=== PATIENT | male | born 1945 | race African-American/Black ===

== ENCOUNTER 2018-07-04 14:17 | Inpatient (IN) | payer MEDICARE, MEDICAID ==
[~2018-07-04] VITALS: Ht 180.3 cm; Wt 99.0 kg
[2018-07-04 14:40] VITALS: BP 146/88
--- NOTE | 2018-07-04 14:47 | Emergency Room Report ---
History of Present Illness General Chief Complaint: Abnormal Labs Source: Patient Present Illness HPI 73-year-old male, bedbound, nonverbal, trach, ventilator dependent, PEG tube, history of CHF, COPD, diabetes, dementia, coming in for abnormal labs. Reportedly patient had labs showing sodium 153, glucose 797 Per [facility] charts, patient has been on vancomycin for positive CR E by rectal swab. No history able to be obtained as patient is nonverbal at this time Allergies: Coded Allergies: No Known Allergies (Unverified , 07/04/18) Patient History Past Medical History: see triage record Past Surgical History: none Pertinent Family History: none Reviewed Nursing Documentation: PMH: Agreed; PSxH: Agreed Nursing Documentation-PMH Hx Cardiac Problems: No - CHF, anemia, hx of cardiac arrest, HF Hx Hypertension: Yes Hx COPD: Yes - tracheostomy, on vent Hx Diabetes: Yes Hx Gastrointestinal Problems: No - dysphagia, g-tube, GERD History Of Psychiatric Problem: No - dementia, anxiety Hx Neurological Problems: No - muscle weakness Hx Seizures: Yes Review of Systems All Other Systems: limited - nonverbal Physical Exam Vital Signs Date Time Temp Pulse Resp B/P (MAP) Pulse Ox O2 Delivery O2 Flow Rate FiO2 07/04/18 14:16 97.5 94 22 120/87 95 Mechanical Ventilator Sp02 EP Interpretation: other - vented General Appearance: moderate distress, lethargic, Chronically Ill Head: normocephalic, atraumatic Eyes: bilateral eye normal inspection, bilateral eye PERRL, bilateral eye EOMI ENT: other - trach Neck: other - trach Respiratory: other - [facility] ventilatory sounds. Cardiovascular #1: normal inspection, regular rate, rhythm, normal capillary refill Cardiovascular #2: 2+ radial (R), 2+ radial (L) Gastrointestinal: other - peg tube, soft abdomen, no grimace to deep palpation Genitourinary: no CVA tenderness Musculoskeletal: other - contracted lower ext Neurologic: other - nonverbal Psychiatric: other Skin: normal inspection, normal color, no rash, warm/dry, well hydrated, normal turgor Procedures Critical Care Time Critical Care Time 40 minutes of CC time 73-year-old male, dehydrated, hyponatremic, hyperglycemic PLAN: IV access, labs, lactate, troponin, Blood/Urine Cx, Abx, IVF Anticipate admission to [facility] CC time also includes review of labs, review of EMR, discussion with family and paperwork from SNF, d/w hospitalist CC could include dosing of pressors, additional Abx CC time does not include procedures Medical Decision Making Diagnostic Impression: Primary Impression: Hypernatremia Additional Impressions: Dehydration Renal insufficiency Elevated troponin I level Tracheostomy dependence Sepsis UTI (urinary tract infection) Pleural effusion ER Course 73-year-old male, abnormal labs, hip or HI [place] hyperglycemic DDX: Severe dehydration, rule out infection, rule out DKA Plan: Obtain labs, ua, EKG, CXR Fluids ER course: Patient has been monitored during ED stay, HD stable Tracheostomy to ventilator +UTI given fluids and abx Sepsis Re-examination Time: 4:56 PM VS: Temp afebrile HR 84 BP 117/79 RR 16 CVS: RRR Respiratory: Tracheostomy, mechanical breath sounds Peripheral pulses: 2+ radial Capillary refill: <2 seconds Skin exam: warm, dry, no rash, not mottled Disposition: Patient is to be admitted to [facility] D/W hospitalist Dr. peña, who said to admit patient to Dr. Galeana who is now aware of pt Please note that this Emergency Department Report was dictated using [employer] fabricator operator technology software, occasionally this can lead to erroneous entry secondary to interpretation by the dictation equipment. EKG Diagnostic Results EP Interpretation: Yes Rate: 105 Rhythm: NSR ST Segments: T-wave inversion V3. T-wave flattening V5 V6 T-wave inversion in lead 3 and aVF ASA given to patient: No Rhythm Strip EP Interpretation: Yes Rate: 100 Rhythm: NSR, no PVCs, no ectopy Chest X-ray CXR: Ordered: Yes 1 view Indication: Altered mental status EP interpretation: Yes Interpretation: Cardiomegaly, tracheostomy in place, bilateral pleural effusion Impression: Cardiomegaly, tracheostomy in place, bilateral pleural effusion Electronically signed by Gulshan Mendez MD Laboratory Tests Test 07/04/18 14:44 07/04/18 14:45 07/04/18 15:10 07/04/18 16:15 Arterial Blood pH 7.431 (7.350-7.450) Arterial Blood Partial Pressure CO2 40.9 mmHg (35.0-45.0) Arterial Blood Partial Pressure O2 96.0 mmHg (75.0-100.0) Arterial Blood HCO3 26.6 mmol/L (22.0-26.0) H Arterial Blood Oxygen Saturation 96.7 % (95-100) Arterial Blood Base Excess 2.1 (-2-2) H Balta Test Positive White Blood Count 16.8 K/UL (4.8-10.8) H Red Blood Count 5.37 M/UL (4.70-6.10) Hemoglobin 15.1 G/DL (14.2-18.0) Hematocrit 47.0 % (42.0-52.0) Mean Corpuscular Volume 88 FL (80-99) Mean Corpuscular Hemoglobin 28.2 PG (27.0-31.0) Mean Corpuscular Hemoglobin Concent 32.2 G/DL (32.0-36.0) Red Cell Distribution Width 16.1 % (11.6-14.8) H Platelet Count 176 K/UL (150-450) Mean Platelet Volume 10.4 FL (6.5-10.1) H Neutrophils (%) (Auto) 62.8 % (45.0-75.0) Lymphocytes (%) (Auto) 27.9 % (20.0-45.0) Monocytes (%) (Auto) 7.8 % (1.0-10.0) Eosinophils (%) (Auto) 0.8 % (0.0-3.0) Basophils (%) (Auto) 0.7 % (0.0-2.0) Sodium Level 157 MMOL/L (136-145) H Potassium Level 3.0 MMOL/L (3.5-5.1) L Chloride Level 116 MMOL/L (98-107) H Carbon Dioxide Level 24 MMOL/L (21-32) Anion Gap 17 mmol/L (5-15) H Blood Urea Nitrogen 59 mg/dL (7-18) H Creatinine 1.9 MG/DL (0.55-1.30) H Estimate Glomerular Filtration Rate mL/min (>60) Glucose Level 344 MG/DL (74-106) H Lactic Acid Level 3.80 mmol/L (0.4-2.0) H Pending Calcium Level 9.5 MG/DL (8.5-10.1) Phosphorus Level 5.8 MG/DL (2.5-4.9) H Magnesium Level 2.6 MG/DL (1.8-2.4) H Total Bilirubin 0.7 MG/DL (0.2-1.0) Aspartate Amino Transferase (AST) 59 U/L (15-37) H Alanine Aminotransferase (ALT) 27 U/L (12-78) Alkaline Phosphatase 89 U/L (46-116) Troponin I 0.152 ng/mL (0.000-0.056) Pro-B-Type Natriuretic Peptide 1031 pg/mL (0-125) H Total Protein 10.7 G/DL (6.4-8.2) H Albumin 2.8 G/DL (3.4-5.0) L Globulin 7.9 g/dL Albumin/Globulin Ratio 0.4 (1.0-2.7) L Urine Color Yellow Urine Appearance Cloudy Urine pH 5 (4.5-8.0) Urine Specific [place] 1.015 (1.005-1.035) Urine Protein 3+ (NEGATIVE) H Urine Glucose (UA) Negative (NEGATIVE) Urine Ketones 1+ (NEGATIVE) H Urine Blood 4+ (NEGATIVE) H Urine Nitrite Negative (NEGATIVE) Urine Bilirubin Negative (NEGATIVE) Urine Urobilinogen 1 MG/DL (0.0-1.0) H Urine Leukocyte Esterase 3+ (NEGATIVE) H Urine RBC 2-4 /HPF (0 - 0) H Urine WBC 5-10 /HPF (0 - 0) H Urine Squamous Epithelial Cells Occasional /LPF Urine Amorphous Sediment Many /LPF (NONE) H Urine Bacteria Moderate /HPF (NONE) H Last Vital Signs Date Time Temp Pulse Resp B/P (MAP) Pulse Ox O2 Delivery O2 Flow Rate FiO2 07/04/18 14:16 97.5 94 22 120/87 95 Mechanical Ventilator Disposition: ADMITTED INPATIENT Condition: Critical Scripts Unable to Obtain Active Prescriptions or Reported Meds Gulshan Mendez M.D. Jul 04, 2018 14:47
[2018-07-04 15:18] LABS: BASOPHILS % (AUTO) 0.7 % (0.0-2.0); EOSINOPHILS % (AUTO) 0.8 % (0.0-3.0); HEMOGLOBIN 15.1 G/DL (14.2-18.0); LYMPHOCYTES % (AUTO) 27.9 % (20.0-45.0); MEAN CORPUSCULAR VOLUME 88 FL (80-99); MONOCYTES % (AUTO) 7.8 % (1.0-10.0); NEUTROPHILS % (AUTO) 62.8 % (45.0-75.0); PLATELET COUNT 176 K/UL (150-450); RED BLOOD COUNT 5.37 M/UL (4.70-6.10); RED CELL DISTRIBUTION WIDTH 16.1 % (11.6-14.8); WHITE BLOOD COUNT 16.8 K/UL (4.8-10.8)
[2018-07-04 15:29] LABS: APPEARANCE,URINE CLOUDY; BILIRUBIN, URINE NEGATIVE (NEGATIVE); GLUCOSE, URINE (UA) NEGATIVE (NEGATIVE); KETONES,URINE 1+ (NEGATIVE); LEUKOCYTE ESTERASE ,URINE 3+ (NEGATIVE); NITRITE,URINE NEGATIVE (NEGATIVE); PH,URINE 5 (4.5-8.0); PROTEIN,URINE 3+ (NEGATIVE); UROBILINOGEN,URINE 1 MG/DL (0.0-1.0)
[2018-07-04 15:35] LABS: ANION GAP 17 mmol/L (5-15); BLOOD UREA NITROGEN 59 mg/dL (7-18); CALCIUM 9.5 MG/DL (8.5-10.1); CARBON DIOXIDE 24 MMOL/L (21-32); CHLORIDE 116 MMOL/L (98-107); CREATININE 1.9 MG/DL (0.55-1.30); SODIUM 157 MMOL/L (136-145)
[2018-07-04 15:38] LABS: COLOR,URINE YELLOW
[2018-07-04 15:46] LABS: ALANINE AMINOTRANSFERASE 27 U/L (12-78); ALBUMIN 2.8 G/DL (3.4-5.0); ALBUMIN/GLOBULIN RATIO 0.4 (1.0-2.7); ALKALINE PHOSPHATASE 89 U/L (46-116); ASPARTATE AMINO TRANSFERASE 59 U/L (15-37); BILIRUBIN,TOTAL 0.7 MG/DL (0.2-1.0); PHOSPHORUS 5.8 MG/DL (2.5-4.9)
[2018-07-04] MEDS ORDERED: Cefepime HCl 1 GM in D5W 55 ML IVPB ONE (16:00)
--- NOTE | 2018-07-04 16:24 | Diagnostic Imaging Report ---
Indication: Chest pain Comparison: None A single view chest radiograph was obtained. Findings: Tracheostomy is present. The heart is enlarged. There is basilar infiltrate versus atelectasis on the left. Suspect a small pleural effusion as well. Lung volumes are low. IMPRESSION: Suspected left basal infiltrate versus atelectasis.
[2018-07-04 16:30] VITALS: BP 142/83
[2018-07-04 17:30] VITALS: BP 136/71
[2018-07-04] MEDS ORDERED: VANCOMYCIN HCL125 MG IVPB (17:42)
[2018-07-04 18:15] VITALS: BP 114/75
[2018-07-04] MEDS ORDERED: Albuterol/Ipratropium 3ml neb HHN PRN (19:30)
[2018-07-04] MEDS ORDERED: Acetaminophen 650mg/20.3ml GT PRN (19:42)
[2018-07-04 20:00] VITALS: BP 118/71
[2018-07-04] MEDS ORDERED: Vancomycin 1250mg/D5W 250ml IVPB SCH (20:00)
[2018-07-04] MEDS: levETIRAcetam 500mg/5ml Liquid GT SCH (20:26)
[2018-07-04] MEDS: Heparin 5000 units/ml inj SUBQ SCH (20:27)
[2018-07-04] MEDS ORDERED: Potassium Chloride 10 MEQ in D5 1/2NS 1,000 ML IV SCH (21:00)
[2018-07-04] MEDS: Piperacillin/Tazobactam 3.375 GM in NS 110 ML IVPB SCH (22:40)
[2018-07-04] MEDS ORDERED: VANCOMYCIN HCL1 G1 IV (22:56)
[2018-07-04] MEDS ORDERED: DUONEB 0.5-3(2.53 ML HHN (22:56)
[2018-07-04] MEDS ORDERED: LANTUS SOL100 UNIT/1 SUBQ (22:56)
[2018-07-04] MEDS: NovoLOG Insulin Flexpen SUBQ SCH (23:38)
[2018-07-05] VITALS: BP 111/73
[2018-07-05 04:00] VITALS: BP 112/70
[2018-07-05] MEDS: Piperacillin/Tazobactam 3.375 GM in NS 110 ML IVPB SCH ×3 (05:04→21:06)
[2018-07-05] MEDS: NovoLOG Insulin Flexpen SUBQ SCH ×3 (05:06→17:21)
[2018-07-05 06:07] LABS: HEMATOCRIT 42.2 % (42.0-52.0); MEAN CORPUSCULAR VOLUME 87 FL (80-99); PLATELET COUNT 152 K/UL (150-450); RED BLOOD COUNT 4.84 M/UL (4.70-6.10); WHITE BLOOD COUNT 18.5 K/UL (4.8-10.8)
[2018-07-05 06:38] LABS: ALANINE AMINOTRANSFERASE 28 U/L (12-78); ALBUMIN 2.4 G/DL (3.4-5.0); ALBUMIN/GLOBULIN RATIO 0.3 (1.0-2.7); ALKALINE PHOSPHATASE 77 U/L (46-116); ANION GAP 15 mmol/L (5-15); ASPARTATE AMINO TRANSFERASE 41 U/L (15-37); BILIRUBIN,TOTAL 1.1 MG/DL (0.2-1.0); BLOOD UREA NITROGEN 54 mg/dL (7-18); CALCIUM 8.8 MG/DL (8.5-10.1); CARBON DIOXIDE 27 MMOL/L (21-32); CHLORIDE 117 MMOL/L (98-107); CREATININE 1.5 MG/DL (0.55-1.30); SODIUM 159 MMOL/L (136-145)
[2018-07-05 06:40] LABS: POTASSIUM 2.4 MMOL/L (3.5-5.1)
[2018-07-05 07:41] LABS: BILIRUBIN,DIRECT 0.4 MG/DL (0.0-0.3)
[2018-07-05 07:47] LABS: CKMB 1.6 NG/ML (0.0-3.6)
[2018-07-05 08:00] VITALS: BP 106/68
[2018-07-05] MEDS: levETIRAcetam 500mg/5ml Liquid GT SCH ×2 (09:22→20:12)
[2018-07-05] MEDS: Levemir Flexpen SUBQ SCH ×2 (09:24→17:22)
[2018-07-05] MEDS: Heparin 5000 units/ml inj SUBQ SCH ×2 (09:27→20:14)
[2018-07-05 11:23] VITALS: BP 127/83
--- NOTE | 2018-07-05 12:45 | History and Physical Report ---
DATE OF ADMISSION: 07/04/2018 CHIEF COMPLAINT: Sepsis, acute renal failure, chronic respiratory failure. HISTORY OF PRESENT ILLNESS: The patient is an unfortunate 73-year-old male. He has a history of anoxic encephalopathy, stroke, and seizure disorder. He has chronic respiratory failure and is now vent dependent, has a history of hypertension and cirrhosis. [facility] with complaints of abnormal laboratories. The patient was noted to have routine laboratories that showed worsening renal failure, leukocytosis, low potassium. On evaluation in the emergency room, the abnormal laboratories are verified and repeated. The patient was noted to have evidence of pneumonia, urinary tract infection. Broad-spectrum antibiotics were instituted and the patient was cultured. He is now admitted for further evaluation and care. He is nonverbal at baseline. He is unable to provide any history. PAST MEDICAL HISTORY: As above. PAST SURGICAL HISTORY: Includes a history of G-tube and tracheostomy. CURRENT MEDICATIONS: Reconciled and reviewed. ALLERGIES: None. FAMILY HISTORY: Unknown. SOCIAL HISTORY: There is no known history of tobacco, ethanol, or drugs. REVIEW OF SYSTEMS: From the patient is unobtainable as he is nonverbal at baseline. PHYSICAL EXAMINATION: VITAL SIGNS: Temperature 97.5, pulse 96, respirations 20, and blood pressure 112/70. GENERAL: The patient is a chronic ill-appearing male, in no apparent distress. He is nonverbal. NECK: Supple. Trach site was midline and clean. HEART: Regular rate and rhythm. LUNGS: Clear. ABDOMEN: Soft and nontender. Slightly distended. EXTREMITIES: No clubbing, cyanosis, or edema. LABORATORY AND DIAGNOSTIC DATA: Laboratories showed a sodium of 159, potassium 2.4, chloride 117, bicarb 27, BUN 54, creatinine 1.5. Bilirubin of 1.1. Troponin 0.134. Lactic acid level was 3. Natriuretic peptide level was 1000. Urine showed 5 to 10 wbc's. Chest x-ray showed left basilar infiltrate. ASSESSMENT: This is an unfortunate male with multiple medical problems admitted with complaints of sepsis secondary to pneumonia and urinary tract infection. PROBLEM LIST: 1. Sepsis. 2. Pneumonia. 3. Hypernatremia and dehydration. 4. Toxic metabolic encephalopathy. 5. Seizure disorder. 6. Acute renal failure. 7. Functional quadriplegia. 8. Cirrhosis. PLAN: IV hydration with hypotonic fluids. IV antibiotics. ID, Pulmonary, Cardiology, and Renal consultations to be obtained. We will monitor laboratories closely. Continue vent support. Respiratory treatments. The patient's status is currently guarded. Chano Galeana M.D. DR: JESI JOB#: [id number] CC:
[2018-07-05 16:00] VITALS: BP 128/78
[2018-07-05 16:45] LABS: ANION GAP 13 mmol/L (5-15); BLOOD UREA NITROGEN 58 mg/dL (7-18); CALCIUM 8.4 MG/DL (8.5-10.1); CARBON DIOXIDE 26 MMOL/L (21-32); CHLORIDE 120 MMOL/L (98-107); CREATININE 1.5 MG/DL (0.55-1.30); POTASSIUM 3.2 MMOL/L (3.5-5.1); SODIUM 159 MMOL/L (136-145)
[2018-07-05] MEDS: Vancomycin 1.5 GM/D5W 250ML IVPB SCH (16:47)
[2018-07-05 20:00] VITALS: BP 107/65
--- NOTE | 2018-07-05 22:18 | Pulmonology Progress Note ---
Assessment/Plan Assessment/Plan PULMONARY CONSULTATION NOTE HISTORY OF PRESENT ILLNESS: The patient is an unfortunate 73-year-old male. He has a history of anoxic encephalopathy, stroke, and seizure disorder. He has chronic respiratory failure and is now vent dependent, has a history of COPD, CAD, hypertension and cirrhosis. [facility] with complaints of abnormal laboratories. The patient was noted to have routine laboratories that showed worsening renal failure, leukocytosis, low potassium. On evaluation in the emergency room, the abnormal laboratories are verified and repeated. The patient was noted to have evidence of pneumonia, urinary tract infection. Broad-spectrum antibiotics were instituted and the patient was cultured. He is now admitted for further evaluation and care. He is nonverbal at baseline. He is unable to provide any history. PAST MEDICAL HISTORY: As above. PAST SURGICAL HISTORY: Includes a history of G-tube and tracheostomy. CURRENT MEDICATIONS: Reconciled and reviewed. ALLERGIES: None. FAMILY HISTORY: Unknown. SOCIAL HISTORY: There is no known history of tobacco, ethanol, or drugs. REVIEW OF SYSTEMS: From the patient is unobtainable as he is nonverbal at baseline. PHYSICAL EXAMINATION: VITAL SIGNS: Temperature 97.5, pulse 96, respirations 20, and blood pressure 112/70. GENERAL: The patient is a chronic ill-appearing male, in no apparent distress. He is nonverbal. NECK: Supple. Trach site was midline and clean. HEART: Regular rate and rhythm. LUNGS: Clear. ABDOMEN: Soft and nontender. Slightly distended. EXTREMITIES: No clubbing, cyanosis, or edema. LABORATORY AND DIAGNOSTIC DATA: Laboratories showed a sodium of 159, potassium 2.4, chloride 117, bicarb 27, BUN 54, creatinine 1.5. Bilirubin of 1.1. Troponin 0.134. Lactic acid level was 3. Natriuretic peptide level was 1000. Urine showed 5 to 10 wbc's. Chest x-ray showed left basilar infiltrate. ASSESSMENT: This is an unfortunate male with multiple medical problems admitted with complaints of sepsis secondary to pneumonia and urinary tract infection. PROBLEM LIST: 1. Sepsis. 2. Pneumonia, COPD 3. Hypernatremia and dehydration. 4. Toxic metabolic encephalopathy. 5. Seizure disorder. 6. Acute renal failure. 7. Functional quadriplegia. 8. Cirrhosis. 9. CAD PLAN: IV hydration with hypotonic fluids. IV antibiotics. Continue current ventilator settings. We will monitor laboratories closely. Continue vent support. Respiratory treatments. The patient's status is currently guarded. Subjective ROS Limited/Unobtainable: Yes Allergies: Coded Allergies: No Known Allergies (Unverified , 07/04/18) Objective Last 24 Hour Vital Signs Date Time Temp Pulse Resp B/P (MAP) Pulse Ox O2 Delivery O2 Flow Rate FiO2 07/05/18 21:57 80 16 36 07/05/18 20:00 98.1 86 16 107/65 (79) 99 07/05/18 20:00 87 07/05/18 20:00 36 07/05/18 20:00 Mechanical Ventilator 07/05/18 19:16 91 16 36 07/05/18 17:28 106 16 36 07/05/18 16:00 Mechanical Ventilator 07/05/18 16:00 105 07/05/18 16:00 97.7 104 20 128/78 (95) 99 07/05/18 16:00 36 07/05/18 14:42 81 16 36 07/05/18 12:41 85 16 36 07/05/18 12:00 99 07/05/18 12:00 36 07/05/18 11:35 Mechanical Ventilator 07/05/18 11:23 97.3 94 20 127/83 (98) 100 07/05/18 11:18 98 16 36 07/05/18 08:42 85 16 36 07/05/18 08:17 36 07/05/18 08:00 Mechanical Ventilator 07/05/18 08:00 97.7 80 20 106/68 (81) 99 07/05/18 07:47 79 07/05/18 06:56 83 16 36 07/05/18 05:11 86 16 36 07/05/18 04:00 36 07/05/18 04:00 97.5 88 20 112/70 (84) 99 07/05/18 04:00 Mechanical Ventilator 07/05/18 04:00 96 07/05/18 03:10 100 16 36 07/05/18 01:26 110 16 36 07/05/18 00:00 Mechanical Ventilator 07/05/18 00:00 97.8 79 22 111/73 (86) 98 07/05/18 00:00 101 07/05/18 00:00 36 07/04/18 23:30 91 20 36 Intake and Output 07/04/18 07/05/18 19:00 07:00 Intake Total 1548.0 ml Output Total 275 ml Balance 1273.0 ml Intake Free Water 300 ml IV Total 1073.0 ml Tube Feeding 175 ml Output Urine Total 275 ml # Bowel Movements 4 Microbiology Date/Time Source Procedure Growth Status 07/04/18 15:10 Urine,Clean Catch Urine Culture - Preliminary Gram Negative Bacillus 1 Resulted Laboratory Tests 07/05/18 04:01: White Blood Count 18.5H, Red Blood Count 4.84, Hemoglobin 14.0L, Hematocrit 42.2 , Mean Corpuscular Volume 87, Mean Corpuscular Hemoglobin 28.9, Mean Corpuscular Hemoglobin Concent 33.2, Red Cell Distribution Width 16.0H, Platelet Count 152, Mean Platelet Volume 12.5H, Neutrophils (%) (Auto) , Lymphocytes (%) (Auto) , Monocytes (%) (Auto) , Eosinophils (%) (Auto) , Basophils (%) (Auto) , Differential Total Cells Counted 100, Neutrophils % ( Manual) 77H, Lymphocytes % (Manual) 17L, Monocytes % (Manual) 5, Eosinophils % ( Manual) 1, Basophils % (Manual) 0, Band Neutrophils 0, Platelet Estimate Adequate, Platelet Morphology Normal, Anisocytosis 1+, Sodium Level 159H, Potassium Level 2.4*L, Chloride Level 117H, Carbon Dioxide Level 27, Anion Gap 15, Blood Urea Nitrogen 54H, Creatinine 1.5H, Estimat Glomerular Filtration Rate , Glucose Level 394H, Hemoglobin A1c 9.2H, Lactic Acid Level 3.00H, Calcium Level 8.8, Total Bilirubin 1.1H, Direct Bilirubin 0.4H, Aspartate Amino Transf (AST/SGOT) 41H, Alanine Aminotransferase (ALT/SGPT) 28, Alkaline Phosphatase 77, Total Creatine Kinase 922H, Creatine Kinase MB 1.6, Creatine Kinase MB Relative Index 0.1, Troponin I 0.134H, Total Protein 9.3H, Albumin 2.4L, Globulin 6.9, Albumin/Globulin Ratio 0.3L, Thyroid Stimulating Hormone ( TSH) 1.210 07/05/18 11:20: Lactic Acid Level 1.80 07/05/18 16:00: Sodium Level 159H, Potassium Level 3.2L, Chloride Level 120H, Carbon Dioxide Level 26, Anion Gap 13, Blood Urea Nitrogen 58H, Creatinine 1.5H, Estimat Glomerular Filtration Rate , Glucose Level 374H, Calcium Level 8.4L Current Medications Medications (Trade) Dose Ordered Sig/Derrick Route PRN Reason Start Time Stop Time Status Last Admin Dose Admin Acetaminophen (Tylenol) 650 mg Q4H PRN GT Mild Pain/Temp > 100.5 07/04/18 19:42 08/03/18 19:40 Albuterol/ Ipratropium (Albuterol/ Ipratropium) 3 ml Q4H PRN HHN Shortness of Breath 07/04/18 19:30 07/09/18 19:29 Dextrose (Dextrose 50%) 25 ml Q30M PRN IV Hypoglycemia 07/04/18 22:45 08/03/18 22:44 Dextrose (Dextrose 50%) 50 ml Q30M PRN IV Hypoglycemia 07/04/18 22:45 08/03/18 22:44 Heparin Sodium (Porcine) (Heparin 5000 units/ml) 5,000 units EVERY 12 HOURS SUBQ 07/04/18 21:00 08/03/18 20:59 07/05/18 20:14 Insulin Aspart (NovoLOG) EVERY 6 HOURS SUBQ 07/05/18 00:00 08/04/18 00:00 07/05/18 17:21 Insulin Detemir (Levemir) 15 units BID SUBQ 07/05/18 09:00 08/04/18 08:59 07/05/18 17:22 Lansoprazole (Prevacid) 30 mg DAILY GT 07/05/18 09:00 08/04/18 08:59 07/05/18 09:23 Levetiracetam (Keppra) 500 mg Q12HR GT 07/04/18 21:00 08/03/18 20:59 07/05/18 20:12 Piperacillin Sod/ Tazobactam Sod 3.375 gm/Sodium Chloride 110 ml @ 27.5 mls/hr EVERY 8 HOURS IVPB 07/04/18 22:00 07/09/18 21:59 07/05/18 21:06 Sodium Chloride 1,000 ml @ 75 mls/hr [id number] IV 07/05/18 06:45 08/04/18 06:44 07/05/18 20:12 Vancomycin HCl (Vanco rx to dose) 1 ea DAILY PRN MISC Per rx protocol 07/04/18 19:30 08/03/18 19:29 Vancomycin HCl/ Dextrose 250 ml @ 125 mls/hr Q24H IVPB 07/05/18 16:00 07/10/18 15:59 07/05/18 16:47 Sea Nieto MD Jul 05, 2018 22:18
[2018-07-06] VITALS: BP 112/74
[2018-07-06] MEDS: NovoLOG Insulin Flexpen SUBQ SCH ×5 (00:13→23:27)
--- NOTE | 2018-07-06 01:45 | Progress Note ---
DATE: 07/05/2018 CARDIOLOGY PROGRESS NOTE SUBJECTIVE: The patient is nonverbal. He remains on ventilator support. Monitored rhythm, sinus. Rare atrial ectopics. He remains ventilated via tracheostomy. OBJECTIVE: VITAL SIGNS: Blood pressure 107/65, pulse 86, and respirations 16. Afebrile. HEENT: Thin trach secretions. LUNGS: Coarse breath sounds. No wheezing. HEART: Regular rhythm and rate. Normal S1, S2 with a fourth heart sound. ABDOMEN: Soft. G-tube intact. EXTREMITIES: With contractures. No edema. LABORATORY DATA: Urine culture, gram-negative bacillus. Chemistry panel and troponin pending. White count 18.5 and hemoglobin 14. Chest x-ray pending. IMPRESSION: 1. Acute myocardial ischemia. 2. Possible non-ST elevation infarction. 3. Dehydration. 4. Hypernatremia. 5. Urinary tract infection with sepsis. 6. Diabetes mellitus, out of control. 7. Lactic acidosis. 8. Hypokalemia. 9. Ventilator-dependent respiratory failure. 10. Cerebrovascular disease with dementia. PLAN: 1. Review EKG. 2. Add anti-platelet therapy with aspirin. 3. Await troponin level and chemistry panel. 4. Replace electrolytes as needed. 5. Hydrate. 6. Empiric antibiotics. 7. Await final urine cultures. 8. DVT prophylaxis. 9. Nutrition by feeding tube. 10. Remains high risk. Sea Madison M.D. DR: DESMOND JOB#: [id number] CC:
--- NOTE | 2018-07-06 03:01 | Consultation ---
DATE OF CONSULTATION: 07/04/2018 CARDIOLOGY CONSULTATION CONSULTING PHYSICIAN: Sea Madison M.D. REQUESTING PHYSICIAN: Chano Galeana M.D. REASON FOR CONSULTATION: Elevated troponin level. HISTORY OF PRESENT ILLNESS: This is a 73-year-old male bed-bound and ventilator-dependent with tracheostomy. He is nonverbal at baseline. He was brought into the hospital for evaluation of abnormal lab studies. He was noted to have glucose of almost 800, abnormal electrolytes, and an elevated troponin level. I have been asked to assist with cardiovascular care. The patient is unable to complain of any chest discomfort and has not had any reported signs of heart failure. ALLERGIES: None. MEDICATIONS: Prior to admission, reviewed and reconciled. PAST MEDICAL HISTORY: From records reveals history of cardiac arrest, history of congestive heart failure, heart disease, COPD, respiratory failure with tracheostomy, noninsulin-requiring diabetes mellitus, dysphagia with G-tube, gastroesophageal reflux disease, cerebrovascular disease with advanced dementia, and seizure disorder. FAMILY HISTORY: Not known. SOCIAL HISTORY: Not known. REVIEW OF SYSTEMS: Otherwise not obtainable. Pertinent data from review of [facility] chart as outlined above. PHYSICAL EXAMINATION: VITAL SIGNS: Blood pressure 120/87, pulse 94, respiratory rate 22, and afebrile. HEENT: Temporal wasting. Pale conjunctivae. Oropharynx clear. Trach site with no bleeding. Thin secretions. LUNGS: Bilateral breath sounds with rhonchi. CARDIAC: Regular rhythm and rate. Normal S1 and S2 with no appreciable murmur. ABDOMEN: Soft. G-tube intact. EXTREMITIES: With contractures. No edema. SKIN: Turgor is slightly decreased. LABORATORY AND IMAGING DATA: White count 16.8 and hemoglobin 15.1. Troponin 0.152. Lactic acid level 3.6. BUN 59, creatinine 1.9, sodium 157, potassium 3.0, chloride 116, and glucose now 344. Natriuretic peptide over 1000. Albumin 2.8. EKG, sinus tachycardia at [address]-T wave changes. Chest x-ray, cardiomegaly and bilateral pleural effusions. IMPRESSION: 1. Toxic and metabolic encephalopathy. 2. Acute myocardial ischemia. 3. Possible non-ST elevation myocardial infarction. 4. Sinus tachycardia. 5. Dehydration. 6. Hypernatremia. 7. Diabetes, out of control. 8. Pleural effusions. 9. Lactic acidosis. 10. Sepsis due to urinary tract infection. 11. Respiratory failure with tracheostomy. 12. Hypokalemia. 13. Hyperchloremia. 14. Acute on chronic renal failure. 15. Moderate protein-calorie malnutrition. 16. Chronic diastolic congestive heart failure. 17. Leukocytosis. PLAN: 1. Ventilator support. 2. Panculture. 3. Empiric antibiotics. 4. Hypotonic IV fluid hydration. 5. Potassium replacement. 6. Serial lactic acid levels. 7. DVT prophylaxis. 8. Skin care. 9. Serial troponin levels. 10. Anti-platelet therapy with aspirin if no signs of bleeding. 11. Insulin titration per sliding scale. Sea Madison M.D. DR: KYM JOB#: [id number] CC:
[2018-07-06 04:00] VITALS: BP 121/69
[2018-07-06] MEDS: Piperacillin/Tazobactam 3.375 GM in NS 110 ML IVPB SCH ×3 (05:06→21:05)
[2018-07-06 05:21] LABS: BASOPHILS % (AUTO) 0.5 % (0.0-2.0); HEMATOCRIT 39.2 % (42.0-52.0); HEMOGLOBIN 12.7 G/DL (14.2-18.0); LYMPHOCYTES % (AUTO) 19.3 % (20.0-45.0); MEAN CORPUSCULAR VOLUME 87 FL (80-99); MONOCYTES % (AUTO) 6.4 % (1.0-10.0); NEUTROPHILS % (AUTO) 70.8 % (45.0-75.0); PLATELET COUNT 132 K/UL (150-450); RED BLOOD COUNT 4.51 M/UL (4.70-6.10); RED CELL DISTRIBUTION WIDTH 16.2 % (11.6-14.8); WHITE BLOOD COUNT 13.3 K/UL (4.8-10.8)
[2018-07-06 05:37] LABS: ANION GAP 11 mmol/L (5-15); BLOOD UREA NITROGEN 55 mg/dL (7-18); CALCIUM 8.4 MG/DL (8.5-10.1); CARBON DIOXIDE 28 MMOL/L (21-32); CHLORIDE 120 MMOL/L (98-107); CREATININE 1.6 MG/DL (0.55-1.30); POTASSIUM 2.9 MMOL/L (3.5-5.1); SODIUM 159 MMOL/L (136-145)
[2018-07-06 08:14] VITALS: BP 125/77
[2018-07-06] MEDS: Aspirin Baby 81mg GT SCH (08:15)
[2018-07-06] MEDS: Heparin 5000 units/ml inj SUBQ SCH ×2 (08:16→20:12)
[2018-07-06] MEDS: levETIRAcetam 500mg/5ml Liquid GT SCH ×2 (08:16→20:09)
[2018-07-06] MEDS: Levemir Flexpen SUBQ SCH ×2 (08:35→17:57)
--- NOTE | 2018-07-06 09:54 | General Progress Note ---
Assessment/Plan Problem List: (1) Hyperglycemia ICD Codes: R73.9 - Hyperglycemia, unspecified SNOMED: 18376885 (2) Pleural effusion ICD Codes: J90 - Pleural effusion, not elsewhere classified SNOMED: 17511230 (3) Sepsis ICD Codes: A41.9 - Sepsis, unspecified organism SNOMED: 14455179 (4) UTI (urinary tract infection) ICD Codes: N39.0 - Urinary tract infection, site not specified SNOMED: 07250747 (5) Tracheostomy dependence ICD Codes: Z93.0 - Tracheostomy status SNOMED: 517416208, 784616412 (6) Elevated troponin I level ICD Codes: R74.8 - Abnormal levels of other serum enzymes SNOMED: 138236735 Status: stable, not improved Assessment/Plan ivf- adjusted iv abx gt feeds sz rx follow up cultures monitor labs check abd us Subjective ROS Limited/Unobtainable: Yes Constitutional: Reports: malaise, weakness HEENT: Reports: no symptoms Cardiovascular: Reports: no symptoms Respiratory: Reports: no symptoms Gastrointestinal/Abdominal: Reports: no symptoms Genitourinary: Reports: no symptoms Neurologic/Psychiatric: Reports: no symptoms Allergies: Coded Allergies: No Known Allergies (Unverified , 07/04/18) All Systems: reviewed and negative except above Subjective no events. the same Na level remains high. no fever or chills. Objective Last 24 Hour Vital Signs Date Time Temp Pulse Resp B/P (MAP) Pulse Ox O2 Delivery O2 Flow Rate FiO2 07/06/18 09:03 73 16 36 07/06/18 08:48 75 07/06/18 08:14 97.7 73 16 125/77 (93) 100 07/06/18 07:14 74 16 36 07/06/18 04:48 71 16 36 07/06/18 04:00 75 07/06/18 04:00 Mechanical Ventilator 07/06/18 04:00 97.9 84 16 121/69 (86) 100 07/06/18 04:00 36 07/06/18 03:10 78 16 36 07/06/18 01:02 77 16 36 07/06/18 00:00 36 07/06/18 00:00 Mechanical Ventilator 07/06/18 00:00 98.3 91 18 112/74 (87) 100 07/06/18 00:00 79 07/05/18 22:55 80 16 36 07/05/18 21:57 80 16 36 07/05/18 20:00 98.1 86 16 107/65 (79) 99 07/05/18 20:00 87 07/05/18 20:00 36 07/05/18 20:00 Mechanical Ventilator 07/05/18 19:16 91 16 36 07/05/18 17:28 106 16 36 07/05/18 16:00 Mechanical Ventilator 07/05/18 16:00 105 07/05/18 16:00 97.7 104 20 128/78 (95) 99 07/05/18 16:00 36 07/05/18 14:42 81 16 36 07/05/18 12:41 85 16 36 07/05/18 12:00 99 07/05/18 12:00 36 07/05/18 11:35 Mechanical Ventilator 07/05/18 11:23 97.3 94 20 127/83 (98) 100 07/05/18 11:18 98 16 36 Intake and Output 07/05/18 07/06/18 19:00 07:00 Intake Total 1672.5 ml 1678.5 ml Output Total 301 ml 450 ml Balance 1371.5 ml 1228.5 ml Intake Free Water 300 ml 300 ml IV Total 902.5 ml 1018.5 ml Tube Feeding 350 ml 360 ml Other 120 ml Output Urine Total 300 ml 450 ml Stool Total 1 ml # Bowel Movements 1 Laboratory Tests 07/05/18 11:20: Lactic Acid Level 1.80 07/05/18 16:00: Sodium Level 159H, Potassium Level 3.2L, Chloride Level 120H, Carbon Dioxide Level 26, Anion Gap 13, Blood Urea Nitrogen 58H, Creatinine 1.5H, Estimat Glomerular Filtration Rate , Glucose Level 374H, Calcium Level 8.4L 07/06/18 04:25: Sodium Level 159H, Potassium Level 2.9L, Chloride Level 120H, Carbon Dioxide Level 28, Anion Gap 11, Blood Urea Nitrogen 55H, Creatinine 1.6H, Estimat Glomerular Filtration Rate , Glucose Level 275#H, Calcium Level 8.4L, White Blood Count 13.3H, Red Blood Count 4.51L, Hemoglobin 12.7L, Hematocrit 39.2L, Mean Corpuscular Volume 87, Mean Corpuscular Hemoglobin 28.2, Mean Corpuscular Hemoglobin Concent 32.4, Red Cell Distribution Width 16.2H, Platelet Count 132L , Mean Platelet Volume 12.3H, Neutrophils (%) (Auto) 70.8, Lymphocytes (%) (Auto ) 19.3L, Monocytes (%) (Auto) 6.4, Eosinophils (%) (Auto) 3.0, Basophils (%) ( Auto) 0.5, Magnesium Level 2.5H, Troponin I 0.082H, Pro-B-Type Natriuretic Peptide 641H Height (Feet): 5 Height (Inches): 11.00 Weight (Pounds): 200 General Appearance: WD/WN, lethargic, confused Neck: supple Cardiovascular: normal rate Respiratory/Chest: lungs clear Abdomen: normal bowel sounds, non tender, soft, no organomegaly Edema: no edema noted Arm (L), no edema noted Arm (R), no edema noted Leg (L), no edema noted Leg (R), no edema noted Pedal (L), no edema noted Pedal (R), no edema noted Generalized Chano Galeana MD Jul 06, 2018 09:54
[2018-07-06] MEDS ORDERED: NS 275ml ONE (10:40)
[2018-07-06] MEDS ORDERED: Tubing IV Secondary IV ONE (10:40)
[2018-07-06] MEDS ORDERED: 1/2 NS 1000ml IV ONE (10:40)
[2018-07-06 11:38] VITALS: BP 137/82
[2018-07-06] MEDS: Vancomycin 1.5 GM/D5W 250ML IVPB SCH (15:41)
[2018-07-06 15:42] VITALS: BP_SYST 113; BP_DIAS 7; BP_DIAS 72
--- NOTE | 2018-07-06 17:57 | Pulmonology Progress Note ---
Assessment/Plan Assessment/Plan PULMONARY CONSULTATION NOTE HISTORY OF PRESENT ILLNESS: The patient is an unfortunate 73-year-old male. He has a history of anoxic encephalopathy, stroke, and seizure disorder. He has chronic respiratory failure and is now vent dependent, has a history of COPD, CAD, hypertension and cirrhosis. He was transferred from a shelter facility with complaints of abnormal laboratories. The patient was noted to have routine laboratories that showed worsening renal failure, leukocytosis, low potassium. On evaluation in the emergency room, the abnormal laboratories are verified and repeated. The patient was noted to have evidence of pneumonia, urinary tract infection. Broad-spectrum antibiotics were instituted and the patient was cultured. He is now admitted for further evaluation and care. He is nonverbal at baseline. He is unable to provide any history. PAST MEDICAL HISTORY: As above. PAST SURGICAL HISTORY: Includes a history of G-tube and tracheostomy. CURRENT MEDICATIONS: Reconciled and reviewed. ALLERGIES: None. FAMILY HISTORY: Unknown. SOCIAL HISTORY: There is no known history of tobacco, ethanol, or drugs. REVIEW OF SYSTEMS: From the patient is unobtainable as he is nonverbal at baseline. PHYSICAL EXAMINATION: VITAL SIGNS: Temperature 97.5, pulse 96, respirations 20, and blood pressure 112/70. GENERAL: The patient is a chronic ill-appearing male, in no apparent distress. He is nonverbal. NECK: Supple. Trach site was midline and clean. HEART: Regular rate and rhythm. LUNGS: Clear. ABDOMEN: Soft and nontender. Slightly distended. EXTREMITIES: No clubbing, cyanosis, or edema. LABORATORY AND DIAGNOSTIC DATA: Laboratories showed a sodium of 159, potassium 2.4, chloride 117, bicarb 27, BUN 54, creatinine 1.5. Bilirubin of 1.1. Troponin 0.134. Lactic acid level was 3. Natriuretic peptide level was 1000. Urine showed 5 to 10 wbc's. Chest x-ray suspected left basal infiltrate versus atelectasis. ASSESSMENT: This is an unfortunate male with multiple medical problems admitted with complaints of sepsis secondary to pneumonia and urinary tract infection. PROBLEM LIST: 1. Sepsis. 2. Pneumonia, COPD 3. Hypernatremia and dehydration. 4. Toxic metabolic encephalopathy. 5. Seizure disorder. 6. Acute renal failure. 7. Functional quadriplegia. 8. Cirrhosis. 9. CAD PLAN: IV hydration with hypotonic fluids. IV antibiotics. Continue current ventilator settings. We will monitor laboratories closely. Continue vent support. Respiratory treatments. The patient's status is currently guarded. Subjective ROS Limited/Unobtainable: Yes Allergies: Coded Allergies: No Known Allergies (Unverified , 07/04/18) Objective Last 24 Hour Vital Signs Date Time Temp Pulse Resp B/P (MAP) Pulse Ox O2 Delivery O2 Flow Rate FiO2 07/06/18 16:39 79 16 36 07/06/18 16:00 Mechanical Ventilator 07/06/18 16:00 36 07/06/18 15:42 97.9 84 16 113/72 (86) 100 07/06/18 15:29 80 07/06/18 14:37 80 16 36 07/06/18 13:14 82 07/06/18 12:59 90 16 36 07/06/18 12:00 36 07/06/18 12:00 Mechanical Ventilator 07/06/18 11:38 98.1 79 16 137/82 (100) 99 07/06/18 10:30 87 16 36 07/06/18 09:03 73 16 36 07/06/18 08:48 75 07/06/18 08:14 97.7 73 16 125/77 (93) 100 07/06/18 08:00 Mechanical Ventilator 07/06/18 08:00 36 07/06/18 07:14 74 16 36 07/06/18 04:48 71 16 36 07/06/18 04:00 75 07/06/18 04:00 Mechanical Ventilator 07/06/18 04:00 97.9 84 16 121/69 (86) 100 07/06/18 04:00 36 07/06/18 03:10 78 16 36 07/06/18 01:02 77 16 36 07/06/18 00:00 36 07/06/18 00:00 Mechanical Ventilator 07/06/18 00:00 98.3 91 18 112/74 (87) 100 07/06/18 00:00 79 07/05/18 22:55 80 16 36 07/05/18 21:57 80 16 36 07/05/18 20:00 98.1 86 16 107/65 (79) 99 07/05/18 20:00 87 07/05/18 20:00 36 07/05/18 20:00 Mechanical Ventilator 07/05/18 19:16 91 16 36 Intake and Output 07/05/18 07/06/18 19:00 07:00 Intake Total 1672.5 ml 1678.5 ml Output Total 301 ml 450 ml Balance 1371.5 ml 1228.5 ml Intake Free Water 300 ml 300 ml IV Total 902.5 ml 1018.5 ml Tube Feeding 350 ml 360 ml Other 120 ml Output Urine Total 300 ml 450 ml Stool Total 1 ml # Bowel Movements 1 Microbiology Date/Time Source Procedure Growth Status 07/04/18 14:50 Blood Blood Culture - Preliminary NO GROWTH AFTER 24 HOURS Resulted 07/04/18 14:45 Blood Blood Culture - Preliminary NO GROWTH AFTER 24 HOURS Resulted 07/04/18 15:10 Nasal Nares MRSA Culture - Final NO METHICILLIN RESISTANT STAPH AUREUS... Complete 07/04/18 15:10 Urine,Clean Catch Urine Culture - Final Escherichia Coli Complete 07/04/18 15:10 Rectum VRE Culture - Final NO VANCOMYCIN RESISTANT ENTEROCOCCUS ... Complete 07/04/18 15:10 Rectum - Final NO CARBAPENEM-RESISTANT ENTEROBACTERI... Complete Laboratory Tests 07/06/18 04:25: White Blood Count 13.3H, Red Blood Count 4.51L, Hemoglobin 12.7L, Hematocrit 39.2L, Mean Corpuscular Volume 87, Mean Corpuscular Hemoglobin 28.2, Mean Corpuscular Hemoglobin Concent 32.4, Red Cell Distribution Width 16.2H, Platelet Count 132L, Mean Platelet Volume 12.3H, Neutrophils (%) (Auto) 70.8, Lymphocytes (%) (Auto) 19.3L, Monocytes (%) (Auto) 6.4, Eosinophils (%) (Auto) 3.0, Basophils (%) (Auto) 0.5, Sodium Level 159H, Potassium Level 2.9L, Chloride Level 120H, Carbon Dioxide Level 28, Anion Gap 11, Blood Urea Nitrogen 55H, Creatinine 1.6H, Estimat Glomerular Filtration Rate , Glucose Level 275#H, Calcium Level 8.4L, Magnesium Level 2.5H, Troponin I 0.082H, Pro-B-Type Natriuretic Peptide 641H Current Medications Medications (Trade) Dose Ordered Sig/Derrick Route PRN Reason Start Time Stop Time Status Last Admin Dose Admin Acetaminophen (Tylenol) 650 mg Q4H PRN GT Mild Pain/Temp > 100.5 07/04/18 19:42 08/03/18 19:40 Albuterol/ Ipratropium (Albuterol/ Ipratropium) 3 ml Q4H PRN HHN Shortness of Breath 07/04/18 19:30 07/09/18 19:29 Aspirin (ASA) 81 mg DAILY GT 07/06/18 09:00 08/05/18 08:59 07/06/18 08:15 Dextrose 1,000 ml @ 100 mls/hr Q10H IV 07/06/18 10:00 08/05/18 09:59 07/06/18 10:30 Dextrose (Dextrose 50%) 25 ml Q30M PRN IV Hypoglycemia 07/04/18 22:45 08/03/18 22:44 Dextrose (Dextrose 50%) 50 ml Q30M PRN IV Hypoglycemia 07/04/18 22:45 08/03/18 22:44 Heparin Sodium (Porcine) (Heparin 5000 units/ml) 5,000 units EVERY 12 HOURS SUBQ 07/04/18 21:00 08/03/18 20:59 07/05/18 20:14 Insulin Aspart (NovoLOG) EVERY 6 HOURS SUBQ 07/05/18 00:00 08/04/18 00:00 07/06/18 11:35 Insulin Detemir (Levemir) 15 units BID SUBQ 07/05/18 09:00 08/04/18 08:59 07/06/18 08:35 Lansoprazole (Prevacid) 30 mg DAILY GT 07/05/18 09:00 08/04/18 08:59 07/06/18 08:16 Levetiracetam (Keppra) 500 mg Q12HR GT 07/04/18 21:00 08/03/18 20:59 07/06/18 08:16 Piperacillin Sod/ Tazobactam Sod 3.375 gm/Sodium Chloride 110 ml @ 27.5 mls/hr EVERY 8 HOURS IVPB 07/04/18 22:00 07/09/18 21:59 07/06/18 13:45 Vancomycin HCl (Vanco rx to dose) 1 ea DAILY PRN MISC Per rx protocol 07/04/18 19:30 08/03/18 19:29 Vancomycin HCl/ Dextrose 250 ml @ 125 mls/hr Q24H IVPB 07/05/18 16:00 07/10/18 15:59 07/06/18 15:41 Sea Nieto MD Jul 06, 2018 17:57
[2018-07-06 20:00] VITALS: BP 124/78
--- NOTE | 2018-07-06 23:45 | Progress Note ---
CARDIOLOGY PROGRESS NOTE DATE: 07/06/2018 SUBJECTIVE: The patient remains on ventilator support, unresponsive at baseline. OBJECTIVE: VITAL SIGNS: Blood pressure 125/77, pulse 73, and respirations 16. Afebrile. HEENT: Thin secretions. LUNGS: Bilateral breath sounds. Few rhonchi. HEART: Regular rhythm and rate. Normal S1, S2. ABDOMEN: Soft. EXTREMITIES: Trace edema. Contractures of the lower extremities. LABORATORY DATA: White count down to 13.3, hemoglobin 12.7. Sodium 159, potassium 2.9, chloride 120, BUN 55, and creatinine 1.6. Magnesium 2.5. Troponin 0.082. Pro-natriuretic peptide 641. IMPRESSION: 1. Acute myocardial ischemia and possible non-ST elevation infarction. 2. Chronic diastolic congestive heart failure, improving. 3. Acute renal failure. 4. Severe dehydration. 5. Hypernatremia. 6. Hyperchloremia. 7. Hypokalemia. 8. Diabetes mellitus, out of control. 9. Ventilator-dependent respiratory failure. 10. Advanced dementia. PLAN: 1. Hypotonic IV fluids. 2. Insulin titration. 3. Potassium replacement. 4. Ventilator support. 5. DVT prophylaxis. 6. Continue anti-platelet therapy. Reji Quiroz JOB#: [id number] CC:
[2018-07-07] VITALS: BP 118/79
[2018-07-07 04:00] VITALS: BP 124/79
[2018-07-07] MEDS: Piperacillin/Tazobactam 3.375 GM in NS 110 ML IVPB SCH ×3 (05:28→21:00)
[2018-07-07 05:33] LABS: ALANINE AMINOTRANSFERASE 25 U/L (12-78); ALBUMIN/GLOBULIN RATIO 0.3 (1.0-2.7); ALKALINE PHOSPHATASE 66 U/L (46-116); ANION GAP 7 mmol/L (5-15); ASPARTATE AMINO TRANSFERASE 52 U/L (15-37); BILIRUBIN,TOTAL 0.6 MG/DL (0.2-1.0); BLOOD UREA NITROGEN 41 mg/dL (7-18); CALCIUM 8.8 MG/DL (8.5-10.1); CARBON DIOXIDE 29 MMOL/L (21-32); CHLORIDE 116 MMOL/L (98-107); CREATININE 1.3 MG/DL (0.55-1.30); POTASSIUM 3.4 MMOL/L (3.5-5.1); SODIUM 152 MMOL/L (136-145)
[2018-07-07] MEDS: NovoLOG Insulin Flexpen SUBQ SCH ×4 (05:36→23:30)
[2018-07-07 08:00] VITALS: BP 134/80
[2018-07-07] MEDS: levETIRAcetam 500mg/5ml Liquid GT SCH ×3 (09:00→20:59)
[2018-07-07] MEDS: Levemir Flexpen SUBQ SCH ×2 (10:42→17:36)
[2018-07-07] MEDS: Heparin 5000 units/ml inj SUBQ SCH ×2 (10:44→21:01)
[2018-07-07] MEDS ORDERED: D5 1/2NS 1000ml IV ONE (10:50)
[2018-07-07] MEDS ORDERED: NS 275ml ONE (10:50)
--- NOTE | 2018-07-07 12:05 | General Progress Note ---
Assessment/Plan Problem List: (1) Hyperglycemia ICD Codes: R73.9 - Hyperglycemia, unspecified SNOMED: 35655660 (2) Pleural effusion ICD Codes: J90 - Pleural effusion, not elsewhere classified SNOMED: 40302156 (3) Sepsis ICD Codes: A41.9 - Sepsis, unspecified organism SNOMED: 28208965 (4) UTI (urinary tract infection) ICD Codes: N39.0 - Urinary tract infection, site not specified SNOMED: 86289634 (5) Tracheostomy dependence ICD Codes: Z93.0 - Tracheostomy status SNOMED: 116578039, 967115267 (6) Elevated troponin I level ICD Codes: R74.8 - Abnormal levels of other serum enzymes SNOMED: 938622910 Status: stable, progressing Assessment/Plan ivf- adjusted iv abx gt feeds sz rx follow up cultures monitor labs check abd us Subjective ROS Limited/Unobtainable: No Constitutional: Reports: malaise, weakness HEENT: Reports: no symptoms Cardiovascular: Reports: no symptoms Respiratory: Reports: shortness of breath Gastrointestinal/Abdominal: Reports: abdomen distended Genitourinary: Reports: no symptoms Neurologic/Psychiatric: Reports: pre-existing deficit, seizure Endocrine: Reports: no symptoms Hematologic/Lymphatic: Reports: anemia Allergies: Coded Allergies: No Known Allergies (Unverified , 07/04/18) All Systems: reviewed and negative except above Subjective no events. the same Na level remains high. no fever or chills. Objective Last 24 Hour Vital Signs Date Time Temp Pulse Resp B/P (MAP) Pulse Ox O2 Delivery O2 Flow Rate FiO2 07/07/18 10:41 75 16 36 07/07/18 08:31 70 16 36 07/07/18 08:00 36 07/07/18 08:00 98.3 72 16 134/80 (98) 100 07/07/18 08:00 70 07/07/18 08:00 Mechanical Ventilator 07/07/18 07:19 71 15 36 07/07/18 05:05 73 16 36 07/07/18 04:00 98.2 80 18 124/79 (94) 100 07/07/18 04:00 Mechanical Ventilator 07/07/18 04:00 72 07/07/18 04:00 36 07/07/18 02:50 74 16 36 07/07/18 00:50 72 16 36 07/07/18 00:00 98.1 82 16 118/79 (92) 100 07/07/18 00:00 75 07/07/18 00:00 Mechanical Ventilator 07/07/18 00:00 36 07/06/18 22:46 82 16 36 07/06/18 21:24 85 16 36 07/06/18 20:00 97.8 90 18 124/78 (93) 100 07/06/18 20:00 86 07/06/18 20:00 Mechanical Ventilator 07/06/18 20:00 36 07/06/18 18:40 89 16 36 07/06/18 16:39 79 16 36 07/06/18 16:00 Mechanical Ventilator 07/06/18 16:00 36 07/06/18 15:42 97.9 84 16 113/72 (86) 100 07/06/18 15:29 80 07/06/18 14:37 80 16 36 07/06/18 13:14 82 07/06/18 12:59 90 16 36 07/06/18 12:00 36 07/06/18 12:00 Mechanical Ventilator Intake and Output 07/06/18 07/07/18 18:59 06:59 Intake Total 1899.5 ml 1729.5 ml Output Total 450 ml 475 ml Balance 1449.5 ml 1254.5 ml Intake Free Water 300 ml 300 ml IV Total 1269.5 ml 1249.5 ml Tube Feeding 330 ml 180 ml Output Urine Total 450 ml 475 ml # Bowel Movements 1 Laboratory Tests 07/07/18 04:00: Sodium Level 152H, Potassium Level 3.4L, Chloride Level 116H, Carbon Dioxide Level 29, Anion Gap 7, Blood Urea Nitrogen 41H, Creatinine 1.3, Estimat Glomerular Filtration Rate , Glucose Level 334H, Calcium Level 8.8, Total Bilirubin 0.6, Aspartate Amino Transf (AST/SGOT) 52H, Alanine Aminotransferase ( ALT/SGPT) 25, Alkaline Phosphatase 66, Total Protein 8.0, Albumin 2.0L, Globulin 6.0, Albumin/Globulin Ratio 0.3L Height (Feet): 5 Height (Inches): 11.00 Weight (Pounds): 200 General Appearance: WD/WN, alert Neck: supple Cardiovascular: normal rate Respiratory/Chest: chest wall non-tender, lungs clear, normal breath sounds Abdomen: normal bowel sounds, non tender, soft Edema: no edema noted Arm (L), no edema noted Arm (R), no edema noted Leg (L), no edema noted Leg (R), no edema noted Pedal (L), no edema noted Pedal (R), no edema noted Generalized Neurologic: disoriented, unresponsive, aphasia Chano Galeana MD Jul 07, 2018 12:05
[2018-07-07 12:19] VITALS: BP 152/86
[2018-07-07] MEDS: Aspirin Baby 81mg GT SCH (12:31)
[2018-07-07 16:00] VITALS: BP 147/86
[2018-07-07] MEDS: Vancomycin 1.5 GM/D5W 250ML IVPB SCH (17:35)
--- NOTE | 2018-07-07 17:48 | Pulmonology Progress Note ---
Assessment/Plan Assessment/Plan PULMONARY CONSULTATION NOTE HISTORY OF PRESENT ILLNESS: The patient is an unfortunate 73-year-old male. He has a history of anoxic encephalopathy, stroke, and seizure disorder. He has chronic respiratory failure and is now vent dependent, has a history of COPD, CAD, hypertension and cirrhosis. He was transferred from a care home facility with complaints of abnormal laboratories. The patient was noted to have routine laboratories that showed worsening renal failure, leukocytosis, low potassium. On evaluation in the emergency room, the abnormal laboratories are verified and repeated. The patient was noted to have evidence of pneumonia, urinary tract infection. Broad-spectrum antibiotics were instituted and the patient was cultured. He is now admitted for further evaluation and care. He is nonverbal at baseline. He is unable to provide any history. PAST MEDICAL HISTORY: As above. PAST SURGICAL HISTORY: Includes a history of G-tube and tracheostomy. CURRENT MEDICATIONS: Reconciled and reviewed. ALLERGIES: None. FAMILY HISTORY: Unknown. SOCIAL HISTORY: There is no known history of tobacco, ethanol, or drugs. REVIEW OF SYSTEMS: From the patient is unobtainable as he is nonverbal at baseline. PHYSICAL EXAMINATION: VITAL SIGNS: Temperature 97.5, pulse 96, respirations 20, and blood pressure 112/70. GENERAL: The patient is a chronic ill-appearing male, in no apparent distress. He is nonverbal. NECK: Supple. Trach site was midline and clean. HEART: Regular rate and rhythm. LUNGS: Clear. ABDOMEN: Soft and nontender. Slightly distended. EXTREMITIES: No clubbing, cyanosis, or edema. LABORATORY AND DIAGNOSTIC DATA: Laboratories showed a sodium of 159, potassium 2.4, chloride 117, bicarb 27, BUN 54, creatinine 1.5. Bilirubin of 1.1. Troponin 0.134. Lactic acid level was 3. Natriuretic peptide level was 1000. Urine showed 5 to 10 wbc's. Chest x-ray suspected left basal infiltrate versus atelectasis. ASSESSMENT: This is an unfortunate male with multiple medical problems admitted with complaints of sepsis secondary to pneumonia and urinary tract infection. PROBLEM LIST: 1. Sepsis. 2. Pneumonia, COPD 3. Hypernatremia and dehydration. 4. Toxic metabolic encephalopathy. 5. Seizure disorder. 6. Acute renal failure. 7. Functional quadriplegia. 8. Cirrhosis. 9. CAD PLAN: IV hydration with hypotonic fluids. IV antibiotics. Continue current ventilator settings. We will monitor laboratories closely. Continue vent support. Respiratory treatments. The patient's status is currently guarded. Subjective ROS Limited/Unobtainable: Yes Allergies: Coded Allergies: No Known Allergies (Unverified , 07/04/18) Objective Last 24 Hour Vital Signs Date Time Temp Pulse Resp B/P (MAP) Pulse Ox O2 Delivery O2 Flow Rate FiO2 07/07/18 16:49 76 16 36 07/07/18 16:00 36 07/07/18 15:28 82 16 36 07/07/18 12:35 80 16 36 07/07/18 12:19 98.6 78 16 152/86 (108) 100 07/07/18 12:18 Mechanical Ventilator 07/07/18 12:18 36 07/07/18 12:00 77 07/07/18 10:41 75 16 36 07/07/18 08:31 70 16 36 07/07/18 08:00 36 07/07/18 08:00 98.3 72 16 134/80 (98) 100 07/07/18 08:00 70 07/07/18 08:00 Mechanical Ventilator 07/07/18 07:19 71 15 36 07/07/18 05:05 73 16 36 07/07/18 04:00 98.2 80 18 124/79 (94) 100 07/07/18 04:00 Mechanical Ventilator 07/07/18 04:00 72 07/07/18 04:00 36 07/07/18 02:50 74 16 36 07/07/18 00:50 72 16 36 07/07/18 00:00 98.1 82 16 118/79 (92) 100 07/07/18 00:00 75 07/07/18 00:00 Mechanical Ventilator 07/07/18 00:00 36 07/06/18 22:46 82 16 36 07/06/18 21:24 85 16 36 07/06/18 20:00 97.8 90 18 124/78 (93) 100 07/06/18 20:00 86 07/06/18 20:00 Mechanical Ventilator 07/06/18 20:00 36 07/06/18 18:40 89 16 36 Intake and Output 07/06/18 07/07/18 18:59 06:59 Intake Total 1899.5 ml 1729.5 ml Output Total 450 ml 475 ml Balance 1449.5 ml 1254.5 ml Intake Free Water 300 ml 300 ml IV Total 1269.5 ml 1249.5 ml Tube Feeding 330 ml 180 ml Output Urine Total 450 ml 475 ml # Bowel Movements 1 Laboratory Tests 07/07/18 04:00: Sodium Level 152H, Potassium Level 3.4L, Chloride Level 116H, Carbon Dioxide Level 29, Anion Gap 7, Blood Urea Nitrogen 41H, Creatinine 1.3, Estimat Glomerular Filtration Rate , Glucose Level 334H, Calcium Level 8.8, Total Bilirubin 0.6, Aspartate Amino Transf (AST/SGOT) 52H, Alanine Aminotransferase ( ALT/SGPT) 25, Alkaline Phosphatase 66, Total Protein 8.0, Albumin 2.0L, Globulin 6.0, Albumin/Globulin Ratio 0.3L 07/07/18 15:10: Random Vancomycin Level 15.4 Current Medications Medications (Trade) Dose Ordered Sig/Derrick Route PRN Reason Start Time Stop Time Status Last Admin Dose Admin Acetaminophen (Tylenol) 650 mg Q4H PRN GT Mild Pain/Temp > 100.5 07/04/18 19:42 08/03/18 19:40 Albuterol/ Ipratropium (Albuterol/ Ipratropium) 3 ml Q4H PRN HHN Shortness of Breath 07/04/18 19:30 07/09/18 19:29 Aspirin (ASA) 81 mg DAILY GT 07/06/18 09:00 08/05/18 08:59 07/07/18 12:31 Dextrose 1,000 ml @ 125 mls/hr Q8H IV 07/06/18 23:30 08/05/18 23:29 07/07/18 13:51 Dextrose (Dextrose 50%) 25 ml Q30M PRN IV Hypoglycemia 07/04/18 22:45 08/03/18 22:44 Dextrose (Dextrose 50%) 50 ml Q30M PRN IV Hypoglycemia 07/04/18 22:45 08/03/18 22:44 Heparin Sodium (Porcine) (Heparin 5000 units/ml) 5,000 units EVERY 12 HOURS SUBQ 07/04/18 21:00 08/03/18 20:59 07/07/18 10:44 Insulin Aspart (NovoLOG) EVERY 6 HOURS SUBQ 07/05/18 00:00 08/04/18 00:00 07/07/18 17:36 Insulin Detemir (Levemir) 15 units BID SUBQ 07/05/18 09:00 08/04/18 08:59 07/07/18 17:36 Lansoprazole (Prevacid) 30 mg DAILY GT 07/05/18 09:00 08/04/18 08:59 07/07/18 12:32 Levetiracetam (Keppra) 500 mg Q12HR GT 07/04/18 21:00 08/03/18 20:59 07/07/18 12:33 Piperacillin Sod/ Tazobactam Sod 3.375 gm/Sodium Chloride 110 ml @ 27.5 mls/hr EVERY 8 HOURS IVPB 07/04/18 22:00 07/09/18 21:59 07/07/18 13:50 Vancomycin HCl (Vanco rx to dose) 1 ea DAILY PRN MISC Per rx protocol 07/04/18 19:30 08/03/18 19:29 Vancomycin HCl/ Dextrose 250 ml @ 125 mls/hr Q24H IVPB 07/05/18 16:00 07/10/18 15:59 07/07/18 17:35 Sea Nieto MD Jul 07, 2018 17:48
[2018-07-07 20:00] VITALS: BP 150/78
--- NOTE | 2018-07-07 23:15 | Progress Note ---
DATE: 07/07/2018 CARDIOLOGY PROGRESS NOTE SUBJECTIVE: The patient remains noncommunicative. He is on hypotonic IV fluids. OBJECTIVE: VITAL SIGNS: Blood pressure 134/80, pulse 72, respiratory rate 16. He is afebrile. He is on ventilator support via tracheostomy. Monitored rhythm sinus with atrial ectopy. LUNGS: Thin trach secretions. Bilateral breath sounds. CARDIAC: Regular rhythm and rate. Normal S1 and S2. ABDOMEN: Soft. G-tube intact. EXTREMITIES: No edema. Contractures noted. LABORATORY DATA: Urine culture is E. coli. White count 13.3, hemoglobin 12.7. Sodium 152, potassium 3.4, chloride 116, bicarb 29, BUN 41, creatinine 1.3, glucose 334. Albumin 2.0. IMPRESSION: 1. Severe dehydration. 2. Hypernatremia. 3. Hypokalemia. 4. Hyperchloremia. 5. Acute on chronic kidney injury. 6. Type 2 diabetes mellitus with uncontrolled glucose. 7. Acute myocardial ischemia and possible [id number] myocardial infarction. 8. Severe protein-calorie malnutrition. 9. Chronic diastolic congestive heart failure. 10. Cerebrovascular disease with dementia. 11. Ventilator-dependent respiratory failure. 12. Urinary tract infection with sepsis due to E. Coli. PLAN: 1. Continue hypotonic hydration. 2. Advance insulin coverage. 3. Antiplatelet therapy. 4. Protein supplement by feeding tube. 5. DVT prophylaxis. 6. Antimicrobials. 7. Conservative management in this clinical setting. Sea [place] M.D. DR: AIDEN/JARET JOB#: [id number] CC:
[2018-07-08] VITALS: BP 149/89
[2018-07-08 04:00] VITALS: BP 152/99
[2018-07-08] MEDS: Piperacillin/Tazobactam 3.375 GM in NS 110 ML IVPB SCH ×3 (06:00→22:01)
[2018-07-08] MEDS: NovoLOG Insulin Flexpen SUBQ SCH ×4 (06:00→23:31)
[2018-07-08 06:12] LABS: HEMATOCRIT 27.7 % (42.0-52.0); HEMOGLOBIN 7.2 G/DL (14.2-18.0); MEAN CORPUSCULAR VOLUME 105 FL (80-99); PLATELET COUNT 72 K/UL (150-450); RED BLOOD COUNT 2.65 M/UL (4.70-6.10); WHITE BLOOD COUNT 4.5 K/UL (4.8-10.8)
--- NOTE | 2018-07-08 07:53 | General Progress Note ---
Assessment/Plan Problem List: (1) Hyperglycemia ICD Codes: R73.9 - Hyperglycemia, unspecified SNOMED: 06124857 (2) Pleural effusion ICD Codes: J90 - Pleural effusion, not elsewhere classified SNOMED: 33117390 (3) Sepsis ICD Codes: A41.9 - Sepsis, unspecified organism SNOMED: 43632641 (4) UTI (urinary tract infection) ICD Codes: N39.0 - Urinary tract infection, site not specified SNOMED: 84155417 (5) Tracheostomy dependence ICD Codes: Z93.0 - Tracheostomy status SNOMED: 543681331, 210626526 (6) Elevated troponin I level ICD Codes: R74.8 - Abnormal levels of other serum enzymes SNOMED: 368401028 Status: stable, progressing Assessment/Plan ivf- can dc if sodium better iv abx per id gt feeds sz rx follow up cultures monitor labs check abd us- hx of ascites. eeg for right sided facial twitching. Subjective ROS Limited/Unobtainable: Yes Constitutional: Reports: malaise, weakness HEENT: Reports: no symptoms Cardiovascular: Reports: no symptoms Respiratory: Reports: no symptoms Gastrointestinal/Abdominal: Reports: difficulty swallowing Genitourinary: Reports: no symptoms Neurologic/Psychiatric: Reports: pre-existing deficit, seizure Endocrine: Reports: no symptoms Hematologic/Lymphatic: Reports: no symptoms Allergies: Coded Allergies: No Known Allergies (Unverified , 07/04/18) All Systems: reviewed and negative except above Subjective no events. BS high. On d5w for hypernatremia. labs pending for today Objective Last 24 Hour Vital Signs Date Time Temp Pulse Resp B/P (MAP) Pulse Ox O2 Delivery O2 Flow Rate FiO2 07/08/18 06:53 91 17 36 07/08/18 05:20 86 16 36 07/08/18 04:00 36 07/08/18 04:00 98.8 83 16 152/99 (116) 99 07/08/18 04:00 Mechanical Ventilator 07/08/18 03:21 83 07/08/18 02:35 85 18 36 07/08/18 01:20 79 16 36 07/08/18 00:22 81 07/08/18 00:00 Mechanical Ventilator 07/08/18 00:00 98.6 80 16 149/89 (109) 100 07/07/18 23:21 81 16 36 07/07/18 21:21 82 16 36 07/07/18 20:13 81 16 36 07/07/18 20:00 Mechanical Ventilator 07/07/18 20:00 98.7 82 16 150/78 (102) 100 07/07/18 20:00 36 07/07/18 19:27 79 07/07/18 16:49 76 16 36 07/07/18 16:00 74 07/07/18 16:00 Mechanical Ventilator 07/07/18 16:00 36 07/07/18 16:00 99.0 79 16 147/86 (106) 99 07/07/18 15:28 82 16 36 07/07/18 12:35 80 16 36 07/07/18 12:19 98.6 78 16 152/86 (108) 100 07/07/18 12:18 Mechanical Ventilator 07/07/18 12:18 36 07/07/18 12:00 77 07/07/18 10:41 75 16 36 07/07/18 08:31 70 16 36 07/07/18 08:00 36 07/07/18 08:00 98.3 72 16 134/80 (98) 100 07/07/18 08:00 70 07/07/18 08:00 Mechanical Ventilator Intake and Output 07/07/18 07/08/18 19:00 07:00 Intake Total 935.0 ml 1865.0 ml Output Total 376 ml 600 ml Balance 559.0 ml 1265.0 ml Intake Free Water 170 ml 180 ml IV Total 735.0 ml 1325.0 ml Tube Feeding 30 ml 360 ml Output Urine Total 375 ml 600 ml Stool Total 1 ml # Bowel Movements 2 Laboratory Tests 07/07/18 15:10: Random Vancomycin Level 15.4 07/08/18 04:00: White Blood Count 4.5L, Red Blood Count 2.65L, Hemoglobin 7.2L, Hematocrit 27.7L , Mean Corpuscular Volume 105H, Mean Corpuscular Hemoglobin 27.4, Mean Corpuscular Hemoglobin Concent 26.1L, Red Cell Distribution Width 17.0H, Platelet Count 72L, Mean Platelet Volume 10.1, Neutrophils (%) (Auto) , Lymphocytes (%) (Auto) , Monocytes (%) (Auto) , Eosinophils (%) (Auto) , Basophils (%) (Auto) , Neutrophils % (Manual) [Pending], Lymphocytes % (Manual) [Pending], Platelet Estimate [Pending], Platelet Morphology [Pending], Troponin I 0.038, Pro-B-Type Natriuretic Peptide 290H Height (Feet): 5 Height (Inches): 11.00 Weight (Pounds): 200 Objective General Appearance: WD/WN, alert Neck: supple Cardiovascular: normal rate Respiratory/Chest: chest wall non-tender, lungs clear, normal breath sounds Abdomen: normal bowel sounds, non tender, soft Edema: no edema noted Arm (L), no edema noted Arm (R), no edema noted Leg (L), no edema noted Leg (R), no edema noted Pedal (L), no edema noted Pedal (R), no edema noted Generalized Neurologic: disoriented, unresponsive, aphasia Chano Galeana MD Jul 08, 2018 07:53
[2018-07-08 08:00] VITALS: BP 141/82
[2018-07-08 08:21] LABS: ANION GAP 7 mmol/L (5-15); BLOOD UREA NITROGEN 22 mg/dL (7-18); CARBON DIOXIDE 26 MMOL/L (21-32); CHLORIDE 108 MMOL/L (98-107); CREATININE 1.2 MG/DL (0.55-1.30); POTASSIUM 3.4 MMOL/L (3.5-5.1); SODIUM 141 MMOL/L (136-145)
--- NOTE | 2018-07-08 08:21 | Pulmonology Progress Note ---
Assessment/Plan Assessment/Plan 1. Sepsis. 2. Pneumonia, 3. acute renal failure 4. Toxic metabolic encephalopathy. 5. Seizure disorder. 6. electrolyte imbalance 7. Functional quadriplegia. 8. Cirrhosis. 9. CAD 10. anoxia PLAN vent support antibiotics monitor cultures monitor imaging feeds skin care position change close follow up stabilize and dc to snf impression, plan, and exam edited and reviewed in detail care discussed with RN Subjective ROS Limited/Unobtainable: Yes Allergies: Coded Allergies: No Known Allergies (Unverified , 07/04/18) Subjective on vent reduced LOC Objective Last 24 Hour Vital Signs Date Time Temp Pulse Resp B/P (MAP) Pulse Ox O2 Delivery O2 Flow Rate FiO2 07/08/18 06:53 91 17 36 07/08/18 05:20 86 16 36 07/08/18 04:00 36 07/08/18 04:00 98.8 83 16 152/99 (116) 99 07/08/18 04:00 Mechanical Ventilator 07/08/18 03:21 83 07/08/18 02:35 85 18 36 07/08/18 01:20 79 16 36 07/08/18 00:22 81 07/08/18 00:00 Mechanical Ventilator 07/08/18 00:00 98.6 80 16 149/89 (109) 100 07/07/18 23:21 81 16 36 07/07/18 21:21 82 16 36 07/07/18 20:13 81 16 36 07/07/18 20:00 Mechanical Ventilator 07/07/18 20:00 98.7 82 16 150/78 (102) 100 07/07/18 20:00 36 07/07/18 19:27 79 07/07/18 16:49 76 16 36 07/07/18 16:00 74 07/07/18 16:00 Mechanical Ventilator 07/07/18 16:00 36 07/07/18 16:00 99.0 79 16 147/86 (106) 99 07/07/18 15:28 82 16 36 07/07/18 12:35 80 16 36 07/07/18 12:19 98.6 78 16 152/86 (108) 100 07/07/18 12:18 Mechanical Ventilator 07/07/18 12:18 36 07/07/18 12:00 77 07/07/18 10:41 75 16 36 07/07/18 08:31 70 16 36 Intake and Output 07/07/18 07/08/18 19:00 07:00 Intake Total 935.0 ml 1865.0 ml Output Total 376 ml 600 ml Balance 559.0 ml 1265.0 ml Intake Free Water 170 ml 180 ml IV Total 735.0 ml 1325.0 ml Tube Feeding 30 ml 360 ml Output Urine Total 375 ml 600 ml Stool Total 1 ml # Bowel Movements 2 Objective WDWN poor LOC trach in place reduced breath sounds bilaterally with some rhonchi [id number] without MRG NABS nontender no HSM; GT no CC noted edema nonfocal, withdrawn Laboratory Tests 07/07/18 15:10: Random Vancomycin Level 15.4 07/08/18 04:00: White Blood Count 4.5L, Red Blood Count 2.65L, Hemoglobin 7.2L, Hematocrit 27.7L , Mean Corpuscular Volume 105H, Mean Corpuscular Hemoglobin 27.4, Mean Corpuscular Hemoglobin Concent 26.1L, Red Cell Distribution Width 17.0H, Platelet Count 72L, Mean Platelet Volume 10.1, Neutrophils (%) (Auto) , Lymphocytes (%) (Auto) , Monocytes (%) (Auto) , Eosinophils (%) (Auto) , Basophils (%) (Auto) , Neutrophils % (Manual) [Pending], Lymphocytes % (Manual) [Pending], Platelet Estimate [Pending], Platelet Morphology [Pending], Troponin I 0.038, Pro-B-Type Natriuretic Peptide 290H 07/08/18 07:45: White Blood Count [Pending], Red Blood Count [Pending], Hemoglobin [Pending], Hematocrit [Pending], Mean Corpuscular Volume [Pending], Mean Corpuscular Hemoglobin [Pending], Mean Corpuscular Hemoglobin Concent [Pending], Red Cell Distribution Width [Pending], Platelet Count [Pending], Mean Platelet Volume [ Pending], Neutrophils (%) (Auto) [Pending], Lymphocytes (%) (Auto) [Pending], Monocytes (%) (Auto) [Pending], Eosinophils (%) (Auto) [Pending], Basophils (%) (Auto) [Pending], Sodium Level [Pending], Potassium Level [Pending], Chloride Level [Pending], Carbon Dioxide Level [Pending], Blood Urea Nitrogen [Pending], Creatinine [Pending], Estimat Glomerular Filtration Rate [Pending], Glucose Level [Pending], Calcium Level [Pending], Total Bilirubin [Pending], Aspartate Amino Transf (AST/SGOT) [Pending], Alanine Aminotransferase (ALT/SGPT) [Pending] , Alkaline Phosphatase [Pending], Total Protein [Pending], Albumin [Pending], Globulin [Pending] Current Medications Medications (Trade) Dose Ordered Sig/Drerick Route PRN Reason Start Time Stop Time Status Last Admin Dose Admin Acetaminophen (Tylenol) 650 mg Q4H PRN GT Mild Pain/Temp > 100.5 07/04/18 19:42 08/03/18 19:40 Albuterol/ Ipratropium (Albuterol/ Ipratropium) 3 ml Q4H PRN HHN Shortness of Breath 07/04/18 19:30 07/09/18 19:29 Aspirin (ASA) 81 mg DAILY GT 07/06/18 09:00 08/05/18 08:59 07/07/18 12:31 Dextrose 1,000 ml @ 125 mls/hr Q8H IV 07/06/18 23:30 08/05/18 23:29 07/08/18 07:57 Dextrose (Dextrose 50%) 25 ml Q30M PRN IV Hypoglycemia 07/04/18 22:45 08/03/18 22:44 Dextrose (Dextrose 50%) 50 ml Q30M PRN IV Hypoglycemia 07/04/18 22:45 08/03/18 22:44 Heparin Sodium (Porcine) (Heparin 5000 units/ml) 5,000 units EVERY 12 HOURS SUBQ 07/04/18 21:00 08/03/18 20:59 07/07/18 21:01 Insulin Aspart (NovoLOG) EVERY 6 HOURS SUBQ 07/05/18 00:00 08/04/18 00:00 07/08/18 06:00 Insulin Detemir (Levemir) 15 units BID SUBQ 07/05/18 09:00 08/04/18 08:59 07/07/18 17:36 Lansoprazole (Prevacid) 30 mg DAILY GT 07/05/18 09:00 08/04/18 08:59 07/07/18 12:32 Levetiracetam (Keppra) 500 mg Q12HR GT 07/04/18 21:00 08/03/18 20:59 07/07/18 20:59 Piperacillin Sod/ Tazobactam Sod 3.375 gm/Sodium Chloride 110 ml @ 27.5 mls/hr EVERY 8 HOURS IVPB 07/04/18 22:00 07/09/18 21:59 07/08/18 06:00 Vancomycin HCl (Vanco rx to dose) 1 ea DAILY PRN MISC Per rx protocol 07/04/18 19:30 08/03/18 19:29 Vancomycin HCl/ Dextrose 250 ml @ 125 mls/hr Q24H IVPB 07/05/18 16:00 07/10/18 15:59 07/07/18 17:35 Bakari Montanez MD Jul 08, 2018 08:21
[2018-07-08 08:26] LABS: ALANINE AMINOTRANSFERASE 25 U/L (12-78); ALBUMIN 1.6 G/DL (3.4-5.0); ALBUMIN/GLOBULIN RATIO 0.3 (1.0-2.7); ALKALINE PHOSPHATASE 65 U/L (46-116); ASPARTATE AMINO TRANSFERASE 56 U/L (15-37); BILIRUBIN,TOTAL 0.6 MG/DL (0.2-1.0)
[2018-07-08] MEDS: Heparin 5000 units/ml inj SUBQ SCH ×2 (09:00→21:00)
[2018-07-08] MEDS: levETIRAcetam 500mg/5ml Liquid GT SCH ×2 (09:22→22:01)
[2018-07-08] MEDS: Aspirin Baby 81mg GT SCH (09:25)
[2018-07-08] MEDS: Levemir Flexpen SUBQ SCH ×2 (09:38→18:38)
[2018-07-08 10:13] LABS: BASOPHILS % (AUTO) 0.8 % (0.0-2.0); EOSINOPHILS % (AUTO) 4.1 % (0.0-3.0); HEMATOCRIT 38.8 % (42.0-52.0); HEMOGLOBIN 12.3 G/DL (14.2-18.0); LYMPHOCYTES % (AUTO) 30.9 % (20.0-45.0); MEAN CORPUSCULAR VOLUME 85 FL (80-99); MONOCYTES % (AUTO) 9.6 % (1.0-10.0); NEUTROPHILS % (AUTO) 54.6 % (45.0-75.0); PLATELET COUNT 128 K/UL (150-450); RED BLOOD COUNT 4.55 M/UL (4.70-6.10); RED CELL DISTRIBUTION WIDTH 15.1 % (11.6-14.8); WHITE BLOOD COUNT 6.5 K/UL (4.8-10.8)
--- NOTE | 2018-07-08 11:59 | Diagnostic Imaging Report ---
Indication:Abdominal pain Technique: Grayscale and duplex Doppler imaging of the abdomen performed. Comparison: None Findings: Study is limited by bowel gas and body habitus. The liver is grossly unremarkable. The gallbladder is grossly unremarkable. The pancreas and aorta are not well seen. Both kidneys appear grossly unremarkable. The spleen is not visualized. There is no obvious biliary ductal dilatation identified. Doppler evaluation of the main portal vein shows patency. There is no ascites. No hydronephrosis seen. CBD is 4.7 mm. Impression: No acute findings. Limited evaluation
[2018-07-08 12:00] VITALS: BP 135/90
[2018-07-08] MEDS ORDERED: Tubing IV Secondary IV ONE (14:37)
[2018-07-08] MEDS ORDERED: NS 275ml ONE (14:37)
[2018-07-08 16:00] VITALS: BP 110/80
[2018-07-08] MEDS: Vancomycin 1.5 GM/D5W 250ML IVPB SCH (16:49)
[2018-07-08 20:00] VITALS: BP 139/85
[2018-07-09] VITALS: BP 139/81
[2018-07-09 04:00] VITALS: BP 155/77
[2018-07-09] MEDS: Piperacillin/Tazobactam 3.375 GM in NS 110 ML IVPB SCH (05:29)
[2018-07-09] MEDS: NovoLOG Insulin Flexpen SUBQ SCH ×4 (05:30→23:43)
[2018-07-09 06:19] LABS: ALANINE AMINOTRANSFERASE 32 U/L (12-78); ALBUMIN 1.7 G/DL (3.4-5.0); ALBUMIN/GLOBULIN RATIO 0.3 (1.0-2.7); ALKALINE PHOSPHATASE 68 U/L (46-116); ANION GAP 10 mmol/L (5-15); ASPARTATE AMINO TRANSFERASE 50 U/L (15-37); BILIRUBIN,TOTAL 0.5 MG/DL (0.2-1.0); BLOOD UREA NITROGEN 20 mg/dL (7-18); CALCIUM 7.9 MG/DL (8.5-10.1); CARBON DIOXIDE 26 MMOL/L (21-32); CHLORIDE 110 MMOL/L (98-107); CREATININE 1.2 MG/DL (0.55-1.30); POTASSIUM 3.6 MMOL/L (3.5-5.1); SODIUM 146 MMOL/L (136-145)
[2018-07-09 08:00] VITALS: BP 144/74
--- NOTE | 2018-07-09 08:06 | General Progress Note ---
Assessment/Plan Problem List: (1) Hyperglycemia ICD Codes: R73.9 - Hyperglycemia, unspecified SNOMED: 74838698 (2) Pleural effusion ICD Codes: J90 - Pleural effusion, not elsewhere classified SNOMED: 69624383 (3) Sepsis ICD Codes: A41.9 - Sepsis, unspecified organism SNOMED: 32416494 (4) UTI (urinary tract infection) ICD Codes: N39.0 - Urinary tract infection, site not specified SNOMED: 23507455 (5) Tracheostomy dependence ICD Codes: Z93.0 - Tracheostomy status SNOMED: 499320176, 983166322 (6) Elevated troponin I level ICD Codes: R74.8 - Abnormal levels of other serum enzymes SNOMED: 144193435 Status: stable, progressing Assessment/Plan dc ivf iv abx per id(called) gt feeds sz rx check eeg follow up cultures monitor labs no ascites on abd herberth eeg for right sided facial twitching. Subjective ROS Limited/Unobtainable: Yes Constitutional: Reports: malaise, weakness HEENT: Reports: no symptoms Cardiovascular: Reports: no symptoms Respiratory: Reports: shortness of breath Gastrointestinal/Abdominal: Reports: abdomen distended, difficulty swallowing Genitourinary: Reports: no symptoms Neurologic/Psychiatric: Reports: pre-existing deficit, seizure Endocrine: Reports: no symptoms Hematologic/Lymphatic: Reports: anemia Allergies: Coded Allergies: No Known Allergies (Unverified , 07/04/18) All Systems: reviewed and negative except above Subjective no events. BS high. On d5w for hypernatremia. labs better. ucx noted. no szs. ? twitching left lip Objective Last 24 Hour Vital Signs Date Time Temp Pulse Resp B/P (MAP) Pulse Ox O2 Delivery O2 Flow Rate FiO2 07/09/18 06:46 102 16 30 07/09/18 04:49 101 17 30 07/09/18 04:00 30 07/09/18 04:00 Mechanical Ventilator 07/09/18 04:00 99.1 95 16 155/77 (103) 99 07/09/18 03:49 97 07/09/18 03:30 92 16 30 07/09/18 01:08 90 16 30 07/09/18 00:00 99.3 89 16 139/81 (100) 100 07/09/18 00:00 Mechanical Ventilator 07/08/18 23:30 90 16 30 07/08/18 23:23 88 07/08/18 21:12 94 17 30 07/08/18 20:00 Mechanical Ventilator 07/08/18 20:00 36 07/08/18 20:00 98.6 93 16 139/85 (103) 100 07/08/18 19:32 95 07/08/18 19:30 97 23 36 07/08/18 17:06 105 22 36 07/08/18 16:00 Mechanical Ventilator 07/08/18 16:00 100 07/08/18 16:00 98.2 103 20 110/80 (90) 100 07/08/18 16:00 36 07/08/18 15:30 95 16 36 07/08/18 12:50 97 17 36 07/08/18 12:00 98.2 94 18 135/90 (105) 100 07/08/18 12:00 Mechanical Ventilator 07/08/18 12:00 36 07/08/18 12:00 92 07/08/18 10:31 92 16 36 07/08/18 08:50 85 16 36 Intake and Output 07/08/18 07/09/18 19:00 07:00 Intake Total 980.0 ml 691.25 ml Output Total 900 ml 450 ml Balance 80.0 ml 241.25 ml Intake Free Water 260 ml 180 ml IV Total 360.0 ml 151.25 ml Tube Feeding 360 ml 360 ml Output Urine Total 900 ml 450 ml # Bowel Movements 2 Laboratory Tests 07/08/18 09:45: White Blood Count 6.5, Red Blood Count 4.55L, Hemoglobin 12.3#L, Hematocrit 38.8 #L, Mean Corpuscular Volume 85#, Mean Corpuscular Hemoglobin 26.9L, Mean Corpuscular Hemoglobin Concent 31.6L, Red Cell Distribution Width 15.1H, Platelet Count 128#L, Mean Platelet Volume 11.6H, Neutrophils (%) (Auto) 54.6, Lymphocytes (%) (Auto) 30.9, Monocytes (%) (Auto) 9.6, Eosinophils (%) (Auto) 4.1H, Basophils (%) (Auto) 0.8 07/09/18 05:24: Sodium Level 146H, Potassium Level 3.6, Chloride Level 110H, Carbon Dioxide Level 26, Anion Gap 10, Blood Urea Nitrogen 20H, Creatinine 1.2, Estimat Glomerular Filtration Rate , Glucose Level 324H, Calcium Level 7.9L, Total Bilirubin 0.5, Aspartate Amino Transf (AST/SGOT) 50H, Alanine Aminotransferase ( ALT/SGPT) 32, Alkaline Phosphatase 68, Total Protein 7.4, Albumin 1.7L, Globulin 5.7, Albumin/Globulin Ratio 0.3L Height (Feet): 5 Height (Inches): 11.00 Weight (Pounds): 200 Objective General Appearance: WD/WN, alert Neck: supple Cardiovascular: normal rate Respiratory/Chest: chest wall non-tender, lungs clear, normal breath sounds Abdomen: normal bowel sounds, non tender, soft Edema: no edema noted Arm (L), no edema noted Arm (R), no edema noted Leg (L), no edema noted Leg (R), no edema noted Pedal (L), no edema noted Pedal (R), no edema noted Generalized Neurologic: disoriented, unresponsive, aphasia Chano Galeana MD Jul 09, 2018 08:06
[2018-07-09] MEDS: Heparin 5000 units/ml inj SUBQ SCH ×2 (09:00→20:54)
[2018-07-09] MEDS: levETIRAcetam 500mg/5ml Liquid GT SCH ×2 (09:10→20:53)
[2018-07-09] MEDS: Aspirin Baby 81mg GT SCH (09:11)
[2018-07-09] MEDS: Levemir Flexpen SUBQ SCH ×2 (09:15→18:10)
[2018-07-09 12:00] VITALS: BP 135/68
--- NOTE | 2018-07-09 12:32 | Pulmonology Progress Note ---
Assessment/Plan Assessment/Plan 1. Sepsis. 2. Pneumonia, 3. acute renal failure 4. Toxic metabolic encephalopathy. 5. Seizure disorder. 6. electrolyte imbalance 7. Functional quadriplegia. 8. Cirrhosis. 9. CAD 10. anoxia PLAN vent support as is antibiotics reviewed monitor cultures monitor imaging for change feeds skin care position change close follow up stabilize and dc to snf adjust diabetic meds impression, plan, and exam edited and reviewed in detail care discussed with RN Subjective ROS Limited/Unobtainable: Yes Allergies: Coded Allergies: No Known Allergies (Unverified , 07/04/18) Subjective on vent reduced LOC sugars elevated Objective Last 24 Hour Vital Signs Date Time Temp Pulse Resp B/P (MAP) Pulse Ox O2 Delivery O2 Flow Rate FiO2 07/09/18 12:00 30 07/09/18 12:00 Mechanical Ventilator 07/09/18 09:20 97 16 30 07/09/18 08:00 99.0 103 15 144/74 (97) 100 07/09/18 08:00 Mechanical Ventilator 07/09/18 08:00 103 07/09/18 08:00 30 07/09/18 06:46 102 16 30 07/09/18 04:49 101 17 30 07/09/18 04:00 30 07/09/18 04:00 Mechanical Ventilator 07/09/18 04:00 99.1 95 16 155/77 (103) 99 07/09/18 03:49 97 07/09/18 03:30 92 16 30 07/09/18 01:08 90 16 30 07/09/18 00:00 99.3 89 16 139/81 (100) 100 07/09/18 00:00 Mechanical Ventilator 07/08/18 23:30 90 16 30 07/08/18 23:23 88 07/08/18 21:12 94 17 30 07/08/18 20:00 Mechanical Ventilator 07/08/18 20:00 36 07/08/18 20:00 98.6 93 16 139/85 (103) 100 07/08/18 19:32 95 07/08/18 19:30 97 23 36 07/08/18 17:06 105 22 36 07/08/18 16:00 Mechanical Ventilator 07/08/18 16:00 100 07/08/18 16:00 98.2 103 20 110/80 (90) 100 07/08/18 16:00 36 07/08/18 15:30 95 16 36 07/08/18 12:50 97 17 36 Intake and Output 07/08/18 07/09/18 19:00 07:00 Intake Total 980.0 ml 691.25 ml Output Total 900 ml 450 ml Balance 80.0 ml 241.25 ml Intake Free Water 260 ml 180 ml IV Total 360.0 ml 151.25 ml Tube Feeding 360 ml 360 ml Output Urine Total 900 ml 450 ml # Bowel Movements 2 Objective WDWN poor LOC trach in place reduced breath sounds bilaterally with some rhonchi [id number] without MRG NABS nontender no HSM; GT no CC noted edema nonfocal, withdrawn reviewed and edited Laboratory Tests 07/09/18 05:24: Sodium Level 146H, Potassium Level 3.6, Chloride Level 110H, Carbon Dioxide Level 26, Anion Gap 10, Blood Urea Nitrogen 20H, Creatinine 1.2, Estimat Glomerular Filtration Rate , Glucose Level 324H, Calcium Level 7.9L, Total Bilirubin 0.5, Aspartate Amino Transf (AST/SGOT) 50H, Alanine Aminotransferase ( ALT/SGPT) 32, Alkaline Phosphatase 68, Total Protein 7.4, Albumin 1.7L, Globulin 5.7, Albumin/Globulin Ratio 0.3L Current Medications Medications (Trade) Dose Ordered Sig/Derrick Route PRN Reason Start Time Stop Time Status Last Admin Dose Admin Acetaminophen (Tylenol) 650 mg Q4H PRN GT Mild Pain/Temp > 100.5 07/04/18 19:42 08/03/18 19:40 Albuterol/ Ipratropium (Albuterol/ Ipratropium) 3 ml Q4H PRN HHN Shortness of Breath 07/04/18 19:30 07/09/18 19:29 Aspirin (ASA) 81 mg DAILY GT 07/06/18 09:00 08/05/18 08:59 07/09/18 09:11 Ceftriaxone Sodium 1 gm/ Dextrose 55 ml @ 110 mls/hr Q24H IVPB 07/09/18 12:30 07/16/18 12:29 UNV Dextrose (Dextrose 50%) 25 ml Q30M PRN IV Hypoglycemia 07/04/18 22:45 08/03/18 22:44 Dextrose (Dextrose 50%) 50 ml Q30M PRN IV Hypoglycemia 07/04/18 22:45 08/03/18 22:44 Heparin Sodium (Porcine) (Heparin 5000 units/ml) 5,000 units EVERY 12 HOURS SUBQ 07/04/18 21:00 08/03/18 20:59 07/07/18 21:01 Insulin Aspart (NovoLOG) EVERY 6 HOURS SUBQ 07/05/18 00:00 08/04/18 00:00 07/09/18 05:30 Insulin Detemir (Levemir) 15 units BID SUBQ 07/05/18 09:00 08/04/18 08:59 07/09/18 09:15 Lansoprazole (Prevacid) 30 mg DAILY GT 07/05/18 09:00 08/04/18 08:59 07/09/18 09:11 Levetiracetam (Keppra) 500 mg Q12HR GT 07/04/18 21:00 08/03/18 20:59 07/09/18 09:10 Bakari Montanez MD Jul 09, 2018 12:32
[2018-07-09] MEDS: cefTRIAXone 1 GM in D5W 55 ML IVPB SCH (14:00)
[2018-07-09] MEDS ORDERED: Tubing IV Secondary IV ONE (15:16)
[2018-07-09] MEDS ORDERED: NS 275ml ONE (15:16)
[2018-07-09 16:00] VITALS: BP 129/69
--- NOTE | 2018-07-09 18:27 | Cardiology Report ---
APPROVED REPORT EKG Measurement Heart [id number] MD 118P33 [id number] Normal sinus rhythm Inferior infarct, age undetermined Abnormal ECG
--- NOTE | 2018-07-09 18:37 | Cardiology Report ---
APPROVED REPORT EKG Measurement Heart [id number] CO 128P44 [id number] Sinus tachycardia Inferior infarct, age undetermined Anterior infarct, age undetermined Abnormal ECG
[2018-07-09 20:00] VITALS: BP 128/89
--- NOTE | 2018-07-09 20:45 | Electroencephalogram ---
DATE OF PROCEDURE: 07/08/2018 REQUESTING PHYSICIAN: Chano Galeana M.D. READING PHYSICIAN: Obinna Corado M.D. PROCEDURE PERFORMED: Electroencephalogram. HISTORY: This EEG was performed on a 73-year-old gentleman with a history of multiple medical problems including sepsis, hyperglycemia, and an altered mental state. There is also questionable history of seizures as the patient is on Keppra. The purpose of this EEG was to evaluate the patient for the degree and type of cerebral dysfunction and to exclude ongoing ictal or interictal phenomena because he had constant tongue and jaw twitching. TECHNICAL NOTE: This EEG was performed on a [employer] with electrodes placed on the scalp according to the International 10-20 system. [id number] and ymsof-[id number] montages were used. The EEG was of technically mediocre quality due to the fact that the entire tracing was marred by continuous EMG and movement artifact from the patient's jaw twitching. OBSERVATIONS: In the poorly responsive state, the background activity consisted of 4-5 Hz theta with intermixed 2-2.5 Hz delta activity. As mentioned earlier, the entire tracing was marred by EMG and movement artifact. No definite focal abnormalities or epileptiform discharges were seen. IMPRESSION: This is an abnormal EEG characterized by slowing of the background in the 4-5 Hz theta and 2-2.5 Hz delta range in the poorly responsive state. COMMENT: This study is consistent with an encephalopathy of a moderate to severe degree. Obinna Corado M.D., M.S.P.H. DR: SPIKE JOB#: [id number] [facility]
[2018-07-10] VITALS: BP 144/86
--- NOTE | 2018-07-10 01:30 | Consultation ---
DATE OF CONSULTATION: 07/09/2018 INFECTIOUS DISEASE CONSULTATION This consult is for coverage of Dr. Guerrero. CONSULTING PHYSICIAN: Carlos Amaro M.D. PRIMARY ATTENDING PHYSICIAN: Chano Galeana M.D. REASON FOR CONSULT: UTI, pneumonia. HISTORY OF PRESENT ILLNESS: This is a 73-year-old male who is a intermediate resident, admitted on 07/04/2018 with abnormal laboratories. He had hypernatremia and hyperglycemia. Blood sugar at the time of admission was more than 700 in the intermediate, in the hospital it was 334. The patient has sodium of 157. Has leukocytosis with WBC count of . The patient is not a source of history. PAST MEDICAL HISTORY: Significant for ventilator-dependent respiratory failure, anemia, diabetes mellitus, history of cardiac arrest, and seizure disorder. PAST SURGICAL HISTORY: Status post tracheostomy and G-tube placement. ALLERGIES: No known drug allergy. MEDICATIONS: Aspirin, vancomycin, Prevacid, Levemir, insulin, Zosyn, heparin, and inhalers. SOCIAL HISTORY: [facility] resident. Poor mental and functional status. The patient is Full Code. No other history obtainable. PHYSICAL EXAMINATION: VITAL SIGNS: Temperature 99, pulse 97, and blood pressure 134/74. GENERAL APPEARANCE: Well developed. HEAD AND NECK: Status post tracheostomy. HEART: Normal rate. LUNGS: On mechanical ventilator, clear sounds. ABDOMEN: Soft. G-tube is in place. EXTREMITIES: He has no edema. NEUROLOGIC: Unresponsive. ptosis more in the left eye. LABORATORY AND DIAGNOSTIC DATA: Sodium 146, potassium 3.6, chloride 110, bicarbonate 26, BUN 20, creatinine 1.2. WBC 6.5, hemoglobin 12.3, hematocrit 38.8, platelets 128. Urine culture grew E. coli. Blood culture x2 are negative. MRSA negative and VRE screen negative. Chest x-ray showed atelectasis or infiltrate in the left base. Abdominal x-ray, no acute finding. IMPRESSION: 1. Sepsis, most likely UTI. 2. The patient also has pneumonia in the left lung base. 3. Ventilator-dependent respiratory failure. 4. History of hyperglycemia, now it is under control. 5. He has hypernatremia and acute renal failure that is resolving. 6. Elevation of troponin. 7. Lactic acidosis resolving. RECOMMENDATION: Discontinue vancomycin and Zosyn. Start on ceftriaxone. Repeat his chest x-ray. At the end of my exam, I thank Dr. Galeana for involving me in care of this patient. Carlos Amaro M.D. DR: KATIE JOB#: [id number] CC: NEHEMIAH
--- NOTE | 2018-07-10 02:45 | Progress Note ---
DATE: 07/08/2018 CARDIOLOGY PROGRESS NOTE This is a late entry for 07/08/2018 SUBJECTIVE: The patient is on ventilator support via tracheostomy site. He remains on hypotonic IV fluids. He has twitching on his right side. OBJECTIVE: VITAL SIGNS: Blood pressure is 152/99, pulse 83, respirations 18, and afebrile. GENERAL: Nonverbal. Trach site clean. LUNGS: Coarse breath sounds. CARDIAC: Regular rhythm and rate. Normal S1 and S2. ABDOMEN: Soft. G-tube intact. EXTREMITIES: Trace edema. LABORATORY DATA: White count 6.5 and hemoglobin 12.3. Sodium 141, potassium 3.4, bicarbonate 26, BUN 22, creatinine 1.2, and glucose 349. Pro-natriuretic peptide 290. Albumin 1.6. IMPRESSION: 1. Severe sepsis. 2. Recovered shock. 3. Hypovolemia and dehydration. 4. Hypernatremia. 5. Urinary tract infection. 6. Pleural effusion, third spacing. 7. Possible seizures. 8. Respiratory failure with tracheostomy. 9. Insulin-requiring diabetes mellitus with uncontrolled glucose. PLAN: 1. Hypotonic IV fluids, EEG, and antimicrobials. 2. Respiratory support. 3. Glucose monitoring and titration of insulin regimen. 4. Poor prognosis. [place] M.D. DR: VAIBHAV JOB#: [id number] CC:
[2018-07-10 04:00] VITALS: BP 147/72
[2018-07-10] MEDS: NovoLOG Insulin Flexpen SUBQ SCH ×4 (05:32→23:37)
[2018-07-10 05:40] LABS: BASOPHILS % (AUTO) 0.7 % (0.0-2.0); EOSINOPHILS % (AUTO) 2.2 % (0.0-3.0); HEMATOCRIT 39.5 % (42.0-52.0); HEMOGLOBIN 12.9 G/DL (14.2-18.0); LYMPHOCYTES % (AUTO) 26.7 % (20.0-45.0); MEAN CORPUSCULAR VOLUME 85 FL (80-99); MONOCYTES % (AUTO) 5.9 % (1.0-10.0); NEUTROPHILS % (AUTO) 64.5 % (45.0-75.0); PLATELET COUNT 157 K/UL (150-450); RED BLOOD COUNT 4.63 M/UL (4.70-6.10); RED CELL DISTRIBUTION WIDTH 15.4 % (11.6-14.8); WHITE BLOOD COUNT 12.9 K/UL (4.8-10.8)
[2018-07-10 06:03] LABS: ALANINE AMINOTRANSFERASE 34 U/L (12-78); ALBUMIN/GLOBULIN RATIO 0.3 (1.0-2.7); ALKALINE PHOSPHATASE 75 U/L (46-116); ANION GAP 7 mmol/L (5-15); ASPARTATE AMINO TRANSFERASE 42 U/L (15-37); BILIRUBIN,TOTAL 0.5 MG/DL (0.2-1.0); BLOOD UREA NITROGEN 21 mg/dL (7-18); CALCIUM 8.8 MG/DL (8.5-10.1); CARBON DIOXIDE 30 MMOL/L (21-32); CHLORIDE 109 MMOL/L (98-107); CREATININE 1.2 MG/DL (0.55-1.30); POTASSIUM 3.3 MMOL/L (3.5-5.1); SODIUM 146 MMOL/L (136-145)
[2018-07-10 08:00] VITALS: BP 148/84
[2018-07-10] MEDS: Aspirin Baby 81mg GT SCH (08:35)
[2018-07-10] MEDS: levETIRAcetam 500mg/5ml Liquid GT SCH ×2 (08:37→21:15)
[2018-07-10] MEDS: Heparin 5000 units/ml inj SUBQ SCH ×2 (08:38→21:17)
[2018-07-10] MEDS: Levemir Flexpen SUBQ SCH ×2 (08:39→17:34)
--- NOTE | 2018-07-10 10:45 | Infectious Diseases Prog Note ---
Assessment/Plan Assessment/Plan antibiotics : ceftriaxone A 1. pneumonia 2. e.coli UTI 3. leucocytosis 4. respiratory failure 5. diabetes mellitus P 1. continue ceftriaxone 2. sputum culture 3. will follow up cultures Subjective ROS Limited/Unobtainable: Yes Allergies: Coded Allergies: No Known Allergies (Unverified , 07/04/18) Objective Vital Signs Last 24 Hour Vital Signs Date Time Temp Pulse Resp B/P (MAP) Pulse Ox O2 Delivery O2 Flow Rate FiO2 07/10/18 09:06 84 07/10/18 08:55 88 16 30 07/10/18 08:00 97.3 82 16 148/84 (105) 100 07/10/18 08:00 30 07/10/18 08:00 Mechanical Ventilator 07/10/18 07:05 84 15 30 07/10/18 05:25 79 16 30 07/10/18 04:00 98.7 86 18 147/72 (97) 99 07/10/18 04:00 30 07/10/18 04:00 Mechanical Ventilator 07/10/18 04:00 84 07/10/18 03:30 84 16 30 07/10/18 01:30 87 16 30 07/10/18 00:00 80 07/10/18 00:00 Mechanical Ventilator 07/10/18 00:00 98.4 84 16 144/86 (105) 99 07/10/18 00:00 30 07/09/18 23:30 84 16 30 07/09/18 21:23 87 16 30 07/09/18 20:00 92 07/09/18 20:00 98.2 92 16 128/89 (102) 100 07/09/18 20:00 30 07/09/18 20:00 Mechanical Ventilator 07/09/18 19:30 100 16 30 07/09/18 16:50 97 18 30 07/09/18 16:00 Mechanical Ventilator 07/09/18 16:00 98.4 101 16 129/69 (89) 99 07/09/18 16:00 103 07/09/18 16:00 30 07/09/18 15:15 90 16 30 07/09/18 15:15 90 16 Mechanical Ventilator 15.0 30 07/09/18 12:43 95 16 30 07/09/18 12:00 30 07/09/18 12:00 99.1 103 16 135/68 (90) 99 10/30/18 12:00 Mechanical Ventilator 07/09/18 11:37 98 07/09/18 11:10 99 16 30 Height (Feet): 5 Height (Inches): 11.00 Weight (Pounds): 218 HEENT: status post trach Respiratory/Chest: lungs clear Cardiovascular: normal rate, regular rhythm, no gallop/murmur Abdomen: soft, non tender, other - GT Extremities: no edema Laboratory Tests Test 07/10/18 04:44 White Blood Count 12.9 K/UL (4.8-10.8) H Red Blood Count 4.63 M/UL (4.70-6.10) L Hemoglobin 12.9 G/DL (14.2-18.0) L Hematocrit 39.5 % (42.0-52.0) L Mean Corpuscular Volume 85 FL (80-99) Mean Corpuscular Hemoglobin 27.9 PG (27.0-31.0) Mean Corpuscular Hemoglobin Concent 32.7 G/DL (32.0-36.0) Red Cell Distribution Width 15.4 % (11.6-14.8) H Platelet Count 157 K/UL (150-450) Mean Platelet Volume 10.5 FL (6.5-10.1) H Neutrophils (%) (Auto) 64.5 % (45.0-75.0) Lymphocytes (%) (Auto) 26.7 % (20.0-45.0) Monocytes (%) (Auto) 5.9 % (1.0-10.0) Eosinophils (%) (Auto) 2.2 % (0.0-3.0) Basophils (%) (Auto) 0.7 % (0.0-2.0) Sodium Level 146 MMOL/L (136-145) H Potassium Level 3.3 MMOL/L (3.5-5.1) L Chloride Level 109 MMOL/L (98-107) H Carbon Dioxide Level 30 MMOL/L (21-32) Anion Gap 7 mmol/L (5-15) Blood Urea Nitrogen 21 mg/dL (7-18) H Creatinine 1.2 MG/DL (0.55-1.30) Estimat Glomerular Filtration Rate mL/min (>60) Glucose Level 232 MG/DL (74-106) H Calcium Level 8.8 MG/DL (8.5-10.1) Total Bilirubin 0.5 MG/DL (0.2-1.0) Aspartate Amino Transf (AST/SGOT) 42 U/L (15-37) H Alanine Aminotransferase (ALT/SGPT) 34 U/L (12-78) Alkaline Phosphatase 75 U/L (46-116) Total Protein 8.2 G/DL (6.4-8.2) Albumin 2.0 G/DL (3.4-5.0) L Globulin 6.2 g/dL Albumin/Globulin Ratio 0.3 (1.0-2.7) L Current Medications Medications (Trade) Dose Ordered Sig/Derrick Route PRN Reason Start Time Stop Time Status Last Admin Dose Admin Acetaminophen (Tylenol) 650 mg Q4H PRN GT Mild Pain/Temp > 100.5 07/04/18 19:42 08/03/18 19:40 Aspirin (ASA) 81 mg DAILY GT 07/06/18 09:00 08/05/18 08:59 07/10/18 08:35 Ceftriaxone Sodium 1 gm/ Dextrose 55 ml @ 110 mls/hr Q24H IVPB 07/09/18 14:00 07/16/18 13:59 07/09/18 14:00 Dextrose (Dextrose 50%) 25 ml Q30M PRN IV Hypoglycemia 07/04/18 22:45 08/03/18 22:44 Dextrose (Dextrose 50%) 50 ml Q30M PRN IV Hypoglycemia 07/04/18 22:45 08/03/18 22:44 Heparin Sodium (Porcine) (Heparin 5000 units/ml) 5,000 units EVERY 12 HOURS SUBQ 07/04/18 21:00 08/03/18 20:59 07/10/18 08:38 Insulin Aspart (NovoLOG) EVERY 6 HOURS SUBQ 07/05/18 00:00 08/04/18 00:00 07/10/18 05:32 Insulin Detemir (Levemir) 15 units BID SUBQ 07/05/18 09:00 08/04/18 08:59 07/10/18 08:39 Lansoprazole (Prevacid) 30 mg DAILY GT 07/05/18 09:00 08/04/18 08:59 07/10/18 08:35 Levetiracetam (Keppra) 500 mg Q12HR GT 07/04/18 21:00 08/03/18 20:59 07/10/18 08:37 Rosalinda Guerrero MD Jul 10, 2018 10:45
--- NOTE | 2018-07-10 11:22 | Diagnostic Imaging Report ---
Indication: Cough Technique: One view of the chest Comparison: 07/04/2018 Findings: Suboptimal inspiration with increased basilar atelectasis and crowding of the bronchovascular markings at the lung bases. Tracheostomy is again demonstrated. There is probably a small to moderate left pleural effusion. Allowing for differences in degree of inspiration, findings are probably unchanged. Impression: Hypoventilatory exam with increased basilar crowding and atelectasis. 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
[2018-07-10 12:00] VITALS: BP 132/90
[2018-07-10] MEDS: cefTRIAXone 1 GM in D5W 55 ML IVPB SCH (13:35)
--- NOTE | 2018-07-10 15:25 | General Progress Note ---
Assessment/Plan Problem List: (1) Hyperglycemia ICD Codes: R73.9 - Hyperglycemia, unspecified SNOMED: 07090235 (2) Pleural effusion ICD Codes: J90 - Pleural effusion, not elsewhere classified SNOMED: 23604873 (3) Sepsis ICD Codes: A41.9 - Sepsis, unspecified organism SNOMED: 79318994 (4) UTI (urinary tract infection) ICD Codes: N39.0 - Urinary tract infection, site not specified SNOMED: 61612890 (5) Tracheostomy dependence ICD Codes: Z93.0 - Tracheostomy status SNOMED: 161685674, 781546506 (6) Elevated troponin I level ICD Codes: R74.8 - Abnormal levels of other serum enzymes SNOMED: 699833873 Status: stable Assessment/Plan dc ivf iv abx per id gt feeds sz rx check eeg follow up cultures monitor labs replace k skin care no ascites on abd herberth eeg Subjective ROS Limited/Unobtainable: Yes Constitutional: Reports: malaise, weakness HEENT: Reports: no symptoms Cardiovascular: Reports: edema Respiratory: Reports: no symptoms Gastrointestinal/Abdominal: Reports: abdomen distended Genitourinary: Reports: no symptoms Neurologic/Psychiatric: Reports: pre-existing deficit, seizure Endocrine: Reports: no symptoms Hematologic/Lymphatic: Reports: no symptoms Allergies: Coded Allergies: No Known Allergies (Unverified , 07/04/18) All Systems: reviewed and negative except above Subjective no events. no changes. remains stable. low k noted. on iv abx. no fever or chills. no sob Objective Last 24 Hour Vital Signs Date Time Temp Pulse Resp B/P (MAP) Pulse Ox O2 Delivery O2 Flow Rate FiO2 07/10/18 14:47 79 16 30 07/10/18 13:47 87 07/10/18 13:14 86 16 30 07/10/18 12:00 Mechanical Ventilator 07/10/18 12:00 30 07/10/18 12:00 98.2 84 16 132/90 (104) 100 07/10/18 11:09 85 16 30 07/10/18 09:06 84 07/10/18 08:55 88 16 30 07/10/18 08:00 97.3 82 16 148/84 (105) 100 07/10/18 08:00 30 07/10/18 08:00 Mechanical Ventilator 07/10/18 07:05 84 15 30 07/10/18 05:25 79 16 30 07/10/18 04:00 98.7 86 18 147/72 (97) 99 07/10/18 04:00 30 07/10/18 04:00 Mechanical Ventilator 07/10/18 04:00 84 07/10/18 03:30 84 16 30 07/10/18 01:30 87 16 30 07/10/18 00:00 80 07/10/18 00:00 Mechanical Ventilator 07/10/18 00:00 98.4 84 16 144/86 (105) 99 07/10/18 00:00 30 07/09/18 23:30 84 16 30 07/09/18 21:23 87 16 30 07/09/18 20:00 92 07/09/18 20:00 98.2 92 16 128/89 (102) 100 07/09/18 20:00 30 07/09/18 20:00 Mechanical Ventilator 07/09/18 19:30 100 16 30 07/09/18 16:50 97 18 30 07/09/18 16:00 Mechanical Ventilator 07/09/18 16:00 98.4 101 16 129/69 (89) 99 07/09/18 16:00 103 07/09/18 16:00 30 Intake and Output 07/09/18 07/10/18 19:00 07:00 Intake Total 90 ml 520 ml Output Total 550 ml 450 ml Balance -460 ml 70 ml Intake Free Water 160 ml Tube Feeding 90 ml 360 ml Output Urine Total 550 ml 450 ml # Bowel Movements 4 2 Laboratory Tests 07/10/18 04:44: White Blood Count 12.9H, Red Blood Count 4.63L, Hemoglobin 12.9L, Hematocrit 39.5L, Mean Corpuscular Volume 85, Mean Corpuscular Hemoglobin 27.9, Mean Corpuscular Hemoglobin Concent 32.7, Red Cell Distribution Width 15.4H, Platelet Count 157, Mean Platelet Volume 10.5H, Neutrophils (%) (Auto) 64.5, Lymphocytes (%) (Auto) 26.7, Monocytes (%) (Auto) 5.9, Eosinophils (%) (Auto) 2.2, Basophils (%) (Auto) 0.7, Sodium Level 146H, Potassium Level 3.3L, Chloride Level 109H, Carbon Dioxide Level 30, Anion Gap 7, Blood Urea Nitrogen 21H, Creatinine 1.2, Estimat Glomerular Filtration Rate , Glucose Level 232H, Calcium Level 8.8, Total Bilirubin 0.5, Aspartate Amino Transf (AST/SGOT) 42H, Alanine Aminotransferase (ALT/SGPT) 34, Alkaline Phosphatase 75, Total Protein 8.2, Albumin 2.0L, Globulin 6.2, Albumin/Globulin Ratio 0.3L Height (Feet): 5 Height (Inches): 11.00 Weight (Pounds): 218 Objective General Appearance: WD/WN, alert Neck: supple Cardiovascular: normal rate Respiratory/Chest: chest wall non-tender, lungs clear, normal breath sounds Abdomen: normal bowel sounds, non tender, soft Edema: no edema noted Arm (L), no edema noted Arm (R), no edema noted Leg (L), no edema noted Leg (R), no edema noted Pedal (L), no edema noted Pedal (R), no edema noted Generalized Neurologic: disoriented, unresponsive, aphasia Chano Galeana MD Jul 10, 2018 15:25
[2018-07-10 16:00] VITALS: BP 151/90
[2018-07-10 20:00] VITALS: BP 125/83
--- NOTE | 2018-07-10 21:47 | Pulmonology Progress Note ---
Assessment/Plan Assessment/Plan PULMONARY CONSULTATION NOTE HISTORY OF PRESENT ILLNESS: The patient is an unfortunate 73-year-old male. He has a history of anoxic encephalopathy, stroke, and seizure disorder. He has chronic respiratory failure and is now vent dependent, has a history of COPD, CAD, hypertension and cirrhosis. He was transferred from a halfway facility with complaints of abnormal laboratories. The patient was noted to have routine laboratories that showed worsening renal failure, leukocytosis, low potassium. On evaluation in the emergency room, the abnormal laboratories are verified and repeated. The patient was noted to have evidence of pneumonia, urinary tract infection. Broad-spectrum antibiotics were instituted and the patient was cultured. He is now admitted for further evaluation and care. He is nonverbal at baseline. He is unable to provide any history. PAST MEDICAL HISTORY: As above. PAST SURGICAL HISTORY: Includes a history of G-tube and tracheostomy. CURRENT MEDICATIONS: Reconciled and reviewed. ALLERGIES: None. FAMILY HISTORY: Unknown. SOCIAL HISTORY: There is no known history of tobacco, ethanol, or drugs. REVIEW OF SYSTEMS: From the patient is unobtainable as he is nonverbal at baseline. PHYSICAL EXAMINATION: VITAL SIGNS: Temperature 97.5, pulse 96, respirations 20, and blood pressure 112/70. GENERAL: The patient is a chronic ill-appearing male, in no apparent distress. He is nonverbal. NECK: Supple. Trach site was midline and clean. HEART: Regular rate and rhythm. LUNGS: Clear. ABDOMEN: Soft and nontender. Slightly distended. EXTREMITIES: No clubbing, cyanosis, or edema. LABORATORY AND DIAGNOSTIC DATA: Laboratories showed a sodium of 159, potassium 2.4, chloride 117, bicarb 27, BUN 54, creatinine 1.5. Bilirubin of 1.1. Troponin 0.134. Lactic acid level was 3. Natriuretic peptide level was 1000. Urine showed 5 to 10 wbc's. Chest x-ray suspected left basal infiltrate versus atelectasis. ASSESSMENT: This is an unfortunate male with multiple medical problems admitted with complaints of sepsis secondary to pneumonia and urinary tract infection. PROBLEM LIST: 1. Sepsis. 2. Pneumonia, COPD 3. Hypernatremia and dehydration. 4. Toxic metabolic encephalopathy. 5. Seizure disorder. 6. Acute renal failure. 7. Functional quadriplegia. 8. Cirrhosis. 9. CAD PLAN: IV hydration with hypotonic fluids. IV antibiotics. Continue current ventilator settings. We will monitor laboratories closely. Continue vent support. Respiratory treatments. The patient's status is currently guarded. Subjective ROS Limited/Unobtainable: No Allergies: Coded Allergies: No Known Allergies (Unverified , 07/04/18) Objective Last 24 Hour Vital Signs Date Time Temp Pulse Resp B/P (MAP) Pulse Ox O2 Delivery O2 Flow Rate FiO2 07/10/18 20:00 99.0 102 16 125/83 (97) 100 07/10/18 20:00 99 07/10/18 18:56 99 20 30 07/10/18 17:03 94 16 30 07/10/18 16:00 98.7 84 16 151/90 (110) 100 07/10/18 16:00 Mechanical Ventilator 07/10/18 16:00 80 07/10/18 16:00 30 07/10/18 14:47 79 16 30 07/10/18 13:47 87 07/10/18 13:14 86 16 30 07/10/18 12:00 Mechanical Ventilator 07/10/18 12:00 30 07/10/18 12:00 98.2 84 16 132/90 (104) 100 07/10/18 11:09 85 16 30 07/10/18 09:06 84 07/10/18 08:55 88 16 30 07/10/18 08:00 97.3 82 16 148/84 (105) 100 07/10/18 08:00 30 07/10/18 08:00 Mechanical Ventilator 07/10/18 07:05 84 15 30 07/10/18 05:25 79 16 30 07/10/18 04:00 98.7 86 18 147/72 (97) 99 07/10/18 04:00 30 07/10/18 04:00 Mechanical Ventilator 07/10/18 04:00 84 07/10/18 03:30 84 16 30 07/10/18 01:30 87 16 30 07/10/18 00:00 80 07/10/18 00:00 Mechanical Ventilator 07/10/18 00:00 98.4 84 16 144/86 (105) 99 07/10/18 00:00 30 07/09/18 23:30 84 16 30 Intake and Output 07/09/18 07/10/18 19:00 07:00 Intake Total 90 ml 520 ml Output Total 550 ml 450 ml Balance -460 ml 70 ml Intake Free Water 160 ml Tube Feeding 90 ml 360 ml Output Urine Total 550 ml 450 ml # Bowel Movements 4 2 Laboratory Tests 07/10/18 04:44: White Blood Count 12.9H, Red Blood Count 4.63L, Hemoglobin 12.9L, Hematocrit 39.5L, Mean Corpuscular Volume 85, Mean Corpuscular Hemoglobin 27.9, Mean Corpuscular Hemoglobin Concent 32.7, Red Cell Distribution Width 15.4H, Platelet Count 157, Mean Platelet Volume 10.5H, Neutrophils (%) (Auto) 64.5, Lymphocytes (%) (Auto) 26.7, Monocytes (%) (Auto) 5.9, Eosinophils (%) (Auto) 2.2, Basophils (%) (Auto) 0.7, Sodium Level 146H, Potassium Level 3.3L, Chloride Level 109H, Carbon Dioxide Level 30, Anion Gap 7, Blood Urea Nitrogen 21H, Creatinine 1.2, Estimat Glomerular Filtration Rate , Glucose Level 232H, Calcium Level 8.8, Total Bilirubin 0.5, Aspartate Amino Transf (AST/SGOT) 42H, Alanine Aminotransferase (ALT/SGPT) 34, Alkaline Phosphatase 75, Total Protein 8.2, Albumin 2.0L, Globulin 6.2, Albumin/Globulin Ratio 0.3L Current Medications Medications (Trade) Dose Ordered Sig/Derrick Route PRN Reason Start Time Stop Time Status Last Admin Dose Admin Acetaminophen (Tylenol) 650 mg Q4H PRN GT Mild Pain/Temp > 100.5 07/04/18 19:42 08/03/18 19:40 Aspirin (ASA) 81 mg DAILY GT 07/06/18 09:00 08/05/18 08:59 07/10/18 08:35 Ceftriaxone Sodium 1 gm/ Dextrose 55 ml @ 110 mls/hr Q24H IVPB 07/09/18 14:00 07/16/18 13:59 07/10/18 13:35 Dextrose (Dextrose 50%) 25 ml Q30M PRN IV Hypoglycemia 07/04/18 22:45 08/03/18 22:44 Dextrose (Dextrose 50%) 50 ml Q30M PRN IV Hypoglycemia 07/04/18 22:45 08/03/18 22:44 Heparin Sodium (Porcine) (Heparin 5000 units/ml) 5,000 units EVERY 12 HOURS SUBQ 07/04/18 21:00 08/03/18 20:59 07/10/18 21:17 Insulin Aspart (NovoLOG) EVERY 6 HOURS SUBQ 07/05/18 00:00 08/04/18 00:00 07/10/18 17:36 Insulin Detemir (Levemir) 15 units BID SUBQ 07/05/18 09:00 08/04/18 08:59 07/10/18 17:34 Lansoprazole (Prevacid) 30 mg DAILY GT 07/05/18 09:00 08/04/18 08:59 07/10/18 08:35 Levetiracetam (Keppra) 500 mg Q12HR GT 07/04/18 21:00 08/03/18 20:59 07/10/18 21:15 Sea Nieto MD Jul 10, 2018 21:47
--- NOTE | 2018-07-10 23:45 | Progress Note ---
DATE: 07/09/2018 CARDIOLOGY PROGRESS NOTE This is a late entry for 07/09/2018 SUBJECTIVE: The patient had an EEG because of right-sided facial twitching. No seizure focus was noted. The patient remains on hypotonic IV fluids for hypernatremia and glucose levels are elevated. The patient remains on ventilator support via tracheostomy. PHYSICAL EXAMINATION: VITAL SIGNS: Temperature max 99.3, blood pressure 155/77, heart rate 95, and respiratory rate 16. LUNGS: Coarse breath sounds. Few rhonchi. No wheezing. CARDIAC: Regular rhythm and rate. Normal S1 and S2 with no new murmur. ABDOMEN: Soft with G-tube intact. EXTREMITIES: With contractures. LABORATORY DATA: No new labs today except sodium 146, potassium 3.6, bicarbonate 26, BUN 20, and creatinine 1.2. Glucose 324. Albumin 1.7. IMPRESSION: 1. Sepsis with shock, recovering. 2. Dehydration. 3. Hypernatremia. 4. Severe protein-calorie malnutrition. 5. Insulin-requiring diabetes mellitus, uncontrolled. 6. Chronic diastolic congestive heart failure. 7. Hypertensive heart disease. PLAN: 1. Continue free water replacement, antimicrobials, respiratory hygiene, and insulin titration. 2. Ventilator support. 3. Recheck chest x-ray. [place] M.D. : VAIBHAV JOB#: [id number] CC:
--- NOTE | 2018-07-10 23:45 | Progress Note ---
DATE: 07/10/2018 CARDIOLOGY PROGRESS NOTE SUBJECTIVE: The patient remains on hypotonic IV fluids. Abnormal lab studies are noted. The patient continues on antimicrobials. He is on ventilator support via tracheostomy. He is noncommunicative. OBJECTIVE: VITAL SIGNS: Blood pressure 132/90, pulse 84, respiratory rate 16, and afebrile. LUNGS: Thin trach secretions. Bilateral breath sounds. Few rhonchi. HEART: Regular rhythm and rate. Normal S1 and S2. Monitored rhythm sinus with atrial ectopics. ABDOMEN: Soft. G-tube intact. EXTREMITIES: Contractures with trace dependent edema. LABORATORY AND DIAGNOSTIC DATA: Chest x-ray today revealed increased basilar crowding and atelectasis with left pleural effusion. Labs, white count 12.9 and hemoglobin 12.9. Sodium 146, potassium 3.3, BUN 21, and creatinine 1.2. Albumin 2.0. IMPRESSION: 1. Ventilator-dependent respiratory failure. 2. Sepsis with recovering shock. 3. Hypokalemia. 4. Dehydration. 5. Hypernatremia. 6. Hyperchloremia. 7. Diabetes mellitus, uncontrolled. 8. Severe protein-calorie malnutrition. 9. Severe sepsis. 10. Tracheostomy and ventilator-dependent respiratory failure. 11. Chronic diastolic congestive heart failure. PLAN: 1. Continue hypotonic IV fluids. 2. Adjust insulin. 3. Replace potassium. 4. Ventilator support. 5. Consider therapeutic thoracentesis. 6. No diuresis at this time until metabolic derangements can be corrected. [place] M.D. DR: KYM JOB#: [id number] CC:
[2018-07-11] VITALS: BP 144/76
[2018-07-11 04:00] VITALS: BP 143/73
[2018-07-11 05:48] LABS: BASOPHILS % (AUTO) 0.7 % (0.0-2.0); EOSINOPHILS % (AUTO) 2.8 % (0.0-3.0); HEMOGLOBIN 10.9 G/DL (14.2-18.0); LYMPHOCYTES % (AUTO) 31.7 % (20.0-45.0); MEAN CORPUSCULAR VOLUME 85 FL (80-99); MONOCYTES % (AUTO) 8.8 % (1.0-10.0); NEUTROPHILS % (AUTO) 55.9 % (45.0-75.0); PLATELET COUNT 161 K/UL (150-450); RED CELL DISTRIBUTION WIDTH 15.5 % (11.6-14.8); WHITE BLOOD COUNT 10.7 K/UL (4.8-10.8)
[2018-07-11] MEDS: NovoLOG Insulin Flexpen SUBQ SCH ×3 (06:13→17:55)
[2018-07-11] MEDS ORDERED: D5 1/2NS 1,000 ML IV SCH (06:30)
[2018-07-11 06:34] LABS: ANION GAP 6 mmol/L (5-15); BLOOD UREA NITROGEN 18 mg/dL (7-18); CALCIUM 8.5 MG/DL (8.5-10.1); CARBON DIOXIDE 30 MMOL/L (21-32); CHLORIDE 110 MMOL/L (98-107); CREATININE 1.2 MG/DL (0.55-1.30); POTASSIUM 3.7 MMOL/L (3.5-5.1); SODIUM 145 MMOL/L (136-145)
--- NOTE | 2018-07-11 07:19 | General Progress Note ---
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 - Tracheostomy status SNOMED: 713011894, 177045164 (6) Elevated troponin I level ICD Codes: R74.8 - Abnormal levels of other serum enzymes SNOMED: 726466099 Status: stable Assessment/Plan resume ivf until gt replaced iv abx per id gt feeds sz rx egg with encephalopathy- no szs follow up cultures monitor labs replace k skin care no ascites on abd herberth eeg Subjective ROS Limited/Unobtainable: Yes Constitutional: Reports: malaise, weakness HEENT: Reports: no symptoms Cardiovascular: Reports: no symptoms Respiratory: Reports: no symptoms Gastrointestinal/Abdominal: Reports: abdomen distended, difficulty swallowing Genitourinary: Reports: no symptoms Neurologic/Psychiatric: Reports: pre-existing deficit, seizure Endocrine: Reports: no symptoms Hematologic/Lymphatic: Reports: no symptoms Allergies: Coded Allergies: No Known Allergies (Unverified , 07/04/18) All Systems: reviewed and negative except above Subjective GT came out overnight. no changes. remains stable. on the vent. ivf ordered. GI called Objective Last 24 Hour Vital Signs Date Time Temp Pulse Resp B/P (MAP) Pulse Ox O2 Delivery O2 Flow Rate FiO2 07/11/18 05:14 88 17 30 07/11/18 04:00 95 07/11/18 04:00 30 07/11/18 04:00 97.8 84 17 143/73 (96) 100 07/11/18 04:00 Mechanical Ventilator 07/11/18 02:34 102 17 30 07/11/18 01:12 99 16 30 07/11/18 00:00 98.7 94 16 144/76 (98) 100 07/11/18 00:00 100 07/11/18 00:00 Mechanical Ventilator 07/10/18 22:57 101 16 30 07/10/18 21:14 103 17 30 07/10/18 20:00 30 07/10/18 20:00 99.0 102 16 125/83 (97) 100 07/10/18 20:00 Mechanical Ventilator 07/10/18 20:00 99 07/10/18 18:56 99 20 30 07/10/18 17:03 94 16 30 07/10/18 16:00 98.7 84 16 151/90 (110) 100 07/10/18 16:00 Mechanical Ventilator 07/10/18 16:00 80 07/10/18 16:00 30 07/10/18 14:47 79 16 30 07/10/18 13:47 87 07/10/18 13:14 86 16 30 07/10/18 12:00 Mechanical Ventilator 07/10/18 12:00 30 07/10/18 12:00 98.2 84 16 132/90 (104) 100 07/10/18 11:09 85 16 30 07/10/18 09:06 84 07/10/18 08:55 88 16 30 07/10/18 08:00 97.3 82 16 148/84 (105) 100 07/10/18 08:00 30 07/10/18 08:00 Mechanical Ventilator Intake and Output 07/10/18 07/11/18 19:00 07:00 Intake Total 675 ml 340 ml Output Total 300 ml 300 ml Balance 375 ml 40 ml Intake Free Water 260 ml 100 ml IV Total 55 ml Tube Feeding 360 ml 240 ml Output Urine Total 300 ml 300 ml # Bowel Movements 2 2 Laboratory Tests 07/11/18 05:08: White Blood Count 10.7, Red Blood Count 3.90L, Hemoglobin 10.9L, Hematocrit 33.0L, Mean Corpuscular Volume 85, Mean Corpuscular Hemoglobin 27.9, Mean Corpuscular Hemoglobin Concent 33.0, Red Cell Distribution Width 15.5H, Platelet Count 161, Mean Platelet Volume 10.1, Neutrophils (%) (Auto) 55.9, Lymphocytes (%) (Auto) 31.7, Monocytes (%) (Auto) 8.8, Eosinophils (%) (Auto) 2.8, Basophils (%) (Auto) 0.7, Sodium Level 145, Potassium Level 3.7, Chloride Level 110H, Carbon Dioxide Level 30, Anion Gap 6, Blood Urea Nitrogen 18, Creatinine 1.2, Estimat Glomerular Filtration Rate , Glucose Level 237H, Calcium Level 8.5, Magnesium Level 2.0, Pro-B-Type Natriuretic Peptide 968H Height (Feet): 5 Height (Inches): 11.00 Weight (Pounds): 218 Objective General Appearance: WD/WN, alert Neck: supple Cardiovascular: normal rate Respiratory/Chest: chest wall non-tender, lungs clear, normal breath sounds Abdomen: normal bowel sounds, non tender, soft Edema: no edema noted Arm (L), no edema noted Arm (R), no edema noted Leg (L), no edema noted Leg (R), no edema noted Pedal (L), no edema noted Pedal (R), no edema noted Generalized Neurologic: disoriented, unresponsive, aphasia Chano Galeana MD Jul 11, 2018 07:19
[2018-07-11 07:44] VITALS: BP 157/94
[2018-07-11] MEDS: Aspirin Baby 81mg GT SCH (08:00)
[2018-07-11] MEDS: levETIRAcetam 500mg/5ml Liquid GT SCH ×2 (08:01→20:47)
[2018-07-11] MEDS: Heparin 5000 units/ml inj SUBQ SCH ×2 (08:01→20:58)
[2018-07-11] MEDS: Levemir Flexpen SUBQ SCH ×2 (08:39→17:57)
--- NOTE | 2018-07-11 09:01 | Pulmonology Progress Note ---
Assessment/Plan Assessment/Plan 1. Sepsis. 2. Pneumonia, 3. acute renal failure 4. Toxic metabolic encephalopathy. 5. Seizure disorder. 6. electrolyte imbalance 7. Functional quadriplegia. 8. Cirrhosis. 9. CAD 10. anoxia PLAN vent support as is antibiotics adjusted as needed monitor cultures monitor respiratory status closely feeds and monitor for aspiration skin care position change close follow up stabilize and dc to snf adjust diabetic meds and monitor sugars impression, plan, and exam edited and reviewed in detail care discussed with RN Subjective ROS Limited/Unobtainable: Yes Allergies: Coded Allergies: No Known Allergies (Unverified , 07/04/18) Subjective on vent reduced LOC care noted Objective Last 24 Hour Vital Signs Date Time Temp Pulse Resp B/P (MAP) Pulse Ox O2 Delivery O2 Flow Rate FiO2 07/11/18 08:00 80 07/11/18 07:55 30 07/11/18 07:55 Mechanical Ventilator 07/11/18 07:45 95 19 30 07/11/18 07:44 98.1 82 16 157/94 (115) 100 07/11/18 05:14 88 17 30 07/11/18 04:00 95 07/11/18 04:00 30 07/11/18 04:00 97.8 84 17 143/73 (96) 100 07/11/18 04:00 Mechanical Ventilator 07/11/18 02:34 102 17 30 07/11/18 01:12 99 16 30 07/11/18 00:00 98.7 94 16 144/76 (98) 100 07/11/18 00:00 100 07/11/18 00:00 Mechanical Ventilator 07/10/18 22:57 101 16 30 07/10/18 21:14 103 17 30 07/10/18 20:00 30 07/10/18 20:00 99.0 102 16 125/83 (97) 100 07/10/18 20:00 Mechanical Ventilator 07/10/18 20:00 99 07/10/18 18:56 99 20 30 07/10/18 17:03 94 16 30 07/10/18 16:00 98.7 84 16 151/90 (110) 100 07/10/18 16:00 Mechanical Ventilator 07/10/18 16:00 80 07/10/18 16:00 30 07/10/18 14:47 79 16 30 07/10/18 13:47 87 10/31/18 13:14 86 16 30 07/10/18 12:00 Mechanical Ventilator 07/10/18 12:00 30 07/10/18 12:00 98.2 84 16 132/90 (104) 100 07/10/18 11:09 85 16 30 07/10/18 09:06 84 Intake and Output 07/10/18 07/11/18 19:00 07:00 Intake Total 675 ml 340 ml Output Total 300 ml 300 ml Balance 375 ml 40 ml Intake Free Water 260 ml 100 ml IV Total 55 ml Tube Feeding 360 ml 240 ml Output Urine Total 300 ml 300 ml # Bowel Movements 2 2 Objective WDWN poor LOC trach in place reduced breath sounds bilaterally with some rhonchi [id number] without MRG NABS nontender no HSM; GT no CC noted edema nonfocal, withdrawn reviewed and edited Laboratory Tests 07/11/18 05:08: White Blood Count 10.7, Red Blood Count 3.90L, Hemoglobin 10.9L, Hematocrit 33.0L, Mean Corpuscular Volume 85, Mean Corpuscular Hemoglobin 27.9, Mean Corpuscular Hemoglobin Concent 33.0, Red Cell Distribution Width 15.5H, Platelet Count 161, Mean Platelet Volume 10.1, Neutrophils (%) (Auto) 55.9, Lymphocytes (%) (Auto) 31.7, Monocytes (%) (Auto) 8.8, Eosinophils (%) (Auto) 2.8, Basophils (%) (Auto) 0.7, Sodium Level 145, Potassium Level 3.7, Chloride Level 110H, Carbon Dioxide Level 30, Anion Gap 6, Blood Urea Nitrogen 18, Creatinine 1.2, Estimat Glomerular Filtration Rate , Glucose Level 237H, Calcium Level 8.5, Magnesium Level 2.0, Pro-B-Type Natriuretic Peptide 968H Current Medications Medications (Trade) Dose Ordered Sig/Derrick Route PRN Reason Start Time Stop Time Status Last Admin Dose Admin Acetaminophen (Tylenol) 650 mg Q4H PRN GT Mild Pain/Temp > 100.5 07/04/18 19:42 08/03/18 19:40 Aspirin (ASA) 81 mg DAILY GT 07/06/18 09:00 08/05/18 08:59 07/10/18 08:35 Ceftriaxone Sodium 1 gm/ Dextrose 55 ml @ 110 mls/hr Q24H IVPB 07/09/18 14:00 07/16/18 13:59 07/10/18 13:35 Dextrose (Dextrose 50%) 25 ml Q30M PRN IV Hypoglycemia 07/04/18 22:45 08/03/18 22:44 Dextrose (Dextrose 50%) 50 ml Q30M PRN IV Hypoglycemia 07/04/18 22:45 08/03/18 22:44 Dextrose/Sodium Chloride 1,000 ml @ 70 mls/hr [id number] IV 07/11/18 06:30 08/10/18 06:29 07/11/18 06:40 Heparin Sodium (Porcine) (Heparin 5000 units/ml) 5,000 units EVERY 12 HOURS SUBQ 07/04/18 21:00 08/03/18 20:59 07/10/18 21:17 Insulin Aspart (NovoLOG) EVERY 6 HOURS SUBQ 07/05/18 00:00 08/04/18 00:00 07/11/18 06:13 Insulin Detemir (Levemir) 15 units BID SUBQ 07/05/18 09:00 08/04/18 08:59 07/11/18 08:39 Lansoprazole (Prevacid) 30 mg DAILY GT 07/05/18 09:00 08/04/18 08:59 07/10/18 08:35 Levetiracetam (Keppra) 500 mg Q12HR GT 07/04/18 21:00 08/03/18 20:59 07/10/18 21:15 Bakari Montanez MD Jul 11, 2018 09:00
--- NOTE | 2018-07-11 11:38 | Infectious Diseases Prog Note ---
Assessment/Plan Assessment/Plan A: 1. pneumonia, atelectasis 2. e.coli UTI 3. leucocytosis resolved 4. respiratory failure on ventilator 5. diabetes mellitus P 1. continue ceftriaxone 2. will follow up cultures Subjective ROS Limited/Unobtainable: Yes Allergies: Coded Allergies: No Known Allergies (Unverified , 07/04/18) Objective Vital Signs Last 24 Hour Vital Signs Date Time Temp Pulse Resp B/P (MAP) Pulse Ox O2 Delivery O2 Flow Rate FiO2 07/11/18 10:30 85 16 30 07/11/18 09:00 90 16 30 07/11/18 08:00 80 07/11/18 07:55 30 07/11/18 07:55 Mechanical Ventilator 07/11/18 07:45 95 19 30 07/11/18 07:44 98.1 82 16 157/94 (115) 100 07/11/18 05:14 88 17 30 07/11/18 04:00 95 07/11/18 04:00 30 07/11/18 04:00 97.8 84 17 143/73 (96) 100 07/11/18 04:00 Mechanical Ventilator 07/11/18 02:34 102 17 30 07/11/18 01:12 99 16 30 07/11/18 00:00 98.7 94 16 144/76 (98) 100 07/11/18 00:00 100 07/11/18 00:00 Mechanical Ventilator 07/10/18 22:57 101 16 30 07/10/18 21:14 103 17 30 07/10/18 20:00 30 07/10/18 20:00 99.0 102 16 125/83 (97) 100 07/10/18 20:00 Mechanical Ventilator 07/10/18 20:00 99 07/10/18 18:56 99 20 30 07/10/18 17:03 94 16 30 07/10/18 16:00 98.7 84 16 151/90 (110) 100 07/10/18 16:00 Mechanical Ventilator 07/10/18 16:00 80 07/10/18 16:00 30 07/10/18 14:47 79 16 30 07/10/18 13:47 87 07/10/18 13:14 86 16 30 07/10/18 12:00 Mechanical Ventilator 07/10/18 12:00 30 07/10/18 12:00 98.2 84 16 132/90 (104) 100 Height (Feet): 5 Height (Inches): 11.00 Weight (Pounds): 218 HEENT: status post trach Respiratory/Chest: lungs clear, other - on ventilator Cardiovascular: normal rate Abdomen: soft, non tender, other - GT feeding Extremities: other - generalized edema Neurologic/Psychiatric: unresponsiveness, other - jerky movement of mouth Laboratory Tests Test 07/11/18 05:08 White Blood Count 10.7 K/UL (4.8-10.8) Red Blood Count 3.90 M/UL (4.70-6.10) L Hemoglobin 10.9 G/DL (14.2-18.0) L Hematocrit 33.0 % (42.0-52.0) L Mean Corpuscular Volume 85 FL (80-99) Mean Corpuscular Hemoglobin 27.9 PG (27.0-31.0) Mean Corpuscular Hemoglobin Concent 33.0 G/DL (32.0-36.0) Red Cell Distribution Width 15.5 % (11.6-14.8) H Platelet Count 161 K/UL (150-450) Mean Platelet Volume 10.1 FL (6.5-10.1) Neutrophils (%) (Auto) 55.9 % (45.0-75.0) Lymphocytes (%) (Auto) 31.7 % (20.0-45.0) Monocytes (%) (Auto) 8.8 % (1.0-10.0) Eosinophils (%) (Auto) 2.8 % (0.0-3.0) Basophils (%) (Auto) 0.7 % (0.0-2.0) Sodium Level 145 MMOL/L (136-145) Potassium Level 3.7 MMOL/L (3.5-5.1) Chloride Level 110 MMOL/L (98-107) H Carbon Dioxide Level 30 MMOL/L (21-32) Anion Gap 6 mmol/L (5-15) Blood Urea Nitrogen 18 mg/dL (7-18) Creatinine 1.2 MG/DL (0.55-1.30) Estimat Glomerular Filtration Rate mL/min (>60) Glucose Level 237 MG/DL (74-106) H Calcium Level 8.5 MG/DL (8.5-10.1) Magnesium Level 2.0 MG/DL (1.8-2.4) Pro-B-Type Natriuretic Peptide 968 pg/mL (0-125) H Current Medications Medications (Trade) Dose Ordered Sig/Derrick Route PRN Reason Start Time Stop Time Status Last Admin Dose Admin Acetaminophen (Tylenol) 650 mg Q4H PRN GT Mild Pain/Temp > 100.5 07/04/18 19:42 08/03/18 19:40 Aspirin (ASA) 81 mg DAILY GT 07/06/18 09:00 08/05/18 08:59 07/10/18 08:35 Ceftriaxone Sodium 1 gm/ Dextrose 55 ml @ 110 mls/hr Q24H IVPB 07/09/18 14:00 07/16/18 13:59 07/10/18 13:35 Dextrose (Dextrose 50%) 25 ml Q30M PRN IV Hypoglycemia 07/04/18 22:45 08/03/18 22:44 Dextrose (Dextrose 50%) 50 ml Q30M PRN IV Hypoglycemia 07/04/18 22:45 08/03/18 22:44 Dextrose/Sodium Chloride 1,000 ml @ 70 mls/hr [id number] IV 07/11/18 06:30 08/10/18 06:29 07/11/18 06:40 Heparin Sodium (Porcine) (Heparin 5000 units/ml) 5,000 units EVERY 12 HOURS SUBQ 07/04/18 21:00 08/03/18 20:59 07/10/18 21:17 Insulin Aspart (NovoLOG) EVERY 6 HOURS SUBQ 07/05/18 00:00 08/04/18 00:00 07/11/18 06:13 Insulin Detemir (Levemir) 15 units BID SUBQ 07/05/18 09:00 08/04/18 08:59 07/11/18 08:39 Lansoprazole (Prevacid) 30 mg DAILY GT 07/05/18 09:00 08/04/18 08:59 07/10/18 08:35 Levetiracetam (Keppra) 500 mg Q12HR GT 07/04/18 21:00 08/03/18 20:59 07/10/18 21:15 Carlos Amaro MD Jul 11, 2018 11:38
[2018-07-11 12:00] VITALS: BP 160/91
--- NOTE | 2018-07-11 12:57 | Diagnostic Imaging Report ---
Indication: Reason For Exam: TUBE PLCMT Technique: Supine view of the abdomen after injection of water-soluble contrast into gastrostomy Comparison: none Findings: Contrast opacifies the stomach. No contrast extravasation is demonstrated. The bowel gas pattern is unremarkable. Impression: Satisfactory position of gastrostomy tube Findings discussed by phone with patient's nurse at the time of interpretation
[2018-07-11] MEDS ORDERED: Heparin 2000 units/Ns 1000ml INJ PRN (14:00)
[2018-07-11] MEDS ORDERED: Lidocaine 1% Plain 30 ml INJ PRN (14:00)
[2018-07-11] MEDS: cefTRIAXone 1 GM in D5W 55 ML IVPB SCH (15:34)
[2018-07-11 16:00] VITALS: BP 150/94
--- NOTE | 2018-07-11 16:26 | Diagnostic Imaging Report ---
Indications: Needs long-term IV access Technique: Procedure performed at bedside. Procedural timeout performed. Ultrasound confirms patent compressible right basilic vein. Total sterile technique, including sterile probe cover and sterile gel, sterile gloves, hand hygiene, hat, mask,, sterile gown, large sterile drape, and preparation with 2% chlorhexidine utilized. Local anesthesia with 1% lidocaine. Under real-time ultrasound guidance, puncture basilic vein using 21-gauge needle, passage 0.018 guidewire, exchange for 5 Guatemalan peel-away sheath. 5 [place] dual-lumen power PICC cut to 43 cm. It was inserted through the peel-away sheath. Peel-away sheath and guidewire removed. Catheter fixed to the skin. Both catheter ports aspirated and flushed. Patient tolerated procedure well, without immediate complication. Followup chest x-ray obtained, documents catheter tip position at the deep right atrium. The catheter was therefore pulled back, and a follow-up radiograph obtained, demonstrating satisfactory catheter tip position at the cavoatrial junction. Impression: Successful bedside placement of right arm PICC under sonographic guidance, as described above.
[2018-07-11 20:00] VITALS: BP 141/86
[2018-07-11] MEDS: Dyna-Hex 2% Top Sol 2oz TOPIC SCH (20:47)
--- NOTE | 2018-07-11 21:45 | General Progress Note ---
Assessment/Plan Assessment/Plan GI CONSULT Dictated GT changed Will follow Thank you Manolo Okeefe MD Subjective Allergies: Coded Allergies: No Known Allergies (Unverified , 07/04/18) Objective Last 24 Hour Vital Signs Date Time Temp Pulse Resp B/P (MAP) Pulse Ox O2 Delivery O2 Flow Rate FiO2 07/11/18 21:07 90 17 30 07/11/18 19:00 88 16 30 07/11/18 16:50 88 17 30 07/11/18 16:00 91 07/11/18 16:00 Mechanical Ventilator 07/11/18 16:00 30 07/11/18 16:00 97.0 91 16 150/94 (112) 100 07/11/18 15:06 85 16 30 07/11/18 12:55 91 14 30 07/11/18 12:01 78 07/11/18 12:00 Mechanical Ventilator 07/11/18 12:00 97.7 79 17 160/91 (114) 100 07/11/18 12:00 30 07/11/18 10:30 85 16 30 07/11/18 09:00 90 16 30 07/11/18 08:00 80 07/11/18 07:55 30 07/11/18 07:55 Mechanical Ventilator 07/11/18 07:45 95 19 30 07/11/18 07:44 98.1 82 16 157/94 (115) 100 07/11/18 05:14 88 17 30 07/11/18 04:00 95 07/11/18 04:00 30 07/11/18 04:00 97.8 84 17 143/73 (96) 100 07/11/18 04:00 Mechanical Ventilator 07/11/18 02:34 102 17 30 07/11/18 01:12 99 16 30 07/11/18 00:00 98.7 94 16 144/76 (98) 100 07/11/18 00:00 100 07/11/18 00:00 Mechanical Ventilator 07/10/18 22:57 101 16 30 Intake and Output 07/10/18 07/11/18 19:00 07:00 Intake Total 675 ml 340 ml Output Total 300 ml 300 ml Balance 375 ml 40 ml Intake Free Water 260 ml 100 ml IV Total 55 ml Tube Feeding 360 ml 240 ml Output Urine Total 300 ml 300 ml # Bowel Movements 2 2 Laboratory Tests 07/11/18 05:08: White Blood Count 10.7, Red Blood Count 3.90L, Hemoglobin 10.9L, Hematocrit 33.0L, Mean Corpuscular Volume 85, Mean Corpuscular Hemoglobin 27.9, Mean Corpuscular Hemoglobin Concent 33.0, Red Cell Distribution Width 15.5H, Platelet Count 161, Mean Platelet Volume 10.1, Neutrophils (%) (Auto) 55.9, Lymphocytes (%) (Auto) 31.7, Monocytes (%) (Auto) 8.8, Eosinophils (%) (Auto) 2.8, Basophils (%) (Auto) 0.7, Sodium Level 145, Potassium Level 3.7, Chloride Level 110H, Carbon Dioxide Level 30, Anion Gap 6, Blood Urea Nitrogen 18, Creatinine 1.2, Estimat Glomerular Filtration Rate , Glucose Level 237H, Calcium Level 8.5, Magnesium Level 2.0, Pro-B-Type Natriuretic Peptide 968H Height (Feet): 5 Height (Inches): 11.00 Weight (Pounds): 218 Manolo Okeefe MD Jul 11, 2018 21:45
[2018-07-12] VITALS: BP 160/90
[2018-07-12] MEDS: NovoLOG Insulin Flexpen SUBQ SCH ×4 (00:04→17:40)
--- NOTE | 2018-07-12 01:15 | Progress Note ---
DATE: 07/11/2018 CARDIOLOGY PROGRESS NOTE SUBJECTIVE: The patient remains noncommunicative on ventilator support via tracheostomy. G-tube replacement is planned. Intravenous fluids are initiated as the tube was dislodged. OBJECTIVE: VITAL SIGNS: Blood pressure 142/73, pulse 84, respirations 17, and afebrile. Monitor, sinus and sinus tachycardia. Rare atrial ectopy. LUNGS: Good breath sounds. Few rhonchi. HEART: Regular rhythm and rate. Normal S1, S2. ABDOMEN: Soft. G-tube site closed. EXTREMITIES: There is no edema. There is a PICC line in the right upper extremity. LABORATORY DATA: White count 10.7 and hemoglobin 10.9. Sodium 145, potassium 3.7, bicarbonate 30, BUN 18, and creatinine 1.2. Magnesium 2. Pro-natriuretic peptide has increased to 968. IMPRESSION: 1. Sepsis with recovering shock. 2. Ventilator-dependent respiratory failure. 3. Gastrostomy tube explantation. 4. Hypokalemia . 5. Recovered dehydration and hypernatremia. 6. Severe protein-calorie malnutrition . 7. Tracheostomy with ventilator-dependent respiratory failure. 8. Acute on chronic diastolic congestive heart failure. 9. Type 2 diabetes mellitus. PLAN: 1. Maintenance intravenous fluid hydration. 2. Pending G-tube replacement. 3. Consider diuresis subsequently. 4. Replace electrolytes based on laboratory findings. 5. Antimicrobials. 6. Ventilator support. 7. Consideration for therapeutic thoracentesis to follow. 8. DVT prophylaxis. [place] M.D. DR: DESMOND JOB#: [id number] CC:
[2018-07-12 04:00] VITALS: BP 139/75
[2018-07-12 05:46] LABS: CREATINE KINASE 160 U/L (26-308)
--- NOTE | 2018-07-12 07:15 | Consultation ---
DATE OF CONSULTATION: 07/11/2018 GASTROENTEROLOGY CONSULTATION CONSULTING PHYSICIAN: Manolo Okeefe M.D. CHIEF COMPLAINT: I was asked to see this patient by Dr. Chano Galeana for evaluation of abnormal liver tests and gastrostomy tube dysfunction. HISTORY OF PRESENT ILLNESS: The patient is an unfortunate 73-year-old man with multiple medical problems who was brought into the hospital due to worsening renal failure. During the course of admission, his gastrostomy tube was dislodged and this consultation was generated. In addition, he was noted to have abnormal liver tests. It is the second reason for his evaluation. The patient had no chart history of any liver issues, but he does have a history of diabetes. PAST MEDICAL HISTORY: History of anoxic encephalopathy, stroke, seizure disorder, status post tracheostomy, status post gastrostomy, bedbound state, and contractures. FAMILY HISTORY: Noncontributory. SOCIAL HISTORY: The patient has no recent history of smoking or drinking. REVIEW OF SYSTEMS: Otherwise negative. PHYSICAL EXAMINATION: GENERAL: Debilitated man, seen in his room. HEENT: Normocephalic and atraumatic. NECK: Tracheostomy catheter. CARDIOVASCULAR: Regular rhythm and rate. ABDOMEN: Soft. Good bowel sounds. The Vera catheter was removed and replaced with a 20-Japanese gastrostomy balloon-tip catheter, and the tip was confirmed by bedside technique. EXTREMITIES: Trace edema as well as contracture deformities. LABORATORY DATA: Noted Assessment This patient has abnormal liver tests, which on admission were mild and possibly due to diabetes related fatty liver disease. Other possibilities have been considered. Mass lesions are being a consideration as well as hepatitis, biopsy may be helpful. The patient had an abdominal ultrasound a few days ago, which did not show any major liver abnormalities, and therefore mass lesions are not likely. I would limit the workup. Check hepatitis serologies only and follow the parameters conservatively. The gastrostomy tube care was also discussed with nursing staff. RECOMMENDATIONS: Per above discussion and per orders written in the chart. Thank you for asking me to participate in the care of this patient. Manolo Okeefe M.D. DR: PK/SD JOB#: [id number] CC: NEHEMIAH
[2018-07-12 08:00] VITALS: BP 159/85
[2018-07-12] MEDS: Heparin 5000 units/ml inj SUBQ SCH ×2 (09:00→20:41)
[2018-07-12] MEDS: levETIRAcetam 500mg/5ml Liquid GT SCH ×2 (09:00→20:39)
[2018-07-12] MEDS: Levemir Flexpen SUBQ SCH ×2 (09:00→17:40)
[2018-07-12] MEDS: Aspirin Baby 81mg GT SCH (09:00)
--- NOTE | 2018-07-12 11:00 | Infectious Diseases Prog Note ---
Assessment/Plan Assessment/Plan antibiotics : ceftriaxone A 1. gram negative pneumonia 2. e.coli UTI 3. leucocytosis resolved 4. respiratory failure 5. diabetes mellitus P 1. continue ceftriaxone 2. will follow up cultures Subjective ROS Limited/Unobtainable: Yes Allergies: Coded Allergies: No Known Allergies (Unverified , 07/04/18) Objective Vital Signs Last 24 Hour Vital Signs Date Time Temp Pulse Resp B/P (MAP) Pulse Ox O2 Delivery O2 Flow Rate FiO2 07/12/18 10:36 85 16 30 07/12/18 09:02 81 16 30 07/12/18 08:00 97.7 77 16 159/85 (109) 99 07/12/18 07:51 78 07/12/18 06:50 75 16 30 07/12/18 05:13 80 16 30 07/12/18 04:00 86 07/12/18 04:00 97.6 85 23 139/75 (96) 100 07/12/18 04:00 81 07/12/18 04:00 Mechanical Ventilator 07/12/18 04:00 30 07/12/18 02:53 81 16 30 07/12/18 01:00 85 16 30 07/12/18 00:00 30 07/12/18 00:00 Mechanical Ventilator 07/12/18 00:00 98.7 82 20 160/90 (113) 100 07/11/18 23:00 84 16 30 07/11/18 21:07 90 17 30 07/11/18 20:00 Mechanical Ventilator 07/11/18 20:00 97.9 86 16 141/86 (104) 100 07/11/18 20:00 30 07/11/18 20:00 86 07/11/18 19:00 88 16 30 07/11/18 16:50 88 17 30 07/11/18 16:00 91 07/11/18 16:00 Mechanical Ventilator 07/11/18 16:00 30 07/11/18 16:00 97.0 91 16 150/94 (112) 100 07/11/18 15:06 85 16 30 07/11/18 12:55 91 14 30 07/11/18 12:01 78 07/11/18 12:00 Mechanical Ventilator 07/11/18 12:00 97.7 79 17 160/91 (114) 100 07/11/18 12:00 30 Height (Feet): 5 Height (Inches): 11.00 Weight (Pounds): 218 HEENT: status post trach Respiratory/Chest: lungs clear Cardiovascular: normal rate, regular rhythm, no gallop/murmur Abdomen: soft, non tender, other - Gt Extremities: no edema, other - right arm PICC Microbiology Date/Time Source Procedure Growth Status 07/10/18 15:50 Sputum Gram Stain - Final Resulted 07/10/18 15:50 Sputum Culture - Preliminary Gram Negative Bacillus 1 Resulted Laboratory Tests Test 07/12/18 04:00 Total Creatine Kinase 160 U/L (26-308) Hepatitis A IgM Antibody Pending Hepatitis B Surface Antigen Pending Hepatitis B Core IgM Antibody Pending Hepatitis C Antibody Pending Current Medications Medications (Trade) Dose Ordered Sig/Derrick Route PRN Reason Start Time Stop Time Status Last Admin Dose Admin Acetaminophen (Tylenol) 650 mg Q4H PRN GT Mild Pain/Temp > 100.5 07/04/18 19:42 08/03/18 19:40 Aspirin (ASA) 81 mg DAILY GT 07/06/18 09:00 08/05/18 08:59 07/12/18 09:00 Ceftriaxone Sodium 1 gm/ Dextrose 55 ml @ 110 mls/hr Q24H IVPB 07/09/18 14:00 07/16/18 13:59 07/11/18 15:34 Chlorhexidine Gluconate (Gwendolyn-Hex 2%) 1 applic DAILY@2000 TOPIC 07/11/18 20:00 08/10/18 19:59 07/11/18 20:47 Dextrose (Dextrose 50%) 25 ml Q30M PRN IV Hypoglycemia 07/04/18 22:45 08/03/18 22:44 Dextrose (Dextrose 50%) 50 ml Q30M PRN IV Hypoglycemia 07/04/18 22:45 08/03/18 22:44 Heparin Sodium (Porcine) (Heparin 5000 units/ml) 5,000 units EVERY 12 HOURS SUBQ 07/04/18 21:00 08/03/18 20:59 07/12/18 09:00 Heparin Sodium/ Sodium Chloride (Heparin 2000 units/Ns 1000ml premix) 2,000 unit ONCE PRN INJ PICC 07/11/18 14:00 07/12/18 23:59 Insulin Aspart (NovoLOG) EVERY 6 HOURS SUBQ 07/05/18 00:00 08/04/18 00:00 07/12/18 06:18 Insulin Detemir (Levemir) 15 units BID SUBQ 07/05/18 09:00 08/04/18 08:59 07/12/18 09:00 Lansoprazole (Prevacid) 30 mg DAILY GT 07/05/18 09:00 08/04/18 08:59 07/12/18 09:00 Levetiracetam (Keppra) 500 mg Q12HR GT 07/04/18 21:00 08/03/18 20:59 07/12/18 09:00 Rosalinda Guerrero MD Jul 12, 2018 11:00
[2018-07-12 12:00] VITALS: BP 178/98
--- NOTE | 2018-07-12 14:23 | General Progress Note ---
Assessment/Plan Problem List: (1) Hyperglycemia ICD Codes: R73.9 - Hyperglycemia, unspecified SNOMED: 07532715 (2) Pleural effusion ICD Codes: J90 - Pleural effusion, not elsewhere classified SNOMED: 35609205 (3) Sepsis ICD Codes: A41.9 - Sepsis, unspecified organism SNOMED: 67483582 (4) UTI (urinary tract infection) ICD Codes: N39.0 - Urinary tract infection, site not specified SNOMED: 48426627 (5) Tracheostomy dependence ICD Codes: Z93.0 - Tracheostomy status SNOMED: 558980299, 669012255 (6) Elevated troponin I level ICD Codes: R74.8 - Abnormal levels of other serum enzymes SNOMED: 075772125 Status: stable, progressing Assessment/Plan iv abx per id gt feeds sz rx egg with encephalopathy- no szs follow up cultures monitor labs replace k skin care dc planning if ok with all Subjective ROS Limited/Unobtainable: Yes Constitutional: Reports: malaise, weakness HEENT: Reports: no symptoms Cardiovascular: Reports: no symptoms Respiratory: Reports: shortness of breath Gastrointestinal/Abdominal: Reports: abdomen distended Genitourinary: Reports: no symptoms Neurologic/Psychiatric: Reports: pre-existing deficit, seizure Endocrine: Reports: no symptoms Hematologic/Lymphatic: Reports: anemia Allergies: Coded Allergies: No Known Allergies (Unverified , 07/04/18) All Systems: reviewed and negative except above Subjective gt replaced. no fever or chills. no szs. tolerating feeds, remains on iv abx Objective Last 24 Hour Vital Signs Date Time Temp Pulse Resp B/P (MAP) Pulse Ox O2 Delivery O2 Flow Rate FiO2 07/12/18 12:40 109 20 30 07/12/18 12:00 98.2 104 22 178/98 (124) 99 07/12/18 12:00 30 07/12/18 12:00 106 07/12/18 12:00 Mechanical Ventilator 07/12/18 10:36 85 16 30 07/12/18 09:02 81 16 30 07/12/18 08:00 97.7 77 16 159/85 (109) 99 07/12/18 08:00 30 07/12/18 08:00 Mechanical Ventilator 07/12/18 07:51 78 07/12/18 06:50 75 16 30 07/12/18 05:13 80 16 30 07/12/18 04:00 86 07/12/18 04:00 97.6 85 23 139/75 (96) 100 07/12/18 04:00 81 07/12/18 04:00 Mechanical Ventilator 07/12/18 04:00 30 07/12/18 02:53 81 16 30 07/12/18 01:00 85 16 30 07/12/18 00:00 30 07/12/18 00:00 Mechanical Ventilator 07/12/18 00:00 98.7 82 20 160/90 (113) 100 07/11/18 23:00 84 16 30 07/11/18 21:07 90 17 30 07/11/18 20:00 Mechanical Ventilator 07/11/18 20:00 97.9 86 16 141/86 (104) 100 07/11/18 20:00 30 07/11/18 20:00 86 07/11/18 19:00 88 16 30 07/11/18 16:50 88 17 30 07/11/18 16:00 91 07/11/18 16:00 Mechanical Ventilator 07/11/18 16:00 30 07/11/18 16:00 97.0 91 16 150/94 (112) 100 07/11/18 15:06 85 16 30 Intake and Output 07/11/18 07/12/18 19:00 07:00 Intake Total 815 ml 460 ml Output Total 350 ml 800 ml Balance 465 ml -340 ml Intake Free Water 130 ml 100 ml IV Total 475 ml Tube Feeding 210 ml 360 ml Output Urine Total 350 ml 500 ml Stool Total 300 ml # Bowel Movements 2 4 Laboratory Tests 07/12/18 04:00: Total Creatine Kinase 160, Hepatitis A IgM Antibody [Pending], Hepatitis B Surface Antigen [Pending], Hepatitis B Core IgM Antibody [Pending], Hepatitis C Antibody [Pending] Height (Feet): 5 Height (Inches): 11.00 Weight (Pounds): 218 Objective General Appearance: WD/WN, alert Neck: supple Cardiovascular: normal rate Respiratory/Chest: chest wall non-tender, lungs clear, normal breath sounds Abdomen: normal bowel sounds, non tender, soft Edema: no edema noted Arm (L), no edema noted Arm (R), no edema noted Leg (L), no edema noted Leg (R), no edema noted Pedal (L), no edema noted Pedal (R), no edema noted Generalized Neurologic: disoriented, unresponsive, aphasia Chano Galeana MD Jul 12, 2018 14:23
--- NOTE | 2018-07-12 14:36 | Pulmonology Progress Note ---
Assessment/Plan Assessment/Plan PULMONARY FOLLOW UP HISTORY OF PRESENT ILLNESS: The patient is an unfortunate 73-year-old male. He has a history of anoxic encephalopathy, stroke, and seizure disorder. He has chronic respiratory failure and is now vent dependent, has a history of COPD, CAD, hypertension and cirrhosis. He was transferred from a longterm facility with complaints of abnormal laboratories. The patient was noted to have routine laboratories that showed worsening renal failure, leukocytosis, low potassium. On evaluation in the emergency room, the abnormal laboratories are verified and repeated. The patient was noted to have evidence of pneumonia, urinary tract infection. Broad-spectrum antibiotics were instituted and the patient was cultured. He is now admitted for further evaluation and care. He is nonverbal at baseline. He is unable to provide any history. Stable overnight PAST MEDICAL HISTORY: As above. PAST SURGICAL HISTORY: Includes a history of G-tube and tracheostomy. CURRENT MEDICATIONS: Reconciled and reviewed. ALLERGIES: None. FAMILY HISTORY: Unknown. SOCIAL HISTORY: There is no known history of tobacco, ethanol, or drugs. REVIEW OF SYSTEMS: From the patient is unobtainable as he is nonverbal at baseline. PHYSICAL EXAMINATION: VITAL SIGNS: Temperature 97.5, pulse 96, respirations 20, and blood pressure 112/70. GENERAL: The patient is a chronic ill-appearing male, in no apparent distress. He is nonverbal. NECK: Supple. Trach site was midline and clean. HEART: Regular rate and rhythm. LUNGS: Clear. ABDOMEN: Soft and nontender. Slightly distended. EXTREMITIES: No clubbing, cyanosis, or edema. LABORATORY AND DIAGNOSTIC DATA: Laboratories showed a sodium of 159, potassium 2.4, chloride 117, bicarb 27, BUN 54, creatinine 1.5. Bilirubin of 1.1. Troponin 0.134. Lactic acid level was 3. Natriuretic peptide level was 1000. Urine showed 5 to 10 wbc's. Chest x-ray suspected left basal infiltrate versus atelectasis. ASSESSMENT: This is an unfortunate male with multiple medical problems admitted with complaints of sepsis secondary to pneumonia and urinary tract infection. PROBLEM LIST: 1. Sepsis. 2. Pneumonia, COPD 3. Hypernatremia and dehydration. 4. Toxic metabolic encephalopathy. 5. Seizure disorder. 6. Acute renal failure. 7. Functional quadriplegia. 8. Cirrhosis. 9. CAD PLAN: IV hydration with hypotonic fluids. IV antibiotics. Continue current ventilator settings. We will monitor laboratories closely. Continue vent support. Respiratory treatments. The patient's status is currently guarded. Subjective ROS Limited/Unobtainable: No Allergies: Coded Allergies: No Known Allergies (Unverified , 07/04/18) Objective Last 24 Hour Vital Signs Date Time Temp Pulse Resp B/P (MAP) Pulse Ox O2 Delivery O2 Flow Rate FiO2 07/12/18 12:40 109 20 30 07/12/18 12:00 98.2 104 22 178/98 (124) 99 07/12/18 12:00 30 07/12/18 12:00 106 07/12/18 12:00 Mechanical Ventilator 07/12/18 10:36 85 16 30 07/12/18 09:02 81 16 30 07/12/18 08:00 97.7 77 16 159/85 (109) 99 07/12/18 08:00 30 07/12/18 08:00 Mechanical Ventilator 07/12/18 07:51 78 07/12/18 06:50 75 16 30 07/12/18 05:13 80 16 30 07/12/18 04:00 86 07/12/18 04:00 97.6 85 23 139/75 (96) 100 07/12/18 04:00 81 07/12/18 04:00 Mechanical Ventilator 07/12/18 04:00 30 07/12/18 02:53 81 16 30 07/12/18 01:00 85 16 30 07/12/18 00:00 30 07/12/18 00:00 Mechanical Ventilator 07/12/18 00:00 98.7 82 20 160/90 (113) 100 07/11/18 23:00 84 16 30 07/11/18 21:07 90 17 30 07/11/18 20:00 Mechanical Ventilator 07/11/18 20:00 97.9 86 16 141/86 (104) 100 07/11/18 20:00 30 07/11/18 20:00 86 07/11/18 19:00 88 16 30 07/11/18 16:50 88 17 30 07/11/18 16:00 91 07/11/18 16:00 Mechanical Ventilator 07/11/18 16:00 30 07/11/18 16:00 97.0 91 16 150/94 (112) 100 07/11/18 15:06 85 16 30 Intake and Output 07/11/18 07/12/18 19:00 07:00 Intake Total 815 ml 460 ml Output Total 350 ml 800 ml Balance 465 ml -340 ml Intake Free Water 130 ml 100 ml IV Total 475 ml Tube Feeding 210 ml 360 ml Output Urine Total 350 ml 500 ml Stool Total 300 ml # Bowel Movements 2 4 Microbiology Date/Time Source Procedure Growth Status 07/10/18 15:50 Sputum Gram Stain - Final Resulted 07/10/18 15:50 Sputum Culture - Preliminary Gram Negative Bacillus 1 Resulted Laboratory Tests 07/12/18 04:00: Total Creatine Kinase 160, Hepatitis A IgM Antibody [Pending], Hepatitis B Surface Antigen [Pending], Hepatitis B Core IgM Antibody [Pending], Hepatitis C Antibody [Pending] Current Medications Medications (Trade) Dose Ordered Sig/Derrick Route PRN Reason Start Time Stop Time Status Last Admin Dose Admin Acetaminophen (Tylenol) 650 mg Q4H PRN GT Mild Pain/Temp > 100.5 07/04/18 19:42 08/03/18 19:40 Aspirin (ASA) 81 mg DAILY GT 07/06/18 09:00 08/05/18 08:59 07/12/18 09:00 Ceftriaxone Sodium 1 gm/ Dextrose 55 ml @ 110 mls/hr Q24H IVPB 07/09/18 14:00 07/16/18 13:59 07/11/18 15:34 Chlorhexidine Gluconate (Gwendolyn-Hex 2%) 1 applic DAILY@2000 TOPIC 07/11/18 20:00 08/10/18 19:59 07/11/18 20:47 Dextrose (Dextrose 50%) 25 ml Q30M PRN IV Hypoglycemia 07/04/18 22:45 08/03/18 22:44 Dextrose (Dextrose 50%) 50 ml Q30M PRN IV Hypoglycemia 07/04/18 22:45 08/03/18 22:44 Heparin Sodium (Porcine) (Heparin 5000 units/ml) 5,000 units EVERY 12 HOURS SUBQ 07/04/18 21:00 08/03/18 20:59 07/12/18 09:00 Heparin Sodium/ Sodium Chloride (Heparin 2000 units/Ns 1000ml premix) 2,000 unit ONCE PRN INJ PICC 07/11/18 14:00 07/12/18 23:59 Insulin Aspart (NovoLOG) EVERY 6 HOURS SUBQ 07/05/18 00:00 08/04/18 00:00 07/12/18 12:31 Insulin Detemir (Levemir) 15 units BID SUBQ 07/05/18 09:00 08/04/18 08:59 07/12/18 09:00 Lansoprazole (Prevacid) 30 mg DAILY GT 07/05/18 09:00 08/04/18 08:59 07/12/18 09:00 Levetiracetam (Keppra) 500 mg Q12HR GT 07/04/18 21:00 08/03/18 20:59 07/12/18 09:00 Sea Nieto MD Jul 12, 2018 14:35
[2018-07-12] MEDS: cefTRIAXone 1 GM in D5W 55 ML IVPB SCH (14:43)
[2018-07-12 16:00] VITALS: BP 145/94
[2018-07-12 20:00] VITALS: BP 151/84
[2018-07-12] MEDS: Dyna-Hex 2% Top Sol 2oz TOPIC SCH (20:05)
--- NOTE | 2018-07-12 22:04 | General Progress Note ---
Assessment/Plan Assessment/Plan Assessment - dysphagia - respiratory failure - s/p PEG - anoxic encephalopathy - Seizure disorder - Cirrhosis Recommendations - continue TF - GT care - Elevate HOB - Follow labs Subjective Allergies: Coded Allergies: No Known Allergies (Unverified , 07/04/18) Subjective above noted d/w RN tolerating TF mild residual noted Objective Last 24 Hour Vital Signs Date Time Temp Pulse Resp B/P (MAP) Pulse Ox O2 Delivery O2 Flow Rate FiO2 07/12/18 21:05 99 17 30 07/12/18 20:00 97.7 100 20 151/84 (106) 100 07/12/18 20:00 100 07/12/18 20:00 Mechanical Ventilator 07/12/18 20:00 30 07/12/18 19:04 102 17 30 07/12/18 17:01 105 16 30 07/12/18 16:00 106 07/12/18 16:00 Mechanical Ventilator 07/12/18 16:00 98.4 108 16 145/94 (111) 100 07/12/18 16:00 30 07/12/18 14:40 114 19 30 07/12/18 12:40 109 20 30 07/12/18 12:00 98.2 104 22 178/98 (124) 99 07/12/18 12:00 30 07/12/18 12:00 106 07/12/18 12:00 Mechanical Ventilator 07/12/18 10:36 85 16 30 07/12/18 09:02 81 16 30 07/12/18 08:00 97.7 77 16 159/85 (109) 99 07/12/18 08:00 30 07/12/18 08:00 Mechanical Ventilator 07/12/18 07:51 78 07/12/18 06:50 75 16 30 07/12/18 05:13 80 16 30 07/12/18 04:00 86 07/12/18 04:00 97.6 85 23 139/75 (96) 100 07/12/18 04:00 81 07/12/18 04:00 Mechanical Ventilator 07/12/18 04:00 30 07/12/18 02:53 81 16 30 07/12/18 01:00 85 16 30 07/12/18 00:00 30 07/12/18 00:00 Mechanical Ventilator 07/12/18 00:00 98.7 82 20 160/90 (113) 100 07/11/18 23:00 84 16 30 Intake and Output 07/11/18 07/12/18 19:00 07:00 Intake Total 815 ml 460 ml Output Total 350 ml 800 ml Balance 465 ml -340 ml Intake Free Water 130 ml 100 ml IV Total 475 ml Tube Feeding 210 ml 360 ml Output Urine Total 350 ml 500 ml Stool Total 300 ml # Bowel Movements 2 4 Laboratory Tests 07/12/18 04:00: Total Creatine Kinase 160, Hepatitis A IgM Antibody [Pending], Hepatitis B Surface Antigen [Pending], Hepatitis B Core IgM Antibody [Pending], Hepatitis C Antibody [Pending] Height (Feet): 5 Height (Inches): 11.00 Weight (Pounds): 218 Objective Obtunded NCAT supple CTA RRR abd soft, (+) GT (+) contractures Manolo Okeefe MD Jul 12, 2018 22:04
[2018-07-13] VITALS: BP 158/95
[2018-07-13 04:00] VITALS: BP 159/96
[2018-07-13] MEDS: NovoLOG Insulin Flexpen SUBQ SCH ×4 (06:16→17:17)
[2018-07-13 07:25] VITALS: BP 159/89
[2018-07-13] MEDS: levETIRAcetam 500mg/5ml Liquid GT SCH ×2 (09:00→20:24)
[2018-07-13] MEDS: Aspirin Baby 81mg GT SCH (09:00)
[2018-07-13] MEDS: Heparin 5000 units/ml inj SUBQ SCH ×2 (09:02→20:24)
--- NOTE | 2018-07-13 09:02 | General Progress Note ---
Assessment/Plan Problem List: (1) Hyperglycemia ICD Codes: R73.9 - Hyperglycemia, unspecified SNOMED: 09302897 (2) Pleural effusion ICD Codes: J90 - Pleural effusion, not elsewhere classified SNOMED: 37496729 (3) Sepsis ICD Codes: A41.9 - Sepsis, unspecified organism SNOMED: 52378626 (4) UTI (urinary tract infection) ICD Codes: N39.0 - Urinary tract infection, site not specified SNOMED: 08510643 (5) Tracheostomy dependence ICD Codes: Z93.0 - Tracheostomy status SNOMED: 441129359, 445224263 (6) Elevated troponin I level ICD Codes: R74.8 - Abnormal levels of other serum enzymes SNOMED: 595741119 Status: stable, progressing Assessment/Plan bp rx adjusted iv abx per id gt feeds sz rx egg with encephalopathy- no szs follow up cultures monitor labs replace k skin care dc planning if ok with all Subjective ROS Limited/Unobtainable: Yes Constitutional: Reports: no symptoms HEENT: Reports: no symptoms Cardiovascular: Reports: no symptoms Respiratory: Reports: no symptoms Gastrointestinal/Abdominal: Reports: difficulty swallowing Genitourinary: Reports: no symptoms Neurologic/Psychiatric: Reports: pre-existing deficit Endocrine: Reports: no symptoms Hematologic/Lymphatic: Reports: no symptoms Allergies: Coded Allergies: No Known Allergies (Unverified , 07/04/18) All Systems: reviewed and negative except above Subjective gt replaced. no fever or chills. no szs. tolerating feeds, remains on iv abx. bp trending up Objective Last 24 Hour Vital Signs Date Time Temp Pulse Resp B/P (MAP) Pulse Ox O2 Delivery O2 Flow Rate FiO2 07/13/18 08:00 82 07/13/18 07:25 98.1 84 16 159/89 (112) 99 07/13/18 07:05 85 16 30 07/13/18 05:25 84 16 30 07/13/18 04:00 84 07/13/18 04:00 98.3 81 20 159/96 (117) 100 07/13/18 04:00 30 07/13/18 04:00 Mechanical Ventilator 07/13/18 03:00 86 16 30 07/13/18 01:06 92 16 30 07/13/18 00:00 90 07/13/18 00:00 98.2 98 20 158/95 (116) 100 07/13/18 00:00 Mechanical Ventilator 07/13/18 00:00 30 07/12/18 23:10 90 17 30 07/12/18 21:05 99 17 30 07/12/18 20:00 97.7 100 20 151/84 (106) 100 07/12/18 20:00 100 07/12/18 20:00 Mechanical Ventilator 07/12/18 20:00 30 07/12/18 19:04 102 17 30 07/12/18 17:01 105 16 30 07/12/18 16:00 106 07/12/18 16:00 Mechanical Ventilator 07/12/18 16:00 98.4 108 16 145/94 (111) 100 07/12/18 16:00 30 07/12/18 14:40 114 19 30 07/12/18 12:40 109 20 30 07/12/18 12:00 98.2 104 22 178/98 (124) 99 07/12/18 12:00 30 07/12/18 12:00 106 07/12/18 12:00 Mechanical Ventilator 07/12/18 10:36 85 16 30 07/12/18 09:02 81 16 30 Intake and Output 07/12/18 07/13/18 18:59 06:59 Intake Total 680 ml 545 ml Output Total 250 ml 600 ml Balance 430 ml -55 ml Intake Free Water 200 ml 30 ml IV Total 110 ml Tube Feeding 370 ml 515 ml Output Urine Total 200 ml 500 ml Stool Total 50 ml 100 ml Height (Feet): 5 Height (Inches): 11.00 Weight (Pounds): 218 Objective General Appearance: WD/WN, alert Neck: supple Cardiovascular: normal rate Respiratory/Chest: chest wall non-tender, lungs clear, normal breath sounds Abdomen: normal bowel sounds, non tender, soft Edema: no edema noted Arm (L), no edema noted Arm (R), no edema noted Leg (L), no edema noted Leg (R), no edema noted Pedal (L), no edema noted Pedal (R), no edema noted Generalized Neurologic: disoriented, unresponsive, aphasia Chano Galeana MD Jul 13, 2018 09:02
[2018-07-13] MEDS: Levemir Flexpen SUBQ SCH ×2 (09:03→17:18)
--- NOTE | 2018-07-13 10:41 | Pulmonology Progress Note ---
Assessment/Plan Assessment/Plan 1. Sepsis. 2. Pneumonia, 3. acute renal failure 4. Toxic metabolic encephalopathy. 5. Seizure disorder. 6. electrolyte imbalance 7. Functional quadriplegia. 8. Cirrhosis. 9. CAD 10. anoxia PLAN exam reviewed vent support as is antibiotics adjusted as needed monitor cultures and finalize antibiotics monitor respiratory status closely feeds and monitor for aspiration skin care ongoing position change close follow up stabilize and dc to snf hope next 1-2 days adjust diabetic meds and monitor sugars impression, plan, and exam edited and reviewed in detail care discussed with RN Subjective ROS Limited/Unobtainable: Yes Allergies: Coded Allergies: No Known Allergies (Unverified , 07/04/18) Subjective on vent reduced LOC care noted Objective Last 24 Hour Vital Signs Date Time Temp Pulse Resp B/P (MAP) Pulse Ox O2 Delivery O2 Flow Rate FiO2 07/13/18 10:10 70 159/89 07/13/18 09:29 70 16 30 07/13/18 08:00 82 07/13/18 08:00 30 07/13/18 08:00 Mechanical Ventilator 07/13/18 07:25 98.1 84 16 159/89 (112) 99 07/13/18 07:05 85 16 30 07/13/18 05:25 84 16 30 07/13/18 04:00 84 07/13/18 04:00 98.3 81 20 159/96 (117) 100 07/13/18 04:00 30 07/13/18 04:00 Mechanical Ventilator 07/13/18 03:00 86 16 30 07/13/18 01:06 92 16 30 07/13/18 00:00 90 07/13/18 00:00 98.2 98 20 158/95 (116) 100 07/13/18 00:00 Mechanical Ventilator 07/13/18 00:00 30 07/12/18 23:10 90 17 30 07/12/18 21:05 99 17 30 07/12/18 20:00 97.7 100 20 151/84 (106) 100 07/12/18 20:00 100 07/12/18 20:00 Mechanical Ventilator 07/12/18 20:00 30 07/12/18 19:04 102 17 30 07/12/18 17:01 105 16 30 07/12/18 16:00 106 07/12/18 16:00 Mechanical Ventilator 07/12/18 16:00 98.4 108 16 145/94 (111) 100 07/12/18 16:00 30 07/12/18 14:40 114 19 30 07/12/18 12:40 109 20 30 07/12/18 12:00 98.2 104 22 178/98 (124) 99 07/12/18 12:00 30 07/12/18 12:00 106 07/12/18 12:00 Mechanical Ventilator Intake and Output 07/12/18 07/13/18 18:59 06:59 Intake Total 680 ml 545 ml Output Total 250 ml 600 ml Balance 430 ml -55 ml Intake Free Water 200 ml 30 ml IV Total 110 ml Tube Feeding 370 ml 515 ml Output Urine Total 200 ml 500 ml Stool Total 50 ml 100 ml Objective WDWN poor LOC trach in place reduced breath sounds bilaterally with some rhonchi [id number] without MRG NABS nontender no HSM; GT no CC noted edema nonfocal, withdrawn reviewed and edited Microbiology Date/Time Source Procedure Growth Status 07/10/18 15:50 Sputum Gram Stain - Final Resulted 07/10/18 15:50 Sputum Culture - Preliminary Acinetobacter Baumannii Complx Gram Negative Bacillus 2 Resulted 07/12/18 04:00 Stool Clostridium difficile Toxin Assay - Final Complete Current Medications Medications (Trade) Dose Ordered Sig/Derrick Route PRN Reason Start Time Stop Time Status Last Admin Dose Admin Acetaminophen (Tylenol) 650 mg Q4H PRN GT Mild Pain/Temp > 100.5 07/04/18 19:42 08/03/18 19:40 Amlodipine Besylate (Norvasc) 5 mg DAILY GT 07/13/18 09:00 08/12/18 08:59 07/13/18 10:10 Aspirin (ASA) 81 mg DAILY GT 07/06/18 09:00 08/05/18 08:59 07/13/18 09:00 Ceftriaxone Sodium 1 gm/ Dextrose 55 ml @ 110 mls/hr Q24H IVPB 07/09/18 14:00 07/16/18 13:59 07/12/18 14:43 Chlorhexidine Gluconate (Gwendolyn-Hex 2%) 1 applic DAILY@2000 TOPIC 07/11/18 20:00 08/10/18 19:59 07/12/18 20:05 Clonidine HCl (Catapres Tab) 0.1 mg Q4H PRN GT For SBP>160 07/13/18 09:00 08/12/18 08:59 Dextrose (Dextrose 50%) 25 ml Q30M PRN IV Hypoglycemia 07/04/18 22:45 08/03/18 22:44 Dextrose (Dextrose 50%) 50 ml Q30M PRN IV Hypoglycemia 07/04/18 22:45 08/03/18 22:44 Heparin Sodium (Porcine) (Heparin 5000 units/ml) 5,000 units EVERY 12 HOURS SUBQ 07/04/18 21:00 08/03/18 20:59 07/13/18 09:02 Insulin Aspart (NovoLOG) EVERY 6 HOURS SUBQ 07/05/18 00:00 08/04/18 00:00 07/13/18 06:16 Insulin Detemir (Levemir) 15 units BID SUBQ 07/05/18 09:00 08/04/18 08:59 07/13/18 09:03 Lansoprazole (Prevacid) 30 mg DAILY GT 07/05/18 09:00 08/04/18 08:59 07/13/18 09:00 Levetiracetam (Keppra) 500 mg Q12HR GT 07/04/18 21:00 08/03/18 20:59 07/13/18 09:00 Bakari Montanez MD Jul 13, 2018 10:41
[2018-07-13 11:35] VITALS: BP 151/85
[2018-07-13] MEDS ORDERED: NS 275ml ONE (13:18)
[2018-07-13] MEDS ORDERED: Tubing IV Secondary IV ONE (13:18)
[2018-07-13] MEDS: cefTRIAXone 1 GM in D5W 55 ML IVPB SCH (14:30)
[2018-07-13 15:39] VITALS: BP 140/93
--- NOTE | 2018-07-13 17:34 | General Progress Note ---
Assessment/Plan Assessment/Plan Assessment - dysphagia - respiratory failure - s/p PEG - anoxic encephalopathy - Seizure disorder - Cirrhosis Recommendations - continue TF - GT care - Elevate HOB - Follow labs - d/c planning Subjective Allergies: Coded Allergies: No Known Allergies (Unverified , 07/04/18) Subjective above noted d/w RN tolerating TF no events overnight Objective Last 24 Hour Vital Signs Date Time Temp Pulse Resp B/P (MAP) Pulse Ox O2 Delivery O2 Flow Rate FiO2 07/13/18 16:35 91 18 30 07/13/18 16:00 Mechanical Ventilator 07/13/18 16:00 92 07/13/18 16:00 30 07/13/18 15:39 98.1 94 17 140/93 (109) 100 07/13/18 14:44 81 16 30 07/13/18 12:50 77 16 30 07/13/18 12:00 Mechanical Ventilator 07/13/18 12:00 30 07/13/18 12:00 79 07/13/18 11:35 98.1 74 16 151/85 (107) 100 07/13/18 10:55 77 16 30 07/13/18 10:10 70 159/89 07/13/18 09:29 70 16 30 07/13/18 08:00 82 07/13/18 08:00 30 07/13/18 08:00 Mechanical Ventilator 07/13/18 07:25 98.1 84 16 159/89 (112) 99 07/13/18 07:05 85 16 30 07/13/18 05:25 84 16 30 07/13/18 04:00 84 07/13/18 04:00 98.3 81 20 159/96 (117) 100 07/13/18 04:00 30 07/13/18 04:00 Mechanical Ventilator 07/13/18 03:00 86 16 30 07/13/18 01:06 92 16 30 07/13/18 00:00 90 07/13/18 00:00 98.2 98 20 158/95 (116) 100 07/13/18 00:00 Mechanical Ventilator 07/13/18 00:00 30 07/12/18 23:10 90 17 30 07/12/18 21:05 99 17 30 07/12/18 20:00 97.7 100 20 151/84 (106) 100 07/12/18 20:00 100 07/12/18 20:00 Mechanical Ventilator 07/12/18 20:00 30 07/12/18 19:04 102 17 30 Intake and Output 07/12/18 07/13/18 19:00 07:00 Intake Total 690 ml 570 ml Output Total 250 ml 600 ml Balance 440 ml -30 ml Intake Free Water 200 ml 50 ml IV Total 110 ml Tube Feeding 380 ml 520 ml Output Urine Total 200 ml 500 ml Stool Total 50 ml 100 ml Height (Feet): 5 Height (Inches): 11.00 Weight (Pounds): 218 Objective Obtunded NCAT supple CTA RRR abd soft, (+) GT (+) contractures Manolo Okeefe MD Jul 13, 2018 17:34
[2018-07-13 20:00] VITALS: BP 145/86
[2018-07-13] MEDS: Dyna-Hex 2% Top Sol 2oz TOPIC SCH (20:24)
[2018-07-14] VITALS: BP 136/82
[2018-07-14] MEDS: NovoLOG Insulin Flexpen SUBQ SCH ×5 (00:33→23:36)
[2018-07-14 04:00] VITALS: BP 128/69
[2018-07-14 08:00] VITALS: BP 144/85
--- NOTE | 2018-07-14 08:22 | Pulmonology Progress Note ---
Assessment/Plan Assessment/Plan 1. Sepsis. 2. Pneumonia, 3. acute renal failure 4. Toxic metabolic encephalopathy. 5. Seizure disorder. 6. electrolyte imbalance 7. Functional quadriplegia. 8. Cirrhosis. 9. CAD 10. anoxia PLAN exam reviewed and same vent support as is antibiotics adjusted as needed cultures noted- multiple monitor respiratory status closely feeds and monitor for aspiration skin care ongoing position change close follow up stabilize and dc to snf pending specialists clearance follow up blood sugars impression, plan, and exam edited and reviewed in detail care discussed with RN Subjective ROS Limited/Unobtainable: Yes Allergies: Coded Allergies: No Known Allergies (Unverified , 07/04/18) Subjective on vent reduced LOC care noted Objective Last 24 Hour Vital Signs Date Time Temp Pulse Resp B/P (MAP) Pulse Ox O2 Delivery O2 Flow Rate FiO2 07/14/18 07:10 75 16 30 07/14/18 05:22 74 16 30 07/14/18 04:00 79 07/14/18 04:00 98.1 78 18 128/69 (88) 99 07/14/18 04:00 Mechanical Ventilator 07/14/18 04:00 30 07/14/18 03:30 81 16 30 07/14/18 01:08 82 16 30 07/14/18 00:00 98.1 84 20 136/82 (100) 100 07/14/18 00:00 Mechanical Ventilator 07/14/18 00:00 30 07/14/18 00:00 85 07/13/18 23:30 85 16 30 07/13/18 21:30 89 16 30 07/13/18 20:00 97.2 94 17 145/86 (105) 99 07/13/18 20:00 97 07/13/18 20:00 Mechanical Ventilator 07/13/18 20:00 30 07/13/18 19:30 94 16 30 07/13/18 16:35 91 18 30 07/13/18 16:00 Mechanical Ventilator 07/13/18 16:00 92 07/13/18 16:00 30 07/13/18 15:39 98.1 94 17 140/93 (109) 100 07/13/18 14:44 81 16 30 07/13/18 12:50 77 16 30 07/13/18 12:00 Mechanical Ventilator 07/13/18 12:00 30 07/13/18 12:00 79 07/13/18 11:35 98.1 74 16 151/85 (107) 100 07/13/18 10:55 77 16 30 07/13/18 10:10 70 159/89 07/13/18 09:29 70 16 30 Intake and Output 07/13/18 07/14/18 19:00 07:00 Intake Total 565 ml 640 ml Output Total 650 ml 575 ml Balance -85 ml 65 ml Intake Free Water 60 ml 100 ml IV Total 55 ml Tube Feeding 450 ml 540 ml Output Urine Total 550 ml 275 ml Stool Total 100 ml 300 ml Objective WDWN poor LOC trach in place and clean reduced breath sounds bilaterally with minimal rhonchi [id number] without MRG NABS nontender no HSM; GT; no distention no CC noted edema nonfocal, withdrawn skin exam noted reviewed and edited Microbiology Date/Time Source Procedure Growth Status 07/12/18 17:30 Sputum Induced Gram Stain - Final Resulted 07/12/18 17:30 Sputum Culture - Preliminary Gram Negative Bacillus 1 Resulted 07/12/18 04:00 Stool Clostridium difficile Toxin Assay - Final Complete Current Medications Medications (Trade) Dose Ordered Sig/Derrick Route PRN Reason Start Time Stop Time Status Last Admin Dose Admin Acetaminophen (Tylenol) 650 mg Q4H PRN GT Mild Pain/Temp > 100.5 07/04/18 19:42 08/03/18 19:40 Amlodipine Besylate (Norvasc) 5 mg DAILY GT 07/13/18 09:00 08/12/18 08:59 07/13/18 10:10 Aspirin (ASA) 81 mg DAILY GT 07/06/18 09:00 08/05/18 08:59 07/13/18 09:00 Ceftriaxone Sodium 1 gm/ Dextrose 55 ml @ 110 mls/hr Q24H IVPB 07/09/18 14:00 07/16/18 13:59 07/13/18 14:30 Chlorhexidine Gluconate (Gwendolyn-Hex 2%) 1 applic DAILY@1999 TOPIC 07/11/18 20:00 08/10/18 19:59 07/13/18 20:24 Clonidine HCl (Catapres Tab) 0.1 mg Q4H PRN GT For SBP>160 07/13/18 09:00 08/12/18 08:59 Dextrose (Dextrose 50%) 25 ml Q30M PRN IV Hypoglycemia 07/04/18 22:45 08/03/18 22:44 Dextrose (Dextrose 50%) 50 ml Q30M PRN IV Hypoglycemia 07/04/18 22:45 08/03/18 22:44 Heparin Sodium (Porcine) (Heparin 5000 units/ml) 5,000 units EVERY 12 HOURS SUBQ 07/04/18 21:00 08/03/18 20:59 07/13/18 20:24 Insulin Aspart (NovoLOG) EVERY 6 HOURS SUBQ 07/05/18 00:00 08/04/18 00:00 07/14/18 05:02 Insulin Detemir (Levemir) 15 units BID SUBQ 07/05/18 09:00 08/04/18 08:59 07/13/18 17:18 Lansoprazole (Prevacid) 30 mg DAILY GT 07/05/18 09:00 08/04/18 08:59 07/13/18 09:00 Levetiracetam (Keppra) 500 mg Q12HR GT 07/04/18 21:00 08/03/18 20:59 07/13/18 20:24 Bakari Montanez MD Jul 14, 2018 08:22
[2018-07-14] MEDS: Aspirin Baby 81mg GT SCH (08:31)
[2018-07-14] MEDS: levETIRAcetam 500mg/5ml Liquid GT SCH ×2 (08:31→21:10)
[2018-07-14] MEDS: Levemir Flexpen SUBQ SCH ×2 (08:33→18:49)
[2018-07-14] MEDS: Heparin 5000 units/ml inj SUBQ SCH ×2 (08:33→21:11)
--- NOTE | 2018-07-14 08:36 | General Progress Note ---
Assessment/Plan Problem List: (1) Hyperglycemia ICD Codes: R73.9 - Hyperglycemia, unspecified SNOMED: 58606294 (2) Pleural effusion ICD Codes: J90 - Pleural effusion, not elsewhere classified SNOMED: 73924933 (3) Sepsis ICD Codes: A41.9 - Sepsis, unspecified organism SNOMED: 95019359 (4) UTI (urinary tract infection) ICD Codes: N39.0 - Urinary tract infection, site not specified SNOMED: 28450034 (5) Tracheostomy dependence ICD Codes: Z93.0 - Tracheostomy status SNOMED: 563176467, 423912962 (6) Elevated troponin I level ICD Codes: R74.8 - Abnormal levels of other serum enzymes SNOMED: 124085703 Status: stable, progressing Assessment/Plan bp rx as is iv abx per id gt feeds sz rx egg with encephalopathy- no szs follow up cultures monitor labs skin care dc planning if ok with all Subjective ROS Limited/Unobtainable: Yes Constitutional: Reports: malaise, weakness HEENT: Reports: no symptoms Cardiovascular: Reports: no symptoms Respiratory: Reports: no symptoms Gastrointestinal/Abdominal: Reports: difficulty swallowing Genitourinary: Reports: no symptoms Neurologic/Psychiatric: Reports: pre-existing deficit, seizure Endocrine: Reports: no symptoms Hematologic/Lymphatic: Reports: no symptoms Allergies: Coded Allergies: No Known Allergies (Unverified , 07/04/18) All Systems: reviewed and negative except above Subjective no events, no change. nonverbal at baseline. tolerating feeds, no fevers. bp better controlled Objective Last 24 Hour Vital Signs Date Time Temp Pulse Resp B/P (MAP) Pulse Ox O2 Delivery O2 Flow Rate FiO2 07/14/18 08:32 71 145/88 07/14/18 07:10 75 16 30 07/14/18 05:22 74 16 30 07/14/18 04:00 79 07/14/18 04:00 98.1 78 18 128/69 (88) 99 07/14/18 04:00 Mechanical Ventilator 07/14/18 04:00 30 07/14/18 03:30 81 16 30 07/14/18 01:08 82 16 30 07/14/18 00:00 98.1 84 20 136/82 (100) 100 07/14/18 00:00 Mechanical Ventilator 07/14/18 00:00 30 07/14/18 00:00 85 07/13/18 23:30 85 16 30 07/13/18 21:30 89 16 30 07/13/18 20:00 97.2 94 17 145/86 (105) 99 07/13/18 20:00 97 07/13/18 20:00 Mechanical Ventilator 07/13/18 20:00 30 07/13/18 19:30 94 16 30 07/13/18 16:35 91 18 30 07/13/18 16:00 Mechanical Ventilator 07/13/18 16:00 92 07/13/18 16:00 30 07/13/18 15:39 98.1 94 17 140/93 (109) 100 07/13/18 14:44 81 16 30 07/13/18 12:50 77 16 30 07/13/18 12:00 Mechanical Ventilator 07/13/18 12:00 30 07/13/18 12:00 79 07/13/18 11:35 98.1 74 16 151/85 (107) 100 07/13/18 10:55 77 16 30 07/13/18 10:10 70 159/89 07/13/18 09:29 70 16 30 Intake and Output 07/13/18 07/14/18 18:59 06:59 Intake Total 585 ml 640 ml Output Total 650 ml 575 ml Balance -65 ml 65 ml Intake Free Water 80 ml 100 ml IV Total 55 ml Tube Feeding 450 ml 540 ml Output Urine Total 550 ml 275 ml Stool Total 100 ml 300 ml Height (Feet): 5 Height (Inches): 11.00 Weight (Pounds): 218 Objective General Appearance: WD/WN, alert Neck: supple Cardiovascular: normal rate Respiratory/Chest: chest wall non-tender, lungs clear, normal breath sounds Abdomen: normal bowel sounds, non tender, soft Edema: no edema noted Arm (L), no edema noted Arm (R), no edema noted Leg (L), no edema noted Leg (R), no edema noted Pedal (L), no edema noted Pedal (R), no edema noted Generalized Neurologic: disoriented, unresponsive, aphasia Chano Galeana MD Jul 14, 2018 08:36
--- NOTE | 2018-07-14 08:39 | Infectious Diseases Prog Note ---
Assessment/Plan Assessment/Plan A: 1. pneumonia, atelectasis Acinetobacter & Pseudomonas 2. e.coli UTI 3. leucocytosis resolved 4. respiratory failure on ventilator 5. diabetes mellitus P 1. change ceftriaxone to Ceftazidim 2. will follow up cultures Subjective ROS Limited/Unobtainable: Yes Gastrointestinal/Abdominal: Reports: diarrhea Allergies: Coded Allergies: No Known Allergies (Unverified , 07/04/18) Objective Vital Signs Last 24 Hour Vital Signs Date Time Temp Pulse Resp B/P (MAP) Pulse Ox O2 Delivery O2 Flow Rate FiO2 07/14/18 08:32 71 145/88 07/14/18 07:10 75 16 30 07/14/18 05:22 74 16 30 07/14/18 04:00 79 07/14/18 04:00 98.1 78 18 128/69 (88) 99 07/14/18 04:00 Mechanical Ventilator 07/14/18 04:00 30 07/14/18 03:30 81 16 30 07/14/18 01:08 82 16 30 07/14/18 00:00 98.1 84 20 136/82 (100) 100 07/14/18 00:00 Mechanical Ventilator 07/14/18 00:00 30 07/14/18 00:00 85 07/13/18 23:30 85 16 30 07/13/18 21:30 89 16 30 07/13/18 20:00 97.2 94 17 145/86 (105) 99 07/13/18 20:00 97 07/13/18 20:00 Mechanical Ventilator 07/13/18 20:00 30 07/13/18 19:30 94 16 30 07/13/18 16:35 91 18 30 07/13/18 16:00 Mechanical Ventilator 07/13/18 16:00 92 07/13/18 16:00 30 07/13/18 15:39 98.1 94 17 140/93 (109) 100 07/13/18 14:44 81 16 30 07/13/18 12:50 77 16 30 07/13/18 12:00 Mechanical Ventilator 07/13/18 12:00 30 07/13/18 12:00 79 07/13/18 11:35 98.1 74 16 151/85 (107) 100 07/13/18 10:55 77 16 30 07/13/18 10:10 70 159/89 07/13/18 09:29 70 16 30 Height (Feet): 5 Height (Inches): 11.00 Weight (Pounds): 218 HEENT: status post trach Respiratory/Chest: lungs clear, other - on ventilator Cardiovascular: normal rate, other - R arm PICC line Abdomen: soft, non tender, other - GT & rectal tube Extremities: other - edema Neurologic/Psychiatric: unresponsiveness Microbiology Date/Time Source Procedure Growth Status 07/12/18 17:30 Sputum Induced Gram Stain - Final Resulted 07/12/18 17:30 Sputum Culture - Preliminary Gram Negative Bacillus 1 Resulted 07/12/18 04:00 Stool Clostridium difficile Toxin Assay - Final Complete Current Medications Medications (Trade) Dose Ordered Sig/Derrick Route PRN Reason Start Time Stop Time Status Last Admin Dose Admin Acetaminophen (Tylenol) 650 mg Q4H PRN GT Mild Pain/Temp > 100.5 07/04/18 19:42 08/03/18 19:40 Amlodipine Besylate (Norvasc) 5 mg DAILY GT 07/13/18 09:00 08/12/18 08:59 07/14/18 08:32 Aspirin (ASA) 81 mg DAILY GT 07/06/18 09:00 08/05/18 08:59 07/14/18 08:31 Ceftriaxone Sodium 1 gm/ Dextrose 55 ml @ 110 mls/hr Q24H IVPB 07/09/18 14:00 07/16/18 13:59 07/13/18 14:30 Chlorhexidine Gluconate (Gwendolyn-Hex 2%) 1 applic DAILY@2000 TOPIC 07/11/18 20:00 08/10/18 19:59 07/13/18 20:24 Clonidine HCl (Catapres Tab) 0.1 mg Q4H PRN GT For SBP>160 07/13/18 09:00 08/12/18 08:59 Dextrose (Dextrose 50%) 25 ml Q30M PRN IV Hypoglycemia 07/04/18 22:45 08/03/18 22:44 Dextrose (Dextrose 50%) 50 ml Q30M PRN IV Hypoglycemia 07/04/18 22:45 08/03/18 22:44 Heparin Sodium (Porcine) (Heparin 5000 units/ml) 5,000 units EVERY 12 HOURS SUBQ 07/04/18 21:00 08/03/18 20:59 07/14/18 08:33 Insulin Aspart (NovoLOG) EVERY 6 HOURS SUBQ 07/05/18 00:00 08/04/18 00:00 07/14/18 05:02 Insulin Detemir (Levemir) 15 units BID SUBQ 07/05/18 09:00 08/04/18 08:59 07/14/18 08:33 Lansoprazole (Prevacid) 30 mg DAILY GT 07/05/18 09:00 08/04/18 08:59 07/14/18 08:31 Levetiracetam (Keppra) 500 mg Q12HR GT 07/04/18 21:00 08/03/18 20:59 07/14/18 08:31 Carlos Amaro MD Jul 14, 2018 08:39
[2018-07-14] MEDS ORDERED: NS 275ml ONE (09:21)
[2018-07-14] MEDS: CefTAZidime 1 GM in D5W 55 ML IV SCH ×2 (10:35→21:10)
--- NOTE | 2018-07-14 10:52 | General Progress Note ---
Assessment/Plan Assessment/Plan Assessment - dysphagia - respiratory failure - s/p PEG - anoxic encephalopathy - Seizure disorder - Cirrhosis Recommendations - continue TF - GT care - Elevate HOB - Follow labs - d/c planning per PMD Subjective Allergies: Coded Allergies: No Known Allergies (Unverified , 07/04/18) Subjective above noted d/w RN tolerating TF no events overnight Objective Last 24 Hour Vital Signs Date Time Temp Pulse Resp B/P (MAP) Pulse Ox O2 Delivery O2 Flow Rate FiO2 07/14/18 10:32 73 16 30 07/14/18 08:42 72 16 30 07/14/18 08:32 71 145/88 07/14/18 08:00 30 07/14/18 08:00 97.7 72 16 144/85 (104) 99 07/14/18 08:00 Mechanical Ventilator 07/14/18 08:00 73 07/14/18 07:10 75 16 30 07/14/18 05:22 74 16 30 07/14/18 04:00 79 07/14/18 04:00 98.1 78 18 128/69 (88) 99 07/14/18 04:00 Mechanical Ventilator 07/14/18 04:00 30 07/14/18 03:30 81 16 30 07/14/18 01:08 82 16 30 07/14/18 00:00 98.1 84 20 136/82 (100) 100 07/14/18 00:00 Mechanical Ventilator 07/14/18 00:00 30 07/14/18 00:00 85 07/13/18 23:30 85 16 30 07/13/18 21:30 89 16 30 07/13/18 20:00 97.2 94 17 145/86 (105) 99 07/13/18 20:00 97 07/13/18 20:00 Mechanical Ventilator 07/13/18 20:00 30 07/13/18 19:30 94 16 30 07/13/18 16:35 91 18 30 07/13/18 16:00 Mechanical Ventilator 07/13/18 16:00 92 07/13/18 16:00 30 07/13/18 15:39 98.1 94 17 140/93 (109) 100 07/13/18 14:44 81 16 30 07/13/18 12:50 77 16 30 07/13/18 12:00 Mechanical Ventilator 07/13/18 12:00 30 07/13/18 12:00 79 07/13/18 11:35 98.1 74 16 151/85 (107) 100 07/13/18 10:55 77 16 30 Intake and Output 07/13/18 07/14/18 18:59 06:59 Intake Total 585 ml 640 ml Output Total 650 ml 575 ml Balance -65 ml 65 ml Intake Free Water 80 ml 100 ml IV Total 55 ml Tube Feeding 450 ml 540 ml Output Urine Total 550 ml 275 ml Stool Total 100 ml 300 ml Height (Feet): 5 Height (Inches): 11.00 Weight (Pounds): 218 Objective Obtunded NCAT supple CTA RRR abd soft, (+) GT (+) contractures Manolo Okeefe MD Jul 14, 2018 10:52
[2018-07-14 11:17] LABS: BASOPHILS % (AUTO) 0.6 % (0.0-2.0); EOSINOPHILS % (AUTO) 4.4 % (0.0-3.0); HEMATOCRIT 30.2 % (42.0-52.0); HEMOGLOBIN 9.7 G/DL (14.2-18.0); LYMPHOCYTES % (AUTO) 37.5 % (20.0-45.0); MEAN CORPUSCULAR VOLUME 84 FL (80-99); MONOCYTES % (AUTO) 7.6 % (1.0-10.0); NEUTROPHILS % (AUTO) 49.8 % (45.0-75.0); PLATELET COUNT 196 K/UL (150-450); RED BLOOD COUNT 3.59 M/UL (4.70-6.10); WHITE BLOOD COUNT 9.6 K/UL (4.8-10.8)
[2018-07-14 11:29] LABS: ALANINE AMINOTRANSFERASE 29 U/L (12-78); ALBUMIN 1.9 G/DL (3.4-5.0); ALBUMIN/GLOBULIN RATIO 0.3 (1.0-2.7); ALKALINE PHOSPHATASE 66 U/L (46-116); ANION GAP 4 mmol/L (5-15); ASPARTATE AMINO TRANSFERASE 49 U/L (15-37); BILIRUBIN,TOTAL 0.3 MG/DL (0.2-1.0); BLOOD UREA NITROGEN 15 mg/dL (7-18); CALCIUM 8.3 MG/DL (8.5-10.1); CARBON DIOXIDE 32 MMOL/L (21-32); CHLORIDE 108 MMOL/L (98-107); POTASSIUM 2.9 MMOL/L (3.5-5.1); SODIUM 144 MMOL/L (136-145)
[2018-07-14 11:54] VITALS: BP 159/95
[2018-07-14] MEDS ORDERED: Tubing IV Secondary IV ONE (15:11)
[2018-07-14 16:00] VITALS: BP 143/94
[2018-07-14 20:00] VITALS: BP 151/86
[2018-07-14] MEDS: Dyna-Hex 2% Top Sol 2oz TOPIC SCH (21:10)
[2018-07-15] VITALS: BP 142/85
[2018-07-15 04:00] VITALS: BP 127/63
[2018-07-15 04:54] LABS: ANION GAP 4 mmol/L (5-15); BLOOD UREA NITROGEN 15 mg/dL (7-18); CALCIUM 8.1 MG/DL (8.5-10.1); CARBON DIOXIDE 32 MMOL/L (21-32); CHLORIDE 107 MMOL/L (98-107); CREATININE 1.1 MG/DL (0.55-1.30); POTASSIUM 3.4 MMOL/L (3.5-5.1); SODIUM 142 MMOL/L (136-145)
[2018-07-15] MEDS: CefTAZidime 1 GM in D5W 55 ML IV SCH ×3 (06:03→21:15)
[2018-07-15] MEDS: NovoLOG Insulin Flexpen SUBQ SCH ×3 (06:04→17:40)
[2018-07-15 08:00] VITALS: BP 164/98
--- NOTE | 2018-07-15 08:20 | General Progress Note ---
Assessment/Plan Problem List: (1) Hyperglycemia ICD Codes: R73.9 - Hyperglycemia, unspecified SNOMED: 62035685 (2) Pleural effusion ICD Codes: J90 - Pleural effusion, not elsewhere classified SNOMED: 27487140 (3) Sepsis ICD Codes: A41.9 - Sepsis, unspecified organism SNOMED: 56277840 (4) UTI (urinary tract infection) ICD Codes: N39.0 - Urinary tract infection, site not specified SNOMED: 33099453 (5) Tracheostomy dependence ICD Codes: Z93.0 - Tracheostomy status SNOMED: 642186617, 140036583 (6) Elevated troponin I level ICD Codes: R74.8 - Abnormal levels of other serum enzymes SNOMED: 107493373 Status: stable, progressing Assessment/Plan cont abx per id vent support resp rx gt feeds replace lytes BP rx sz rx dc planning once cleared by ID Subjective ROS Limited/Unobtainable: No Constitutional: Reports: malaise, weakness HEENT: Reports: no symptoms Cardiovascular: Reports: no symptoms Respiratory: Reports: no symptoms Gastrointestinal/Abdominal: Reports: difficulty swallowing Genitourinary: Reports: no symptoms Neurologic/Psychiatric: Reports: pre-existing deficit, seizure Endocrine: Reports: no symptoms Hematologic/Lymphatic: Reports: anemia Allergies: Coded Allergies: No Known Allergies (Unverified , 07/04/18) All Systems: reviewed and negative except above Subjective no events, no change. nonverbal at baseline. tolerating feeds, no fevers. bp better controlled abx adjusted by ID Objective Last 24 Hour Vital Signs Date Time Temp Pulse Resp B/P (MAP) Pulse Ox O2 Delivery O2 Flow Rate FiO2 07/15/18 05:08 83 20 30 07/15/18 04:00 98.2 80 16 127/63 (84) 100 07/15/18 04:00 30 07/15/18 04:00 Mechanical Ventilator 07/15/18 04:00 71 07/15/18 02:44 72 16 30 07/15/18 01:32 78 17 30 07/15/18 00:00 77 07/15/18 00:00 98.1 76 16 142/85 (104) 100 07/15/18 00:00 Mechanical Ventilator 07/15/18 00:00 30 07/14/18 22:33 80 16 30 11/4/18 21:08 84 17 30 07/14/18 20:00 Mechanical Ventilator 07/14/18 20:00 30 07/14/18 20:00 83 07/14/18 20:00 98.0 82 16 151/86 (107) 100 07/14/18 18:51 81 16 30 07/14/18 16:35 84 16 30 07/14/18 16:00 Mechanical Ventilator 07/14/18 16:00 98.2 77 16 143/94 (110) 100 07/14/18 16:00 72 07/14/18 16:00 30 07/14/18 15:00 79 16 30 07/14/18 14:35 85 16 Mechanical Ventilator 30 07/14/18 13:28 75 16 30 07/14/18 12:00 Mechanical Ventilator 07/14/18 12:00 81 07/14/18 12:00 30 07/14/18 11:54 97.5 77 16 159/95 (116) 100 07/14/18 10:32 73 16 30 07/14/18 08:42 72 16 30 07/14/18 08:32 71 145/88 Intake and Output 07/14/18 07/15/18 19:00 07:00 Intake Total 665 ml 650 ml Output Total 550 ml 650 ml Balance 115 ml 0 ml Intake Free Water 70 ml 100 ml IV Total 55 ml 55 ml Tube Feeding 540 ml 495 ml Output Urine Total 500 ml 650 ml Stool Total 50 ml # Bowel Movements 50 Laboratory Tests 07/14/18 10:40: White Blood Count 9.6, Red Blood Count 3.59L, Hemoglobin 9.7L, Hematocrit 30.2L , Mean Corpuscular Volume 84, Mean Corpuscular Hemoglobin 27.0, Mean Corpuscular Hemoglobin Concent 32.1, Red Cell Distribution Width 16.0H, Platelet Count 196, Mean Platelet Volume 8.7, Neutrophils (%) (Auto) 49.8, Lymphocytes (%) (Auto) 37.5, Monocytes (%) (Auto) 7.6, Eosinophils (%) (Auto) 4.4H, Basophils (%) (Auto) 0.6, Sodium Level 144, Potassium Level 2.9L, Chloride Level 108H, Carbon Dioxide Level 32, Anion Gap 4L, Blood Urea Nitrogen 15, Creatinine 1.0, Estimat Glomerular Filtration Rate , Glucose Level 225H, Calcium Level 8.3L, Magnesium Level 1.8, Total Bilirubin 0.3, Aspartate Amino Transf (AST/SGOT) 49H, Alanine Aminotransferase (ALT/SGPT) 29, Alkaline Phosphatase 66, Total Protein 7.4, Albumin 1.9L, Globulin 5.5, Albumin/Globulin Ratio 0.3L 07/15/18 03:20: Sodium Level 142, Potassium Level 3.4L, Chloride Level 107, Carbon Dioxide Level 32, Anion Gap 4L, Blood Urea Nitrogen 15, Creatinine 1.1, Estimat Glomerular Filtration Rate , Glucose Level 229H, Calcium Level 8.1L Height (Feet): 5 Height (Inches): 11.00 Weight (Pounds): 218 Objective General Appearance: WD/WN, alert Neck: supple Cardiovascular: normal rate Respiratory/Chest: chest wall non-tender, lungs clear, normal breath sounds Abdomen: normal bowel sounds, non tender, soft Edema: no edema noted Arm (L), no edema noted Arm (R), no edema noted Leg (L), no edema noted Leg (R), no edema noted Pedal (L), no edema noted Pedal (R), no edema noted Generalized Neurologic: disoriented, unresponsive, aphasia Chano Galeana MD Jul 15, 2018 08:20
--- NOTE | 2018-07-15 08:59 | Pulmonology Progress Note ---
Assessment/Plan Assessment/Plan 1. Sepsis. 2. Pneumonia, 3. acute renal failure 4. Toxic metabolic encephalopathy. 5. Seizure disorder. 6. electrolyte imbalance 7. Functional quadriplegia. 8. Cirrhosis. 9. CAD 10. anoxia PLAN exam reviewed and same maintain on AC antibiotics per ID and clearance monitor respiratory status closely feeds and monitor for aspiration skin care ongoing position change close follow up stabilize and dc to snf follow up blood sugars and adjust as needed impression, plan, and exam edited and reviewed in detail care discussed with RN Subjective ROS Limited/Unobtainable: Yes Allergies: Coded Allergies: No Known Allergies (Unverified , 07/04/18) Subjective on vent reduced LOC care noted awaiting ID clearance Objective Last 24 Hour Vital Signs Date Time Temp Pulse Resp B/P (MAP) Pulse Ox O2 Delivery O2 Flow Rate FiO2 07/15/18 05:08 83 20 30 07/15/18 04:00 98.2 80 16 127/63 (84) 100 07/15/18 04:00 30 07/15/18 04:00 Mechanical Ventilator 07/15/18 04:00 71 07/15/18 02:44 72 16 30 07/15/18 01:32 78 17 30 07/15/18 00:00 77 07/15/18 00:00 98.1 76 16 142/85 (104) 100 07/15/18 00:00 Mechanical Ventilator 07/15/18 00:00 30 07/14/18 22:33 80 16 30 07/14/18 21:08 84 17 30 07/14/18 20:00 Mechanical Ventilator 07/14/18 20:00 30 07/14/18 20:00 83 07/14/18 20:00 98.0 82 16 151/86 (107) 100 07/14/18 18:51 81 16 30 07/14/18 16:35 84 16 30 07/14/18 16:00 Mechanical Ventilator 07/14/18 16:00 98.2 77 16 143/94 (110) 100 07/14/18 16:00 72 07/14/18 16:00 30 07/14/18 15:00 79 16 30 07/14/18 14:35 85 16 Mechanical Ventilator 30 07/14/18 13:28 75 16 30 07/14/18 12:00 Mechanical Ventilator 07/14/18 12:00 81 07/14/18 12:00 30 07/14/18 11:54 97.5 77 16 159/95 (116) 100 07/14/18 10:32 73 16 30 Intake and Output 07/14/18 07/15/18 19:00 07:00 Intake Total 665 ml 650 ml Output Total 550 ml 650 ml Balance 115 ml 0 ml Intake Free Water 70 ml 100 ml IV Total 55 ml 55 ml Tube Feeding 540 ml 495 ml Output Urine Total 500 ml 650 ml Stool Total 50 ml # Bowel Movements 50 Objective WDWN poor LOC trach in place and clean reduced breath sounds bilaterally with minimal rhonchi [id number] without MRG NABS nontender no HSM; GT; no distention no CC persistent edema nonfocal, withdrawn skin exam noted reviewed and edited Microbiology Date/Time Source Procedure Growth Status 07/12/18 17:30 Sputum Induced Gram Stain - Final Complete 07/12/18 17:30 Sputum Culture - Final Acinetobacter Baumannii Complx Complete Laboratory Tests 07/14/18 10:40: White Blood Count 9.6, Red Blood Count 3.59L, Hemoglobin 9.7L, Hematocrit 30.2L , Mean Corpuscular Volume 84, Mean Corpuscular Hemoglobin 27.0, Mean Corpuscular Hemoglobin Concent 32.1, Red Cell Distribution Width 16.0H, Platelet Count 196, Mean Platelet Volume 8.7, Neutrophils (%) (Auto) 49.8, Lymphocytes (%) (Auto) 37.5, Monocytes (%) (Auto) 7.6, Eosinophils (%) (Auto) 4.4H, Basophils (%) (Auto) 0.6, Sodium Level 144, Potassium Level 2.9L, Chloride Level 108H, Carbon Dioxide Level 32, Anion Gap 4L, Blood Urea Nitrogen 15, Creatinine 1.0, Estimat Glomerular Filtration Rate , Glucose Level 225H, Calcium Level 8.3L, Magnesium Level 1.8, Total Bilirubin 0.3, Aspartate Amino Transf (AST/SGOT) 49H, Alanine Aminotransferase (ALT/SGPT) 29, Alkaline Phosphatase 66, Total Protein 7.4, Albumin 1.9L, Globulin 5.5, Albumin/Globulin Ratio 0.3L 07/15/18 03:20: Sodium Level 142, Potassium Level 3.4L, Chloride Level 107, Carbon Dioxide Level 32, Anion Gap 4L, Blood Urea Nitrogen 15, Creatinine 1.1, Estimat Glomerular Filtration Rate , Glucose Level 229H, Calcium Level 8.1L Current Medications Medications (Trade) Dose Ordered Sig/Derrick Route PRN Reason Start Time Stop Time Status Last Admin Dose Admin Acetaminophen (Tylenol) 650 mg Q4H PRN GT Mild Pain/Temp > 100.5 07/04/18 19:42 08/03/18 19:40 Amlodipine Besylate (Norvasc) 5 mg DAILY GT 07/13/18 09:00 08/12/18 08:59 07/14/18 08:32 Aspirin (ASA) 81 mg DAILY GT 07/06/18 09:00 08/05/18 08:59 07/14/18 08:31 Ceftazidime 1 gm/ Dextrose 55 ml @ 110 mls/hr Q8HR IV 07/14/18 10:00 07/21/18 09:59 07/15/18 06:03 Chlorhexidine Gluconate (Gwendolyn-Hex 2%) 1 applic DAILY@2000 TOPIC 07/11/18 20:00 08/10/18 19:59 07/14/18 21:10 Clonidine HCl (Catapres Tab) 0.1 mg Q4H PRN GT For SBP>160 07/13/18 09:00 08/12/18 08:59 Dextrose (Dextrose 50%) 25 ml Q30M PRN IV Hypoglycemia 07/04/18 22:45 08/03/18 22:44 Dextrose (Dextrose 50%) 50 ml Q30M PRN IV Hypoglycemia 07/04/18 22:45 08/03/18 22:44 Heparin Sodium (Porcine) (Heparin 5000 units/ml) 5,000 units EVERY 12 HOURS SUBQ 07/04/18 21:00 08/03/18 20:59 07/14/18 21:11 Insulin Aspart (NovoLOG) EVERY 6 HOURS SUBQ 07/05/18 00:00 08/04/18 00:00 07/15/18 06:04 Insulin Detemir (Levemir) 15 units BID SUBQ 07/05/18 09:00 08/04/18 08:59 07/14/18 18:49 Lansoprazole (Prevacid) 30 mg DAILY GT 07/05/18 09:00 08/04/18 08:59 07/14/18 08:31 Levetiracetam (Keppra) 500 mg Q12HR GT 07/04/18 21:00 08/03/18 20:59 07/14/18 21:10 Potassium Chloride (K-Dur) 40 meq ONCE ORAL 07/15/18 08:30 07/15/18 09:30 Bakari Montanez MD Jul 15, 2018 08:59
[2018-07-15] MEDS: Heparin 5000 units/ml inj SUBQ SCH ×2 (09:50→20:35)
[2018-07-15] MEDS: Levemir Flexpen SUBQ SCH ×2 (09:51→17:39)
[2018-07-15] MEDS: Aspirin Baby 81mg GT SCH (09:52)
[2018-07-15] MEDS: levETIRAcetam 500mg/5ml Liquid GT SCH ×2 (09:53→20:33)
[2018-07-15 11:15] VITALS: BP 154/88
--- NOTE | 2018-07-15 11:21 | Infectious Diseases Prog Note ---
"Assessment/Plan Assessment/Plan antibiotics : ceftazidime A 1. acenitobacter | pseudomonas pneumonia 2. e.coli UTI 3. leucocytosis resolved 4. respiratory failure 5. diabetes mellitus P 1. continue ceftazidime 5 more days 2. will follow up cultures Subjective ROS Limited/Unobtainable: Yes Allergies: Coded Allergies: No Known Allergies (Unverified , 07/04/18) Objective Vital Signs Last 24 Hour Vital Signs Date Time Temp Pulse Resp B/P (MAP) Pulse Ox O2 Delivery O2 Flow Rate FiO2 07/15/18 11:17 30 07/15/18 11:15 98.0 83 18 154/88 (110) 100 07/15/18 09:53 77 164/98 07/15/18 08:00 Mechanical Ventilator 07/15/18 08:00 30 07/15/18 08:00 98.1 77 18 164/98 (120) 99 07/15/18 08:00 77 07/15/18 05:08 83 20 30 07/15/18 04:00 98.2 80 16 127/63 (84) 100 07/15/18 04:00 30 07/15/18 04:00 Mechanical Ventilator 07/15/18 04:00 71 07/15/18 02:44 72 16 30 07/15/18 01:32 78 17 30 07/15/18 00:00 77 07/15/18 00:00 98.1 76 16 142/85 (104) 100 07/15/18 00:00 Mechanical Ventilator 07/15/18 00:00 30 07/14/18 22:33 80 16 30 07/14/18 21:08 84 17 30 07/14/18 20:00 Mechanical Ventilator 07/14/18 20:00 30 07/14/18 20:00 83 07/14/18 20:00 98.0 82 16 151/86 (107) 100 07/14/18 18:51 81 16 30 07/14/18 16:35 84 16 30 07/14/18 16:00 Mechanical Ventilator 07/14/18 16:00 98.2 77 16 143/94 (110) 100 07/14/18 16:00 72 07/14/18 16:00 30 07/14/18 15:00 79 16 30 07/14/18 14:35 85 16 Mechanical Ventilator 30 07/14/18 13:28 75 16 30 07/14/18 12:00 Mechanical Ventilator 07/14/18 12:00 81 07/14/18 12:00 30 07/14/18 11:54 97.5 77 16 159/95 (116) 100 Height (Feet): 5 Height (Inches): 11.00 Weight (Pounds): 218 HEENT: status post trach Respiratory/Chest: lungs clear Cardiovascular: normal rate, regular rhythm, no gallop/murmur Abdomen: soft, non tender, other - GT Extremities: no edema, other - right arm PICC Microbiology Date/Time Source Procedure Growth Status 07/12/18 17:30 Sputum Induced Gram Stain - Final Complete 07/12/18 17:30 Sputum Culture - Final Acinetobacter Baumannii Complx Complete Laboratory Tests Test 07/15/18 03:20 Sodium Level 142 MMOL/L (136-145) Potassium Level 3.4 MMOL/L (3.5-5.1) L Chloride Level 107 MMOL/L (98-107) Carbon Dioxide Level 32 MMOL/L (21-32) Anion Gap 4 mmol/L (5-15) L Blood Urea Nitrogen 15 mg/dL (7-18) Creatinine 1.1 MG/DL (0.55-1.30) Estimat Glomerular Filtration Rate mL/min (>60) Glucose Level 229 MG/DL (74-106) H Calcium Level 8.1 MG/DL (8.5-10.1) L Current Medications Medications (Trade) Dose Ordered Sig/Derrick Route PRN Reason Start Time Stop Time Status Last Admin Dose Admin Acetaminophen (Tylenol) 650 mg Q4H PRN GT Mild Pain/Temp > 100.5 07/04/18 19:42 08/03/18 19:40 Amlodipine Besylate (Norvasc) 5 mg DAILY GT 07/13/18 09:00 08/12/18 08:59 07/15/18 09:53 Aspirin (ASA) 81 mg DAILY GT 07/06/18 09:00 08/05/18 08:59 07/15/18 09:52 Ceftazidime 1 gm/ Dextrose 55 ml @ 110 mls/hr Q8HR IV 07/14/18 10:00 07/21/18 09:59 07/15/18 06:03 Chlorhexidine Gluconate (Gwendolyn-Hex 2%) 1 applic DAILY@2000 TOPIC 07/11/18 20:00 08/10/18 19:59 07/14/18 21:10 Clonidine HCl (Catapres Tab) 0.1 mg Q4H PRN GT For SBP>160 07/13/18 09:00 08/12/18 08:59 Dextrose (Dextrose 50%) 25 ml Q30M PRN IV Hypoglycemia 07/04/18 22:45 08/03/18 22:44 Dextrose (Dextrose 50%) 50 ml Q30M PRN IV Hypoglycemia 07/04/18 22:45 08/03/18 22:44 Heparin Sodium (Porcine) (Heparin 5000 units/ml) 5,000 units EVERY 12 HOURS SUBQ 07/04/18 21:00 08/03/18 20:59 07/15/18 09:50 Insulin Aspart (NovoLOG) EVERY 6 HOURS SUBQ 07/05/18 00:00 08/04/18 00:00 07/15/18 11:09 Insulin Detemir (Levemir) 15 units BID SUBQ 07/05/18 09:00 08/04/18 08:59 07/15/18 09:51 Lansoprazole (Prevacid) 30 mg DAILY GT 07/05/18 09:00 08/04/18 08:59 07/15/18 09:52 Levetiracetam (Keppra) 500 mg Q12HR GT 07/04/18 21:00 08/03/18 20:59 07/15/18 09:53 Rosalinda Guerrero MD Jul 15, 2018 11:21"
[2018-07-15 16:00] VITALS: BP 149/83
[2018-07-15 20:00] VITALS: BP 134/80
[2018-07-15] MEDS: Dyna-Hex 2% Top Sol 2oz TOPIC SCH (20:33)
--- NOTE | 2018-07-15 21:26 | General Progress Note ---
Assessment/Plan Assessment/Plan Assessment - dysphagia - respiratory failure - s/p PEG - anoxic encephalopathy - Seizure disorder - Cirrhosis Recommendations - continue TF - GT care - Elevate HOB - Follow labs - d/c planning per PMD Subjective Allergies: Coded Allergies: No Known Allergies (Unverified , 07/04/18) Subjective above noted d/w RN tolerating TF no events overnight Objective Last 24 Hour Vital Signs Date Time Temp Pulse Resp B/P (MAP) Pulse Ox O2 Delivery O2 Flow Rate FiO2 07/15/18 20:48 75 19 30 07/15/18 20:00 Mechanical Ventilator 07/15/18 20:00 98.2 75 20 134/80 (98) 100 07/15/18 20:00 78 07/15/18 20:00 30 07/15/18 17:04 93 16 30 07/15/18 16:00 30 07/15/18 16:00 Mechanical Ventilator 07/15/18 16:00 95 07/15/18 16:00 98.2 94 17 149/83 (105) 100 07/15/18 15:26 94 17 30 07/15/18 13:05 86 17 30 07/15/18 12:00 82 07/15/18 12:00 Mechanical Ventilator 07/15/18 11:17 30 07/15/18 11:15 98.0 83 18 154/88 (110) 100 07/15/18 10:30 81 15 30 07/15/18 09:53 77 164/98 07/15/18 08:36 79 16 30 07/15/18 08:00 Mechanical Ventilator 07/15/18 08:00 30 07/15/18 08:00 98.1 77 18 164/98 (120) 99 07/15/18 08:00 77 07/15/18 06:55 78 16 30 07/15/18 05:08 83 20 30 07/15/18 04:00 98.2 80 16 127/63 (84) 100 07/15/18 04:00 30 07/15/18 04:00 Mechanical Ventilator 07/15/18 04:00 71 07/15/18 02:44 72 16 30 07/15/18 01:32 78 17 30 07/15/18 00:00 77 07/15/18 00:00 98.1 76 16 142/85 (104) 100 11/5/18 00:00 Mechanical Ventilator 07/15/18 00:00 30 07/14/18 22:33 80 16 30 Intake and Output 07/14/18 07/15/18 19:00 07:00 Intake Total 665 ml 695 ml Output Total 550 ml 650 ml Balance 115 ml 45 ml Intake Free Water 70 ml 100 ml IV Total 55 ml 55 ml Tube Feeding 540 ml 540 ml Output Urine Total 500 ml 650 ml Stool Total 50 ml # Bowel Movements 50 Laboratory Tests 07/15/18 03:20: Sodium Level 142, Potassium Level 3.4L, Chloride Level 107, Carbon Dioxide Level 32, Anion Gap 4L, Blood Urea Nitrogen 15, Creatinine 1.1, Estimat Glomerular Filtration Rate , Glucose Level 229H, Calcium Level 8.1L Height (Feet): 5 Height (Inches): 11.00 Weight (Pounds): 218 Objective Obtunded NCAT supple CTA RRR abd soft, (+) GT (+) contractures Manolo Okeefe MD Jul 15, 2018 21:26
[2018-07-16] VITALS: BP 128/76
[2018-07-16] MEDS: NovoLOG Insulin Flexpen SUBQ SCH ×3 (00:10→13:28)
[2018-07-16 04:00] VITALS: BP 151/85
[2018-07-16] MEDS: CefTAZidime 1 GM in D5W 55 ML IV SCH ×2 (06:02→13:28)
[2018-07-16 08:00] VITALS: BP 136/93
[2018-07-16 08:32] LABS: ANION GAP 5 mmol/L (5-15); BLOOD UREA NITROGEN 16 mg/dL (7-18); CALCIUM 8.5 MG/DL (8.5-10.1); CARBON DIOXIDE 30 MMOL/L (21-32); CHLORIDE 106 MMOL/L (98-107); CREATININE 1.1 MG/DL (0.55-1.30); POTASSIUM 3.8 MMOL/L (3.5-5.1); SODIUM 141 MMOL/L (136-145)
[2018-07-16] MEDS ORDERED: ASPIRIN81 MG GT (08:36)
[2018-07-16] MEDS ORDERED: NORVASC5 MG GT (08:36)
[2018-07-16] MEDS ORDERED: CLONIDINE0.1 MG GT (08:36)
[2018-07-16] MEDS ORDERED: KEPPRA LIQ100 MG/1 M GT (08:36)
[2018-07-16] MEDS ORDERED: SODIUM CHLORIDE IVF (08:36)
[2018-07-16] MEDS ORDERED: LEVEMIR FL100 UNIT/1 SUBQ (08:36)
[2018-07-16] MEDS ORDERED: CEFTAZIDIME1 GM IJ (08:36)
[2018-07-16] MEDS ORDERED: D50w IV (08:36)
[2018-07-16] MEDS ORDERED: NOVOLOG100 UNITS1 SUBQ (08:36)
[2018-07-16] MEDS ORDERED: Acetaminophen GT (08:36)
[2018-07-16] MEDS ORDERED: LANSOPRAZOLE30 MG GT (08:36)
[2018-07-16] MEDS ORDERED: HIBICLENS118 ML TOPIC (08:36)
--- NOTE | 2018-07-16 08:52 | Pulmonology Progress Note ---
Assessment/Plan Assessment/Plan 1. Sepsis. 2. Pneumonia, 3. acute renal failure 4. Toxic metabolic encephalopathy. 5. Seizure disorder. 6. electrolyte imbalance 7. Functional quadriplegia. 8. Cirrhosis. 9. CAD 10. anoxia PLAN exam reviewed and same maintain on AC; no wean ID clearance monitor respiratory status closely feeds and monitor for aspiration skin care ongoing position change close follow up pulmonary stable for snf today follow up blood sugars and adjust as needed impression, plan, and exam edited and reviewed in detail care discussed with RN Subjective ROS Limited/Unobtainable: Yes Allergies: Coded Allergies: No Known Allergies (Unverified , 07/04/18) Subjective on vent reduced LOC care noted Objective Last 24 Hour Vital Signs Date Time Temp Pulse Resp B/P (MAP) Pulse Ox O2 Delivery O2 Flow Rate FiO2 07/16/18 08:34 89 17 30 07/16/18 08:00 98.2 88 21 136/93 (107) 100 07/16/18 06:47 85 16 30 07/16/18 05:08 77 16 30 07/16/18 04:00 97.5 77 22 151/85 (107) 99 07/16/18 04:00 77 07/16/18 04:00 30 07/16/18 04:00 Mechanical Ventilator 07/16/18 03:30 74 16 30 07/16/18 01:48 75 16 30 07/16/18 00:00 98.0 79 18 128/76 (93) 100 07/16/18 00:00 77 07/16/18 00:00 Mechanical Ventilator 07/15/18 23:45 75 16 30 07/15/18 21:46 77 16 30 07/15/18 20:48 75 19 30 07/15/18 20:00 Mechanical Ventilator 07/15/18 20:00 98.2 75 20 134/80 (98) 100 07/15/18 20:00 78 07/15/18 20:00 30 07/15/18 17:04 93 16 30 07/15/18 16:00 30 07/15/18 16:00 Mechanical Ventilator 07/15/18 16:00 95 07/15/18 16:00 98.2 94 17 149/83 (105) 100 07/15/18 15:26 94 17 30 07/15/18 13:05 86 17 30 07/15/18 12:00 82 07/15/18 12:00 Mechanical Ventilator 07/15/18 11:17 30 07/15/18 11:15 98.0 83 18 154/88 (110) 100 07/15/18 10:30 81 15 30 07/15/18 09:53 77 164/98 Intake and Output 07/15/18 07/16/18 19:00 07:00 Intake Total 860 ml 805 ml Output Total 500 ml 250 ml Balance 360 ml 555 ml Intake Free Water 200 ml 200 ml IV Total 110 ml Tube Feeding 540 ml 495 ml Other 120 ml Output Urine Total 400 ml 200 ml Stool Total 100 ml 50 ml Objective WDWN poor LOC trach in place and clean reduced breath sounds bilaterally with minimal rhonchi [id number] without MRG NABS nontender no HSM; GT; no distention no CC persistent edema nonfocal, withdrawn skin exam noted reviewed and edited Laboratory Tests 07/16/18 08:00: Sodium Level 141, Potassium Level 3.8, Chloride Level 106, Carbon Dioxide Level 30, Anion Gap 5, Blood Urea Nitrogen 16, Creatinine 1.1, Estimat Glomerular Filtration Rate , Glucose Level 190H, Calcium Level 8.5 Current Medications Medications (Trade) Dose Ordered Sig/Derrick Route PRN Reason Start Time Stop Time Status Last Admin Dose Admin Acetaminophen (Tylenol) 650 mg Q4H PRN GT Mild Pain/Temp > 100.5 07/04/18 19:42 08/03/18 19:40 Amlodipine Besylate (Norvasc) 5 mg DAILY GT 07/13/18 09:00 08/12/18 08:59 07/15/18 09:53 Aspirin (ASA) 81 mg DAILY GT 07/06/18 09:00 08/05/18 08:59 07/15/18 09:52 Ceftazidime 1 gm/ Dextrose 55 ml @ 110 mls/hr Q8HR IV 07/14/18 10:00 07/21/18 09:59 07/16/18 06:02 Chlorhexidine Gluconate (Gwendolyn-Hex 2%) 1 applic DAILY@1999 TOPIC 07/11/18 20:00 08/10/18 19:59 07/15/18 20:33 Clonidine HCl (Catapres Tab) 0.1 mg Q4H PRN GT For SBP>160 07/13/18 09:00 08/12/18 08:59 Dextrose (Dextrose 50%) 25 ml Q30M PRN IV Hypoglycemia 07/04/18 22:45 08/03/18 22:44 Dextrose (Dextrose 50%) 50 ml Q30M PRN IV Hypoglycemia 07/04/18 22:45 08/03/18 22:44 Heparin Sodium (Porcine) (Heparin 5000 units/ml) 5,000 units EVERY 12 HOURS SUBQ 07/04/18 21:00 08/03/18 20:59 07/15/18 20:35 Insulin Aspart (NovoLOG) EVERY 6 HOURS SUBQ 07/05/18 00:00 08/04/18 00:00 07/16/18 06:06 Insulin Detemir (Levemir) 15 units BID SUBQ 07/05/18 09:00 08/04/18 08:59 07/15/18 17:39 Lansoprazole (Prevacid) 30 mg DAILY GT 07/05/18 09:00 08/04/18 08:59 07/15/18 09:52 Levetiracetam (Keppra) 500 mg Q12HR GT 07/04/18 21:00 08/03/18 20:59 07/15/18 20:33 Bakari Montanez MD Jul 16, 2018 08:52
[2018-07-16] MEDS: levETIRAcetam 500mg/5ml Liquid GT SCH (09:30)
[2018-07-16] MEDS: Aspirin Baby 81mg GT SCH (09:30)
[2018-07-16] MEDS: Levemir Flexpen SUBQ SCH (09:32)
[2018-07-16] MEDS: Heparin 5000 units/ml inj SUBQ SCH (09:32)
[2018-07-16 11:59] VITALS: BP 165/95
[2018-07-16 14:06] VITALS: BP 165/95
[2018-07-16] MEDS ORDERED: NS 275ml ONE (16:46)
[2018-07-16] MEDS ORDERED: Tubing IV Secondary IV ONE (16:46)
--- NOTE | 2018-07-16 16:52 | General Progress Note ---
Assessment/Plan Assessment/Plan Assessment - dysphagia - respiratory failure - s/p PEG - anoxic encephalopathy - Seizure disorder - Cirrhosis - diarrhea, likely TF related Recommendations - continue TF - GT care - Elevate HOB - Follow labs - d/c planning Subjective Allergies: Coded Allergies: No Known Allergies (Unverified , 07/04/18) Subjective above noted d/w RN tolerating TF no events overnight for discharge today Objective Last 24 Hour Vital Signs Date Time Temp Pulse Resp B/P (MAP) Pulse Ox O2 Delivery O2 Flow Rate FiO2 07/16/18 16:46 96 07/16/18 16:00 30 07/16/18 16:00 Mechanical Ventilator 07/16/18 14:39 100 16 30 07/16/18 14:06 165/95 07/16/18 12:39 101 16 30 07/16/18 12:00 30 07/16/18 12:00 Mechanical Ventilator 07/16/18 12:00 96 07/16/18 11:59 98.2 100 21 165/95 (118) 100 07/16/18 10:32 93 17 30 07/16/18 09:30 88 136/93 07/16/18 09:15 88 07/16/18 08:34 89 17 30 07/16/18 08:00 Mechanical Ventilator 07/16/18 08:00 30 07/16/18 08:00 98.2 88 21 136/93 (107) 100 07/16/18 06:47 85 16 30 07/16/18 05:08 77 16 30 07/16/18 04:00 97.5 77 22 151/85 (107) 99 07/16/18 04:00 77 07/16/18 04:00 30 07/16/18 04:00 Mechanical Ventilator 07/16/18 03:30 74 16 30 07/16/18 01:48 75 16 30 07/16/18 00:00 98.0 79 18 128/76 (93) 100 07/16/18 00:00 77 07/16/18 00:00 Mechanical Ventilator 07/15/18 23:45 75 16 30 07/15/18 21:46 77 16 30 07/15/18 20:48 75 19 30 07/15/18 20:00 Mechanical Ventilator 07/15/18 20:00 98.2 75 20 134/80 (98) 100 11/5/18 20:00 78 07/15/18 20:00 30 07/15/18 17:04 93 16 30 Intake and Output 07/15/18 07/16/18 18:59 06:59 Intake Total 860 ml 850 ml Output Total 500 ml 250 ml Balance 360 ml 600 ml Intake Free Water 200 ml 200 ml IV Total 110 ml Tube Feeding 540 ml 540 ml Other 120 ml Output Urine Total 400 ml 200 ml Stool Total 100 ml 50 ml Laboratory Tests 07/16/18 08:00: Sodium Level 141, Potassium Level 3.8, Chloride Level 106, Carbon Dioxide Level 30, Anion Gap 5, Blood Urea Nitrogen 16, Creatinine 1.1, Estimat Glomerular Filtration Rate , Glucose Level 190H, Calcium Level 8.5 Height (Feet): 5 Height (Inches): 11.00 Weight (Pounds): 218 Objective Obtunded NCAT supple CTA RRR abd soft, (+) GT (+) contractures Manolo Okeefe MD Jul 16, 2018 16:52
--- NOTE | 2018-07-16 23:15 | Discharge Summary ---
DATE OF ADMISSION: 07/04/2018 DATE OF DISCHARGE: 07/15/2018 ADMISSION DIAGNOSES: 1. Seizure disorder. 2. Sepsis. 3. Anemia. 4. Dehydration. 5. Toxic metabolic encephalopathy. 6. Hypertension. 7. Diabetes. DISCHARGE DIAGNOSES: 1. Seizure disorder. 2. Sepsis. 3. Anemia. 4. Dehydration. 5. Toxic metabolic encephalopathy. 6. Hypertension. 7. Diabetes. HOSPITAL COURSE: The patient is an unfortunate male with history of encephalopathy and chronic respiratory failure. He was admitted with complaints of sepsis, acute renal failure, and pneumonia. He received intravenous antibiotics. Cultures were followed up and antibiotics were adjusted by ID data integrity consultant. He was hydrated aggressively. He was continued on G-tube feeds. Pulmonary, ID, Cardiology, Infectious Disease, and Renal consultations were obtained. The patient had a prolonged hospitalization with episodes of hypokalemia. He had a EEG that showed no seizures. His G-tube became dislodged. Gastrointestinal consultation was obtained and it was replaced. He will be discharged to complete four additional days of intravenous ceftazidime. DISCHARGE MEDICATIONS: Please see discharge medication list for discharge medications. DIET: G-tube feedings. ACTIVITIES: Ad-sari. FOLLOWUP: The [facility] Chano Galeana M.D. DR: ISABELLA JOB#: [id number] CC:
== END 2018-07-16 16:47 | DRG 870 ==
LOC: EDBD 14:17 → EDBEDREQ 14:46 → EMR 15:11 → 2W 15:17 → EDBEDREQ 15:32
PROC: 5A1955Z Respiratory Ventilation, Greater than 96 Consecutive Hours (ICD-10-PCS; principal; 2018-07-04)
PROC: B548ZZA Ultrasonography of Superior Vena Cava, Guidance (ICD-10-PCS; 2018-07-11)
PROC: 0D20XUZ Change Feeding Device in Upper Intestinal Tract, External Approach (ICD-10-PCS; 2018-07-11)
PROC: 02HV33Z Insertion of Infusion Device into Superior Vena Cava, Percutaneous Approach (ICD-10-PCS; 2018-07-11)
DX: A41.9 Sepsis, unspecified organism (principal); G92 Toxic encephalopathy; J15.1 Pneumonia due to Pseudomonas; R53.2 Functional quadriplegia; N17.9 Acute kidney failure, unspecified; J96.10 Chronic respiratory failure, unspecified whether with hypoxia or hypercapnia; Z99.11 Dependence on respirator [ventilator] status; J44.0 Chronic obstructive pulmonary disease with (acute) lower respiratory infection; I13.0 Hypertensive heart and chronic kidney disease with heart failure and stage 1 through stage 4 chronic kidney disease, or unspecified chronic kidney disease; I50.32 Chronic diastolic (congestive) heart failure; E87.0 Hyperosmolality and hypernatremia; N39.0 Urinary tract infection, site not specified; E44.0 Moderate protein-calorie malnutrition; Z74.01 Bed confinement status; Z93.0 Tracheostomy status; Z93.1 Gastrostomy status; N18.9 Chronic kidney disease, unspecified; E11.22 Type 2 diabetes mellitus with diabetic chronic kidney disease; E11.65 Type 2 diabetes mellitus with hyperglycemia; E86.0 Dehydration; B96.20 Unspecified Escherichia coli [E. coli] as the cause of diseases classified elsewhere; Z86.74 Personal history of sudden cardiac arrest; G40.909 Epilepsy, unspecified, not intractable, without status epilepticus; R13.10 Dysphagia, unspecified; K21.9 Gastro-esophageal reflux disease without esophagitis; I25.9 Chronic ischemic heart disease, unspecified; I25.10 Atherosclerotic heart disease of native coronary artery without angina pectoris; E87.6 Hypokalemia; E87.8 Other disorders of electrolyte and fluid balance, not elsewhere classified; Z68.30 Body mass index [BMI] 30.0-30.9, adult; R19.7 Diarrhea, unspecified; K74.60 Unspecified cirrhosis of liver; F03.90 Unspecified dementia, unspecified severity, without behavioral disturbance, psychotic disturbance, mood disturbance, and anxiety; D64.9 Anemia, unspecified
CPT/HCPCS: 36415; 36569; 36600; 71045; 74018; 76700; 76937; 80048; 80053; 80202; 81003; 82248; 82550; 82553; 82803; 82962; 83036; 83605; 83735; 83880; 84100; 84443; 84484; 85007; 85025; 86705; 86709; 86803; 87040; 87070; 87081; 87086; 87181; 87205; 87324; 87340; 93005; 94002; 94003; 94664; 95819; 96360; 99291; J1815; J8499; S5561

== ENCOUNTER 2019-06-16 16:42 | Inpatient (IN) | payer MEDICARE, MEDICAID ==
[~2019-06-16] VITALS: Ht 165.1 cm; Wt 96.6 kg
[~2019-06-16 16:42] MED LIST: ASPIRIN81 MG GT; Acetaminophen GT; CEFTAZIDIME1 GM IJ; CLONIDINE0.1 MG GT; D50w IV; DUONEB 0.5-3(2.53 ML HHN; HIBICLENS118 ML TOPIC; KEPPRA LIQ100 MG/1 M GT; LANSOPRAZOLE30 MG GT; LANTUS SOL100 UNIT/1 SUBQ; LEVEMIR FL100 UNIT/1 SUBQ; NORVASC5 MG GT; NOVOLOG100 UNITS1 SUBQ; SODIUM CHLORIDE IVF; VANCOMYCIN HCL1 G1 IV; VANCOMYCIN HCL125 MG IVPB
[2019-06-16 16:44] VITALS: BP 80/42
--- NOTE | 2019-06-16 17:17 | Emergency Room Report ---
History of Present Illness General Chief Complaint: Hypothermia Source: EMS Present Illness HPI 74-year-old male presents ED for evaluation. Brought in by EMS from group home facility. Noted to be hypothermic and hypotensive today by nursing staff. Patient nonverbal at baseline. Chronic respiratory failure with with trach. Unable to provide any additional history at this time. BP low in triage. Rectal temperature low. No other aggravating relieving factors. No other associated symptoms Allergies: Coded Allergies: No Known Allergies (Unverified , 07/04/18) Patient History Past Medical History: HTN, dementia, seizures Past Surgical History: other - trach Pertinent Family History: none Social History: Denies: smoking, alcohol use, drug use Immunizations: UTD Reviewed Nursing Documentation: PMH: Agreed; PSxH: Agreed Nursing Documentation-PMH Hx Cardiac Problems: No - cardiac arrest, heart failure Hx Hypertension: Yes Hx COPD: Yes - tracheostomy, on vent Hx Diabetes: Yes Hx Cancer: No Hx Gastrointestinal Problems: No Hx Neurological Problems: Yes - muscle weakness Hx Dementia: Yes Hx Encephalitis: Yes Hx Seizures: Yes Hx Epilepsy: Yes Review of Systems All Other Systems: limited Physical Exam Vital Signs Date Time Temp Pulse Resp B/P (MAP) Pulse Ox O2 Delivery O2 Flow Rate FiO2 06/16/19 16:44 60 22 80/42 (55) 99 Mechanical Ventilator 06/16/19 17:01 40 06/16/19 17:07 50.0 Sp02 EP Interpretation: reviewed, normal General Appearance: mild distress, other - nonverbal Head: normocephalic Eyes: bilateral eye normal inspection, bilateral eye PERRL ENT: normal ENT inspection Neck: tracheotomy Respiratory: crackles Cardiovascular #1: normal inspection Gastrointestinal: normal inspection Rectal: deferred Genitourinary: no CVA tenderness Musculoskeletal: back normal, gait/station normal, normal range of motion, non- tender Neurologic: other - nonverbal Psychiatric: other - nonerbal Skin: other - see nursing notes Lymphatic: normal inspection Procedures Critical Care Time Critical Care Time i. I feel this is a highly complex case requiring extensive working including EKG/Rhythm strip, Xray/CT/US, Blood/urine lab work, repeat exams while in ED, and administration of strong opiates/narcotics for pain control, admission to hospital or close patient follow up. Total time: 60 min bedside evaluation and treatment excludes procedures (EKG). Reason for critical care: severe sepsis, pneumonia, hyperkalemia, hypothermia Possible complications: hypotension, hypertension, AZ, shock, arrhythmias, metabolic acidosis, end organ damage, respiratory failure. Interventions: Labs, IV fluids, EKG, chest x-ray, 30 cc/kg fluid bolus. Broad- spectrum antibiotics. Warming blankets and warming fluids. Course: Presenting from group home facility with hypothermia and hypotension. Rectal temp low. Started on warming fluids and warming blankets. Significant leukocytosis. There is anemia. Lactic greater than 7. Sodium 109, potassium 6.2, renal insufficiency noted. Significant pneumonia noted on chest x-ray. Initially hypotensive and BP improved with IV fluids. Broad- spectrum antibiotics given. Given insulin/D50/calcium. Consultations: nursing staff, EMS, family Performed by: Dr Martin Tolerated well condition = critical j. because of unstable vital signs this patient had a condition that could potentially threaten life or limb. I feel this is a critical patient who required my full attention while patient was considered critical. Total Critical Care Time excluding procedures was greater than 50 minutes Medical Decision Making Diagnostic Impression: Primary Impression: Hypothermia Qualified Codes: T68.XXXA - Hypothermia, initial encounter Additional Impressions: Pneumonia Qualified Codes: J18.9 - Pneumonia, unspecified organism Hyperkalemia Hyponatremia Severe sepsis Renal insufficiency Anemia Qualified Codes: D64.9 - Anemia, unspecified ER Course Hospital Course 74-year-old male presenting to ED with hypothermia, hypotension Differential diagnoses include: Pneumonia, UTI, sepsis, dehydration, AZ/ unstable angina Clinical course Patient placed on stretcher. On hebrew professor with hypotension. After initial history and physical, I ordered labs, IV fluids, EKG, chest x-ray, blood cultures, UA. Labs - BUN/Cr elevated, noted leukocytosis, hb 7.4, Na 109, K 6.2 troponins negative, lactic 7.3 EKG - NSr, no acute ischemic changes intepreted by me CXR - bilateral infiltrates Abx given. 30 cc/kg fluid bolus with BP improved. Given insulin/D50/calcium. warming fluids and anna hugger applied. discussed with Dr Galeana and they agreed to admit patient to their service for further care and support I feel this is a highly complex case requiring extensive working including EKG/ Rhythm strip, Xray/CT/US, Blood/urine lab work, repeat exams while in ED, and administration of strong opiates/narcotics for pain control, admission to hospital or close patient follow up. Diagnosis - UTI, generalized weakness Patient admitted to telemetry in stable condition Labs Test 06/16/19 17:00 06/16/19 17:50 06/16/19 18:42 White Blood Count 16.1 K/UL (4.8-10.8) Red Blood Count 2.61 M/UL (4.70-6.10) Hemoglobin 7.4 G/DL (14.2-18.0) Hematocrit 22.7 % (42.0-52.0) Mean Corpuscular Volume 87 FL (80-99) Mean Corpuscular Hemoglobin 28.3 PG (27.0-31.0) Mean Corpuscular Hemoglobin Concent 32.7 G/DL (32.0-36.0) Red Cell Distribution Width 15.0 % (11.6-14.8) Platelet Count 75 K/UL (150-450) Mean Platelet Volume 8.9 FL (6.5-10.1) Neutrophils (%) (Auto) % (45.0-75.0) Lymphocytes (%) (Auto) % (20.0-45.0) Monocytes (%) (Auto) % (1.0-10.0) Eosinophils (%) (Auto) % (0.0-3.0) Basophils (%) (Auto) % (0.0-2.0) Differential Total Cells Counted 100 Neutrophils % (Manual) 64 % (45-75) Lymphocytes % (Manual) 15 % (20-45) Monocytes % (Manual) 11 % (1-10) Eosinophils % (Manual) 0 % (0-3) Basophils % (Manual) 0 % (0-2) Band Neutrophils 10 % (0-8) Nucleated Red Blood Cells 17 /100 WBC Platelet Estimate Decreased Platelet Morphology Normal Hypochromasia 1+ Anisocytosis 1+ Sodium Level 109 MMOL/L (136-145) Potassium Level 6.2 MMOL/L (3.5-5.1) Chloride Level 77 MMOL/L (98-107) Carbon Dioxide Level 20 MMOL/L (21-32) Anion Gap 12 mmol/L (5-15) Blood Urea Nitrogen 67 mg/dL (7-18) Creatinine 1.4 MG/DL (0.55-1.30) Estimat Glomerular Filtration Rate mL/min (>60) Glucose Level 284 MG/DL (74-106) Lactic Acid Level 7.30 mmol/L (0.4-2.0) Calcium Level 8.9 MG/DL (8.5-10.1) Total Bilirubin 0.3 MG/DL (0.2-1.0) Aspartate Amino Transf (AST/SGOT) 41 U/L (15-37) Alanine Aminotransferase (ALT/SGPT) 35 U/L (12-78) Alkaline Phosphatase 171 U/L (46-116) Total Creatine Kinase 90 U/L (26-308) Creatine Kinase MB 5.7 NG/ML (0.0-3.6) Creatine Kinase MB Relative Index 6.3 Troponin I 0.000 ng/mL (0.000-0.056) Pro-B-Type Natriuretic Peptide 187 pg/mL (0-125) Total Protein 8.2 G/DL (6.4-8.2) Albumin 1.7 G/DL (3.4-5.0) Globulin 6.5 g/dL Albumin/Globulin Ratio 0.3 (1.0-2.7) Urine Color Yellow Urine Appearance Clear Urine pH 5 (4.5-8.0) Urine Specific [place] 1.015 (1.005-1.035) Urine Protein Negative (NEGATIVE) Urine Glucose (UA) Negative (NEGATIVE) Urine Ketones Negative (NEGATIVE) Urine Blood Negative (NEGATIVE) Urine Nitrite Negative (NEGATIVE) Urine Bilirubin Negative (NEGATIVE) Urine Urobilinogen Normal MG/DL (0.0-1.0) Urine Leukocyte Esterase 1+ (NEGATIVE) Urine RBC 0-2 /HPF (0 - 0) Urine WBC 2-4 /HPF (0 - 0) Urine Squamous Epithelial Cells None /LPF (NONE/OCC) Urine Amorphous Sediment Moderate /LPF (NONE) Urine Bacteria Few /HPF (NONE) EKG Diagnostic Results Rate: normal Rhythm: NSR ST Segments: no acute changes ASA given to the pt in ED: No Rhythm Strip Diag. Results EP Interpretation: yes Rhythm: NSR, no PVC's, no ectopy Chest X-Ray Diagnostic Results Chest X-Ray Diagnostic Results : Chest X-Ray Ordered: Yes # of Views/Limited/Complete: 1 View Indication: Shortness of Breath EP Interpretation: Yes Interpretation: no pneumothorax, other - bilateral infiltrate Impression: Other - pneumonia Electronically Signed by: Electronically signed by Maxim Martin MD Last Vital Signs Date Time Temp Pulse Resp B/P (MAP) Pulse Ox O2 Delivery O2 Flow Rate FiO2 06/16/19 17:07 69 30 100 Mechanical Ventilator 50.0 40 06/16/19 16:44 80/42 (55) Status: improved Disposition: ADMITTED INPATIENT Condition: Critical Maxim Martin MD Jun 16, 2019 17:17
--- NOTE | 2019-06-16 17:19 | Diagnostic Imaging Report ---
Indication: Shortness of breath Technique: One view of the chest Comparison: 07/10/2018 Findings: Interim development of fairly extensive bilateral mid and upper lung infiltrates. There is some retrocardiac consolidation as well. Previously demonstrated pleural effusions are no longer evident. Tracheostomy again demonstrated Impression: Bilateral mid and upper lung infiltrates, likely pneumonia. Pulmonary edema also possible.
[2019-06-16] MEDS ORDERED: LISINOPRIL20 MG GT (17:27)
[2019-06-16] MEDS ORDERED: LANSOPRAZOLE30 MG GT (17:27)
[2019-06-16] MEDS ORDERED: DECLOMYCIN150 MG GT (17:27)
[2019-06-16] MEDS ORDERED: LEVEMIR FL100 UNIT/1 SUBQ (17:27)
[2019-06-16] MEDS ORDERED: FLORASTOR250 MG GT (17:27)
[2019-06-16] MEDS ORDERED: JANUVIA25 MG GT (17:27)
[2019-06-16 18:03] LABS: HEMATOCRIT 22.7 % (42.0-52.0); HEMOGLOBIN 7.4 G/DL (14.2-18.0); MEAN CORPUSCULAR VOLUME 87 FL (80-99); PLATELET COUNT 75 K/UL (150-450); RED BLOOD COUNT 2.61 M/UL (4.70-6.10); WHITE BLOOD COUNT 16.1 K/UL (4.8-10.8)
[2019-06-16 18:17] LABS: APPEARANCE,URINE CLEAR; BILIRUBIN, URINE NEGATIVE (NEGATIVE); GLUCOSE, URINE (UA) NEGATIVE (NEGATIVE); KETONES,URINE NEGATIVE (NEGATIVE); LEUKOCYTE ESTERASE ,URINE 1+ (NEGATIVE); NITRITE,URINE NEGATIVE (NEGATIVE); PH,URINE 5 (4.5-8.0); PROTEIN,URINE NEGATIVE (NEGATIVE); UROBILINOGEN,URINE NORMAL MG/DL (0.0-1.0)
[2019-06-16 18:18] LABS: COLOR,URINE YELLOW
[2019-06-16 18:24] LABS: ALANINE AMINOTRANSFERASE 35 U/L (12-78); ALBUMIN 1.7 G/DL (3.4-5.0); ALBUMIN/GLOBULIN RATIO 0.3 (1.0-2.7); ALKALINE PHOSPHATASE 171 U/L (46-116); ANION GAP 12 mmol/L (5-15); ASPARTATE AMINO TRANSFERASE 41 U/L (15-37); BILIRUBIN,TOTAL 0.3 MG/DL (0.2-1.0); BLOOD UREA NITROGEN 67 mg/dL (7-18); CALCIUM 8.9 MG/DL (8.5-10.1); CARBON DIOXIDE 20 MMOL/L (21-32); CHLORIDE 77 MMOL/L (98-107); CKMB 5.7 NG/ML (0.0-3.6); CREATINE KINASE 90 U/L (26-308); CREATININE 1.4 MG/DL (0.55-1.30)
[2019-06-16 18:27] LABS: POTASSIUM 6.2 MMOL/L (3.5-5.1); SODIUM 109 MMOL/L (136-145)
[2019-06-16] MEDS ORDERED: Azithromycin 500 MG in NS 275 ML IV ONE (18:30)
[2019-06-16] MEDS ORDERED: Cefepime HCl 1 GM in D5W 55 ML IVPB ONE (18:30)
[2019-06-16] MEDS ORDERED: Calcium Gluconate 1gm/10ml vial IVP ONE (18:45)
[2019-06-16] MEDS ORDERED: Insulin Human Regular 100units/ml 3ml IV ONE (18:45)
[2019-06-16 19:22] VITALS: BP 100/53
[2019-06-16 20:03] LABS: INR 1.1 (0.9-1.1)
[2019-06-16] MEDS: levETIRAcetam 500mg/5ml Liquid GT SCH (21:00)
[2019-06-16] MEDS ORDERED: Vancomycin 1.5gm/NS Premix IVPB ONE (21:30)
[2019-06-16] MEDS ORDERED: Levophed 4mg/4mL Inj IV ONE (21:37)
--- NOTE | 2019-06-16 21:37 | Diagnostic Imaging Report ---
Indication: Post central line placement Technique: One view of the chest Comparison: 4 hours earlier Findings: Interim placement of right jugular central venous catheter, tip of which projects at the level of the mid superior vena cava. Bilateral extensive interstitial and airspace disease is again demonstrated, probably unchanged. No gross pneumothorax. Granuloma septations are again seen in the right hilum. Tracheostomy is again demonstrated Impression: Satisfactory placement of right jugular central venous catheter. No radiographically evident complication Stable bilateral diffuse parenchymal infiltrates versus edema This agrees with the preliminary interpretation provided [facility] by [facility].
--- NOTE | 2019-06-16 21:38 | Emergency Room Report ---
History of Present Illness General Chief Complaint: Hypothermia Source: EMS Present Illness Allergies: Coded Allergies: No Known Allergies (Unverified , 07/04/18) Nursing Documentation-PMH Hx Cardiac Problems: Yes - cardiac arrest, heart failure Hx Hypertension: Yes Hx COPD: Yes - tracheostomy, on vent Hx Diabetes: Yes Hx Cancer: No Hx Gastrointestinal Problems: Yes Hx Neurological Problems: Yes - muscle weakness Hx Dementia: Yes Hx Encephalitis: Yes Hx Seizures: Yes Hx Epilepsy: Yes Physical Exam Vital Signs Date Time Temp Pulse Resp B/P (MAP) Pulse Ox O2 Delivery O2 Flow Rate FiO2 06/16/19 16:44 90.0 60 22 80/42 99 Mechanical Ventilator 06/16/19 17:01 40 06/16/19 17:07 50.0 Procedures Central Line Central Line : Consent: Emergent Central Line Lumen: triple Maximal Sterile Barrier Tech: yes cap, yes mask, yes sterile gown, yes sterile gloves, yes large sterile sheet, yes hand hygiene, yes chlorhexidine prep Central Line Postion: internal jugular (R) Anesthesia: local Complications: none Central Line Post Position: sutured, good blood return, position confirmed w / CXR Attempts: One Patient Tolerated: Well Complications: None Medical Decision Making Diagnostic Impression: Primary Impression: Hypothermia Qualified Codes: T68.XXXA - Hypothermia, initial encounter Additional Impressions: Anemia Qualified Codes: D64.9 - Anemia, unspecified Hyponatremia Severe sepsis Renal insufficiency Pneumonia Qualified Codes: J18.9 - Pneumonia, unspecified organism Hyperkalemia ER Course Despite 30 cc/kg fluid bolus BP continues to drop. Very difficult access due to patient's contracted state. I placed right IJ central line using ultrasound. Confirmed placement with chest x-ray. Levophed started Last Vital Signs Date Time Temp Pulse Resp B/P (MAP) Pulse Ox O2 Delivery O2 Flow Rate FiO2 06/16/19 19:22 88.4 85 30 100/53 100 Mechanical Ventilator 50.0 40 Status: improved Disposition: ADMITTED INPATIENT Condition: Critical Referrals: Bakari Montanez MD (PCP) Maxim Martin MD Jun 16, 2019 21:38
--- NOTE | 2019-06-16 21:40 | Emergency Room Report ---
Sepsis Event Note Evaluation Current Stage of Sepsis: Septic Shock Possible Source: Pulmonary Problems: (1) Hyperglycemia ICD Codes: R73.9 - Hyperglycemia, unspecified SNOMED: 01661427 (2) Hyperkalemia ICD Codes: E87.5 - Hyperkalemia SNOMED: 55557628, 040730383 (3) Anemia ICD Codes: D64.9 - Anemia, unspecified Qualifiers: Qualified Codes: D64.9 - Anemia, unspecified SNOMED: 534620406 (4) Hyponatremia ICD Codes: E87.1 - Hypo-osmolality and hyponatremia SNOMED: 04679882 (5) Hypothermia ICD Codes: T68.XXXA - Hypothermia, initial encounter Qualifiers: Qualified Codes: T68.XXXA - Hypothermia, initial encounter SNOMED: 366361616 (6) Renal insufficiency ICD Codes: N28.9 - Disorder of kidney and ureter, unspecified; R65.20 - Severe sepsis without septic shock SNOMED: 601119888, 084890952 (7) Pneumonia ICD Codes: J18.9 - Pneumonia, unspecified organism Qualifiers: Qualified Codes: J18.9 - Pneumonia, unspecified organism SNOMED: 134141009, 269546782 (8) Severe sepsis ICD Codes: A41.9 - Sepsis, unspecified organism; R65.20 - Severe sepsis without septic shock SNOMED: 34397496 Focused Exam Allergies: Coded Allergies: No Known Allergies (Unverified , 07/04/18) Date Exam Occurred: Jun 16, 2019 Time Exam Occurred: 21:40 Laboratory Studies Laboratory Tests Test 06/16/19 17:00 06/16/19 17:50 06/16/19 18:42 White Blood Count 16.1 K/UL (4.8-10.8) H Red Blood Count 2.61 M/UL (4.70-6.10) L Hemoglobin 7.4 G/DL (14.2-18.0) L Hematocrit 22.7 % (42.0-52.0) L Mean Corpuscular Volume 87 FL (80-99) Mean Corpuscular Hemoglobin 28.3 PG (27.0-31.0) Mean Corpuscular Hemoglobin Concent 32.7 G/DL (32.0-36.0) Red Cell Distribution Width 15.0 % (11.6-14.8) H Platelet Count 75 K/UL (150-450) L Mean Platelet Volume 8.9 FL (6.5-10.1) Neutrophils (%) (Auto) % (45.0-75.0) Lymphocytes (%) (Auto) % (20.0-45.0) Monocytes (%) (Auto) % (1.0-10.0) Eosinophils (%) (Auto) % (0.0-3.0) Basophils (%) (Auto) % (0.0-2.0) Differential Total Cells Counted 100 Neutrophils % (Manual) 64 % (45-75) Lymphocytes % (Manual) 15 % (20-45) L Monocytes % (Manual) 11 % (1-10) H Eosinophils % (Manual) 0 % (0-3) Basophils % (Manual) 0 % (0-2) Band Neutrophils 10 % (0-8) H Nucleated Red Blood Cells 17 /100 WBC Platelet Estimate Decreased L Platelet Morphology Normal Hypochromasia 1+ Anisocytosis 1+ Prothrombin Time 11.4 SEC (9.30-11.50) Prothromb Time International Ratio 1.1 (0.9-1.1) Activated Partial Thromboplast Time 38 SEC (23-33) H Sodium Level 109 MMOL/L (136-145) *L Potassium Level 6.2 MMOL/L (3.5-5.1) *H Chloride Level 77 MMOL/L (98-107) L Carbon Dioxide Level 20 MMOL/L (21-32) L Anion Gap 12 mmol/L (5-15) Blood Urea Nitrogen 67 mg/dL (7-18) H Creatinine 1.4 MG/DL (0.55-1.30) H Estimat Glomerular Filtration Rate mL/min (>60) Glucose Level 284 MG/DL (74-106) H Lactic Acid Level 7.30 mmol/L (0.4-2.0) H 5.50 mmol/L (0.66-2.22) H Calcium Level 8.9 MG/DL (8.5-10.1) Total Bilirubin 0.3 MG/DL (0.2-1.0) Aspartate Amino Transf (AST/SGOT) 41 U/L (15-37) H Alanine Aminotransferase (ALT/SGPT) 35 U/L (12-78) Alkaline Phosphatase 171 U/L (46-116) H Total Creatine Kinase 90 U/L (26-308) Creatine Kinase MB 5.7 NG/ML (0.0-3.6) H Creatine Kinase MB Relative Index 6.3 Troponin I 0.000 ng/mL (0.000-0.056) Pro-B-Type Natriuretic Peptide 187 pg/mL (0-125) H Total Protein 8.2 G/DL (6.4-8.2) Albumin 1.7 G/DL (3.4-5.0) L Globulin 6.5 g/dL Albumin/Globulin Ratio 0.3 (1.0-2.7) L Urine Color Yellow Urine Appearance Clear Urine pH 5 (4.5-8.0) Urine Specific [place] 1.015 (1.005-1.035) Urine Protein Negative (NEGATIVE) Urine Glucose (UA) Negative (NEGATIVE) Urine Ketones Negative (NEGATIVE) Urine Blood Negative (NEGATIVE) Urine Nitrite Negative (NEGATIVE) Urine Bilirubin Negative (NEGATIVE) Urine Urobilinogen Normal MG/DL (0.0-1.0) Urine Leukocyte Esterase 1+ (NEGATIVE) H Urine RBC 0-2 /HPF (0 - 0) H Urine WBC 2-4 /HPF (0 - 0) Urine Squamous Epithelial Cells None /LPF (NONE/OCC) Urine Amorphous Sediment Moderate /LPF (NONE) H Urine Bacteria Few /HPF (NONE) Vital Signs Last 24 Hour Vital Signs Date Time Temp Pulse Resp B/P (MAP) Pulse Ox O2 Delivery O2 Flow Rate FiO2 06/16/19 19:22 88.4 85 30 100/53 100 Mechanical Ventilator 50.0 40 06/16/19 17:22 50.0 40 06/16/19 17:07 69 30 100 Mechanical Ventilator 50.0 40 06/16/19 17:01 69 28 40 06/16/19 16:44 90.0 60 22 80/42 (55) 99 Mechanical Ventilator 06/16/19 16:44 90.0 60 22 80/42 99 Mechanical Ventilator Respiratory Exam: Crackles Cardiovascular Exam: RRR Capillary Refill: Less Than 2 Seconds Peripheral Pulse: Strong Pulse Location: Femoral Skin Exam: Unremarkable Bedside Monitoring Date bedside monitoring occur: Jun 16, 2019 Time bedside monitoring occur: 21:39 Passive Leg Raise/Fluid Bolus: Not Fluid Responsive Maxim Martin MD Jun 16, 2019 21:40
[2019-06-16 21:45] VITALS: BP 85/46
[2019-06-16 23:27] VITALS: BP 112/56
[2019-06-16] MEDS ORDERED: Piperacillin/Tazobactam 3.375 GM in NS 110 ML IVPB SCH (23:30)
[2019-06-17] VITALS (33 sets, daily range): BP systolic 70–117; BP diastolic 40–70
[2019-06-17] MEDS: D5NS 1,000 ML IV SCH ×5 (02:17→22:41)
[2019-06-17] MEDS ORDERED: levETIRAcetam 500mg/5ml Liquid GT ONE (02:30)
--- NOTE | 2019-06-17 02:45 | Consultation ---
DATE OF CONSULTATION: 06/16/2019 CARDIOLOGY CONSULTATION CONSULTING PHYSICIAN: Sea Madison M.D. REFERRING PHYSICIAN: Chano Galeana M.D. REASON FOR CONSULT: Shock. HISTORY OF PRESENT ILLNESS: This is a 74-year-old male, who resides at a shelter facility. He was noted to have low blood pressure and temperature by nursing staff. He was transferred by an EMS. At baseline, he is nonverbal, so mentation could not be accurately assessed. He does have a tracheostomy, however. On arrival in the emergency room, temperature was low, rectal temperature was low with blood pressure 80/42, heart rate 60, and respiratory rate 22. Central venous access was obtained and fluid challenges and warming measures were implemented. The patient is admitted to the intensive care unit. PAST MEDICAL HISTORY: Hypertension, cerebrovascular disease, dementia, seizure disorder, tracheostomy with ventilator dependence, COPD, history of cardiac arrest, chronic congestive heart failure, and type 2 diabetes mellitus. ALLERGIES: None. MEDICATIONS: Prior to admission, reviewed and reconciled. FAMILY HISTORY: Not known. SOCIAL HISTORY: Not obtainable. REVIEW OF SYSTEMS: Cannot be reliably obtained from the patient. However, [facility] records are reviewed x15 to x20 minutes and pertinent data as outlined above. PHYSICAL EXAMINATION: VITAL SIGNS: Blood pressure 80/42, pulse 60, respirations 22, and temperature 90 rectally. HEENT: Dry mucous membranes. NECK: Trach with thin secretions. LUNGS: Bilateral breath sounds. HEART: Regular rhythm, slow rate. Normal S1, S2. ABDOMEN: Soft. G-tube intact. EXTREMITIES: No edema. Diminished capillary refill. NEUROLOGIC: Noncommunicative. IMAGING: Chest x-ray reveals bilateral upper and mid lung infiltrates and pulmonary venous congestion possibly as well as. LABORATORY DATA: White count 16, hemoglobin 7.4, and platelets 75,000. Sodium 109, potassium 6.2, bicarb 20, chloride 77, BUN 67, and creatinine 1.4. Glucose 284. Lactic acid 7.3. Troponin negative. Natriuretic peptide 187. Albumin 1.7. Urinalysis with no active sediment. EKG with sinus rhythm, no acute abnormalities. IMPRESSION: 1. Critical and guarded. 2. Hypothermia. 3. Shock. 4. Sepsis. 5. Hyponatremia. 6. Bilateral healthcare-acquired pneumonia. 7. Chronic respiratory failure. 8. Metabolic encephalopathy in the setting of chronic encephalopathy due to cerebrovascular disease. Anemia. 9. Thrombocytopenia. 10. Hyperkalemia. 11. Lactic acidosis. PLAN: 1. ICU monitoring. 2. Warming measures. 3. Volume support with saline. 4. Check cortisol level. 5. Panculture. 6. Broad spectrum antimicrobials. 7. Full ventilator support. 8. Monitor blood counts, may need transfusion. 9. Serial lactic acid levels. Sea Madison M.D. DR: BEBO JOB#: [id number] CC:
[2019-06-17] MEDS: Piperacillin/Tazobactam 3.375 GM in NS 110 ML IVPB SCH ×3 (03:15→18:42)
[2019-06-17] MEDS ORDERED: Vancomycin 1.5gm/NS Premix IVPB ONE (03:30)
[2019-06-17 06:34] LABS: HEMATOCRIT 28.1 % (42.0-52.0); HEMOGLOBIN 9.4 G/DL (14.2-18.0); MEAN CORPUSCULAR VOLUME 89 FL (80-99); PLATELET COUNT 61 K/UL (150-450); RED BLOOD COUNT 3.17 M/UL (4.70-6.10); RED CELL DISTRIBUTION WIDTH 15.1 % (11.6-14.8); WHITE BLOOD COUNT 18.1 K/UL (4.8-10.8)
[2019-06-17 07:16] LABS: ALANINE AMINOTRANSFERASE 30 U/L (12-78); ALBUMIN 1.4 G/DL (3.4-5.0); ALBUMIN/GLOBULIN RATIO 0.2 (1.0-2.7); ALKALINE PHOSPHATASE 143 U/L (46-116); ANION GAP 6 mmol/L (5-15); ASPARTATE AMINO TRANSFERASE 38 U/L (15-37); BILIRUBIN,TOTAL 0.5 MG/DL (0.2-1.0); BLOOD UREA NITROGEN 53 mg/dL (7-18); CALCIUM 8.2 MG/DL (8.5-10.1); CARBON DIOXIDE 20 MMOL/L (21-32); CHLORIDE 90 MMOL/L (98-107)
[2019-06-17 07:17] LABS: SODIUM 116 MMOL/L (136-145)
[2019-06-17] MEDS: levETIRAcetam 500mg/5ml Liquid GT SCH ×2 (08:35→21:04)
--- NOTE | 2019-06-17 08:59 | Critical Care Progress Note ---
Assessment/Plan Assessment/Plan chronic respiratory failure multifocal penumonia hypoxemia sepsis leukocytosis hyponatremia ARF trach GT severe PCM chronic encephalopathy PLAN renal and ID evaluation vent support monitor acid base iv antibiotics ICU care critical hydration with caution monitor imaging monitor cultures all care reviewed in detail close follow up of all parameters medications/laboratory data/nursing notes/ICU care reviewed in detail note reviewed and edited care discussed with RN and RT ICU time spent 55 minutes Critical Care - Subjective Interval Events: all care reviewed transferred by 911 hyponatremia sepsis respiratory failure well known to me SNf and ER care reviewed ROS Limited/Unobtainable: Yes Condition: critical EKG Rhythm: Sinus Rhythm Residuals: minimal Tube Feeding Tolerated: yes I&O: Intake and Output 06/16/19 06/17/19 19:00 07:00 Intake Total 5925.00 ml Output Total 831 ml Balance 5094.00 ml Intake Oral 0 ml IV Total 5325.00 ml Blood Product 600 ml Output Urine Total 830 ml Stool Total 1 ml # Voids 1 # Bowel Movements 3 Critical Care - Objective CXR: multifocal pneumonia Last 24 Hour Vital Signs Date Time Temp Pulse Resp B/P (MAP) Pulse Ox O2 Delivery O2 Flow Rate FiO2 06/17/19 07:09 76 27 40 06/17/19 07:00 75 27 100/53 100 Mechanical Ventilator 60 06/17/19 06:30 76 27 98/53 100 Mechanical Ventilator 60 06/17/19 06:00 70 27 108/50 100 Mechanical Ventilator 60 06/17/19 05:30 73 27 107/55 100 Mechanical Ventilator 60 06/17/19 05:11 65 24 114/54 (74) 98 06/17/19 05:03 70 24 40 06/17/19 05:00 92.0 69 25 98/58 100 Mechanical Ventilator 60 06/17/19 04:00 69 06/17/19 04:00 Mechanical Ventilator 06/17/19 04:00 92.0 69 25 98/58 100 Mechanical Ventilator 60 06/17/19 03:30 68 25 101/56 100 Mechanical Ventilator 60 06/17/19 03:00 63 25 99/55 (70) 98 06/17/19 03:00 65 24 114/54 98 Mechanical Ventilator 60 06/17/19 02:50 84 26 40 06/17/19 02:30 63 24 99/52 98 Mechanical Ventilator 60 06/17/19 02:30 63 25 99/55 (70) 98 06/17/19 02:00 62 25 77/43 98 Mechanical Ventilator 60 06/17/19 02:00 62 25 77/43 (54) 98 06/17/19 01:30 61 25 98/46 97 Mechanical Ventilator 80 06/17/19 01:30 60 25 98/46 (63) 98 06/17/19 01:00 60 26 80/43 97 Mechanical Ventilator 80 06/17/19 01:00 60 26 80/43 (55) 97 06/17/19 00:50 81 23 40 06/17/19 00:30 61 26 79/40 97 Mechanical Ventilator 100 06/17/19 00:30 67 26 79/40 (53) 97 06/17/19 00:15 40 06/17/19 00:00 Mechanical Ventilator 06/17/19 00:00 Mechanical Ventilator 06/17/19 00:00 68 06/17/19 00:00 89.2 76 29 117/70 97 Mechanical Ventilator 100 06/17/19 00:00 89.0 67 28 117/70 (86) 97 06/16/19 23:40 90.4 65 25 112/59 100 Mechanical Ventilator 5.0 60 06/16/19 23:29 112/59 06/16/19 23:27 90.4 65 25 112/56 100 Mechanical Ventilator 5.0 60 06/16/19 23:00 79 24 40 06/16/19 22:59 99/50 06/16/19 22:29 104/44 06/16/19 22:14 92/53 06/16/19 21:59 82/50 06/16/19 21:45 88.7 61 25 85/46 100 Mechanical Ventilator 5.0 60 06/16/19 21:44 85/46 06/16/19 21:27 74 26 40 06/16/19 19:22 88.4 85 30 100/53 100 Mechanical Ventilator 50.0 40 06/16/19 18:55 71 26 40 06/16/19 17:22 50.0 40 06/16/19 17:07 69 30 100 Mechanical Ventilator 50.0 40 06/16/19 17:01 69 28 40 06/16/19 16:44 90.0 60 22 80/42 (55) 99 Mechanical Ventilator 06/16/19 16:44 90.0 60 22 80/42 99 Mechanical Ventilator Objective: WDWN trach and vent reduced breath sounds bilaterally with scattered rhonchi [id number] without MRG NABS nontender no HSM; GT; no distention no CCE nonfocal poor LOC skin exam reviewed Micro: Microbiology Date/Time Source Procedure Growth Status 06/16/19 18:50 Rectum Received Accucheck: 340 Bakari Montanez MD Jun 17, 2019 08:59
[2019-06-17] MEDS: Aspirin Baby 81mg GT SCH (09:00)
[2019-06-17] MEDS: NovoLOG Insulin Flexpen SUBQ SCH ×3 (11:35→21:05)
--- NOTE | 2019-06-17 12:19 | Diagnostic Imaging Report ---
Indication: Abdominal distention Technique: Supine view of the abdomen Comparison: 07/11/2018 Findings: Considerable gas is seen within the colon. Extent of gas is similar to the prior exam. However, there is suggestion of nodular mucosal fold thickening of what is probably the distal sigmoid. No gaseous distention of small bowel. There is a Vera catheter in place. There is a gastrostomy. Extensive pulmonary parenchymal disease is seen in the visualized lung bases Impression: Nonspecific gas-filled not frankly distended colon. However, there is suggestion of nodular mucosal thickening in one segment of what is probably the sigmoid, could indicate inflammatory bowel disease Bilateral pulmonary parenchymal disease, also reported on separate chest radiograph
--- NOTE | 2019-06-17 14:04 | Cardiology Report ---
APPROVED REPORT EKG Measurement Heart [id number] Normal sinus rhythm Nonspecific ST abnormality Abnormal ECG
[2019-06-17] MEDS ORDERED: Tubing Blood Filter IV ONE (14:05)
[2019-06-17] MEDS ORDERED: NS 275ml ONE (14:05)
[2019-06-17] MEDS ORDERED: D5NS 1000ml IV ONE (14:05)
--- NOTE | 2019-06-17 15:45 | History and Physical Report ---
DATE OF ADMISSION: 06/16/2019 CHIEF COMPLAINT: Septic shock, hyponatremia, respiratory failure, severe lactic acidosis. HISTORY OF PRESENT ILLNESS: The patient is a 74-year-old male. He has a history of anoxic encephalopathy, stroke, chronic respiratory failure, cirrhosis, seizure disorder. He was transferred from a custodial facility, found to have hypotension. The patient is nonverbal at baseline. He is chronically ventilator dependent and resides at [facility]. On evaluation in the emergency room, the patient had multiple laboratory abnormalities. In addition, he was hypotensive and anemic. He was noted to have a sodium of 109, potassium is 6.2. Lactic acid level was 7.3. He had bilateral infiltrates on x-ray. He has been started on IV fluids as well as pressors for blood pressure support. He has been pancultured. Broad-spectrum IV antibiotics have been ordered. He has been transfused and is now admitted to the intensive care unit. PAST MEDICAL HISTORY: As above. PAST SURGICAL HISTORY: Includes trach and a G-tube. CURRENT MEDICATIONS: Reconciled and reviewed. ALLERGIES: None. FAMILY HISTORY: None. SOCIAL HISTORY: There is no known history of tobacco, ethanol, or drugs. REVIEW OF SYSTEMS: From the patient is unobtainable as he is nonverbal. PHYSICAL EXAMINATION: VITAL SIGNS: Temperature was , pulse 69, respirations 25, blood pressure 98/58. GENERAL: The patient is a chronically ill-appearing male, in no apparent distress. HEENT: He is noted to have some twitching of the face. NECK: Supple. HEART: Regular rate and rhythm. LUNGS: Clear. ABDOMEN: Soft, nontender, nondistended. EXTREMITIES: Significant for 1 to 2+ pitting edema. LABORATORY DATA: Labs showed a sodium of 109, potassium 6.2, chloride 77, bicarb 20, BUN 67, creatinine 1.4, glucose of 284. White count was 16,000, hemoglobin 7.4, hematocrit 22, platelet count of 75. ASSESSMENT: This is an unfortunate 74-year-old male with a history of multiorgan system failure including cirrhosis, chronic respiratory failure, COPD, stroke, encephalopathy, seizure disorder, admitted with severe hyponatremia and sepsis and anemia. PLAN: Aggressive fluid resuscitation. Renal consultation assist with hyponatremia management. Continue pressors. Cardiology consult. Broad-spectrum IV antibiotics. We will follow up pending cultures. ID consultation has also been obtained. Continue vent support, respiratory treatments. Pulmonary will assist with ventilator management. The patient will be transfused. We will check stool occult blood. The patient's status is currently critical and guarded. Chano Galeana M.D. DR: JESI JOB#: [id number] CC:
[2019-06-17 15:52] LABS: ANION GAP 6 mmol/L (5-15); BLOOD UREA NITROGEN 41 mg/dL (7-18); CALCIUM 7.8 MG/DL (8.5-10.1); CARBON DIOXIDE 21 MMOL/L (21-32); CHLORIDE 96 MMOL/L (98-107); POTASSIUM 5.7 MMOL/L (3.5-5.1); SODIUM 123 MMOL/L (136-145)
--- NOTE | 2019-06-17 16:08 | Consultation ---
History of Present Illness General Date patient seen: Jun 17, 2019 Chief Complaint: Hypothermia Present Illness HPI This is a 74-year-old male with multiple medical comorbidities who is a [facility] resident with history of anoxic encephalopathy who presented with sepsis. Patient found to be hypotensive and upon admission noted to be with leukocytosis , sepsis, hyperkalemia, abnormal labs. On admission identified to have decubitus ulcers requiring care and management. Surgery called to evaluate. Patient seen, patient evaluated, chart reviewed. Imaging reviewed. Allergies: Coded Allergies: No Known Allergies (Unverified , 07/04/18) Medication History Scheduled Aspirin* (Aspirin*), 81 MG GT DAILY Lansoprazole* (Lansoprazole*), 30 MG GT DAILY, (Reported) Levetiracetam (Keppra), 500 MG GT Q12HR Lisinopril (Lisinopril*), 20 MG GT DAILY, (Reported) Saccharomyces Boulardii (Florastor*), 250 MG GT TWICE A DAY, (Reported) Sitagliptin* (Januvia*), 100 MG GT DAILY, (Reported) Miscellaneous Medications Demeclocycline HCl (Demeclocycline HCl), 300 MG GT, (Reported) Insulin Detemir (Levemir Flexpen), 20 SUBQ, (Reported) Discontinued Medications 0.9 % Sodium Chloride (Sodium Chloride), 10 ML IVF Q8H PRN Discontinued Reason: Pt stopped taking med Amlodipine Besylate (Norvasc), 5 MG GT DAILY Discontinued Reason: Pt stopped taking med Ceftazidime Pentahydrate (Ceftazidime), 1 GM IJ EVERY 8 HOURS Discontinued Reason: Pt stopped taking med Chlorhexidine Gluconate* (Hibiclens*), 1 APPLIC TOPIC DAILY@1999 Discontinued Reason: Pt stopped taking med Clonidine HCl (Clonidine HCl), 0.1 MG GT Q4H PRN Discontinued Reason: Pt stopped taking med Insulin Aspart (Novolog Flexpen), 0 UNITS SUBQ EVERY 6 HOURS Discontinued Reason: Pt stopped taking med Insulin Detemir (Levemir Flexpen), 15 UNITS SUBQ BID Discontinued Reason: Pt stopped taking med Insulin Glargine (Lantus), 15 SUBQ BID, (Reported) Discontinued Reason: Pt stopped taking med Ipratropium/Albuterol Sulfate (DuoNeb 0.5-3(2.5)mg/3ml), 3 ML HHN Q6HR, ( Reported) Discontinued Reason: Pt stopped taking med Lansoprazole* (Lansoprazole*), 30 MG GT DAILY Discontinued Reason: Pt stopped taking med Vancomycin Hcl (Vancomycin Hcl), 1.5 GM IVPB DAILY, (Reported) Discontinued Reason: Pt stopped taking med Vancomycin Hcl (Vancomycin Hcl), 1.6 GM IV DAILY, (Reported) Discontinued Reason: Pt stopped taking med [Acetaminophen], 650 MG GT Q4H PRN Discontinued Reason: Pt stopped taking med [D50w], 50 ML IV Q30M PRN Discontinued Reason: Pt stopped taking med Patient History Limited by: medical condition History Provided By: Medical Record, PMD Healthcare decision maker Resuscitation status Advanced Directive on File Past Medical/Surgical History Past Medical/Surgical History: (1) Hyperkalemia (2) Anemia (3) Hyponatremia (4) Renal insufficiency (5) Pneumonia (6) Severe sepsis (7) Hyperglycemia (8) Hypothermia Review of Systems ROS Narrative Unable to obtain given patient's current medical condition Physical Exam General Appearance: mild distress Lines, tubes and drains: other HEENT: other Neck: normal inspection, other Respiratory/Chest: no respiratory distress, decreased breath sounds Cardiovascular/Chest: tachycardia Abdomen: soft, hypoactive bowel sounds, feeding tube Extremities: inflammation, slow capillary refill, other Skin Exam: warm/dry Neurologic: unresponsiveness Last 24 Hour Vital Signs Date Time Temp Pulse Resp B/P (MAP) Pulse Ox O2 Delivery O2 Flow Rate FiO2 06/17/19 15:23 98 36 40 06/17/19 13:20 91 31 40 06/17/19 12:00 Mechanical Ventilator 06/17/19 12:00 89 29 96/56 100 Mechanical Ventilator 60 06/17/19 12:00 89 06/17/19 11:29 91 31 40 06/17/19 11:00 90 29 97/53 100 Mechanical Ventilator 60 06/17/19 10:00 85 29 100/51 100 Mechanical Ventilator 60 06/17/19 09:07 85 30 40 06/17/19 09:00 83 30 102/59 100 Mechanical Ventilator 60 06/17/19 08:00 79 06/17/19 08:00 94.2 83 30 107/59 100 Mechanical Ventilator 60 06/17/19 08:00 Mechanical Ventilator 06/17/19 07:09 76 27 40 06/17/19 07:00 75 27 100/53 100 Mechanical Ventilator 60 06/17/19 06:30 76 27 98/53 100 Mechanical Ventilator 60 06/17/19 06:00 70 27 108/50 100 Mechanical Ventilator 60 06/17/19 05:30 73 27 107/55 100 Mechanical Ventilator 60 06/17/19 05:11 65 24 114/54 (74) 98 06/17/19 05:03 70 24 40 06/17/19 05:00 92.0 69 25 98/58 100 Mechanical Ventilator 60 06/17/19 04:00 69 06/17/19 04:00 Mechanical Ventilator 06/17/19 04:00 92.0 69 25 98/58 100 Mechanical Ventilator 60 06/17/19 03:30 68 25 101/56 100 Mechanical Ventilator 60 06/17/19 03:00 63 25 99/55 (70) 98 06/17/19 03:00 65 24 114/54 98 Mechanical Ventilator 60 06/17/19 02:50 84 26 40 06/17/19 02:30 63 24 99/52 98 Mechanical Ventilator 60 06/17/19 02:30 63 25 99/55 (70) 98 06/17/19 02:00 62 25 77/43 98 Mechanical Ventilator 60 06/17/19 02:00 62 25 77/43 (54) 98 06/17/19 01:30 61 25 98/46 97 Mechanical Ventilator 80 06/17/19 01:30 60 25 98/46 (63) 98 06/17/19 01:00 60 26 80/43 97 Mechanical Ventilator 80 06/17/19 01:00 60 26 80/43 (55) 97 06/17/19 00:50 81 23 40 06/17/19 00:30 61 26 79/40 97 Mechanical Ventilator 100 06/17/19 00:30 67 26 79/40 (53) 97 06/17/19 00:15 40 06/17/19 00:00 Mechanical Ventilator 06/17/19 00:00 Mechanical Ventilator 06/17/19 00:00 68 06/17/19 00:00 89.2 76 29 117/70 97 Mechanical Ventilator 100 06/17/19 00:00 89.0 67 28 117/70 (86) 97 06/16/19 23:40 90.4 65 25 112/59 100 Mechanical Ventilator 5.0 60 06/16/19 23:29 112/59 06/16/19 23:27 90.4 65 25 112/56 100 Mechanical Ventilator 5.0 60 06/16/19 23:00 79 24 40 06/16/19 22:59 99/50 06/16/19 22:29 104/44 06/16/19 22:14 92/53 06/16/19 21:59 82/50 06/16/19 21:45 88.7 61 25 85/46 100 Mechanical Ventilator 5.0 60 06/16/19 21:44 85/46 06/16/19 21:27 74 26 40 06/16/19 19:22 88.4 85 30 100/53 100 Mechanical Ventilator 50.0 40 06/16/19 18:55 71 26 40 06/16/19 17:22 50.0 40 06/16/19 17:07 69 30 100 Mechanical Ventilator 50.0 40 06/16/19 17:01 69 28 40 06/16/19 16:44 90.0 60 22 80/42 (55) 99 Mechanical Ventilator 06/16/19 16:44 90.0 60 22 80/42 99 Mechanical Ventilator Intake and Output 06/16/19 06/17/19 18:59 06:59 Intake Total 5756.25 ml Output Total 711 ml Balance 5045.25 ml Intake Oral 0 ml IV Total 5156.25 ml Blood Product 600 ml Output Urine Total 710 ml Stool Total 1 ml # Voids 1 # Bowel Movements 3 Laboratory Tests Test 06/16/19 17:00 06/16/19 17:50 06/16/19 18:42 06/17/19 01:20 White Blood Count 16.1 K/UL (4.8-10.8) H Red Blood Count 2.61 M/UL (4.70-6.10) L Hemoglobin 7.4 G/DL (14.2-18.0) L Hematocrit 22.7 % (42.0-52.0) L Mean Corpuscular Volume 87 FL (80-99) Mean Corpuscular Hemoglobin 28.3 PG (27.0-31.0) Mean Corpuscular Hemoglobin Concent 32.7 G/DL (32.0-36.0) Red Cell Distribution Width 15.0 % (11.6-14.8) H Platelet Count 75 K/UL (150-450) L Mean Platelet Volume 8.9 FL (6.5-10.1) Neutrophils (%) (Auto) % (45.0-75.0) Lymphocytes (%) (Auto) % (20.0-45.0) Monocytes (%) (Auto) % (1.0-10.0) Eosinophils (%) (Auto) % (0.0-3.0) Basophils (%) (Auto) % (0.0-2.0) Differential Total Cells Counted 100 Neutrophils % (Manual) 64 % (45-75) Lymphocytes % (Manual) 15 % (20-45) L Monocytes % (Manual) 11 % (1-10) H Eosinophils % (Manual) 0 % (0-3) Basophils % (Manual) 0 % (0-2) Band Neutrophils 10 % (0-8) H Nucleated Red Blood Cells 17 /100 WBC Platelet Estimate Decreased L Platelet Morphology Normal Hypochromasia 1+ Anisocytosis 1+ Prothrombin Time 11.4 SEC (9.30-11.50) Prothromb Time International Ratio 1.1 (0.9-1.1) Activated Partial Thromboplast Time 38 SEC (23-33) H Sodium Level 109 MMOL/L (136-145) *L Potassium Level 6.2 MMOL/L (3.5-5.1) *H 6.0 MMOL/L (3.5-5.1) *H Chloride Level 77 MMOL/L (98-107) L Carbon Dioxide Level 20 MMOL/L (21-32) L Anion Gap 12 mmol/L (5-15) Blood Urea Nitrogen 67 mg/dL (7-18) H Creatinine 1.4 MG/DL (0.55-1.30) H Estimat Glomerular Filtration Rate mL/min (>60) Glucose Level 284 MG/DL (74-106) H Lactic Acid Level 7.30 mmol/L (0.4-2.0) H 5.50 mmol/L (0.66-2.22) H 2.80 mmol/L (0.4-2.0) H Calcium Level 8.9 MG/DL (8.5-10.1) Total Bilirubin 0.3 MG/DL (0.2-1.0) Aspartate Amino Transf (AST/SGOT) 41 U/L (15-37) H Alanine Aminotransferase (ALT/SGPT) 35 U/L (12-78) Alkaline Phosphatase 171 U/L (46-116) H Total Creatine Kinase 90 U/L (26-308) Creatine Kinase MB 5.7 NG/ML (0.0-3.6) H Creatine Kinase MB Relative Index 6.3 Troponin I 0.000 ng/mL (0.000-0.056) Pro-B-Type Natriuretic Peptide 187 pg/mL (0-125) H Total Protein 8.2 G/DL (6.4-8.2) Albumin 1.7 G/DL (3.4-5.0) L Globulin 6.5 g/dL Albumin/Globulin Ratio 0.3 (1.0-2.7) L Urine Color Yellow Urine Appearance Clear Urine pH 5 (4.5-8.0) Urine Specific Grulla 1.015 (1.005-1.035) Urine Protein Negative (NEGATIVE) Urine Glucose (UA) Negative (NEGATIVE) Urine Ketones Negative (NEGATIVE) Urine Blood Negative (NEGATIVE) Urine Nitrite Negative (NEGATIVE) Urine Bilirubin Negative (NEGATIVE) Urine Urobilinogen Normal MG/DL (0.0-1.0) Urine Leukocyte Esterase 1+ (NEGATIVE) H Urine RBC 0-2 /HPF (0 - 0) H Urine WBC 2-4 /HPF (0 - 0) Urine Squamous Epithelial Cells None /LPF (NONE/OCC) Urine Amorphous Sediment Moderate /LPF (NONE) H Urine Bacteria Few /HPF (NONE) Test 06/17/19 06:05 06/17/19 10:45 06/17/19 11:50 06/17/19 15:05 White Blood Count 18.1 K/UL (4.8-10.8) H Red Blood Count 3.17 M/UL (4.70-6.10) L Hemoglobin 9.4 G/DL (14.2-18.0) L Hematocrit 28.1 % (42.0-52.0) L Mean Corpuscular Volume 89 FL (80-99) Mean Corpuscular Hemoglobin 29.7 PG (27.0-31.0) Mean Corpuscular Hemoglobin Concent 33.5 G/DL (32.0-36.0) Red Cell Distribution Width 15.1 % (11.6-14.8) H Platelet Count 61 K/UL (150-450) L Mean Platelet Volume 9.1 FL (6.5-10.1) Neutrophils (%) (Auto) % (45.0-75.0) Lymphocytes (%) (Auto) % (20.0-45.0) Monocytes (%) (Auto) % (1.0-10.0) Eosinophils (%) (Auto) % (0.0-3.0) Basophils (%) (Auto) % (0.0-2.0) Differential Total Cells Counted 100 Neutrophils % (Manual) 85 % (45-75) H Lymphocytes % (Manual) 4 % (20-45) L Monocytes % (Manual) 4 % (1-10) Eosinophils % (Manual) 0 % (0-3) Basophils % (Manual) 0 % (0-2) Band Neutrophils 7 % (0-8) Nucleated Red Blood Cells 6 /100 WBC Platelet Estimate Decreased L Platelet Morphology Normal Anisocytosis 1+ Sodium Level 116 MMOL/L (136-145) *L 123 MMOL/L (136-145) L Potassium Level 6.0 MMOL/L (3.5-5.1) *H 5.7 MMOL/L (3.5-5.1) H Chloride Level 90 MMOL/L (98-107) L 96 MMOL/L (98-107) L Carbon Dioxide Level 20 MMOL/L (21-32) L 21 MMOL/L (21-32) Anion Gap 6 mmol/L (5-15) 6 mmol/L (5-15) Blood Urea Nitrogen 53 mg/dL (7-18) H 41 mg/dL (7-18) H Creatinine 1.0 MG/DL (0.55-1.30) 1.0 MG/DL (0.55-1.30) Estimat Glomerular Filtration Rate mL/min (>60) mL/min (>60) Glucose Level 258 MG/DL (74-106) H 202 MG/DL (74-106) H Lactic Acid Level 2.20 mmol/L (0.4-2.0) H 1.80 mmol/L (0.66-2.22) Calcium Level 8.2 MG/DL (8.5-10.1) L 7.8 MG/DL (8.5-10.1) L Total Bilirubin 0.5 MG/DL (0.2-1.0) Aspartate Amino Transf (AST/SGOT) 38 U/L (15-37) H Alanine Aminotransferase (ALT/SGPT) 30 U/L (12-78) Alkaline Phosphatase 143 U/L (46-116) H Total Protein 7.1 G/DL (6.4-8.2) Albumin 1.4 G/DL (3.4-5.0) L Globulin 5.7 g/dL Albumin/Globulin Ratio 0.2 (1.0-2.7) L Thyroid Stimulating Hormone (TSH) 1.708 uiU/mL (0.358-3.740) Cortisol AM Sample 11.7 UG/DL Random Vancomycin Level 14.6 ug/mL Legionella pneumophila Group 1 Ab Pending Legionella pneumophilia IgM Group 1 Pending Mycoplasma pneumoniae IgG Antibody Pending Mycoplasma pneumoniae IgM Ab Titer Pending Urine Osmolality 435 mOsm/kg (429-449) Microbiology Date/Time Source Procedure Growth Status 06/16/19 16:50 Sputum Gram Stain - Final Resulted 06/16/19 16:50 Sputum Sputum Culture Pending Resulted 06/16/19 18:50 Rectum Received Height (Feet): 5 Height (Inches): 8.00 Weight (Pounds): 215 Medications Current Medications Medications (Trade) Dose Ordered Sig/Derrick Route PRN Reason Start Time Stop Time Status Last Admin Dose Admin Aspirin (ASA) 81 mg DAILY GT 06/17/19 09:00 07/17/19 08:59 Dextrose (Dextrose 50%) 25 ml Q30M PRN IV Hypoglycemia 06/17/19 08:00 07/17/19 07:59 Dextrose (Dextrose 50%) 50 ml Q30M PRN IV Hypoglycemia 06/17/19 08:00 07/17/19 07:59 Dextrose/Sodium Chloride 1,000 ml @ 150 mls/hr Q6H40M IV 06/16/19 20:15 07/16/19 20:14 06/17/19 09:00 Insulin Aspart (NovoLOG) BEFORE MEALS AND HS SUBQ 06/17/19 11:30 07/17/19 11:29 06/17/19 11:35 Lansoprazole (Prevacid) 30 mg DAILY GT 06/17/19 09:00 07/17/19 08:59 06/17/19 08:35 Levetiracetam (Keppra) 500 mg Q12HR GT 06/16/19 21:00 07/16/19 20:59 06/17/19 08:35 Piperacillin Sod/ Tazobactam Sod 3.375 gm/Sodium Chloride 110 ml @ 27.5 mls/hr 0230,1030,1830 IVPB 06/17/19 02:30 06/24/19 02:29 06/17/19 11:29 Vancomycin HCl (Vanco rx to dose) 1 ea DAILY PRN MISC Per rx protocol 06/16/19 20:15 07/16/19 20:14 Vancomycin/Sodium Chloride 275 ml @ 137.5 mls/ hr Q24H IVPB 06/17/19 21:00 06/22/19 20:59 Assessment/Plan Problem List: (1) Leukocytosis ICD Codes: D72.829 - Elevated white blood cell count, unspecified SNOMED: 084683247, [id number] (2) Decubitus skin ulcer Assessment & Plan: Pt presented on admission with multiple pressure injuries. Resolving pressure injury posterior neck under collar of trach. Base of wound has mostly pink epithelial with scattered small partial thickness wounds (L)2cm x (W)1.6cm. Tracheal stoma noted to have denuded area R side of stoma.. Resolving full thickness sacral pressure injury L sacrum (L)2.5cm x (W)1cm x (D) 0.2cm.Ludell granulation at base of wound . Inferior but in close proximity to L sacral wound ,pt noted to have darker skin tone with scattered areas that are fluctuant and partially opened with small amt of sanguineous exudate noted (L) 9cm x (W)11.5cm. Resolving pressure injury noted to base of scrotum . Base of wound pink and dry (L)1cm x (W)0.8cm. Unstageable pressure injury noted to R heel extending into plantar aspect of R heel.At plantar aspect of heel soft necrosis noted that is oozing small amt brown purulent exudate(L)3cm x (W)3.5cm. Surrounding the area of necrosis, wound is black with fluctuance and marginal erythema along edges. Wound is malodorous.(L)8cm x (W)9.5cm. L heel is boggy with non-blanching erythema. Tx.Plan: Apply Cavilon Skin Barrier to posterior neck. Cover with Optifoam drsg. Change every 3 days and prn. Apply Moisture Barrier Paste to sacrum. Cover with Optifoam drsg. Change every 3days and prn. Apply Moisture Barrier Paste to Scrotum with each incontinence care. Apply Betadine to R heel . Cover with ABD pad and wrap with kerlix Daily and prn. Apply Cavilon Skin Barrier to R heel. Cover with Optifoam drsg. Change every 7 days and prn. APM/LARISSA Mattress overlay. Reposition at least every 2hours or as tolerated. Off-load heels with pillow. ICD Codes: L89.90 - Pressure ulcer of unspecified site, unspecified stage SNOMED: 837636640 (3) Severe sepsis Assessment & Plan: Leukocytosis, lactic acidosis, hyperkalemia, hyponatremia. Severe sepsis Fluid resuscitation IV antibiotics as per infectious disease Trend labs Wound care as above We will follow with recommendations Thank you for this consultation ICD Codes: A41.9 - Sepsis, unspecified organism; R65.20 - Severe sepsis without septic shock SNOMED: [id number] Abdoul Lucas Jun 17, 2019 16:08
--- NOTE | 2019-06-17 17:30 | Consultation ---
DATE OF CONSULTATION: 06/17/2019 CONSULTING PHYSICIAN: Nik Deras M.D. REFERRING PHYSICIAN: Chano Galeana M.D. REASON FOR CONSULTATION: Hyponatremia, azotemia. HISTORY OF PRESENT ILLNESS: The [facility] a [facility] He is chronic tracheostomy ventilator dependent. Has a history of severe brain injury, quadriplegia, cirrhosis, hypertension, cerebrovascular disease, seizure disorder, COPD, prior cardiac arrest, chronic congestive heart failure, type 2 diabetes. Has severe abnormal laboratories. Presented with hypotension and hypothermia. ALLERGIES: None known. MEDICATIONS: Reviewed from the [facility] include aspirin, demeclocycline, Florastor, Januvia, lansoprazole, Levemir insulin, Keppra, lisinopril. REVIEW OF SYSTEMS AND PAST MEDICAL HISTORY: The patient is incapable. PHYSICAL EXAMINATION: GENERAL: The patient is seen in the ICU. He is on a ventilator. He has a Levophed drip. VITAL SIGNS: Blood pressure 100/53, pulse 75, respirations 27. HEAD, EYES, EARS, NOSE, AND THROAT: Sclerae are nonicteric. He is not following with his eyes. Oral mucosa moist. He has tracheostomy. LUNGS: Bilateral rhonchi. HEART: Regular rhythm and tachycardic. No murmur heard. ABDOMEN: Obese and soft. I am unable to feel liver or spleen. EXTREMITIES: Show trace edema. NEUROLOGIC: Quadriplegia. Unresponsive. LABORATORY DATA: Review of labs as follows. Urinalysis has a specific gravity of 1.015, 0 to 2 rbc's, and 2 to 4 red cells per high-power field. The initial sodium 109, potassium 6.2, BUN 67, creatinine 1.4, glucose 284. Lactic acid 7.3 and 5.5. Troponin is 0. Albumin 1.7. Most recently on 06/17/2019 sodium 116, potassium 6, chloride 90, CO2 20, BUN 53, and creatinine 1.0 with a glucose of 258. Lactic acid 2.2. Albumin 1.4. IMPRESSION: 1. Hyponatremia, likely chronic, possibly SIADH. He is on demeclocycline which is likely for chronic hyponatremia. 2. Severe brain injury. 3. Hyperkalemia, likely due to dehydration and ALBARO inhibitor. 4. Pneumonia. 5. Septic shock. 6. Ventilator-dependent respiratory failure. 7. History of cirrhosis. 8. History of diabetes. PLAN: At this time, his prognosis is very poor. We will continue with saline IV in the small amount and gradual correction of his sodium, which should not be corrected rapidly. He will be treated for sepsis. Avoid potassium-retaining medications. His condition is critical and guarded. Nik Deras M.D. DR: VIDYA JOB#: [id number] CC:
[2019-06-17 18:19] LABS: ALANINE AMINOTRANSFERASE 27 U/L (12-78); ALBUMIN 1.4 G/DL (3.4-5.0); ALBUMIN/GLOBULIN RATIO 0.3 (1.0-2.7); ALKALINE PHOSPHATASE 129 U/L (46-116); ANION GAP 6 mmol/L (5-15); ASPARTATE AMINO TRANSFERASE 32 U/L (15-37); BILIRUBIN,TOTAL 0.4 MG/DL (0.2-1.0); BLOOD UREA NITROGEN 41 mg/dL (7-18); CARBON DIOXIDE 22 MMOL/L (21-32); CHLORIDE 96 MMOL/L (98-107); POTASSIUM 5.7 MMOL/L (3.5-5.1); SODIUM 123 MMOL/L (136-145)
[2019-06-17] MEDS: Vancomycin 1.5gm/NS Premix IVPB SCH (21:04)
--- NOTE | 2019-06-17 23:15 | Progress Note ---
DATE: 06/17/2019 CARDIOLOGY PROGRESS NOTE SUBJECTIVE: The patient remains in the intensive care unit. Critical condition. Guarded prognosis. He remains on hypotonic IV fluid hydration and ventilator support. OBJECTIVE: VITAL SIGNS: Blood pressure 114/54, pulse 65, respirations 24, and temperature 92. NECK: Thin trach secretions. LUNGS: Coarse breath sounds. Scattered rhonchi. HEART: Regular rhythm and rate. Normal S1, S2. ABDOMEN: Soft. G-tube intact. EXTREMITIES: No edema. LABORATORY DATA: White count 18, hemoglobin 9.4. Sodium 116, potassium 6, bicarb 20, chloride 90, BUN 53, creatinine 1. Lactic acid 2.2. Cortisol is normal and albumin is 1.4. TSH 1.7. IMPRESSION: 1. Remains critical and guarded. 2. Sepsis. 3. Hypovolemia. 4. Hypothermia. 5. Shock. 6. Lactic acidosis. 7. Hyponatremia. 8. Hyperkalemia. 9. Prerenal azotemia. 10. Acute kidney injury. 11. Severe protein-calorie malnutrition. 12. Chronic respiratory failure. PLAN: 1. Saline hydration. 2. Volume support. 3. Antimicrobials. 4. Respiratory hygiene. 5. Ventilator support. 6. Follow up culture results. 7. Warming measures. 8. Recheck potassium level following dose of Kayexalate. 9. Protein supplement by feeding tube. [place] M.D. DR: RONALD JOB#: [id number] CC:
[2019-06-18] VITALS (49 sets, daily range): BP systolic 81–114; BP diastolic 40–66
[2019-06-18] MEDS: Piperacillin/Tazobactam 3.375 GM in NS 110 ML IVPB SCH ×3 (02:00→17:50)
[2019-06-18] MEDS: D5NS 1,000 ML IV SCH ×3 (06:19→17:50)
[2019-06-18] MEDS: NovoLOG Insulin Flexpen SUBQ SCH ×4 (06:20→21:02)
[2019-06-18 07:05] LABS: ALANINE AMINOTRANSFERASE 27 U/L (12-78); ALBUMIN 1.3 G/DL (3.4-5.0); ALBUMIN/GLOBULIN RATIO 0.2 (1.0-2.7); ALKALINE PHOSPHATASE 120 U/L (46-116); ANION GAP 7 mmol/L (5-15); BILIRUBIN,TOTAL 0.4 MG/DL (0.2-1.0); BLOOD UREA NITROGEN 27 mg/dL (7-18); CARBON DIOXIDE 19 MMOL/L (21-32); CHLORIDE 102 MMOL/L (98-107); CREATININE 0.9 MG/DL (0.55-1.30); SODIUM 128 MMOL/L (136-145)
[2019-06-18 07:08] LABS: HEMATOCRIT 23.6 % (42.0-52.0); HEMOGLOBIN 7.9 G/DL (14.2-18.0); MEAN CORPUSCULAR VOLUME 89 FL (80-99); PLATELET COUNT 61 K/UL (150-450); RED BLOOD COUNT 2.67 M/UL (4.70-6.10); RED CELL DISTRIBUTION WIDTH 15.5 % (11.6-14.8); WHITE BLOOD COUNT 11.3 K/UL (4.8-10.8)
[2019-06-18 08:03] LABS: ASPARTATE AMINO TRANSFERASE 39 U/L (15-37)
[2019-06-18] MEDS: levETIRAcetam 500mg/5ml Liquid GT SCH ×2 (08:20→20:58)
[2019-06-18] MEDS: Aspirin Baby 81mg GT SCH (08:20)
--- NOTE | 2019-06-18 10:36 | Nephrology Progress Note ---
Assessment/Plan Assessment/Plan: A/P 1. 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 Severe brain injury. Chronic 3. Hyperkalemia, likely due to dehydration and ALBARO inhibitor. - resolved. Hold ALBARO-I 4. Septic shock. - PNA - Abx per ID 5. Ventilator-dependent respiratory failure.Per pulm Subjective Date patient seen: Jun 18, 2019 Time patient seen: 10:33 ROS Limited/Unobtainable: Yes Allergies: Coded Allergies: No Known Allergies (Unverified , 07/04/18) Subjective Patient trached, nonverbal Objective Last 24 Hour Vital Signs Date Time Temp Pulse Resp B/P (MAP) Pulse Ox O2 Delivery O2 Flow Rate FiO2 06/18/19 10:00 92 31 108/58 99 Mechanical Ventilator 60 06/18/19 09:00 91 33 40 06/18/19 09:00 90 34 103/56 99 Mechanical Ventilator 60 06/18/19 08:30 92 36 108/51 97 Mechanical Ventilator 60 06/18/19 08:20 94/56 06/18/19 08:18 Mechanical Ventilator 06/18/19 08:00 97.0 91 32 94/56 95 Mechanical Ventilator 60 06/18/19 08:00 95 06/18/19 07:30 91 32 111/62 96 Mechanical Ventilator 60 06/18/19 07:00 92 32 110/64 96 Mechanical Ventilator 60 06/18/19 06:59 96 28 40 06/18/19 06:30 93 28 100/60 97 Mechanical Ventilator 60 06/18/19 06:00 94 28 110/59 97 Mechanical Ventilator 60 06/18/19 05:30 95 28 113/59 97 Mechanical Ventilator 60 06/18/19 05:10 97 30 40 06/18/19 05:00 94 28 102/52 97 Mechanical Ventilator 60 06/18/19 04:30 93 28 102/51 97 Mechanical Ventilator 60 06/18/19 04:00 96 06/18/19 04:00 97.8 92 28 98/47 97 Mechanical Ventilator 60 06/18/19 03:30 92 29 101/51 97 Mechanical Ventilator 60 06/18/19 03:13 94 31 40 06/18/19 03:00 92 29 103/49 98 Mechanical Ventilator 60 06/18/19 02:30 91 29 98/51 98 Mechanical Ventilator 60 06/18/19 02:00 92 29 100/51 98 Mechanical Ventilator 60 06/18/19 01:30 92 30 100/51 98 Mechanical Ventilator 60 06/18/19 01:00 91 31 103/49 98 Mechanical Ventilator 60 06/18/19 00:45 91 30 40 06/18/19 00:30 91 31 98/53 99 Mechanical Ventilator 60 06/18/19 00:00 99 06/18/19 00:00 98.0 92 31 94/60 100 Mechanical Ventilator 60 06/17/19 22:40 104 38 40 06/17/19 22:30 93 31 97/51 100 Mechanical Ventilator 60 06/17/19 22:00 94 30 97/51 100 Mechanical Ventilator 60 06/17/19 21:30 94 30 103/47 100 Mechanical Ventilator 60 06/17/19 21:18 88/42 06/17/19 21:00 95 30 88/42 100 Mechanical Ventilator 60 06/17/19 20:30 100 31 80/42 100 Mechanical Ventilator 60 06/17/19 20:30 106 41 40 06/17/19 20:00 97.6 100 28 72/42 100 Mechanical Ventilator 60 06/17/19 19:30 100 28 70/42 100 Mechanical Ventilator 60 06/17/19 19:10 107 37 40 06/17/19 18:00 106 28 96/56 100 Mechanical Ventilator 60 06/17/19 18:00 Mechanical Ventilator 06/17/19 17:28 107 36 40 06/17/19 17:00 105 35 99/48 100 Mechanical Ventilator 60 06/17/19 16:00 104 06/17/19 16:00 97.0 100 34 98/47 100 Mechanical Ventilator 60 06/17/19 15:23 98 36 40 06/17/19 15:00 97 34 103/52 100 Mechanical Ventilator 60 06/17/19 14:00 92 33 93/53 100 Mechanical Ventilator 60 06/17/19 13:20 91 31 40 06/17/19 13:00 96.3 91 31 103/55 100 Mechanical Ventilator 60 06/17/19 12:00 Mechanical Ventilator 06/17/19 12:00 89 29 96/56 100 Mechanical Ventilator 60 06/17/19 12:00 89 06/17/19 11:29 91 31 40 06/17/19 11:00 90 29 97/53 100 Mechanical Ventilator 60 Intake and Output 06/17/19 06/18/19 19:00 07:00 Intake Total 1433.878 ml 1797.50 ml Output Total 990 ml 1270 ml Balance 443.878 ml 527.50 ml Intake Oral 0 ml 0 ml IV Total 1433.878 ml 1797.50 ml Output Urine Total 990 ml 1270 ml # Bowel Movements 4 Laboratory Tests 06/17/19 10:45: Lactic Acid Level 1.80, Random Vancomycin Level 14.6, Legionella pneumophila Group 1 Ab [Pending], Legionella pneumophilia IgM Group 1 [Pending], Mycoplasma pneumoniae IgG Antibody [Pending], Mycoplasma pneumoniae IgM Ab Titer [Pending] 06/17/19 11:50: Urine Osmolality 435 06/17/19 15:05: Sodium Level 123L, Potassium Level 5.7H, Chloride Level 96L, Carbon Dioxide Level 21, Anion Gap 6, Blood Urea Nitrogen 41H, Creatinine 1.0, Estimat Glomerular Filtration Rate , Glucose Level 202H, Calcium Level 7.8L 06/17/19 17:45: Sodium Level 123L, Potassium Level 5.7H, Chloride Level 96L, Carbon Dioxide Level 22, Anion Gap 6, Blood Urea Nitrogen 41H, Creatinine 1.0, Estimat Glomerular Filtration Rate , Glucose Level 173H, Calcium Level 8.0L, Total Bilirubin 0.4, Aspartate Amino Transf (AST/SGOT) 32, Alanine Aminotransferase ( ALT/SGPT) 27, Alkaline Phosphatase 129H, Total Protein 6.8, Albumin 1.4L, Globulin 5.4, Albumin/Globulin Ratio 0.3L 06/18/19 05:24: White Blood Count 11.3H, Red Blood Count 2.67L, Hemoglobin 7.9L, Hematocrit 23.6L, Mean Corpuscular Volume 89, Mean Corpuscular Hemoglobin 29.5, Mean Corpuscular Hemoglobin Concent 33.3, Red Cell Distribution Width 15.5H, Platelet Count 61L, Mean Platelet Volume 9.1, Neutrophils (%) (Auto) , Lymphocytes (%) (Auto) , Monocytes (%) (Auto) , Eosinophils (%) (Auto) , Basophils (%) (Auto) , Differential Total Cells Counted 100, Neutrophils % ( Manual) 73, Lymphocytes % (Manual) 17L, Monocytes % (Manual) 10, Eosinophils % ( Manual) 0, Basophils % (Manual) 0, Band Neutrophils 0, Nucleated Red Blood Cells 2, Platelet Estimate DecreasedL, Platelet Morphology Normal, Hypochromasia , Anisocytosis 1+, Sodium Level 128L, Potassium Level 5.0, Chloride Level 102, Carbon Dioxide Level 19L, Anion Gap 7, Blood Urea Nitrogen 27H, Creatinine 0.9, Estimat Glomerular Filtration Rate , Glucose Level 200H, Calcium Level 8.0L, Total Bilirubin 0.4, Aspartate Amino Transf (AST/SGOT) 39H, Alanine Aminotransferase (ALT/SGPT) 27, Alkaline Phosphatase 120H, Total Protein 6.5, Albumin 1.3L, Globulin 5.2, Albumin/Globulin Ratio 0.2L 06/18/19 10:00: Stool Occult Blood [Pending] Height (Feet): 5 Height (Inches): 8.00 Weight (Pounds): 220 General Appearance: lethargic EENT: normal ENT inspection Neck: normal alignment Cardiovascular: normal rate, regular rhythm Respiratory/Chest: rhonchi - bilaterally Edema: no edema noted Arm (L), no edema noted Arm (R), no edema noted Leg (L), no edema noted Leg (R), no edema noted Pedal (L), no edema noted Pedal (R), no edema noted Generalized Arpit Villegas MD Jun 18, 2019 10:36
--- NOTE | 2019-06-18 10:41 | Infectious Diseases Prog Note ---
Assessment/Plan Assessment/Plan antibiotics : vancomycin iv, zosyn A 1. gram negative pneumonia 2. shock 3. cirrhosis 4. respiratory failure 5. seizures P 1. continue vancomycin iv, zosyn 2. will follow up cultures Subjective ROS Limited/Unobtainable: Yes Allergies: Coded Allergies: No Known Allergies (Unverified , 07/04/18) Objective Vital Signs Last 24 Hour Vital Signs Date Time Temp Pulse Resp B/P (MAP) Pulse Ox O2 Delivery O2 Flow Rate FiO2 06/18/19 10:00 92 31 108/58 99 Mechanical Ventilator 60 06/18/19 09:00 91 33 40 06/18/19 09:00 90 34 103/56 99 Mechanical Ventilator 60 06/18/19 08:30 92 36 108/51 97 Mechanical Ventilator 60 06/18/19 08:20 94/56 06/18/19 08:18 Mechanical Ventilator 06/18/19 08:00 97.0 91 32 94/56 95 Mechanical Ventilator 60 06/18/19 08:00 95 06/18/19 07:30 91 32 111/62 96 Mechanical Ventilator 60 06/18/19 07:00 92 32 110/64 96 Mechanical Ventilator 60 06/18/19 06:59 96 28 40 06/18/19 06:30 93 28 100/60 97 Mechanical Ventilator 60 06/18/19 06:00 94 28 110/59 97 Mechanical Ventilator 60 06/18/19 05:30 95 28 113/59 97 Mechanical Ventilator 60 06/18/19 05:10 97 30 40 06/18/19 05:00 94 28 102/52 97 Mechanical Ventilator 60 06/18/19 04:30 93 28 102/51 97 Mechanical Ventilator 60 06/18/19 04:00 96 06/18/19 04:00 97.8 92 28 98/47 97 Mechanical Ventilator 60 06/18/19 03:30 92 29 101/51 97 Mechanical Ventilator 60 06/18/19 03:13 94 31 40 06/18/19 03:00 92 29 103/49 98 Mechanical Ventilator 60 06/18/19 02:30 91 29 98/51 98 Mechanical Ventilator 60 06/18/19 02:00 92 29 100/51 98 Mechanical Ventilator 60 06/18/19 01:30 92 30 100/51 98 Mechanical Ventilator 60 06/18/19 01:00 91 31 103/49 98 Mechanical Ventilator 60 06/18/19 00:45 91 30 40 06/18/19 00:30 91 31 98/53 99 Mechanical Ventilator 60 06/18/19 00:00 99 06/18/19 00:00 98.0 92 31 94/60 100 Mechanical Ventilator 60 06/17/19 22:40 104 38 40 06/17/19 22:30 93 31 97/51 100 Mechanical Ventilator 60 06/17/19 22:00 94 30 97/51 100 Mechanical Ventilator 60 06/17/19 21:30 94 30 103/47 100 Mechanical Ventilator 60 06/17/19 21:18 88/42 06/17/19 21:00 95 30 88/42 100 Mechanical Ventilator 60 06/17/19 20:30 100 31 80/42 100 Mechanical Ventilator 60 06/17/19 20:30 106 41 40 06/17/19 20:00 97.6 100 28 72/42 100 Mechanical Ventilator 60 06/17/19 19:30 100 28 70/42 100 Mechanical Ventilator 60 06/17/19 19:10 107 37 40 06/17/19 18:00 106 28 96/56 100 Mechanical Ventilator 60 06/17/19 18:00 Mechanical Ventilator 06/17/19 17:28 107 36 40 06/17/19 17:00 105 35 99/48 100 Mechanical Ventilator 60 06/17/19 16:00 104 06/17/19 16:00 97.0 100 34 98/47 100 Mechanical Ventilator 60 06/17/19 15:23 98 36 40 06/17/19 15:00 97 34 103/52 100 Mechanical Ventilator 60 06/17/19 14:00 92 33 93/53 100 Mechanical Ventilator 60 06/17/19 13:20 91 31 40 06/17/19 13:00 96.3 91 31 103/55 100 Mechanical Ventilator 60 06/17/19 12:00 Mechanical Ventilator 06/17/19 12:00 89 29 96/56 100 Mechanical Ventilator 60 06/17/19 12:00 89 06/17/19 11:29 91 31 40 06/17/19 11:00 90 29 97/53 100 Mechanical Ventilator 60 Height (Feet): 5 Height (Inches): 8.00 Weight (Pounds): 220 HEENT: status post trach Respiratory/Chest: lungs clear Cardiovascular: normal rate, regular rhythm, no gallop/murmur Abdomen: soft, non tender, other - GT Extremities: other - + edema, right IJ catheter Microbiology Date/Time Source Procedure Growth Status 06/16/19 17:15 Blood Blood Culture - Preliminary NO GROWTH AFTER 24 HOURS Resulted 06/16/19 17:00 Blood Blood Culture - Preliminary NO GROWTH AFTER 24 HOURS Resulted 06/16/19 18:42 Nasal Nares Left MRSA Culture - Final NO METHICILLIN RESISTANT STAPH AUREUS... Complete 06/16/19 16:50 Sputum Gram Stain - Final Resulted 06/16/19 16:50 Sputum Culture - Preliminary Gram Negative Bacillus 1 Resulted 06/16/19 18:50 Rectum VRE Culture - Final Enterococcus Faecalis - Vre Complete Laboratory Tests Test 06/17/19 10:45 06/17/19 11:50 06/17/19 15:05 06/17/19 17:45 Lactic Acid Level 1.80 mmol/L (0.66-2.22) Random Vancomycin Level 14.6 ug/mL Legionella pneumophila Group 1 Ab Pending Legionella pneumophilia IgM Group 1 Pending Mycoplasma pneumoniae IgG Antibody Pending Mycoplasma pneumoniae IgM Ab Titer Pending Urine Osmolality 435 mOsm/kg (429-449) Sodium Level 123 MMOL/L (136-145) L 123 MMOL/L (136-145) L Potassium Level 5.7 MMOL/L (3.5-5.1) H 5.7 MMOL/L (3.5-5.1) H Chloride Level 96 MMOL/L (98-107) L 96 MMOL/L (98-107) L Carbon Dioxide Level 21 MMOL/L (21-32) 22 MMOL/L (21-32) Anion Gap 6 mmol/L (5-15) 6 mmol/L (5-15) Blood Urea Nitrogen 41 mg/dL (7-18) H 41 mg/dL (7-18) H Creatinine 1.0 MG/DL (0.55-1.30) 1.0 MG/DL (0.55-1.30) Estimat Glomerular Filtration Rate mL/min (>60) mL/min (>60) Glucose Level 202 MG/DL (74-106) H 173 MG/DL (74-106) H Calcium Level 7.8 MG/DL (8.5-10.1) L 8.0 MG/DL (8.5-10.1) L Total Bilirubin 0.4 MG/DL (0.2-1.0) Aspartate Amino Transf (AST/SGOT) 32 U/L (15-37) Alanine Aminotransferase (ALT/SGPT) 27 U/L (12-78) Alkaline Phosphatase 129 U/L (46-116) H Total Protein 6.8 G/DL (6.4-8.2) Albumin 1.4 G/DL (3.4-5.0) L Globulin 5.4 g/dL Albumin/Globulin Ratio 0.3 (1.0-2.7) L Test 06/18/19 05:24 06/18/19 10:00 White Blood Count 11.3 K/UL (4.8-10.8) H Red Blood Count 2.67 M/UL (4.70-6.10) L Hemoglobin 7.9 G/DL (14.2-18.0) L Hematocrit 23.6 % (42.0-52.0) L Mean Corpuscular Volume 89 FL (80-99) Mean Corpuscular Hemoglobin 29.5 PG (27.0-31.0) Mean Corpuscular Hemoglobin Concent 33.3 G/DL (32.0-36.0) Red Cell Distribution Width 15.5 % (11.6-14.8) H Platelet Count 61 K/UL (150-450) L Mean Platelet Volume 9.1 FL (6.5-10.1) Neutrophils (%) (Auto) % (45.0-75.0) Lymphocytes (%) (Auto) % (20.0-45.0) Monocytes (%) (Auto) % (1.0-10.0) Eosinophils (%) (Auto) % (0.0-3.0) Basophils (%) (Auto) % (0.0-2.0) Differential Total Cells Counted 100 Neutrophils % (Manual) 73 % (45-75) Lymphocytes % (Manual) 17 % (20-45) L Monocytes % (Manual) 10 % (1-10) Eosinophils % (Manual) 0 % (0-3) Basophils % (Manual) 0 % (0-2) Band Neutrophils 0 % (0-8) Nucleated Red Blood Cells 2 /100 WBC Platelet Estimate Decreased L Platelet Morphology Normal Hypochromasia Anisocytosis 1+ Sodium Level 128 MMOL/L (136-145) L Potassium Level 5.0 MMOL/L (3.5-5.1) Chloride Level 102 MMOL/L (98-107) Carbon Dioxide Level 19 MMOL/L (21-32) L Anion Gap 7 mmol/L (5-15) Blood Urea Nitrogen 27 mg/dL (7-18) H Creatinine 0.9 MG/DL (0.55-1.30) Estimat Glomerular Filtration Rate mL/min (>60) Glucose Level 200 MG/DL (74-106) H Calcium Level 8.0 MG/DL (8.5-10.1) L Total Bilirubin 0.4 MG/DL (0.2-1.0) Aspartate Amino Transf (AST/SGOT) 39 U/L (15-37) H Alanine Aminotransferase (ALT/SGPT) 27 U/L (12-78) Alkaline Phosphatase 120 U/L (46-116) H Total Protein 6.5 G/DL (6.4-8.2) Albumin 1.3 G/DL (3.4-5.0) L Globulin 5.2 g/dL Albumin/Globulin Ratio 0.2 (1.0-2.7) L Stool Occult Blood Pending Current Medications Medications (Trade) Dose Ordered Sig/Derrick Route PRN Reason Start Time Stop Time Status Last Admin Dose Admin Aspirin (ASA) 81 mg DAILY GT 06/17/19 09:00 07/17/19 08:59 06/18/19 08:20 Chlorhexidine Gluconate (Gwendolyn-Hex 2%) 1 applic DAILY@2000 TOPIC 06/18/19 20:00 07/18/19 19:59 Dextrose (Dextrose 50%) 25 ml Q30M PRN IV Hypoglycemia 06/17/19 08:00 07/17/19 07:59 Dextrose (Dextrose 50%) 50 ml Q30M PRN IV Hypoglycemia 06/17/19 08:00 07/17/19 07:59 Dextrose/Sodium Chloride 1,000 ml @ 150 mls/hr Q6H40M IV 06/16/19 20:15 07/16/19 20:14 06/18/19 06:19 Insulin Aspart (NovoLOG) BEFORE MEALS AND HS SUBQ 06/17/19 11:30 07/17/19 11:29 06/18/19 06:20 Lansoprazole (Prevacid) 30 mg DAILY GT 06/17/19 09:00 07/17/19 08:59 06/18/19 08:20 Levetiracetam (Keppra) 500 mg Q12HR GT 06/16/19 21:00 07/16/19 20:59 06/18/19 08:20 Norepinephrine Bitartrate 4 mg/ Dextrose 250 ml @ 0 mls/hr Q24H IV 06/17/19 20:30 07/17/19 20:29 06/18/19 08:20 Piperacillin Sod/ Tazobactam Sod 3.375 gm/Sodium Chloride 110 ml @ 27.5 mls/hr 0230,1030,1830 IVPB 06/17/19 02:30 06/24/19 02:29 06/18/19 02:00 Vancomycin HCl (Vanco rx to dose) 1 ea DAILY PRN MISC Per rx protocol 06/16/19 20:15 07/16/19 20:14 Vancomycin/Sodium Chloride 275 ml @ 137.5 mls/ hr Q24H IVPB 06/17/19 21:00 06/22/19 20:59 06/17/19 21:04 Rosalinda Guerrero MD Jun 18, 2019 10:41
[2019-06-18] MEDS ORDERED: D5NS 1000ml IV ONE (16:51)
[2019-06-18] MEDS ORDERED: NS 500ML ONE (16:51)
[2019-06-18] MEDS ORDERED: NS 275ml ONE (16:51)
[2019-06-18] MEDS ORDERED: Tubing IV Secondary IV ONE (16:51)
--- NOTE | 2019-06-18 17:35 | General Progress Note ---
Assessment/Plan Problem List: (1) GIB (gastrointestinal bleeding) ICD Codes: K92.2 - Gastrointestinal hemorrhage, unspecified SNOMED: 54255628 (2) Anemia ICD Codes: D64.9 - Anemia, unspecified SNOMED: 898463667 Qualifiers: Qualified Codes: D64.9 - Anemia, unspecified (3) Hyponatremia ICD Codes: E87.1 - Hypo-osmolality and hyponatremia SNOMED: 60532841 (4) Renal insufficiency ICD Codes: N28.9 - Disorder of kidney and ureter, unspecified; R65.20 - Severe sepsis without septic shock SNOMED: 943749325, 923555328 (5) Pneumonia ICD Codes: J18.9 - Pneumonia, unspecified organism SNOMED: 531133951, 861952364 Qualifiers: Qualified Codes: J18.9 - Pneumonia, unspecified organism (6) Severe sepsis ICD Codes: A41.9 - Sepsis, unspecified organism; R65.20 - Severe sepsis without septic shock SNOMED: 48746753 (7) Decubitus skin ulcer ICD Codes: L89.90 - Pressure ulcer of unspecified site, unspecified stage SNOMED: 938465645 (8) Leukocytosis ICD Codes: D72.829 - Elevated white blood cell count, unspecified SNOMED: 058486094, 772178962 (9) Hyperglycemia ICD Codes: R73.9 - Hyperglycemia, unspecified SNOMED: 67864123 (10) Hypothermia ICD Codes: T68.XXXA - Hypothermia, initial encounter SNOMED: 055612610 Qualifiers: Qualified Codes: T68.XXXA - Hypothermia, initial encounter Status: stable, unchanged Assessment/Plan: cont current rx wean pressors as bp tolerates decrease ivf albumin iv abx per id follow up cultures PPI rx GI eval vent support resp rx poor prognosis Subjective ROS Limited/Unobtainable: Yes Constitutional: Reports: malaise, weakness HEENT: Reports: no symptoms Cardiovascular: Reports: edema Respiratory: Reports: shortness of breath Gastrointestinal/Abdominal: Reports: difficulty swallowing Genitourinary: Reports: no symptoms Neurologic/Psychiatric: Reports: pre-existing deficit, seizure Endocrine: Reports: no symptoms Hematologic/Lymphatic: Reports: anemia Allergies: Coded Allergies: No Known Allergies (Unverified , 07/04/18) All Systems: reviewed and negative except above Subjective on low dose pressors. labs improving. Na still low. +edema. on iv abx. on the vent. hypothermia also better. tarry stools. Objective Last 24 Hour Vital Signs Date Time Temp Pulse Resp B/P (MAP) Pulse Ox O2 Delivery O2 Flow Rate FiO2 06/18/19 17:22 93 34 40 06/18/19 17:00 91 29 104/54 98 Mechanical Ventilator 60 06/18/19 16:30 92 29 103/55 97 Mechanical Ventilator 60 06/18/19 16:00 97.7 94 31 99/50 94 Mechanical Ventilator 60 06/18/19 16:00 94 06/18/19 15:30 93 30 104/58 98 Mechanical Ventilator 60 06/18/19 15:04 98 31 40 06/18/19 15:00 93 31 102/54 98 Mechanical Ventilator 60 06/18/19 14:30 93 30 100/56 97 Mechanical Ventilator 60 06/18/19 14:00 93 28 103/65 97 Mechanical Ventilator 60 06/18/19 13:30 91 29 98/57 98 Mechanical Ventilator 60 06/18/19 13:00 91 30 109/59 97 Mechanical Ventilator 60 06/18/19 12:53 95 32 40 06/18/19 12:30 91 35 103/55 97 Mechanical Ventilator 60 06/18/19 12:00 98.0 90 33 104/55 98 Mechanical Ventilator 60 06/18/19 12:00 93 06/18/19 11:30 95 34 99/54 96 Mechanical Ventilator 60 06/18/19 11:06 92 26 40 06/18/19 11:00 99 32 113/56 87 Mechanical Ventilator 60 06/18/19 10:30 91 32 106/55 99 Mechanical Ventilator 60 06/18/19 10:00 92 31 108/58 99 Mechanical Ventilator 60 06/18/19 09:30 92 31 109/54 97 Mechanical Ventilator 60 06/18/19 09:00 91 33 40 06/18/19 09:00 90 34 103/56 99 Mechanical Ventilator 60 06/18/19 08:30 92 36 108/51 97 Mechanical Ventilator 60 06/18/19 08:20 94/56 06/18/19 08:18 Mechanical Ventilator 06/18/19 08:00 97.0 91 32 94/56 95 Mechanical Ventilator 60 06/18/19 08:00 95 06/18/19 07:30 91 32 111/62 96 Mechanical Ventilator 60 06/18/19 07:00 92 32 110/64 96 Mechanical Ventilator 60 06/18/19 06:59 96 28 40 06/18/19 06:30 93 28 100/60 97 Mechanical Ventilator 60 06/18/19 06:00 94 28 110/59 97 Mechanical Ventilator 60 06/18/19 05:30 95 28 113/59 97 Mechanical Ventilator 60 06/18/19 05:10 97 30 40 06/18/19 05:00 94 28 102/52 97 Mechanical Ventilator 60 06/18/19 04:30 93 28 102/51 97 Mechanical Ventilator 60 06/18/19 04:00 96 06/18/19 04:00 97.8 92 28 98/47 97 Mechanical Ventilator 60 06/18/19 03:30 92 29 101/51 97 Mechanical Ventilator 60 06/18/19 03:13 94 31 40 06/18/19 03:00 92 29 103/49 98 Mechanical Ventilator 60 06/18/19 02:30 91 29 98/51 98 Mechanical Ventilator 60 06/18/19 02:00 92 29 100/51 98 Mechanical Ventilator 60 06/18/19 01:30 92 30 100/51 98 Mechanical Ventilator 60 06/18/19 01:00 91 31 103/49 98 Mechanical Ventilator 60 06/18/19 00:45 91 30 40 06/18/19 00:30 91 31 98/53 99 Mechanical Ventilator 60 06/18/19 00:00 99 06/18/19 00:00 98.0 92 31 94/60 100 Mechanical Ventilator 60 06/17/19 22:40 104 38 40 06/17/19 22:30 93 31 97/51 100 Mechanical Ventilator 60 06/17/19 22:00 94 30 97/51 100 Mechanical Ventilator 60 06/17/19 21:30 94 30 103/47 100 Mechanical Ventilator 60 06/17/19 21:18 88/42 06/17/19 21:00 95 30 88/42 100 Mechanical Ventilator 60 06/17/19 20:30 100 31 80/42 100 Mechanical Ventilator 60 06/17/19 20:30 106 41 40 06/17/19 20:00 97.6 100 28 72/42 100 Mechanical Ventilator 60 06/17/19 19:30 100 28 70/42 100 Mechanical Ventilator 60 06/17/19 19:10 107 37 40 06/17/19 18:00 106 28 96/56 100 Mechanical Ventilator 60 06/17/19 18:00 Mechanical Ventilator Intake and Output 06/17/19 06/18/19 18:59 06:59 Intake Total 1602.628 ml 1628.75 ml Output Total 1060 ml 1220 ml Balance 542.628 ml 408.75 ml Intake Oral 0 ml 0 ml IV Total 1602.628 ml 1628.75 ml Output Urine Total 1060 ml 1220 ml # Bowel Movements 4 Laboratory Tests 06/17/19 17:45: Sodium Level 123L, Potassium Level 5.7H, Chloride Level 96L, Carbon Dioxide Level 22, Anion Gap 6, Blood Urea Nitrogen 41H, Creatinine 1.0, Estimat Glomerular Filtration Rate , Glucose Level 173H, Calcium Level 8.0L, Total Bilirubin 0.4, Aspartate Amino Transf (AST/SGOT) 32, Alanine Aminotransferase ( ALT/SGPT) 27, Alkaline Phosphatase 129H, Total Protein 6.8, Albumin 1.4L, Globulin 5.4, Albumin/Globulin Ratio 0.3L 06/18/19 05:24: Sodium Level 128L, Potassium Level 5.0, Chloride Level 102, Carbon Dioxide Level 19L, Anion Gap 7, Blood Urea Nitrogen 27H, Creatinine 0.9, Estimat Glomerular Filtration Rate , Glucose Level 200H, Calcium Level 8.0L, Total Bilirubin 0.4, Aspartate Amino Transf (AST/SGOT) 39H, Alanine Aminotransferase ( ALT/SGPT) 27, Alkaline Phosphatase 120H, Total Protein 6.5, Albumin 1.3L, Globulin 5.2, Albumin/Globulin Ratio 0.2L, White Blood Count 11.3H, Red Blood Count 2.67L, Hemoglobin 7.9L, Hematocrit 23.6L, Mean Corpuscular Volume 89, Mean Corpuscular Hemoglobin 29.5, Mean Corpuscular Hemoglobin Concent 33.3, Red Cell Distribution Width 15.5H, Platelet Count 61L, Mean Platelet Volume 9.1, Neutrophils (%) (Auto) , Lymphocytes (%) (Auto) , Monocytes (%) (Auto) , Eosinophils (%) (Auto) , Basophils (%) (Auto) , Differential Total Cells Counted 100, Neutrophils % (Manual) 73, Lymphocytes % (Manual) 17L, Monocytes % (Manual) 10, Eosinophils % (Manual) 0, Basophils % (Manual) 0, Band Neutrophils 0, Nucleated Red Blood Cells 2, Platelet Estimate DecreasedL, Platelet Morphology Normal, Hypochromasia , Anisocytosis 1+ 06/18/19 10:00: Stool Occult Blood [Pending] Height (Feet): 5 Height (Inches): 8.00 Weight (Pounds): 220 General Appearance: lethargic, confused Neck: supple Cardiovascular: normal rate, regular rhythm Respiratory/Chest: chest wall non-tender, lungs clear, normal breath sounds, no respiratory distress, no accessory muscle use Abdomen: normal bowel sounds, non tender, soft, no organomegaly Edema: moderate edema Neurologic: disoriented, unresponsive, aphasia Chano Galeana MD Jun 18, 2019 17:35
[2019-06-18] MEDS: Pantoprazole Inj IVP SCH (17:50)
--- NOTE | 2019-06-18 19:04 | Pulmonolgy Critical Care Note ---
Critical Care - Asmt/Plan Assessment/Plan: Pulmonary CCM Progress Note Assessment/Plan chronic respiratory failure multifocal penumonia hypoxemia sepsis leukocytosis hyponatremia ARF trach GT severe PCM chronic encephalopathy PLAN renal and ID evaluation vent support monitor acid base iv antibiotics ICU care critical hydration with caution monitor imaging monitor cultures all care reviewed in detail close follow up of all parameters medications/laboratory data/nursing notes/ICU care reviewed in detail note reviewed and edited care discussed with RN and RT ICU time spent 55 minutes Critical Care - Subjective Interval Events: all care reviewed transferred by 911 hyponatremia sepsis respiratory failure well known to me SNf and ER care reviewed ROS Limited/Unobtainable: Yes Condition: critical EKG Rhythm: Sinus Rhythm Residuals: minimal Tube Feeding Tolerated: yes Critical Care - Objective CXR: multifocal pneumonia Objective: Vital signs noted WDWN trach and vent reduced breath sounds bilaterally with scattered rhonchi [id number] without MRG NABS nontender no HSM; GT; no distention no CCE nonfocal poor LOC skin exam reviewed Critical Care - Objective Last 24 Hour Vital Signs Date Time Temp Pulse Resp B/P (MAP) Pulse Ox O2 Delivery O2 Flow Rate FiO2 06/18/19 18:40 93 29 60 06/18/19 18:00 91 32 101/51 97 Mechanical Ventilator 60 06/18/19 17:30 90 33 102/57 98 Mechanical Ventilator 60 06/18/19 17:22 93 34 40 06/18/19 17:00 91 29 104/54 98 Mechanical Ventilator 60 06/18/19 16:30 92 29 103/55 97 Mechanical Ventilator 60 06/18/19 16:00 40 06/18/19 16:00 97.7 94 31 99/50 94 Mechanical Ventilator 60 06/18/19 16:00 94 06/18/19 15:30 93 30 104/58 98 Mechanical Ventilator 60 06/18/19 15:04 98 31 40 06/18/19 15:00 93 31 102/54 98 Mechanical Ventilator 60 06/18/19 14:30 93 30 100/56 97 Mechanical Ventilator 60 06/18/19 14:00 93 28 103/65 97 Mechanical Ventilator 60 06/18/19 13:30 91 29 98/57 98 Mechanical Ventilator 60 06/18/19 13:00 91 30 109/59 97 Mechanical Ventilator 60 06/18/19 12:53 95 32 40 06/18/19 12:30 91 35 103/55 97 Mechanical Ventilator 60 06/18/19 12:00 40 06/18/19 12:00 98.0 90 33 104/55 98 Mechanical Ventilator 60 06/18/19 12:00 93 06/18/19 11:30 95 34 99/54 96 Mechanical Ventilator 60 06/18/19 11:06 92 26 40 06/18/19 11:00 99 32 113/56 87 Mechanical Ventilator 60 06/18/19 10:30 91 32 106/55 99 Mechanical Ventilator 60 06/18/19 10:00 92 31 108/58 99 Mechanical Ventilator 60 06/18/19 09:30 92 31 109/54 97 Mechanical Ventilator 60 06/18/19 09:00 91 33 40 06/18/19 09:00 90 34 103/56 99 Mechanical Ventilator 60 06/18/19 08:30 92 36 108/51 97 Mechanical Ventilator 60 06/18/19 08:20 94/56 06/18/19 08:18 Mechanical Ventilator 06/18/19 08:00 97.0 91 32 94/56 95 Mechanical Ventilator 60 06/18/19 08:00 95 06/18/19 08:00 40 06/18/19 07:30 91 32 111/62 96 Mechanical Ventilator 60 06/18/19 07:00 92 32 110/64 96 Mechanical Ventilator 60 06/18/19 06:59 96 28 40 06/18/19 06:30 93 28 100/60 97 Mechanical Ventilator 60 06/18/19 06:00 94 28 110/59 97 Mechanical Ventilator 60 06/18/19 05:30 95 28 113/59 97 Mechanical Ventilator 60 06/18/19 05:10 97 30 40 06/18/19 05:00 94 28 102/52 97 Mechanical Ventilator 60 06/18/19 04:30 93 28 102/51 97 Mechanical Ventilator 60 06/18/19 04:00 96 06/18/19 04:00 97.8 92 28 98/47 97 Mechanical Ventilator 60 06/18/19 03:30 92 29 101/51 97 Mechanical Ventilator 60 06/18/19 03:13 94 31 40 06/18/19 03:00 92 29 103/49 98 Mechanical Ventilator 60 06/18/19 02:30 91 29 98/51 98 Mechanical Ventilator 60 06/18/19 02:00 92 29 100/51 98 Mechanical Ventilator 60 06/18/19 01:30 92 30 100/51 98 Mechanical Ventilator 60 06/18/19 01:00 91 31 103/49 98 Mechanical Ventilator 60 06/18/19 00:45 91 30 40 06/18/19 00:30 91 31 98/53 99 Mechanical Ventilator 60 06/18/19 00:00 99 06/18/19 00:00 98.0 92 31 94/60 100 Mechanical Ventilator 60 06/17/19 22:40 104 38 40 06/17/19 22:30 93 31 97/51 100 Mechanical Ventilator 60 06/17/19 22:00 94 30 97/51 100 Mechanical Ventilator 60 06/17/19 21:30 94 30 103/47 100 Mechanical Ventilator 60 06/17/19 21:18 88/42 06/17/19 21:00 95 30 88/42 100 Mechanical Ventilator 60 06/17/19 20:30 100 31 80/42 100 Mechanical Ventilator 60 06/17/19 20:30 106 41 40 06/17/19 20:00 97.6 100 28 72/42 100 Mechanical Ventilator 60 06/17/19 19:30 100 28 70/42 100 Mechanical Ventilator 60 06/17/19 19:10 107 37 40 Micro: Microbiology Date/Time Source Procedure Growth Status 06/16/19 17:15 Blood Blood Culture - Preliminary NO GROWTH AFTER 24 HOURS Resulted 06/16/19 17:00 Blood Blood Culture - Preliminary NO GROWTH AFTER 24 HOURS Resulted 06/16/19 18:42 Nasal Nares Left MRSA Culture - Final NO METHICILLIN RESISTANT STAPH AUREUS... Complete 06/16/19 16:50 Sputum Gram Stain - Final Resulted 06/16/19 16:50 Sputum Culture - Preliminary Gram Negative Bacillus 1 Resulted 06/16/19 18:50 Rectum VRE Culture - Final Enterococcus Faecalis - Vre Complete Accucheck: 200 Critical Care - Subjective ROS Limited/Unobtainable: No FI02: 60 Vent Support Breath Rate: 16 Vent Support Mode: AC Vent Tidal Volume: 500 Sputum Amount: Small PEEP: 5.0 PIP: 29 I&O: Intake and Output 06/17/19 06/18/19 19:00 07:00 Intake Total 1433.878 ml 1797.50 ml Output Total 990 ml 1270 ml Balance 443.878 ml 527.50 ml Intake Oral 0 ml 0 ml IV Total 1433.878 ml 1797.50 ml Output Urine Total 990 ml 1270 ml # Bowel Movements 4 Sea Nieto MD Jun 18, 2019 19:04
[2019-06-18] MEDS: Dyna-Hex 2% Top Sol 2oz TOPIC SCH (20:58)
[2019-06-18] MEDS: Vancomycin 1.5gm/NS Premix IVPB SCH (21:00)
--- NOTE | 2019-06-18 21:08 | Surgery Progress Note ---
Surgery Progress Note Subjective Symptoms: other Additional Comments labs noted exam stable imaging noted Objective Last 24 Hour Vital Signs Date Time Temp Pulse Resp B/P (MAP) Pulse Ox O2 Delivery O2 Flow Rate FiO2 06/18/19 21:00 93/46 06/18/19 20:09 83/43 06/18/19 20:00 80/39 06/18/19 19:30 105/52 06/18/19 19:00 90 31 83/44 96 Mechanical Ventilator 60 06/18/19 19:00 104/54 06/18/19 18:40 93 29 60 06/18/19 18:00 91 32 101/51 97 Mechanical Ventilator 60 06/18/19 17:30 90 33 102/57 98 Mechanical Ventilator 60 06/18/19 17:22 93 34 40 06/18/19 17:00 91 29 104/54 98 Mechanical Ventilator 60 06/18/19 16:30 92 29 103/55 97 Mechanical Ventilator 60 06/18/19 16:00 40 06/18/19 16:00 97.7 94 31 99/50 94 Mechanical Ventilator 60 06/18/19 16:00 94 06/18/19 15:30 93 30 104/58 98 Mechanical Ventilator 60 06/18/19 15:04 98 31 40 06/18/19 15:00 93 31 102/54 98 Mechanical Ventilator 60 06/18/19 14:30 93 30 100/56 97 Mechanical Ventilator 60 06/18/19 14:00 93 28 103/65 97 Mechanical Ventilator 60 06/18/19 13:30 91 29 98/57 98 Mechanical Ventilator 60 06/18/19 13:00 91 30 109/59 97 Mechanical Ventilator 60 06/18/19 12:53 95 32 40 06/18/19 12:30 91 35 103/55 97 Mechanical Ventilator 60 06/18/19 12:00 40 06/18/19 12:00 98.0 90 33 104/55 98 Mechanical Ventilator 60 06/18/19 12:00 93 06/18/19 11:30 95 34 99/54 96 Mechanical Ventilator 60 06/18/19 11:06 92 26 40 06/18/19 11:00 99 32 113/56 87 Mechanical Ventilator 60 06/18/19 10:30 91 32 106/55 99 Mechanical Ventilator 60 06/18/19 10:00 92 31 108/58 99 Mechanical Ventilator 60 06/18/19 09:30 92 31 109/54 97 Mechanical Ventilator 60 06/18/19 09:00 91 33 40 06/18/19 09:00 90 34 103/56 99 Mechanical Ventilator 60 06/18/19 08:30 92 36 108/51 97 Mechanical Ventilator 60 06/18/19 08:20 94/56 06/18/19 08:18 Mechanical Ventilator 06/18/19 08:00 97.0 91 32 94/56 95 Mechanical Ventilator 60 06/18/19 08:00 95 06/18/19 08:00 40 06/18/19 07:30 91 32 111/62 96 Mechanical Ventilator 60 06/18/19 07:00 92 32 110/64 96 Mechanical Ventilator 60 06/18/19 06:59 96 28 40 06/18/19 06:30 93 28 100/60 97 Mechanical Ventilator 60 06/18/19 06:00 94 28 110/59 97 Mechanical Ventilator 60 06/18/19 05:30 95 28 113/59 97 Mechanical Ventilator 60 06/18/19 05:10 97 30 40 06/18/19 05:00 94 28 102/52 97 Mechanical Ventilator 60 06/18/19 04:30 93 28 102/51 97 Mechanical Ventilator 60 06/18/19 04:00 96 06/18/19 04:00 97.8 92 28 98/47 97 Mechanical Ventilator 60 06/18/19 03:30 92 29 101/51 97 Mechanical Ventilator 60 06/18/19 03:13 94 31 40 06/18/19 03:00 92 29 103/49 98 Mechanical Ventilator 60 06/18/19 02:30 91 29 98/51 98 Mechanical Ventilator 60 06/18/19 02:00 92 29 100/51 98 Mechanical Ventilator 60 06/18/19 01:30 92 30 100/51 98 Mechanical Ventilator 60 06/18/19 01:00 91 31 103/49 98 Mechanical Ventilator 60 06/18/19 00:45 91 30 40 06/18/19 00:30 91 31 98/53 99 Mechanical Ventilator 60 06/18/19 00:00 99 06/18/19 00:00 98.0 92 31 94/60 100 Mechanical Ventilator 60 06/17/19 22:40 104 38 40 06/17/19 22:30 93 31 97/51 100 Mechanical Ventilator 60 06/17/19 22:00 94 30 97/51 100 Mechanical Ventilator 60 06/17/19 21:30 94 30 103/47 100 Mechanical Ventilator 60 06/17/19 21:18 88/42 I&O Intake and Output 06/17/19 06/18/19 19:00 07:00 Intake Total 1433.878 ml 1797.50 ml Output Total 990 ml 1270 ml Balance 443.878 ml 527.50 ml Intake Oral 0 ml 0 ml IV Total 1433.878 ml 1797.50 ml Output Urine Total 990 ml 1270 ml # Bowel Movements 4 Dressing: saturated Wound: other Drains: other Cardiovascular: RSR Respiratory: decreased breath sounds Abdomen: soft, present bowel sounds Extremities: no cyanosis Laboratory Tests Test 06/18/19 05:24 06/18/19 10:00 White Blood Count 11.3 K/UL (4.8-10.8) H Red Blood Count 2.67 M/UL (4.70-6.10) L Hemoglobin 7.9 G/DL (14.2-18.0) L Hematocrit 23.6 % (42.0-52.0) L Mean Corpuscular Volume 89 FL (80-99) Mean Corpuscular Hemoglobin 29.5 PG (27.0-31.0) Mean Corpuscular Hemoglobin Concent 33.3 G/DL (32.0-36.0) Red Cell Distribution Width 15.5 % (11.6-14.8) H Platelet Count 61 K/UL (150-450) L Mean Platelet Volume 9.1 FL (6.5-10.1) Neutrophils (%) (Auto) % (45.0-75.0) Lymphocytes (%) (Auto) % (20.0-45.0) Monocytes (%) (Auto) % (1.0-10.0) Eosinophils (%) (Auto) % (0.0-3.0) Basophils (%) (Auto) % (0.0-2.0) Differential Total Cells Counted 100 Neutrophils % (Manual) 73 % (45-75) Lymphocytes % (Manual) 17 % (20-45) L Monocytes % (Manual) 10 % (1-10) Eosinophils % (Manual) 0 % (0-3) Basophils % (Manual) 0 % (0-2) Band Neutrophils 0 % (0-8) Nucleated Red Blood Cells 2 /100 WBC Platelet Estimate Decreased L Platelet Morphology Normal Hypochromasia Anisocytosis 1+ Sodium Level 128 MMOL/L (136-145) L Potassium Level 5.0 MMOL/L (3.5-5.1) Chloride Level 102 MMOL/L (98-107) Carbon Dioxide Level 19 MMOL/L (21-32) L Anion Gap 7 mmol/L (5-15) Blood Urea Nitrogen 27 mg/dL (7-18) H Creatinine 0.9 MG/DL (0.55-1.30) Estimat Glomerular Filtration Rate mL/min (>60) Glucose Level 200 MG/DL (74-106) H Calcium Level 8.0 MG/DL (8.5-10.1) L Total Bilirubin 0.4 MG/DL (0.2-1.0) Aspartate Amino Transf (AST/SGOT) 39 U/L (15-37) H Alanine Aminotransferase (ALT/SGPT) 27 U/L (12-78) Alkaline Phosphatase 120 U/L (46-116) H Total Protein 6.5 G/DL (6.4-8.2) Albumin 1.3 G/DL (3.4-5.0) L Globulin 5.2 g/dL Albumin/Globulin Ratio 0.2 (1.0-2.7) L Stool Occult Blood Pending Plan Problems: (1) Leukocytosis (2) Decubitus skin ulcer Assessment & Plan: Pt presented on admission with multiple pressure injuries. Resolving pressure injury posterior neck under collar of trach. Base of wound has mostly pink epithelial with scattered small partial thickness wounds (L)2cm x (W)1.6cm. Tracheal stoma noted to have denuded area R side of stoma.. Resolving full thickness sacral pressure injury L sacrum (L)2.5cm x (W)1cm x (D) 0.2cm.[place] granulation at base of wound . Inferior but in close proximity to L sacral wound ,pt noted to have darker skin tone with scattered areas that are fluctuant and partially opened with small amt of sanguineous exudate noted (L) 9cm x (W)11.5cm. Resolving pressure injury noted to base of scrotum . Base of wound pink and dry (L)1cm x (W)0.8cm. Unstageable pressure injury noted to R heel extending into plantar aspect of R heel.At plantar aspect of heel soft necrosis noted that is oozing small amt brown purulent exudate(L)3cm x (W)3.5cm. Surrounding the area of necrosis, wound is black with fluctuance and marginal erythema along edges. Wound is malodorous.(L)8cm x (W)9.5cm. L heel is boggy with non-blanching erythema. Tx.Plan: Apply Cavilon Skin Barrier to posterior neck. Cover with Optifoam drsg. Change every 3 days and prn. Apply Moisture Barrier Paste to sacrum. Cover with Optifoam drsg. Change every 3days and prn. Apply Moisture Barrier Paste to Scrotum with each incontinence care. Apply Betadine to R heel . Cover with ABD pad and wrap with kerlix Daily and prn. Apply Cavilon Skin Barrier to R heel. Cover with Optifoam drsg. Change every 7 days and prn. APM/LARISSA Mattress overlay. Reposition at least every 2hours or as tolerated. Off-load heels with pillow. (3) Severe sepsis Assessment & Plan: Leukocytosis, lactic acidosis, hyperkalemia, hyponatremia. Severe sepsis Fluid resuscitation IV antibiotics as per infectious disease Trend labs Wound care as above We will follow with recommendations Thank you for this consultation Abdoul Lucas Jun 18, 2019 21:08
[2019-06-19] VITALS (44 sets, daily range): BP systolic 76–152; BP diastolic 28–135
--- NOTE | 2019-06-19 00:45 | Progress Note ---
DATE: 06/18/2019 CARDIOLOGY PROGRESS NOTE SUBJECTIVE: The patient remains in the intensive care unit. Condition remains critical with guarded prognosis. He remains on pressors. He remains on ventilator support. He remains with hypothermia. Monitored rhythm sinus with atrial and ventricular ectopics. OBJECTIVE: VITAL SIGNS: Blood pressure 93/46, heart rate 92, respiratory rate 31, and afebrile. Temperature 95.9 rectally. LUNGS: Bilateral breath sounds. Few rhonchi. HEART: Regular rhythm and rate. Normal S1, S2 with a fourth heart sound. ABDOMEN: Soft. EXTREMITIES: No edema. LABORATORY DATA: Sodium 128, potassium 5, bicarb 19, BUN 27, creatinine 0.9, and glucose 200. Albumin 1.3. White count 11 and hemoglobin 7.9. IMPRESSION: 1. Sepsis shock. 2. Respiratory failure. 3. Hypothermia. 4. Anemia. 5. Thrombocytopenia. 6. Seizure disorder. 7. Acute myocardial ischemia. 8. Severe protein-calorie malnutrition. PLAN: 1. Continue ventilator support. 2. Continue volume support. 3. Wean off pressors. 4. Warming measures. 5. Broad-spectrum antimicrobials. 6. DVT and stress ulcer prophylaxis. 7. Antiseizure therapy. 8. Remains critical and guarded. Sea [place] M.D. DR: Abigail JOB#: [id number] CC:
[2019-06-19] MEDS: Piperacillin/Tazobactam 3.375 GM in NS 110 ML IVPB SCH ×3 (02:30→18:15)
[2019-06-19] MEDS: NovoLOG Insulin Flexpen SUBQ SCH ×4 (05:30→20:33)
[2019-06-19 05:42] LABS: HEMATOCRIT 23.4 % (42.0-52.0); HEMOGLOBIN 7.7 G/DL (14.2-18.0); MEAN CORPUSCULAR VOLUME 90 FL (80-99); PLATELET COUNT 58 K/UL (150-450); RED BLOOD COUNT 2.62 M/UL (4.70-6.10); WHITE BLOOD COUNT 11.2 K/UL (4.8-10.8)
[2019-06-19 06:04] LABS: ALANINE AMINOTRANSFERASE 26 U/L (12-78); ALBUMIN 1.9 G/DL (3.4-5.0); ALBUMIN/GLOBULIN RATIO 0.3 (1.0-2.7); ALKALINE PHOSPHATASE 139 U/L (46-116); ANION GAP 6 mmol/L (5-15); ASPARTATE AMINO TRANSFERASE 28 U/L (15-37); BILIRUBIN,TOTAL 0.5 MG/DL (0.2-1.0); BLOOD UREA NITROGEN 12 mg/dL (7-18); CALCIUM 8.7 MG/DL (8.5-10.1); CARBON DIOXIDE 22 MMOL/L (21-32); CHLORIDE 105 MMOL/L (98-107); CREATININE 0.9 MG/DL (0.55-1.30); POTASSIUM 4.9 MMOL/L (3.5-5.1); SODIUM 133 MMOL/L (136-145)
--- NOTE | 2019-06-19 07:46 | General Progress Note ---
Assessment/Plan Problem List: (1) GIB (gastrointestinal bleeding) ICD Codes: K92.2 - Gastrointestinal hemorrhage, unspecified SNOMED: 13506534 (2) Anemia ICD Codes: D64.9 - Anemia, unspecified SNOMED: 239630837 Qualifiers: Qualified Codes: D64.9 - Anemia, unspecified (3) Hyponatremia ICD Codes: E87.1 - Hypo-osmolality and hyponatremia SNOMED: 06773800 (4) Renal insufficiency ICD Codes: N28.9 - Disorder of kidney and ureter, unspecified; R65.20 - Severe sepsis without septic shock SNOMED: 779517253, 565031762 (5) Pneumonia ICD Codes: J18.9 - Pneumonia, unspecified organism SNOMED: 993515168, 053805345 Qualifiers: Qualified Codes: J18.9 - Pneumonia, unspecified organism (6) Severe sepsis ICD Codes: A41.9 - Sepsis, unspecified organism; R65.20 - Severe sepsis without septic shock SNOMED: 80394206 (7) Decubitus skin ulcer ICD Codes: L89.90 - Pressure ulcer of unspecified site, unspecified stage SNOMED: 845243434 (8) Leukocytosis ICD Codes: D72.829 - Elevated white blood cell count, unspecified SNOMED: 389511272, 325615814 (9) Hyperglycemia ICD Codes: R73.9 - Hyperglycemia, unspecified SNOMED: 27748898 (10) Hypothermia ICD Codes: T68.XXXA - Hypothermia, initial encounter SNOMED: 339807604 Qualifiers: Qualified Codes: T68.XXXA - Hypothermia, initial encounter Status: stable, unchanged Assessment/Plan: cont current rx wean pressors as bp tolerates decrease ivf albumin iv abx per id follow up cultures PPI rx GI eval vent support resp rx poor prognosis Subjective ROS Limited/Unobtainable: Yes Constitutional: Reports: malaise, weakness HEENT: Reports: no symptoms Cardiovascular: Reports: no symptoms Respiratory: Reports: shortness of breath Gastrointestinal/Abdominal: Reports: difficulty swallowing Genitourinary: Reports: no symptoms Neurologic/Psychiatric: Reports: pre-existing deficit, seizure Endocrine: Reports: no symptoms Hematologic/Lymphatic: Reports: anemia Allergies: Coded Allergies: No Known Allergies (Unverified , 07/04/18) All Systems: reviewed and negative except above Subjective off pressors. labs improving. on the vent. +facial twitching. on abx. Objective Last 24 Hour Vital Signs Date Time Temp Pulse Resp B/P (MAP) Pulse Ox O2 Delivery O2 Flow Rate FiO2 06/19/19 06:15 101 33 112/64 98 Mechanical Ventilator 60 06/19/19 06:00 101 34 119/59 98 Mechanical Ventilator 60 06/19/19 05:45 103 34 106/57 100 Mechanical Ventilator 60 06/19/19 05:30 103 35 114/58 100 Mechanical Ventilator 60 06/19/19 05:03 106 33 60 06/19/19 05:00 104 32 113/53 97 Mechanical Ventilator 60 06/19/19 04:30 104 31 114/62 91 Mechanical Ventilator 60 06/19/19 04:15 106 31 117/62 94 Mechanical Ventilator 60 06/19/19 04:00 60 06/19/19 04:00 Mechanical Ventilator 06/19/19 04:00 106 06/19/19 04:00 97.5 107 34 152/135 98 Mechanical Ventilator 60 06/19/19 03:53 119/75 06/19/19 03:45 109 35 136/117 97 Mechanical Ventilator 60 06/19/19 03:30 109 32 121/79 97 Mechanical Ventilator 60 06/19/19 03:25 109 28 60 06/19/19 03:15 109 36 96/69 95 Mechanical Ventilator 60 06/19/19 03:00 109 29 121/69 100 Mechanical Ventilator 60 06/19/19 02:30 109 34 115/56 100 Mechanical Ventilator 60 06/19/19 02:23 109/56 06/19/19 02:15 107 32 109/56 100 Mechanical Ventilator 60 06/19/19 02:00 109 35 108/61 95 Mechanical Ventilator 60 06/19/19 02:00 109/56 06/19/19 01:45 104 34 120/72 100 Mechanical Ventilator 60 06/19/19 01:30 104 35 113/62 99 Mechanical Ventilator 60 06/19/19 01:15 103 33 112/61 100 Mechanical Ventilator 60 06/19/19 01:00 101 32 109/63 100 Mechanical Ventilator 60 06/19/19 01:00 113/62 06/19/19 00:59 101 33 60 06/19/19 00:30 98 31 103/67 98 Mechanical Ventilator 60 06/19/19 00:00 103/65 10/10/19 00:00 97.4 96 32 107/62 98 Mechanical Ventilator 60 06/19/19 00:00 Mechanical Ventilator 06/19/19 00:00 60 06/19/19 00:00 102 06/18/19 23:39 108/66 06/18/19 23:30 94 33 108/66 99 Mechanical Ventilator 60 06/18/19 23:00 93 33 114/61 100 Mechanical Ventilator 60 06/18/19 23:00 108/66 06/18/19 22:57 95 36 60 06/18/19 22:30 93 29 109/54 95 Mechanical Ventilator 60 06/18/19 22:00 102/52 06/18/19 22:00 95.9 92 31 102/54 94 Mechanical Ventilator 60 06/18/19 21:30 93 31 103/49 94 Mechanical Ventilator 60 06/18/19 21:12 94 32 60 06/18/19 21:00 92 31 93/46 93 Mechanical Ventilator 60 06/18/19 21:00 93/46 06/18/19 20:30 91 31 96/48 94 Mechanical Ventilator 60 06/18/19 20:09 83/43 06/18/19 20:08 89 30 83/43 93 Mechanical Ventilator 60 06/18/19 20:07 89 29 82/40 94 Mechanical Ventilator 60 06/18/19 20:00 92 06/18/19 20:00 80/39 06/18/19 20:00 95.4 90 30 81/40 94 Mechanical Ventilator 60 06/18/19 20:00 Mechanical Ventilator 06/18/19 20:00 60.0 40 06/18/19 19:30 105/52 06/18/19 19:30 93 33 105/52 96 Mechanical Ventilator 60 06/18/19 19:00 90 31 83/44 96 Mechanical Ventilator 60 06/18/19 19:00 104/54 06/18/19 18:40 93 29 60 06/18/19 18:00 91 32 101/51 97 Mechanical Ventilator 60 06/18/19 17:30 90 33 102/57 98 Mechanical Ventilator 60 06/18/19 17:22 93 34 40 06/18/19 17:00 91 29 104/54 98 Mechanical Ventilator 60 06/18/19 16:30 92 29 103/55 97 Mechanical Ventilator 60 06/18/19 16:00 40 06/18/19 16:00 97.7 94 31 99/50 94 Mechanical Ventilator 60 06/18/19 16:00 94 06/18/19 15:30 93 30 104/58 98 Mechanical Ventilator 60 06/18/19 15:04 98 31 40 06/18/19 15:00 93 31 102/54 98 Mechanical Ventilator 60 06/18/19 14:30 93 30 100/56 97 Mechanical Ventilator 60 06/18/19 14:00 93 28 103/65 97 Mechanical Ventilator 60 06/18/19 13:30 91 29 98/57 98 Mechanical Ventilator 60 06/18/19 13:00 91 30 109/59 97 Mechanical Ventilator 60 06/18/19 12:53 95 32 40 06/18/19 12:30 91 35 103/55 97 Mechanical Ventilator 60 06/18/19 12:00 40 06/18/19 12:00 98.0 90 33 104/55 98 Mechanical Ventilator 60 06/18/19 12:00 93 06/18/19 11:30 95 34 99/54 96 Mechanical Ventilator 60 06/18/19 11:06 92 26 40 06/18/19 11:00 99 32 113/56 87 Mechanical Ventilator 60 06/18/19 10:30 91 32 106/55 99 Mechanical Ventilator 60 06/18/19 10:00 92 31 108/58 99 Mechanical Ventilator 60 06/18/19 09:30 92 31 109/54 97 Mechanical Ventilator 60 06/18/19 09:00 91 33 40 06/18/19 09:00 90 34 103/56 99 Mechanical Ventilator 60 06/18/19 08:30 92 36 108/51 97 Mechanical Ventilator 60 06/18/19 08:20 94/56 06/18/19 08:18 Mechanical Ventilator 06/18/19 08:00 97.0 91 32 94/56 95 Mechanical Ventilator 60 06/18/19 08:00 95 06/18/19 08:00 40 Intake and Output 06/18/19 06/19/19 18:59 06:59 Intake Total 1868.75 ml 1726.25 ml Output Total 1110 ml 1230 ml Balance 758.75 ml 496.25 ml Intake Oral 0 ml 0 ml Free Water 160 ml IV Total 1868.75 ml 1566.25 ml Output Urine Total 1110 ml 1230 ml Laboratory Tests 06/18/19 10:00: Stool Occult Blood [Pending] 06/19/19 04:30: White Blood Count 11.2H, Red Blood Count 2.62L, Hemoglobin 7.7L, Hematocrit 23.4L, Mean Corpuscular Volume 90, Mean Corpuscular Hemoglobin 29.4, Mean Corpuscular Hemoglobin Concent 32.9, Red Cell Distribution Width 16.0H, Platelet Count 58L, Mean Platelet Volume 7.9, Neutrophils (%) (Auto) , Lymphocytes (%) (Auto) , Monocytes (%) (Auto) , Eosinophils (%) (Auto) , Basophils (%) (Auto) , Neutrophils % (Manual) [Pending], Lymphocytes % (Manual) [Pending], Platelet Estimate [Pending], Platelet Morphology [Pending], Sodium Level 133L, Potassium Level 4.9, Chloride Level 105, Carbon Dioxide Level 22, Anion Gap 6, Blood Urea Nitrogen 12, Creatinine 0.9, Estimat Glomerular Filtration Rate , Glucose Level 129H, Calcium Level 8.7, Total Bilirubin 0.5, Aspartate Amino Transf (AST/SGOT) 28, Alanine Aminotransferase (ALT/SGPT) 26, Alkaline Phosphatase 139H, Total Protein 7.4, Albumin 1.9L, Globulin 5.5, Albumin/Globulin Ratio 0.3L Height (Feet): 5 Height (Inches): 8.00 Weight (Pounds): 216 Objective cont current rx pressors as needed albumin and ivf as needed iv abx per id follow up cultures PPI rx GI eval vent support resp rx poor prognosis Chano Galeana MD Jun 19, 2019 07:46
--- NOTE | 2019-06-19 08:19 | Critical Care Progress Note ---
Assessment/Plan Assessment/Plan chronic respiratory failure multifocal pneumonia hypoxemia sepsis leukocytosis hyponatremia ARF trach GT severe PCM chronic encephalopathy possible colitis PLAN renal and ID evaluation noted vent support reviewed monitor acid base iv antibiotics and cultures noted ICU care critical hydration with caution monitor imaging monitor cultures off load all care reviewed in detail close follow up of all parameters medications/laboratory data/nursing notes/ICU care reviewed in detail note reviewed and edited care discussed with RN and RT ICU time spent 40 minutes Critical Care - Subjective Interval Events: care noted and reviewed ICU care noted still ill ROS Limited/Unobtainable: Yes Condition: critical EKG Rhythm: Sinus Rhythm Residuals: minimal Tube Feeding Tolerated: yes I&O: Intake and Output 06/18/19 06/19/19 18:59 06:59 Intake Total 1868.75 ml 1726.25 ml Output Total 1110 ml 1230 ml Balance 758.75 ml 496.25 ml Intake Oral 0 ml 0 ml Free Water 160 ml IV Total 1868.75 ml 1566.25 ml Output Urine Total 1110 ml 1230 ml Critical Care - Objective CXR: + infiltrates Last 24 Hour Vital Signs Date Time Temp Pulse Resp B/P (MAP) Pulse Ox O2 Delivery O2 Flow Rate FiO2 06/19/19 08:00 60 06/19/19 08:00 101 33 108/55 98 Mechanical Ventilator 60 06/19/19 07:15 103 31 60 06/19/19 07:00 96.5 104 33 103/58 100 Mechanical Ventilator 60 06/19/19 06:15 101 33 112/64 98 Mechanical Ventilator 60 06/19/19 06:00 101 34 119/59 98 Mechanical Ventilator 60 06/19/19 05:45 103 34 106/57 100 Mechanical Ventilator 60 06/19/19 05:30 103 35 114/58 100 Mechanical Ventilator 60 06/19/19 05:03 106 33 60 06/19/19 05:00 104 32 113/53 97 Mechanical Ventilator 60 06/19/19 04:30 104 31 114/62 91 Mechanical Ventilator 60 06/19/19 04:15 106 31 117/62 94 Mechanical Ventilator 60 06/19/19 04:00 60 06/19/19 04:00 Mechanical Ventilator 06/19/19 04:00 106 06/19/19 04:00 97.5 107 34 152/135 98 Mechanical Ventilator 60 06/19/19 03:53 119/75 06/19/19 03:45 109 35 136/117 97 Mechanical Ventilator 60 06/19/19 03:30 109 32 121/79 97 Mechanical Ventilator 60 06/19/19 03:25 109 28 60 06/19/19 03:15 109 36 96/69 95 Mechanical Ventilator 60 06/19/19 03:00 109 29 121/69 100 Mechanical Ventilator 60 06/19/19 02:30 109 34 115/56 100 Mechanical Ventilator 60 06/19/19 02:23 109/56 06/19/19 02:15 107 32 109/56 100 Mechanical Ventilator 60 06/19/19 02:00 109 35 108/61 95 Mechanical Ventilator 60 06/19/19 02:00 109/56 06/19/19 01:45 104 34 120/72 100 Mechanical Ventilator 60 06/19/19 01:30 104 35 113/62 99 Mechanical Ventilator 60 06/19/19 01:15 103 33 112/61 100 Mechanical Ventilator 60 06/19/19 01:00 101 32 109/63 100 Mechanical Ventilator 60 06/19/19 01:00 113/62 06/19/19 00:59 101 33 60 06/19/19 00:30 98 31 103/67 98 Mechanical Ventilator 60 06/19/19 00:00 103/65 06/19/19 00:00 97.4 96 32 107/62 98 Mechanical Ventilator 60 06/19/19 00:00 Mechanical Ventilator 06/19/19 00:00 60 06/19/19 00:00 102 06/18/19 23:39 108/66 06/18/19 23:30 94 33 108/66 99 Mechanical Ventilator 60 06/18/19 23:00 93 33 114/61 100 Mechanical Ventilator 60 06/18/19 23:00 108/66 06/18/19 22:57 95 36 60 06/18/19 22:30 93 29 109/54 95 Mechanical Ventilator 60 06/18/19 22:00 102/52 06/18/19 22:00 95.9 92 31 102/54 94 Mechanical Ventilator 60 06/18/19 21:30 93 31 103/49 94 Mechanical Ventilator 60 06/18/19 21:12 94 32 60 06/18/19 21:00 92 31 93/46 93 Mechanical Ventilator 60 06/18/19 21:00 93/46 06/18/19 20:30 91 31 96/48 94 Mechanical Ventilator 60 06/18/19 20:09 83/43 06/18/19 20:08 89 30 83/43 93 Mechanical Ventilator 60 06/18/19 20:07 89 29 82/40 94 Mechanical Ventilator 60 06/18/19 20:00 92 06/18/19 20:00 80/39 06/18/19 20:00 95.4 90 30 81/40 94 Mechanical Ventilator 60 06/18/19 20:00 Mechanical Ventilator 06/18/19 20:00 60.0 40 06/18/19 19:30 105/52 06/18/19 19:30 93 33 105/52 96 Mechanical Ventilator 60 06/18/19 19:00 90 31 83/44 96 Mechanical Ventilator 60 06/18/19 19:00 104/54 06/18/19 18:40 93 29 60 06/18/19 18:00 91 32 101/51 97 Mechanical Ventilator 60 06/18/19 17:30 90 33 102/57 98 Mechanical Ventilator 60 06/18/19 17:22 93 34 40 06/18/19 17:00 91 29 104/54 98 Mechanical Ventilator 60 06/18/19 16:30 92 29 103/55 97 Mechanical Ventilator 60 06/18/19 16:00 40 06/18/19 16:00 97.7 94 31 99/50 94 Mechanical Ventilator 60 06/18/19 16:00 94 06/18/19 15:30 93 30 104/58 98 Mechanical Ventilator 60 06/18/19 15:04 98 31 40 06/18/19 15:00 93 31 102/54 98 Mechanical Ventilator 60 06/18/19 14:30 93 30 100/56 97 Mechanical Ventilator 60 06/18/19 14:00 93 28 103/65 97 Mechanical Ventilator 60 06/18/19 13:30 91 29 98/57 98 Mechanical Ventilator 60 06/18/19 13:00 91 30 109/59 97 Mechanical Ventilator 60 06/18/19 12:53 95 32 40 06/18/19 12:30 91 35 103/55 97 Mechanical Ventilator 60 06/18/19 12:00 40 06/18/19 12:00 98.0 90 33 104/55 98 Mechanical Ventilator 60 06/18/19 12:00 93 06/18/19 11:30 95 34 99/54 96 Mechanical Ventilator 60 06/18/19 11:06 92 26 40 06/18/19 11:00 99 32 113/56 87 Mechanical Ventilator 60 06/18/19 10:30 91 32 106/55 99 Mechanical Ventilator 60 06/18/19 10:00 92 31 108/58 99 Mechanical Ventilator 60 06/18/19 09:30 92 31 109/54 97 Mechanical Ventilator 60 06/18/19 09:00 91 33 40 06/18/19 09:00 90 34 103/56 99 Mechanical Ventilator 60 06/18/19 08:30 92 36 108/51 97 Mechanical Ventilator 60 06/18/19 08:20 94/56 06/18/19 08:18 Mechanical Ventilator Labs: Labs Test 06/16/19 17:00 06/16/19 17:50 06/16/19 18:42 06/17/19 01:20 White Blood Count 16.1 K/UL (4.8-10.8) Red Blood Count 2.61 M/UL (4.70-6.10) Hemoglobin 7.4 G/DL (14.2-18.0) Hematocrit 22.7 % (42.0-52.0) Mean Corpuscular Volume 87 FL (80-99) Mean Corpuscular Hemoglobin 28.3 PG (27.0-31.0) Mean Corpuscular Hemoglobin Concent 32.7 G/DL (32.0-36.0) Red Cell Distribution Width 15.0 % (11.6-14.8) Platelet Count 75 K/UL (150-450) Mean Platelet Volume 8.9 FL (6.5-10.1) Neutrophils (%) (Auto) % (45.0-75.0) Lymphocytes (%) (Auto) % (20.0-45.0) Monocytes (%) (Auto) % (1.0-10.0) Eosinophils (%) (Auto) % (0.0-3.0) Basophils (%) (Auto) % (0.0-2.0) Differential Total Cells Counted 100 Neutrophils % (Manual) 64 % (45-75) Lymphocytes % (Manual) 15 % (20-45) Monocytes % (Manual) 11 % (1-10) Eosinophils % (Manual) 0 % (0-3) Basophils % (Manual) 0 % (0-2) Band Neutrophils 10 % (0-8) Nucleated Red Blood Cells 17 /100 WBC Platelet Estimate Decreased Platelet Morphology Normal Hypochromasia 1+ Anisocytosis 1+ Prothrombin Time 11.4 SEC (9.30-11.50) Prothromb Time International Ratio 1.1 (0.9-1.1) Activated Partial Thromboplast Time 38 SEC (23-33) Sodium Level 109 MMOL/L (136-145) Potassium Level 6.2 MMOL/L (3.5-5.1) 6.0 MMOL/L (3.5-5.1) Chloride Level 77 MMOL/L (98-107) Carbon Dioxide Level 20 MMOL/L (21-32) Anion Gap 12 mmol/L (5-15) Blood Urea Nitrogen 67 mg/dL (7-18) Creatinine 1.4 MG/DL (0.55-1.30) Estimat Glomerular Filtration Rate mL/min (>60) Glucose Level 284 MG/DL (74-106) Lactic Acid Level 7.30 mmol/L (0.4-2.0) 5.50 mmol/L (0.66-2.22) 2.80 mmol/L (0.4-2.0) Calcium Level 8.9 MG/DL (8.5-10.1) Total Bilirubin 0.3 MG/DL (0.2-1.0) Aspartate Amino Transf (AST/SGOT) 41 U/L (15-37) Alanine Aminotransferase (ALT/SGPT) 35 U/L (12-78) Alkaline Phosphatase 171 U/L (46-116) Total Creatine Kinase 90 U/L (26-308) Creatine Kinase MB 5.7 NG/ML (0.0-3.6) Creatine Kinase MB Relative Index 6.3 Troponin I 0.000 ng/mL (0.000-0.056) Pro-B-Type Natriuretic Peptide 187 pg/mL (0-125) Total Protein 8.2 G/DL (6.4-8.2) Albumin 1.7 G/DL (3.4-5.0) Globulin 6.5 g/dL Albumin/Globulin Ratio 0.3 (1.0-2.7) Urine Color Yellow Urine Appearance Clear Urine pH 5 (4.5-8.0) Urine Specific [place] 1.015 (1.005-1.035) Urine Protein Negative (NEGATIVE) Urine Glucose (UA) Negative (NEGATIVE) Urine Ketones Negative (NEGATIVE) Urine Blood Negative (NEGATIVE) Urine Nitrite Negative (NEGATIVE) Urine Bilirubin Negative (NEGATIVE) Urine Urobilinogen Normal MG/DL (0.0-1.0) Urine Leukocyte Esterase 1+ (NEGATIVE) Urine RBC 0-2 /HPF (0 - 0) Urine WBC 2-4 /HPF (0 - 0) Urine Squamous Epithelial Cells None /LPF (NONE/OCC) Urine Amorphous Sediment Moderate /LPF (NONE) Urine Bacteria Few /HPF (NONE) Test 06/17/19 06:05 06/17/19 10:45 06/17/19 11:50 06/17/19 15:05 White Blood Count 18.1 K/UL (4.8-10.8) Red Blood Count 3.17 M/UL (4.70-6.10) Hemoglobin 9.4 G/DL (14.2-18.0) Hematocrit 28.1 % (42.0-52.0) Mean Corpuscular Volume 89 FL (80-99) Mean Corpuscular Hemoglobin 29.7 PG (27.0-31.0) Mean Corpuscular Hemoglobin Concent 33.5 G/DL (32.0-36.0) Red Cell Distribution Width 15.1 % (11.6-14.8) Platelet Count 61 K/UL (150-450) Mean Platelet Volume 9.1 FL (6.5-10.1) Neutrophils (%) (Auto) % (45.0-75.0) Lymphocytes (%) (Auto) % (20.0-45.0) Monocytes (%) (Auto) % (1.0-10.0) Eosinophils (%) (Auto) % (0.0-3.0) Basophils (%) (Auto) % (0.0-2.0) Differential Total Cells Counted 100 Neutrophils % (Manual) 85 % (45-75) Lymphocytes % (Manual) 4 % (20-45) Monocytes % (Manual) 4 % (1-10) Eosinophils % (Manual) 0 % (0-3) Basophils % (Manual) 0 % (0-2) Band Neutrophils 7 % (0-8) Nucleated Red Blood Cells 6 /100 WBC Platelet Estimate Decreased Platelet Morphology Normal Anisocytosis 1+ Sodium Level 116 MMOL/L (136-145) 123 MMOL/L (136-145) Potassium Level 6.0 MMOL/L (3.5-5.1) 5.7 MMOL/L (3.5-5.1) Chloride Level 90 MMOL/L (98-107) 96 MMOL/L (98-107) Carbon Dioxide Level 20 MMOL/L (21-32) 21 MMOL/L (21-32) Anion Gap 6 mmol/L (5-15) 6 mmol/L (5-15) Blood Urea Nitrogen 53 mg/dL (7-18) 41 mg/dL (7-18) Creatinine 1.0 MG/DL (0.55-1.30) 1.0 MG/DL (0.55-1.30) Estimat Glomerular Filtration Rate mL/min (>60) mL/min (>60) Glucose Level 258 MG/DL (74-106) 202 MG/DL (74-106) Lactic Acid Level 2.20 mmol/L (0.4-2.0) 1.80 mmol/L (0.66-2.22) Calcium Level 8.2 MG/DL (8.5-10.1) 7.8 MG/DL (8.5-10.1) Total Bilirubin 0.5 MG/DL (0.2-1.0) Aspartate Amino Transf (AST/SGOT) 38 U/L (15-37) Alanine Aminotransferase (ALT/SGPT) 30 U/L (12-78) Alkaline Phosphatase 143 U/L (46-116) Total Protein 7.1 G/DL (6.4-8.2) Albumin 1.4 G/DL (3.4-5.0) Globulin 5.7 g/dL Albumin/Globulin Ratio 0.2 (1.0-2.7) Thyroid Stimulating Hormone (TSH) 1.708 uiU/mL (0.358-3.740) Cortisol AM Sample 11.7 UG/DL Random Vancomycin Level 14.6 ug/mL Urine Osmolality 435 mOsm/kg (429-449) Test 06/17/19 17:45 06/18/19 05:24 06/18/19 10:00 06/19/19 04:30 Sodium Level 123 MMOL/L (136-145) 128 MMOL/L (136-145) 133 MMOL/L (136-145) Potassium Level 5.7 MMOL/L (3.5-5.1) 5.0 MMOL/L (3.5-5.1) 4.9 MMOL/L (3.5-5.1) Chloride Level 96 MMOL/L (98-107) 102 MMOL/L (98-107) 105 MMOL/L (98-107) Carbon Dioxide Level 22 MMOL/L (21-32) 19 MMOL/L (21-32) 22 MMOL/L (21-32) Anion Gap 6 mmol/L (5-15) 7 mmol/L (5-15) 6 mmol/L (5-15) Blood Urea Nitrogen 41 mg/dL (7-18) 27 mg/dL (7-18) 12 mg/dL (7-18) Creatinine 1.0 MG/DL (0.55-1.30) 0.9 MG/DL (0.55-1.30) 0.9 MG/DL (0.55-1.30) Estimat Glomerular Filtration Rate mL/min (>60) mL/min (>60) mL/min (>60) Glucose Level 173 MG/DL (74-106) 200 MG/DL (74-106) 129 MG/DL (74-106) Calcium Level 8.0 MG/DL (8.5-10.1) 8.0 MG/DL (8.5-10.1) 8.7 MG/DL (8.5-10.1) Total Bilirubin 0.4 MG/DL (0.2-1.0) 0.4 MG/DL (0.2-1.0) 0.5 MG/DL (0.2-1.0) Aspartate Amino Transf (AST/SGOT) 32 U/L (15-37) 39 U/L (15-37) 28 U/L (15-37) Alanine Aminotransferase (ALT/SGPT) 27 U/L (12-78) 27 U/L (12-78) 26 U/L (12-78) Alkaline Phosphatase 129 U/L (46-116) 120 U/L (46-116) 139 U/L (46-116) Total Protein 6.8 G/DL (6.4-8.2) 6.5 G/DL (6.4-8.2) 7.4 G/DL (6.4-8.2) Albumin 1.4 G/DL (3.4-5.0) 1.3 G/DL (3.4-5.0) 1.9 G/DL (3.4-5.0) Globulin 5.4 g/dL 5.2 g/dL 5.5 g/dL Albumin/Globulin Ratio 0.3 (1.0-2.7) 0.2 (1.0-2.7) 0.3 (1.0-2.7) White Blood Count 11.3 K/UL (4.8-10.8) 11.2 K/UL (4.8-10.8) Red Blood Count 2.67 M/UL (4.70-6.10) 2.62 M/UL (4.70-6.10) Hemoglobin 7.9 G/DL (14.2-18.0) 7.7 G/DL (14.2-18.0) Hematocrit 23.6 % (42.0-52.0) 23.4 % (42.0-52.0) Mean Corpuscular Volume 89 FL (80-99) 90 FL (80-99) Mean Corpuscular Hemoglobin 29.5 PG (27.0-31.0) 29.4 PG (27.0-31.0) Mean Corpuscular Hemoglobin Concent 33.3 G/DL (32.0-36.0) 32.9 G/DL (32.0-36.0) Red Cell Distribution Width 15.5 % (11.6-14.8) 16.0 % (11.6-14.8) Platelet Count 61 K/UL (150-450) 58 K/UL (150-450) Mean Platelet Volume 9.1 FL (6.5-10.1) 7.9 FL (6.5-10.1) Neutrophils (%) (Auto) % (45.0-75.0) % (45.0-75.0) Lymphocytes (%) (Auto) % (20.0-45.0) % (20.0-45.0) Monocytes (%) (Auto) % (1.0-10.0) % (1.0-10.0) Eosinophils (%) (Auto) % (0.0-3.0) % (0.0-3.0) Basophils (%) (Auto) % (0.0-2.0) % (0.0-2.0) Differential Total Cells Counted 100 Neutrophils % (Manual) 73 % (45-75) Lymphocytes % (Manual) 17 % (20-45) Monocytes % (Manual) 10 % (1-10) Eosinophils % (Manual) 0 % (0-3) Basophils % (Manual) 0 % (0-2) Band Neutrophils 0 % (0-8) Nucleated Red Blood Cells 2 /100 WBC Platelet Estimate Decreased Platelet Morphology Normal Hypochromasia Anisocytosis 1+ Objective: WDWN trach and vent reduced breath sounds bilaterally with scattered rhonchi [id number] without MRG NABS nontender no HSM; GT; no distention no CCE nonfocal poor LOC skin exam reviewed reviewed and examined Micro: Microbiology Date/Time Source Procedure Growth Status 06/16/19 17:15 Blood Blood Culture - Preliminary NO GROWTH AFTER 48 HOURS Resulted 06/16/19 17:00 Blood Blood Culture - Preliminary NO GROWTH AFTER 48 HOURS Resulted 06/16/19 18:42 Nasal Nares Left MRSA Culture - Final NO METHICILLIN RESISTANT STAPH AUREUS... Complete 06/16/19 16:50 Sputum Gram Stain - Final Resulted 06/16/19 16:50 Sputum Culture - Preliminary Gram Negative Bacillus 1 Resulted 06/16/19 18:50 Rectum VRE Culture - Final Enterococcus Faecalis - Vre Complete Accucheck: 166 Bakari Montanez MD Jun 19, 2019 08:19
[2019-06-19] MEDS: levETIRAcetam 500mg/5ml Liquid GT SCH ×2 (09:30→20:30)
[2019-06-19] MEDS: Pantoprazole Inj IVP SCH (09:31)
--- NOTE | 2019-06-19 10:24 | Infectious Diseases Prog Note ---
Assessment/Plan Assessment/Plan A 1. Gram negative pneumonia 2. shock, off of pressor 3. cirrhosis 4.Ventilatory dependent respiratory failure 5. 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 continue vancomycin iv & Zosyn 2. will follow up cultures Subjective ROS Limited/Unobtainable: Yes Constitutional: Denies: fever Cardiovascular: Reports: other - off of pressor Neurologic: Reports: other - mouth twiching movements Allergies: Coded Allergies: No Known Allergies (Unverified , 07/04/18) Objective Vital Signs Last 24 Hour Vital Signs Date Time Temp Pulse Resp B/P (MAP) Pulse Ox O2 Delivery O2 Flow Rate FiO2 06/19/19 09:00 98.1 101 33 102/57 100 Mechanical Ventilator 60 06/19/19 08:34 101 31 60 06/19/19 08:00 60 06/19/19 08:00 101 33 108/55 98 Mechanical Ventilator 60 06/19/19 07:15 103 31 60 06/19/19 07:00 96.5 104 33 103/58 100 Mechanical Ventilator 60 06/19/19 06:15 101 33 112/64 98 Mechanical Ventilator 60 06/19/19 06:00 101 34 119/59 98 Mechanical Ventilator 60 06/19/19 05:45 103 34 106/57 100 Mechanical Ventilator 60 06/19/19 05:30 103 35 114/58 100 Mechanical Ventilator 60 06/19/19 05:03 106 33 60 06/19/19 05:00 104 32 113/53 97 Mechanical Ventilator 60 06/19/19 04:30 104 31 114/62 91 Mechanical Ventilator 60 06/19/19 04:15 106 31 117/62 94 Mechanical Ventilator 60 06/19/19 04:00 60 06/19/19 04:00 Mechanical Ventilator 06/19/19 04:00 106 06/19/19 04:00 97.5 107 34 152/135 98 Mechanical Ventilator 60 06/19/19 03:53 119/75 06/19/19 03:45 109 35 136/117 97 Mechanical Ventilator 60 06/19/19 03:30 109 32 121/79 97 Mechanical Ventilator 60 06/19/19 03:25 109 28 60 06/19/19 03:15 109 36 96/69 95 Mechanical Ventilator 60 06/19/19 03:00 109 29 121/69 100 Mechanical Ventilator 60 06/19/19 02:30 109 34 115/56 100 Mechanical Ventilator 60 06/19/19 02:23 109/56 06/19/19 02:15 107 32 109/56 100 Mechanical Ventilator 60 06/19/19 02:00 109 35 108/61 95 Mechanical Ventilator 60 06/19/19 02:00 109/56 06/19/19 01:45 104 34 120/72 100 Mechanical Ventilator 60 06/19/19 01:30 104 35 113/62 99 Mechanical Ventilator 60 06/19/19 01:15 103 33 112/61 100 Mechanical Ventilator 60 06/19/19 01:00 101 32 109/63 100 Mechanical Ventilator 60 06/19/19 01:00 113/62 06/19/19 00:59 101 33 60 06/19/19 00:30 98 31 103/67 98 Mechanical Ventilator 60 06/19/19 00:00 103/65 06/19/19 00:00 97.4 96 32 107/62 98 Mechanical Ventilator 60 06/19/19 00:00 Mechanical Ventilator 06/19/19 00:00 60 06/19/19 00:00 102 06/18/19 23:39 108/66 06/18/19 23:30 94 33 108/66 99 Mechanical Ventilator 60 06/18/19 23:00 93 33 114/61 100 Mechanical Ventilator 60 06/18/19 23:00 108/66 06/18/19 22:57 95 36 60 06/18/19 22:30 93 29 109/54 95 Mechanical Ventilator 60 06/18/19 22:00 102/52 06/18/19 22:00 95.9 92 31 102/54 94 Mechanical Ventilator 60 06/18/19 21:30 93 31 103/49 94 Mechanical Ventilator 60 06/18/19 21:12 94 32 60 06/18/19 21:00 92 31 93/46 93 Mechanical Ventilator 60 06/18/19 21:00 93/46 06/18/19 20:30 91 31 96/48 94 Mechanical Ventilator 60 06/18/19 20:09 83/43 06/18/19 20:08 89 30 83/43 93 Mechanical Ventilator 60 06/18/19 20:07 89 29 82/40 94 Mechanical Ventilator 60 06/18/19 20:00 92 06/18/19 20:00 80/39 06/18/19 20:00 95.4 90 30 81/40 94 Mechanical Ventilator 60 06/18/19 20:00 Mechanical Ventilator 06/18/19 20:00 60.0 40 06/18/19 19:30 105/52 06/18/19 19:30 93 33 105/52 96 Mechanical Ventilator 60 06/18/19 19:00 90 31 83/44 96 Mechanical Ventilator 60 06/18/19 19:00 104/54 06/18/19 18:40 93 29 60 06/18/19 18:00 91 32 101/51 97 Mechanical Ventilator 60 06/18/19 17:30 90 33 102/57 98 Mechanical Ventilator 60 06/18/19 17:22 93 34 40 06/18/19 17:00 91 29 104/54 98 Mechanical Ventilator 60 06/18/19 16:30 92 29 103/55 97 Mechanical Ventilator 60 06/18/19 16:00 40 06/18/19 16:00 97.7 94 31 99/50 94 Mechanical Ventilator 60 06/18/19 16:00 94 06/18/19 15:30 93 30 104/58 98 Mechanical Ventilator 60 06/18/19 15:04 98 31 40 06/18/19 15:00 93 31 102/54 98 Mechanical Ventilator 60 06/18/19 14:30 93 30 100/56 97 Mechanical Ventilator 60 06/18/19 14:00 93 28 103/65 97 Mechanical Ventilator 60 06/18/19 13:30 91 29 98/57 98 Mechanical Ventilator 60 06/18/19 13:00 91 30 109/59 97 Mechanical Ventilator 60 06/18/19 12:53 95 32 40 06/18/19 12:30 91 35 103/55 97 Mechanical Ventilator 60 06/18/19 12:00 40 06/18/19 12:00 98.0 90 33 104/55 98 Mechanical Ventilator 60 06/18/19 12:00 93 06/18/19 11:30 95 34 99/54 96 Mechanical Ventilator 60 06/18/19 11:06 92 26 40 06/18/19 11:00 99 32 113/56 87 Mechanical Ventilator 60 06/18/19 10:30 91 32 106/55 99 Mechanical Ventilator 60 Height (Feet): 5 Height (Inches): 8.00 Weight (Pounds): 216 HEENT: status post trach Respiratory/Chest: lungs clear, other - on ventilator Cardiovascular: tachycardia, other - RIJ central l;ine Abdomen: distended, other - GT in place Extremities: other - edema of hands Neurologic/Psychiatric: aphasia, other - mouth twiching Microbiology Date/Time Source Procedure Growth Status 06/16/19 17:15 Blood Blood Culture - Preliminary NO GROWTH AFTER 48 HOURS Resulted 06/16/19 17:00 Blood Blood Culture - Preliminary NO GROWTH AFTER 48 HOURS Resulted 06/16/19 18:42 Nasal Nares Left MRSA Culture - Final NO METHICILLIN RESISTANT STAPH AUREUS... Complete 06/16/19 16:50 Sputum Gram Stain - Final Resulted 06/16/19 16:50 Sputum Culture - Preliminary Gram Negative Bacillus 1 Gram Negative Bacillus 2 Resulted 06/16/19 18:50 Rectum VRE Culture - Final Enterococcus Faecalis - Vre Complete Laboratory Tests Test 06/19/19 04:30 White Blood Count 11.2 K/UL (4.8-10.8) H Red Blood Count 2.62 M/UL (4.70-6.10) L Hemoglobin 7.7 G/DL (14.2-18.0) L Hematocrit 23.4 % (42.0-52.0) L Mean Corpuscular Volume 90 FL (80-99) Mean Corpuscular Hemoglobin 29.4 PG (27.0-31.0) Mean Corpuscular Hemoglobin Concent 32.9 G/DL (32.0-36.0) Red Cell Distribution Width 16.0 % (11.6-14.8) H Platelet Count 58 K/UL (150-450) L Mean Platelet Volume 7.9 FL (6.5-10.1) Neutrophils (%) (Auto) % (45.0-75.0) Lymphocytes (%) (Auto) % (20.0-45.0) Monocytes (%) (Auto) % (1.0-10.0) Eosinophils (%) (Auto) % (0.0-3.0) Basophils (%) (Auto) % (0.0-2.0) Neutrophils % (Manual) Pending Lymphocytes % (Manual) Pending Platelet Estimate Pending Platelet Morphology Pending Sodium Level 133 MMOL/L (136-145) L Potassium Level 4.9 MMOL/L (3.5-5.1) Chloride Level 105 MMOL/L (98-107) Carbon Dioxide Level 22 MMOL/L (21-32) Anion Gap 6 mmol/L (5-15) Blood Urea Nitrogen 12 mg/dL (7-18) Creatinine 0.9 MG/DL (0.55-1.30) Estimat Glomerular Filtration Rate mL/min (>60) Glucose Level 129 MG/DL (74-106) H Calcium Level 8.7 MG/DL (8.5-10.1) Total Bilirubin 0.5 MG/DL (0.2-1.0) Aspartate Amino Transf (AST/SGOT) 28 U/L (15-37) Alanine Aminotransferase (ALT/SGPT) 26 U/L (12-78) Alkaline Phosphatase 139 U/L (46-116) H Total Protein 7.4 G/DL (6.4-8.2) Albumin 1.9 G/DL (3.4-5.0) L Globulin 5.5 g/dL Albumin/Globulin Ratio 0.3 (1.0-2.7) L Current Medications Medications (Trade) Dose Ordered Sig/Derrick Route PRN Reason Start Time Stop Time Status Last Admin Dose Admin Chlorhexidine Gluconate (Gwendolyn-Hex 2%) 1 applic DAILY@2000 TOPIC 06/18/19 20:00 07/18/19 19:59 06/18/19 20:58 Dextrose (Dextrose 50%) 25 ml Q30M PRN IV Hypoglycemia 06/17/19 08:00 07/17/19 07:59 Dextrose (Dextrose 50%) 50 ml Q30M PRN IV Hypoglycemia 06/17/19 08:00 07/17/19 07:59 Dextrose/Sodium Chloride 1,000 ml @ 50 mls/hr Q20H IV 06/18/19 17:30 07/18/19 17:29 06/18/19 17:50 Insulin Aspart (NovoLOG) BEFORE MEALS AND HS SUBQ 06/17/19 11:30 07/17/19 11:29 06/19/19 05:30 Levetiracetam (Keppra) 500 mg Q12HR GT 06/16/19 21:00 07/16/19 20:59 06/19/19 09:30 Norepinephrine Bitartrate 4 mg/ Dextrose 250 ml @ 0 mls/hr Q24H IV 06/17/19 20:30 07/17/19 20:29 06/18/19 08:20 Pantoprazole (Protonix) 40 mg DAILY IVP 06/18/19 17:30 07/18/19 17:29 06/19/19 09:31 Piperacillin Sod/ Tazobactam Sod 3.375 gm/Sodium Chloride 110 ml @ 27.5 mls/hr 0230,1030,1830 IVPB 06/17/19 02:30 06/24/19 02:29 06/19/19 02:30 Vancomycin HCl (Vanco rx to dose) 1 ea DAILY PRN MISC Per rx protocol 06/16/19 20:15 07/16/19 20:14 Vancomycin/Sodium Chloride 275 ml @ 137.5 mls/ hr Q24H IVPB 06/17/19 21:00 06/22/19 20:59 06/18/19 21:00 Carlos Amaro MD Jun 19, 2019 10:24
[2019-06-19] MEDS: D5NS 1,000 ML IV SCH ×2 (13:11→14:50)
--- NOTE | 2019-06-19 14:37 | Nephrology Progress Note ---
Assessment/Plan Problem List: (1) POPPY (acute kidney injury) (2) Hyponatremia (3) Renal insufficiency Plan improving, reducing iv fluid Subjective ROS Limited/Unobtainable: Yes Objective Objective Last 24 Hour Vital Signs Date Time Temp Pulse Resp B/P (MAP) Pulse Ox O2 Delivery O2 Flow Rate FiO2 06/19/19 13:10 98.6 90 33 107/63 99 Mechanical Ventilator 60 06/19/19 13:00 90 33 111/56 99 Mechanical Ventilator 60 06/19/19 12:50 90 30 60 06/19/19 12:00 98.6 93 35 108/59 99 Mechanical Ventilator 60 06/19/19 12:00 60 06/19/19 11:31 96 06/19/19 11:00 98.6 97 35 110/55 99 Mechanical Ventilator 60 06/19/19 10:52 95 35 60 06/19/19 10:42 98.5 97 34 103/56 99 Mechanical Ventilator 60 06/19/19 10:00 101 32 101/56 99 Mechanical Ventilator 60 06/19/19 09:00 98.1 101 33 102/57 100 Mechanical Ventilator 60 06/19/19 08:34 101 31 60 06/19/19 08:00 60 06/19/19 08:00 101 33 108/55 98 Mechanical Ventilator 60 06/19/19 08:00 102 06/19/19 07:15 103 31 60 06/19/19 07:00 96.5 104 33 103/58 100 Mechanical Ventilator 60 06/19/19 06:15 101 33 112/64 98 Mechanical Ventilator 60 06/19/19 06:00 101 34 119/59 98 Mechanical Ventilator 60 06/19/19 05:45 103 34 106/57 100 Mechanical Ventilator 60 06/19/19 05:30 103 35 114/58 100 Mechanical Ventilator 60 06/19/19 05:03 106 33 60 06/19/19 05:00 104 32 113/53 97 Mechanical Ventilator 60 06/19/19 04:30 104 31 114/62 91 Mechanical Ventilator 60 06/19/19 04:15 106 31 117/62 94 Mechanical Ventilator 60 06/19/19 04:00 60 06/19/19 04:00 Mechanical Ventilator 06/19/19 04:00 106 06/19/19 04:00 97.5 107 34 152/135 98 Mechanical Ventilator 60 06/19/19 03:53 119/75 10/10/19 03:45 109 35 136/117 97 Mechanical Ventilator 60 06/19/19 03:30 109 32 121/79 97 Mechanical Ventilator 60 06/19/19 03:25 109 28 60 06/19/19 03:15 109 36 96/69 95 Mechanical Ventilator 60 06/19/19 03:00 109 29 121/69 100 Mechanical Ventilator 60 06/19/19 02:30 109 34 115/56 100 Mechanical Ventilator 60 06/19/19 02:23 109/56 06/19/19 02:15 107 32 109/56 100 Mechanical Ventilator 60 06/19/19 02:00 109 35 108/61 95 Mechanical Ventilator 60 06/19/19 02:00 109/56 06/19/19 01:45 104 34 120/72 100 Mechanical Ventilator 60 06/19/19 01:30 104 35 113/62 99 Mechanical Ventilator 60 06/19/19 01:15 103 33 112/61 100 Mechanical Ventilator 60 06/19/19 01:00 101 32 109/63 100 Mechanical Ventilator 60 06/19/19 01:00 113/62 06/19/19 00:59 101 33 60 06/19/19 00:30 98 31 103/67 98 Mechanical Ventilator 60 06/19/19 00:00 103/65 06/19/19 00:00 97.4 96 32 107/62 98 Mechanical Ventilator 60 06/19/19 00:00 Mechanical Ventilator 06/19/19 00:00 60 06/19/19 00:00 102 06/18/19 23:39 108/66 06/18/19 23:30 94 33 108/66 99 Mechanical Ventilator 60 06/18/19 23:00 93 33 114/61 100 Mechanical Ventilator 60 06/18/19 23:00 108/66 06/18/19 22:57 95 36 60 06/18/19 22:30 93 29 109/54 95 Mechanical Ventilator 60 06/18/19 22:00 102/52 06/18/19 22:00 95.9 92 31 102/54 94 Mechanical Ventilator 60 06/18/19 21:30 93 31 103/49 94 Mechanical Ventilator 60 06/18/19 21:12 94 32 60 06/18/19 21:00 92 31 93/46 93 Mechanical Ventilator 60 06/18/19 21:00 93/46 06/18/19 20:30 91 31 96/48 94 Mechanical Ventilator 60 06/18/19 20:09 83/43 06/18/19 20:08 89 30 83/43 93 Mechanical Ventilator 60 06/18/19 20:07 89 29 82/40 94 Mechanical Ventilator 60 06/18/19 20:00 92 06/18/19 20:00 80/39 06/18/19 20:00 95.4 90 30 81/40 94 Mechanical Ventilator 60 06/18/19 20:00 Mechanical Ventilator 06/18/19 20:00 60.0 40 06/18/19 19:30 105/52 06/18/19 19:30 93 33 105/52 96 Mechanical Ventilator 60 06/18/19 19:00 90 31 83/44 96 Mechanical Ventilator 60 06/18/19 19:00 104/54 06/18/19 18:40 93 29 60 06/18/19 18:00 91 32 101/51 97 Mechanical Ventilator 60 06/18/19 17:30 90 33 102/57 98 Mechanical Ventilator 60 06/18/19 17:22 93 34 40 06/18/19 17:00 91 29 104/54 98 Mechanical Ventilator 60 06/18/19 16:30 92 29 103/55 97 Mechanical Ventilator 60 06/18/19 16:00 40 06/18/19 16:00 97.7 94 31 99/50 94 Mechanical Ventilator 60 06/18/19 16:00 94 06/18/19 15:30 93 30 104/58 98 Mechanical Ventilator 60 06/18/19 15:04 98 31 40 06/18/19 15:00 93 31 102/54 98 Mechanical Ventilator 60 Intake and Output 06/18/19 06/19/19 19:00 07:00 Intake Total 2082.5 ml 1393.75 ml Output Total 1110 ml 1230 ml Balance 972.5 ml 163.75 ml Intake Oral 0 ml Free Water 160 ml IV Total 2082.5 ml 1233.75 ml Output Urine Total 1110 ml 1230 ml Laboratory Tests 06/19/19 04:30: White Blood Count 11.2H, Red Blood Count 2.62L, Hemoglobin 7.7L, Hematocrit 23.4L, Mean Corpuscular Volume 90, Mean Corpuscular Hemoglobin 29.4, Mean Corpuscular Hemoglobin Concent 32.9, Red Cell Distribution Width 16.0H, Platelet Count 58L, Mean Platelet Volume 7.9, Neutrophils (%) (Auto) , Lymphocytes (%) (Auto) , Monocytes (%) (Auto) , Eosinophils (%) (Auto) , Basophils (%) (Auto) , Differential Total Cells Counted 100, Neutrophils % ( Manual) 87H, Lymphocytes % (Manual) 8L, Monocytes % (Manual) 3, Eosinophils % ( Manual) 0, Basophils % (Manual) 0, Band Neutrophils 2, Nucleated Red Blood Cells 3, Platelet Estimate DecreasedL, Platelet Morphology Normal, Hypochromasia 3+, Sodium Level 133L, Potassium Level 4.9, Chloride Level 105, Carbon Dioxide Level 22, Anion Gap 6, Blood Urea Nitrogen 12, Creatinine 0.9, Estimat Glomerular Filtration Rate , Glucose Level 129H, Calcium Level 8.7, Total Bilirubin 0.5, Aspartate Amino Transf (AST/SGOT) 28, Alanine Aminotransferase (ALT/SGPT) 26, Alkaline Phosphatase 139H, Total Protein 7.4, Albumin 1.9L, Globulin 5.5, Albumin/Globulin Ratio 0.3L Height (Feet): 5 Height (Inches): 8.00 Weight (Pounds): 216 General Appearance: no apparent distress, alert Neck: other - trach Cardiovascular: regular rhythm Respiratory/Chest: rhonchi - bilaterally Abdomen: no organomegaly Extremities: trace edema Neurologic: unresponsive Nik Deras MD Jun 19, 2019 14:37
[2019-06-19] MEDS: LORazepam Inj 2mg/ml 1ml IV PRN ×2 (14:50→20:43)
--- NOTE | 2019-06-19 15:12 | Surgery Progress Note ---
Surgery Progress Note Subjective Additional Comments exam noted. labs noted afebrile, HD stable Objective Last 24 Hour Vital Signs Date Time Temp Pulse Resp B/P (MAP) Pulse Ox O2 Delivery O2 Flow Rate FiO2 06/19/19 15:00 84 33 109/59 98 Mechanical Ventilator 60 06/19/19 14:31 85 34 60 06/19/19 14:00 89 33 112/61 99 Mechanical Ventilator 60 06/19/19 13:10 98.6 90 33 107/63 99 Mechanical Ventilator 60 06/19/19 13:00 90 33 111/56 99 Mechanical Ventilator 60 06/19/19 12:50 90 30 60 06/19/19 12:00 98.6 93 35 108/59 99 Mechanical Ventilator 60 06/19/19 12:00 60 06/19/19 11:31 96 06/19/19 11:00 98.6 97 35 110/55 99 Mechanical Ventilator 60 06/19/19 10:52 95 35 60 06/19/19 10:42 98.5 97 34 103/56 99 Mechanical Ventilator 60 06/19/19 10:00 101 32 101/56 99 Mechanical Ventilator 60 06/19/19 09:00 98.1 101 33 102/57 100 Mechanical Ventilator 60 06/19/19 08:34 101 31 60 06/19/19 08:00 60 06/19/19 08:00 101 33 108/55 98 Mechanical Ventilator 60 06/19/19 08:00 102 06/19/19 07:15 103 31 60 06/19/19 07:00 96.5 104 33 103/58 100 Mechanical Ventilator 60 06/19/19 06:15 101 33 112/64 98 Mechanical Ventilator 60 06/19/19 06:00 101 34 119/59 98 Mechanical Ventilator 60 06/19/19 05:45 103 34 106/57 100 Mechanical Ventilator 60 06/19/19 05:30 103 35 114/58 100 Mechanical Ventilator 60 06/19/19 05:03 106 33 60 06/19/19 05:00 104 32 113/53 97 Mechanical Ventilator 60 06/19/19 04:30 104 31 114/62 91 Mechanical Ventilator 60 06/19/19 04:15 106 31 117/62 94 Mechanical Ventilator 60 06/19/19 04:00 60 06/19/19 04:00 Mechanical Ventilator 06/19/19 04:00 106 06/19/19 04:00 97.5 107 34 152/135 98 Mechanical Ventilator 60 06/19/19 03:53 119/75 06/19/19 03:45 109 35 136/117 97 Mechanical Ventilator 60 06/19/19 03:30 109 32 121/79 97 Mechanical Ventilator 60 06/19/19 03:25 109 28 60 06/19/19 03:15 109 36 96/69 95 Mechanical Ventilator 60 06/19/19 03:00 109 29 121/69 100 Mechanical Ventilator 60 06/19/19 02:30 109 34 115/56 100 Mechanical Ventilator 60 06/19/19 02:23 109/56 06/19/19 02:15 107 32 109/56 100 Mechanical Ventilator 60 06/19/19 02:00 109 35 108/61 95 Mechanical Ventilator 60 06/19/19 02:00 109/56 06/19/19 01:45 104 34 120/72 100 Mechanical Ventilator 60 06/19/19 01:30 104 35 113/62 99 Mechanical Ventilator 60 06/19/19 01:15 103 33 112/61 100 Mechanical Ventilator 60 06/19/19 01:00 101 32 109/63 100 Mechanical Ventilator 60 06/19/19 01:00 113/62 06/19/19 00:59 101 33 60 06/19/19 00:30 98 31 103/67 98 Mechanical Ventilator 60 06/19/19 00:00 103/65 06/19/19 00:00 97.4 96 32 107/62 98 Mechanical Ventilator 60 06/19/19 00:00 Mechanical Ventilator 06/19/19 00:00 60 06/19/19 00:00 102 06/18/19 23:39 108/06/18/19 23:30 94 33 108/66 99 Mechanical Ventilator 60 06/18/19 23:00 93 33 114/61 100 Mechanical Ventilator 60 06/18/19 23:00 108/66 06/18/19 22:57 95 36 60 06/18/19 22:30 93 29 109/54 95 Mechanical Ventilator 60 06/18/19 22:00 102/52 06/18/19 22:00 95.9 92 31 102/54 94 Mechanical Ventilator 60 06/18/19 21:30 93 31 103/49 94 Mechanical Ventilator 60 06/18/19 21:12 94 32 60 06/18/19 21:00 92 31 93/46 93 Mechanical Ventilator 60 06/18/19 21:00 93/46 06/18/19 20:30 91 31 96/48 94 Mechanical Ventilator 60 06/18/19 20:09 83/43 06/18/19 20:08 89 30 83/43 93 Mechanical Ventilator 60 06/18/19 20:07 89 29 82/40 94 Mechanical Ventilator 60 06/18/19 20:00 92 06/18/19 20:00 80/39 06/18/19 20:00 95.4 90 30 81/40 94 Mechanical Ventilator 60 06/18/19 20:00 Mechanical Ventilator 06/18/19 20:00 60.0 40 06/18/19 19:30 105/52 06/18/19 19:30 93 33 105/52 96 Mechanical Ventilator 60 06/18/19 19:00 90 31 83/44 96 Mechanical Ventilator 60 06/18/19 19:00 104/54 06/18/19 18:40 93 29 60 06/18/19 18:00 91 32 101/51 97 Mechanical Ventilator 60 06/18/19 17:30 90 33 102/57 98 Mechanical Ventilator 60 06/18/19 17:22 93 34 40 06/18/19 17:00 91 29 104/54 98 Mechanical Ventilator 60 06/18/19 16:30 92 29 103/55 97 Mechanical Ventilator 60 06/18/19 16:00 40 06/18/19 16:00 97.7 94 31 99/50 94 Mechanical Ventilator 60 06/18/19 16:00 94 06/18/19 15:30 93 30 104/58 98 Mechanical Ventilator 60 I&O Intake and Output 06/18/19 06/19/19 19:00 07:00 Intake Total 2082.5 ml 1393.75 ml Output Total 1110 ml 1230 ml Balance 972.5 ml 163.75 ml Intake Oral 0 ml Free Water 160 ml IV Total 2082.5 ml 1233.75 ml Output Urine Total 1110 ml 1230 ml Dressing: saturated Wound: other Drains: other Cardiovascular: RSR Respiratory: decreased breath sounds Abdomen: soft, non-distended, decreased bowel sounds Extremities: no cyanosis Laboratory Tests Test 06/19/19 04:30 White Blood Count 11.2 K/UL (4.8-10.8) H Red Blood Count 2.62 M/UL (4.70-6.10) L Hemoglobin 7.7 G/DL (14.2-18.0) L Hematocrit 23.4 % (42.0-52.0) L Mean Corpuscular Volume 90 FL (80-99) Mean Corpuscular Hemoglobin 29.4 PG (27.0-31.0) Mean Corpuscular Hemoglobin Concent 32.9 G/DL (32.0-36.0) Red Cell Distribution Width 16.0 % (11.6-14.8) H Platelet Count 58 K/UL (150-450) L Mean Platelet Volume 7.9 FL (6.5-10.1) Neutrophils (%) (Auto) % (45.0-75.0) Lymphocytes (%) (Auto) % (20.0-45.0) Monocytes (%) (Auto) % (1.0-10.0) Eosinophils (%) (Auto) % (0.0-3.0) Basophils (%) (Auto) % (0.0-2.0) Differential Total Cells Counted 100 Neutrophils % (Manual) 87 % (45-75) H Lymphocytes % (Manual) 8 % (20-45) L Monocytes % (Manual) 3 % (1-10) Eosinophils % (Manual) 0 % (0-3) Basophils % (Manual) 0 % (0-2) Band Neutrophils 2 % (0-8) Nucleated Red Blood Cells 3 /100 WBC Platelet Estimate Decreased L Platelet Morphology Normal Hypochromasia 3+ Sodium Level 133 MMOL/L (136-145) L Potassium Level 4.9 MMOL/L (3.5-5.1) Chloride Level 105 MMOL/L (98-107) Carbon Dioxide Level 22 MMOL/L (21-32) Anion Gap 6 mmol/L (5-15) Blood Urea Nitrogen 12 mg/dL (7-18) Creatinine 0.9 MG/DL (0.55-1.30) Estimat Glomerular Filtration Rate mL/min (>60) Glucose Level 129 MG/DL (74-106) H Calcium Level 8.7 MG/DL (8.5-10.1) Total Bilirubin 0.5 MG/DL (0.2-1.0) Aspartate Amino Transf (AST/SGOT) 28 U/L (15-37) Alanine Aminotransferase (ALT/SGPT) 26 U/L (12-78) Alkaline Phosphatase 139 U/L (46-116) H Total Protein 7.4 G/DL (6.4-8.2) Albumin 1.9 G/DL (3.4-5.0) L Globulin 5.5 g/dL Albumin/Globulin Ratio 0.3 (1.0-2.7) L Plan Problems: (1) Leukocytosis (2) Decubitus skin ulcer Assessment & Plan: Pt presented on admission with multiple pressure injuries. Resolving pressure injury posterior neck under collar of trach. Base of wound has mostly pink epithelial with scattered small partial thickness wounds (L)2cm x (W)1.6cm. Tracheal stoma noted to have denuded area R side of stoma.. Resolving full thickness sacral pressure injury L sacrum (L)2.5cm x (W)1cm x (D) 0.2cm.[place] granulation at base of wound . Inferior but in close proximity to L sacral wound ,pt noted to have darker skin tone with scattered areas that are fluctuant and partially opened with small amt of sanguineous exudate noted (L) 9cm x (W)11.5cm. Resolving pressure injury noted to base of scrotum . Base of wound pink and dry (L)1cm x (W)0.8cm. Unstageable pressure injury noted to R heel extending into plantar aspect of R heel.At plantar aspect of heel soft necrosis noted that is oozing small amt brown purulent exudate(L)3cm x (W)3.5cm. Surrounding the area of necrosis, wound is black with fluctuance and marginal erythema along edges. Wound is malodorous.(L)8cm x (W)9.5cm. L heel is boggy with non-blanching erythema. Tx.Plan: Apply Cavilon Skin Barrier to posterior neck. Cover with Optifoam drsg. Change every 3 days and prn. Apply Moisture Barrier Paste to sacrum. Cover with Optifoam drsg. Change every 3days and prn. Apply Moisture Barrier Paste to Scrotum with each incontinence care. Apply Betadine to R heel . Cover with ABD pad and wrap with kerlix Daily and prn. Apply Cavilon Skin Barrier to R heel. Cover with Optifoam drsg. Change every 7 days and prn. APM/LARISSA Mattress overlay. Reposition at least every 2hours or as tolerated. Off-load heels with pillow. (3) Severe sepsis Assessment & Plan: Leukocytosis, lactic acidosis, hyperkalemia, hyponatremia. Severe sepsis Fluid resuscitation IV antibiotics as per infectious disease Trend labs Wound care as above We will follow with recommendations Thank you for this consultation Abdoul Lcuas Jun 19, 2019 15:12
[2019-06-19] MEDS ORDERED: levETIRAcetam 500mg/5ml Liquid GT SCH (15:15)
[2019-06-19] MEDS ORDERED: levETIRAcetam 500mg/NS100ml 100 ML IVPB ONE (15:15)
[2019-06-19] MEDS ORDERED: Phenytoin 500 MG in NS 110 ML IVPB ONE (18:00)
[2019-06-19] MEDS: Dyna-Hex 2% Top Sol 2oz TOPIC SCH (20:29)
[2019-06-19] MEDS: Vancomycin 1.5gm/NS Premix IVPB SCH (21:48)
[2019-06-19] MEDS ORDERED: Phenytoin Susp 100mg/4ml GT SCH (23:00)
[2019-06-20] VITALS (43 sets, daily range): BP systolic 108–152; BP diastolic 27–104
[2019-06-20] MEDS: Piperacillin/Tazobactam 3.375 GM in NS 110 ML IVPB SCH ×2 (02:40→09:48)
--- NOTE | 2019-06-20 04:01 | Progress Note ---
DATE: 06/19/2019 CARDIOLOGY PROGRESS NOTE SUBJECTIVE: The patient remains in the intensive care unit. Pressors are being tapered. Blood pressure remained tenuous. Ventilator support continues. OBJECTIVE: VITAL SIGNS: Blood pressure 112/64, heart rate 101, and respirations 33. Monitor, sinus tachycardia. LUNGS: Bilateral breath sounds. Thin trach secretions. HEART: Regular rhythm. Rapid rate. Normal S1, S2. ABDOMEN: Soft. EXTREMITIES: Trace edema. IMPRESSION: 1. Sepsis shock. 2. Respiratory failure. 3. Sinus tachycardia. 4. Hypothermia, resolving. 5. Seizure disorder. 6. Acute myocardial ischemia, recovered. 7. Severe protein-calorie malnutrition. PLAN: 1. Warming measures. 2. Ventilator support. 3. Taper off pressors. 4. Antimicrobials. 5. DVT and stress ulcer prophylaxis. 6. Condition remains critical and guarded. 7. Nutrition by feeding tube. [place] M.D. DR: DESMOND JOB#: [id number] CC:
[2019-06-20 05:27] LABS: HEMATOCRIT 27.2 % (42.0-52.0); HEMOGLOBIN 8.8 G/DL (14.2-18.0); MEAN CORPUSCULAR VOLUME 88 FL (80-99); PLATELET COUNT 71 K/UL (150-450); RED BLOOD COUNT 3.08 M/UL (4.70-6.10); RED CELL DISTRIBUTION WIDTH 16.6 % (11.6-14.8); WHITE BLOOD COUNT 19.6 K/UL (4.8-10.8)
[2019-06-20 05:43] LABS: ALANINE AMINOTRANSFERASE 25 U/L (12-78); ALBUMIN 1.8 G/DL (3.4-5.0); ALBUMIN/GLOBULIN RATIO 0.3 (1.0-2.7); ALKALINE PHOSPHATASE 163 U/L (46-116); ANION GAP 8 mmol/L (5-15); ASPARTATE AMINO TRANSFERASE 24 U/L (15-37); BILIRUBIN,TOTAL 0.4 MG/DL (0.2-1.0); BLOOD UREA NITROGEN 16 mg/dL (7-18); CALCIUM 8.6 MG/DL (8.5-10.1); CARBON DIOXIDE 21 MMOL/L (21-32); CHLORIDE 109 MMOL/L (98-107); POTASSIUM 4.5 MMOL/L (3.5-5.1); SODIUM 138 MMOL/L (136-145)
[2019-06-20] MEDS: NovoLOG Insulin Flexpen SUBQ SCH ×4 (06:10→20:21)
--- NOTE | 2019-06-20 08:14 | Nephrology Progress Note ---
Assessment/Plan Problem List: (1) POPPY (acute kidney injury) (2) Hyponatremia (3) Renal insufficiency Plan improving Na and poppy, reducing iv fluid, still with poor prognosis with severely low albumin ventilator dependent seizures Subjective ROS Limited/Unobtainable: Yes Objective Objective Last 24 Hour Vital Signs Date Time Temp Pulse Resp B/P (MAP) Pulse Ox O2 Delivery O2 Flow Rate FiO2 06/20/19 07:20 85 30 70 06/20/19 07:00 78 34 127/77 96 Mechanical Ventilator 80 06/20/19 07:00 127/77 06/20/19 06:00 146/81 06/20/19 06:00 87 34 129/72 97 Mechanical Ventilator 80 06/20/19 05:18 70 06/20/19 05:09 75 32 70 06/20/19 05:00 75 34 130/91 100 Mechanical Ventilator 80 06/20/19 05:00 137/76 06/20/19 04:00 Mechanical Ventilator 06/20/19 04:00 140/79 06/20/19 04:00 98.0 88 32 148/79 100 Mechanical Ventilator 80 06/20/19 04:00 89 06/20/19 04:00 80 06/20/19 03:45 100 37 152/104 91 Mechanical Ventilator 80 06/20/19 03:30 90 33 144/35 91 Mechanical Ventilator 80 06/20/19 03:15 91 36 137/41 93 Mechanical Ventilator 80 06/20/19 03:02 92 35 80 06/20/19 03:00 91 33 139/40 95 Mechanical Ventilator 80 06/20/19 03:00 137/41 06/20/19 02:45 90 33 145/38 95 Mechanical Ventilator 80 06/20/19 02:41 108/27 06/20/19 02:40 145/38 06/20/19 02:30 97 31 108/27 93 Mechanical Ventilator 80 06/20/19 02:15 95 31 138/34 91 Mechanical Ventilator 80 06/20/19 02:00 138/34 06/20/19 02:00 94 32 133/36 95 Mechanical Ventilator 80 06/20/19 01:45 92 32 131/31 95 Mechanical Ventilator 100 06/20/19 01:30 93 31 126/44 93 Mechanical Ventilator 100 06/20/19 01:17 94 39 80 06/20/19 01:15 78 35 136/35 100 Mechanical Ventilator 100 06/20/19 01:00 91 34 143/37 94 Mechanical Ventilator 100 06/20/19 01:00 136/35 06/20/19 00:45 87 31 139/48 100 Mechanical Ventilator 100 06/20/19 00:30 90 32 132/30 100 Mechanical Ventilator 100 06/20/19 00:00 Mechanical Ventilator 06/20/19 00:00 134/54 06/20/19 00:00 100 06/20/19 00:00 98.0 88 33 134/54 99 Mechanical Ventilator 100 06/20/19 00:00 82 06/19/19 23:24 90 33 100 06/19/19 23:00 131/45 06/19/19 23:00 84 32 131/45 99 Mechanical Ventilator 100 06/19/19 22:30 88 33 133/40 99 Mechanical Ventilator 100 06/19/19 22:00 72 32 125/37 100 Mechanical Ventilator 100 06/19/19 22:00 125/37 06/19/19 21:30 79 32 130/35 100 Mechanical Ventilator 100 06/19/19 21:00 85 32 126/35 100 Mechanical Ventilator 100 06/19/19 21:00 126/35 06/19/19 20:48 88 36 100 06/19/19 20:30 73 36 121/32 99 Mechanical Ventilator 100 06/19/19 20:18 100/28 06/19/19 20:00 68 06/19/19 20:00 98.0 70 32 129/39 96 Mechanical Ventilator 70 06/19/19 20:00 Mechanical Ventilator 06/19/19 20:00 100 06/19/19 19:30 70 32 129/39 96 Mechanical Ventilator 70 06/19/19 19:15 54 34 100 06/19/19 19:00 65 30 76/28 89 Mechanical Ventilator 60 06/19/19 19:00 83/40 06/19/19 18:50 85/48 06/19/19 18:00 71 34 96/59 99 Mechanical Ventilator 60 06/19/19 17:00 84 32 105/58 99 Mechanical Ventilator 60 06/19/19 16:42 86 32 60 06/19/19 16:00 98.5 81 32 117/61 97 Mechanical Ventilator 60 06/19/19 16:00 85 06/19/19 16:00 60 06/19/19 15:00 84 33 109/59 98 Mechanical Ventilator 60 06/19/19 14:31 85 34 60 06/19/19 14:00 89 33 112/61 99 Mechanical Ventilator 60 06/19/19 13:10 98.6 90 33 107/63 99 Mechanical Ventilator 60 06/19/19 13:00 90 33 111/56 99 Mechanical Ventilator 60 06/19/19 12:50 90 30 60 06/19/19 12:00 98.6 93 35 108/59 99 Mechanical Ventilator 60 06/19/19 12:00 60 06/19/19 11:31 96 06/19/19 11:00 98.6 97 35 110/55 99 Mechanical Ventilator 60 06/19/19 10:52 95 35 60 06/19/19 10:42 98.5 97 34 103/56 99 Mechanical Ventilator 60 06/19/19 10:00 101 32 101/56 99 Mechanical Ventilator 60 06/19/19 09:00 98.1 101 33 102/57 100 Mechanical Ventilator 60 06/19/19 08:34 101 31 60 Intake and Output 06/19/19 06/20/19 18:59 06:59 Intake Total 908.32 ml 1263.12 ml Output Total 510 ml 850 ml Balance 398.32 ml 413.12 ml Free Water 30 ml IV Total 628.32 ml 1263.12 ml Blood Product 250 ml Output Urine Total 510 ml 850 ml # Bowel Movements 3 Laboratory Tests 06/19/19 20:25: Vancomycin Level Trough 15.6H 06/20/19 04:20: White Blood Count 19.6#H, Red Blood Count 3.08L, Hemoglobin 8.8L, Hematocrit 27.2L, Mean Corpuscular Volume 88, Mean Corpuscular Hemoglobin 28.8, Mean Corpuscular Hemoglobin Concent 32.6, Red Cell Distribution Width 16.6H, Platelet Count 71L, Mean Platelet Volume 7.7, Neutrophils (%) (Auto) , Lymphocytes (%) (Auto) , Monocytes (%) (Auto) , Eosinophils (%) (Auto) , Basophils (%) (Auto) , Neutrophils % (Manual) [Pending], Lymphocytes % (Manual) [Pending], Platelet Estimate [Pending], Platelet Morphology [Pending], Sodium Level 138, Potassium Level 4.5, Chloride Level 109H, Carbon Dioxide Level 21, Anion Gap 8, Blood Urea Nitrogen 16, Creatinine 1.0, Estimat Glomerular Filtration Rate , Glucose Level 184H, Calcium Level 8.6, Total Bilirubin 0.4, Aspartate Amino Transf (AST/SGOT) 24, Alanine Aminotransferase (ALT/SGPT) 25, Alkaline Phosphatase 163H, Total Protein 7.3, Albumin 1.8L, Globulin 5.5, Albumin/Globulin Ratio 0.3L Height (Feet): 5 Height (Inches): 8.00 Weight (Pounds): 209 General Appearance: morbidly obese, other - On ventilator Cardiovascular: regular rhythm Respiratory/Chest: rhonchi - bilaterally Abdomen: non tender, no organomegaly Extremities: trace edema Neurologic: other - Having facial twitching Nik Deras MD Jun 20, 2019 08:14
[2019-06-20] MEDS: Pantoprazole Inj IVP SCH (08:56)
[2019-06-20] MEDS: levETIRAcetam 500mg/5ml Liquid GT SCH ×2 (08:56→20:20)
--- NOTE | 2019-06-20 13:13 | Infectious Diseases Prog Note ---
Assessment/Plan Assessment/Plan A 1. Proteus & Serratia pneumonia 2. shock, 3. cirrhosis 4.Ventilatory dependent respiratory failure 5. 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 Discontinue vancomycin iv & Zosyn 2. Start on Rocephin Subjective ROS Limited/Unobtainable: Yes Constitutional: Denies: fever Neurologic: Reports: other - twiching of mouth & tongue Allergies: Coded Allergies: No Known Allergies (Unverified , 07/04/18) Objective Vital Signs Last 24 Hour Vital Signs Date Time Temp Pulse Resp B/P (MAP) Pulse Ox O2 Delivery O2 Flow Rate FiO2 06/20/19 13:00 129/82 06/20/19 12:00 97.2 83 37 127/92 95 Mechanical Ventilator 70 06/20/19 12:00 130/76 06/20/19 12:00 70 06/20/19 11:39 81 06/20/19 11:30 82 36 123/74 95 Mechanical Ventilator 70 06/20/19 11:00 86 39 113/72 94 Mechanical Ventilator 70 06/20/19 11:00 123/74 06/20/19 10:34 92 33 70 06/20/19 10:00 77 33 112/66 95 Mechanical Ventilator 70 06/20/19 10:00 112/66 06/20/19 09:00 84 37 111/70 95 Mechanical Ventilator 70 06/20/19 09:00 111/70 06/20/19 08:57 92 39 70 06/20/19 08:45 94 34 116/67 91 Mechanical Ventilator 70 06/20/19 08:30 79 36 116/67 96 Mechanical Ventilator 70 06/20/19 08:15 79 34 119/66 96 Mechanical Ventilator 70 06/20/19 08:00 121/70 06/20/19 08:00 97.8 78 35 121/70 95 Mechanical Ventilator 70 06/20/19 07:32 73 06/20/19 07:20 85 30 70 06/20/19 07:00 78 34 127/77 96 Mechanical Ventilator 80 06/20/19 07:00 127/77 06/20/19 06:00 146/81 06/20/19 06:00 87 34 129/72 97 Mechanical Ventilator 80 06/20/19 05:18 70 06/20/19 05:09 75 32 70 06/20/19 05:00 75 34 130/91 100 Mechanical Ventilator 80 06/20/19 05:00 137/76 06/20/19 04:00 Mechanical Ventilator 06/20/19 04:00 140/79 06/20/19 04:00 98.0 88 32 148/79 100 Mechanical Ventilator 80 06/20/19 04:00 89 06/20/19 04:00 80 06/20/19 03:45 100 37 152/104 91 Mechanical Ventilator 80 06/20/19 03:30 90 33 144/35 91 Mechanical Ventilator 80 06/20/19 03:15 91 36 137/41 93 Mechanical Ventilator 80 06/20/19 03:02 92 35 80 06/20/19 03:00 91 33 139/40 95 Mechanical Ventilator 80 06/20/19 03:00 137/41 06/20/19 02:45 90 33 145/38 95 Mechanical Ventilator 80 06/20/19 02:41 108/27 06/20/19 02:40 145/38 06/20/19 02:30 97 31 108/27 93 Mechanical Ventilator 80 06/20/19 02:15 95 31 138/34 91 Mechanical Ventilator 80 06/20/19 02:00 138/34 06/20/19 02:00 94 32 133/36 95 Mechanical Ventilator 80 06/20/19 01:45 92 32 131/31 95 Mechanical Ventilator 100 06/20/19 01:30 93 31 126/44 93 Mechanical Ventilator 100 06/20/19 01:17 94 39 80 06/20/19 01:15 78 35 136/35 100 Mechanical Ventilator 100 06/20/19 01:00 91 34 143/37 94 Mechanical Ventilator 100 06/20/19 01:00 136/35 06/20/19 00:45 87 31 139/48 100 Mechanical Ventilator 100 06/20/19 00:30 90 32 132/30 100 Mechanical Ventilator 100 06/20/19 00:00 Mechanical Ventilator 06/20/19 00:00 134/54 06/20/19 00:00 100 06/20/19 00:00 98.0 88 33 134/54 99 Mechanical Ventilator 100 06/20/19 00:00 82 06/19/19 23:24 90 33 100 06/19/19 23:00 131/45 06/19/19 23:00 84 32 131/45 99 Mechanical Ventilator 100 06/19/19 22:30 88 33 133/40 99 Mechanical Ventilator 100 06/19/19 22:00 72 32 125/37 100 Mechanical Ventilator 100 06/19/19 22:00 125/37 06/19/19 21:30 79 32 130/35 100 Mechanical Ventilator 100 06/19/19 21:00 85 32 126/35 100 Mechanical Ventilator 100 06/19/19 21:00 126/35 06/19/19 20:48 88 36 100 06/19/19 20:30 73 36 121/32 99 Mechanical Ventilator 100 06/19/19 20:18 100/28 06/19/19 20:00 68 06/19/19 20:00 98.0 70 32 129/39 96 Mechanical Ventilator 70 06/19/19 20:00 Mechanical Ventilator 06/19/19 20:00 100 06/19/19 19:30 70 32 129/39 96 Mechanical Ventilator 70 06/19/19 19:15 54 34 100 06/19/19 19:00 65 30 76/28 89 Mechanical Ventilator 60 06/19/19 19:00 83/40 06/19/19 18:50 85/48 06/19/19 18:00 71 34 96/59 99 Mechanical Ventilator 60 06/19/19 17:00 84 32 105/58 99 Mechanical Ventilator 60 06/19/19 16:42 86 32 60 06/19/19 16:00 98.5 81 32 117/61 97 Mechanical Ventilator 60 06/19/19 16:00 85 06/19/19 16:00 60 06/19/19 15:00 84 33 109/59 98 Mechanical Ventilator 60 06/19/19 14:31 85 34 60 06/19/19 14:00 89 33 112/61 99 Mechanical Ventilator 60 06/19/19 13:10 98.6 90 33 107/63 99 Mechanical Ventilator 60 Height (Feet): 5 Height (Inches): 8.00 Weight (Pounds): 209 HEENT: status post trach Respiratory/Chest: lungs clear, other - on ventilator Cardiovascular: normal rate, other - RIJ central line Abdomen: soft, non tender, other - GT feeding Extremities: other - anasarca Skin: ulcers, other - R heel unstagable ulcer Neurologic/Psychiatric: aphasia Laboratory Tests Test 06/19/19 20:25 06/20/19 04:20 Vancomycin Level Trough 15.6 ug/mL (5.0-12.0) H White Blood Count 19.6 K/UL (4.8-10.8) #H Red Blood Count 3.08 M/UL (4.70-6.10) L Hemoglobin 8.8 G/DL (14.2-18.0) L Hematocrit 27.2 % (42.0-52.0) L Mean Corpuscular Volume 88 FL (80-99) Mean Corpuscular Hemoglobin 28.8 PG (27.0-31.0) Mean Corpuscular Hemoglobin Concent 32.6 G/DL (32.0-36.0) Red Cell Distribution Width 16.6 % (11.6-14.8) H Platelet Count 71 K/UL (150-450) L Mean Platelet Volume 7.7 FL (6.5-10.1) Neutrophils (%) (Auto) % (45.0-75.0) Lymphocytes (%) (Auto) % (20.0-45.0) Monocytes (%) (Auto) % (1.0-10.0) Eosinophils (%) (Auto) % (0.0-3.0) Basophils (%) (Auto) % (0.0-2.0) Differential Total Cells Counted 100 Neutrophils % (Manual) 82 % (45-75) H Lymphocytes % (Manual) 11 % (20-45) L Monocytes % (Manual) 6 % (1-10) Eosinophils % (Manual) 0 % (0-3) Basophils % (Manual) 0 % (0-2) Band Neutrophils 1 % (0-8) Nucleated Red Blood Cells 3 /100 WBC Platelet Estimate Decreased L Platelet Morphology Normal Hypochromasia 2+ Anisocytosis 1+ Spherocytes 1+ Sodium Level 138 MMOL/L (136-145) Potassium Level 4.5 MMOL/L (3.5-5.1) Chloride Level 109 MMOL/L (98-107) H Carbon Dioxide Level 21 MMOL/L (21-32) Anion Gap 8 mmol/L (5-15) Blood Urea Nitrogen 16 mg/dL (7-18) Creatinine 1.0 MG/DL (0.55-1.30) Estimat Glomerular Filtration Rate mL/min (>60) Glucose Level 184 MG/DL (74-106) H Calcium Level 8.6 MG/DL (8.5-10.1) Total Bilirubin 0.4 MG/DL (0.2-1.0) Aspartate Amino Transf (AST/SGOT) 24 U/L (15-37) Alanine Aminotransferase (ALT/SGPT) 25 U/L (12-78) Alkaline Phosphatase 163 U/L (46-116) H Total Protein 7.3 G/DL (6.4-8.2) Albumin 1.8 G/DL (3.4-5.0) L Globulin 5.5 g/dL Albumin/Globulin Ratio 0.3 (1.0-2.7) L Current Medications Medications (Trade) Dose Ordered Sig/Derrick Route PRN Reason Start Time Stop Time Status Last Admin Dose Admin Chlorhexidine Gluconate (Gwendolyn-Hex 2%) 1 applic DAILY@2000 TOPIC 06/18/19 20:00 07/18/19 19:59 06/19/19 20:29 Dextrose (Dextrose 50%) 25 ml Q30M PRN IV Hypoglycemia 06/17/19 08:00 07/17/19 07:59 Dextrose (Dextrose 50%) 50 ml Q30M PRN IV Hypoglycemia 06/17/19 08:00 07/17/19 07:59 Dextrose/Sodium Chloride 1,000 ml @ 25 mls/hr Q24H IV 06/19/19 15:00 07/19/19 14:59 06/19/19 14:50 Insulin Aspart (NovoLOG) BEFORE MEALS AND HS SUBQ 06/17/19 11:30 07/17/19 11:29 06/20/19 11:53 Levetiracetam (Keppra) 1,000 mg Q12HR GT 06/19/19 21:00 07/19/19 20:59 06/20/19 08:56 Lorazepam (Ativan 2mg/ml 1ml) 1 mg Q2H PRN IV For Seizures 06/19/19 14:45 06/26/19 14:44 06/19/19 20:43 Norepinephrine Bitartrate 4 mg/ Dextrose 250 ml @ 0 mls/hr Q24H IV 06/17/19 20:30 07/17/19 20:29 06/20/19 02:41 Pantoprazole (Protonix) 40 mg DAILY IVP 06/18/19 17:30 07/18/19 17:29 06/20/19 08:56 Piperacillin Sod/ Tazobactam Sod 3.375 gm/Sodium Chloride 110 ml @ 27.5 mls/hr 0230,1030,1830 IVPB 06/17/19 02:30 06/24/19 02:29 06/20/19 09:48 Vancomycin HCl (Vanco rx to dose) 1 ea DAILY PRN MISC Per rx protocol 06/16/19 20:15 07/16/19 20:14 Vancomycin/Sodium Chloride 275 ml @ 137.5 mls/ hr Q24H IVPB 06/17/19 21:00 06/22/19 20:59 06/19/19 21:48 Carlos Amaro MD Jun 20, 2019 13:13
[2019-06-20] MEDS: cefTRIAXone 1 GM in D5W 55 ML IVPB SCH (14:36)
[2019-06-20] MEDS: D5NS 1,000 ML IV SCH (14:37)
--- NOTE | 2019-06-20 15:40 | Surgery Progress Note ---
Surgery Progress Note Subjective Additional Comments leukocytosis 19k today labs noted exam stable on fluids and abx vent support Objective Last 24 Hour Vital Signs Date Time Temp Pulse Resp B/P (MAP) Pulse Ox O2 Delivery O2 Flow Rate FiO2 06/20/19 15:19 81 38 70 06/20/19 15:00 84 36 113/75 92 Mechanical Ventilator 06/20/19 14:15 81 36 127/67 93 Mechanical Ventilator 06/20/19 14:00 86 31 125/73 89 Mechanical Ventilator 06/20/19 14:00 127/67 06/20/19 13:45 82 36 124/81 93 Mechanical Ventilator 06/20/19 13:30 83 35 122/71 93 Mechanical Ventilator 06/20/19 13:15 84 35 127/79 93 Mechanical Ventilator 70 06/20/19 13:06 81 36 70 06/20/19 13:00 84 40 129/82 92 Mechanical Ventilator 70 06/20/19 13:00 129/82 06/20/19 12:00 97.2 83 37 127/92 95 Mechanical Ventilator 70 06/20/19 12:00 130/76 06/20/19 12:00 70 06/20/19 11:39 81 06/20/19 11:30 82 36 123/74 95 Mechanical Ventilator 70 06/20/19 11:00 86 39 113/72 94 Mechanical Ventilator 70 06/20/19 11:00 123/74 06/20/19 10:34 92 33 70 06/20/19 10:00 77 33 112/66 95 Mechanical Ventilator 70 06/20/19 10:00 112/66 06/20/19 09:00 84 37 111/70 95 Mechanical Ventilator 70 06/20/19 09:00 111/70 06/20/19 08:57 92 39 70 06/20/19 08:45 94 34 116/67 91 Mechanical Ventilator 70 06/20/19 08:30 79 36 116/67 96 Mechanical Ventilator 70 06/20/19 08:15 79 34 119/66 96 Mechanical Ventilator 70 06/20/19 08:00 121/70 06/20/19 08:00 97.8 78 35 121/70 95 Mechanical Ventilator 70 06/20/19 07:32 73 06/20/19 07:20 85 30 70 06/20/19 07:00 78 34 127/77 96 Mechanical Ventilator 80 06/20/19 07:00 127/77 10/11/19 06:00 146/81 06/20/19 06:00 87 34 129/72 97 Mechanical Ventilator 80 06/20/19 05:18 70 06/20/19 05:09 75 32 70 06/20/19 05:00 75 34 130/91 100 Mechanical Ventilator 80 06/20/19 05:00 137/76 06/20/19 04:00 Mechanical Ventilator 06/20/19 04:00 140/79 06/20/19 04:00 98.0 88 32 148/79 100 Mechanical Ventilator 80 06/20/19 04:00 89 06/20/19 04:00 80 06/20/19 03:45 100 37 152/104 91 Mechanical Ventilator 80 06/20/19 03:30 90 33 144/35 91 Mechanical Ventilator 80 06/20/19 03:15 91 36 137/41 93 Mechanical Ventilator 80 06/20/19 03:02 92 35 80 06/20/19 03:00 91 33 139/40 95 Mechanical Ventilator 80 06/20/19 03:00 137/41 06/20/19 02:45 90 33 145/38 95 Mechanical Ventilator 80 06/20/19 02:41 108/27 06/20/19 02:40 145/38 06/20/19 02:30 97 31 108/27 93 Mechanical Ventilator 80 06/20/19 02:15 95 31 138/34 91 Mechanical Ventilator 80 06/20/19 02:00 138/34 06/20/19 02:00 94 32 133/36 95 Mechanical Ventilator 80 06/20/19 01:45 92 32 131/31 95 Mechanical Ventilator 100 06/20/19 01:30 93 31 126/44 93 Mechanical Ventilator 100 06/20/19 01:17 94 39 80 06/20/19 01:15 78 35 136/35 100 Mechanical Ventilator 100 06/20/19 01:00 91 34 143/37 94 Mechanical Ventilator 100 06/20/19 01:00 136/35 06/20/19 00:45 87 31 139/48 100 Mechanical Ventilator 100 06/20/19 00:30 90 32 132/30 100 Mechanical Ventilator 100 06/20/19 00:00 Mechanical Ventilator 06/20/19 00:00 134/54 06/20/19 00:00 100 06/20/19 00:00 98.0 88 33 134/54 99 Mechanical Ventilator 100 06/20/19 00:00 82 06/19/19 23:24 90 33 100 06/19/19 23:00 131/45 06/19/19 23:00 84 32 131/45 99 Mechanical Ventilator 100 06/19/19 22:30 88 33 133/40 99 Mechanical Ventilator 100 06/19/19 22:00 72 32 125/37 100 Mechanical Ventilator 100 06/19/19 22:00 125/37 06/19/19 21:30 79 32 130/35 100 Mechanical Ventilator 100 06/19/19 21:00 85 32 126/35 100 Mechanical Ventilator 100 06/19/19 21:00 126/35 06/19/19 20:48 88 36 100 06/19/19 20:30 73 36 121/32 99 Mechanical Ventilator 100 06/19/19 20:18 100/28 06/19/19 20:00 68 06/19/19 20:00 98.0 70 32 129/39 96 Mechanical Ventilator 70 06/19/19 20:00 Mechanical Ventilator 06/19/19 20:00 100 06/19/19 19:30 70 32 129/39 96 Mechanical Ventilator 70 06/19/19 19:15 54 34 100 06/19/19 19:00 65 30 76/28 89 Mechanical Ventilator 60 06/19/19 19:00 83/40 06/19/19 18:50 85/48 06/19/19 18:00 71 34 96/59 99 Mechanical Ventilator 60 06/19/19 17:00 84 32 105/58 99 Mechanical Ventilator 60 06/19/19 16:42 86 32 60 06/19/19 16:00 98.5 81 32 117/61 97 Mechanical Ventilator 60 06/19/19 16:00 85 06/19/19 16:00 60 I&O Intake and Output 06/19/19 06/20/19 19:00 07:00 Intake Total 1010.82 ml 1150.62 ml Output Total 450 ml 810 ml Balance 560.82 ml 340.62 ml Free Water 30 ml IV Total 730.82 ml 1150.62 ml Blood Product 250 ml Output Urine Total 450 ml 810 ml # Bowel Movements 3 Dressing: saturated Wound: clean Cardiovascular: RSR Respiratory: clear Abdomen: soft, decreased bowel sounds Extremities: no cyanosis Laboratory Tests Test 06/19/19 20:06/20/19 04:20 Vancomycin Level Trough 15.6 ug/mL (5.0-12.0) H White Blood Count 19.6 K/UL (4.8-10.8) #H Red Blood Count 3.08 M/UL (4.70-6.10) L Hemoglobin 8.8 G/DL (14.2-18.0) L Hematocrit 27.2 % (42.0-52.0) L Mean Corpuscular Volume 88 FL (80-99) Mean Corpuscular Hemoglobin 28.8 PG (27.0-31.0) Mean Corpuscular Hemoglobin Concent 32.6 G/DL (32.0-36.0) Red Cell Distribution Width 16.6 % (11.6-14.8) H Platelet Count 71 K/UL (150-450) L Mean Platelet Volume 7.7 FL (6.5-10.1) Neutrophils (%) (Auto) % (45.0-75.0) Lymphocytes (%) (Auto) % (20.0-45.0) Monocytes (%) (Auto) % (1.0-10.0) Eosinophils (%) (Auto) % (0.0-3.0) Basophils (%) (Auto) % (0.0-2.0) Differential Total Cells Counted 100 Neutrophils % (Manual) 82 % (45-75) H Lymphocytes % (Manual) 11 % (20-45) L Monocytes % (Manual) 6 % (1-10) Eosinophils % (Manual) 0 % (0-3) Basophils % (Manual) 0 % (0-2) Band Neutrophils 1 % (0-8) Nucleated Red Blood Cells 3 /100 WBC Platelet Estimate Decreased L Platelet Morphology Normal Hypochromasia 2+ Anisocytosis 1+ Spherocytes 1+ Sodium Level 138 MMOL/L (136-145) Potassium Level 4.5 MMOL/L (3.5-5.1) Chloride Level 109 MMOL/L (98-107) H Carbon Dioxide Level 21 MMOL/L (21-32) Anion Gap 8 mmol/L (5-15) Blood Urea Nitrogen 16 mg/dL (7-18) Creatinine 1.0 MG/DL (0.55-1.30) Estimat Glomerular Filtration Rate mL/min (>60) Glucose Level 184 MG/DL (74-106) H Calcium Level 8.6 MG/DL (8.5-10.1) Total Bilirubin 0.4 MG/DL (0.2-1.0) Aspartate Amino Transf (AST/SGOT) 24 U/L (15-37) Alanine Aminotransferase (ALT/SGPT) 25 U/L (12-78) Alkaline Phosphatase 163 U/L (46-116) H Total Protein 7.3 G/DL (6.4-8.2) Albumin 1.8 G/DL (3.4-5.0) L Globulin 5.5 g/dL Albumin/Globulin Ratio 0.3 (1.0-2.7) L Plan Problems: (1) Leukocytosis (2) Decubitus skin ulcer Assessment & Plan: Pt presented on admission with multiple pressure injuries. Resolving pressure injury posterior neck under collar of trach. Base of wound has mostly pink epithelial with scattered small partial thickness wounds (L)2cm x (W)1.6cm. Tracheal stoma noted to have denuded area R side of stoma.. Resolving full thickness sacral pressure injury L sacrum (L)2.5cm x (W)1cm x (D) 0.2cm.[place] granulation at base of wound . Inferior but in close proximity to L sacral wound ,pt noted to have darker skin tone with scattered areas that are fluctuant and partially opened with small amt of sanguineous exudate noted (L) 9cm x (W)11.5cm. Resolving pressure injury noted to base of scrotum . Base of wound pink and dry (L)1cm x (W)0.8cm. Unstageable pressure injury noted to R heel extending into plantar aspect of R heel.At plantar aspect of heel soft necrosis noted that is oozing small amt brown purulent exudate(L)3cm x (W)3.5cm. Surrounding the area of necrosis, wound is black with fluctuance and marginal erythema along edges. Wound is malodorous.(L)8cm x (W)9.5cm. L heel is boggy with non-blanching erythema. Tx.Plan: Apply Cavilon Skin Barrier to posterior neck. Cover with Optifoam drsg. Change every 3 days and prn. Apply Moisture Barrier Paste to sacrum. Cover with Optifoam drsg. Change every 3days and prn. Apply Moisture Barrier Paste to Scrotum with each incontinence care. Apply Betadine to R heel . Cover with ABD pad and wrap with kerlix Daily and prn. Apply Cavilon Skin Barrier to R heel. Cover with Optifoam drsg. Change every 7 days and prn. APM/LARISSA Mattress overlay. Reposition at least every 2hours or as tolerated. Off-load heels with pillow. (3) Severe sepsis Assessment & Plan: Leukocytosis, lactic acidosis, hyperkalemia, hyponatremia. Severe sepsis Fluid resuscitation IV antibiotics as per infectious disease Trend labs Wound care as above We will follow with recommendations Thank you for this consultation Abdoul Lucas Jun 20, 2019 15:40
--- NOTE | 2019-06-20 16:09 | Critical Care Progress Note ---
Assessment/Plan Assessment/Plan chronic respiratory failure multifocal pneumonia hypoxemia sepsis leukocytosis hyponatremia ARF trach GT severe PCM chronic encephalopathy possible colitis PLAN renal and ID evaluation noted vent support as is monitor acid base iv antibiotics and cultures noted ICU care critical hydration with caution monitor imaging monitor cultures off load all care reviewed in detail monitor for seizures close follow up of all parameters continue to optimize medications/laboratory data/nursing notes/ICU care reviewed in detail note reviewed and edited care discussed with RN and RT ICU time spent 42 minutes Critical Care - Subjective Interval Events: care noted and reviewed monitor as is doing poorly obtunded ROS Limited/Unobtainable: Yes Condition: critical EKG Rhythm: Sinus Rhythm Residuals: minimal Tube Feeding Tolerated: yes I&O: Intake and Output 06/19/19 06/20/19 19:00 07:00 Intake Total 1010.82 ml 1150.62 ml Output Total 450 ml 810 ml Balance 560.82 ml 340.62 ml Free Water 30 ml IV Total 730.82 ml 1150.62 ml Blood Product 250 ml Output Urine Total 450 ml 810 ml # Bowel Movements 3 Critical Care - Objective CXR: noted infiltrates Last 24 Hour Vital Signs Date Time Temp Pulse Resp B/P (MAP) Pulse Ox O2 Delivery O2 Flow Rate FiO2 06/20/19 15:19 81 38 70 06/20/19 15:00 84 36 113/75 92 Mechanical Ventilator 06/20/19 14:15 81 36 127/67 93 Mechanical Ventilator 06/20/19 14:00 86 31 125/73 89 Mechanical Ventilator 06/20/19 14:00 127/67 06/20/19 13:45 82 36 124/81 93 Mechanical Ventilator 06/20/19 13:30 83 35 122/71 93 Mechanical Ventilator 06/20/19 13:15 84 35 127/79 93 Mechanical Ventilator 70 06/20/19 13:06 81 36 70 06/20/19 13:00 84 40 129/82 92 Mechanical Ventilator 70 06/20/19 13:00 129/82 06/20/19 12:00 97.2 83 37 127/92 95 Mechanical Ventilator 70 06/20/19 12:00 130/76 06/20/19 12:00 70 06/20/19 11:39 81 06/20/19 11:30 82 36 123/74 95 Mechanical Ventilator 70 06/20/19 11:00 86 39 113/72 94 Mechanical Ventilator 70 06/20/19 11:00 123/74 06/20/19 10:34 92 33 70 06/20/19 10:00 77 33 112/66 95 Mechanical Ventilator 70 06/20/19 10:00 112/66 06/20/19 09:00 84 37 111/70 95 Mechanical Ventilator 70 06/20/19 09:00 111/70 06/20/19 08:57 92 39 70 06/20/19 08:45 94 34 116/67 91 Mechanical Ventilator 70 06/20/19 08:30 79 36 116/67 96 Mechanical Ventilator 70 06/20/19 08:15 79 34 119/66 96 Mechanical Ventilator 70 06/20/19 08:00 121/70 06/20/19 08:00 97.8 78 35 121/70 95 Mechanical Ventilator 70 06/20/19 07:32 73 06/20/19 07:20 85 30 70 06/20/19 07:00 78 34 127/77 96 Mechanical Ventilator 80 06/20/19 07:00 127/77 06/20/19 06:00 146/81 06/20/19 06:00 87 34 129/72 97 Mechanical Ventilator 80 06/20/19 05:18 70 06/20/19 05:09 75 32 70 06/20/19 05:00 75 34 130/91 100 Mechanical Ventilator 80 06/20/19 05:00 137/76 06/20/19 04:00 Mechanical Ventilator 06/20/19 04:00 140/79 06/20/19 04:00 98.0 88 32 148/79 100 Mechanical Ventilator 80 06/20/19 04:00 89 06/20/19 04:00 80 06/20/19 03:45 100 37 152/104 91 Mechanical Ventilator 80 06/20/19 03:30 90 33 144/35 91 Mechanical Ventilator 80 06/20/19 03:15 91 36 137/41 93 Mechanical Ventilator 80 06/20/19 03:02 92 35 80 06/20/19 03:00 91 33 139/40 95 Mechanical Ventilator 80 06/20/19 03:00 137/41 06/20/19 02:45 90 33 145/38 95 Mechanical Ventilator 80 06/20/19 02:41 108/27 06/20/19 02:40 145/38 06/20/19 02:30 97 31 108/27 93 Mechanical Ventilator 80 06/20/19 02:15 95 31 138/34 91 Mechanical Ventilator 80 06/20/19 02:00 138/34 06/20/19 02:00 94 32 133/36 95 Mechanical Ventilator 80 06/20/19 01:45 92 32 131/31 95 Mechanical Ventilator 100 06/20/19 01:30 93 31 126/44 93 Mechanical Ventilator 100 06/20/19 01:17 94 39 80 06/20/19 01:15 78 35 136/35 100 Mechanical Ventilator 100 06/20/19 01:00 91 34 143/37 94 Mechanical Ventilator 100 06/20/19 01:00 136/35 06/20/19 00:45 87 31 139/48 100 Mechanical Ventilator 100 06/20/19 00:30 90 32 132/30 100 Mechanical Ventilator 100 06/20/19 00:00 Mechanical Ventilator 06/20/19 00:00 134/54 06/20/19 00:00 100 06/20/19 00:00 98.0 88 33 134/54 99 Mechanical Ventilator 100 06/20/19 00:00 82 06/19/19 23:24 90 33 100 06/19/19 23:00 131/45 06/19/19 23:00 84 32 131/45 99 Mechanical Ventilator 100 06/19/19 22:30 88 33 133/40 99 Mechanical Ventilator 100 06/19/19 22:00 72 32 125/37 100 Mechanical Ventilator 100 06/19/19 22:00 125/37 06/19/19 21:30 79 32 130/35 100 Mechanical Ventilator 100 06/19/19 21:00 85 32 126/35 100 Mechanical Ventilator 100 06/19/19 21:00 126/35 06/19/19 20:48 88 36 100 06/19/19 20:30 73 36 121/32 99 Mechanical Ventilator 100 06/19/19 20:18 100/28 06/19/19 20:00 68 06/19/19 20:00 98.0 70 32 129/39 96 Mechanical Ventilator 70 06/19/19 20:00 Mechanical Ventilator 06/19/19 20:00 100 06/19/19 19:30 70 32 129/39 96 Mechanical Ventilator 70 06/19/19 19:15 54 34 100 06/19/19 19:00 65 30 76/28 89 Mechanical Ventilator 60 06/19/19 19:00 83/40 06/19/19 18:50 85/48 06/19/19 18:00 71 34 96/59 99 Mechanical Ventilator 60 06/19/19 17:00 84 32 105/58 99 Mechanical Ventilator 60 06/19/19 16:42 86 32 60 Labs: Labs Test 06/17/19 17:45 06/18/19 05:24 06/18/19 10:00 06/19/19 04:30 Sodium Level 123 MMOL/L (136-145) 128 MMOL/L (136-145) 133 MMOL/L (136-145) Potassium Level 5.7 MMOL/L (3.5-5.1) 5.0 MMOL/L (3.5-5.1) 4.9 MMOL/L (3.5-5.1) Chloride Level 96 MMOL/L (98-107) 102 MMOL/L (98-107) 105 MMOL/L (98-107) Carbon Dioxide Level 22 MMOL/L (21-32) 19 MMOL/L (21-32) 22 MMOL/L (21-32) Anion Gap 6 mmol/L (5-15) 7 mmol/L (5-15) 6 mmol/L (5-15) Blood Urea Nitrogen 41 mg/dL (7-18) 27 mg/dL (7-18) 12 mg/dL (7-18) Creatinine 1.0 MG/DL (0.55-1.30) 0.9 MG/DL (0.55-1.30) 0.9 MG/DL (0.55-1.30) Estimat Glomerular Filtration Rate mL/min (>60) mL/min (>60) mL/min (>60) Glucose Level 173 MG/DL (74-106) 200 MG/DL (74-106) 129 MG/DL (74-106) Calcium Level 8.0 MG/DL (8.5-10.1) 8.0 MG/DL (8.5-10.1) 8.7 MG/DL (8.5-10.1) Total Bilirubin 0.4 MG/DL (0.2-1.0) 0.4 MG/DL (0.2-1.0) 0.5 MG/DL (0.2-1.0) Aspartate Amino Transf (AST/SGOT) 32 U/L (15-37) 39 U/L (15-37) 28 U/L (15-37) Alanine Aminotransferase (ALT/SGPT) 27 U/L (12-78) 27 U/L (12-78) 26 U/L (12-78) Alkaline Phosphatase 129 U/L (46-116) 120 U/L (46-116) 139 U/L (46-116) Total Protein 6.8 G/DL (6.4-8.2) 6.5 G/DL (6.4-8.2) 7.4 G/DL (6.4-8.2) Albumin 1.4 G/DL (3.4-5.0) 1.3 G/DL (3.4-5.0) 1.9 G/DL (3.4-5.0) Globulin 5.4 g/dL 5.2 g/dL 5.5 g/dL Albumin/Globulin Ratio 0.3 (1.0-2.7) 0.2 (1.0-2.7) 0.3 (1.0-2.7) White Blood Count 11.3 K/UL (4.8-10.8) 11.2 K/UL (4.8-10.8) Red Blood Count 2.67 M/UL (4.70-6.10) 2.62 M/UL (4.70-6.10) Hemoglobin 7.9 G/DL (14.2-18.0) 7.7 G/DL (14.2-18.0) Hematocrit 23.6 % (42.0-52.0) 23.4 % (42.0-52.0) Mean Corpuscular Volume 89 FL (80-99) 90 FL (80-99) Mean Corpuscular Hemoglobin 29.5 PG (27.0-31.0) 29.4 PG (27.0-31.0) Mean Corpuscular Hemoglobin Concent 33.3 G/DL (32.0-36.0) 32.9 G/DL (32.0-36.0) Red Cell Distribution Width 15.5 % (11.6-14.8) 16.0 % (11.6-14.8) Platelet Count 61 K/UL (150-450) 58 K/UL (150-450) Mean Platelet Volume 9.1 FL (6.5-10.1) 7.9 FL (6.5-10.1) Neutrophils (%) (Auto) % (45.0-75.0) % (45.0-75.0) Lymphocytes (%) (Auto) % (20.0-45.0) % (20.0-45.0) Monocytes (%) (Auto) % (1.0-10.0) % (1.0-10.0) Eosinophils (%) (Auto) % (0.0-3.0) % (0.0-3.0) Basophils (%) (Auto) % (0.0-2.0) % (0.0-2.0) Differential Total Cells Counted 100 100 Neutrophils % (Manual) 73 % (45-75) 87 % (45-75) Lymphocytes % (Manual) 17 % (20-45) 8 % (20-45) Monocytes % (Manual) 10 % (1-10) 3 % (1-10) Eosinophils % (Manual) 0 % (0-3) 0 % (0-3) Basophils % (Manual) 0 % (0-2) 0 % (0-2) Band Neutrophils 0 % (0-8) 2 % (0-8) Nucleated Red Blood Cells 2 /100 WBC 3 /100 WBC Platelet Estimate Decreased Decreased Platelet Morphology Normal Normal Hypochromasia 3+ Anisocytosis 1+ Stool Occult Blood Positive (NEGATIVE) Test 06/19/19 20:25 06/20/19 04:20 Vancomycin Level Trough 15.6 ug/mL (5.0-12.0) White Blood Count 19.6 K/UL (4.8-10.8) Red Blood Count 3.08 M/UL (4.70-6.10) Hemoglobin 8.8 G/DL (14.2-18.0) Hematocrit 27.2 % (42.0-52.0) Mean Corpuscular Volume 88 FL (80-99) Mean Corpuscular Hemoglobin 28.8 PG (27.0-31.0) Mean Corpuscular Hemoglobin Concent 32.6 G/DL (32.0-36.0) Red Cell Distribution Width 16.6 % (11.6-14.8) Platelet Count 71 K/UL (150-450) Mean Platelet Volume 7.7 FL (6.5-10.1) Neutrophils (%) (Auto) % (45.0-75.0) Lymphocytes (%) (Auto) % (20.0-45.0) Monocytes (%) (Auto) % (1.0-10.0) Eosinophils (%) (Auto) % (0.0-3.0) Basophils (%) (Auto) % (0.0-2.0) Differential Total Cells Counted 100 Neutrophils % (Manual) 82 % (45-75) Lymphocytes % (Manual) 11 % (20-45) Monocytes % (Manual) 6 % (1-10) Eosinophils % (Manual) 0 % (0-3) Basophils % (Manual) 0 % (0-2) Band Neutrophils 1 % (0-8) Nucleated Red Blood Cells 3 /100 WBC Platelet Estimate Decreased Platelet Morphology Normal Hypochromasia 2+ Anisocytosis 1+ Spherocytes 1+ Sodium Level 138 MMOL/L (136-145) Potassium Level 4.5 MMOL/L (3.5-5.1) Chloride Level 109 MMOL/L (98-107) Carbon Dioxide Level 21 MMOL/L (21-32) Anion Gap 8 mmol/L (5-15) Blood Urea Nitrogen 16 mg/dL (7-18) Creatinine 1.0 MG/DL (0.55-1.30) Estimat Glomerular Filtration Rate mL/min (>60) Glucose Level 184 MG/DL (74-106) Calcium Level 8.6 MG/DL (8.5-10.1) Total Bilirubin 0.4 MG/DL (0.2-1.0) Aspartate Amino Transf (AST/SGOT) 24 U/L (15-37) Alanine Aminotransferase (ALT/SGPT) 25 U/L (12-78) Alkaline Phosphatase 163 U/L (46-116) Total Protein 7.3 G/DL (6.4-8.2) Albumin 1.8 G/DL (3.4-5.0) Globulin 5.5 g/dL Albumin/Globulin Ratio 0.3 (1.0-2.7) Objective: WDWN trach and vent noted anasarca reduced breath sounds bilaterally with scattered rhonchi [id number] without MRG NABS nontender no HSM; GT; no distention no CCE nonfocal poor LOC skin exam reviewed reviewed and examined Accucheck: 184 Bakari Montanez MD Jun 20, 2019 16:09
--- NOTE | 2019-06-20 16:22 | General Progress Note ---
Assessment/Plan Problem List: (1) GIB (gastrointestinal bleeding) ICD Codes: K92.2 - Gastrointestinal hemorrhage, unspecified SNOMED: 75312930 (2) Anemia ICD Codes: D64.9 - Anemia, unspecified SNOMED: 713533637 Qualifiers: Qualified Codes: D64.9 - Anemia, unspecified (3) Hyponatremia ICD Codes: E87.1 - Hypo-osmolality and hyponatremia SNOMED: 64362864 (4) Renal insufficiency ICD Codes: N28.9 - Disorder of kidney and ureter, unspecified; R65.20 - Severe sepsis without septic shock SNOMED: 532873480, 598639661 (5) Pneumonia ICD Codes: J18.9 - Pneumonia, unspecified organism SNOMED: 583784279, 350260939 Qualifiers: Qualified Codes: J18.9 - Pneumonia, unspecified organism (6) Severe sepsis ICD Codes: A41.9 - Sepsis, unspecified organism; R65.20 - Severe sepsis without septic shock SNOMED: 98019297 (7) Decubitus skin ulcer ICD Codes: L89.90 - Pressure ulcer of unspecified site, unspecified stage SNOMED: 185462725 (8) Leukocytosis ICD Codes: D72.829 - Elevated white blood cell count, unspecified SNOMED: 608876994, 886556166 (9) Hyperglycemia ICD Codes: R73.9 - Hyperglycemia, unspecified SNOMED: 29928675 (10) Hypothermia ICD Codes: T68.XXXA - Hypothermia, initial encounter SNOMED: 984808407 Qualifiers: Qualified Codes: T68.XXXA - Hypothermia, initial encounter Status: stable, unchanged Assessment/Plan: cont current rx monitor off pressors ivf iv abx per id follow up cultures PPI rx GI eval vent support resp rx poor prognosis Subjective ROS Limited/Unobtainable: Yes Constitutional: Reports: no symptoms HEENT: Reports: no symptoms Cardiovascular: Reports: edema Respiratory: Reports: shortness of breath Gastrointestinal/Abdominal: Reports: tarry stools, difficulty swallowing Genitourinary: Reports: no symptoms Neurologic/Psychiatric: Reports: pre-existing deficit, seizure Endocrine: Reports: no symptoms Hematologic/Lymphatic: Reports: anemia Allergies: Coded Allergies: No Known Allergies (Unverified , 07/04/18) All Systems: reviewed and negative except above Subjective off pressors. labs improving. on the vent. +facial twitching. EEG negative for szs. on abx. +dark stools. OB + Objective Last 24 Hour Vital Signs Date Time Temp Pulse Resp B/P (MAP) Pulse Ox O2 Delivery O2 Flow Rate FiO2 06/20/19 16:00 Mechanical Ventilator 06/20/19 15:19 81 38 70 06/20/19 15:00 84 36 113/75 92 Mechanical Ventilator 06/20/19 14:15 81 36 127/67 93 Mechanical Ventilator 06/20/19 14:00 86 31 125/73 89 Mechanical Ventilator 06/20/19 14:00 127/67 06/20/19 13:45 82 36 124/81 93 Mechanical Ventilator 06/20/19 13:30 83 35 122/71 93 Mechanical Ventilator 06/20/19 13:15 84 35 127/79 93 Mechanical Ventilator 70 06/20/19 13:06 81 36 70 06/20/19 13:00 84 40 129/82 92 Mechanical Ventilator 70 06/20/19 13:00 129/82 06/20/19 12:00 97.2 83 37 127/92 95 Mechanical Ventilator 70 06/20/19 12:00 Mechanical Ventilator 06/20/19 12:00 130/76 06/20/19 12:00 70 06/20/19 11:39 81 06/20/19 11:30 82 36 123/74 95 Mechanical Ventilator 70 06/20/19 11:00 86 39 113/72 94 Mechanical Ventilator 70 06/20/19 11:00 123/74 06/20/19 10:34 92 33 70 06/20/19 10:00 77 33 112/66 95 Mechanical Ventilator 70 06/20/19 10:00 112/66 06/20/19 09:00 84 37 111/70 95 Mechanical Ventilator 70 06/20/19 09:00 111/70 06/20/19 08:57 92 39 70 06/20/19 08:45 94 34 116/67 91 Mechanical Ventilator 70 06/20/19 08:30 79 36 116/67 96 Mechanical Ventilator 70 06/20/19 08:15 79 34 119/66 96 Mechanical Ventilator 70 06/20/19 08:00 121/70 06/20/19 08:00 Mechanical Ventilator 06/20/19 08:00 97.8 78 35 121/70 95 Mechanical Ventilator 70 06/20/19 07:32 73 10/11/19 07:20 85 30 70 06/20/19 07:00 78 34 127/77 96 Mechanical Ventilator 80 06/20/19 07:00 127/77 06/20/19 06:00 146/81 06/20/19 06:00 87 34 129/72 97 Mechanical Ventilator 80 06/20/19 05:18 70 06/20/19 05:09 75 32 70 06/20/19 05:00 75 34 130/91 100 Mechanical Ventilator 80 06/20/19 05:00 137/76 06/20/19 04:00 Mechanical Ventilator 06/20/19 04:00 140/79 06/20/19 04:00 98.0 88 32 148/79 100 Mechanical Ventilator 80 06/20/19 04:00 89 06/20/19 04:00 80 06/20/19 03:45 100 37 152/104 91 Mechanical Ventilator 80 06/20/19 03:30 90 33 144/35 91 Mechanical Ventilator 80 06/20/19 03:15 91 36 137/41 93 Mechanical Ventilator 80 06/20/19 03:02 92 35 80 06/20/19 03:00 91 33 139/40 95 Mechanical Ventilator 80 06/20/19 03:00 137/41 06/20/19 02:45 90 33 145/38 95 Mechanical Ventilator 80 06/20/19 02:41 108/27 06/20/19 02:40 145/38 06/20/19 02:30 97 31 108/27 93 Mechanical Ventilator 80 06/20/19 02:15 95 31 138/34 91 Mechanical Ventilator 80 06/20/19 02:00 138/34 06/20/19 02:00 94 32 133/36 95 Mechanical Ventilator 80 06/20/19 01:45 92 32 131/31 95 Mechanical Ventilator 100 06/20/19 01:30 93 31 126/44 93 Mechanical Ventilator 100 06/20/19 01:17 94 39 80 06/20/19 01:15 78 35 136/35 100 Mechanical Ventilator 100 06/20/19 01:00 91 34 143/37 94 Mechanical Ventilator 100 06/20/19 01:00 136/35 06/20/19 00:45 87 31 139/48 100 Mechanical Ventilator 100 06/20/19 00:30 90 32 132/30 100 Mechanical Ventilator 100 06/20/19 00:00 Mechanical Ventilator 06/20/19 00:00 134/54 06/20/19 00:00 100 06/20/19 00:00 98.0 88 33 134/54 99 Mechanical Ventilator 100 06/20/19 00:00 82 06/19/19 23:24 90 33 100 06/19/19 23:00 131/45 06/19/19 23:00 84 32 131/45 99 Mechanical Ventilator 100 06/19/19 22:30 88 33 133/40 99 Mechanical Ventilator 100 06/19/19 22:00 72 32 125/37 100 Mechanical Ventilator 100 06/19/19 22:00 125/37 06/19/19 21:30 79 32 130/35 100 Mechanical Ventilator 100 06/19/19 21:00 85 32 126/35 100 Mechanical Ventilator 100 06/19/19 21:00 126/35 06/19/19 20:48 88 36 100 06/19/19 20:30 73 36 121/32 99 Mechanical Ventilator 100 06/19/19 20:18 100/28 06/19/19 20:00 68 06/19/19 20:00 98.0 70 32 129/39 96 Mechanical Ventilator 70 06/19/19 20:00 Mechanical Ventilator 06/19/19 20:00 100 06/19/19 19:30 70 32 129/39 96 Mechanical Ventilator 70 06/19/19 19:15 54 34 100 06/19/19 19:00 65 30 76/28 89 Mechanical Ventilator 60 06/19/19 19:00 83/40 06/19/19 18:50 85/48 06/19/19 18:00 71 34 96/59 99 Mechanical Ventilator 60 06/19/19 17:00 84 32 105/58 99 Mechanical Ventilator 60 06/19/19 16:42 86 32 60 Intake and Output 06/19/19 06/20/19 19:00 07:00 Intake Total 1010.82 ml 1150.62 ml Output Total 450 ml 810 ml Balance 560.82 ml 340.62 ml Free Water 30 ml IV Total 730.82 ml 1150.62 ml Blood Product 250 ml Output Urine Total 450 ml 810 ml # Bowel Movements 3 Laboratory Tests 06/19/19 20:25: Vancomycin Level Trough 15.6H 06/20/19 04:20: White Blood Count 19.6#H, Red Blood Count 3.08L, Hemoglobin 8.8L, Hematocrit 27.2L, Mean Corpuscular Volume 88, Mean Corpuscular Hemoglobin 28.8, Mean Corpuscular Hemoglobin Concent 32.6, Red Cell Distribution Width 16.6H, Platelet Count 71L, Mean Platelet Volume 7.7, Neutrophils (%) (Auto) , Lymphocytes (%) (Auto) , Monocytes (%) (Auto) , Eosinophils (%) (Auto) , Basophils (%) (Auto) , Differential Total Cells Counted 100, Neutrophils % ( Manual) 82H, Lymphocytes % (Manual) 11L, Monocytes % (Manual) 6, Eosinophils % ( Manual) 0, Basophils % (Manual) 0, Band Neutrophils 1, Nucleated Red Blood Cells 3, Platelet Estimate DecreasedL, Platelet Morphology Normal, Hypochromasia 2+, Anisocytosis 1+, Spherocytes 1+, Sodium Level 138, Potassium Level 4.5, Chloride Level 109H, Carbon Dioxide Level 21, Anion Gap 8, Blood Urea Nitrogen 16, Creatinine 1.0, Estimat Glomerular Filtration Rate , Glucose Level 184H, Calcium Level 8.6, Total Bilirubin 0.4, Aspartate Amino Transf (AST/ SGOT) 24, Alanine Aminotransferase (ALT/SGPT) 25, Alkaline Phosphatase 163H, Total Protein 7.3, Albumin 1.8L, Globulin 5.5, Albumin/Globulin Ratio 0.3L Height (Feet): 5 Height (Inches): 8.00 Weight (Pounds): 209 Objective cont current rx pressors as needed albumin and ivf as needed iv abx per id follow up cultures PPI rx GI eval vent support resp rx poor prognosis Chano Galeana MD Jun 20, 2019 16:22
[2019-06-20] MEDS: Dyna-Hex 2% Top Sol 2oz TOPIC SCH (20:20)
--- NOTE | 2019-06-20 23:03 | General Progress Note ---
Assessment/Plan Status: stable, unchanged Assessment/Plan: GI Consult Assessment - Melena/heme (+) stools (none today) - Anemia - Chronic liver disease with thrombocytopenia, possibly portal HTN - Resp failure - s/p trach - dysphagia - s/p PEG - Anoxic encephalopathy, non communicative - bed bound, contracted - poor Px Recommendations - hold feeds - check hepatitis serologies - agree with PPI - Sandostatin gtt - monitor CBC - discuss with family - Endoscopy once consent obtained Thank you Manolo Okeefe MD Subjective Allergies: Coded Allergies: No Known Allergies (Unverified , 07/04/18) Objective Last 24 Hour Vital Signs Date Time Temp Pulse Resp B/P (MAP) Pulse Ox O2 Delivery O2 Flow Rate FiO2 06/20/19 21:00 83 31 122/68 94 Mechanical Ventilator 06/20/19 20:56 84 32 70 06/20/19 20:00 70 06/20/19 20:00 98.0 85 31 114/71 94 Mechanical Ventilator 06/20/19 19:31 87 34 70 06/20/19 19:00 83 29 116/72 94 Mechanical Ventilator 06/20/19 18:00 85 30 116/76 93 Mechanical Ventilator 93 06/20/19 17:19 82 31 70 06/20/19 17:00 83 34 124/75 93 Mechanical Ventilator 86 06/20/19 16:00 100 06/20/19 16:00 83 06/20/19 16:00 Mechanical Ventilator 06/20/19 16:00 97.6 82 34 115/71 93 Mechanical Ventilator 72 06/20/19 15:19 81 38 70 06/20/19 15:00 84 36 113/75 92 Mechanical Ventilator 06/20/19 14:15 81 36 127/67 93 Mechanical Ventilator 06/20/19 14:00 86 31 125/73 89 Mechanical Ventilator 06/20/19 14:00 127/67 06/20/19 13:45 82 36 124/81 93 Mechanical Ventilator 06/20/19 13:30 83 35 122/71 93 Mechanical Ventilator 06/20/19 13:15 84 35 127/79 93 Mechanical Ventilator 70 06/20/19 13:06 81 36 70 06/20/19 13:00 84 40 129/82 92 Mechanical Ventilator 70 06/20/19 13:00 129/82 06/20/19 12:00 97.2 83 37 127/92 95 Mechanical Ventilator 70 06/20/19 12:00 Mechanical Ventilator 06/20/19 12:00 130/76 06/20/19 12:00 70 06/20/19 11:39 81 06/20/19 11:30 82 36 123/74 95 Mechanical Ventilator 70 06/20/19 11:00 86 39 113/72 94 Mechanical Ventilator 70 06/20/19 11:00 123/74 06/20/19 10:34 92 33 70 06/20/19 10:00 77 33 112/66 95 Mechanical Ventilator 70 06/20/19 10:00 112/66 06/20/19 09:00 84 37 111/70 95 Mechanical Ventilator 70 06/20/19 09:00 111/70 06/20/19 08:57 92 39 70 06/20/19 08:45 94 34 116/67 91 Mechanical Ventilator 70 06/20/19 08:30 79 36 116/67 96 Mechanical Ventilator 70 06/20/19 08:15 79 34 119/66 96 Mechanical Ventilator 70 06/20/19 08:00 121/70 06/20/19 08:00 Mechanical Ventilator 06/20/19 08:00 97.8 78 35 121/70 95 Mechanical Ventilator 70 06/20/19 07:32 73 06/20/19 07:20 85 30 70 06/20/19 07:00 78 34 127/77 96 Mechanical Ventilator 80 06/20/19 07:00 127/77 06/20/19 06:00 146/81 06/20/19 06:00 87 34 129/72 97 Mechanical Ventilator 80 06/20/19 05:18 70 06/20/19 05:09 75 32 70 06/20/19 05:00 75 34 130/91 100 Mechanical Ventilator 80 06/20/19 05:00 137/76 06/20/19 04:00 Mechanical Ventilator 06/20/19 04:00 140/79 06/20/19 04:00 98.0 88 32 148/79 100 Mechanical Ventilator 80 06/20/19 04:00 89 06/20/19 04:00 80 06/20/19 03:45 100 37 152/104 91 Mechanical Ventilator 80 06/20/19 03:30 90 33 144/35 91 Mechanical Ventilator 80 06/20/19 03:15 91 36 137/41 93 Mechanical Ventilator 80 06/20/19 03:02 92 35 80 06/20/19 03:00 91 33 139/40 95 Mechanical Ventilator 80 06/20/19 03:00 137/41 06/20/19 02:45 90 33 145/38 95 Mechanical Ventilator 80 06/20/19 02:41 108/27 06/20/19 02:40 145/38 06/20/19 02:30 97 31 108/27 93 Mechanical Ventilator 80 06/20/19 02:15 95 31 138/34 91 Mechanical Ventilator 80 06/20/19 02:00 138/34 06/20/19 02:00 94 32 133/36 95 Mechanical Ventilator 80 06/20/19 01:45 92 32 131/31 95 Mechanical Ventilator 100 06/20/19 01:30 93 31 126/44 93 Mechanical Ventilator 100 06/20/19 01:17 94 39 80 06/20/19 01:15 78 35 136/35 100 Mechanical Ventilator 100 06/20/19 01:00 91 34 143/37 94 Mechanical Ventilator 100 06/20/19 01:00 136/35 06/20/19 00:45 87 31 139/48 100 Mechanical Ventilator 100 06/20/19 00:30 90 32 132/30 100 Mechanical Ventilator 100 06/20/19 00:00 Mechanical Ventilator 06/20/19 00:00 134/54 06/20/19 00:00 100 06/20/19 00:00 98.0 88 33 134/54 99 Mechanical Ventilator 100 06/20/19 00:00 82 06/19/19 23:24 90 33 100 06/19/19 23:00 131/45 06/19/19 23:00 84 32 131/45 99 Mechanical Ventilator 100 Intake and Output 06/19/19 06/20/19 19:00 07:00 Intake Total 1010.82 ml 1150.62 ml Output Total 450 ml 810 ml Balance 560.82 ml 340.62 ml Free Water 30 ml IV Total 730.82 ml 1150.62 ml Blood Product 250 ml Output Urine Total 450 ml 810 ml # Bowel Movements 3 Laboratory Tests 06/20/19 04:20: White Blood Count 19.6#H, Red Blood Count 3.08L, Hemoglobin 8.8L, Hematocrit 27.2L, Mean Corpuscular Volume 88, Mean Corpuscular Hemoglobin 28.8, Mean Corpuscular Hemoglobin Concent 32.6, Red Cell Distribution Width 16.6H, Platelet Count 71L, Mean Platelet Volume 7.7, Neutrophils (%) (Auto) , Lymphocytes (%) (Auto) , Monocytes (%) (Auto) , Eosinophils (%) (Auto) , Basophils (%) (Auto) , Differential Total Cells Counted 100, Neutrophils % ( Manual) 82H, Lymphocytes % (Manual) 11L, Monocytes % (Manual) 6, Eosinophils % ( Manual) 0, Basophils % (Manual) 0, Band Neutrophils 1, Nucleated Red Blood Cells 3, Platelet Estimate DecreasedL, Platelet Morphology Normal, Hypochromasia 2+, Anisocytosis 1+, Spherocytes 1+, Sodium Level 138, Potassium Level 4.5, Chloride Level 109H, Carbon Dioxide Level 21, Anion Gap 8, Blood Urea Nitrogen 16, Creatinine 1.0, Estimat Glomerular Filtration Rate , Glucose Level 184H, Calcium Level 8.6, Total Bilirubin 0.4, Aspartate Amino Transf (AST/ SGOT) 24, Alanine Aminotransferase (ALT/SGPT) 25, Alkaline Phosphatase 163H, Total Protein 7.3, Albumin 1.8L, Globulin 5.5, Albumin/Globulin Ratio 0.3L Height (Feet): 5 Height (Inches): 8.00 Weight (Pounds): 209 Manolo Okeefe MD Jun 20, 2019 23:03
[2019-06-21] VITALS (24 sets, daily range): BP systolic 101–132; BP diastolic 32–85
[2019-06-21] MEDS: Octreotide Acetate 500 MCG in Sodium Chloride 499 ML IV SCH ×3 (00:17→19:43)
--- NOTE | 2019-06-21 01:00 | Consultation ---
DATE OF CONSULTATION: 06/20/2019 GASTROENTEROLOGY CONSULTATION CHIEF COMPLAINT: I was asked to see this patient by Dr. Chano Galeana for evaluation of anemia, gastrointestinal bleeding, and liver disease. HISTORY OF PRESENT ILLNESS: The patient is a 74-year-old debilitated, unfortunate, man from a fdc, who was brought in due to septic shock, respiratory failure, and lactic acidosis. The patient herself is obtunded and unable to provide any history. Most information is available from the chart. The patient has had a known history of liver disease, although on this admission, his thrombocytopenia appears to be worse. The patient had some dark stools yesterday, which were heme positive and was presumed to be some degree of melena. Today, he has not had any bowel movements, but he did receive blood transfusion yesterday. He has a gastrostomy tube, which is not being used at this time. He has a number of medical problems, which are outlined below. PAST MEDICAL HISTORY: History of anoxic encephalopathy, stroke, chronic respiratory failure, cirrhosis, seizure disorder, status post gastrostomy tube placement, and status post tracheostomy tube placement. FAMILY HISTORY: Unavailable. SOCIAL HISTORY: The patient is from a fdc. Otherwise, no history is available. REVIEW OF SYSTEMS: Unobtainable. MEDICATIONS: See the chart list for details. PHYSICAL EXAMINATION: GENERAL: Debilitated, nonverbal, man, seen in the ICU on the ventilator with the nurse at bedside. HEENT: Normocephalic and atraumatic. Dentition is poor. Tracheostomy is in place. CHEST: Revealed coarse breath sounds and rhonchi. CARDIOVASCULAR: Revealed regular rate. ABDOMEN: Obese and soft. Good bowel sounds. Gastrostomy tube in good position. EXTREMITIES: Revealed contracture deformities. NEUROLOGIC: Normal for obtundation. LABORATORY DATA: Noted. ASSESSMENT: This patient presents with some degree of dark stools, which are indicative of gastrointestinal bleeding. This may be due to peptic ulcer disease or gastroesophageal reflux or other pathologies. Here, the patient has thrombocytopenia. There is a concern that there might be some degree of portal hypertension and therefore, I will start him on Sandostatin drip for now until his evaluation is complete. The proton pump inhibitor should be given and the tube feedings should be held. Discussion will be held with the patient's family regarding the risks and indications of endoscopy and this can be scheduled once family consent has been obtained. In addition, the patient's hepatitis serologies should be checked. RECOMMENDATIONS: 1. Follow up CBC. 2. Hold tube feeding. 3. Continue proton pump inhibitor. 4. Check hepatitis serologies. 5. Sandostatin drip. 6. Family discussion and subsequent endoscopy. Thank you for asking me to participate in the care of this patient. Manolo Okeefe M.D. DR: Aggie JOB#: [id number] CC:
[2019-06-21] MEDS: NovoLOG Insulin Flexpen SUBQ SCH ×4 (05:47→21:12)
[2019-06-21 06:49] LABS: HEMATOCRIT 24.7 % (42.0-52.0); HEMOGLOBIN 8.1 G/DL (14.2-18.0); MEAN CORPUSCULAR VOLUME 88 FL (80-99); PLATELET COUNT 62 K/UL (150-450); RED CELL DISTRIBUTION WIDTH 16.5 % (11.6-14.8); WHITE BLOOD COUNT 13.8 K/UL (4.8-10.8)
[2019-06-21 06:54] LABS: ALANINE AMINOTRANSFERASE 23 U/L (12-78); ALBUMIN 1.5 G/DL (3.4-5.0); ALBUMIN/GLOBULIN RATIO 0.3 (1.0-2.7); ALKALINE PHOSPHATASE 115 U/L (46-116); ANION GAP 9 mmol/L (5-15); ASPARTATE AMINO TRANSFERASE 29 U/L (15-37); BILIRUBIN,TOTAL 0.5 MG/DL (0.2-1.0); BLOOD UREA NITROGEN 12 mg/dL (7-18); CALCIUM 8.7 MG/DL (8.5-10.1); CARBON DIOXIDE 23 MMOL/L (21-32); CHLORIDE 110 MMOL/L (98-107); CREATININE 0.9 MG/DL (0.55-1.30); POTASSIUM 4.1 MMOL/L (3.5-5.1); SODIUM 142 MMOL/L (136-145)
--- NOTE | 2019-06-21 08:31 | General Progress Note ---
Assessment/Plan Problem List: (1) GIB (gastrointestinal bleeding) ICD Codes: K92.2 - Gastrointestinal hemorrhage, unspecified SNOMED: 24996714 (2) Anemia ICD Codes: D64.9 - Anemia, unspecified SNOMED: 027670519 Qualifiers: Qualified Codes: D64.9 - Anemia, unspecified (3) Hyponatremia ICD Codes: E87.1 - Hypo-osmolality and hyponatremia SNOMED: 52684443 (4) Renal insufficiency ICD Codes: N28.9 - Disorder of kidney and ureter, unspecified; R65.20 - Severe sepsis without septic shock SNOMED: 821233397, 292958569 (5) Pneumonia ICD Codes: J18.9 - Pneumonia, unspecified organism SNOMED: 624446982, 034293781 Qualifiers: Qualified Codes: J18.9 - Pneumonia, unspecified organism (6) Severe sepsis ICD Codes: A41.9 - Sepsis, unspecified organism; R65.20 - Severe sepsis without septic shock SNOMED: 00943858 (7) Decubitus skin ulcer ICD Codes: L89.90 - Pressure ulcer of unspecified site, unspecified stage SNOMED: 187700436 (8) Leukocytosis ICD Codes: D72.829 - Elevated white blood cell count, unspecified SNOMED: 516773694, 639149623 (9) Hyperglycemia ICD Codes: R73.9 - Hyperglycemia, unspecified SNOMED: 08150338 (10) Hypothermia ICD Codes: T68.XXXA - Hypothermia, initial encounter SNOMED: 056561782 Qualifiers: Qualified Codes: T68.XXXA - Hypothermia, initial encounter Status: stable, unchanged Assessment/Plan: cont current rx monitor off pressors ivf iv abx per id follow up cultures PPI rx GI eval vent support resp rx poor prognosis Subjective ROS Limited/Unobtainable: Yes Constitutional: Reports: malaise, weakness HEENT: Reports: no symptoms Cardiovascular: Reports: no symptoms Respiratory: Reports: shortness of breath, sputum Gastrointestinal/Abdominal: Reports: difficulty swallowing Genitourinary: Reports: no symptoms Neurologic/Psychiatric: Reports: pre-existing deficit, seizure Endocrine: Reports: no symptoms Hematologic/Lymphatic: Reports: anemia Allergies: Coded Allergies: No Known Allergies (Unverified , 07/04/18) All Systems: reviewed and negative except above Subjective off pressors. awake. no bleeding noted. no fever or chills. labs reviewed. on abx. Objective Last 24 Hour Vital Signs Date Time Temp Pulse Resp B/P (MAP) Pulse Ox O2 Delivery O2 Flow Rate FiO2 06/21/19 08:00 103 06/21/19 08:00 100 06/21/19 07:01 103 34 100 06/21/19 07:00 103 28 113/32 80 Mechanical Ventilator 06/21/19 06:00 97 27 108/72 91 Mechanical Ventilator 06/21/19 05:24 101 29 70 06/21/19 05:00 84 29 115/69 93 Mechanical Ventilator 06/21/19 04:00 Mechanical Ventilator 06/21/19 04:00 101 06/21/19 04:00 70 06/21/19 04:00 97.0 94 29 101/73 94 Mechanical Ventilator 06/21/19 03:00 82 29 114/75 92 Mechanical Ventilator 06/21/19 02:40 88 28 70 06/21/19 02:00 92 27 104/65 93 Mechanical Ventilator 06/21/19 01:00 90 27 114/72 92 Mechanical Ventilator 06/21/19 00:59 96 26 70 06/21/19 00:00 Mechanical Ventilator 06/21/19 00:00 97.5 79 24 125/80 94 Mechanical Ventilator 06/21/19 00:00 82 06/20/19 23:54 95 30 70 06/20/19 23:00 79 28 121/74 96 Mechanical Ventilator 06/20/19 22:00 83 29 113/78 94 Mechanical Ventilator 06/20/19 21:00 83 31 122/68 94 Mechanical Ventilator 06/20/19 20:56 84 32 70 06/20/19 20:00 70 06/20/19 20:00 75 06/20/19 20:00 Mechanical Ventilator 06/20/19 20:00 98.0 85 31 114/71 94 Mechanical Ventilator 06/20/19 19:31 87 34 70 06/20/19 19:00 83 29 116/72 94 Mechanical Ventilator 06/20/19 18:00 85 30 116/76 93 Mechanical Ventilator 93 06/20/19 17:19 82 31 70 06/20/19 17:00 83 34 124/75 93 Mechanical Ventilator 86 06/20/19 16:00 100 06/20/19 16:00 83 06/20/19 16:00 Mechanical Ventilator 06/20/19 16:00 97.6 82 34 115/71 93 Mechanical Ventilator 72 06/20/19 15:19 81 38 70 06/20/19 15:00 84 36 113/75 92 Mechanical Ventilator 06/20/19 14:15 81 36 127/67 93 Mechanical Ventilator 06/20/19 14:00 86 31 125/73 89 Mechanical Ventilator 06/20/19 14:00 127/67 06/20/19 13:45 82 36 124/81 93 Mechanical Ventilator 06/20/19 13:30 83 35 122/71 93 Mechanical Ventilator 06/20/19 13:15 84 35 127/79 93 Mechanical Ventilator 70 06/20/19 13:06 81 36 70 06/20/19 13:00 84 40 129/82 92 Mechanical Ventilator 70 06/20/19 13:00 129/82 06/20/19 12:00 97.2 83 37 127/92 95 Mechanical Ventilator 70 06/20/19 12:00 Mechanical Ventilator 06/20/19 12:00 130/76 06/20/19 12:00 70 06/20/19 11:39 81 06/20/19 11:30 82 36 123/74 95 Mechanical Ventilator 70 06/20/19 11:00 86 39 113/72 94 Mechanical Ventilator 70 06/20/19 11:00 123/74 06/20/19 10:34 92 33 70 06/20/19 10:00 77 33 112/66 95 Mechanical Ventilator 70 06/20/19 10:00 112/66 06/20/19 09:00 84 37 111/70 95 Mechanical Ventilator 70 06/20/19 09:00 111/70 06/20/19 08:57 92 39 70 06/20/19 08:45 94 34 116/67 91 Mechanical Ventilator 70 06/20/19 08:30 79 36 116/67 96 Mechanical Ventilator 70 Intake and Output 06/20/19 06/21/19 19:00 07:00 Intake Total 589.58 ml 610.8 ml Output Total 1260 ml 650 ml Balance -670.42 ml -39.2 ml Free Water 120 ml 50 ml IV Total 469.58 ml 560.8 ml Output Urine Total 1260 ml 650 ml Laboratory Tests 06/21/19 04:40: White Blood Count 13.8H, Red Blood Count 2.80L, Hemoglobin 8.1L, Hematocrit 24.7L, Mean Corpuscular Volume 88, Mean Corpuscular Hemoglobin 29.0, Mean Corpuscular Hemoglobin Concent 32.8, Red Cell Distribution Width 16.5H, Platelet Count 62L, Mean Platelet Volume 7.9, Neutrophils (%) (Auto) , Lymphocytes (%) (Auto) , Monocytes (%) (Auto) , Eosinophils (%) (Auto) , Basophils (%) (Auto) , Neutrophils % (Manual) [Pending], Lymphocytes % (Manual) [Pending], Platelet Estimate [Pending], Platelet Morphology [Pending], Erythrocyte Sedimentation Rate [Pending], Sodium Level 142, Potassium Level 4.1 , Chloride Level 110H, Carbon Dioxide Level 23, Anion Gap 9, Blood Urea Nitrogen 12, Creatinine 0.9, Estimat Glomerular Filtration Rate , Glucose Level 128H, Calcium Level 8.7, Total Bilirubin 0.5, Aspartate Amino Transf (AST/SGOT) 29, Alanine Aminotransferase (ALT/SGPT) 23, Alkaline Phosphatase 115, C- Reactive Protein, Quantitative 15.7H, Total Protein 6.4, Albumin 1.5L, Globulin 4.9, Albumin/Globulin Ratio 0.3L, Lipase 116, Hepatitis A IgM Antibody [Pending] , Hepatitis B Surface Antigen [Pending], Hepatitis B Core IgM Antibody [Pending] , Hepatitis C Antibody [Pending] Height (Feet): 5 Height (Inches): 8.00 Weight (Pounds): 210 Objective cont current rx pressors as needed ivf PPI octreotide drip iv abx per id follow up cultures GI follow up vent support resp rx poor prognosis Chano Galeana MD Jun 21, 2019 08:31
--- NOTE | 2019-06-21 09:00 | Diagnostic Imaging Report ---
EXAM: XR Chest, 1 View CLINICAL HISTORY: Follow-up TECHNIQUE: Frontal view of the chest. COMPARISON: Chest x-rays dated 06 16 19 FINDINGS: Lungs: Persistent diffuse bilateral patchy reticular interstitial and alveolar opacities. Pleural space: Cannot exclude a small left pleural effusion. Heart: Unremarkable. No cardiomegaly. Mediastinum: Unremarkable. Bones joints: Unremarkable. Vasculature: Atherosclerotic calcifications are noted within the aortic arch. Tubes, lines and devices: Stable positioning of an right IJ central venous catheter with the tip in the SVC region. Stable positioning of a tracheostomy tube. Telemetry leads overlie the thorax. IMPRESSION: 1. Persistent diffuse bilateral patchy reticular interstitial and alveolar opacities. This is may represent pneumonia, pulmonary edema, or ARDS. 2. Cannot exclude a small left pleural effusion.
[2019-06-21] MEDS: Pantoprazole Inj IVP SCH (09:08)
[2019-06-21] MEDS: levETIRAcetam 500mg/5ml Liquid GT SCH ×2 (09:08→21:15)
[2019-06-21] MEDS: cefTRIAXone 1 GM in D5W 55 ML IVPB SCH (09:08)
--- NOTE | 2019-06-21 09:49 | Critical Care Progress Note ---
Assessment/Plan Assessment/Plan chronic respiratory failure multifocal pneumonia hypoxemia sepsis leukocytosis hyponatremia ARF trach GT severe PCM chronic encephalopathy possible colitis PLAN renal and ID evaluation noted sodium better; wbc better vent support as is- no wean monitor acid base iv antibiotics and cultures noted ICU care reviewed critical and needs close monitoring hydration with caution and dc monitor imaging for change monitor effusion monitor cultures off load all care reviewed in detail monitor for seizures and ticks close follow up of all parameters continue to optimize but prognosis very poor medications/laboratory data/nursing notes/ICU care reviewed in detail note reviewed and edited care discussed with RN and RT ICU time spent 45 minutes Critical Care - Subjective Interval Events: all care noted on vent in ICU all consultants reviewed remains critical and ill Condition: critical EKG Rhythm: Sinus Rhythm Residuals: minimal Tube Feeding Tolerated: yes I&O: Intake and Output 06/20/19 06/21/19 19:00 07:00 Intake Total 589.58 ml 685.8 ml Output Total 1260 ml 650 ml Balance -670.42 ml 35.8 ml Free Water 120 ml 50 ml IV Total 469.58 ml 635.8 ml Output Urine Total 1260 ml 650 ml Critical Care - Objective Last 24 Hour Vital Signs Date Time Temp Pulse Resp B/P (MAP) Pulse Ox O2 Delivery O2 Flow Rate FiO2 06/21/19 09:29 95 30 90 06/21/19 09:00 96 26 132/80 99 Mechanical Ventilator 100 06/21/19 08:00 103 06/21/19 08:00 96.9 96 26 120/85 96 Mechanical Ventilator 100 06/21/19 08:00 100 06/21/19 07:01 103 34 100 06/21/19 07:00 103 28 113/32 80 Mechanical Ventilator 06/21/19 06:00 97 27 108/72 91 Mechanical Ventilator 06/21/19 05:24 101 29 70 06/21/19 05:00 84 29 115/69 93 Mechanical Ventilator 06/21/19 04:00 Mechanical Ventilator 06/21/19 04:00 101 06/21/19 04:00 70 06/21/19 04:00 97.0 94 29 101/73 94 Mechanical Ventilator 06/21/19 03:00 82 29 114/75 92 Mechanical Ventilator 06/21/19 02:40 88 28 70 06/21/19 02:00 92 27 104/65 93 Mechanical Ventilator 06/21/19 01:00 90 27 114/72 92 Mechanical Ventilator 06/21/19 00:59 96 26 70 06/21/19 00:00 Mechanical Ventilator 06/21/19 00:00 97.5 79 24 125/80 94 Mechanical Ventilator 06/21/19 00:00 82 06/20/19 23:54 95 30 70 06/20/19 23:00 79 28 121/74 96 Mechanical Ventilator 06/20/19 22:00 83 29 113/78 94 Mechanical Ventilator 06/20/19 21:00 83 31 122/68 94 Mechanical Ventilator 06/20/19 20:56 84 32 70 06/20/19 20:00 70 06/20/19 20:00 75 06/20/19 20:00 Mechanical Ventilator 06/20/19 20:00 98.0 85 31 114/71 94 Mechanical Ventilator 06/20/19 19:31 87 34 70 06/20/19 19:00 83 29 116/72 94 Mechanical Ventilator 06/20/19 18:00 85 30 116/76 93 Mechanical Ventilator 93 06/20/19 17:19 82 31 70 06/20/19 17:00 83 34 124/75 93 Mechanical Ventilator 86 06/20/19 16:00 100 06/20/19 16:00 83 06/20/19 16:00 Mechanical Ventilator 06/20/19 16:00 97.6 82 34 115/71 93 Mechanical Ventilator 72 06/20/19 15:19 81 38 70 06/20/19 15:00 84 36 113/75 92 Mechanical Ventilator 06/20/19 14:15 81 36 127/67 93 Mechanical Ventilator 06/20/19 14:00 86 31 125/73 89 Mechanical Ventilator 06/20/19 14:00 127/67 06/20/19 13:45 82 36 124/81 93 Mechanical Ventilator 06/20/19 13:30 83 35 122/71 93 Mechanical Ventilator 06/20/19 13:15 84 35 127/79 93 Mechanical Ventilator 70 06/20/19 13:06 81 36 70 06/20/19 13:00 84 40 129/82 92 Mechanical Ventilator 70 06/20/19 13:00 129/82 06/20/19 12:00 97.2 83 37 127/92 95 Mechanical Ventilator 70 06/20/19 12:00 Mechanical Ventilator 06/20/19 12:00 130/76 06/20/19 12:00 70 06/20/19 11:39 81 06/20/19 11:30 82 36 123/74 95 Mechanical Ventilator 70 06/20/19 11:00 86 39 113/72 94 Mechanical Ventilator 70 06/20/19 11:00 123/74 06/20/19 10:34 92 33 70 06/20/19 10:00 77 33 112/66 95 Mechanical Ventilator 70 06/20/19 10:00 112/66 Labs: Labs Test 06/18/19 10:00 06/19/19 04:30 06/19/19 20:25 06/20/19 04:20 Stool Occult Blood Positive (NEGATIVE) White Blood Count 11.2 K/UL (4.8-10.8) 19.6 K/UL (4.8-10.8) Red Blood Count 2.62 M/UL (4.70-6.10) 3.08 M/UL (4.70-6.10) Hemoglobin 7.7 G/DL (14.2-18.0) 8.8 G/DL (14.2-18.0) Hematocrit 23.4 % (42.0-52.0) 27.2 % (42.0-52.0) Mean Corpuscular Volume 90 FL (80-99) 88 FL (80-99) Mean Corpuscular Hemoglobin 29.4 PG (27.0-31.0) 28.8 PG (27.0-31.0) Mean Corpuscular Hemoglobin Concent 32.9 G/DL (32.0-36.0) 32.6 G/DL (32.0-36.0) Red Cell Distribution Width 16.0 % (11.6-14.8) 16.6 % (11.6-14.8) Platelet Count 58 K/UL (150-450) 71 K/UL (150-450) Mean Platelet Volume 7.9 FL (6.5-10.1) 7.7 FL (6.5-10.1) Neutrophils (%) (Auto) % (45.0-75.0) % (45.0-75.0) Lymphocytes (%) (Auto) % (20.0-45.0) % (20.0-45.0) Monocytes (%) (Auto) % (1.0-10.0) % (1.0-10.0) Eosinophils (%) (Auto) % (0.0-3.0) % (0.0-3.0) Basophils (%) (Auto) % (0.0-2.0) % (0.0-2.0) Differential Total Cells Counted 100 100 Neutrophils % (Manual) 87 % (45-75) 82 % (45-75) Lymphocytes % (Manual) 8 % (20-45) 11 % (20-45) Monocytes % (Manual) 3 % (1-10) 6 % (1-10) Eosinophils % (Manual) 0 % (0-3) 0 % (0-3) Basophils % (Manual) 0 % (0-2) 0 % (0-2) Band Neutrophils 2 % (0-8) 1 % (0-8) Nucleated Red Blood Cells 3 /100 WBC 3 /100 WBC Platelet Estimate Decreased Decreased Platelet Morphology Normal Normal Hypochromasia 3+ 2+ Sodium Level 133 MMOL/L (136-145) 138 MMOL/L (136-145) Potassium Level 4.9 MMOL/L (3.5-5.1) 4.5 MMOL/L (3.5-5.1) Chloride Level 105 MMOL/L (98-107) 109 MMOL/L (98-107) Carbon Dioxide Level 22 MMOL/L (21-32) 21 MMOL/L (21-32) Anion Gap 6 mmol/L (5-15) 8 mmol/L (5-15) Blood Urea Nitrogen 12 mg/dL (7-18) 16 mg/dL (7-18) Creatinine 0.9 MG/DL (0.55-1.30) 1.0 MG/DL (0.55-1.30) Estimat Glomerular Filtration Rate mL/min (>60) mL/min (>60) Glucose Level 129 MG/DL (74-106) 184 MG/DL (74-106) Calcium Level 8.7 MG/DL (8.5-10.1) 8.6 MG/DL (8.5-10.1) Total Bilirubin 0.5 MG/DL (0.2-1.0) 0.4 MG/DL (0.2-1.0) Aspartate Amino Transf (AST/SGOT) 28 U/L (15-37) 24 U/L (15-37) Alanine Aminotransferase (ALT/SGPT) 26 U/L (12-78) 25 U/L (12-78) Alkaline Phosphatase 139 U/L (46-116) 163 U/L (46-116) Total Protein 7.4 G/DL (6.4-8.2) 7.3 G/DL (6.4-8.2) Albumin 1.9 G/DL (3.4-5.0) 1.8 G/DL (3.4-5.0) Globulin 5.5 g/dL 5.5 g/dL Albumin/Globulin Ratio 0.3 (1.0-2.7) 0.3 (1.0-2.7) Vancomycin Level Trough 15.6 ug/mL (5.0-12.0) Anisocytosis 1+ Spherocytes 1+ Test 06/21/19 04:40 White Blood Count 13.8 K/UL (4.8-10.8) Red Blood Count 2.80 M/UL (4.70-6.10) Hemoglobin 8.1 G/DL (14.2-18.0) Hematocrit 24.7 % (42.0-52.0) Mean Corpuscular Volume 88 FL (80-99) Mean Corpuscular Hemoglobin 29.0 PG (27.0-31.0) Mean Corpuscular Hemoglobin Concent 32.8 G/DL (32.0-36.0) Red Cell Distribution Width 16.5 % (11.6-14.8) Platelet Count 62 K/UL (150-450) Mean Platelet Volume 7.9 FL (6.5-10.1) Neutrophils (%) (Auto) % (45.0-75.0) Lymphocytes (%) (Auto) % (20.0-45.0) Monocytes (%) (Auto) % (1.0-10.0) Eosinophils (%) (Auto) % (0.0-3.0) Basophils (%) (Auto) % (0.0-2.0) Erythrocyte Sedimentation Rate 126 MM/HR (0-20) Sodium Level 142 MMOL/L (136-145) Potassium Level 4.1 MMOL/L (3.5-5.1) Chloride Level 110 MMOL/L (98-107) Carbon Dioxide Level 23 MMOL/L (21-32) Anion Gap 9 mmol/L (5-15) Blood Urea Nitrogen 12 mg/dL (7-18) Creatinine 0.9 MG/DL (0.55-1.30) Estimat Glomerular Filtration Rate mL/min (>60) Glucose Level 128 MG/DL (74-106) Calcium Level 8.7 MG/DL (8.5-10.1) Total Bilirubin 0.5 MG/DL (0.2-1.0) Aspartate Amino Transf (AST/SGOT) 29 U/L (15-37) Alanine Aminotransferase (ALT/SGPT) 23 U/L (12-78) Alkaline Phosphatase 115 U/L (46-116) C-Reactive Protein, Quantitative 15.7 mg/dL (0.00-0.90) Total Protein 6.4 G/DL (6.4-8.2) Albumin 1.5 G/DL (3.4-5.0) Globulin 4.9 g/dL Albumin/Globulin Ratio 0.3 (1.0-2.7) Lipase 116 U/L (73-393) Objective: WDWN trach and vent noted anasarca reduced breath sounds bilaterally with scattered rhonchi [id number] without MRG NABS nontender no HSM; GT; no distention no CCE nonfocal poor LOC skin exam reviewed reviewed and examined Accucheck: 137 Bakari Montanez MD Jun 21, 2019 09:49
--- NOTE | 2019-06-21 10:30 | General Progress Note ---
Assessment/Plan Status: stable, unchanged Assessment/Plan: Assessment - Melena/heme (+) stools (none today) - Anemia - Chronic liver disease with thrombocytopenia, possibly portal HTN - Resp failure - s/p trach - dysphagia - s/p PEG - Anoxic encephalopathy, non communicative - bed bound, contracted - poor Px Recommendations - hold feeds - check hepatitis serologies - agree with PPI - Sandostatin gtt - monitor CBC - discuss with family - Endoscopy once consent obtained Subjective ROS Limited/Unobtainable: No Allergies: Coded Allergies: No Known Allergies (Unverified , 07/04/18) Objective Last 24 Hour Vital Signs Date Time Temp Pulse Resp B/P (MAP) Pulse Ox O2 Delivery O2 Flow Rate FiO2 06/21/19 10:00 95 25 108/75 96 Mechanical Ventilator 100 06/21/19 09:29 95 30 90 06/21/19 09:00 96 26 132/80 99 Mechanical Ventilator 100 06/21/19 08:00 103 06/21/19 08:00 96.9 96 26 120/85 96 Mechanical Ventilator 100 06/21/19 08:00 100 06/21/19 07:01 103 34 100 06/21/19 07:00 103 28 113/32 80 Mechanical Ventilator 06/21/19 06:00 97 27 108/72 91 Mechanical Ventilator 06/21/19 05:24 101 29 70 06/21/19 05:00 84 29 115/69 93 Mechanical Ventilator 06/21/19 04:00 Mechanical Ventilator 06/21/19 04:00 101 06/21/19 04:00 70 06/21/19 04:00 97.0 94 29 101/73 94 Mechanical Ventilator 06/21/19 03:00 82 29 114/75 92 Mechanical Ventilator 06/21/19 02:40 88 28 70 06/21/19 02:00 92 27 104/65 93 Mechanical Ventilator 06/21/19 01:00 90 27 114/72 92 Mechanical Ventilator 06/21/19 00:59 96 26 70 06/21/19 00:00 Mechanical Ventilator 06/21/19 00:00 97.5 79 24 125/80 94 Mechanical Ventilator 06/21/19 00:00 82 06/20/19 23:54 95 30 70 06/20/19 23:00 79 28 121/74 96 Mechanical Ventilator 06/20/19 22:00 83 29 113/78 94 Mechanical Ventilator 06/20/19 21:00 83 31 122/68 94 Mechanical Ventilator 06/20/19 20:56 84 32 70 06/20/19 20:00 70 06/20/19 20:00 75 06/20/19 20:00 Mechanical Ventilator 06/20/19 20:00 98.0 85 31 114/71 94 Mechanical Ventilator 06/20/19 19:31 87 34 70 06/20/19 19:00 83 29 116/72 94 Mechanical Ventilator 06/20/19 18:00 85 30 116/76 93 Mechanical Ventilator 93 06/20/19 17:19 82 31 70 06/20/19 17:00 83 34 124/75 93 Mechanical Ventilator 86 06/20/19 16:00 100 06/20/19 16:00 83 06/20/19 16:00 Mechanical Ventilator 06/20/19 16:00 97.6 82 34 115/71 93 Mechanical Ventilator 72 06/20/19 15:19 81 38 70 06/20/19 15:00 84 36 113/75 92 Mechanical Ventilator 06/20/19 14:15 81 36 127/67 93 Mechanical Ventilator 06/20/19 14:00 86 31 125/73 89 Mechanical Ventilator 06/20/19 14:00 127/67 06/20/19 13:45 82 36 124/81 93 Mechanical Ventilator 06/20/19 13:30 83 35 122/71 93 Mechanical Ventilator 06/20/19 13:15 84 35 127/79 93 Mechanical Ventilator 70 06/20/19 13:06 81 36 70 06/20/19 13:00 84 40 129/82 92 Mechanical Ventilator 70 06/20/19 13:00 129/82 06/20/19 12:00 97.2 83 37 127/92 95 Mechanical Ventilator 70 06/20/19 12:00 Mechanical Ventilator 06/20/19 12:00 130/76 06/20/19 12:00 70 06/20/19 11:39 81 06/20/19 11:30 82 36 123/74 95 Mechanical Ventilator 70 06/20/19 11:00 86 39 113/72 94 Mechanical Ventilator 70 06/20/19 11:00 123/74 06/20/19 10:34 92 33 70 Intake and Output 06/20/19 06/21/19 19:00 07:00 Intake Total 589.58 ml 685.8 ml Output Total 1260 ml 650 ml Balance -670.42 ml 35.8 ml Free Water 120 ml 50 ml IV Total 469.58 ml 635.8 ml Output Urine Total 1260 ml 650 ml Laboratory Tests 06/21/19 04:40: White Blood Count 13.8H, Red Blood Count 2.80L, Hemoglobin 8.1L, Hematocrit 24.7L, Mean Corpuscular Volume 88, Mean Corpuscular Hemoglobin 29.0, Mean Corpuscular Hemoglobin Concent 32.8, Red Cell Distribution Width 16.5H, Platelet Count 62L, Mean Platelet Volume 7.9, Neutrophils (%) (Auto) , Lymphocytes (%) (Auto) , Monocytes (%) (Auto) , Eosinophils (%) (Auto) , Basophils (%) (Auto) , Differential Total Cells Counted 100, Neutrophils % ( Manual) 76H, Lymphocytes % (Manual) 21, Monocytes % (Manual) 2, Eosinophils % ( Manual) 1, Basophils % (Manual) 0, Band Neutrophils 0, Platelet Estimate DecreasedL, Platelet Morphology Normal, Anisocytosis 1+, Erythrocyte Sedimentation Rate 126H, Sodium Level 142, Potassium Level 4.1, Chloride Level 110H, Carbon Dioxide Level 23, Anion Gap 9, Blood Urea Nitrogen 12, Creatinine 0.9, Estimat Glomerular Filtration Rate , Glucose Level 128H, Calcium Level 8.7 , Total Bilirubin 0.5, Aspartate Amino Transf (AST/SGOT) 29, Alanine Aminotransferase (ALT/SGPT) 23, Alkaline Phosphatase 115, C-Reactive Protein, Quantitative 15.7H, Total Protein 6.4, Albumin 1.5L, Globulin 4.9, Albumin/ Globulin Ratio 0.3L, Lipase 116, Hepatitis A IgM Antibody [Pending], Hepatitis B Surface Antigen [Pending], Hepatitis B Core IgM Antibody [Pending], Hepatitis C Antibody [Pending] Height (Feet): 5 Height (Inches): 8.00 Weight (Pounds): 210 General Appearance: lethargic EENT: normal ENT inspection Neck: supple Cardiovascular: tachycardia Respiratory/Chest: decreased breath sounds Abdomen: non tender, soft Extremities: non-tender Edgar Esqueda MD Jun 21, 2019 10:30
--- NOTE | 2019-06-21 11:25 | Infectious Diseases Prog Note ---
"Assessment/Plan Assessment/Plan antibiotics : ceftriaxone A 1. proteus | serratia pneumonia 2. shock improving 3. cirrhosis 4. respiratory failure 5. seizures P 1. continue ceftriaxone 2. will follow up cultures Subjective ROS Limited/Unobtainable: Yes Allergies: Coded Allergies: No Known Allergies (Unverified , 07/04/18) Objective Vital Signs Last 24 Hour Vital Signs Date Time Temp Pulse Resp B/P (MAP) Pulse Ox O2 Delivery O2 Flow Rate FiO2 06/21/19 11:00 103 24 108/75 93 Mechanical Ventilator 100 06/21/19 10:45 99 34 90 06/21/19 10:00 95 25 108/75 96 Mechanical Ventilator 100 06/21/19 09:29 95 30 90 06/21/19 09:00 96 26 132/80 99 Mechanical Ventilator 100 06/21/19 08:00 103 06/21/19 08:00 96.9 96 26 120/85 96 Mechanical Ventilator 100 06/21/19 08:00 100 06/21/19 07:01 103 34 100 06/21/19 07:00 103 28 113/32 80 Mechanical Ventilator 06/21/19 06:00 97 27 108/72 91 Mechanical Ventilator 06/21/19 05:24 101 29 70 06/21/19 05:00 84 29 115/69 93 Mechanical Ventilator 06/21/19 04:00 Mechanical Ventilator 06/21/19 04:00 101 06/21/19 04:00 70 06/21/19 04:00 97.0 94 29 101/73 94 Mechanical Ventilator 06/21/19 03:00 82 29 114/75 92 Mechanical Ventilator 06/21/19 02:40 88 28 70 06/21/19 02:00 92 27 104/65 93 Mechanical Ventilator 06/21/19 01:00 90 27 114/72 92 Mechanical Ventilator 06/21/19 00:59 96 26 70 06/21/19 00:00 Mechanical Ventilator 06/21/19 00:00 97.5 79 24 125/80 94 Mechanical Ventilator 06/21/19 00:00 82 06/20/19 23:54 95 30 70 06/20/19 23:00 79 28 121/74 96 Mechanical Ventilator 06/20/19 22:00 83 29 113/78 94 Mechanical Ventilator 06/20/19 21:00 83 31 122/68 94 Mechanical Ventilator 06/20/19 20:56 84 32 70 06/20/19 20:00 70 06/20/19 20:00 75 06/20/19 20:00 Mechanical Ventilator 06/20/19 20:00 98.0 85 31 114/71 94 Mechanical Ventilator 06/20/19 19:31 87 34 70 06/20/19 19:00 83 29 116/72 94 Mechanical Ventilator 06/20/19 18:00 85 30 116/76 93 Mechanical Ventilator 93 06/20/19 17:19 82 31 70 06/20/19 17:00 83 34 124/75 93 Mechanical Ventilator 86 06/20/19 16:00 100 06/20/19 16:00 83 06/20/19 16:00 Mechanical Ventilator 06/20/19 16:00 97.6 82 34 115/71 93 Mechanical Ventilator 72 06/20/19 15:19 81 38 70 06/20/19 15:00 84 36 113/75 92 Mechanical Ventilator 06/20/19 14:15 81 36 127/67 93 Mechanical Ventilator 06/20/19 14:00 86 31 125/73 89 Mechanical Ventilator 06/20/19 14:00 127/67 06/20/19 13:45 82 36 124/81 93 Mechanical Ventilator 06/20/19 13:30 83 35 122/71 93 Mechanical Ventilator 06/20/19 13:15 84 35 127/79 93 Mechanical Ventilator 70 06/20/19 13:06 81 36 70 06/20/19 13:00 84 40 129/82 92 Mechanical Ventilator 70 06/20/19 13:00 129/82 06/20/19 12:00 97.2 83 37 127/92 95 Mechanical Ventilator 70 06/20/19 12:00 Mechanical Ventilator 06/20/19 12:00 130/76 06/20/19 12:00 70 06/20/19 11:39 81 06/20/19 11:30 82 36 123/74 95 Mechanical Ventilator 70 Height (Feet): 5 Height (Inches): 8.00 Weight (Pounds): 210 HEENT: status post trach Respiratory/Chest: lungs clear Cardiovascular: normal rate, regular rhythm, no gallop/murmur Abdomen: soft, non tender, other - GT Extremities: other - + edema, right IJ catheter Skin: ulcers - right heel ulcer Laboratory Tests Test 06/21/19 04:40 06/21/19 10:55 White Blood Count 13.8 K/UL (4.8-10.8) H Red Blood Count 2.80 M/UL (4.70-6.10) L Hemoglobin 8.1 G/DL (14.2-18.0) L Hematocrit 24.7 % (42.0-52.0) L Mean Corpuscular Volume 88 FL (80-99) Mean Corpuscular Hemoglobin 29.0 PG (27.0-31.0) Mean Corpuscular Hemoglobin Concent 32.8 G/DL (32.0-36.0) Red Cell Distribution Width 16.5 % (11.6-14.8) H Platelet Count 62 K/UL (150-450) L Mean Platelet Volume 7.9 FL (6.5-10.1) Neutrophils (%) (Auto) % (45.0-75.0) Lymphocytes (%) (Auto) % (20.0-45.0) Monocytes (%) (Auto) % (1.0-10.0) Eosinophils (%) (Auto) % (0.0-3.0) Basophils (%) (Auto) % (0.0-2.0) Differential Total Cells Counted 100 Neutrophils % (Manual) 76 % (45-75) H Lymphocytes % (Manual) 21 % (20-45) Monocytes % (Manual) 2 % (1-10) Eosinophils % (Manual) 1 % (0-3) Basophils % (Manual) 0 % (0-2) Band Neutrophils 0 % (0-8) Platelet Estimate Decreased L Platelet Morphology Normal Anisocytosis 1+ Erythrocyte Sedimentation Rate 126 MM/HR (0-20) H Sodium Level 142 MMOL/L (136-145) Potassium Level 4.1 MMOL/L (3.5-5.1) Chloride Level 110 MMOL/L (98-107) H Carbon Dioxide Level 23 MMOL/L (21-32) Anion Gap 9 mmol/L (5-15) Blood Urea Nitrogen 12 mg/dL (7-18) Creatinine 0.9 MG/DL (0.55-1.30) Estimat Glomerular Filtration Rate mL/min (>60) Glucose Level 128 MG/DL (74-106) H Calcium Level 8.7 MG/DL (8.5-10.1) Total Bilirubin 0.5 MG/DL (0.2-1.0) Aspartate Amino Transf (AST/SGOT) 29 U/L (15-37) Alanine Aminotransferase (ALT/SGPT) 23 U/L (12-78) Alkaline Phosphatase 115 U/L (46-116) C-Reactive Protein, Quantitative 15.7 mg/dL (0.00-0.90) H Total Protein 6.4 G/DL (6.4-8.2) Albumin 1.5 G/DL (3.4-5.0) L Globulin 4.9 g/dL Albumin/Globulin Ratio 0.3 (1.0-2.7) L Lipase 116 U/L (73-393) Hepatitis A IgM Antibody Pending Hepatitis B Surface Antigen Pending Hepatitis B Core IgM Antibody Pending Hepatitis C Antibody Pending Arterial Blood pH 7.345 (7.350-7.450) Arterial Blood Partial Pressure CO2 38.3 mmHg (35.0-45.0) Arterial Blood Partial Pressure O2 64.1 mmHg (75.0-100.0) L Arterial Blood HCO3 20.4 mmol/L (22.0-26.0) L Arterial Blood Oxygen Saturation 90.7 % (95-100) L Arterial Blood Base Excess -4.8 (-2-2) L Balta Test Positive Current Medications Medications (Trade) Dose Ordered Sig/Derrick Route PRN Reason Start Time Stop Time Status Last Admin Dose Admin Ceftriaxone Sodium 1 gm/ Dextrose 55 ml @ 110 mls/hr DAILY IVPB 06/20/19 15:00 06/27/19 14:59 06/21/19 09:08 Chlorhexidine Gluconate (Gwendolyn-Hex 2%) 1 applic DAILY@2000 TOPIC 06/18/19 20:00 07/18/19 19:59 06/20/19 20:20 Dextrose (Dextrose 50%) 25 ml Q30M PRN IV Hypoglycemia 06/17/19 08:00 07/17/19 07:59 Dextrose (Dextrose 50%) 50 ml Q30M PRN IV Hypoglycemia 06/17/19 08:00 07/17/19 07:59 Dextrose/Sodium Chloride 1,000 ml @ 25 mls/hr Q24H IV 06/19/19 15:00 07/19/19 14:59 06/20/19 14:37 Insulin Aspart (NovoLOG) BEFORE MEALS AND HS SUBQ 06/17/19 11:30 07/17/19 11:29 06/21/19 05:47 Levetiracetam (Keppra) 1,000 mg Q12HR GT 06/19/19 21:00 07/19/19 20:59 06/21/19 09:08 Lorazepam (Ativan 2mg/ml 1ml) 1 mg Q2H PRN IV For Seizures 06/19/19 14:45 06/26/19 14:44 06/19/19 20:43 Norepinephrine Bitartrate 4 mg/ Dextrose 250 ml @ 0 mls/hr Q24H IV 06/17/19 20:30 07/17/19 20:29 06/20/19 02:41 Octreotide Acetate 500 mcg/ Sodium Chloride 500 ml @ 50 mls/hr Q10H IV 06/20/19 23:15 07/20/19 23:14 06/21/19 10:33 Pantoprazole (Protonix) 40 mg DAILY IVP 06/18/19 17:30 07/18/19 17:29 06/21/19 09:08 Rosalinda Guerrero MD Jun 21, 2019 11:25"
--- NOTE | 2019-06-21 13:00 | Surgery Progress Note ---
Surgery Progress Note Subjective Additional Comments off pressors. on fluids wbc improved ESR and CRP noted ill appearing prognosis guarded Objective Last 24 Hour Vital Signs Date Time Temp Pulse Resp B/P (MAP) Pulse Ox O2 Delivery O2 Flow Rate FiO2 06/21/19 12:42 101 31 70 06/21/19 12:00 97.7 98 28 115/69 95 Mechanical Ventilator 90 06/21/19 12:00 90 06/21/19 11:00 103 24 108/75 93 Mechanical Ventilator 100 06/21/19 10:45 99 34 90 06/21/19 10:00 95 25 108/75 96 Mechanical Ventilator 100 06/21/19 09:29 95 30 90 06/21/19 09:00 96 26 132/80 99 Mechanical Ventilator 100 06/21/19 08:00 103 06/21/19 08:00 96.9 96 26 120/85 96 Mechanical Ventilator 100 06/21/19 08:00 100 06/21/19 07:01 103 34 100 06/21/19 07:00 103 28 113/32 80 Mechanical Ventilator 06/21/19 06:00 97 27 108/72 91 Mechanical Ventilator 06/21/19 05:24 101 29 70 06/21/19 05:00 84 29 115/69 93 Mechanical Ventilator 06/21/19 04:00 Mechanical Ventilator 06/21/19 04:00 101 06/21/19 04:00 70 06/21/19 04:00 97.0 94 29 101/73 94 Mechanical Ventilator 06/21/19 03:00 82 29 114/75 92 Mechanical Ventilator 06/21/19 02:40 88 28 70 06/21/19 02:00 92 27 104/65 93 Mechanical Ventilator 06/21/19 01:00 90 27 114/72 92 Mechanical Ventilator 06/21/19 00:59 96 26 70 06/21/19 00:00 Mechanical Ventilator 06/21/19 00:00 97.5 79 24 125/80 94 Mechanical Ventilator 06/21/19 00:00 82 06/20/19 23:54 95 30 70 06/20/19 23:00 79 28 121/74 96 Mechanical Ventilator 06/20/19 22:00 83 29 113/78 94 Mechanical Ventilator 06/20/19 21:00 83 31 122/68 94 Mechanical Ventilator 06/20/19 20:56 84 32 70 06/20/19 20:00 70 06/20/19 20:00 75 06/20/19 20:00 Mechanical Ventilator 06/20/19 20:00 98.0 85 31 114/71 94 Mechanical Ventilator 06/20/19 19:31 87 34 70 06/20/19 19:00 83 29 116/72 94 Mechanical Ventilator 06/20/19 18:00 85 30 116/76 93 Mechanical Ventilator 93 06/20/19 17:19 82 31 70 06/20/19 17:00 83 34 124/75 93 Mechanical Ventilator 86 06/20/19 16:00 100 06/20/19 16:00 83 06/20/19 16:00 Mechanical Ventilator 06/20/19 16:00 97.6 82 34 115/71 93 Mechanical Ventilator 72 06/20/19 15:19 81 38 70 06/20/19 15:00 84 36 113/75 92 Mechanical Ventilator 06/20/19 14:15 81 36 127/67 93 Mechanical Ventilator 06/20/19 14:00 86 31 125/73 89 Mechanical Ventilator 06/20/19 14:00 127/67 06/20/19 13:45 82 36 124/81 93 Mechanical Ventilator 06/20/19 13:30 83 35 122/71 93 Mechanical Ventilator 06/20/19 13:15 84 35 127/79 93 Mechanical Ventilator 70 06/20/19 13:06 81 36 70 06/20/19 13:00 84 40 129/82 92 Mechanical Ventilator 70 06/20/19 13:00 129/82 I&O Intake and Output 06/20/19 06/21/19 18:59 06:59 Intake Total 604.58 ml 635.8 ml Output Total 1210 ml 575 ml Balance -605.42 ml 60.8 ml Free Water 120 ml 50 ml IV Total 484.58 ml 585.8 ml Output Urine Total 1210 ml 575 ml Dressing: saturated Wound: other Drains: other Cardiovascular: RSR Respiratory: decreased breath sounds Abdomen: soft, present bowel sounds, non-distended Extremities: no cyanosis, other Laboratory Tests Test 06/21/19 04:40 06/21/19 10:55 White Blood Count 13.8 K/UL (4.8-10.8) H Red Blood Count 2.80 M/UL (4.70-6.10) L Hemoglobin 8.1 G/DL (14.2-18.0) L Hematocrit 24.7 % (42.0-52.0) L Mean Corpuscular Volume 88 FL (80-99) Mean Corpuscular Hemoglobin 29.0 PG (27.0-31.0) Mean Corpuscular Hemoglobin Concent 32.8 G/DL (32.0-36.0) Red Cell Distribution Width 16.5 % (11.6-14.8) H Platelet Count 62 K/UL (150-450) L Mean Platelet Volume 7.9 FL (6.5-10.1) Neutrophils (%) (Auto) % (45.0-75.0) Lymphocytes (%) (Auto) % (20.0-45.0) Monocytes (%) (Auto) % (1.0-10.0) Eosinophils (%) (Auto) % (0.0-3.0) Basophils (%) (Auto) % (0.0-2.0) Differential Total Cells Counted 100 Neutrophils % (Manual) 76 % (45-75) H Lymphocytes % (Manual) 21 % (20-45) Monocytes % (Manual) 2 % (1-10) Eosinophils % (Manual) 1 % (0-3) Basophils % (Manual) 0 % (0-2) Band Neutrophils 0 % (0-8) Platelet Estimate Decreased L Platelet Morphology Normal Anisocytosis 1+ Erythrocyte Sedimentation Rate 126 MM/HR (0-20) H Sodium Level 142 MMOL/L (136-145) Potassium Level 4.1 MMOL/L (3.5-5.1) Chloride Level 110 MMOL/L (98-107) H Carbon Dioxide Level 23 MMOL/L (21-32) Anion Gap 9 mmol/L (5-15) Blood Urea Nitrogen 12 mg/dL (7-18) Creatinine 0.9 MG/DL (0.55-1.30) Estimat Glomerular Filtration Rate mL/min (>60) Glucose Level 128 MG/DL (74-106) H Calcium Level 8.7 MG/DL (8.5-10.1) Total Bilirubin 0.5 MG/DL (0.2-1.0) Aspartate Amino Transf (AST/SGOT) 29 U/L (15-37) Alanine Aminotransferase (ALT/SGPT) 23 U/L (12-78) Alkaline Phosphatase 115 U/L (46-116) C-Reactive Protein, Quantitative 15.7 mg/dL (0.00-0.90) H Total Protein 6.4 G/DL (6.4-8.2) Albumin 1.5 G/DL (3.4-5.0) L Globulin 4.9 g/dL Albumin/Globulin Ratio 0.3 (1.0-2.7) L Lipase 116 U/L (73-393) Hepatitis A IgM Antibody Pending Hepatitis B Surface Antigen Pending Hepatitis B Core IgM Antibody Pending Hepatitis C Antibody Pending Arterial Blood pH 7.345 (7.350-7.450) Arterial Blood Partial Pressure CO2 38.3 mmHg (35.0-45.0) Arterial Blood Partial Pressure O2 64.1 mmHg (75.0-100.0) L Arterial Blood HCO3 20.4 mmol/L (22.0-26.0) L Arterial Blood Oxygen Saturation 90.7 % (95-100) L Arterial Blood Base Excess -4.8 (-2-2) L Balta Test Positive Plan Problems: (1) Leukocytosis (2) Decubitus skin ulcer Assessment & Plan: Pt presented on admission with multiple pressure injuries. Resolving pressure injury posterior neck under collar of trach. Base of wound has mostly pink epithelial with scattered small partial thickness wounds (L)2cm x (W)1.6cm. Tracheal stoma noted to have denuded area R side of stoma.. Resolving full thickness sacral pressure injury L sacrum (L)2.5cm x (W)1cm x (D) 0.2cm.[place] granulation at base of wound . Inferior but in close proximity to L sacral wound ,pt noted to have darker skin tone with scattered areas that are fluctuant and partially opened with small amt of sanguineous exudate noted (L) 9cm x (W)11.5cm. Resolving pressure injury noted to base of scrotum . Base of wound pink and dry (L)1cm x (W)0.8cm. Unstageable pressure injury noted to R heel extending into plantar aspect of R heel.At plantar aspect of heel soft necrosis noted that is oozing small amt brown purulent exudate(L)3cm x (W)3.5cm. Surrounding the area of necrosis, wound is black with fluctuance and marginal erythema along edges. Wound is malodorous.(L)8cm x (W)9.5cm. L heel is boggy with non-blanching erythema. Tx.Plan: Apply Cavilon Skin Barrier to posterior neck. Cover with Optifoam drsg. Change every 3 days and prn. Apply Moisture Barrier Paste to sacrum. Cover with Optifoam drsg. Change every 3days and prn. Apply Moisture Barrier Paste to Scrotum with each incontinence care. Apply Betadine to R heel . Cover with ABD pad and wrap with kerlix Daily and prn. Apply Cavilon Skin Barrier to R heel. Cover with Optifoam drsg. Change every 7 days and prn. APM/LARISSA Mattress overlay. Reposition at least every 2hours or as tolerated. Off-load heels with pillow. (3) Severe sepsis Assessment & Plan: Leukocytosis, lactic acidosis, hyperkalemia, hyponatremia. Severe sepsis Fluid resuscitation IV antibiotics as per infectious disease Trend labs Wound care as above We will follow with recommendations Thank you for this consultation Abdoul Lucas Jun 21, 2019 13:00
--- NOTE | 2019-06-21 14:16 | Nephrology Progress Note ---
Assessment/Plan Problem List: (1) POPPY (acute kidney injury) (2) Hyponatremia (3) Renal insufficiency Plan improving Na and poppy, reducing iv fluid, still with poor prognosis with severely low albumin ventilator dependent seizures vs twitching, now npo Subjective ROS Limited/Unobtainable: Yes Objective Objective Last 24 Hour Vital Signs Date Time Temp Pulse Resp B/P (MAP) Pulse Ox O2 Delivery O2 Flow Rate FiO2 06/21/19 13:00 101 30 108/67 95 Mechanical Ventilator 70 06/21/19 12:42 101 31 70 06/21/19 12:00 Mechanical Ventilator 06/21/19 12:00 98 06/21/19 12:00 97.7 98 28 115/69 95 Mechanical Ventilator 90 06/21/19 12:00 90 06/21/19 11:00 103 24 108/75 93 Mechanical Ventilator 100 06/21/19 10:45 99 34 90 06/21/19 10:00 95 25 108/75 96 Mechanical Ventilator 100 06/21/19 09:29 95 30 90 06/21/19 09:00 96 26 132/80 99 Mechanical Ventilator 100 06/21/19 08:00 Mechanical Ventilator 06/21/19 08:00 103 06/21/19 08:00 96.9 96 26 120/85 96 Mechanical Ventilator 100 06/21/19 08:00 100 06/21/19 07:01 103 34 100 06/21/19 07:00 103 28 113/32 80 Mechanical Ventilator 06/21/19 06:00 97 27 108/72 91 Mechanical Ventilator 06/21/19 05:24 101 29 70 06/21/19 05:00 84 29 115/69 93 Mechanical Ventilator 06/21/19 04:00 Mechanical Ventilator 06/21/19 04:00 101 06/21/19 04:00 70 06/21/19 04:00 97.0 94 29 101/73 94 Mechanical Ventilator 06/21/19 03:00 82 29 114/75 92 Mechanical Ventilator 06/21/19 02:40 88 28 70 06/21/19 02:00 92 27 104/65 93 Mechanical Ventilator 06/21/19 01:00 90 27 114/72 92 Mechanical Ventilator 06/21/19 00:59 96 26 70 06/21/19 00:00 Mechanical Ventilator 06/21/19 00:00 97.5 79 24 125/80 94 Mechanical Ventilator 06/21/19 00:00 82 06/20/19 23:54 95 30 70 06/20/19 23:00 79 28 121/74 96 Mechanical Ventilator 06/20/19 22:00 83 29 113/78 94 Mechanical Ventilator 06/20/19 21:00 83 31 122/68 94 Mechanical Ventilator 06/20/19 20:56 84 32 70 06/20/19 20:00 70 06/20/19 20:00 75 06/20/19 20:00 Mechanical Ventilator 06/20/19 20:00 98.0 85 31 114/71 94 Mechanical Ventilator 06/20/19 19:31 87 34 70 06/20/19 19:00 83 29 116/72 94 Mechanical Ventilator 06/20/19 18:00 85 30 116/76 93 Mechanical Ventilator 93 06/20/19 17:19 82 31 70 06/20/19 17:00 83 34 124/75 93 Mechanical Ventilator 86 06/20/19 16:00 100 06/20/19 16:00 83 06/20/19 16:00 Mechanical Ventilator 06/20/19 16:00 97.6 82 34 115/71 93 Mechanical Ventilator 72 06/20/19 15:19 81 38 70 06/20/19 15:00 84 36 113/75 92 Mechanical Ventilator Intake and Output 06/20/19 06/21/19 18:59 06:59 Intake Total 604.58 ml 635.8 ml Output Total 1210 ml 575 ml Balance -605.42 ml 60.8 ml Free Water 120 ml 50 ml IV Total 484.58 ml 585.8 ml Output Urine Total 1210 ml 575 ml Laboratory Tests 06/21/19 04:40: White Blood Count 13.8H, Red Blood Count 2.80L, Hemoglobin 8.1L, Hematocrit 24.7L, Mean Corpuscular Volume 88, Mean Corpuscular Hemoglobin 29.0, Mean Corpuscular Hemoglobin Concent 32.8, Red Cell Distribution Width 16.5H, Platelet Count 62L, Mean Platelet Volume 7.9, Neutrophils (%) (Auto) , Lymphocytes (%) (Auto) , Monocytes (%) (Auto) , Eosinophils (%) (Auto) , Basophils (%) (Auto) , Differential Total Cells Counted 100, Neutrophils % ( Manual) 76H, Lymphocytes % (Manual) 21, Monocytes % (Manual) 2, Eosinophils % ( Manual) 1, Basophils % (Manual) 0, Band Neutrophils 0, Platelet Estimate DecreasedL, Platelet Morphology Normal, Anisocytosis 1+, Erythrocyte Sedimentation Rate 126H, Sodium Level 142, Potassium Level 4.1, Chloride Level 110H, Carbon Dioxide Level 23, Anion Gap 9, Blood Urea Nitrogen 12, Creatinine 0.9, Estimat Glomerular Filtration Rate , Glucose Level 128H, Calcium Level 8.7 , Total Bilirubin 0.5, Aspartate Amino Transf (AST/SGOT) 29, Alanine Aminotransferase (ALT/SGPT) 23, Alkaline Phosphatase 115, C-Reactive Protein, Quantitative 15.7H, Total Protein 6.4, Albumin 1.5L, Globulin 4.9, Albumin/ Globulin Ratio 0.3L, Lipase 116, Hepatitis A IgM Antibody [Pending], Hepatitis B Surface Antigen [Pending], Hepatitis B Core IgM Antibody [Pending], Hepatitis C Antibody [Pending] 06/21/19 10:55: Arterial Blood pH 7.345L, Arterial Blood Partial Pressure CO2 38.3, Arterial Blood Partial Pressure O2 64.1L, Arterial Blood HCO3 20.4L, Arterial Blood Oxygen Saturation 90.7L, Arterial Blood Base Excess -4.8L, Balta Test Positive Height (Feet): 5 Height (Inches): 8.00 Weight (Pounds): 210 General Appearance: other - Obtunded on the ventilator having facial twitching Cardiovascular: regular rhythm Respiratory/Chest: rhonchi - bilaterally Abdomen: non tender Extremities: trace edema Neurologic: unresponsive Nik Deras MD Jun 21, 2019 14:16
[2019-06-21] MEDS: D5NS 1,000 ML IV SCH (14:49)
[2019-06-21] MEDS ORDERED: NS 275ml ONE ×2 (16:11→17:08)
[2019-06-21] MEDS ORDERED: D5NS 1000ml IV ONE (16:11)
[2019-06-21] MEDS ORDERED: Tubing IV Secondary IV ONE ×2 (16:11→17:08)
[2019-06-21] MEDS ORDERED: NS 500ML ONE (17:08)
[2019-06-21] MEDS ORDERED: Tubing Blood Filter IV ONE (17:08)
[2019-06-21] MEDS: Dyna-Hex 2% Top Sol 2oz TOPIC SCH (21:11)
[2019-06-22] VITALS (19 sets, daily range): BP systolic 99–119; BP diastolic 53–73
[2019-06-22] MEDS: Octreotide Acetate 500 MCG in Sodium Chloride 499 ML IV SCH ×2 (05:13→15:19)
--- NOTE | 2019-06-22 05:15 | Progress Note ---
DATE: 06/20/2019 CARDIOLOGY PROGRESS NOTE Late entry for June 20, 2019. SUBJECTIVE: The patient remains in the intensive care unit. His pressors have been tapered off. Blood pressure parameters are somewhat tenuous. The patient had a negative EEG; however, has some facial twitching noted. He remains mechanically ventilated. OBJECTIVE: VITAL SIGNS: Blood pressure 113/75, pulse 84, and respiratory rate 36. LUNGS: Thin secretions from trach site. Bilateral breath sounds with rhonchi. HEART: Regular rhythm and rate. Normal S1 and S2. ABDOMEN: Soft. EXTREMITIES: There is no edema. LABORATORY DATA: White count 19.6 and hemoglobin 8.8. Sodium 138, potassium 4.5, bicarb 21, BUN 16, and creatinine 1. Albumin 1.8. IMPRESSION: 1. Hypothermia, resolved. 2. Sepsis and hypovolemia with shock, improved. 3. Severe protein-calorie malnutrition. 4. Anemia. 5. Gram-negative pneumonia. 6. Respiratory failure. 7. Acute myocardial ischemia. PLAN: 1. Volume support. 2. Antimicrobials. 3. Ventilator support. 4. Respiratory hygiene. 5. DVT prophylaxis. 6. Protein supplement. 7. Maintain body temperature above 97. [place] M.D. : KYM JOB#: [id number] CC:
[2019-06-22] MEDS: NovoLOG Insulin Flexpen SUBQ SCH ×4 (05:42→21:04)
--- NOTE | 2019-06-22 05:45 | Progress Note ---
DATE: 06/21/2019 CARDIOLOGY PROGRESS NOTE SUBJECTIVE: The patient remains in the intensive care unit. Condition remains critical. Prognosis remains guarded. The patient is off pressors for the last 48 hours. He remains on ventilator support. Temperature is now in the range of 97 Fahrenheit. No signs of bleeding. Monitored rhythm, sinus. OBJECTIVE: VITAL SIGNS: Blood pressure 115/69, heart rate 84 to 103, respiratory rate 27 to 34, and temperature 97 to 98 degrees. HEENT: Temporal wasting. Dry mucous membranes. Thin trach secretions. LUNGS: Bilateral rhonchi. HEART: Regular rhythm and rate. Normal S1 and S2 with a 1/6 systolic murmur at base. ABDOMEN: Soft. There is a G-tube. EXTREMITIES: There is no edema. LABORATORY FINDINGS: White count down to 13.8 and hemoglobin 8.1. Sodium 143, potassium 4.1, bicarb 23, BUN 12, and creatinine 0.9. Albumin 1.5. IMPRESSION: 1. Recovered shock. 2. Rehydrated with resolved hypovolemia. 3. Sepsis, improving. 4. Anemia, multifactorial. 5. Ventilator-dependent respiratory failure. 6. Acute myocardial ischemia. 7. Chronic diastolic congestive heart failure, recovered. 8. Hypothermia. 9. Severe protein-calorie malnutrition. PLAN: 1. Protein supplement. 2. Nutritional support by feeding tube. 3. Ventilator support. 4. Antimicrobials per Infectious Disease consultants. 5. No need for warming measures at this time. 6. DVT and stress ulcer prophylaxis. 7. Remains off all antihypertensives and antianginals at this time. [place] M.D. : KAYY JOB#: [id number] CC:
[2019-06-22 06:17] LABS: HEMATOCRIT 26.4 % (42.0-52.0); HEMOGLOBIN 8.6 G/DL (14.2-18.0); MEAN CORPUSCULAR VOLUME 89 FL (80-99); PLATELET COUNT 84 K/UL (150-450); RED BLOOD COUNT 2.95 M/UL (4.70-6.10); RED CELL DISTRIBUTION WIDTH 16.9 % (11.6-14.8); WHITE BLOOD COUNT 12.7 K/UL (4.8-10.8)
[2019-06-22 06:36] LABS: AMMONIA 28 umol/L (11-32)
[2019-06-22 06:43] LABS: ALANINE AMINOTRANSFERASE 20 U/L (12-78); ALBUMIN 1.6 G/DL (3.4-5.0); ALBUMIN/GLOBULIN RATIO 0.3 (1.0-2.7); ALKALINE PHOSPHATASE 105 U/L (46-116); ANION GAP 7 mmol/L (5-15); ASPARTATE AMINO TRANSFERASE 19 U/L (15-37); BILIRUBIN,TOTAL 0.5 MG/DL (0.2-1.0); BLOOD UREA NITROGEN 11 mg/dL (7-18); CALCIUM 8.7 MG/DL (8.5-10.1); CARBON DIOXIDE 24 MMOL/L (21-32); CHLORIDE 112 MMOL/L (98-107); POTASSIUM 4.2 MMOL/L (3.5-5.1); SODIUM 143 MMOL/L (136-145)
--- NOTE | 2019-06-22 07:16 | General Progress Note ---
Assessment/Plan Status: stable, unchanged Assessment/Plan: Assessment - Melena/heme (+) stools (none today) - Anemia - Chronic liver disease with thrombocytopenia, possibly portal HTN - Resp failure - s/p trach - dysphagia - s/p PEG - Anoxic encephalopathy, non communicative - bed bound, contracted - poor Px Recommendations - start GTF - f/u hepatitis serologies - PPI - Sandostatin gtt - monitor CBC - discuss with family - Endoscopy once consent obtained Subjective ROS Limited/Unobtainable: No Allergies: Coded Allergies: No Known Allergies (Unverified , 07/04/18) Objective Last 24 Hour Vital Signs Date Time Temp Pulse Resp B/P (MAP) Pulse Ox O2 Delivery O2 Flow Rate FiO2 06/22/19 06:00 73 28 114/61 100 Mechanical Ventilator 70 06/22/19 05:25 69 27 70 06/22/19 05:00 71 27 111/65 100 Mechanical Ventilator 70 06/22/19 04:00 70 06/22/19 04:00 97.9 74 28 119/69 100 Mechanical Ventilator 70 06/22/19 03:16 81 30 70 06/22/19 03:05 74 06/22/19 03:00 77 29 113/69 100 Mechanical Ventilator 70 06/22/19 02:00 78 28 103/71 100 Mechanical Ventilator 70 06/22/19 01:16 72 28 70 06/22/19 01:00 73 27 115/69 100 Mechanical Ventilator 70 06/22/19 00:00 98.9 74 29 118/67 100 Mechanical Ventilator 70 06/22/19 00:00 Mechanical Ventilator 06/21/19 23:40 93 06/21/19 23:11 69 29 70 06/21/19 23:00 71 28 113/66 100 Mechanical Ventilator 70 06/21/19 22:00 77 29 114/69 100 Mechanical Ventilator 70 06/21/19 21:30 75 30 70 06/21/19 21:00 80 30 107/64 99 Mechanical Ventilator 70 06/21/19 20:30 107/64 06/21/19 20:00 70 06/21/19 20:00 Mechanical Ventilator 06/21/19 20:00 98.9 88 31 102/57 98 Mechanical Ventilator 70 06/21/19 19:32 99 06/21/19 19:14 88 33 70 06/21/19 19:00 94 29 117/65 98 Mechanical Ventilator 70 06/21/19 18:00 94 29 111/61 98 Mechanical Ventilator 70 06/21/19 17:18 94 30 70 06/21/19 17:00 96 28 105/68 98 Mechanical Ventilator 70 06/21/19 16:00 98.8 98 32 108/78 98 Mechanical Ventilator 70 06/21/19 16:00 70 06/21/19 16:00 95 06/21/19 15:23 96 33 99 Mechanical Ventilator 60.0 70 06/21/19 15:22 97 34 70 06/21/19 15:00 105 32 121/64 96 Mechanical Ventilator 70 06/21/19 14:00 96 31 109/69 97 Mechanical Ventilator 70 06/21/19 13:00 101 30 108/67 95 Mechanical Ventilator 70 06/21/19 12:42 101 31 70 06/21/19 12:00 Mechanical Ventilator 06/21/19 12:00 98 06/21/19 12:00 97.7 98 28 115/69 95 Mechanical Ventilator 90 06/21/19 12:00 90 06/21/19 11:00 103 24 108/75 93 Mechanical Ventilator 100 06/21/19 10:45 99 34 90 06/21/19 10:00 95 25 108/75 96 Mechanical Ventilator 100 06/21/19 09:29 95 30 90 06/21/19 09:00 96 26 132/80 99 Mechanical Ventilator 100 06/21/19 08:00 Mechanical Ventilator 06/21/19 08:00 103 06/21/19 08:00 96.9 96 26 120/85 96 Mechanical Ventilator 100 06/21/19 08:00 100 Intake and Output 06/21/19 06/22/19 19:00 07:00 Intake Total 1063 ml 828.12 ml Output Total 490 ml 420 ml Balance 573 ml 408.12 ml Free Water 100 ml IV Total 923 ml 778.12 ml Other 40 ml 50 ml Output Urine Total 490 ml 420 ml Laboratory Tests 06/21/19 10:55: Arterial Blood pH 7.345L, Arterial Blood Partial Pressure CO2 38.3, Arterial Blood Partial Pressure O2 64.1L, Arterial Blood HCO3 20.4L, Arterial Blood Oxygen Saturation 90.7L, Arterial Blood Base Excess -4.8L, Balta Test Positive 06/22/19 05:55: White Blood Count 12.7H, Red Blood Count 2.95L, Hemoglobin 8.6L, Hematocrit 26.4L, Mean Corpuscular Volume 89, Mean Corpuscular Hemoglobin 29.1, Mean Corpuscular Hemoglobin Concent 32.6, Red Cell Distribution Width 16.9H, Platelet Count 84L, Mean Platelet Volume 8.6, Neutrophils (%) (Auto) , Lymphocytes (%) (Auto) , Monocytes (%) (Auto) , Eosinophils (%) (Auto) , Basophils (%) (Auto) , Neutrophils % (Manual) [Pending], Lymphocytes % (Manual) [Pending], Platelet Estimate [Pending], Platelet Morphology [Pending], Sodium Level 143, Potassium Level 4.2, Chloride Level 112H, Carbon Dioxide Level 24, Anion Gap 7, Blood Urea Nitrogen 11, Creatinine 1.0, Estimat Glomerular Filtration Rate , Glucose Level 165H, Calcium Level 8.7, Total Bilirubin 0.5, Aspartate Amino Transf (AST/SGOT) 19, Alanine Aminotransferase (ALT/SGPT) 20, Alkaline Phosphatase 105, Ammonia 28, Total Protein 6.6, Albumin 1.6L, Globulin 5.0, Albumin/Globulin Ratio 0.3L Height (Feet): 5 Height (Inches): 8.00 Weight (Pounds): 210 General Appearance: no apparent distress EENT: normal ENT inspection Neck: supple Cardiovascular: normal rate Respiratory/Chest: decreased breath sounds Abdomen: normal bowel sounds, non tender, soft Extremities: non-tender Edgar Esqueda MD Jun 22, 2019 07:16
--- NOTE | 2019-06-22 08:36 | Critical Care Progress Note ---
Assessment/Plan Assessment/Plan chronic respiratory failure multifocal pneumonia hypoxemia sepsis leukocytosis hyponatremia ARF trach GT severe PCM chronic encephalopathy possible colitis PLAN renal and ID evaluation follow up monitor labs closely vent support as is- no wean at present monitor acid base and adjust iv antibiotics and cultures noted and reviewed overnight ICU care reviewed overnight critical and needs close monitoring in ICU monitor imaging for change monitor effusion monitor cultures off load and monitor skin exam all care reviewed in detail monitor for seizures as prior close follow up of all parameters continue to optimize but prognosis very poor medications/laboratory data/nursing notes/ICU care reviewed in detail note reviewed and edited care discussed with RN and RT ICU time spent 43 minutes Critical Care - Subjective Interval Events: remains very ill hypotensive obtunded warming blanket noted ROS Limited/Unobtainable: Yes Condition: critical EKG Rhythm: Sinus Rhythm I&O: Intake and Output 06/21/19 06/22/19 19:00 07:00 Intake Total 1063 ml 903.12 ml Output Total 490 ml 440 ml Balance 573 ml 463.12 ml Free Water 100 ml IV Total 923 ml 853.12 ml Other 40 ml 50 ml Output Urine Total 490 ml 440 ml Critical Care - Objective Last 24 Hour Vital Signs Date Time Temp Pulse Resp B/P (MAP) Pulse Ox O2 Delivery O2 Flow Rate FiO2 06/22/19 08:00 60 06/22/19 08:00 97.6 71 27 105/69 99 Mechanical Ventilator 60 06/22/19 07:38 77 26 60 06/22/19 07:00 70 20 113/70 100 Mechanical Ventilator 70 06/22/19 06:00 73 28 114/61 100 Mechanical Ventilator 70 06/22/19 05:25 69 27 70 06/22/19 05:00 71 27 111/65 100 Mechanical Ventilator 70 06/22/19 04:00 70 06/22/19 04:00 97.9 74 28 119/69 100 Mechanical Ventilator 70 06/22/19 03:16 81 30 70 06/22/19 03:05 74 06/22/19 03:00 77 29 113/69 100 Mechanical Ventilator 70 06/22/19 02:00 78 28 103/71 100 Mechanical Ventilator 70 06/22/19 01:16 72 28 70 06/22/19 01:00 73 27 115/69 100 Mechanical Ventilator 70 06/22/19 00:00 98.9 74 29 118/67 100 Mechanical Ventilator 70 06/22/19 00:00 Mechanical Ventilator 06/21/19 23:40 93 06/21/19 23:11 69 29 70 06/21/19 23:00 71 28 113/66 100 Mechanical Ventilator 70 06/21/19 22:00 77 29 114/69 100 Mechanical Ventilator 70 06/21/19 21:30 75 30 70 06/21/19 21:00 80 30 107/64 99 Mechanical Ventilator 70 06/21/19 20:30 107/64 06/21/19 20:00 70 06/21/19 20:00 Mechanical Ventilator 06/21/19 20:00 98.9 88 31 102/57 98 Mechanical Ventilator 70 06/21/19 19:32 99 06/21/19 19:14 88 33 70 06/21/19 19:00 94 29 117/65 98 Mechanical Ventilator 70 06/21/19 18:00 94 29 111/61 98 Mechanical Ventilator 70 06/21/19 17:18 94 30 70 06/21/19 17:00 96 28 105/68 98 Mechanical Ventilator 70 06/21/19 16:00 98.8 98 32 108/78 98 Mechanical Ventilator 70 06/21/19 16:00 70 06/21/19 16:00 Mechanical Ventilator 06/21/19 16:00 95 06/21/19 15:23 96 33 99 Mechanical Ventilator 60.0 70 06/21/19 15:22 97 34 70 06/21/19 15:00 105 32 121/64 96 Mechanical Ventilator 70 06/21/19 14:00 96 31 109/69 97 Mechanical Ventilator 70 06/21/19 13:00 101 30 108/67 95 Mechanical Ventilator 70 06/21/19 12:42 101 31 70 06/21/19 12:00 Mechanical Ventilator 06/21/19 12:00 98 06/21/19 12:00 97.7 98 28 115/69 95 Mechanical Ventilator 90 06/21/19 12:00 90 06/21/19 11:00 103 24 108/75 93 Mechanical Ventilator 100 06/21/19 10:45 99 34 90 06/21/19 10:00 95 25 108/75 96 Mechanical Ventilator 100 06/21/19 09:29 95 30 90 06/21/19 09:00 96 26 132/80 99 Mechanical Ventilator 100 Labs: Labs Test 06/19/19 20:25 06/20/19 04:20 06/21/19 04:40 06/21/19 10:55 Vancomycin Level Trough 15.6 ug/mL (5.0-12.0) White Blood Count 19.6 K/UL (4.8-10.8) 13.8 K/UL (4.8-10.8) Red Blood Count 3.08 M/UL (4.70-6.10) 2.80 M/UL (4.70-6.10) Hemoglobin 8.8 G/DL (14.2-18.0) 8.1 G/DL (14.2-18.0) Hematocrit 27.2 % (42.0-52.0) 24.7 % (42.0-52.0) Mean Corpuscular Volume 88 FL (80-99) 88 FL (80-99) Mean Corpuscular Hemoglobin 28.8 PG (27.0-31.0) 29.0 PG (27.0-31.0) Mean Corpuscular Hemoglobin Concent 32.6 G/DL (32.0-36.0) 32.8 G/DL (32.0-36.0) Red Cell Distribution Width 16.6 % (11.6-14.8) 16.5 % (11.6-14.8) Platelet Count 71 K/UL (150-450) 62 K/UL (150-450) Mean Platelet Volume 7.7 FL (6.5-10.1) 7.9 FL (6.5-10.1) Neutrophils (%) (Auto) % (45.0-75.0) % (45.0-75.0) Lymphocytes (%) (Auto) % (20.0-45.0) % (20.0-45.0) Monocytes (%) (Auto) % (1.0-10.0) % (1.0-10.0) Eosinophils (%) (Auto) % (0.0-3.0) % (0.0-3.0) Basophils (%) (Auto) % (0.0-2.0) % (0.0-2.0) Differential Total Cells Counted 100 100 Neutrophils % (Manual) 82 % (45-75) 76 % (45-75) Lymphocytes % (Manual) 11 % (20-45) 21 % (20-45) Monocytes % (Manual) 6 % (1-10) 2 % (1-10) Eosinophils % (Manual) 0 % (0-3) 1 % (0-3) Basophils % (Manual) 0 % (0-2) 0 % (0-2) Band Neutrophils 1 % (0-8) 0 % (0-8) Nucleated Red Blood Cells 3 /100 WBC Platelet Estimate Decreased Decreased Platelet Morphology Normal Normal Hypochromasia 2+ Anisocytosis 1+ 1+ Spherocytes 1+ Sodium Level 138 MMOL/L (136-145) 142 MMOL/L (136-145) Potassium Level 4.5 MMOL/L (3.5-5.1) 4.1 MMOL/L (3.5-5.1) Chloride Level 109 MMOL/L (98-107) 110 MMOL/L (98-107) Carbon Dioxide Level 21 MMOL/L (21-32) 23 MMOL/L (21-32) Anion Gap 8 mmol/L (5-15) 9 mmol/L (5-15) Blood Urea Nitrogen 16 mg/dL (7-18) 12 mg/dL (7-18) Creatinine 1.0 MG/DL (0.55-1.30) 0.9 MG/DL (0.55-1.30) Estimat Glomerular Filtration Rate mL/min (>60) mL/min (>60) Glucose Level 184 MG/DL (74-106) 128 MG/DL (74-106) Calcium Level 8.6 MG/DL (8.5-10.1) 8.7 MG/DL (8.5-10.1) Total Bilirubin 0.4 MG/DL (0.2-1.0) 0.5 MG/DL (0.2-1.0) Aspartate Amino Transf (AST/SGOT) 24 U/L (15-37) 29 U/L (15-37) Alanine Aminotransferase (ALT/SGPT) 25 U/L (12-78) 23 U/L (12-78) Alkaline Phosphatase 163 U/L (46-116) 115 U/L (46-116) Total Protein 7.3 G/DL (6.4-8.2) 6.4 G/DL (6.4-8.2) Albumin 1.8 G/DL (3.4-5.0) 1.5 G/DL (3.4-5.0) Globulin 5.5 g/dL 4.9 g/dL Albumin/Globulin Ratio 0.3 (1.0-2.7) 0.3 (1.0-2.7) Erythrocyte Sedimentation Rate 126 MM/HR (0-20) C-Reactive Protein, Quantitative 15.7 mg/dL (0.00-0.90) Lipase 116 U/L (73-393) Arterial Blood pH 7.345 (7.350-7.450) Arterial Blood Partial Pressure CO2 38.3 mmHg (35.0-45.0) Arterial Blood Partial Pressure O2 64.1 mmHg (75.0-100.0) Arterial Blood HCO3 20.4 mmol/L (22.0-26.0) Arterial Blood Oxygen Saturation 90.7 % (95-100) Arterial Blood Base Excess -4.8 (-2-2) Balta Test Positive Test 06/22/19 05:55 White Blood Count 12.7 K/UL (4.8-10.8) Red Blood Count 2.95 M/UL (4.70-6.10) Hemoglobin 8.6 G/DL (14.2-18.0) Hematocrit 26.4 % (42.0-52.0) Mean Corpuscular Volume 89 FL (80-99) Mean Corpuscular Hemoglobin 29.1 PG (27.0-31.0) Mean Corpuscular Hemoglobin Concent 32.6 G/DL (32.0-36.0) Red Cell Distribution Width 16.9 % (11.6-14.8) Platelet Count 84 K/UL (150-450) Mean Platelet Volume 8.6 FL (6.5-10.1) Neutrophils (%) (Auto) % (45.0-75.0) Lymphocytes (%) (Auto) % (20.0-45.0) Monocytes (%) (Auto) % (1.0-10.0) Eosinophils (%) (Auto) % (0.0-3.0) Basophils (%) (Auto) % (0.0-2.0) Differential Total Cells Counted 100 Neutrophils % (Manual) 74 % (45-75) Lymphocytes % (Manual) 18 % (20-45) Monocytes % (Manual) 5 % (1-10) Eosinophils % (Manual) 3 % (0-3) Basophils % (Manual) 0 % (0-2) Band Neutrophils 0 % (0-8) Platelet Estimate Decreased Platelet Morphology Normal Hypochromasia 2+ Anisocytosis 1+ Sodium Level 143 MMOL/L (136-145) Potassium Level 4.2 MMOL/L (3.5-5.1) Chloride Level 112 MMOL/L (98-107) Carbon Dioxide Level 24 MMOL/L (21-32) Anion Gap 7 mmol/L (5-15) Blood Urea Nitrogen 11 mg/dL (7-18) Creatinine 1.0 MG/DL (0.55-1.30) Estimat Glomerular Filtration Rate mL/min (>60) Glucose Level 165 MG/DL (74-106) Calcium Level 8.7 MG/DL (8.5-10.1) Total Bilirubin 0.5 MG/DL (0.2-1.0) Aspartate Amino Transf (AST/SGOT) 19 U/L (15-37) Alanine Aminotransferase (ALT/SGPT) 20 U/L (12-78) Alkaline Phosphatase 105 U/L (46-116) Ammonia 28 umol/L (11-32) Total Protein 6.6 G/DL (6.4-8.2) Albumin 1.6 G/DL (3.4-5.0) Globulin 5.0 g/dL Albumin/Globulin Ratio 0.3 (1.0-2.7) Objective: WDWN trach and vent noted anasarca reduced breath sounds bilaterally with scattered rhonchi [id number] without MRG NABS nontender no HSM; GT; no distention no CCE nonfocal poor LOC skin exam reviewed reviewed and examined Accucheck: 168 Bakari Montanez MD Jun 22, 2019 08:36
[2019-06-22] MEDS: cefTRIAXone 1 GM in D5W 55 ML IVPB SCH (08:44)
[2019-06-22] MEDS: levETIRAcetam 500mg/5ml Liquid GT SCH ×2 (08:44→21:03)
[2019-06-22] MEDS: Pantoprazole Inj IVP SCH (08:44)
[2019-06-22] MEDS ORDERED: D5NS 1000ml IV ONE (09:55)
[2019-06-22] MEDS ORDERED: NS 275ml ONE (09:55)
--- NOTE | 2019-06-22 10:17 | Infectious Diseases Prog Note ---
Assessment/Plan Assessment/Plan A 1. Proteus & Serratia pneumonia 2. shock, 3. cirrhosis 4.Ventilatory dependent respiratory failure 5. 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 continue Rocephin Subjective ROS Limited/Unobtainable: Yes Constitutional: Denies: fever Neurologic: Reports: other - facial twiching Allergies: Coded Allergies: No Known Allergies (Unverified , 07/04/18) Objective Vital Signs Last 24 Hour Vital Signs Date Time Temp Pulse Resp B/P (MAP) Pulse Ox O2 Delivery O2 Flow Rate FiO2 06/22/19 09:21 71 25 60 06/22/19 09:00 67 24 111/66 99 Mechanical Ventilator 60 06/22/19 08:00 60 06/22/19 08:00 67 06/22/19 08:00 97.6 71 27 105/69 99 Mechanical Ventilator 60 06/22/19 07:38 77 26 60 06/22/19 07:00 70 20 113/70 100 Mechanical Ventilator 70 06/22/19 06:00 73 28 114/61 100 Mechanical Ventilator 70 06/22/19 05:25 69 27 70 06/22/19 05:00 71 27 111/65 100 Mechanical Ventilator 70 06/22/19 04:00 70 06/22/19 04:00 97.9 74 28 119/69 100 Mechanical Ventilator 70 06/22/19 03:16 81 30 70 06/22/19 03:05 74 06/22/19 03:00 77 29 113/69 100 Mechanical Ventilator 70 06/22/19 02:00 78 28 103/71 100 Mechanical Ventilator 70 06/22/19 01:16 72 28 70 06/22/19 01:00 73 27 115/69 100 Mechanical Ventilator 70 06/22/19 00:00 98.9 74 29 118/67 100 Mechanical Ventilator 70 06/22/19 00:00 Mechanical Ventilator 06/21/19 23:40 93 06/21/19 23:11 69 29 70 06/21/19 23:00 71 28 113/66 100 Mechanical Ventilator 70 06/21/19 22:00 77 29 114/69 100 Mechanical Ventilator 70 06/21/19 21:30 75 30 70 06/21/19 21:00 80 30 107/64 99 Mechanical Ventilator 70 06/21/19 20:30 107/64 06/21/19 20:00 70 06/21/19 20:00 Mechanical Ventilator 06/21/19 20:00 98.9 88 31 102/57 98 Mechanical Ventilator 70 06/21/19 19:32 99 06/21/19 19:14 88 33 70 06/21/19 19:00 94 29 117/65 98 Mechanical Ventilator 70 06/21/19 18:00 94 29 111/61 98 Mechanical Ventilator 70 06/21/19 17:18 94 30 70 06/21/19 17:00 96 28 105/68 98 Mechanical Ventilator 70 06/21/19 16:00 98.8 98 32 108/78 98 Mechanical Ventilator 70 06/21/19 16:00 70 06/21/19 16:00 Mechanical Ventilator 06/21/19 16:00 95 06/21/19 15:23 96 33 99 Mechanical Ventilator 60.0 70 06/21/19 15:22 97 34 70 06/21/19 15:00 105 32 121/64 96 Mechanical Ventilator 70 06/21/19 14:00 96 31 109/69 97 Mechanical Ventilator 70 06/21/19 13:00 101 30 108/67 95 Mechanical Ventilator 70 06/21/19 12:42 101 31 70 06/21/19 12:00 Mechanical Ventilator 06/21/19 12:00 98 06/21/19 12:00 97.7 98 28 115/69 95 Mechanical Ventilator 90 06/21/19 12:00 90 06/21/19 11:00 103 24 108/75 93 Mechanical Ventilator 100 06/21/19 10:45 99 34 90 Height (Feet): 5 Height (Inches): 8.00 Weight (Pounds): 210 HEENT: status post trach Respiratory/Chest: lungs clear, other - on ventilator Cardiovascular: normal rate, other - RIJ central line Abdomen: soft, non tender, other - GT feeding Extremities: other - generalized edema Skin: ulcers Neurologic/Psychiatric: unresponsiveness Laboratory Tests Test 06/21/19 10:55 06/22/19 05:55 Arterial Blood pH 7.345 (7.350-7.450) Arterial Blood Partial Pressure CO2 38.3 mmHg (35.0-45.0) Arterial Blood Partial Pressure O2 64.1 mmHg (75.0-100.0) L Arterial Blood HCO3 20.4 mmol/L (22.0-26.0) L Arterial Blood Oxygen Saturation 90.7 % (95-100) L Arterial Blood Base Excess -4.8 (-2-2) L Balta Test Positive White Blood Count 12.7 K/UL (4.8-10.8) H Red Blood Count 2.95 M/UL (4.70-6.10) L Hemoglobin 8.6 G/DL (14.2-18.0) L Hematocrit 26.4 % (42.0-52.0) L Mean Corpuscular Volume 89 FL (80-99) Mean Corpuscular Hemoglobin 29.1 PG (27.0-31.0) Mean Corpuscular Hemoglobin Concent 32.6 G/DL (32.0-36.0) Red Cell Distribution Width 16.9 % (11.6-14.8) H Platelet Count 84 K/UL (150-450) L Mean Platelet Volume 8.6 FL (6.5-10.1) Neutrophils (%) (Auto) % (45.0-75.0) Lymphocytes (%) (Auto) % (20.0-45.0) Monocytes (%) (Auto) % (1.0-10.0) Eosinophils (%) (Auto) % (0.0-3.0) Basophils (%) (Auto) % (0.0-2.0) Differential Total Cells Counted 100 Neutrophils % (Manual) 74 % (45-75) Lymphocytes % (Manual) 18 % (20-45) L Monocytes % (Manual) 5 % (1-10) Eosinophils % (Manual) 3 % (0-3) Basophils % (Manual) 0 % (0-2) Band Neutrophils 0 % (0-8) Platelet Estimate Decreased L Platelet Morphology Normal Hypochromasia 2+ Anisocytosis 1+ Sodium Level 143 MMOL/L (136-145) Potassium Level 4.2 MMOL/L (3.5-5.1) Chloride Level 112 MMOL/L (98-107) H Carbon Dioxide Level 24 MMOL/L (21-32) Anion Gap 7 mmol/L (5-15) Blood Urea Nitrogen 11 mg/dL (7-18) Creatinine 1.0 MG/DL (0.55-1.30) Estimat Glomerular Filtration Rate mL/min (>60) Glucose Level 165 MG/DL (74-106) H Calcium Level 8.7 MG/DL (8.5-10.1) Total Bilirubin 0.5 MG/DL (0.2-1.0) Aspartate Amino Transf (AST/SGOT) 19 U/L (15-37) Alanine Aminotransferase (ALT/SGPT) 20 U/L (12-78) Alkaline Phosphatase 105 U/L (46-116) Ammonia 28 umol/L (11-32) Total Protein 6.6 G/DL (6.4-8.2) Albumin 1.6 G/DL (3.4-5.0) L Globulin 5.0 g/dL Albumin/Globulin Ratio 0.3 (1.0-2.7) L Current Medications Medications (Trade) Dose Ordered Sig/Derrick Route PRN Reason Start Time Stop Time Status Last Admin Dose Admin Ceftriaxone Sodium 1 gm/ Dextrose 55 ml @ 110 mls/hr DAILY IVPB 06/20/19 15:00 06/27/19 14:59 06/22/19 08:44 Chlorhexidine Gluconate (Gwendolyn-Hex 2%) 1 applic DAILY@2000 TOPIC 06/18/19 20:00 07/18/19 19:59 06/21/19 21:11 Dextrose (Dextrose 50%) 25 ml Q30M PRN IV Hypoglycemia 06/17/19 08:00 07/17/19 07:59 Dextrose (Dextrose 50%) 50 ml Q30M PRN IV Hypoglycemia 06/17/19 08:00 07/17/19 07:59 Dextrose/Sodium Chloride 1,000 ml @ 25 mls/hr Q24H IV 06/19/19 15:00 07/19/19 14:59 06/21/19 14:49 Insulin Aspart (NovoLOG) BEFORE MEALS AND HS SUBQ 06/17/19 11:30 07/17/19 11:29 06/22/19 05:42 Levetiracetam (Keppra) 1,000 mg Q12HR GT 06/19/19 21:00 07/19/19 20:59 06/22/19 08:44 Lorazepam (Ativan 2mg/ml 1ml) 1 mg Q2H PRN IV For Seizures 06/19/19 14:45 06/26/19 14:44 06/19/19 20:43 Norepinephrine Bitartrate 4 mg/ Dextrose 250 ml @ 0 mls/hr Q24H IV 06/17/19 20:30 07/17/19 20:29 06/20/19 02:41 Octreotide Acetate 500 mcg/ Sodium Chloride 500 ml @ 50 mls/hr Q10H IV 06/20/19 23:15 07/20/19 23:14 06/22/19 05:13 Pantoprazole (Protonix) 40 mg DAILY IVP 06/18/19 17:30 07/18/19 17:29 06/22/19 08:44 Carlos Amaro MD Jun 22, 2019 10:17
--- NOTE | 2019-06-22 12:11 | General Progress Note ---
Assessment/Plan Problem List: (1) GIB (gastrointestinal bleeding) ICD Codes: K92.2 - Gastrointestinal hemorrhage, unspecified SNOMED: 78252413 (2) Anemia ICD Codes: D64.9 - Anemia, unspecified SNOMED: 977739364 Qualifiers: Qualified Codes: D64.9 - Anemia, unspecified (3) Hyponatremia ICD Codes: E87.1 - Hypo-osmolality and hyponatremia SNOMED: 07341419 (4) Renal insufficiency ICD Codes: N28.9 - Disorder of kidney and ureter, unspecified; R65.20 - Severe sepsis without septic shock SNOMED: 605329619, 609836694 (5) Pneumonia ICD Codes: J18.9 - Pneumonia, unspecified organism SNOMED: 044847429, 539432937 Qualifiers: Qualified Codes: J18.9 - Pneumonia, unspecified organism (6) Severe sepsis ICD Codes: A41.9 - Sepsis, unspecified organism; R65.20 - Severe sepsis without septic shock SNOMED: 89564131 (7) Decubitus skin ulcer ICD Codes: L89.90 - Pressure ulcer of unspecified site, unspecified stage SNOMED: 611687254 (8) Leukocytosis ICD Codes: D72.829 - Elevated white blood cell count, unspecified SNOMED: 693221898, 266753079 (9) Hyperglycemia ICD Codes: R73.9 - Hyperglycemia, unspecified SNOMED: 56063921 (10) Hypothermia ICD Codes: T68.XXXA - Hypothermia, initial encounter SNOMED: 606790456 Qualifiers: Qualified Codes: T68.XXXA - Hypothermia, initial encounter Status: stable, unchanged Assessment/Plan: cont current rx monitor off pressors iv abx per id follow up cultures PPI rx vent support resp rx suctioning as needed poor prognosis Subjective ROS Limited/Unobtainable: Yes Constitutional: Reports: malaise, weakness HEENT: Reports: no symptoms Cardiovascular: Reports: no symptoms Respiratory: Reports: shortness of breath, sputum Gastrointestinal/Abdominal: Reports: tarry stools, difficulty swallowing Genitourinary: Reports: no symptoms Neurologic/Psychiatric: Reports: pre-existing deficit, seizure Endocrine: Reports: no symptoms Hematologic/Lymphatic: Reports: no symptoms Allergies: Coded Allergies: No Known Allergies (Unverified , 07/04/18) All Systems: reviewed and negative except above Subjective off pressors. awake. no bleeding noted. no fever or chills. labs reviewed. on abx. still with facial twitching. Objective Last 24 Hour Vital Signs Date Time Temp Pulse Resp B/P (MAP) Pulse Ox O2 Delivery O2 Flow Rate FiO2 06/22/19 11:16 72 30 60 06/22/19 11:00 80 31 117/61 97 Mechanical Ventilator 60 06/22/19 10:00 71 28 106/56 99 Mechanical Ventilator 60 06/22/19 09:21 71 25 60 06/22/19 09:00 67 24 111/66 99 Mechanical Ventilator 60 06/22/19 08:00 60 06/22/19 08:00 67 06/22/19 08:00 97.6 71 27 105/69 99 Mechanical Ventilator 60 06/22/19 07:38 77 26 60 06/22/19 07:00 70 20 113/70 100 Mechanical Ventilator 70 06/22/19 06:00 73 28 114/61 100 Mechanical Ventilator 70 06/22/19 05:25 69 27 70 06/22/19 05:00 71 27 111/65 100 Mechanical Ventilator 70 06/22/19 04:00 70 06/22/19 04:00 97.9 74 28 119/69 100 Mechanical Ventilator 70 06/22/19 03:16 81 30 70 06/22/19 03:05 74 06/22/19 03:00 77 29 113/69 100 Mechanical Ventilator 70 06/22/19 02:00 78 28 103/71 100 Mechanical Ventilator 70 06/22/19 01:16 72 28 70 06/22/19 01:00 73 27 115/69 100 Mechanical Ventilator 70 06/22/19 00:00 98.9 74 29 118/67 100 Mechanical Ventilator 70 06/22/19 00:00 Mechanical Ventilator 06/21/19 23:40 93 06/21/19 23:11 69 29 70 06/21/19 23:00 71 28 113/66 100 Mechanical Ventilator 70 06/21/19 22:00 77 29 114/69 100 Mechanical Ventilator 70 06/21/19 21:30 75 30 70 06/21/19 21:00 80 30 107/64 99 Mechanical Ventilator 70 06/21/19 20:30 107/64 06/21/19 20:00 70 06/21/19 20:00 Mechanical Ventilator 06/21/19 20:00 98.9 88 31 102/57 98 Mechanical Ventilator 70 06/21/19 19:32 99 06/21/19 19:14 88 33 70 06/21/19 19:00 94 29 117/65 98 Mechanical Ventilator 70 06/21/19 18:00 94 29 111/61 98 Mechanical Ventilator 70 06/21/19 17:18 94 30 70 06/21/19 17:00 96 28 105/68 98 Mechanical Ventilator 70 06/21/19 16:00 98.8 98 32 108/78 98 Mechanical Ventilator 70 06/21/19 16:00 70 06/21/19 16:00 Mechanical Ventilator 06/21/19 16:00 95 06/21/19 15:23 96 33 99 Mechanical Ventilator 60.0 70 06/21/19 15:22 97 34 70 06/21/19 15:00 105 32 121/64 96 Mechanical Ventilator 70 06/21/19 14:00 96 31 109/69 97 Mechanical Ventilator 70 06/21/19 13:00 101 30 108/67 95 Mechanical Ventilator 70 06/21/19 12:42 101 31 70 Intake and Output 06/21/19 06/22/19 19:00 07:00 Intake Total 1063 ml 903.12 ml Output Total 490 ml 440 ml Balance 573 ml 463.12 ml Free Water 100 ml IV Total 923 ml 853.12 ml Other 40 ml 50 ml Output Urine Total 490 ml 440 ml Laboratory Tests 06/22/19 05:55: White Blood Count 12.7H, Red Blood Count 2.95L, Hemoglobin 8.6L, Hematocrit 26.4L, Mean Corpuscular Volume 89, Mean Corpuscular Hemoglobin 29.1, Mean Corpuscular Hemoglobin Concent 32.6, Red Cell Distribution Width 16.9H, Platelet Count 84L, Mean Platelet Volume 8.6, Neutrophils (%) (Auto) , Lymphocytes (%) (Auto) , Monocytes (%) (Auto) , Eosinophils (%) (Auto) , Basophils (%) (Auto) , Differential Total Cells Counted 100, Neutrophils % ( Manual) 74, Lymphocytes % (Manual) 18L, Monocytes % (Manual) 5, Eosinophils % ( Manual) 3, Basophils % (Manual) 0, Band Neutrophils 0, Platelet Estimate DecreasedL, Platelet Morphology Normal, Hypochromasia 2+, Anisocytosis 1+, Sodium Level 143, Potassium Level 4.2, Chloride Level 112H, Carbon Dioxide Level 24, Anion Gap 7, Blood Urea Nitrogen 11, Creatinine 1.0, Estimat Glomerular Filtration Rate , Glucose Level 165H, Calcium Level 8.7, Total Bilirubin 0.5, Aspartate Amino Transf (AST/SGOT) 19, Alanine Aminotransferase ( ALT/SGPT) 20, Alkaline Phosphatase 105, Ammonia 28, Total Protein 6.6, Albumin 1.6L, Globulin 5.0, Albumin/Globulin Ratio 0.3L Height (Feet): 5 Height (Inches): 8.00 Weight (Pounds): 210 General Appearance: WD/WN, lethargic Neck: supple Cardiovascular: regular rhythm Respiratory/Chest: chest wall non-tender, lungs clear, normal breath sounds, no respiratory distress, no accessory muscle use Abdomen: normal bowel sounds, non tender, soft, no organomegaly, no mass Edema: mild edema Neurologic: disoriented, unresponsive, aphasia Chano Galeana MD Jun 22, 2019 12:11
--- NOTE | 2019-06-22 12:15 | Cardiology Report ---
APPROVED REPORT EXAM: Two-dimensional and M-mode echocardiogram with Doppler and color Doppler. INDICATION Congestive Heart Failure M-Mode DIMENSIONS IVSd0.9 (0.7-1.1cm)Left Atrium (MM)3.4 (1.6-4.0cm) LVDd4.2 (3.5-5.6cm)Aortic Root3.2 (2.0-3.7cm) PWd1.0 (0.7-1.1cm)Aortic Cusp Exc.2.0 (1.5-2.0cm) IVSs1.3 cm LVDs2.7 (2.5-4.0cm) PWs1.3 cm Normal left ventricular chamber size, systolic function and wall motion to extent visualized. Left ventricular ejection fraction estimated to be 55-60 %. Mild left ventricular hypertrophy. Anterior Echo-free space, may be due to pericardial fat or effusion. Pleural effusion present . All other cardiac chamber sizes are within normal limits. Focal aortic valve sclerosis with normal cusp excursion. Thickened mitral valve leaflets with normal excursion. Mitral annulus and aortic root calcification. Normal pulmonic valve structure. Normal tricuspid valve structure. IVC dilated at 2.4 cm without physiologic collapse suggestive of increased RA pressure. A color flow and spectral Doppler study was performed and revealed: No aortic insufficiency. Trace mitral regurgitation. Mitral diastolic velocities suggest reduced left ventricular relaxation c/w mild LV diastolic dysfunction (Grade I ). Trace tricuspid regurgitation. Tricuspid systolic velocities suggests peak right ventricular systolic pressure of 20 mmHg.
--- NOTE | 2019-06-22 13:47 | Nephrology Progress Note ---
Assessment/Plan Problem List: (1) POPPY (acute kidney injury) (2) Hyponatremia (3) Renal insufficiency Plan improving Na and poppy, reducing iv fluid, still with poor prognosis with severely low albumin ventilator dependent seizures vs twitching, continue maintenance IV fluids Subjective ROS Limited/Unobtainable: Yes Objective Objective Last 24 Hour Vital Signs Date Time Temp Pulse Resp B/P (MAP) Pulse Ox O2 Delivery O2 Flow Rate FiO2 06/22/19 13:00 80 27 114/73 98 Mechanical Ventilator 60 06/22/19 12:46 77 29 60 06/22/19 12:30 98.4 75 27 109/72 97 Mechanical Ventilator 60 06/22/19 12:08 82 06/22/19 12:00 60 06/22/19 12:00 Mechanical Ventilator 06/22/19 12:00 78 28 106/64 97 Mechanical Ventilator 60 06/22/19 11:16 72 30 60 06/22/19 11:00 80 31 117/61 97 Mechanical Ventilator 60 06/22/19 10:00 71 28 106/56 99 Mechanical Ventilator 60 06/22/19 09:21 71 25 60 06/22/19 09:00 67 24 111/66 99 Mechanical Ventilator 60 06/22/19 08:00 60 06/22/19 08:00 67 06/22/19 08:00 97.6 71 27 105/69 99 Mechanical Ventilator 60 06/22/19 07:38 77 26 60 06/22/19 07:00 70 20 113/70 100 Mechanical Ventilator 70 06/22/19 06:00 73 28 114/61 100 Mechanical Ventilator 70 06/22/19 05:25 69 27 70 06/22/19 05:00 71 27 111/65 100 Mechanical Ventilator 70 06/22/19 04:00 70 06/22/19 04:00 97.9 74 28 119/69 100 Mechanical Ventilator 70 06/22/19 03:16 81 30 70 06/22/19 03:05 74 06/22/19 03:00 77 29 113/69 100 Mechanical Ventilator 70 06/22/19 02:00 78 28 103/71 100 Mechanical Ventilator 70 06/22/19 01:16 72 28 70 06/22/19 01:00 73 27 115/69 100 Mechanical Ventilator 70 06/22/19 00:00 98.9 74 29 118/67 100 Mechanical Ventilator 70 06/22/19 00:00 Mechanical Ventilator 10/12/19 23:40 93 06/21/19 23:11 69 29 70 06/21/19 23:00 71 28 113/66 100 Mechanical Ventilator 70 06/21/19 22:00 77 29 114/69 100 Mechanical Ventilator 70 06/21/19 21:30 75 30 70 06/21/19 21:00 80 30 107/64 99 Mechanical Ventilator 70 06/21/19 20:30 107/64 06/21/19 20:00 70 06/21/19 20:00 Mechanical Ventilator 06/21/19 20:00 98.9 88 31 102/57 98 Mechanical Ventilator 70 06/21/19 19:32 99 06/21/19 19:14 88 33 70 06/21/19 19:00 94 29 117/65 98 Mechanical Ventilator 70 06/21/19 18:00 94 29 111/61 98 Mechanical Ventilator 70 06/21/19 17:18 94 30 70 06/21/19 17:00 96 28 105/68 98 Mechanical Ventilator 70 06/21/19 16:00 98.8 98 32 108/78 98 Mechanical Ventilator 70 06/21/19 16:00 70 06/21/19 16:00 Mechanical Ventilator 06/21/19 16:00 95 06/21/19 15:23 96 33 99 Mechanical Ventilator 60.0 70 06/21/19 15:22 97 34 70 06/21/19 15:00 105 32 121/64 96 Mechanical Ventilator 70 06/21/19 14:00 96 31 109/69 97 Mechanical Ventilator 70 Intake and Output 06/21/19 06/22/19 18:59 06:59 Intake Total 1063 ml 903.12 ml Output Total 575 ml 460 ml Balance 488 ml 443.12 ml Free Water 100 ml IV Total 923 ml 853.12 ml Other 40 ml 50 ml Output Urine Total 575 ml 460 ml Laboratory Tests 06/22/19 05:55: White Blood Count 12.7H, Red Blood Count 2.95L, Hemoglobin 8.6L, Hematocrit 26.4L, Mean Corpuscular Volume 89, Mean Corpuscular Hemoglobin 29.1, Mean Corpuscular Hemoglobin Concent 32.6, Red Cell Distribution Width 16.9H, Platelet Count 84L, Mean Platelet Volume 8.6, Neutrophils (%) (Auto) , Lymphocytes (%) (Auto) , Monocytes (%) (Auto) , Eosinophils (%) (Auto) , Basophils (%) (Auto) , Differential Total Cells Counted 100, Neutrophils % ( Manual) 74, Lymphocytes % (Manual) 18L, Monocytes % (Manual) 5, Eosinophils % ( Manual) 3, Basophils % (Manual) 0, Band Neutrophils 0, Platelet Estimate DecreasedL, Platelet Morphology Normal, Hypochromasia 2+, Anisocytosis 1+, Sodium Level 143, Potassium Level 4.2, Chloride Level 112H, Carbon Dioxide Level 24, Anion Gap 7, Blood Urea Nitrogen 11, Creatinine 1.0, Estimat Glomerular Filtration Rate , Glucose Level 165H, Calcium Level 8.7, Total Bilirubin 0.5, Aspartate Amino Transf (AST/SGOT) 19, Alanine Aminotransferase ( ALT/SGPT) 20, Alkaline Phosphatase 105, Ammonia 28, Total Protein 6.6, Albumin 1.6L, Globulin 5.0, Albumin/Globulin Ratio 0.3L Height (Feet): 5 Height (Inches): 8.00 Weight (Pounds): 210 General Appearance: other - Unresponsive on ventilator some facial twitching Cardiovascular: regular rhythm Respiratory/Chest: rhonchi - bilaterally Abdomen: non tender Extremities: moderate edema Neurologic: unresponsive Nik Deras MD Jun 22, 2019 13:47
[2019-06-22] MEDS ORDERED: Sterile Water Irrig 1000ml IRRIG ONE (15:11)
--- NOTE | 2019-06-22 16:20 | Surgery Progress Note ---
Surgery Progress Note Subjective Additional Comments plan for downgrade to BILLY today keep IJ line in for now labs noted Objective Last 24 Hour Vital Signs Date Time Temp Pulse Resp B/P (MAP) Pulse Ox O2 Delivery O2 Flow Rate FiO2 06/22/19 15:26 76 29 60 06/22/19 15:00 79 30 109/54 97 Mechanical Ventilator 60 06/22/19 14:00 77 28 104/61 98 Mechanical Ventilator 60 06/22/19 13:00 80 27 114/73 98 Mechanical Ventilator 60 06/22/19 12:46 77 29 60 06/22/19 12:30 98.4 75 27 109/72 97 Mechanical Ventilator 60 06/22/19 12:08 82 06/22/19 12:00 60 06/22/19 12:00 Mechanical Ventilator 06/22/19 12:00 78 28 106/64 97 Mechanical Ventilator 60 06/22/19 11:16 72 30 60 06/22/19 11:00 80 31 117/61 97 Mechanical Ventilator 60 06/22/19 10:00 71 28 106/56 99 Mechanical Ventilator 60 06/22/19 09:21 71 25 60 06/22/19 09:00 67 24 111/66 99 Mechanical Ventilator 60 06/22/19 08:00 60 06/22/19 08:00 67 06/22/19 08:00 97.6 71 27 105/69 99 Mechanical Ventilator 60 06/22/19 07:38 77 26 60 06/22/19 07:00 70 20 113/70 100 Mechanical Ventilator 70 06/22/19 06:00 73 28 114/61 100 Mechanical Ventilator 70 06/22/19 05:25 69 27 70 06/22/19 05:00 71 27 111/65 100 Mechanical Ventilator 70 06/22/19 04:00 70 06/22/19 04:00 97.9 74 28 119/69 100 Mechanical Ventilator 70 06/22/19 03:16 81 30 70 06/22/19 03:05 74 06/22/19 03:00 77 29 113/69 100 Mechanical Ventilator 70 06/22/19 02:00 78 28 103/71 100 Mechanical Ventilator 70 06/22/19 01:16 72 28 70 06/22/19 01:00 73 27 115/69 100 Mechanical Ventilator 70 06/22/19 00:00 98.9 74 29 118/67 100 Mechanical Ventilator 70 06/22/19 00:00 Mechanical Ventilator 06/21/19 23:40 93 06/21/19 23:11 69 29 70 06/21/19 23:00 71 28 113/66 100 Mechanical Ventilator 70 06/21/19 22:00 77 29 114/69 100 Mechanical Ventilator 70 06/21/19 21:30 75 30 70 06/21/19 21:00 80 30 107/64 99 Mechanical Ventilator 70 06/21/19 20:30 107/64 06/21/19 20:00 70 06/21/19 20:00 Mechanical Ventilator 06/21/19 20:00 98.9 88 31 102/57 98 Mechanical Ventilator 70 06/21/19 19:32 99 06/21/19 19:14 88 33 70 06/21/19 19:00 94 29 117/65 98 Mechanical Ventilator 70 06/21/19 18:00 94 29 111/61 98 Mechanical Ventilator 70 06/21/19 17:18 94 30 70 06/21/19 17:00 96 28 105/68 98 Mechanical Ventilator 70 I&O Intake and Output 06/21/19 06/22/19 18:59 06:59 Intake Total 1063 ml 903.12 ml Output Total 575 ml 460 ml Balance 488 ml 443.12 ml Free Water 100 ml IV Total 923 ml 853.12 ml Other 40 ml 50 ml Output Urine Total 575 ml 460 ml Cardiovascular: RSR Respiratory: decreased breath sounds Abdomen: soft, present bowel sounds, non-distended Extremities: no cyanosis, other Laboratory Tests Test 06/22/19 05:55 White Blood Count 12.7 K/UL (4.8-10.8) H Red Blood Count 2.95 M/UL (4.70-6.10) L Hemoglobin 8.6 G/DL (14.2-18.0) L Hematocrit 26.4 % (42.0-52.0) L Mean Corpuscular Volume 89 FL (80-99) Mean Corpuscular Hemoglobin 29.1 PG (27.0-31.0) Mean Corpuscular Hemoglobin Concent 32.6 G/DL (32.0-36.0) Red Cell Distribution Width 16.9 % (11.6-14.8) H Platelet Count 84 K/UL (150-450) L Mean Platelet Volume 8.6 FL (6.5-10.1) Neutrophils (%) (Auto) % (45.0-75.0) Lymphocytes (%) (Auto) % (20.0-45.0) Monocytes (%) (Auto) % (1.0-10.0) Eosinophils (%) (Auto) % (0.0-3.0) Basophils (%) (Auto) % (0.0-2.0) Differential Total Cells Counted 100 Neutrophils % (Manual) 74 % (45-75) Lymphocytes % (Manual) 18 % (20-45) L Monocytes % (Manual) 5 % (1-10) Eosinophils % (Manual) 3 % (0-3) Basophils % (Manual) 0 % (0-2) Band Neutrophils 0 % (0-8) Platelet Estimate Decreased L Platelet Morphology Normal Hypochromasia 2+ Anisocytosis 1+ Sodium Level 143 MMOL/L (136-145) Potassium Level 4.2 MMOL/L (3.5-5.1) Chloride Level 112 MMOL/L (98-107) H Carbon Dioxide Level 24 MMOL/L (21-32) Anion Gap 7 mmol/L (5-15) Blood Urea Nitrogen 11 mg/dL (7-18) Creatinine 1.0 MG/DL (0.55-1.30) Estimat Glomerular Filtration Rate mL/min (>60) Glucose Level 165 MG/DL (74-106) H Calcium Level 8.7 MG/DL (8.5-10.1) Total Bilirubin 0.5 MG/DL (0.2-1.0) Aspartate Amino Transf (AST/SGOT) 19 U/L (15-37) Alanine Aminotransferase (ALT/SGPT) 20 U/L (12-78) Alkaline Phosphatase 105 U/L (46-116) Ammonia 28 umol/L (11-32) Total Protein 6.6 G/DL (6.4-8.2) Albumin 1.6 G/DL (3.4-5.0) L Globulin 5.0 g/dL Albumin/Globulin Ratio 0.3 (1.0-2.7) L Plan Problems: (1) Leukocytosis (2) Decubitus skin ulcer Assessment & Plan: Pt presented on admission with multiple pressure injuries. Resolving pressure injury posterior neck under collar of trach. Base of wound has mostly pink epithelial with scattered small partial thickness wounds (L)2cm x (W)1.6cm. Tracheal stoma noted to have denuded area R side of stoma.. Resolving full thickness sacral pressure injury L sacrum (L)2.5cm x (W)1cm x (D) 0.2cm.Lago granulation at base of wound . Inferior but in close proximity to L sacral wound ,pt noted to have darker skin tone with scattered areas that are fluctuant and partially opened with small amt of sanguineous exudate noted (L) 9cm x (W)11.5cm. Resolving pressure injury noted to base of scrotum . Base of wound pink and dry (L)1cm x (W)0.8cm. Unstageable pressure injury noted to R heel extending into plantar aspect of R heel.At plantar aspect of heel soft necrosis noted that is oozing small amt brown purulent exudate(L)3cm x (W)3.5cm. Surrounding the area of necrosis, wound is black with fluctuance and marginal erythema along edges. Wound is malodorous.(L)8cm x (W)9.5cm. L heel is boggy with non-blanching erythema. Tx.Plan: Apply Cavilon Skin Barrier to posterior neck. Cover with Optifoam drsg. Change every 3 days and prn. Apply Moisture Barrier Paste to sacrum. Cover with Optifoam drsg. Change every 3days and prn. Apply Moisture Barrier Paste to Scrotum with each incontinence care. Apply Betadine to R heel . Cover with ABD pad and wrap with kerlix Daily and prn. Apply Cavilon Skin Barrier to R heel. Cover with Optifoam drsg. Change every 7 days and prn. APM/LARISSA Mattress overlay. Reposition at least every 2hours or as tolerated. Off-load heels with pillow. (3) Severe sepsis Assessment & Plan: Leukocytosis, lactic acidosis, hyperkalemia, hyponatremia. Severe sepsis Fluid resuscitation IV antibiotics as per infectious disease Trend labs Wound care as above We will follow with recommendations Thank you for this consultation Abdoul Lucas Jun 22, 2019 16:20
[2019-06-22] MEDS ORDERED: LORazepam Inj 2mg/ml 1ml IV PRN (18:45)
[2019-06-22] MEDS ORDERED: NovoLOG Insulin Flexpen SUBQ SCH (21:00)
[2019-06-22] MEDS: Dyna-Hex 2% Top Sol 2oz TOPIC SCH (21:05)
[2019-06-23] VITALS: BP 113/70
--- NOTE | 2019-06-23 00:30 | Progress Note ---
DATE: 06/22/2019 CARDIOLOGY PROGRESS NOTE SUBJECTIVE: The patient still has facial twitching. He remains off pressors. Still on ventilator support. OBJECTIVE: VITAL SIGNS: Blood pressure 116/53, pulse 77, respirations 29, temperature 97.4. On mechanical ventilation. HEENT: Thin trach secretions. LUNGS: Bilateral breath sounds with rhonchi. HEART: Regular rhythm and rate. Normal S1, S2 with no new murmur appreciated. ABDOMEN: Soft with G-tube intact. EXTREMITIES: With no edema. IMAGING: Chest x-ray yesterday was reviewed and notable for patchy interstitial infiltrates with small left pleural effusion. LABORATORY DATA: White count 12.7, hemoglobin 8.6. Sodium 143, potassium 4.2, bicarb 24, BUN 11, creatinine 1.0. Albumin 1.6. IMPRESSION: 1. Sepsis with shock and hypothermia, now recovered. 2. Respiratory failure. 3. Severe protein-calorie malnutrition. 4. Acute on chronic diastolic congestive heart failure. 5. Possible ARDS. PLAN: 1. Antimicrobials. 2. Ventilator support. 3. Respiratory hygiene. 4. Antiseizure therapy. 5. Protein supplement. 6. Discontinue IV fluids. [place] M.D. DR: VÍCTOR JOB#: [id number] CC:
[2019-06-23] MEDS ORDERED: Octreotide Acetate 500 MCG in Sodium Chloride 499 ML IV SCH (01:00)
[2019-06-23 04:00] VITALS: BP 116/74
[2019-06-23 05:51] LABS: HEMATOCRIT 24.3 % (42.0-52.0); HEMOGLOBIN 7.9 G/DL (14.2-18.0); MEAN CORPUSCULAR VOLUME 89 FL (80-99); PLATELET COUNT 107 K/UL (150-450); RED BLOOD COUNT 2.73 M/UL (4.70-6.10); WHITE BLOOD COUNT 15.6 K/UL (4.8-10.8)
[2019-06-23 06:14] LABS: ALANINE AMINOTRANSFERASE 19 U/L (12-78); ALBUMIN 1.6 G/DL (3.4-5.0); ALBUMIN/GLOBULIN RATIO 0.3 (1.0-2.7); ALKALINE PHOSPHATASE 106 U/L (46-116); ANION GAP 5 mmol/L (5-15); ASPARTATE AMINO TRANSFERASE 17 U/L (15-37); BILIRUBIN,TOTAL 0.4 MG/DL (0.2-1.0); BLOOD UREA NITROGEN 13 mg/dL (7-18); CALCIUM 8.3 MG/DL (8.5-10.1); CARBON DIOXIDE 27 MMOL/L (21-32); CHLORIDE 113 MMOL/L (98-107); CREATININE 0.9 MG/DL (0.55-1.30); POTASSIUM 3.9 MMOL/L (3.5-5.1); SODIUM 144 MMOL/L (136-145)
[2019-06-23] MEDS: NovoLOG Insulin Flexpen SUBQ SCH ×3 (06:28→18:40)
--- NOTE | 2019-06-23 07:53 | General Progress Note ---
Assessment/Plan Status: stable, unchanged Assessment/Plan: Assessment - Recent melena/heme (+) stools - now stable - Anemia - Chronic liver disease with thrombocytopenia, possibly portal HTN - Resp failure - s/p trach - dysphagia - s/p PEG - Anoxic encephalopathy, non communicative - bed bound, contracted - poor Px Recommendations - continue feeds - SLAG EXPANDER to locate family re possible EGD - change PPI from IV to PO - Reduce sandostatin gtt from 50 --> 25 and wean off - monitor CBC - locate and discuss care with family - Endoscopy once consent obtained Subjective Allergies: Coded Allergies: No Known Allergies (Unverified , 07/04/18) Subjective Above noted calls made to next of kin over the weekend messages left on VM - no reply patient's labs show Hepatitis C Positive more stable now out of ICU back on TF on empiric Sandostatin gtt at 50/hr Objective Last 24 Hour Vital Signs Date Time Temp Pulse Resp B/P (MAP) Pulse Ox O2 Delivery O2 Flow Rate FiO2 06/23/19 05:00 77 29 60 06/23/19 04:00 98.4 67 24 116/74 99 Mechanical Ventilator 60 06/23/19 04:00 60 06/23/19 04:00 88 06/23/19 04:00 Mechanical Ventilator 06/23/19 02:35 74 34 60 06/23/19 01:24 78 32 60 06/23/19 00:00 Mechanical Ventilator 06/23/19 00:00 67 06/23/19 00:00 99.1 69 30 113/70 98 Mechanical Ventilator 60 06/22/19 23:15 77 31 60 06/22/19 20:40 79 32 60 06/22/19 20:00 75 06/22/19 20:00 98.8 96 29 99/61 98 Mechanical Ventilator 60 06/22/19 20:00 Mechanical Ventilator 06/22/19 20:00 60 06/22/19 19:00 81 30 60 06/22/19 16:43 79 26 60 06/22/19 16:00 97.4 80 29 116/53 98 Mechanical Ventilator 06/22/19 16:00 Mechanical Ventilator 06/22/19 16:00 60 06/22/19 16:00 77 06/22/19 15:26 76 29 60 06/22/19 15:00 79 30 109/54 97 Mechanical Ventilator 60 06/22/19 14:00 77 28 104/61 98 Mechanical Ventilator 60 06/22/19 13:00 80 27 114/73 98 Mechanical Ventilator 60 06/22/19 12:46 77 29 60 06/22/19 12:30 98.4 75 27 109/72 97 Mechanical Ventilator 60 06/22/19 12:08 82 06/22/19 12:00 60 06/22/19 12:00 Mechanical Ventilator 06/22/19 12:00 78 28 106/64 97 Mechanical Ventilator 60 06/22/19 11:16 72 30 60 06/22/19 11:00 80 31 117/61 97 Mechanical Ventilator 60 06/22/19 10:00 71 28 106/56 99 Mechanical Ventilator 60 06/22/19 09:21 71 25 60 06/22/19 09:00 67 24 111/66 99 Mechanical Ventilator 60 06/22/19 08:00 60 06/22/19 08:00 67 06/22/19 08:00 97.6 71 27 105/69 99 Mechanical Ventilator 60 Intake and Output 06/22/19 06/23/19 19:00 07:00 Intake Total 1020 ml 920 ml Output Total 265 ml 500 ml Balance 755 ml 420 ml Free Water 200 ml 30 ml IV Total 655 ml 450 ml Tube Feeding 125 ml 440 ml Other 40 ml Output Urine Total 265 ml 500 ml Laboratory Tests 06/23/19 04:30: White Blood Count 15.6H, Red Blood Count 2.73L, Hemoglobin 7.9L, Hematocrit 24.3L, Mean Corpuscular Volume 89, Mean Corpuscular Hemoglobin 29.1, Mean Corpuscular Hemoglobin Concent 32.7, Red Cell Distribution Width 16.0H, Platelet Count 107L, Mean Platelet Volume 7.9, Neutrophils (%) (Auto) , Lymphocytes (%) (Auto) , Monocytes (%) (Auto) , Eosinophils (%) (Auto) , Basophils (%) (Auto) , Neutrophils % (Manual) [Pending], Lymphocytes % (Manual) [Pending], Platelet Estimate [Pending], Platelet Morphology [Pending], Sodium Level 144, Potassium Level 3.9, Chloride Level 113H, Carbon Dioxide Level 27, Anion Gap 5, Blood Urea Nitrogen 13, Creatinine 0.9, Estimat Glomerular Filtration Rate , Glucose Level 154H, Calcium Level 8.3L, Magnesium Level 1.4L, Total Bilirubin 0.4, Aspartate Amino Transf (AST/SGOT) 17, Alanine Aminotransferase (ALT/SGPT) 19, Alkaline Phosphatase 106, Pro-B-Type Natriuretic Peptide 4321H, Total Protein 6.5, Albumin 1.6L, Globulin 4.9, Albumin/Globulin Ratio 0.3L Height (Feet): 5 Height (Inches): 8.00 Weight (Pounds): 211 Objective Debilitated AA man unresponsive NCAT (+) trach coarse BS RR abd soft, (+) GT no edema (+) OBS, contracted, non-verbal Manolo Okeefe MD Jun 23, 2019 07:53
[2019-06-23 08:00] VITALS: BP 110/65
[2019-06-23] MEDS: levETIRAcetam 500mg/5ml Liquid GT SCH ×2 (08:28→20:23)
--- NOTE | 2019-06-23 08:34 | Critical Care Progress Note ---
Assessment/Plan Assessment/Plan chronic respiratory failure multifocal pneumonia hypoxemia sepsis leukocytosis hyponatremia ARF trach GT severe PCM chronic encephalopathy possible colitis PLAN monitor labs closely vent support as is- no wean planned monitor acid base and adjust iv antibiotics monitor imaging for change monitor effusion monitor cultures off load and monitor skin exam all care reviewed in detail monitor for seizures as prior close follow up of all parameters dc to subacute soon impression, plan, and exam edited and reviewed in detail care discussed with tier and detonator - Subjective Interval Events: transferred out of ICU vent and feeds noted obtunded ROS Limited/Unobtainable: Yes Condition: critical EKG Rhythm: Sinus Rhythm Residuals: minimal Tube Feeding Tolerated: yes I&O: Intake and Output 06/22/19 06/23/19 19:00 07:00 Intake Total 1020 ml 920 ml Output Total 265 ml 500 ml Balance 755 ml 420 ml Free Water 200 ml 30 ml IV Total 655 ml 450 ml Tube Feeding 125 ml 440 ml Other 40 ml Output Urine Total 265 ml 500 ml Critical Care - Objective Last 24 Hour Vital Signs Date Time Temp Pulse Resp B/P (MAP) Pulse Ox O2 Delivery O2 Flow Rate FiO2 06/23/19 07:42 86 32 60 06/23/19 05:00 77 29 60 06/23/19 04:00 98.4 67 24 116/74 99 Mechanical Ventilator 60 06/23/19 04:00 60 06/23/19 04:00 88 06/23/19 04:00 Mechanical Ventilator 06/23/19 02:35 74 34 60 06/23/19 01:24 78 32 60 06/23/19 00:00 Mechanical Ventilator 06/23/19 00:00 67 06/23/19 00:00 99.1 69 30 113/70 98 Mechanical Ventilator 60 06/22/19 23:15 77 31 60 06/22/19 20:40 79 32 60 06/22/19 20:00 75 06/22/19 20:00 98.8 96 29 99/61 98 Mechanical Ventilator 60 06/22/19 20:00 Mechanical Ventilator 06/22/19 20:00 60 06/22/19 19:00 81 30 60 06/22/19 16:43 79 26 60 06/22/19 16:00 97.4 80 29 116/53 98 Mechanical Ventilator 06/22/19 16:00 Mechanical Ventilator 06/22/19 16:00 60 06/22/19 16:00 77 10/13/19 15:26 76 29 60 06/22/19 15:00 79 30 109/54 97 Mechanical Ventilator 60 06/22/19 14:00 77 28 104/61 98 Mechanical Ventilator 60 06/22/19 13:00 80 27 114/73 98 Mechanical Ventilator 60 06/22/19 12:46 77 29 60 06/22/19 12:30 98.4 75 27 109/72 97 Mechanical Ventilator 60 06/22/19 12:08 82 06/22/19 12:00 60 06/22/19 12:00 Mechanical Ventilator 06/22/19 12:00 78 28 106/64 97 Mechanical Ventilator 60 06/22/19 11:16 72 30 60 06/22/19 11:00 80 31 117/61 97 Mechanical Ventilator 60 06/22/19 10:00 71 28 106/56 99 Mechanical Ventilator 60 06/22/19 09:21 71 25 60 06/22/19 09:00 67 24 111/66 99 Mechanical Ventilator 60 Labs: Labs Test 06/21/19 04:40 06/21/19 10:55 06/22/19 05:55 06/23/19 04:30 White Blood Count 13.8 K/UL (4.8-10.8) 12.7 K/UL (4.8-10.8) 15.6 K/UL (4.8-10.8) Red Blood Count 2.80 M/UL (4.70-6.10) 2.95 M/UL (4.70-6.10) 2.73 M/UL (4.70-6.10) Hemoglobin 8.1 G/DL (14.2-18.0) 8.6 G/DL (14.2-18.0) 7.9 G/DL (14.2-18.0) Hematocrit 24.7 % (42.0-52.0) 26.4 % (42.0-52.0) 24.3 % (42.0-52.0) Mean Corpuscular Volume 88 FL (80-99) 89 FL (80-99) 89 FL (80-99) Mean Corpuscular Hemoglobin 29.0 PG (27.0-31.0) 29.1 PG (27.0-31.0) 29.1 PG (27.0-31.0) Mean Corpuscular Hemoglobin Concent 32.8 G/DL (32.0-36.0) 32.6 G/DL (32.0-36.0) 32.7 G/DL (32.0-36.0) Red Cell Distribution Width 16.5 % (11.6-14.8) 16.9 % (11.6-14.8) 16.0 % (11.6-14.8) Platelet Count 62 K/UL (150-450) 84 K/UL (150-450) 107 K/UL (150-450) Mean Platelet Volume 7.9 FL (6.5-10.1) 8.6 FL (6.5-10.1) 7.9 FL (6.5-10.1) Neutrophils (%) (Auto) % (45.0-75.0) % (45.0-75.0) % (45.0-75.0) Lymphocytes (%) (Auto) % (20.0-45.0) % (20.0-45.0) % (20.0-45.0) Monocytes (%) (Auto) % (1.0-10.0) % (1.0-10.0) % (1.0-10.0) Eosinophils (%) (Auto) % (0.0-3.0) % (0.0-3.0) % (0.0-3.0) Basophils (%) (Auto) % (0.0-2.0) % (0.0-2.0) % (0.0-2.0) Differential Total Cells Counted 100 100 100 Neutrophils % (Manual) 76 % (45-75) 74 % (45-75) 88 % (45-75) Lymphocytes % (Manual) 21 % (20-45) 18 % (20-45) 8 % (20-45) Monocytes % (Manual) 2 % (1-10) 5 % (1-10) 2 % (1-10) Eosinophils % (Manual) 1 % (0-3) 3 % (0-3) 2 % (0-3) Basophils % (Manual) 0 % (0-2) 0 % (0-2) 0 % (0-2) Band Neutrophils 0 % (0-8) 0 % (0-8) 0 % (0-8) Platelet Estimate Decreased Decreased Decreased Platelet Morphology Normal Normal Normal Anisocytosis 1+ 1+ 1+ Erythrocyte Sedimentation Rate 126 MM/HR (0-20) Sodium Level 142 MMOL/L (136-145) 143 MMOL/L (136-145) 144 MMOL/L (136-145) Potassium Level 4.1 MMOL/L (3.5-5.1) 4.2 MMOL/L (3.5-5.1) 3.9 MMOL/L (3.5-5.1) Chloride Level 110 MMOL/L (98-107) 112 MMOL/L (98-107) 113 MMOL/L (98-107) Carbon Dioxide Level 23 MMOL/L (21-32) 24 MMOL/L (21-32) 27 MMOL/L (21-32) Anion Gap 9 mmol/L (5-15) 7 mmol/L (5-15) 5 mmol/L (5-15) Blood Urea Nitrogen 12 mg/dL (7-18) 11 mg/dL (7-18) 13 mg/dL (7-18) Creatinine 0.9 MG/DL (0.55-1.30) 1.0 MG/DL (0.55-1.30) 0.9 MG/DL (0.55-1.30) Estimat Glomerular Filtration Rate mL/min (>60) mL/min (>60) mL/min (>60) Glucose Level 128 MG/DL (74-106) 165 MG/DL (74-106) 154 MG/DL (74-106) Calcium Level 8.7 MG/DL (8.5-10.1) 8.7 MG/DL (8.5-10.1) 8.3 MG/DL (8.5-10.1) Total Bilirubin 0.5 MG/DL (0.2-1.0) 0.5 MG/DL (0.2-1.0) 0.4 MG/DL (0.2-1.0) Aspartate Amino Transf (AST/SGOT) 29 U/L (15-37) 19 U/L (15-37) 17 U/L (15-37) Alanine Aminotransferase (ALT/SGPT) 23 U/L (12-78) 20 U/L (12-78) 19 U/L (12-78) Alkaline Phosphatase 115 U/L (46-116) 105 U/L (46-116) 106 U/L (46-116) C-Reactive Protein, Quantitative 15.7 mg/dL (0.00-0.90) Total Protein 6.4 G/DL (6.4-8.2) 6.6 G/DL (6.4-8.2) 6.5 G/DL (6.4-8.2) Albumin 1.5 G/DL (3.4-5.0) 1.6 G/DL (3.4-5.0) 1.6 G/DL (3.4-5.0) Globulin 4.9 g/dL 5.0 g/dL 4.9 g/dL Albumin/Globulin Ratio 0.3 (1.0-2.7) 0.3 (1.0-2.7) 0.3 (1.0-2.7) Lipase 116 U/L (73-393) Hepatitis A IgM Antibody Negative (Negative) Hepatitis B Surface Antigen Negative (Negative) Hepatitis B Core IgM Antibody Negative (Negative) Hepatitis C Antibody >11.0 s/co ratio Arterial Blood pH 7.345 (7.350-7.450) Arterial Blood Partial Pressure CO2 38.3 mmHg (35.0-45.0) Arterial Blood Partial Pressure O2 64.1 mmHg (75.0-100.0) Arterial Blood HCO3 20.4 mmol/L (22.0-26.0) Arterial Blood Oxygen Saturation 90.7 % (95-100) Arterial Blood Base Excess -4.8 (-2-2) Balta Test Positive Hypochromasia 2+ Ammonia 28 umol/L (11-32) Nucleated Red Blood Cells 1 /100 WBC Magnesium Level 1.4 MG/DL (1.8-2.4) Pro-B-Type Natriuretic Peptide 4321 pg/mL (0-125) Objective: WDWN trach and vent noted anasarca reduced breath sounds bilaterally with scattered rhonchi [id number] without MRG NABS nontender no HSM; GT; no distention no CCE nonfocal poor LOC skin exam reviewed reviewed and examined Accucheck: 186 Bakari Montanez MD Jun 23, 2019 08:34
[2019-06-23] MEDS ORDERED: cefTRIAXone 1 GM in D5W 55 ML IVPB SCH (09:00)
[2019-06-23] MEDS ORDERED: Pantoprazole Inj IVP SCH (09:00)
--- NOTE | 2019-06-23 10:11 | Infectious Diseases Prog Note ---
Assessment/Plan Assessment/Plan A 1. Proteus & Serratia pneumonia 2. shock, resolved 3. cirrhosis 4.Ventilatory dependent respiratory failure 5. 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 Anemia 8. Thrombocytopenia P 1. continue Rocephin 2. poor prognosis Subjective ROS Limited/Unobtainable: Yes Neurologic: Reports: other - facial twiching Allergies: Coded Allergies: No Known Allergies (Unverified , 07/04/18) Objective Vital Signs Last 24 Hour Vital Signs Date Time Temp Pulse Resp B/P (MAP) Pulse Ox O2 Delivery O2 Flow Rate FiO2 06/23/19 09:25 74 27 60 06/23/19 08:00 86 06/23/19 07:42 86 32 60 06/23/19 05:00 77 29 60 06/23/19 04:00 98.4 67 24 116/74 99 Mechanical Ventilator 60 06/23/19 04:00 60 06/23/19 04:00 88 06/23/19 04:00 Mechanical Ventilator 06/23/19 02:35 74 34 60 06/23/19 01:24 78 32 60 06/23/19 00:00 Mechanical Ventilator 06/23/19 00:00 67 06/23/19 00:00 99.1 69 30 113/70 98 Mechanical Ventilator 60 06/22/19 23:15 77 31 60 06/22/19 20:40 79 32 60 06/22/19 20:00 75 06/22/19 20:00 98.8 96 29 99/61 98 Mechanical Ventilator 60 06/22/19 20:00 Mechanical Ventilator 06/22/19 20:00 60 06/22/19 19:00 81 30 60 06/22/19 16:43 79 26 60 06/22/19 16:00 97.4 80 29 116/53 98 Mechanical Ventilator 06/22/19 16:00 Mechanical Ventilator 06/22/19 16:00 60 06/22/19 16:00 77 06/22/19 15:26 76 29 60 06/22/19 15:00 79 30 109/54 97 Mechanical Ventilator 60 06/22/19 14:00 77 28 104/61 98 Mechanical Ventilator 60 06/22/19 13:00 80 27 114/73 98 Mechanical Ventilator 60 06/22/19 12:46 77 29 60 06/22/19 12:30 98.4 75 27 109/72 97 Mechanical Ventilator 60 06/22/19 12:08 82 06/22/19 12:00 60 06/22/19 12:00 Mechanical Ventilator 06/22/19 12:00 78 28 106/64 97 Mechanical Ventilator 60 06/22/19 11:16 72 30 60 06/22/19 11:00 80 31 117/61 97 Mechanical Ventilator 60 Height (Feet): 5 Height (Inches): 8.00 Weight (Pounds): 211 HEENT: status post trach Respiratory/Chest: lungs clear, other - on ventilator Cardiovascular: normal rate, other - RIJ central line Abdomen: soft, non tender, other - GT feeding Genitourinary: other - Vera catheter Extremities: other - edema of left arm Neurologic/Psychiatric: unresponsiveness, other - facial twiching Laboratory Tests Test 06/23/19 04:30 White Blood Count 15.6 K/UL (4.8-10.8) H Red Blood Count 2.73 M/UL (4.70-6.10) L Hemoglobin 7.9 G/DL (14.2-18.0) L Hematocrit 24.3 % (42.0-52.0) L Mean Corpuscular Volume 89 FL (80-99) Mean Corpuscular Hemoglobin 29.1 PG (27.0-31.0) Mean Corpuscular Hemoglobin Concent 32.7 G/DL (32.0-36.0) Red Cell Distribution Width 16.0 % (11.6-14.8) H Platelet Count 107 K/UL (150-450) L Mean Platelet Volume 7.9 FL (6.5-10.1) Neutrophils (%) (Auto) % (45.0-75.0) Lymphocytes (%) (Auto) % (20.0-45.0) Monocytes (%) (Auto) % (1.0-10.0) Eosinophils (%) (Auto) % (0.0-3.0) Basophils (%) (Auto) % (0.0-2.0) Differential Total Cells Counted 100 Neutrophils % (Manual) 88 % (45-75) H Lymphocytes % (Manual) 8 % (20-45) L Monocytes % (Manual) 2 % (1-10) Eosinophils % (Manual) 2 % (0-3) Basophils % (Manual) 0 % (0-2) Band Neutrophils 0 % (0-8) Nucleated Red Blood Cells 1 /100 WBC Platelet Estimate Decreased L Platelet Morphology Normal Anisocytosis 1+ Sodium Level 144 MMOL/L (136-145) Potassium Level 3.9 MMOL/L (3.5-5.1) Chloride Level 113 MMOL/L (98-107) H Carbon Dioxide Level 27 MMOL/L (21-32) Anion Gap 5 mmol/L (5-15) Blood Urea Nitrogen 13 mg/dL (7-18) Creatinine 0.9 MG/DL (0.55-1.30) Estimat Glomerular Filtration Rate mL/min (>60) Glucose Level 154 MG/DL (74-106) H Calcium Level 8.3 MG/DL (8.5-10.1) L Magnesium Level 1.4 MG/DL (1.8-2.4) L Total Bilirubin 0.4 MG/DL (0.2-1.0) Aspartate Amino Transf (AST/SGOT) 17 U/L (15-37) Alanine Aminotransferase (ALT/SGPT) 19 U/L (12-78) Alkaline Phosphatase 106 U/L (46-116) Pro-B-Type Natriuretic Peptide 4321 pg/mL (0-125) H Total Protein 6.5 G/DL (6.4-8.2) Albumin 1.6 G/DL (3.4-5.0) L Globulin 4.9 g/dL Albumin/Globulin Ratio 0.3 (1.0-2.7) L Current Medications Medications (Trade) Dose Ordered Sig/Derrick Route PRN Reason Start Time Stop Time Status Last Admin Dose Admin Ceftriaxone Sodium 1 gm/ Dextrose 55 ml @ 110 mls/hr DAILY IVPB 06/23/19 09:00 06/27/19 14:59 06/23/19 08:27 Chlorhexidine Gluconate (Gwendolyn-Hex 2%) 1 applic DAILY@2000 TOPIC 06/22/19 20:00 07/18/19 19:59 06/22/19 21:05 Dextrose (Dextrose 50%) 25 ml Q30M PRN IV Hypoglycemia 06/22/19 17:30 07/17/19 07:59 Dextrose (Dextrose 50%) 50 ml Q30M PRN IV Hypoglycemia 06/22/19 17:30 07/17/19 07:59 Insulin Aspart (NovoLOG) Q6HR SUBQ 06/23/19 12:00 07/22/19 17:44 Lansoprazole (Prevacid) 30 mg DAILY GT 06/23/19 09:00 07/23/19 08:59 Levetiracetam (Keppra) 1,000 mg Q12HR GT 06/22/19 21:00 07/19/19 20:59 06/23/19 08:28 Lorazepam (Ativan 2mg/ml 1ml) 1 mg Q2H PRN IV For Seizures 06/22/19 18:45 06/26/19 14:44 Octreotide Acetate 500 mcg/ Sodium Chloride 500 ml @ 25 mls/hr Q20H IV 06/23/19 09:00 07/23/19 08:59 Carlos Amaro MD Jun 23, 2019 10:11
[2019-06-23] MEDS: Octreotide Acetate 500 MCG in Sodium Chloride 499 ML IV SCH (11:08)
[2019-06-23 12:00] VITALS: BP 124/76
--- NOTE | 2019-06-23 14:31 | Surgery Progress Note ---
Surgery Progress Note Subjective Additional Comments Patient seen and examined at bedside with no acute events. comfortable in [facility]. labs noted. exam unchanged. leukocytosis. anemia. Objective Last 24 Hour Vital Signs Date Time Temp Pulse Resp B/P (MAP) Pulse Ox O2 Delivery O2 Flow Rate FiO2 06/23/19 13:20 75 29 60 06/23/19 12:00 Mechanical Ventilator 06/23/19 12:00 98.0 81 28 124/76 96 Mechanical Ventilator 60 06/23/19 12:00 60 06/23/19 11:38 79 30 60 06/23/19 09:25 74 27 60 06/23/19 08:00 Mechanical Ventilator 06/23/19 08:00 97.5 84 28 110/65 95 Mechanical Ventilator 60 06/23/19 08:00 86 06/23/19 08:00 60 06/23/19 07:42 86 32 60 06/23/19 05:00 77 29 60 06/23/19 04:00 98.4 67 24 116/74 99 Mechanical Ventilator 60 06/23/19 04:00 60 06/23/19 04:00 88 06/23/19 04:00 Mechanical Ventilator 06/23/19 02:35 74 34 60 06/23/19 01:24 78 32 60 06/23/19 00:00 Mechanical Ventilator 06/23/19 00:00 67 06/23/19 00:00 99.1 69 30 113/70 98 Mechanical Ventilator 60 06/22/19 23:15 77 31 60 06/22/19 20:40 79 32 60 06/22/19 20:00 75 06/22/19 20:00 98.8 96 29 99/61 98 Mechanical Ventilator 60 06/22/19 20:00 Mechanical Ventilator 06/22/19 20:00 60 06/22/19 19:00 81 30 60 06/22/19 16:43 79 26 60 06/22/19 16:00 97.4 80 29 116/53 98 Mechanical Ventilator 06/22/19 16:00 Mechanical Ventilator 06/22/19 16:00 60 06/22/19 16:00 77 06/22/19 15:26 76 29 60 06/22/19 15:00 79 30 109/54 97 Mechanical Ventilator 60 I&O Intake and Output 06/22/19 06/23/19 19:00 07:00 Intake Total 1020 ml 920 ml Output Total 265 ml 500 ml Balance 755 ml 420 ml Free Water 200 ml 30 ml IV Total 655 ml 450 ml Tube Feeding 125 ml 440 ml Other 40 ml Output Urine Total 265 ml 500 ml Dressing: saturated Wound: other Drains: other Cardiovascular: RSR Respiratory: decreased breath sounds Abdomen: soft, present bowel sounds, non-distended Extremities: no tenderness, no cyanosis Laboratory Tests Test 06/23/19 04:30 White Blood Count 15.6 K/UL (4.8-10.8) H Red Blood Count 2.73 M/UL (4.70-6.10) L Hemoglobin 7.9 G/DL (14.2-18.0) L Hematocrit 24.3 % (42.0-52.0) L Mean Corpuscular Volume 89 FL (80-99) Mean Corpuscular Hemoglobin 29.1 PG (27.0-31.0) Mean Corpuscular Hemoglobin Concent 32.7 G/DL (32.0-36.0) Red Cell Distribution Width 16.0 % (11.6-14.8) H Platelet Count 107 K/UL (150-450) L Mean Platelet Volume 7.9 FL (6.5-10.1) Neutrophils (%) (Auto) % (45.0-75.0) Lymphocytes (%) (Auto) % (20.0-45.0) Monocytes (%) (Auto) % (1.0-10.0) Eosinophils (%) (Auto) % (0.0-3.0) Basophils (%) (Auto) % (0.0-2.0) Differential Total Cells Counted 100 Neutrophils % (Manual) 88 % (45-75) H Lymphocytes % (Manual) 8 % (20-45) L Monocytes % (Manual) 2 % (1-10) Eosinophils % (Manual) 2 % (0-3) Basophils % (Manual) 0 % (0-2) Band Neutrophils 0 % (0-8) Nucleated Red Blood Cells 1 /100 WBC Platelet Estimate Decreased L Platelet Morphology Normal Anisocytosis 1+ Sodium Level 144 MMOL/L (136-145) Potassium Level 3.9 MMOL/L (3.5-5.1) Chloride Level 113 MMOL/L (98-107) H Carbon Dioxide Level 27 MMOL/L (21-32) Anion Gap 5 mmol/L (5-15) Blood Urea Nitrogen 13 mg/dL (7-18) Creatinine 0.9 MG/DL (0.55-1.30) Estimat Glomerular Filtration Rate mL/min (>60) Glucose Level 154 MG/DL (74-106) H Calcium Level 8.3 MG/DL (8.5-10.1) L Magnesium Level 1.4 MG/DL (1.8-2.4) L Total Bilirubin 0.4 MG/DL (0.2-1.0) Aspartate Amino Transf (AST/SGOT) 17 U/L (15-37) Alanine Aminotransferase (ALT/SGPT) 19 U/L (12-78) Alkaline Phosphatase 106 U/L (46-116) Pro-B-Type Natriuretic Peptide 4321 pg/mL (0-125) H Total Protein 6.5 G/DL (6.4-8.2) Albumin 1.6 G/DL (3.4-5.0) L Globulin 4.9 g/dL Albumin/Globulin Ratio 0.3 (1.0-2.7) L Plan Problems: (1) Leukocytosis (2) Decubitus skin ulcer Assessment & Plan: Pt presented on admission with multiple pressure injuries. Resolving pressure injury posterior neck under collar of trach. Base of wound has mostly pink epithelial with scattered small partial thickness wounds (L)2cm x (W)1.6cm. Tracheal stoma noted to have denuded area R side of stoma.. Resolving full thickness sacral pressure injury L sacrum (L)2.5cm x (W)1cm x (D) 0.2cm.[place] granulation at base of wound . Inferior but in close proximity to L sacral wound ,pt noted to have darker skin tone with scattered areas that are fluctuant and partially opened with small amt of sanguineous exudate noted (L) 9cm x (W)11.5cm. Resolving pressure injury noted to base of scrotum . Base of wound pink and dry (L)1cm x (W)0.8cm. Unstageable pressure injury noted to R heel extending into plantar aspect of R heel.At plantar aspect of heel soft necrosis noted that is oozing small amt brown purulent exudate(L)3cm x (W)3.5cm. Surrounding the area of necrosis, wound is black with fluctuance and marginal erythema along edges. Wound is malodorous.(L)8cm x (W)9.5cm. L heel is boggy with non-blanching erythema. Tx.Plan: Apply Cavilon Skin Barrier to posterior neck. Cover with Optifoam drsg. Change every 3 days and prn. Apply Moisture Barrier Paste to sacrum. Cover with Optifoam drsg. Change every 3days and prn. Apply Moisture Barrier Paste to Scrotum with each incontinence care. Apply Betadine to R heel . Cover with ABD pad and wrap with kerlix Daily and prn. Apply Cavilon Skin Barrier to R heel. Cover with Optifoam drsg. Change every 7 days and prn. APM/LARISSA Mattress overlay. Reposition at least every 2hours or as tolerated. Off-load heels with pillow. (3) Severe sepsis Assessment & Plan: Leukocytosis, lactic acidosis, hyperkalemia, hyponatremia. Severe sepsis Fluid resuscitation IV antibiotics as per infectious disease Trend labs US abd ordered eval liver/gb Wound care as above We will follow with recommendations Thank you for this consultation Abdoul Lucas Jun 23, 2019 14:31
--- NOTE | 2019-06-23 14:47 | General Progress Note ---
Assessment/Plan Problem List: (1) GIB (gastrointestinal bleeding) ICD Codes: K92.2 - Gastrointestinal hemorrhage, unspecified SNOMED: 06466345 (2) Anemia ICD Codes: D64.9 - Anemia, unspecified SNOMED: 314469254 Qualifiers: Qualified Codes: D64.9 - Anemia, unspecified (3) Hyponatremia ICD Codes: E87.1 - Hypo-osmolality and hyponatremia SNOMED: 23407256 (4) Renal insufficiency ICD Codes: N28.9 - Disorder of kidney and ureter, unspecified; R65.20 - Severe sepsis without septic shock SNOMED: 522815071, 620145769 (5) Pneumonia ICD Codes: J18.9 - Pneumonia, unspecified organism SNOMED: 012671380, 544643688 Qualifiers: Qualified Codes: J18.9 - Pneumonia, unspecified organism (6) Severe sepsis ICD Codes: A41.9 - Sepsis, unspecified organism; R65.20 - Severe sepsis without septic shock SNOMED: 64599028 (7) Decubitus skin ulcer ICD Codes: L89.90 - Pressure ulcer of unspecified site, unspecified stage SNOMED: 468952771 (8) Leukocytosis ICD Codes: D72.829 - Elevated white blood cell count, unspecified SNOMED: 301779026, 511787148 (9) Hyperglycemia ICD Codes: R73.9 - Hyperglycemia, unspecified SNOMED: 17449069 (10) Hypothermia ICD Codes: T68.XXXA - Hypothermia, initial encounter SNOMED: 660325825 Qualifiers: Qualified Codes: T68.XXXA - Hypothermia, initial encounter Status: stable, unchanged Assessment/Plan: cont current rx monitor off pressors iv abx per id follow up cultures PPI rx vent support resp rx suctioning as needed replace mg transfuse 1 unit try to wean fio2 poor prognosis Subjective ROS Limited/Unobtainable: Yes Constitutional: Reports: malaise, weakness HEENT: Reports: no symptoms Cardiovascular: Reports: edema Respiratory: Reports: shortness of breath, sputum Gastrointestinal/Abdominal: Reports: difficulty swallowing Genitourinary: Reports: no symptoms Neurologic/Psychiatric: Reports: pre-existing deficit, seizure Endocrine: Reports: no symptoms Hematologic/Lymphatic: Reports: anemia Allergies: Coded Allergies: No Known Allergies (Unverified , 07/04/18) All Systems: reviewed and negative except above Subjective remains off pressors. awake. no bleeding noted. no fever or chills. labs reviewed. on abx. still with facial twitching. on 60% fio2 Objective Last 24 Hour Vital Signs Date Time Temp Pulse Resp B/P (MAP) Pulse Ox O2 Delivery O2 Flow Rate FiO2 06/23/19 13:20 75 29 60 06/23/19 12:00 Mechanical Ventilator 06/23/19 12:00 98.0 81 28 124/76 96 Mechanical Ventilator 60 06/23/19 12:00 60 06/23/19 11:38 79 30 60 06/23/19 09:25 74 27 60 06/23/19 08:00 Mechanical Ventilator 06/23/19 08:00 97.5 84 28 110/65 95 Mechanical Ventilator 60 06/23/19 08:00 86 06/23/19 08:00 60 06/23/19 07:42 86 32 60 06/23/19 05:00 77 29 60 06/23/19 04:00 98.4 67 24 116/74 99 Mechanical Ventilator 60 06/23/19 04:00 60 06/23/19 04:00 88 06/23/19 04:00 Mechanical Ventilator 06/23/19 02:35 74 34 60 06/23/19 01:24 78 32 60 06/23/19 00:00 Mechanical Ventilator 06/23/19 00:00 67 06/23/19 00:00 99.1 69 30 113/70 98 Mechanical Ventilator 60 06/22/19 23:15 77 31 60 06/22/19 20:40 79 32 60 06/22/19 20:00 75 06/22/19 20:00 98.8 96 29 99/61 98 Mechanical Ventilator 60 06/22/19 20:00 Mechanical Ventilator 06/22/19 20:00 60 06/22/19 19:00 81 30 60 06/22/19 16:43 79 26 60 06/22/19 16:00 97.4 80 29 116/53 98 Mechanical Ventilator 06/22/19 16:00 Mechanical Ventilator 06/22/19 16:00 60 06/22/19 16:00 77 06/22/19 15:26 76 29 60 06/22/19 15:00 79 30 109/54 97 Mechanical Ventilator 60 Intake and Output 06/22/19 06/23/19 19:00 07:00 Intake Total 1020 ml 920 ml Output Total 265 ml 500 ml Balance 755 ml 420 ml Free Water 200 ml 30 ml IV Total 655 ml 450 ml Tube Feeding 125 ml 440 ml Other 40 ml Output Urine Total 265 ml 500 ml Laboratory Tests 06/23/19 04:30: White Blood Count 15.6H, Red Blood Count 2.73L, Hemoglobin 7.9L, Hematocrit 24.3L, Mean Corpuscular Volume 89, Mean Corpuscular Hemoglobin 29.1, Mean Corpuscular Hemoglobin Concent 32.7, Red Cell Distribution Width 16.0H, Platelet Count 107L, Mean Platelet Volume 7.9, Neutrophils (%) (Auto) , Lymphocytes (%) (Auto) , Monocytes (%) (Auto) , Eosinophils (%) (Auto) , Basophils (%) (Auto) , Differential Total Cells Counted 100, Neutrophils % ( Manual) 88H, Lymphocytes % (Manual) 8L, Monocytes % (Manual) 2, Eosinophils % ( Manual) 2, Basophils % (Manual) 0, Band Neutrophils 0, Nucleated Red Blood Cells 1, Platelet Estimate DecreasedL, Platelet Morphology Normal, Anisocytosis 1+, Sodium Level 144, Potassium Level 3.9, Chloride Level 113H, Carbon Dioxide Level 27, Anion Gap 5, Blood Urea Nitrogen 13, Creatinine 0.9, Estimat Glomerular Filtration Rate , Glucose Level 154H, Calcium Level 8.3L, Magnesium Level 1.4L, Total Bilirubin 0.4, Aspartate Amino Transf (AST/SGOT) 17, Alanine Aminotransferase (ALT/SGPT) 19, Alkaline Phosphatase 106, Pro-B-Type Natriuretic Peptide 4321H, Total Protein 6.5, Albumin 1.6L, Globulin 4.9, Albumin/Globulin Ratio 0.3L Height (Feet): 5 Height (Inches): 8.00 Weight (Pounds): 211 Objective General Appearance: WD/WN, lethargic Neck: supple Cardiovascular: regular rhythm Respiratory/Chest: chest wall non-tender, lungs clear, normal breath sounds, no respiratory distress, no accessory muscle use Abdomen: normal bowel sounds, non tender, soft, no organomegaly, no mass Edema: mild edema Neurologic: disoriented, unresponsive, aphasia Chano Galeana MD Jun 23, 2019 14:47
[2019-06-23 16:00] VITALS: BP 98/51
--- NOTE | 2019-06-23 16:59 | Diagnostic Imaging Report ---
Indication: Abnormal white blood cells, abnormal liver function tests, abnormal renal function tests Technique: Quiles-scale and duplex images of the upper abdomen were obtained Comparison: 07/07/2018 Findings: Gallbladder is unremarkable, without stones, wall thickening, nor pericholecystic fluid. Sonographic Nunez's could not be assessed due to patient condition. Common bile duct measures 7 mm in diameter. No intrahepatic biliary ductal dilatation. Liver demonstrates normal echogenicity, no focal abnormality. Portal vein and hepatic veins are patent. Pancreas is unremarkable. Spleen is unremarkable. Left kidney measures 11.3 cm in length. Right kidney measures 10.6 cm length. Both kidneys demonstrate normal echogenicity. There is no hydronephrosis. The left kidney is not well visualized, however. Incidentally noted are bilateral pleural effusions. Abdominal aorta is partially obscured by bowel gas, visualized portions are non-aneurysmal . Impression: Negative for gallstones. Mildly ectatic common bile duct. Possibly age-related, correlate with liver function tests, consider MRCP for better characterization if clinically indicated Limited exam, with inability to visualize portions of the abdominal aorta and poor visualization of the left kidney Bilateral pleural effusions
--- NOTE | 2019-06-23 17:11 | Nephrology Progress Note ---
Assessment/Plan Problem List: (1) POPPY (acute kidney injury) (2) Hyponatremia (3) Renal insufficiency Plan improving Na and poppy, reducing iv fluid, still with poor prognosis with severely low albumin ventilator dependent seizures vs twitching, continue maintenance IV fluids Subjective ROS Limited/Unobtainable: Yes Objective Objective Last 24 Hour Vital Signs Date Time Temp Pulse Resp B/P (MAP) Pulse Ox O2 Delivery O2 Flow Rate FiO2 06/23/19 16:00 Mechanical Ventilator 06/23/19 16:00 60 06/23/19 15:13 69 30 60 06/23/19 13:20 75 29 60 06/23/19 12:00 Mechanical Ventilator 06/23/19 12:00 98.0 81 28 124/76 96 Mechanical Ventilator 60 06/23/19 12:00 85 06/23/19 12:00 60 06/23/19 11:38 79 30 60 06/23/19 09:25 74 27 60 06/23/19 08:00 Mechanical Ventilator 06/23/19 08:00 97.5 84 28 110/65 95 Mechanical Ventilator 60 06/23/19 08:00 86 06/23/19 08:00 60 06/23/19 07:42 86 32 60 06/23/19 05:00 77 29 60 06/23/19 04:00 98.4 67 24 116/74 99 Mechanical Ventilator 60 06/23/19 04:00 60 06/23/19 04:00 88 06/23/19 04:00 Mechanical Ventilator 06/23/19 02:35 74 34 60 06/23/19 01:24 78 32 60 06/23/19 00:00 Mechanical Ventilator 06/23/19 00:00 67 06/23/19 00:00 99.1 69 30 113/70 98 Mechanical Ventilator 60 06/22/19 23:15 77 31 60 06/22/19 20:40 79 32 60 06/22/19 20:00 75 06/22/19 20:00 98.8 96 29 99/61 98 Mechanical Ventilator 60 06/22/19 20:00 Mechanical Ventilator 06/22/19 20:00 60 06/22/19 19:00 81 30 60 Intake and Output 06/22/19 06/23/19 18:59 06:59 Intake Total 1045 ml 875 ml Output Total 285 ml 500 ml Balance 760 ml 375 ml Free Water 200 ml 30 ml IV Total 680 ml 450 ml Tube Feeding 125 ml 395 ml Other 40 ml Output Urine Total 285 ml 500 ml Laboratory Tests 06/23/19 04:30: White Blood Count 15.6H, Red Blood Count 2.73L, Hemoglobin 7.9L, Hematocrit 24.3L, Mean Corpuscular Volume 89, Mean Corpuscular Hemoglobin 29.1, Mean Corpuscular Hemoglobin Concent 32.7, Red Cell Distribution Width 16.0H, Platelet Count 107L, Mean Platelet Volume 7.9, Neutrophils (%) (Auto) , Lymphocytes (%) (Auto) , Monocytes (%) (Auto) , Eosinophils (%) (Auto) , Basophils (%) (Auto) , Differential Total Cells Counted 100, Neutrophils % ( Manual) 88H, Lymphocytes % (Manual) 8L, Monocytes % (Manual) 2, Eosinophils % ( Manual) 2, Basophils % (Manual) 0, Band Neutrophils 0, Nucleated Red Blood Cells 1, Platelet Estimate DecreasedL, Platelet Morphology Normal, Anisocytosis 1+, Sodium Level 144, Potassium Level 3.9, Chloride Level 113H, Carbon Dioxide Level 27, Anion Gap 5, Blood Urea Nitrogen 13, Creatinine 0.9, Estimat Glomerular Filtration Rate , Glucose Level 154H, Calcium Level 8.3L, Magnesium Level 1.4L, Total Bilirubin 0.4, Aspartate Amino Transf (AST/SGOT) 17, Alanine Aminotransferase (ALT/SGPT) 19, Alkaline Phosphatase 106, Pro-B-Type Natriuretic Peptide 4321H, Total Protein 6.5, Albumin 1.6L, Globulin 4.9, Albumin/Globulin Ratio 0.3L Height (Feet): 5 Height (Inches): 8.00 Weight (Pounds): 211 General Appearance: no apparent distress, other EENT: other - facial twitch Cardiovascular: regular rhythm Respiratory/Chest: rhonchi - bilaterally Abdomen: non tender, soft Extremities: trace edema Neurologic: unresponsive Nik Deras MD Jun 23, 2019 17:11
[2019-06-23 20:00] VITALS: BP 127/73
[2019-06-23] MEDS: Dyna-Hex 2% Top Sol 2oz TOPIC SCH (20:23)
[2019-06-24] VITALS: BP 130/65
[2019-06-24] MEDS: NovoLOG Insulin Flexpen SUBQ SCH ×4 (00:28→17:13)
[2019-06-24 04:00] VITALS: BP 129/79
--- NOTE | 2019-06-24 05:15 | Progress Note ---
DATE: 06/23/2019 CARDIOLOGY PROGRESS NOTE SUBJECTIVE: Off pressors, so on ventilator support. No fevers. Oxygenating adequately on 60% FiO2. Still has facial twitching. OBJECTIVE: VITAL SIGNS: Blood pressure 127/73, pulse 69, respirations 24, and afebrile. LUNGS: Coarse breath sounds. HEART: Regular rhythm and rate. Normal S1, S2. G-tube intact. ABDOMEN: Soft. EXTREMITIES: No edema. LABORATORY DATA: White count 15.6 and hemoglobin 7.9. Potassium 3.9, BUN 13, and creatinine 0.9. Magnesium 1.4. Albumin 1.6. Pro-natriuretic peptide 4300. IMPRESSION: 1. Shock, recovered. 2. Sepsis persists. 3. Hypomagnesemia. 4. Severe protein-calorie malnutrition. 5. Acute on chronic diastolic congestive heart failure. 6. Chronic ventilator-dependent respiratory failure. PLAN: 1. Antimicrobials. 2. Respiratory hygiene. 3. Antiseizure therapy. 4. Taper IV fluids. 5. Nutritional support. 6. IV magnesium. [place] M.D. DR: DESMOND JOB#: [id number] CC:
[2019-06-24] MEDS: Octreotide Acetate 500 MCG in Sodium Chloride 499 ML IV SCH (05:33)
[2019-06-24 05:51] LABS: INR 1.1 (0.9-1.1)
[2019-06-24 06:05] LABS: ALANINE AMINOTRANSFERASE 17 U/L (12-78); ALBUMIN 1.5 G/DL (3.4-5.0); ALBUMIN/GLOBULIN RATIO 0.3 (1.0-2.7); ALKALINE PHOSPHATASE 111 U/L (46-116); AMYLASE 82 U/L (25-115); ANION GAP 5 mmol/L (5-15); ASPARTATE AMINO TRANSFERASE 25 U/L (15-37); BILIRUBIN,TOTAL 0.3 MG/DL (0.2-1.0); BLOOD UREA NITROGEN 13 mg/dL (7-18); CALCIUM 7.8 MG/DL (8.5-10.1); CARBON DIOXIDE 27 MMOL/L (21-32); CHLORIDE 112 MMOL/L (98-107); CREATININE 0.8 MG/DL (0.55-1.30); POTASSIUM 4.2 MMOL/L (3.5-5.1); SODIUM 144 MMOL/L (136-145)
[2019-06-24 06:09] LABS: BASOPHILS % (AUTO) 0.3 % (0.0-2.0); EOSINOPHILS % (AUTO) 2.1 % (0.0-3.0); HEMATOCRIT 27.7 % (42.0-52.0); HEMOGLOBIN 9.1 G/DL (14.2-18.0); LYMPHOCYTES % (AUTO) 14.7 % (20.0-45.0); MEAN CORPUSCULAR VOLUME 88 FL (80-99); MONOCYTES % (AUTO) 3.8 % (1.0-10.0); NEUTROPHILS % (AUTO) 79.1 % (45.0-75.0); PLATELET COUNT 135 K/UL (150-450); RED BLOOD COUNT 3.13 M/UL (4.70-6.10); WHITE BLOOD COUNT 16.7 K/UL (4.8-10.8)
[2019-06-24 08:00] VITALS: BP 130/67
[2019-06-24] MEDS: cefTRIAXone 1 GM in NS 55 ML IVPB SCH (08:34)
[2019-06-24] MEDS: levETIRAcetam 500mg/5ml Liquid GT SCH ×2 (08:35→20:55)
--- NOTE | 2019-06-24 09:07 | General Progress Note ---
Assessment/Plan Problem List: (1) GIB (gastrointestinal bleeding) ICD Codes: K92.2 - Gastrointestinal hemorrhage, unspecified SNOMED: 70658276 (2) Anemia ICD Codes: D64.9 - Anemia, unspecified SNOMED: 531724391 Qualifiers: Qualified Codes: D64.9 - Anemia, unspecified (3) Hyponatremia ICD Codes: E87.1 - Hypo-osmolality and hyponatremia SNOMED: 53213780 (4) Renal insufficiency ICD Codes: N28.9 - Disorder of kidney and ureter, unspecified; R65.20 - Severe sepsis without septic shock SNOMED: 140508996, 147224961 (5) Pneumonia ICD Codes: J18.9 - Pneumonia, unspecified organism SNOMED: 635199809, 458595657 Qualifiers: Qualified Codes: J18.9 - Pneumonia, unspecified organism (6) Severe sepsis ICD Codes: A41.9 - Sepsis, unspecified organism; R65.20 - Severe sepsis without septic shock SNOMED: 24881324 (7) Decubitus skin ulcer ICD Codes: L89.90 - Pressure ulcer of unspecified site, unspecified stage SNOMED: 948759888 (8) Leukocytosis ICD Codes: D72.829 - Elevated white blood cell count, unspecified SNOMED: 854715555, 772530752 (9) Hyperglycemia ICD Codes: R73.9 - Hyperglycemia, unspecified SNOMED: 40473923 (10) Hypothermia ICD Codes: T68.XXXA - Hypothermia, initial encounter SNOMED: 751306457 Qualifiers: Qualified Codes: T68.XXXA - Hypothermia, initial encounter Status: stable, unchanged Assessment/Plan: cont current rx monitor off pressors iv abx per id follow up cultures PPI rx vent support resp rx suctioning as needed try to wean fio2 poor prognosis Subjective ROS Limited/Unobtainable: Yes Constitutional: Reports: malaise, weakness HEENT: Reports: no symptoms Cardiovascular: Reports: edema Respiratory: Reports: no symptoms Gastrointestinal/Abdominal: Reports: difficulty swallowing Genitourinary: Reports: no symptoms Neurologic/Psychiatric: Reports: pre-existing deficit, seizure Endocrine: Reports: no symptoms Hematologic/Lymphatic: Reports: anemia Allergies: Coded Allergies: No Known Allergies (Unverified , 07/04/18) All Systems: reviewed and negative except above Subjective remains off pressors. awake. no bleeding noted. no fever or chills. labs reviewed. on abx. still with facial twitching. on 60% fio2. Objective Last 24 Hour Vital Signs Date Time Temp Pulse Resp B/P (MAP) Pulse Ox O2 Delivery O2 Flow Rate FiO2 06/24/19 08:00 Mechanical Ventilator 06/24/19 08:00 60 06/24/19 08:00 98.3 89 34 130/67 99 Mechanical Ventilator 60 06/24/19 07:00 78 38 80 06/24/19 05:07 75 32 80 06/24/19 04:00 99.0 74 28 129/79 99 Mechanical Ventilator 60 06/24/19 04:00 60 06/24/19 04:00 Mechanical Ventilator 06/24/19 03:36 96 06/24/19 03:30 88 33 80 06/24/19 01:30 92 29 80 06/24/19 00:00 99.6 77 28 130/65 100 Mechanical Ventilator 60 06/24/19 00:00 Mechanical Ventilator 06/24/19 00:00 60 06/23/19 23:33 71 06/23/19 23:30 69 27 70 06/23/19 21:30 65 28 70 06/23/19 20:00 60 06/23/19 20:00 98.8 69 24 127/73 96 Mechanical Ventilator 60 06/23/19 20:00 Mechanical Ventilator 06/23/19 19:30 67 28 70 06/23/19 19:04 69 06/23/19 17:24 76 32 80 06/23/19 16:00 70 06/23/19 16:00 Mechanical Ventilator 06/23/19 16:00 60 06/23/19 16:00 98.8 68 28 98/51 96 Mechanical Ventilator 60 06/23/19 15:13 69 30 60 06/23/19 13:20 75 29 60 06/23/19 12:00 Mechanical Ventilator 06/23/19 12:00 98.0 81 28 124/76 96 Mechanical Ventilator 60 06/23/19 12:00 85 06/23/19 12:00 60 06/23/19 11:38 79 30 60 06/23/19 09:25 74 27 60 Intake and Output 06/23/19 06/24/19 19:00 07:00 Intake Total 1520 ml 937 ml Output Total 985 ml 930 ml Balance 535 ml 7 ml Free Water 50 ml IV Total 560 ml 287 ml Tube Feeding 500 ml 600 ml Blood Product 400 ml Other 60 ml Output Urine Total 985 ml 930 ml # Voids 2 # Bowel Movements 2 Laboratory Tests 06/24/19 04:00: White Blood Count 16.7H, Red Blood Count 3.13L, Hemoglobin 9.1L, Hematocrit 27.7L, Mean Corpuscular Volume 88, Mean Corpuscular Hemoglobin 29.3, Mean Corpuscular Hemoglobin Concent 33.1, Red Cell Distribution Width 16.0H, Platelet Count 135L, Mean Platelet Volume 7.3, Neutrophils (%) (Auto) 79.1H, Lymphocytes (%) (Auto) 14.7L, Monocytes (%) (Auto) 3.8, Eosinophils (%) (Auto) 2.1, Basophils (%) (Auto) 0.3, Erythrocyte Sedimentation Rate 88H, Prothrombin Time 11.7H, Prothromb Time International Ratio 1.1, Activated Partial Thromboplast Time 27, Sodium Level 144, Potassium Level 4.2, Chloride Level 112H , Carbon Dioxide Level 27, Anion Gap 5, Blood Urea Nitrogen 13, Creatinine 0.8, Estimat Glomerular Filtration Rate , Glucose Level 199H, Calcium Level 7.8L, Magnesium Level 1.7L, Total Bilirubin 0.3, Aspartate Amino Transf (AST/SGOT) 25 , Alanine Aminotransferase (ALT/SGPT) 17, Alkaline Phosphatase 111, C-Reactive Protein, Quantitative 9.0H, Total Protein 6.5, Albumin 1.5L, Globulin 5.0, Albumin/Globulin Ratio 0.3L, Amylase Level 82, Lipase 228 Height (Feet): 5 Height (Inches): 8.00 Weight (Pounds): 212 Objective General Appearance: WD/WN, lethargic Neck: supple Cardiovascular: regular rhythm Respiratory/Chest: chest wall non-tender, lungs clear, normal breath sounds, no respiratory distress, no accessory muscle use Abdomen: normal bowel sounds, non tender, soft, no organomegaly, no mass Edema: mild edema Neurologic: disoriented, unresponsive, aphasia Chano Galeana MD Jun 24, 2019 09:07
--- NOTE | 2019-06-24 10:47 | Infectious Diseases Prog Note ---
"Assessment/Plan Assessment/Plan antibiotics : ceftriaxone A 1. proteus | serratia pneumonia 2. shock resolved 3. cirrhosis 4. respiratory failure 5. seizures P 1. continue ceftriaxone 4 more days 2. will follow up cultures Subjective ROS Limited/Unobtainable: Yes Allergies: Coded Allergies: No Known Allergies (Unverified , 07/04/18) Objective Vital Signs Last 24 Hour Vital Signs Date Time Temp Pulse Resp B/P (MAP) Pulse Ox O2 Delivery O2 Flow Rate FiO2 06/24/19 09:26 76 30 80 06/24/19 08:00 Mechanical Ventilator 06/24/19 08:00 60 06/24/19 08:00 98.3 89 34 130/67 99 Mechanical Ventilator 60 06/24/19 08:00 94 06/24/19 07:00 78 38 80 06/24/19 05:07 75 32 80 06/24/19 04:00 99.0 74 28 129/79 99 Mechanical Ventilator 60 06/24/19 04:00 60 06/24/19 04:00 Mechanical Ventilator 06/24/19 03:36 96 06/24/19 03:30 88 33 80 06/24/19 01:30 92 29 80 06/24/19 00:00 99.6 77 28 130/65 100 Mechanical Ventilator 60 06/24/19 00:00 Mechanical Ventilator 06/24/19 00:00 60 06/23/19 23:33 71 06/23/19 23:30 69 27 70 06/23/19 21:30 65 28 70 06/23/19 20:00 60 06/23/19 20:00 98.8 69 24 127/73 96 Mechanical Ventilator 60 06/23/19 20:00 Mechanical Ventilator 06/23/19 19:30 67 28 70 06/23/19 19:04 69 06/23/19 17:24 76 32 80 06/23/19 16:00 70 06/23/19 16:00 Mechanical Ventilator 06/23/19 16:00 60 06/23/19 16:00 98.8 68 28 98/51 96 Mechanical Ventilator 60 06/23/19 15:13 69 30 60 06/23/19 13:20 75 29 60 06/23/19 12:00 Mechanical Ventilator 06/23/19 12:00 98.0 81 28 124/76 96 Mechanical Ventilator 60 06/23/19 12:00 85 06/23/19 12:00 60 06/23/19 11:38 79 30 60 Height (Feet): 5 Height (Inches): 8.00 Weight (Pounds): 212 HEENT: status post trach Respiratory/Chest: rhonchi - bilaterally Cardiovascular: normal rate, regular rhythm, no gallop/murmur Abdomen: soft, non tender, other - GT Extremities: other - + edema Laboratory Tests Test 06/24/19 04:00 White Blood Count 16.7 K/UL (4.8-10.8) H Red Blood Count 3.13 M/UL (4.70-6.10) L Hemoglobin 9.1 G/DL (14.2-18.0) L Hematocrit 27.7 % (42.0-52.0) L Mean Corpuscular Volume 88 FL (80-99) Mean Corpuscular Hemoglobin 29.3 PG (27.0-31.0) Mean Corpuscular Hemoglobin Concent 33.1 G/DL (32.0-36.0) Red Cell Distribution Width 16.0 % (11.6-14.8) H Platelet Count 135 K/UL (150-450) L Mean Platelet Volume 7.3 FL (6.5-10.1) Neutrophils (%) (Auto) 79.1 % (45.0-75.0) H Lymphocytes (%) (Auto) 14.7 % (20.0-45.0) L Monocytes (%) (Auto) 3.8 % (1.0-10.0) Eosinophils (%) (Auto) 2.1 % (0.0-3.0) Basophils (%) (Auto) 0.3 % (0.0-2.0) Erythrocyte Sedimentation Rate 88 MM/HR (0-20) H Prothrombin Time 11.7 SEC (9.30-11.50) H Prothromb Time International Ratio 1.1 (0.9-1.1) Activated Partial Thromboplast Time 27 SEC (23-33) Sodium Level 144 MMOL/L (136-145) Potassium Level 4.2 MMOL/L (3.5-5.1) Chloride Level 112 MMOL/L (98-107) H Carbon Dioxide Level 27 MMOL/L (21-32) Anion Gap 5 mmol/L (5-15) Blood Urea Nitrogen 13 mg/dL (7-18) Creatinine 0.8 MG/DL (0.55-1.30) Estimat Glomerular Filtration Rate mL/min (>60) Glucose Level 199 MG/DL (74-106) H Calcium Level 7.8 MG/DL (8.5-10.1) L Magnesium Level 1.7 MG/DL (1.8-2.4) L Total Bilirubin 0.3 MG/DL (0.2-1.0) Aspartate Amino Transf (AST/SGOT) 25 U/L (15-37) Alanine Aminotransferase (ALT/SGPT) 17 U/L (12-78) Alkaline Phosphatase 111 U/L (46-116) C-Reactive Protein, Quantitative 9.0 mg/dL (0.00-0.90) H Total Protein 6.5 G/DL (6.4-8.2) Albumin 1.5 G/DL (3.4-5.0) L Globulin 5.0 g/dL Albumin/Globulin Ratio 0.3 (1.0-2.7) L Amylase Level 82 U/L (25-115) Lipase 228 U/L (73-393) Current Medications Medications (Trade) Dose Ordered Sig/Derrick Route PRN Reason Start Time Stop Time Status Last Admin Dose Admin Ceftriaxone Sodium 1 gm/ Sodium Chloride 55 ml @ 110 mls/hr DAILY IVPB 06/24/19 09:00 06/27/19 14:59 06/24/19 08:34 Chlorhexidine Gluconate (Gwendolyn-Hex 2%) 1 applic DAILY@2000 TOPIC 06/22/19 20:00 07/18/19 19:59 06/23/19 20:23 Dextrose (Dextrose 50%) 25 ml Q30M PRN IV Hypoglycemia 06/22/19 17:30 07/17/19 07:59 Dextrose (Dextrose 50%) 50 ml Q30M PRN IV Hypoglycemia 06/22/19 17:30 07/17/19 07:59 Insulin Aspart (NovoLOG) Q6HR SUBQ 06/23/19 12:00 07/22/19 17:44 06/24/19 06:02 Lansoprazole (Prevacid) 30 mg DAILY GT 06/23/19 09:00 07/23/19 08:59 06/24/19 08:35 Levetiracetam (Keppra) 1,000 mg Q12HR GT 06/22/19 21:00 07/19/19 20:59 06/24/19 08:35 Lorazepam (Ativan 2mg/ml 1ml) 1 mg Q2H PRN IV For Seizures 06/22/19 18:45 06/26/19 14:44 Magnesium Sulfate 100 ml @ 100 mls/hr Q1H IVPB 06/24/19 09:00 06/24/19 10:59 06/24/19 10:11 Octreotide Acetate 500 mcg/ Sodium Chloride 500 ml @ 25 mls/hr Q20H IV 06/23/19 09:00 07/23/19 08:59 06/24/19 05:33 Rosalinda Guerrero MD Jun 24, 2019 10:47"
[2019-06-24 12:00] VITALS: BP 123/68
--- NOTE | 2019-06-24 13:06 | Nephrology Progress Note ---
Assessment/Plan Problem List: (1) POPPY (acute kidney injury) (2) Hyponatremia (3) Renal insufficiency Plan improving Na and poppy, reducing iv fluid, still with poor prognosis with severely low albumin ventilator dependent seizures vs twitching, continue maintenance IV fluids Subjective ROS Limited/Unobtainable: Yes Objective Objective Last 24 Hour Vital Signs Date Time Temp Pulse Resp B/P (MAP) Pulse Ox O2 Delivery O2 Flow Rate FiO2 06/24/19 12:55 74 36 80 06/24/19 12:00 60 06/24/19 12:00 Mechanical Ventilator 06/24/19 10:57 80 32 80 06/24/19 09:26 76 30 80 06/24/19 08:00 Mechanical Ventilator 06/24/19 08:00 60 06/24/19 08:00 98.3 89 34 130/67 99 Mechanical Ventilator 60 06/24/19 08:00 94 06/24/19 07:00 78 38 80 06/24/19 05:07 75 32 80 06/24/19 04:00 99.0 74 28 129/79 99 Mechanical Ventilator 60 06/24/19 04:00 60 06/24/19 04:00 Mechanical Ventilator 06/24/19 03:36 96 06/24/19 03:30 88 33 80 06/24/19 01:30 92 29 80 06/24/19 00:00 99.6 77 28 130/65 100 Mechanical Ventilator 60 06/24/19 00:00 Mechanical Ventilator 06/24/19 00:00 60 06/23/19 23:33 71 06/23/19 23:30 69 27 70 06/23/19 21:30 65 28 70 06/23/19 20:00 60 06/23/19 20:00 98.8 69 24 127/73 96 Mechanical Ventilator 60 06/23/19 20:00 Mechanical Ventilator 06/23/19 19:30 67 28 70 06/23/19 19:04 69 06/23/19 17:24 76 32 80 06/23/19 16:00 70 06/23/19 16:00 Mechanical Ventilator 06/23/19 16:00 60 06/23/19 16:00 98.8 68 28 98/51 96 Mechanical Ventilator 60 06/23/19 15:13 69 30 60 06/23/19 13:20 75 29 60 Intake and Output 06/23/19 06/24/19 19:00 07:00 Intake Total 1520 ml 937 ml Output Total 985 ml 930 ml Balance 535 ml 7 ml Free Water 50 ml IV Total 560 ml 287 ml Tube Feeding 500 ml 600 ml Blood Product 400 ml Other 60 ml Output Urine Total 985 ml 930 ml # Voids 2 # Bowel Movements 2 Laboratory Tests 06/24/19 04:00: White Blood Count 16.7H, Red Blood Count 3.13L, Hemoglobin 9.1L, Hematocrit 27.7L, Mean Corpuscular Volume 88, Mean Corpuscular Hemoglobin 29.3, Mean Corpuscular Hemoglobin Concent 33.1, Red Cell Distribution Width 16.0H, Platelet Count 135L, Mean Platelet Volume 7.3, Neutrophils (%) (Auto) 79.1H, Lymphocytes (%) (Auto) 14.7L, Monocytes (%) (Auto) 3.8, Eosinophils (%) (Auto) 2.1, Basophils (%) (Auto) 0.3, Erythrocyte Sedimentation Rate 88H, Prothrombin Time 11.7H, Prothromb Time International Ratio 1.1, Activated Partial Thromboplast Time 27, Sodium Level 144, Potassium Level 4.2, Chloride Level 112H , Carbon Dioxide Level 27, Anion Gap 5, Blood Urea Nitrogen 13, Creatinine 0.8, Estimat Glomerular Filtration Rate , Glucose Level 199H, Calcium Level 7.8L, Magnesium Level 1.7L, Total Bilirubin 0.3, Aspartate Amino Transf (AST/SGOT) 25 , Alanine Aminotransferase (ALT/SGPT) 17, Alkaline Phosphatase 111, C-Reactive Protein, Quantitative 9.0H, Total Protein 6.5, Albumin 1.5L, Globulin 5.0, Albumin/Globulin Ratio 0.3L, Amylase Level 82, Lipase 228 Height (Feet): 5 Height (Inches): 8.00 Weight (Pounds): 212 General Appearance: lethargic EENT: normal ENT inspection Cardiovascular: regular rhythm Respiratory/Chest: rhonchi - bilaterally Abdomen: non tender Extremities: moderate edema Neurologic: unresponsive Nik Deras MD Jun 24, 2019 13:06
--- NOTE | 2019-06-24 15:16 | Surgery Progress Note ---
Surgery Progress Note Subjective Additional Comments midline removed left upper extremity picc placed labs noted exam stable Objective Last 24 Hour Vital Signs Date Time Temp Pulse Resp B/P (MAP) Pulse Ox O2 Delivery O2 Flow Rate FiO2 06/24/19 12:55 74 36 80 06/24/19 12:00 60 06/24/19 12:00 Mechanical Ventilator 06/24/19 12:00 104 06/24/19 12:00 98.0 88 30 123/68 95 Mechanical Ventilator 60 06/24/19 10:57 80 32 80 06/24/19 09:26 76 30 80 06/24/19 08:00 Mechanical Ventilator 06/24/19 08:00 60 06/24/19 08:00 98.3 89 34 130/67 99 Mechanical Ventilator 60 06/24/19 08:00 94 06/24/19 07:00 78 38 80 06/24/19 05:07 75 32 80 06/24/19 04:00 99.0 74 28 129/79 99 Mechanical Ventilator 60 06/24/19 04:00 60 06/24/19 04:00 Mechanical Ventilator 06/24/19 03:36 96 06/24/19 03:30 88 33 80 06/24/19 01:30 92 29 80 06/24/19 00:00 99.6 77 28 130/65 100 Mechanical Ventilator 60 06/24/19 00:00 Mechanical Ventilator 06/24/19 00:00 60 06/23/19 23:33 71 06/23/19 23:30 69 27 70 06/23/19 21:30 65 28 70 06/23/19 20:00 60 06/23/19 20:00 98.8 69 24 127/73 96 Mechanical Ventilator 60 06/23/19 20:00 Mechanical Ventilator 06/23/19 19:30 67 28 70 06/23/19 19:04 69 06/23/19 17:24 76 32 80 06/23/19 16:00 70 06/23/19 16:00 Mechanical Ventilator 06/23/19 16:00 60 06/23/19 16:00 98.8 68 28 98/51 96 Mechanical Ventilator 60 I&O Intake and Output 06/23/19 06/24/19 19:00 07:00 Intake Total 1520 ml 937 ml Output Total 985 ml 930 ml Balance 535 ml 7 ml Free Water 50 ml IV Total 560 ml 287 ml Tube Feeding 500 ml 600 ml Blood Product 400 ml Other 60 ml Output Urine Total 985 ml 930 ml # Voids 2 # Bowel Movements 2 Dressing: dry Wound: clean Cardiovascular: RSR Respiratory: decreased breath sounds Abdomen: soft, present bowel sounds, non-distended Extremities: no tenderness, no cyanosis Laboratory Tests Test 06/24/19 04:00 White Blood Count 16.7 K/UL (4.8-10.8) H Red Blood Count 3.13 M/UL (4.70-6.10) L Hemoglobin 9.1 G/DL (14.2-18.0) L Hematocrit 27.7 % (42.0-52.0) L Mean Corpuscular Volume 88 FL (80-99) Mean Corpuscular Hemoglobin 29.3 PG (27.0-31.0) Mean Corpuscular Hemoglobin Concent 33.1 G/DL (32.0-36.0) Red Cell Distribution Width 16.0 % (11.6-14.8) H Platelet Count 135 K/UL (150-450) L Mean Platelet Volume 7.3 FL (6.5-10.1) Neutrophils (%) (Auto) 79.1 % (45.0-75.0) H Lymphocytes (%) (Auto) 14.7 % (20.0-45.0) L Monocytes (%) (Auto) 3.8 % (1.0-10.0) Eosinophils (%) (Auto) 2.1 % (0.0-3.0) Basophils (%) (Auto) 0.3 % (0.0-2.0) Erythrocyte Sedimentation Rate 88 MM/HR (0-20) H Prothrombin Time 11.7 SEC (9.30-11.50) H Prothromb Time International Ratio 1.1 (0.9-1.1) Activated Partial Thromboplast Time 27 SEC (23-33) Sodium Level 144 MMOL/L (136-145) Potassium Level 4.2 MMOL/L (3.5-5.1) Chloride Level 112 MMOL/L (98-107) H Carbon Dioxide Level 27 MMOL/L (21-32) Anion Gap 5 mmol/L (5-15) Blood Urea Nitrogen 13 mg/dL (7-18) Creatinine 0.8 MG/DL (0.55-1.30) Estimat Glomerular Filtration Rate mL/min (>60) Glucose Level 199 MG/DL (74-106) H Calcium Level 7.8 MG/DL (8.5-10.1) L Magnesium Level 1.7 MG/DL (1.8-2.4) L Total Bilirubin 0.3 MG/DL (0.2-1.0) Aspartate Amino Transf (AST/SGOT) 25 U/L (15-37) Alanine Aminotransferase (ALT/SGPT) 17 U/L (12-78) Alkaline Phosphatase 111 U/L (46-116) C-Reactive Protein, Quantitative 9.0 mg/dL (0.00-0.90) H Total Protein 6.5 G/DL (6.4-8.2) Albumin 1.5 G/DL (3.4-5.0) L Globulin 5.0 g/dL Albumin/Globulin Ratio 0.3 (1.0-2.7) L Amylase Level 82 U/L (25-115) Lipase 228 U/L (73-393) Plan Problems: (1) Leukocytosis (2) Decubitus skin ulcer Assessment & Plan: Pt presented on admission with multiple pressure injuries. Resolving pressure injury posterior neck under collar of trach. Base of wound has mostly pink epithelial with scattered small partial thickness wounds (L)2cm x (W)1.6cm. Tracheal stoma noted to have denuded area R side of stoma.. Resolving full thickness sacral pressure injury L sacrum (L)2.5cm x (W)1cm x (D) 0.2cm.Custar granulation at base of wound . Inferior but in close proximity to L sacral wound ,pt noted to have darker skin tone with scattered areas that are fluctuant and partially opened with small amt of sanguineous exudate noted (L) 9cm x (W)11.5cm. Resolving pressure injury noted to base of scrotum . Base of wound pink and dry (L)1cm x (W)0.8cm. Unstageable pressure injury noted to R heel extending into plantar aspect of R heel.At plantar aspect of heel soft necrosis noted that is oozing small amt brown purulent exudate(L)3cm x (W)3.5cm. Surrounding the area of necrosis, wound is black with fluctuance and marginal erythema along edges. Wound is malodorous.(L)8cm x (W)9.5cm. L heel is boggy with non-blanching erythema. Tx.Plan: Apply Cavilon Skin Barrier to posterior neck. Cover with Optifoam drsg. Change every 3 days and prn. Apply Moisture Barrier Paste to sacrum. Cover with Optifoam drsg. Change every 3days and prn. Apply Moisture Barrier Paste to Scrotum with each incontinence care. Apply Betadine to R heel . Cover with ABD pad and wrap with kerlix Daily and prn. Apply Cavilon Skin Barrier to R heel. Cover with Optifoam drsg. Change every 7 days and prn. APM/LARISSA Mattress overlay. Reposition at least every 2hours or as tolerated. Off-load heels with pillow. (3) Severe sepsis Assessment & Plan: Leukocytosis, lactic acidosis, hyperkalemia, hyponatremia. Severe sepsis Fluid resuscitation IV antibiotics as per infectious disease Trend labs US abd noted picc placed and midline removed given dislodged Wound care as above We will follow with recommendations Thank you for this consultation Abdoul Lucas Jun 24, 2019 15:16
--- NOTE | 2019-06-24 15:35 | Critical Care Progress Note ---
Assessment/Plan Assessment/Plan chronic respiratory failure multifocal pneumonia hypoxemia sepsis leukocytosis hyponatremia ARF trach GT severe PCM chronic encephalopathy possible colitis PLAN monitor labs closely; still with elevated WBC vent support as is- no wean and keep on AC monitor acid base and adjust iv antibiotics noted monitor imaging for change monitor effusion monitor cultures off load and monitor skin exam all care reviewed in detail monitor for seizures as prior close follow up of all parameters dc to subacute soon- once wbc trending further downwards impression, plan, and exam edited and reviewed in detail 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 - Subjective Interval Events: care noted and reviewed on vent poor LOC all reviewed ROS Limited/Unobtainable: Yes Condition: critical EKG Rhythm: Sinus Rhythm Residuals: minimal Tube Feeding Tolerated: yes I&O: Intake and Output 06/23/19 06/24/19 19:00 07:00 Intake Total 1520 ml 937 ml Output Total 985 ml 930 ml Balance 535 ml 7 ml Free Water 50 ml IV Total 560 ml 287 ml Tube Feeding 500 ml 600 ml Blood Product 400 ml Other 60 ml Output Urine Total 985 ml 930 ml # Voids 2 # Bowel Movements 2 Critical Care - Objective Last 24 Hour Vital Signs Date Time Temp Pulse Resp B/P (MAP) Pulse Ox O2 Delivery O2 Flow Rate FiO2 06/24/19 15:29 78 32 80 06/24/19 12:55 74 36 80 06/24/19 12:00 60 06/24/19 12:00 Mechanical Ventilator 06/24/19 12:00 104 06/24/19 12:00 98.0 88 30 123/68 95 Mechanical Ventilator 60 06/24/19 10:57 80 32 80 06/24/19 09:26 76 30 80 06/24/19 08:00 Mechanical Ventilator 06/24/19 08:00 60 06/24/19 08:00 98.3 89 34 130/67 99 Mechanical Ventilator 60 06/24/19 08:00 94 06/24/19 07:00 78 38 80 06/24/19 05:07 75 32 80 06/24/19 04:00 99.0 74 28 129/79 99 Mechanical Ventilator 60 06/24/19 04:00 60 06/24/19 04:00 Mechanical Ventilator 06/24/19 03:36 96 06/24/19 03:30 88 33 80 06/24/19 01:30 92 29 80 06/24/19 00:00 99.6 77 28 130/65 100 Mechanical Ventilator 60 06/24/19 00:00 Mechanical Ventilator 06/24/19 00:00 60 06/23/19 23:33 71 06/23/19 23:30 69 27 70 06/23/19 21:30 65 28 70 06/23/19 20:00 60 06/23/19 20:00 98.8 69 24 127/73 96 Mechanical Ventilator 60 06/23/19 20:00 Mechanical Ventilator 06/23/19 19:30 67 28 70 06/23/19 19:04 69 06/23/19 17:24 76 32 80 06/23/19 16:00 70 06/23/19 16:00 Mechanical Ventilator 06/23/19 16:00 60 06/23/19 16:00 98.8 68 28 98/51 96 Mechanical Ventilator 60 Labs: Laboratory Tests Test 06/24/19 04:00 White Blood Count 16.7 K/UL (4.8-10.8) H Red Blood Count 3.13 M/UL (4.70-6.10) L Hemoglobin 9.1 G/DL (14.2-18.0) L Hematocrit 27.7 % (42.0-52.0) L Mean Corpuscular Volume 88 FL (80-99) Mean Corpuscular Hemoglobin 29.3 PG (27.0-31.0) Mean Corpuscular Hemoglobin Concent 33.1 G/DL (32.0-36.0) Red Cell Distribution Width 16.0 % (11.6-14.8) H Platelet Count 135 K/UL (150-450) L Mean Platelet Volume 7.3 FL (6.5-10.1) Neutrophils (%) (Auto) 79.1 % (45.0-75.0) H Lymphocytes (%) (Auto) 14.7 % (20.0-45.0) L Monocytes (%) (Auto) 3.8 % (1.0-10.0) Eosinophils (%) (Auto) 2.1 % (0.0-3.0) Basophils (%) (Auto) 0.3 % (0.0-2.0) Erythrocyte Sedimentation Rate 88 MM/HR (0-20) H Prothrombin Time 11.7 SEC (9.30-11.50) H Prothromb Time International Ratio 1.1 (0.9-1.1) Activated Partial Thromboplast Time 27 SEC (23-33) Sodium Level 144 MMOL/L (136-145) Potassium Level 4.2 MMOL/L (3.5-5.1) Chloride Level 112 MMOL/L (98-107) H Carbon Dioxide Level 27 MMOL/L (21-32) Anion Gap 5 mmol/L (5-15) Blood Urea Nitrogen 13 mg/dL (7-18) Creatinine 0.8 MG/DL (0.55-1.30) Estimat Glomerular Filtration Rate mL/min (>60) Glucose Level 199 MG/DL (74-106) H Calcium Level 7.8 MG/DL (8.5-10.1) L Magnesium Level 1.7 MG/DL (1.8-2.4) L Total Bilirubin 0.3 MG/DL (0.2-1.0) Aspartate Amino Transf (AST/SGOT) 25 U/L (15-37) Alanine Aminotransferase (ALT/SGPT) 17 U/L (12-78) Alkaline Phosphatase 111 U/L (46-116) C-Reactive Protein, Quantitative 9.0 mg/dL (0.00-0.90) H Total Protein 6.5 G/DL (6.4-8.2) Albumin 1.5 G/DL (3.4-5.0) L Globulin 5.0 g/dL Albumin/Globulin Ratio 0.3 (1.0-2.7) L Amylase Level 82 U/L (25-115) Lipase 228 U/L (73-393) Objective: WDWN trach and vent noted anasarca reduced breath sounds bilaterally with scattered rhonchi [id number] without MRG NABS nontender no HSM; GT; no distention no CCE nonfocal poor LOC skin exam reviewed reviewed and examined Accucheck: 214 Bakari Montanez MD Jun 24, 2019 15:35
[2019-06-24 16:00] VITALS: BP 125/70
[2019-06-24 20:00] VITALS: BP 128/70
--- NOTE | 2019-06-24 20:01 | General Progress Note ---
Assessment/Plan Status: stable, unchanged Assessment/Plan: Assessment - Recent melena/heme (+) stools - Anemia - Hepatitis C positive - Chronic liver disease with thrombocytopenia, possibly portal HTN - on sandostatin - Resp failure - s/p trach - dysphagia - s/p PEG - Anoxic encephalopathy, non communicative - bed bound, contracted - poor Px Recommendations - continue feeds - EGD SUNDAY if OK with consultants - PPI PO - Continue Sandostatin at low dose until EGD - monitor CBC Subjective Allergies: Coded Allergies: No Known Allergies (Unverified , 07/04/18) Subjective Above noted I was finally able to reach son today GI bleed issue and endoscopy explained all questions answered son understands patient's poor overall health but wants to still have an endoscopy done Objective Last 24 Hour Vital Signs Date Time Temp Pulse Resp B/P (MAP) Pulse Ox O2 Delivery O2 Flow Rate FiO2 06/24/19 19:30 77 34 80 06/24/19 17:19 80 37 80 06/24/19 16:00 89 06/24/19 16:00 Mechanical Ventilator 06/24/19 16:00 98.3 88 40 125/70 95 Mechanical Ventilator 60 06/24/19 16:00 60 06/24/19 15:29 78 32 80 06/24/19 12:55 74 36 80 06/24/19 12:00 60 06/24/19 12:00 Mechanical Ventilator 06/24/19 12:00 104 06/24/19 12:00 98.0 88 30 123/68 95 Mechanical Ventilator 60 06/24/19 10:57 80 32 80 06/24/19 09:26 76 30 80 06/24/19 08:00 Mechanical Ventilator 06/24/19 08:00 60 06/24/19 08:00 98.3 89 34 130/67 99 Mechanical Ventilator 60 06/24/19 08:00 94 06/24/19 07:00 78 38 80 06/24/19 05:07 75 32 80 06/24/19 04:00 99.0 74 28 129/79 99 Mechanical Ventilator 60 06/24/19 04:00 60 06/24/19 04:00 Mechanical Ventilator 06/24/19 03:36 96 06/24/19 03:30 88 33 80 06/24/19 01:30 92 29 80 06/24/19 00:00 99.6 77 28 130/65 100 Mechanical Ventilator 60 06/24/19 00:00 Mechanical Ventilator 06/24/19 00:00 60 06/23/19 23:33 71 06/23/19 23:30 69 27 70 06/23/19 21:30 65 28 70 06/23/19 20:00 60 06/23/19 20:00 98.8 69 24 127/73 96 Mechanical Ventilator 60 06/23/19 20:00 Mechanical Ventilator Intake and Output 06/23/19 06/24/19 19:00 07:00 Intake Total 1520 ml 937 ml Output Total 985 ml 930 ml Balance 535 ml 7 ml Free Water 50 ml IV Total 560 ml 287 ml Tube Feeding 500 ml 600 ml Blood Product 400 ml Other 60 ml Output Urine Total 985 ml 930 ml # Voids 2 # Bowel Movements 2 Laboratory Tests 06/24/19 04:00: White Blood Count 16.7H, Red Blood Count 3.13L, Hemoglobin 9.1L, Hematocrit 27.7L, Mean Corpuscular Volume 88, Mean Corpuscular Hemoglobin 29.3, Mean Corpuscular Hemoglobin Concent 33.1, Red Cell Distribution Width 16.0H, Platelet Count 135L, Mean Platelet Volume 7.3, Neutrophils (%) (Auto) 79.1H, Lymphocytes (%) (Auto) 14.7L, Monocytes (%) (Auto) 3.8, Eosinophils (%) (Auto) 2.1, Basophils (%) (Auto) 0.3, Erythrocyte Sedimentation Rate 88H, Prothrombin Time 11.7H, Prothromb Time International Ratio 1.1, Activated Partial Thromboplast Time 27, Sodium Level 144, Potassium Level 4.2, Chloride Level 112H , Carbon Dioxide Level 27, Anion Gap 5, Blood Urea Nitrogen 13, Creatinine 0.8, Estimat Glomerular Filtration Rate , Glucose Level 199H, Calcium Level 7.8L, Magnesium Level 1.7L, Total Bilirubin 0.3, Aspartate Amino Transf (AST/SGOT) 25 , Alanine Aminotransferase (ALT/SGPT) 17, Alkaline Phosphatase 111, C-Reactive Protein, Quantitative 9.0H, Total Protein 6.5, Albumin 1.5L, Globulin 5.0, Albumin/Globulin Ratio 0.3L, Amylase Level 82, Lipase 228 Height (Feet): 5 Height (Inches): 8.00 Weight (Pounds): 212 Objective Debilitated AA man unresponsive NCAT (+) trach coarse BS RR abd soft, (+) GT no edema (+) OBS, contracted, non-verbal Manolo Okeefe MD Jun 24, 2019 20:01
[2019-06-24] MEDS: Dyna-Hex 2% Top Sol 2oz TOPIC SCH (20:54)
[2019-06-25] VITALS: BP 119/66
[2019-06-25] MEDS: NovoLOG Insulin Flexpen SUBQ SCH ×6 (01:11→23:51)
[2019-06-25] MEDS: Octreotide Acetate 500 MCG in Sodium Chloride 499 ML IV SCH ×2 (01:26→20:19)
--- NOTE | 2019-06-25 02:30 | Progress Note ---
DATE: 06/24/2019 CARDIOLOGY PROGRESS NOTE SUBJECTIVE: The patient's condition remains critical, but improved. Prognosis remains guarded. He remains on ventilator support with weaning efforts in progress. He is off pressors. OBJECTIVE: VITAL SIGNS: Blood pressure 130/67, heart rate 89, respirations 34, and temperature max 99. LUNGS: Coarse breath sounds. Thin secretions from trach. Bilateral rhonchi. HEART: Regular rhythm and rate. Normal S1, S2. Monitored rhythm, sinus with nonsustained ectopy both atrial and ventricular. ABDOMEN: Soft. G-tube intact. EXTREMITIES: A 1+ dependent edema. LABORATORY DATA: White count 16.7 and hemoglobin 9.1. Sodium 144, potassium 4.2, chloride 112, bicarb 27, BUN 13, and creatinine 0.8. Magnesium 1.7. Albumin 1.5. IMPRESSION: 1. Respiratory failure. 2. Dysphagia. 3. Acute on chronic diastolic congestive heart failure. 4. Sepsis with recovered shock. 5. Seizure disorder. 6. Hypomagnesemia. PLAN: 1. Ventilator support. 2. Endoscopy planned. 3. Feeding tube for nutrition with protein supplement. 4. Expect ability to mobilize once colloid osmotic pressure improves. 5. DVT and stress ulcer prophylaxis. 6. Trend natriuretic peptide assay. [place] M.D. DR: DESMOND JOB#: [id number] CC:
[2019-06-25 04:00] VITALS: BP 127/66
[2019-06-25 05:01] LABS: BASOPHILS % (AUTO) 0.5 % (0.0-2.0); EOSINOPHILS % (AUTO) 3.1 % (0.0-3.0); HEMATOCRIT 28.4 % (42.0-52.0); HEMOGLOBIN 9.4 G/DL (14.2-18.0); LYMPHOCYTES % (AUTO) 20.6 % (20.0-45.0); MEAN CORPUSCULAR VOLUME 89 FL (80-99); MONOCYTES % (AUTO) 5.1 % (1.0-10.0); NEUTROPHILS % (AUTO) 70.8 % (45.0-75.0); PLATELET COUNT 166 K/UL (150-450); RED BLOOD COUNT 3.18 M/UL (4.70-6.10); RED CELL DISTRIBUTION WIDTH 16.3 % (11.6-14.8); WHITE BLOOD COUNT 16.1 K/UL (4.8-10.8)
[2019-06-25 05:35] LABS: ALANINE AMINOTRANSFERASE 16 U/L (12-78); ALBUMIN 1.5 G/DL (3.4-5.0); ALBUMIN/GLOBULIN RATIO 0.3 (1.0-2.7); ALKALINE PHOSPHATASE 101 U/L (46-116); ANION GAP 4 mmol/L (5-15); ASPARTATE AMINO TRANSFERASE 18 U/L (15-37); BILIRUBIN,TOTAL 0.4 MG/DL (0.2-1.0); BLOOD UREA NITROGEN 13 mg/dL (7-18); CALCIUM 7.8 MG/DL (8.5-10.1); CARBON DIOXIDE 28 MMOL/L (21-32); CHLORIDE 112 MMOL/L (98-107); CREATININE 0.8 MG/DL (0.55-1.30); POTASSIUM 4.2 MMOL/L (3.5-5.1); SODIUM 144 MMOL/L (136-145)
--- NOTE | 2019-06-25 07:39 | General Progress Note ---
Assessment/Plan Problem List: (1) GIB (gastrointestinal bleeding) ICD Codes: K92.2 - Gastrointestinal hemorrhage, unspecified SNOMED: 15078270 (2) Anemia ICD Codes: D64.9 - Anemia, unspecified SNOMED: 495158657 Qualifiers: Qualified Codes: D64.9 - Anemia, unspecified (3) Hyponatremia ICD Codes: E87.1 - Hypo-osmolality and hyponatremia SNOMED: 59756218 (4) Renal insufficiency ICD Codes: N28.9 - Disorder of kidney and ureter, unspecified; R65.20 - Severe sepsis without septic shock SNOMED: 182766005, 496252558 (5) Pneumonia ICD Codes: J18.9 - Pneumonia, unspecified organism SNOMED: 905890498, 428776591 Qualifiers: Qualified Codes: J18.9 - Pneumonia, unspecified organism (6) Severe sepsis ICD Codes: A41.9 - Sepsis, unspecified organism; R65.20 - Severe sepsis without septic shock SNOMED: 62510276 (7) Decubitus skin ulcer ICD Codes: L89.90 - Pressure ulcer of unspecified site, unspecified stage SNOMED: 457115514 (8) Leukocytosis ICD Codes: D72.829 - Elevated white blood cell count, unspecified SNOMED: 573127415, 903821728 (9) Hyperglycemia ICD Codes: R73.9 - Hyperglycemia, unspecified SNOMED: 53311559 (10) Hypothermia ICD Codes: T68.XXXA - Hypothermia, initial encounter SNOMED: 135059796 Qualifiers: Qualified Codes: T68.XXXA - Hypothermia, initial encounter Status: stable, unchanged Assessment/Plan: cont current rx monitor off pressors iv abx per id PPI rx vent support resp rx suctioning as needed try to wean fio2 monitor cxr poor prognosis Subjective ROS Limited/Unobtainable: Yes Constitutional: Reports: malaise, weakness HEENT: Reports: no symptoms Cardiovascular: Reports: no symptoms Respiratory: Reports: shortness of breath Gastrointestinal/Abdominal: Reports: difficulty swallowing Genitourinary: Reports: no symptoms Neurologic/Psychiatric: Reports: pre-existing deficit, seizure Endocrine: Reports: no symptoms Hematologic/Lymphatic: Reports: anemia Allergies: Coded Allergies: No Known Allergies (Unverified , 07/04/18) All Systems: reviewed and negative except above Subjective remains off pressors. awake. no bleeding noted. no fever or chills. labs reviewed. on abx. still with facial twitching. hypoxic. on fio2 60-100% Objective Last 24 Hour Vital Signs Date Time Temp Pulse Resp B/P (MAP) Pulse Ox O2 Delivery O2 Flow Rate FiO2 06/25/19 05:39 60 06/25/19 05:30 86 35 100 06/25/19 04:00 90 06/25/19 04:00 99.0 90 37 127/66 91 Mechanical Ventilator 60 06/25/19 04:00 Mechanical Ventilator 06/25/19 03:07 82 37 100 06/25/19 01:30 102 35 80 06/25/19 00:00 99.1 91 37 119/66 91 Mechanical Ventilator 60 06/25/19 00:00 60 06/25/19 00:00 Mechanical Ventilator 06/24/19 23:30 105 37 80 06/24/19 23:23 94 06/24/19 21:30 82 39 80 06/24/19 20:00 Mechanical Ventilator 06/24/19 20:00 91 06/24/19 20:00 100.4 92 40 128/70 100 Mechanical Ventilator 60 06/24/19 20:00 97.3 92 40 128/70 100 Mechanical Ventilator 60 06/24/19 19:30 77 34 80 06/24/19 19:00 60 06/24/19 17:19 80 37 80 06/24/19 16:00 89 06/24/19 16:00 Mechanical Ventilator 06/24/19 16:00 98.3 88 40 125/70 95 Mechanical Ventilator 60 06/24/19 16:00 60 06/24/19 15:29 78 32 80 06/24/19 12:55 74 36 80 06/24/19 12:00 60 06/24/19 12:00 Mechanical Ventilator 06/24/19 12:00 104 06/24/19 12:00 98.0 88 30 123/68 95 Mechanical Ventilator 60 06/24/19 10:57 80 32 80 06/24/19 09:26 76 30 80 06/24/19 08:00 Mechanical Ventilator 06/24/19 08:00 60 06/24/19 08:00 98.3 89 34 130/67 99 Mechanical Ventilator 60 06/24/19 08:00 94 Intake and Output 06/24/19 06/25/19 18:59 06:59 Intake Total 505 ml 945.8 ml Output Total 400 ml 650 ml Balance 105 ml 295.8 ml Free Water 60 ml IV Total 355 ml 285.8 ml Tube Feeding 150 ml 600 ml Output Urine Total 400 ml 650 ml # Bowel Movements 1 Laboratory Tests 06/25/19 03:00: White Blood Count 16.1H, Red Blood Count 3.18L, Hemoglobin 9.4L, Hematocrit 28.4L, Mean Corpuscular Volume 89, Mean Corpuscular Hemoglobin 29.7, Mean Corpuscular Hemoglobin Concent 33.2, Red Cell Distribution Width 16.3H, Platelet Count 166, Mean Platelet Volume 7.2, Neutrophils (%) (Auto) 70.8, Lymphocytes (%) (Auto) 20.6, Monocytes (%) (Auto) 5.1, Eosinophils (%) (Auto) 3.1H, Basophils (%) (Auto) 0.5, Sodium Level 144, Potassium Level 4.2, Chloride Level 112H, Carbon Dioxide Level 28, Anion Gap 4L, Blood Urea Nitrogen 13, Creatinine 0.8, Estimat Glomerular Filtration Rate , Glucose Level 153H, Calcium Level 7.8L, Total Bilirubin 0.4, Aspartate Amino Transf (AST/SGOT) 18, Alanine Aminotransferase (ALT/SGPT) 16, Alkaline Phosphatase 101, Total Protein 6.6, Albumin 1.5L, Globulin 5.1, Albumin/Globulin Ratio 0.3L Height (Feet): 5 Height (Inches): 8.00 Weight (Pounds): 210 Objective General Appearance: WD/WN, lethargic Neck: supple Cardiovascular: regular rhythm Respiratory/Chest: chest wall non-tender, lungs clear, normal breath sounds, no respiratory distress, no accessory muscle use Abdomen: normal bowel sounds, non tender, soft, no organomegaly, no mass Edema: mild edema Neurologic: disoriented, unresponsive, aphasia Chano Galeana MD Jun 25, 2019 07:39
[2019-06-25 08:00] VITALS: BP 123/62
[2019-06-25] MEDS: levETIRAcetam 500mg/5ml Liquid GT SCH ×2 (09:36→20:14)
[2019-06-25] MEDS: cefTRIAXone 1 GM in NS 55 ML IVPB SCH (09:42)
--- NOTE | 2019-06-25 10:37 | Infectious Diseases Prog Note ---
"Assessment/Plan Assessment/Plan antibiotics : ceftriaxone A 1. proteus | serratia pneumonia 2. shock resolved 3. cirrhosis 4. respiratory failure 5. seizures P 1. continue ceftriaxone 3 more days 2. will follow up cultures Subjective ROS Limited/Unobtainable: Yes Allergies: Coded Allergies: No Known Allergies (Unverified , 07/04/18) Objective Vital Signs Last 24 Hour Vital Signs Date Time Temp Pulse Resp B/P (MAP) Pulse Ox O2 Delivery O2 Flow Rate FiO2 06/25/19 09:39 67 27 100 06/25/19 08:00 98.2 106 36 123/62 99 Mechanical Ventilator 60 06/25/19 08:00 Mechanical Ventilator 06/25/19 08:00 97 06/25/19 08:00 60 06/25/19 07:10 67 32 100 06/25/19 05:39 60 06/25/19 05:30 86 35 100 06/25/19 04:00 90 06/25/19 04:00 99.0 90 37 127/66 91 Mechanical Ventilator 60 06/25/19 04:00 Mechanical Ventilator 06/25/19 03:07 82 37 100 06/25/19 01:30 102 35 80 06/25/19 00:00 99.1 91 37 119/66 91 Mechanical Ventilator 60 06/25/19 00:00 60 06/25/19 00:00 Mechanical Ventilator 06/24/19 23:30 105 37 80 06/24/19 23:23 94 06/24/19 21:30 82 39 80 06/24/19 20:00 Mechanical Ventilator 06/24/19 20:00 91 06/24/19 20:00 100.4 92 40 128/70 100 Mechanical Ventilator 60 06/24/19 20:00 97.3 92 40 128/70 100 Mechanical Ventilator 60 06/24/19 19:30 77 34 80 06/24/19 19:00 60 06/24/19 17:19 80 37 80 06/24/19 16:00 89 06/24/19 16:00 Mechanical Ventilator 06/24/19 16:00 98.3 88 40 125/70 95 Mechanical Ventilator 60 06/24/19 16:00 60 06/24/19 15:29 78 32 80 06/24/19 12:55 74 36 80 06/24/19 12:00 60 06/24/19 12:00 Mechanical Ventilator 06/24/19 12:00 104 06/24/19 12:00 98.0 88 30 123/68 95 Mechanical Ventilator 60 06/24/19 10:57 80 32 80 Height (Feet): 5 Height (Inches): 8.00 Weight (Pounds): 210 HEENT: status post trach Respiratory/Chest: lungs clear Cardiovascular: normal rate, regular rhythm, no gallop/murmur Abdomen: soft, non tender, other - GT Extremities: other - + edema, right IJ catheter Laboratory Tests Test 06/25/19 03:00 White Blood Count 16.1 K/UL (4.8-10.8) H Red Blood Count 3.18 M/UL (4.70-6.10) L Hemoglobin 9.4 G/DL (14.2-18.0) L Hematocrit 28.4 % (42.0-52.0) L Mean Corpuscular Volume 89 FL (80-99) Mean Corpuscular Hemoglobin 29.7 PG (27.0-31.0) Mean Corpuscular Hemoglobin Concent 33.2 G/DL (32.0-36.0) Red Cell Distribution Width 16.3 % (11.6-14.8) H Platelet Count 166 K/UL (150-450) Mean Platelet Volume 7.2 FL (6.5-10.1) Neutrophils (%) (Auto) 70.8 % (45.0-75.0) Lymphocytes (%) (Auto) 20.6 % (20.0-45.0) Monocytes (%) (Auto) 5.1 % (1.0-10.0) Eosinophils (%) (Auto) 3.1 % (0.0-3.0) H Basophils (%) (Auto) 0.5 % (0.0-2.0) Sodium Level 144 MMOL/L (136-145) Potassium Level 4.2 MMOL/L (3.5-5.1) Chloride Level 112 MMOL/L (98-107) H Carbon Dioxide Level 28 MMOL/L (21-32) Anion Gap 4 mmol/L (5-15) L Blood Urea Nitrogen 13 mg/dL (7-18) Creatinine 0.8 MG/DL (0.55-1.30) Estimat Glomerular Filtration Rate mL/min (>60) Glucose Level 153 MG/DL (74-106) H Calcium Level 7.8 MG/DL (8.5-10.1) L Total Bilirubin 0.4 MG/DL (0.2-1.0) Aspartate Amino Transf (AST/SGOT) 18 U/L (15-37) Alanine Aminotransferase (ALT/SGPT) 16 U/L (12-78) Alkaline Phosphatase 101 U/L (46-116) Pro-B-Type Natriuretic Peptide 7367 pg/mL (0-125) H Total Protein 6.6 G/DL (6.4-8.2) Albumin 1.5 G/DL (3.4-5.0) L Globulin 5.1 g/dL Albumin/Globulin Ratio 0.3 (1.0-2.7) L Current Medications Medications (Trade) Dose Ordered Sig/Derrick Route PRN Reason Start Time Stop Time Status Last Admin Dose Admin Ceftriaxone Sodium 1 gm/ Sodium Chloride 55 ml @ 110 mls/hr DAILY IVPB 06/24/19 09:00 06/27/19 14:59 06/25/19 09:42 Chlorhexidine Gluconate (Gwendolyn-Hex 2%) 1 applic DAILY@2000 TOPIC 06/22/19 20:00 07/18/19 19:59 06/24/19 20:54 Dextrose (Dextrose 50%) 25 ml Q30M PRN IV Hypoglycemia 06/22/19 17:30 07/17/19 07:59 Dextrose (Dextrose 50%) 50 ml Q30M PRN IV Hypoglycemia 06/22/19 17:30 07/17/19 07:59 Insulin Aspart (NovoLOG) Q6HR SUBQ 06/23/19 12:00 07/22/19 17:44 06/25/19 06:46 Lansoprazole (Prevacid) 30 mg DAILY GT 06/23/19 09:00 07/23/19 08:59 06/25/19 09:36 Levetiracetam (Keppra) 1,000 mg Q12HR GT 06/22/19 21:00 07/19/19 20:59 06/25/19 09:36 Lorazepam (Ativan 2mg/ml 1ml) 1 mg Q2H PRN IV For Seizures 06/22/19 18:45 06/26/19 14:44 06/24/19 21:01 Octreotide Acetate 500 mcg/ Sodium Chloride 500 ml @ 25 mls/hr Q20H IV 06/23/19 09:00 07/23/19 08:59 06/25/19 01:26 Rosalinda Guerrero MD Jun 25, 2019 10:37"
[2019-06-25 12:00] VITALS: BP 127/67
--- NOTE | 2019-06-25 12:49 | Diagnostic Imaging Report ---
Indication: Shortness of breath Technique: One view of the chest Comparison: 06/21/2019 Findings: Right jugular central venous catheter, tracheostomy remains. Bilateral diffuse interstitial and airspace disease persists. This appears worse on the right but improved on the left. Small right and larger left pleural effusions are demonstrated, probably unchanged. Impression: Extensive diffuse bilateral interstitial and airspace disease, with apparent worsening of the right and slight improvement on the left, since prior study 4 days earlier Other stable findings as described
--- NOTE | 2019-06-25 14:07 | Pulmonology Progress Note ---
Assessment/Plan Assessment/Plan Pulmonary Progress Note Assessment/Plan chronic respiratory failure multifocal pneumonia hypoxemia sepsis leukocytosis hyponatremia ARF trach GT severe PCM chronic encephalopathy possible colitis PLAN monitor labs closely; still with elevated WBC vent support as is- no wean and keep on AC monitor acid base and adjust iv antibiotics noted monitor imaging for change monitor effusion monitor cultures off load and monitor skin exam all care reviewed in detail monitor for seizures as prior close follow up of all parameters dc to subacute soon- once wbc trending further downwards impression, plan, and exam edited and reviewed in detail care discussed with RN Subjective Interval Events: care noted and reviewed on vent poor LOC all reviewed ROS Limited/Unobtainable: Yes Condition: critical EKG Rhythm: Sinus Rhythm Residuals: minimal Tube Feeding Tolerated: yes Objective Vital Signs Noted Labs: noted Test 06/24/19 04:00 White Blood Count 16.7 K/UL (4.8-10.8) H Red Blood Count 3.13 M/UL (4.70-6.10) L Hemoglobin 9.1 G/DL (14.2-18.0) L Hematocrit 27.7 % (42.0-52.0) L Mean Corpuscular Volume 88 FL (80-99) Mean Corpuscular Hemoglobin 29.3 PG (27.0-31.0) Mean Corpuscular Hemoglobin Concent 33.1 G/DL (32.0-36.0) Red Cell Distribution Width 16.0 % (11.6-14.8) H Platelet Count 135 K/UL (150-450) L Mean Platelet Volume 7.3 FL (6.5-10.1) Neutrophils (%) (Auto) 79.1 % (45.0-75.0) H Lymphocytes (%) (Auto) 14.7 % (20.0-45.0) L Monocytes (%) (Auto) 3.8 % (1.0-10.0) Eosinophils (%) (Auto) 2.1 % (0.0-3.0) Basophils (%) (Auto) 0.3 % (0.0-2.0) Erythrocyte Sedimentation Rate 88 MM/HR (0-20) H Prothrombin Time 11.7 SEC (9.30-11.50) H Prothromb Time International Ratio 1.1 (0.9-1.1) Activated Partial Thromboplast Time 27 SEC (23-33) Sodium Level 144 MMOL/L (136-145) Potassium Level 4.2 MMOL/L (3.5-5.1) Chloride Level 112 MMOL/L (98-107) H Carbon Dioxide Level 27 MMOL/L (21-32) Anion Gap 5 mmol/L (5-15) Blood Urea Nitrogen 13 mg/dL (7-18) Creatinine 0.8 MG/DL (0.55-1.30) Estimat Glomerular Filtration Rate mL/min (>60) Glucose Level 199 MG/DL (74-106) H Calcium Level 7.8 MG/DL (8.5-10.1) L Magnesium Level 1.7 MG/DL (1.8-2.4) L Total Bilirubin 0.3 MG/DL (0.2-1.0) Aspartate Amino Transf (AST/SGOT) 25 U/L (15-37) Alanine Aminotransferase (ALT/SGPT) 17 U/L (12-78) Alkaline Phosphatase 111 U/L (46-116) C-Reactive Protein, Quantitative 9.0 mg/dL (0.00-0.90) H Total Protein 6.5 G/DL (6.4-8.2) Albumin 1.5 G/DL (3.4-5.0) L Globulin 5.0 g/dL Albumin/Globulin Ratio 0.3 (1.0-2.7) L Amylase Level 82 U/L (25-115) Lipase 228 U/L (73-393) Objective: WDWN trach and vent noted anasarca reduced breath sounds bilaterally with scattered rhonchi [id number] without MRG NABS nontender no HSM; GT; no distention no CCE nonfocal poor LOC skin exam reviewed reviewed and examined Subjective ROS Limited/Unobtainable: No Allergies: Coded Allergies: No Known Allergies (Unverified , 07/04/18) Objective Last 24 Hour Vital Signs Date Time Temp Pulse Resp B/P (MAP) Pulse Ox O2 Delivery O2 Flow Rate FiO2 06/25/19 13:08 69 27 100 06/25/19 12:00 Mechanical Ventilator 06/25/19 12:00 60 06/25/19 12:00 97.7 101 35 127/67 100 Mechanical Ventilator 60 06/25/19 11:03 69 26 100 06/25/19 09:39 67 27 100 06/25/19 08:00 98.2 106 36 123/62 99 Mechanical Ventilator 60 06/25/19 08:00 Mechanical Ventilator 06/25/19 08:00 97 06/25/19 08:00 60 06/25/19 07:10 67 32 100 06/25/19 05:39 60 06/25/19 05:30 86 35 100 06/25/19 04:00 90 06/25/19 04:00 99.0 90 37 127/66 91 Mechanical Ventilator 60 06/25/19 04:00 Mechanical Ventilator 06/25/19 03:07 82 37 100 06/25/19 01:30 102 35 80 06/25/19 00:00 99.1 91 37 119/66 91 Mechanical Ventilator 60 06/25/19 00:00 60 06/25/19 00:00 Mechanical Ventilator 06/24/19 23:30 105 37 80 06/24/19 23:23 94 06/24/19 21:30 82 39 80 06/24/19 20:00 Mechanical Ventilator 06/24/19 20:00 91 06/24/19 20:00 100.4 92 40 128/70 100 Mechanical Ventilator 60 06/24/19 20:00 97.3 92 40 128/70 100 Mechanical Ventilator 60 06/24/19 19:30 77 34 80 06/24/19 19:00 60 06/24/19 17:19 80 37 80 06/24/19 16:00 89 06/24/19 16:00 Mechanical Ventilator 06/24/19 16:00 98.3 88 40 125/70 95 Mechanical Ventilator 60 06/24/19 16:00 60 06/24/19 15:29 78 32 80 Intake and Output 06/24/19 06/25/19 19:00 07:00 Intake Total 505 ml 920.8 ml Output Total 400 ml 650 ml Balance 105 ml 270.8 ml Free Water 60 ml IV Total 355 ml 260.8 ml Tube Feeding 150 ml 600 ml Output Urine Total 400 ml 650 ml # Bowel Movements 1 Laboratory Tests 06/25/19 03:00: White Blood Count 16.1H, Red Blood Count 3.18L, Hemoglobin 9.4L, Hematocrit 28.4L, Mean Corpuscular Volume 89, Mean Corpuscular Hemoglobin 29.7, Mean Corpuscular Hemoglobin Concent 33.2, Red Cell Distribution Width 16.3H, Platelet Count 166, Mean Platelet Volume 7.2, Neutrophils (%) (Auto) 70.8, Lymphocytes (%) (Auto) 20.6, Monocytes (%) (Auto) 5.1, Eosinophils (%) (Auto) 3.1H, Basophils (%) (Auto) 0.5, Sodium Level 144, Potassium Level 4.2, Chloride Level 112H, Carbon Dioxide Level 28, Anion Gap 4L, Blood Urea Nitrogen 13, Creatinine 0.8, Estimat Glomerular Filtration Rate , Glucose Level 153H, Calcium Level 7.8L, Total Bilirubin 0.4, Aspartate Amino Transf (AST/SGOT) 18, Alanine Aminotransferase (ALT/SGPT) 16, Alkaline Phosphatase 101, Pro-B-Type Natriuretic Peptide 7367H, Total Protein 6.6, Albumin 1.5L, Globulin 5.1, Albumin/Globulin Ratio 0.3L Current Medications Medications (Trade) Dose Ordered Sig/Derrick Route PRN Reason Start Time Stop Time Status Last Admin Dose Admin Ceftriaxone Sodium 1 gm/ Sodium Chloride 55 ml @ 110 mls/hr DAILY IVPB 06/24/19 09:00 06/27/19 14:59 06/25/19 09:42 Chlorhexidine Gluconate (Gwendolyn-Hex 2%) 1 applic DAILY@2000 TOPIC 06/22/19 20:00 07/18/19 19:59 06/24/19 20:54 Dextrose (Dextrose 50%) 25 ml Q30M PRN IV Hypoglycemia 06/22/19 17:30 07/17/19 07:59 Dextrose (Dextrose 50%) 50 ml Q30M PRN IV Hypoglycemia 06/22/19 17:30 07/17/19 07:59 Insulin Aspart (NovoLOG) Q6HR SUBQ 06/23/19 12:00 07/22/19 17:44 06/25/19 12:19 Lansoprazole (Prevacid) 30 mg DAILY GT 06/23/19 09:00 07/23/19 08:59 06/25/19 09:36 Levetiracetam (Keppra) 1,000 mg Q12HR GT 06/22/19 21:00 07/19/19 20:59 06/25/19 09:36 Lorazepam (Ativan 2mg/ml 1ml) 1 mg Q2H PRN IV For Seizures 06/22/19 18:45 06/26/19 14:44 06/24/19 21:01 Octreotide Acetate 500 mcg/ Sodium Chloride 500 ml @ 25 mls/hr Q20H IV 06/23/19 09:00 07/23/19 08:59 06/25/19 01:26 Triamcinolone Acetonide (Kenalog) 1 applic EVERY 12 HOURS TOPIC 06/25/19 15:00 07/25/19 14:59 Sea Nieto MD Jun 25, 2019 14:07
--- NOTE | 2019-06-25 14:32 | Surgery Progress Note ---
Surgery Progress Note Subjective Additional Comments ESR and crp trending down leukocytosis exam unchanged Objective Last 24 Hour Vital Signs Date Time Temp Pulse Resp B/P (MAP) Pulse Ox O2 Delivery O2 Flow Rate FiO2 06/25/19 13:08 69 27 100 06/25/19 12:00 Mechanical Ventilator 06/25/19 12:00 60 06/25/19 12:00 62 06/25/19 12:00 97.7 101 35 127/67 100 Mechanical Ventilator 60 06/25/19 11:03 69 26 100 06/25/19 09:39 67 27 100 06/25/19 08:00 98.2 106 36 123/62 99 Mechanical Ventilator 60 06/25/19 08:00 Mechanical Ventilator 06/25/19 08:00 97 06/25/19 08:00 60 06/25/19 07:10 67 32 100 06/25/19 05:39 60 06/25/19 05:30 86 35 100 06/25/19 04:00 90 06/25/19 04:00 99.0 90 37 127/66 91 Mechanical Ventilator 60 06/25/19 04:00 Mechanical Ventilator 06/25/19 03:07 82 37 100 06/25/19 01:30 102 35 80 06/25/19 00:00 99.1 91 37 119/66 91 Mechanical Ventilator 60 06/25/19 00:00 60 06/25/19 00:00 Mechanical Ventilator 06/24/19 23:30 105 37 80 06/24/19 23:23 94 06/24/19 21:30 82 39 80 06/24/19 20:00 Mechanical Ventilator 06/24/19 20:00 91 06/24/19 20:00 100.4 92 40 128/70 100 Mechanical Ventilator 60 06/24/19 20:00 97.3 92 40 128/70 100 Mechanical Ventilator 60 06/24/19 19:30 77 34 80 06/24/19 19:00 60 06/24/19 17:19 80 37 80 06/24/19 16:00 89 06/24/19 16:00 Mechanical Ventilator 06/24/19 16:00 98.3 88 40 125/70 95 Mechanical Ventilator 60 06/24/19 16:00 60 06/24/19 15:29 78 32 80 I&O Intake and Output 06/24/19 06/25/19 19:00 07:00 Intake Total 505 ml 920.8 ml Output Total 400 ml 650 ml Balance 105 ml 270.8 ml Free Water 60 ml IV Total 355 ml 260.8 ml Tube Feeding 150 ml 600 ml Output Urine Total 400 ml 650 ml # Bowel Movements 1 Dressing: saturated Cardiovascular: RSR Respiratory: decreased breath sounds Abdomen: soft, present bowel sounds Extremities: no edema Laboratory Tests Test 06/25/19 03:00 White Blood Count 16.1 K/UL (4.8-10.8) H Red Blood Count 3.18 M/UL (4.70-6.10) L Hemoglobin 9.4 G/DL (14.2-18.0) L Hematocrit 28.4 % (42.0-52.0) L Mean Corpuscular Volume 89 FL (80-99) Mean Corpuscular Hemoglobin 29.7 PG (27.0-31.0) Mean Corpuscular Hemoglobin Concent 33.2 G/DL (32.0-36.0) Red Cell Distribution Width 16.3 % (11.6-14.8) H Platelet Count 166 K/UL (150-450) Mean Platelet Volume 7.2 FL (6.5-10.1) Neutrophils (%) (Auto) 70.8 % (45.0-75.0) Lymphocytes (%) (Auto) 20.6 % (20.0-45.0) Monocytes (%) (Auto) 5.1 % (1.0-10.0) Eosinophils (%) (Auto) 3.1 % (0.0-3.0) H Basophils (%) (Auto) 0.5 % (0.0-2.0) Sodium Level 144 MMOL/L (136-145) Potassium Level 4.2 MMOL/L (3.5-5.1) Chloride Level 112 MMOL/L (98-107) H Carbon Dioxide Level 28 MMOL/L (21-32) Anion Gap 4 mmol/L (5-15) L Blood Urea Nitrogen 13 mg/dL (7-18) Creatinine 0.8 MG/DL (0.55-1.30) Estimat Glomerular Filtration Rate mL/min (>60) Glucose Level 153 MG/DL (74-106) H Calcium Level 7.8 MG/DL (8.5-10.1) L Total Bilirubin 0.4 MG/DL (0.2-1.0) Aspartate Amino Transf (AST/SGOT) 18 U/L (15-37) Alanine Aminotransferase (ALT/SGPT) 16 U/L (12-78) Alkaline Phosphatase 101 U/L (46-116) Pro-B-Type Natriuretic Peptide 7367 pg/mL (0-125) H Total Protein 6.6 G/DL (6.4-8.2) Albumin 1.5 G/DL (3.4-5.0) L Globulin 5.1 g/dL Albumin/Globulin Ratio 0.3 (1.0-2.7) L Plan Problems: (1) Leukocytosis (2) Decubitus skin ulcer Assessment & Plan: Pt presented on admission with multiple pressure injuries. Resolving pressure injury posterior neck under collar of trach. Base of wound has mostly pink epithelial with scattered small partial thickness wounds (L)2cm x (W)1.6cm. Tracheal stoma noted to have denuded area R side of stoma.. Resolving full thickness sacral pressure injury L sacrum (L)2.5cm x (W)1cm x (D) 0.2cm.Slaton granulation at base of wound . Inferior but in close proximity to L sacral wound ,pt noted to have darker skin tone with scattered areas that are fluctuant and partially opened with small amt of sanguineous exudate noted (L) 9cm x (W)11.5cm. Resolving pressure injury noted to base of scrotum . Base of wound pink and dry (L)1cm x (W)0.8cm. Unstageable pressure injury noted to R heel extending into plantar aspect of R heel.At plantar aspect of heel soft necrosis noted that is oozing small amt brown purulent exudate(L)3cm x (W)3.5cm. Surrounding the area of necrosis, wound is black with fluctuance and marginal erythema along edges. Wound is malodorous.(L)8cm x (W)9.5cm. L heel is boggy with non-blanching erythema. Tx.Plan: Apply Cavilon Skin Barrier to posterior neck. Cover with Optifoam drsg. Change every 3 days and prn. Apply Moisture Barrier Paste to sacrum. Cover with Optifoam drsg. Change every 3days and prn. Apply Moisture Barrier Paste to Scrotum with each incontinence care. Apply Betadine to R heel . Cover with ABD pad and wrap with kerlix Daily and prn. Apply Cavilon Skin Barrier to R heel. Cover with Optifoam drsg. Change every 7 days and prn. APM/LARISSA Mattress overlay. Reposition at least every 2hours or as tolerated. Off-load heels with pillow. (3) Severe sepsis Assessment & Plan: Leukocytosis, lactic acidosis, hyperkalemia, hyponatremia. Severe sepsis Fluid resuscitation IV antibiotics as per infectious disease Trend labs US abd noted picc placed and midline removed given dislodged Wound care as above We will follow with recommendations Thank you for this consultation Abdoul Lucas Jun 25, 2019 14:32
[2019-06-25] MEDS ORDERED: Triamcinolone 0.1% 15gm Cr TOPIC SCH (15:00)
[2019-06-25] MEDS: Triamcinolone 0.1% oint TOPIC SCH ×2 (15:16→20:14)
[2019-06-25 16:00] VITALS: BP 113/74
[2019-06-25] MEDS ORDERED: Heparin1,000 units/500ml Premix(Conc:2 units/ml) IV PRN (18:00)
[2019-06-25] MEDS ORDERED: Lidocaine 1% Plain 30 ml INJ PRN (18:00)
[2019-06-25 20:00] VITALS: BP 120/63
[2019-06-25] MEDS: Dyna-Hex 2% Top Sol 2oz TOPIC SCH (20:13)
--- NOTE | 2019-06-25 22:14 | General Progress Note ---
Assessment/Plan Status: stable, unchanged Assessment/Plan: Assessment - Recent melena/heme (+) stools - Anemia - Hepatitis C positive - Chronic liver disease with thrombocytopenia, possibly portal HTN - on sandostatin - Resp failure - s/p trach - dysphagia - s/p PEG - Anoxic encephalopathy, non communicative - bed bound, contracted - poor Px Recommendations - continue feeds - EGD in am - PPI PO - Continue Sandostatin at low dose until EGD - monitor CBC Subjective Allergies: Coded Allergies: No Known Allergies (Unverified , 07/04/18) Subjective no events for EGD in am d/w RN requires frequent suctioning Objective Last 24 Hour Vital Signs Date Time Temp Pulse Resp B/P (MAP) Pulse Ox O2 Delivery O2 Flow Rate FiO2 06/25/19 20:00 60 06/25/19 20:00 97.5 101 39 120/63 98 Mechanical Ventilator 60 06/25/19 20:00 Mechanical Ventilator 06/25/19 19:34 96 06/25/19 18:45 98 34 100 06/25/19 17:05 101 37 100 06/25/19 16:00 Mechanical Ventilator 06/25/19 16:00 97 06/25/19 16:00 97.8 105 31 113/74 99 Mechanical Ventilator 60 06/25/19 16:00 60 06/25/19 15:00 66 35 100 06/25/19 13:08 69 27 100 06/25/19 12:00 Mechanical Ventilator 06/25/19 12:00 60 06/25/19 12:00 62 06/25/19 12:00 97.7 101 35 127/67 100 Mechanical Ventilator 60 06/25/19 11:03 69 26 100 06/25/19 09:39 67 27 100 06/25/19 08:00 98.2 106 36 123/62 99 Mechanical Ventilator 60 06/25/19 08:00 Mechanical Ventilator 06/25/19 08:00 97 06/25/19 08:00 60 06/25/19 07:10 67 32 100 06/25/19 05:39 60 06/25/19 05:30 86 35 100 06/25/19 04:00 90 06/25/19 04:00 99.0 90 37 127/66 91 Mechanical Ventilator 60 06/25/19 04:00 Mechanical Ventilator 06/25/19 03:07 82 37 100 06/25/19 01:30 102 35 80 06/25/19 00:00 99.1 91 37 119/66 91 Mechanical Ventilator 60 06/25/19 00:00 60 06/25/19 00:00 Mechanical Ventilator 06/24/19 23:30 105 37 80 06/24/19 23:23 94 Intake and Output 06/24/19 06/25/19 19:00 07:00 Intake Total 505 ml 920.8 ml Output Total 400 ml 650 ml Balance 105 ml 270.8 ml Free Water 60 ml IV Total 355 ml 260.8 ml Tube Feeding 150 ml 600 ml Output Urine Total 400 ml 650 ml # Bowel Movements 1 Laboratory Tests 06/25/19 03:00: White Blood Count 16.1H, Red Blood Count 3.18L, Hemoglobin 9.4L, Hematocrit 28.4L, Mean Corpuscular Volume 89, Mean Corpuscular Hemoglobin 29.7, Mean Corpuscular Hemoglobin Concent 33.2, Red Cell Distribution Width 16.3H, Platelet Count 166, Mean Platelet Volume 7.2, Neutrophils (%) (Auto) 70.8, Lymphocytes (%) (Auto) 20.6, Monocytes (%) (Auto) 5.1, Eosinophils (%) (Auto) 3.1H, Basophils (%) (Auto) 0.5, Sodium Level 144, Potassium Level 4.2, Chloride Level 112H, Carbon Dioxide Level 28, Anion Gap 4L, Blood Urea Nitrogen 13, Creatinine 0.8, Estimat Glomerular Filtration Rate , Glucose Level 153H, Calcium Level 7.8L, Total Bilirubin 0.4, Aspartate Amino Transf (AST/SGOT) 18, Alanine Aminotransferase (ALT/SGPT) 16, Alkaline Phosphatase 101, Pro-B-Type Natriuretic Peptide 7367H, Total Protein 6.6, Albumin 1.5L, Globulin 5.1, Albumin/Globulin Ratio 0.3L Height (Feet): 5 Height (Inches): 8.00 Weight (Pounds): 210 Objective Debilitated AA man unresponsive NCAT (+) trach coarse BS RR abd soft, (+) GT no edema (+) OBS, contracted, non-verbal Manolo Okeefe MD Jun 25, 2019 22:14
--- NOTE | 2019-06-25 23:30 | Progress Note ---
DATE: 06/25/2019 CARDIOLOGY PROGRESS NOTE SUBJECTIVE: The patient remains off pressor support. Blood pressure parameters have remained stable. Temperature has remained in the normal range with low-grade fevers now noted. He is on antiseizure therapy with episodes of facial twitching. OBJECTIVE: VITAL SIGNS: Blood pressure 113/74, pulse 105, respirations 31, afebrile. Monitored rhythm, sinus and sinus tachycardia. LUNGS: Course breath sounds. Few rhonchi. CARDIAC: Regular rhythm. Rapid rate. Normal S1, S2. ABDOMEN: Soft. EXTREMITIES: Trace edema. LABORATORY DATA: White count 16, hemoglobin 9.4. Sodium 144, potassium 4.2, bicarbonate 28, BUN 13, creatinine 0.8. Magnesium yesterday 1.7. Albumin 1.5. Pro-natriuretic peptide has increased to 7300. IMPRESSION: 1. Fever. 2. Leukocytosis. 3. infection. 4. Hypothermia has recovered from initial presentation. 5. Seizure disorder. 6. Acute on chronic diastolic congestive heart failure. 7. Severe protein-calorie malnutrition. 8. Gastrointestinal bleeding with anemia. 9. Healthcare-acquired pneumonia. 10. Respiratory failure. PLAN: 1. Ventilator support. 2. Antimicrobials. 3. Respiratory hygiene. 4. Review chest radiograph. 5. Protein supplement by feeding tube. 6. We will likely need to diurese to help mobilize extravascular edema. [place] M.D. DR: MARJORIE JOB#: [id number] CC:
[2019-06-26] VITALS: BP 116/68
[2019-06-26 04:00] VITALS: BP 115/78
[2019-06-26 05:10] LABS: BASOPHILS % (AUTO) 0.6 % (0.0-2.0); EOSINOPHILS % (AUTO) 3.1 % (0.0-3.0); HEMATOCRIT 28.8 % (42.0-52.0); HEMOGLOBIN 9.4 G/DL (14.2-18.0); LYMPHOCYTES % (AUTO) 16.7 % (20.0-45.0); MEAN CORPUSCULAR VOLUME 89 FL (80-99); MONOCYTES % (AUTO) 5.1 % (1.0-10.0); NEUTROPHILS % (AUTO) 74.6 % (45.0-75.0); PLATELET COUNT 208 K/UL (150-450); RED BLOOD COUNT 3.23 M/UL (4.70-6.10); RED CELL DISTRIBUTION WIDTH 16.6 % (11.6-14.8); WHITE BLOOD COUNT 14.5 K/UL (4.8-10.8)
[2019-06-26 05:26] LABS: ALANINE AMINOTRANSFERASE 14 U/L (12-78); ALBUMIN 1.5 G/DL (3.4-5.0); ALBUMIN/GLOBULIN RATIO 0.3 (1.0-2.7); ALKALINE PHOSPHATASE 101 U/L (46-116); ANION GAP 6 mmol/L (5-15); ASPARTATE AMINO TRANSFERASE 17 U/L (15-37); BILIRUBIN,TOTAL 0.4 MG/DL (0.2-1.0); BLOOD UREA NITROGEN 13 mg/dL (7-18); CALCIUM 8.1 MG/DL (8.5-10.1); CARBON DIOXIDE 28 MMOL/L (21-32); CHLORIDE 109 MMOL/L (98-107); CREATININE 0.7 MG/DL (0.55-1.30); POTASSIUM 4.4 MMOL/L (3.5-5.1); SODIUM 143 MMOL/L (136-145)
[2019-06-26] MEDS: NovoLOG Insulin Flexpen SUBQ SCH ×4 (05:42→23:34)
--- NOTE | 2019-06-26 07:31 | General Progress Note ---
Assessment/Plan Problem List: (1) GIB (gastrointestinal bleeding) ICD Codes: K92.2 - Gastrointestinal hemorrhage, unspecified SNOMED: 99976799 (2) Anemia ICD Codes: D64.9 - Anemia, unspecified SNOMED: 243256082 Qualifiers: Qualified Codes: D64.9 - Anemia, unspecified (3) Hyponatremia ICD Codes: E87.1 - Hypo-osmolality and hyponatremia SNOMED: 22329986 (4) Renal insufficiency ICD Codes: N28.9 - Disorder of kidney and ureter, unspecified; R65.20 - Severe sepsis without septic shock SNOMED: 262426128, 317998605 (5) Pneumonia ICD Codes: J18.9 - Pneumonia, unspecified organism SNOMED: 637321427, 503227370 Qualifiers: Qualified Codes: J18.9 - Pneumonia, unspecified organism (6) Severe sepsis ICD Codes: A41.9 - Sepsis, unspecified organism; R65.20 - Severe sepsis without septic shock SNOMED: 87399175 (7) Decubitus skin ulcer ICD Codes: L89.90 - Pressure ulcer of unspecified site, unspecified stage SNOMED: 693259779 (8) Leukocytosis ICD Codes: D72.829 - Elevated white blood cell count, unspecified SNOMED: 529666433, 599860481 (9) Hyperglycemia ICD Codes: R73.9 - Hyperglycemia, unspecified SNOMED: 52806705 (10) Hypothermia ICD Codes: T68.XXXA - Hypothermia, initial encounter SNOMED: 902679765 Qualifiers: Qualified Codes: T68.XXXA - Hypothermia, initial encounter Status: stable, unchanged Assessment/Plan: cont current rx monitor off pressors iv abx per id will repeat sputum cultures PPI rx vent support resp rx suctioning as needed try to wean fio2 monitor cxr poor prognosis d/w son. Subjective ROS Limited/Unobtainable: No Constitutional: Reports: malaise, weakness HEENT: Reports: no symptoms Cardiovascular: Reports: no symptoms Respiratory: Reports: cough, shortness of breath Gastrointestinal/Abdominal: Reports: difficulty swallowing Genitourinary: Reports: no symptoms Neurologic/Psychiatric: Reports: pre-existing deficit, seizure Endocrine: Reports: no symptoms Hematologic/Lymphatic: Reports: anemia Allergies: Coded Allergies: No Known Allergies (Unverified , 07/04/18) All Systems: reviewed and negative except above Subjective no change. remains on 100% fio2. desaturates to high 80s on 60%. cxr still with diffuse infiltrates. not improving. Objective Last 24 Hour Vital Signs Date Time Temp Pulse Resp B/P (MAP) Pulse Ox O2 Delivery O2 Flow Rate FiO2 06/26/19 07:13 71 27 100 06/26/19 05:10 78 34 100 06/26/19 04:00 60 06/26/19 04:00 74 06/26/19 04:00 98.7 96 37 115/78 96 Mechanical Ventilator 60 06/26/19 04:00 Mechanical Ventilator 06/26/19 03:14 104 36 100 06/26/19 02:26 68 06/26/19 02:26 98 06/26/19 01:27 101 33 100 06/26/19 00:00 97.7 100 36 116/68 96 Mechanical Ventilator 60 06/26/19 00:00 Mechanical Ventilator 06/26/19 00:00 85 06/25/19 23:00 98 31 100 06/25/19 21:00 102 36 100 06/25/19 20:00 60 06/25/19 20:00 97.5 101 39 120/63 98 Mechanical Ventilator 60 06/25/19 20:00 Mechanical Ventilator 06/25/19 19:34 96 06/25/19 18:45 98 34 100 06/25/19 17:05 101 37 100 06/25/19 16:00 Mechanical Ventilator 06/25/19 16:00 97 06/25/19 16:00 97.8 105 31 113/74 99 Mechanical Ventilator 60 06/25/19 16:00 60 06/25/19 15:00 66 35 100 06/25/19 13:08 69 27 100 06/25/19 12:00 Mechanical Ventilator 06/25/19 12:00 60 06/25/19 12:00 62 06/25/19 12:00 97.7 101 35 127/67 100 Mechanical Ventilator 60 06/25/19 11:03 69 26 100 06/25/19 09:39 67 27 100 06/25/19 08:00 98.2 106 36 123/62 99 Mechanical Ventilator 60 06/25/19 08:00 Mechanical Ventilator 06/25/19 08:00 97 06/25/19 08:00 60 Intake and Output 06/25/19 06/26/19 18:59 06:59 Intake Total 750 ml 492.08 ml Output Total 800 ml Balance -50 ml 492.08 ml Free Water 150 ml 50 ml IV Total 242.08 ml Tube Feeding 600 ml 200 ml Output Urine Total 800 ml # Bowel Movements 3 1 Laboratory Tests 06/26/19 03:20: White Blood Count 14.5H, Red Blood Count 3.23L, Hemoglobin 9.4L, Hematocrit 28.8L, Mean Corpuscular Volume 89, Mean Corpuscular Hemoglobin 29.3, Mean Corpuscular Hemoglobin Concent 32.8, Red Cell Distribution Width 16.6H, Platelet Count 208, Mean Platelet Volume 7.8, Neutrophils (%) (Auto) 74.6, Lymphocytes (%) (Auto) 16.7L, Monocytes (%) (Auto) 5.1, Eosinophils (%) (Auto) 3.1H, Basophils (%) (Auto) 0.6, Sodium Level 143, Potassium Level 4.4, Chloride Level 109H, Carbon Dioxide Level 28, Anion Gap 6, Blood Urea Nitrogen 13, Creatinine 0.7, Estimat Glomerular Filtration Rate , Glucose Level 151H, Calcium Level 8.1L, Magnesium Level 1.8, Total Bilirubin 0.4, Aspartate Amino Transf (AST/SGOT) 17, Alanine Aminotransferase (ALT/SGPT) 14, Alkaline Phosphatase 101, Pro-B-Type Natriuretic Peptide 5677H, Total Protein 6.9, Albumin 1.5L, Globulin 5.4, Albumin/Globulin Ratio 0.3L Height (Feet): 5 Height (Inches): 5.00 Weight (Pounds): 210 Objective General Appearance: WD/WN, lethargic Neck: supple Cardiovascular: regular rhythm Respiratory/Chest: chest wall non-tender, lungs clear, normal breath sounds, no respiratory distress, no accessory muscle use Abdomen: normal bowel sounds, non tender, soft, no organomegaly, no mass Edema: mild edema Neurologic: disoriented, unresponsive, aphasia Chano Galeana MD Jun 26, 2019 07:30
--- NOTE | 2019-06-26 07:58 | Anethesia Preoperative Eval ---
Anesthesia Pre-op PMH/ROS General Date of Evaluation: Jun 26, 2019 Time of Evaluation: 07:53 Anesthesiologist: thor ASA Score: ASA 4 Mallampati Score Class I : Soft palate, uvula, fauces, pillars visible Class II: Soft palate, uvula, fauces visible Class III: Soft palate, base of uvula visible Class IV: Only hard plate visible Mallampati Classification: Class II Surgeon: donny Diagnosis: anemia, gi bleed Surgical Procedure: egd Anesthesia History: none Family History: no anesthesia problems Allergies: Coded Allergies: No Known Allergies (Unverified , 07/04/18) Medications: see eMAR Patient NPO?: Yes Past Medical History Cardiovascular: Reports: HTN, other - chf Pulmonary: Reports: COPD, other - tracheostomy, mechanically ventilated Gastrointestinal/Genitourinary: Reports: GERD, other - renal insufficiency, gi bleed, sandy Neurologic/Psychiatric: Reports: dementia, CVA, depression/anxiety, other - seizure disorder, encephalitis Hematology/Immune: Reports: anemia, other - sepsis, leukocytosis Anesthesia Pre-op Phys. Exam Physician Exam Last Vital Signs Date Time Temp Pulse Resp B/P (MAP) Pulse Ox O2 Delivery O2 Flow Rate FiO2 06/26/19 07:13 71 27 100 06/26/19 04:00 98.7 115/78 96 Mechanical Ventilator 06/21/19 15:23 60.0 Constitutional: NAD Cardiovascular: RRR Respiratory: other - tracheostomy, ventilator dependent Gastrointestinal: other - g-tube Airway Exam Mallampati Score: Class II MO: limited Neck: tracheostomy TMD: 2fb ROM: limited Anesthesia Pre-op A/P Labs Hematology Test 06/26/19 03:20 White Blood Count 14.5 K/UL (4.8-10.8) H Red Blood Count 3.23 M/UL (4.70-6.10) L Hemoglobin 9.4 G/DL (14.2-18.0) L Hematocrit 28.8 % (42.0-52.0) L Mean Corpuscular Volume 89 FL (80-99) Mean Corpuscular Hemoglobin 29.3 PG (27.0-31.0) Mean Corpuscular Hemoglobin Concent 32.8 G/DL (32.0-36.0) Red Cell Distribution Width 16.6 % (11.6-14.8) H Platelet Count 208 K/UL (150-450) Mean Platelet Volume 7.8 FL (6.5-10.1) Neutrophils (%) (Auto) 74.6 % (45.0-75.0) Lymphocytes (%) (Auto) 16.7 % (20.0-45.0) L Monocytes (%) (Auto) 5.1 % (1.0-10.0) Eosinophils (%) (Auto) 3.1 % (0.0-3.0) H Basophils (%) (Auto) 0.6 % (0.0-2.0) Chemistry Test 06/26/19 03:20 Sodium Level 143 MMOL/L (136-145) Potassium Level 4.4 MMOL/L (3.5-5.1) Chloride Level 109 MMOL/L (98-107) H Carbon Dioxide Level 28 MMOL/L (21-32) Anion Gap 6 mmol/L (5-15) Blood Urea Nitrogen 13 mg/dL (7-18) Creatinine 0.7 MG/DL (0.55-1.30) Estimat Glomerular Filtration Rate mL/min (>60) Glucose Level 151 MG/DL (74-106) H Calcium Level 8.1 MG/DL (8.5-10.1) L Magnesium Level 1.8 MG/DL (1.8-2.4) Total Bilirubin 0.4 MG/DL (0.2-1.0) Aspartate Amino Transf (AST/SGOT) 17 U/L (15-37) Alanine Aminotransferase (ALT/SGPT) 14 U/L (12-78) Alkaline Phosphatase 101 U/L (46-116) Pro-B-Type Natriuretic Peptide 5677 pg/mL (0-125) H Total Protein 6.9 G/DL (6.4-8.2) Albumin 1.5 G/DL (3.4-5.0) L Globulin 5.4 g/dL Albumin/Globulin Ratio 0.3 (1.0-2.7) L Risk Assessment & Plan Assessment: [email or web address] Plan: mac Status Change Before Surgery: No Pre-Antibiotics Drug: Ann-Marie Russo MD Jun 26, 2019 07:58
[2019-06-26 08:00] VITALS: BP 133/72
[2019-06-26] MEDS ORDERED: Atropine Sulfate 0.4mg/ml inj IVP PRN (08:00)
[2019-06-26] MEDS ORDERED: Midazolam 2mg/2ml Inj IVP PRN (08:00)
[2019-06-26] MEDS ORDERED: DiphenhydrAMINE 50mg/ml Inj IVP PRN (08:00)
[2019-06-26] MEDS ORDERED: fentaNYL 100 mcg/2 mL IV PRN (08:00)
[2019-06-26] MEDS: cefTRIAXone 1 GM in NS 55 ML IVPB SCH (08:44)
[2019-06-26] MEDS: levETIRAcetam 500mg/5ml Liquid GT SCH ×2 (08:44→20:58)
[2019-06-26] MEDS: Triamcinolone 0.1% oint TOPIC SCH ×2 (08:45→20:58)
--- NOTE | 2019-06-26 10:14 | Diagnostic Imaging Report ---
Indications: Needs long-term IV access Technique: Procedure performed at bedside. Procedural timeout performed. Ultrasound confirms patent compressible left basilic vein. Total sterile technique, including sterile probe cover and sterile gel, sterile gloves, hand hygiene, hat, mask,, sterile gown, large sterile drape, and preparation with 2% chlorhexidine utilized. Local anesthesia with 1% lidocaine. Under real-time ultrasound guidance, puncture left basilic vein using 21-gauge needle, passage 0.018 guidewire, exchange for 4 Estonian peel-away sheath. 4 Estonian Bard dual-lumen power PICC cut to 46 cm. It was inserted through the peel-away sheath. Peel-away sheath and guidewire removed. Catheter fixed to the skin. Both catheter ports aspirated and flushed. Patient tolerated procedure well, without immediate complication. Followup chest x-ray obtained, documents catheter tip position at the cavoatrial junction Impression: Successful bedside placement of left arm PICC under sonographic guidance, as described above.
[2019-06-26] MEDS ORDERED: Lidocaine 1% MPF 10mg/ml 5ml ONE (10:30)
[2019-06-26] MEDS ORDERED: Propofol 200mg/20ml IV ONE (10:30)
[2019-06-26] MEDS ORDERED: NS 500ML IVPB ONE (10:35)
--- NOTE | 2019-06-26 10:50 | General Progress Note ---
Assessment/Plan Status: stable, unchanged Assessment/Plan: Assessment - Recent melena/heme (+) stools - Anemia - Hepatitis C positive - Chronic liver disease with thrombocytopenia, possibly portal HTN - on sandostatin - Resp failure - s/p trach - dysphagia - s/p PEG - Anoxic encephalopathy, non communicative - bed bound, contracted - poor Px Recommendations - NPO - EGD today - PPI PO - Continue Sandostatin at low dose until EGD - monitor CBC Post Procedure EGD--> gastritis, no esophgeal varix Will d/c sandostatin and restart feeds Subjective Allergies: Coded Allergies: No Known Allergies (Unverified , 07/04/18) Subjective no events for EGD today Objective Last 24 Hour Vital Signs Date Time Temp Pulse Resp B/P (MAP) Pulse Ox O2 Delivery O2 Flow Rate FiO2 06/26/19 08:00 100 06/26/19 08:00 101 06/26/19 08:00 97.8 95 29 133/72 99 Mechanical Ventilator 60 06/26/19 08:00 Mechanical Ventilator 06/26/19 07:13 71 27 100 06/26/19 05:10 78 34 100 06/26/19 04:00 60 06/26/19 04:00 74 06/26/19 04:00 98.7 96 37 115/78 96 Mechanical Ventilator 60 06/26/19 04:00 Mechanical Ventilator 06/26/19 03:14 104 36 100 06/26/19 02:26 68 06/26/19 02:26 98 06/26/19 01:27 101 33 100 06/26/19 00:00 97.7 100 36 116/68 96 Mechanical Ventilator 60 06/26/19 00:00 Mechanical Ventilator 06/26/19 00:00 85 06/25/19 23:00 98 31 100 06/25/19 21:00 102 36 100 06/25/19 20:00 60 06/25/19 20:00 97.5 101 39 120/63 98 Mechanical Ventilator 60 06/25/19 20:00 Mechanical Ventilator 06/25/19 19:34 96 06/25/19 18:45 98 34 100 06/25/19 17:05 101 37 100 06/25/19 16:00 Mechanical Ventilator 06/25/19 16:00 97 06/25/19 16:00 97.8 105 31 113/74 99 Mechanical Ventilator 60 06/25/19 16:00 60 06/25/19 15:00 66 35 100 06/25/19 13:08 69 27 100 06/25/19 12:00 Mechanical Ventilator 06/25/19 12:00 60 06/25/19 12:00 62 06/25/19 12:00 97.7 101 35 127/67 100 Mechanical Ventilator 60 06/25/19 11:03 69 26 100 Intake and Output 06/25/19 06/26/19 18:59 06:59 Intake Total 750 ml 492.08 ml Output Total 800 ml Balance -50 ml 492.08 ml Free Water 150 ml 50 ml IV Total 242.08 ml Tube Feeding 600 ml 200 ml Output Urine Total 800 ml # Bowel Movements 3 1 Laboratory Tests 06/26/19 03:20: White Blood Count 14.5H, Red Blood Count 3.23L, Hemoglobin 9.4L, Hematocrit 28.8L, Mean Corpuscular Volume 89, Mean Corpuscular Hemoglobin 29.3, Mean Corpuscular Hemoglobin Concent 32.8, Red Cell Distribution Width 16.6H, Platelet Count 208, Mean Platelet Volume 7.8, Neutrophils (%) (Auto) 74.6, Lymphocytes (%) (Auto) 16.7L, Monocytes (%) (Auto) 5.1, Eosinophils (%) (Auto) 3.1H, Basophils (%) (Auto) 0.6, Sodium Level 143, Potassium Level 4.4, Chloride Level 109H, Carbon Dioxide Level 28, Anion Gap 6, Blood Urea Nitrogen 13, Creatinine 0.7, Estimat Glomerular Filtration Rate , Glucose Level 151H, Calcium Level 8.1L, Magnesium Level 1.8, Total Bilirubin 0.4, Aspartate Amino Transf (AST/SGOT) 17, Alanine Aminotransferase (ALT/SGPT) 14, Alkaline Phosphatase 101, Pro-B-Type Natriuretic Peptide 5677H, Total Protein 6.9, Albumin 1.5L, Globulin 5.4, Albumin/Globulin Ratio 0.3L Height (Feet): 5 Height (Inches): 5.00 Weight (Pounds): 210 Objective Debilitated AA man unresponsive NCAT (+) trach coarse BS RR abd soft, (+) GT no edema (+) OBS, contracted, non-verbal Manolo Okeefe MD Jun 26, 2019 10:50
--- NOTE | 2019-06-26 10:51 | Pre-Procedure Note/Attestation ---
Pre-Procedure Note/Attestation Complete Prior to Procedure Planned Procedure: not applicable Procedure Narrative: egd/hemostasis Indications for Procedure Pre-Operative Diagnosis: GIB Attestation I attest that I discussed the nature of the procedure; its benefits; risks and complications; and alternatives (and the risks and benefits of such alternatives ), prior to the procedure, with the patient (or the patient's legal medical detail representative). I attest that, if there was a reasonable possibility of needing a blood transfusion, the patient (or the patient's legal medical detail representative) was given the [facility] standardized written summary, pursuant to the Jeromy Xavier Blood Safety Act ([place] Health and Safety Code # 1645, as amended). I attest that I re-evaluated the patient just prior to the surgery and that there has been no change in the patient's H&P, except as documented below: Manolo Okeefe MD Jun 26, 2019 10:51
--- NOTE | 2019-06-26 11:06 | Endoscopy Procedure Note ---
Endoscopy Procedure Note General Indication for Procedure: gib Procedures Performed: EGD Operative Findings/Diagnosis: michael Specimen: yes Pt Tolerated Procedure Well: Yes Estimated Blood Loss: none Anesthesia Anesthesiologist: Jose Miguel Rojas Anesthesia: MAC Medications Medication Given: see anesthesia record Inserted Devices Implant(s) used?: No GI Core Measures 50 yrs or older w/o bx or poly: Not Applicable 10yrs. F/U recommended: Not Applicable Manolo Okeefe MD Jun 26, 2019 11:06
--- NOTE | 2019-06-26 11:07 | Brief Operative Note ---
Immediate Post Operative Note Operative Note Chief Complaint: gib Pre-op Diagnosis: GIB Procedure: egd Post-op Diagnosis: michael Surgeon: donny Specimen: yes Complications: none Condition: stable Fluids: per anesth Implant(s) used?: No Manolo Okeefe MD Jun 26, 2019 11:07
--- NOTE | 2019-06-26 11:57 | Operative Note - PDOC ---
Operative Note Operative Note Date of Operation/Procedure: Jun 26, 2019 Chief Complaint: gib Pre-op Diagnosis: GI bleed Sepsis Procedure: removal of right internal jugular central venous catheter Post-op Diagnosis: same as pre-op Surgeon: tirso Specimen: none Complications: none Condition: stable Estimated Blood Loss: none Drains: none Implant(s) used?: No Indications for Procedure 74M recent picc line placement. needs prior place right internal jugular central venous catheter removed Description of Procedure patient made comfortable. dressings removed. site cleaned. sutures cut. line removed. pressure held for 5 minutes and hemostasis noted. dressings applied. Abdoul Lucas Jun 26, 2019 11:57
--- NOTE | 2019-06-26 11:59 | Surgery Progress Note ---
Surgery Progress Note Subjective Additional Comments no acute events comfortable appearing labs noted Objective Last 24 Hour Vital Signs Date Time Temp Pulse Resp B/P (MAP) Pulse Ox O2 Delivery O2 Flow Rate FiO2 06/26/19 11:19 77 27 100 06/26/19 09:22 73 25 100 06/26/19 08:00 100 06/26/19 08:00 101 06/26/19 08:00 97.8 95 29 133/72 99 Mechanical Ventilator 60 06/26/19 08:00 Mechanical Ventilator 06/26/19 07:13 71 27 100 06/26/19 05:10 78 34 100 06/26/19 04:00 60 06/26/19 04:00 74 06/26/19 04:00 98.7 96 37 115/78 96 Mechanical Ventilator 60 06/26/19 04:00 Mechanical Ventilator 06/26/19 03:14 104 36 100 06/26/19 02:26 68 06/26/19 02:26 98 06/26/19 01:27 101 33 100 06/26/19 00:00 97.7 100 36 116/68 96 Mechanical Ventilator 60 06/26/19 00:00 Mechanical Ventilator 06/26/19 00:00 85 06/25/19 23:00 98 31 100 06/25/19 21:00 102 36 100 06/25/19 20:00 60 06/25/19 20:00 97.5 101 39 120/63 98 Mechanical Ventilator 60 06/25/19 20:00 Mechanical Ventilator 06/25/19 19:34 96 06/25/19 18:45 98 34 100 06/25/19 17:05 101 37 100 06/25/19 16:00 Mechanical Ventilator 06/25/19 16:00 97 06/25/19 16:00 97.8 105 31 113/74 99 Mechanical Ventilator 60 06/25/19 16:00 60 06/25/19 15:00 66 35 100 06/25/19 13:08 69 27 100 06/25/19 12:00 Mechanical Ventilator 06/25/19 12:00 60 06/25/19 12:00 62 06/25/19 12:00 97.7 101 35 127/67 100 Mechanical Ventilator 60 I&O Intake and Output 06/25/19 06/26/19 18:59 06:59 Intake Total 750 ml 492.08 ml Output Total 800 ml Balance -50 ml 492.08 ml Free Water 150 ml 50 ml IV Total 242.08 ml Tube Feeding 600 ml 200 ml Output Urine Total 800 ml # Bowel Movements 3 1 Dressing: dry Wound: other Drains: other Cardiovascular: RSR Respiratory: decreased breath sounds Abdomen: soft, present bowel sounds Extremities: no edema, no tenderness, no cyanosis Laboratory Tests Test 06/26/19 03:20 White Blood Count 14.5 K/UL (4.8-10.8) H Red Blood Count 3.23 M/UL (4.70-6.10) L Hemoglobin 9.4 G/DL (14.2-18.0) L Hematocrit 28.8 % (42.0-52.0) L Mean Corpuscular Volume 89 FL (80-99) Mean Corpuscular Hemoglobin 29.3 PG (27.0-31.0) Mean Corpuscular Hemoglobin Concent 32.8 G/DL (32.0-36.0) Red Cell Distribution Width 16.6 % (11.6-14.8) H Platelet Count 208 K/UL (150-450) Mean Platelet Volume 7.8 FL (6.5-10.1) Neutrophils (%) (Auto) 74.6 % (45.0-75.0) Lymphocytes (%) (Auto) 16.7 % (20.0-45.0) L Monocytes (%) (Auto) 5.1 % (1.0-10.0) Eosinophils (%) (Auto) 3.1 % (0.0-3.0) H Basophils (%) (Auto) 0.6 % (0.0-2.0) Sodium Level 143 MMOL/L (136-145) Potassium Level 4.4 MMOL/L (3.5-5.1) Chloride Level 109 MMOL/L (98-107) H Carbon Dioxide Level 28 MMOL/L (21-32) Anion Gap 6 mmol/L (5-15) Blood Urea Nitrogen 13 mg/dL (7-18) Creatinine 0.7 MG/DL (0.55-1.30) Estimat Glomerular Filtration Rate mL/min (>60) Glucose Level 151 MG/DL (74-106) H Calcium Level 8.1 MG/DL (8.5-10.1) L Magnesium Level 1.8 MG/DL (1.8-2.4) Total Bilirubin 0.4 MG/DL (0.2-1.0) Aspartate Amino Transf (AST/SGOT) 17 U/L (15-37) Alanine Aminotransferase (ALT/SGPT) 14 U/L (12-78) Alkaline Phosphatase 101 U/L (46-116) Pro-B-Type Natriuretic Peptide 5677 pg/mL (0-125) H Total Protein 6.9 G/DL (6.4-8.2) Albumin 1.5 G/DL (3.4-5.0) L Globulin 5.4 g/dL Albumin/Globulin Ratio 0.3 (1.0-2.7) L Plan Problems: (1) Leukocytosis (2) Decubitus skin ulcer Assessment & Plan: Pt presented on admission with multiple pressure injuries. Resolving pressure injury posterior neck under collar of trach. Base of wound has mostly pink epithelial with scattered small partial thickness wounds (L)2cm x (W)1.6cm. Tracheal stoma noted to have denuded area R side of stoma.. Resolving full thickness sacral pressure injury L sacrum (L)2.5cm x (W)1cm x (D) 0.2cm.Lattimer granulation at base of wound . Inferior but in close proximity to L sacral wound ,pt noted to have darker skin tone with scattered areas that are fluctuant and partially opened with small amt of sanguineous exudate noted (L) 9cm x (W)11.5cm. Resolving pressure injury noted to base of scrotum . Base of wound pink and dry (L)1cm x (W)0.8cm. Unstageable pressure injury noted to R heel extending into plantar aspect of R heel.At plantar aspect of heel soft necrosis noted that is oozing small amt brown purulent exudate(L)3cm x (W)3.5cm. Surrounding the area of necrosis, wound is black with fluctuance and marginal erythema along edges. Wound is malodorous.(L)8cm x (W)9.5cm. L heel is boggy with non-blanching erythema. Tx.Plan: Apply Cavilon Skin Barrier to posterior neck. Cover with Optifoam drsg. Change every 3 days and prn. Apply Moisture Barrier Paste to sacrum. Cover with Optifoam drsg. Change every 3days and prn. Apply Moisture Barrier Paste to Scrotum with each incontinence care. Apply Betadine to R heel . Cover with ABD pad and wrap with kerlix Daily and prn. Apply Cavilon Skin Barrier to R heel. Cover with Optifoam drsg. Change every 7 days and prn. APM/LARISSA Mattress overlay. Reposition at least every 2hours or as tolerated. Off-load heels with pillow. (3) Severe sepsis Assessment & Plan: Leukocytosis, lactic acidosis, hyperkalemia, hyponatremia. Severe sepsis Fluid resuscitation IV antibiotics as per infectious disease Trend labs US abd noted picc placed and midline removed given dislodged Wound care as above We will follow with recommendations Thank you for this consultation Abdoul Lucas Jun 26, 2019 11:59
[2019-06-26 12:00] VITALS: BP 117/75
--- NOTE | 2019-06-26 12:30 | Infectious Diseases Prog Note ---
Assessment/Plan Assessment/Plan A 1. Proteus & Serratia pneumonia 2. shock, resolved 3. cirrhosis 4.Ventilatory dependent respiratory failure 5. 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 Anemia 8. Thrombocytopenia 9. Gastritis P 1. continue Rocephin X 2 days 2. poor prognosis Subjective ROS Limited/Unobtainable: Yes Cardiovascular: Reports: other - RIJ line was removed, PICC line was placed Gastrointestinal/Abdominal: Reports: other - had EGD today Neurologic: Reports: other - twiching movemen of mouth Allergies: Coded Allergies: No Known Allergies (Unverified , 07/04/18) Objective Vital Signs Last 24 Hour Vital Signs Date Time Temp Pulse Resp B/P (MAP) Pulse Ox O2 Delivery O2 Flow Rate FiO2 06/26/19 11:19 77 27 100 06/26/19 09:22 73 25 100 06/26/19 08:00 100 06/26/19 08:00 101 06/26/19 08:00 97.8 95 29 133/72 99 Mechanical Ventilator 60 06/26/19 08:00 Mechanical Ventilator 06/26/19 07:13 71 27 100 06/26/19 05:10 78 34 100 06/26/19 04:00 60 06/26/19 04:00 74 06/26/19 04:00 98.7 96 37 115/78 96 Mechanical Ventilator 60 06/26/19 04:00 Mechanical Ventilator 06/26/19 03:14 104 36 100 06/26/19 02:26 68 06/26/19 02:26 98 06/26/19 01:27 101 33 100 06/26/19 00:00 97.7 100 36 116/68 96 Mechanical Ventilator 60 06/26/19 00:00 Mechanical Ventilator 06/26/19 00:00 85 06/25/19 23:00 98 31 100 06/25/19 21:00 102 36 100 06/25/19 20:00 60 06/25/19 20:00 97.5 101 39 120/63 98 Mechanical Ventilator 60 06/25/19 20:00 Mechanical Ventilator 06/25/19 19:34 96 06/25/19 18:45 98 34 100 06/25/19 17:05 101 37 100 06/25/19 16:00 Mechanical Ventilator 06/25/19 16:00 97 06/25/19 16:00 97.8 105 31 113/74 99 Mechanical Ventilator 60 06/25/19 16:00 60 06/25/19 15:00 66 35 100 06/25/19 13:08 69 27 100 Height (Feet): 5 Height (Inches): 5.00 Weight (Pounds): 210 HEENT: status post trach Respiratory/Chest: lungs clear, other - on ventilator Cardiovascular: normal rate, other - Left arm PICC line Abdomen: soft, non tender, other - GT feeding Extremities: other - edema of arms Skin: ulcers, other Neurologic/Psychiatric: aphasia Laboratory Tests Test 06/26/19 03:20 White Blood Count 14.5 K/UL (4.8-10.8) H Red Blood Count 3.23 M/UL (4.70-6.10) L Hemoglobin 9.4 G/DL (14.2-18.0) L Hematocrit 28.8 % (42.0-52.0) L Mean Corpuscular Volume 89 FL (80-99) Mean Corpuscular Hemoglobin 29.3 PG (27.0-31.0) Mean Corpuscular Hemoglobin Concent 32.8 G/DL (32.0-36.0) Red Cell Distribution Width 16.6 % (11.6-14.8) H Platelet Count 208 K/UL (150-450) Mean Platelet Volume 7.8 FL (6.5-10.1) Neutrophils (%) (Auto) 74.6 % (45.0-75.0) Lymphocytes (%) (Auto) 16.7 % (20.0-45.0) L Monocytes (%) (Auto) 5.1 % (1.0-10.0) Eosinophils (%) (Auto) 3.1 % (0.0-3.0) H Basophils (%) (Auto) 0.6 % (0.0-2.0) Sodium Level 143 MMOL/L (136-145) Potassium Level 4.4 MMOL/L (3.5-5.1) Chloride Level 109 MMOL/L (98-107) H Carbon Dioxide Level 28 MMOL/L (21-32) Anion Gap 6 mmol/L (5-15) Blood Urea Nitrogen 13 mg/dL (7-18) Creatinine 0.7 MG/DL (0.55-1.30) Estimat Glomerular Filtration Rate mL/min (>60) Glucose Level 151 MG/DL (74-106) H Calcium Level 8.1 MG/DL (8.5-10.1) L Magnesium Level 1.8 MG/DL (1.8-2.4) Total Bilirubin 0.4 MG/DL (0.2-1.0) Aspartate Amino Transf (AST/SGOT) 17 U/L (15-37) Alanine Aminotransferase (ALT/SGPT) 14 U/L (12-78) Alkaline Phosphatase 101 U/L (46-116) Pro-B-Type Natriuretic Peptide 5677 pg/mL (0-125) H Total Protein 6.9 G/DL (6.4-8.2) Albumin 1.5 G/DL (3.4-5.0) L Globulin 5.4 g/dL Albumin/Globulin Ratio 0.3 (1.0-2.7) L Current Medications Medications (Trade) Dose Ordered Sig/Derrick Route PRN Reason Start Time Stop Time Status Last Admin Dose Admin Acetaminophen (Tylenol) 650 mg Q4H PRN ORAL Mild Pain (Pain Scale 1-3) 06/26/19 08:00 06/26/19 14:00 Al Hydroxide/Mg Hydroxide (Mylanta) 15 ml Q1H PRN ORAL gi upset 06/26/19 08:00 06/26/19 14:00 Atropine Sulfate (Atropine 0.4mg/ ml) 0.5 mg Q5M PRN IVP HR less than 45 BPM 06/26/19 08:00 06/26/19 14:00 Ceftriaxone Sodium 1 gm/ Sodium Chloride 55 ml @ 110 mls/hr DAILY IVPB 06/24/19 09:00 06/27/19 14:59 06/26/19 08:44 Chlorhexidine Gluconate (Gwendolyn-Hex 2%) 1 applic DAILY@2000 TOPIC 06/25/19 20:00 07/25/19 19:59 06/25/19 20:13 Dextrose (Dextrose 50%) 25 ml Q30M PRN IV Hypoglycemia 06/22/19 17:30 07/17/19 07:59 Dextrose (Dextrose 50%) 50 ml Q30M PRN IV Hypoglycemia 06/22/19 17:30 07/17/19 07:59 Diphenhydramine HCl (Benadryl) 25 mg Q15M PRN IVP Itching 06/26/19 08:00 06/26/19 14:00 Fentanyl Citrate (Sublimaze 100 mcg/2 mL) 25 mcg Q10M PRN IV Moderate Pain (Pain Scale 4-6) 06/26/19 08:00 06/26/19 14:00 Hydralazine HCl (Apresoline) 5 mg Q30M PRN IV SBP>160 /DBP>90 06/26/19 08:00 06/26/19 14:00 Insulin Aspart (NovoLOG) Q6HR SUBQ 06/23/19 12:00 07/22/19 17:44 06/26/19 05:42 Lansoprazole (Prevacid) 30 mg DAILY GT 06/23/19 09:00 07/23/19 08:59 06/26/19 08:44 Levetiracetam (Keppra) 1,000 mg Q12HR GT 06/22/19 21:00 07/19/19 20:59 06/26/19 08:44 Lorazepam (Ativan 2mg/ml 1ml) 1 mg Q2H PRN IV For Seizures 06/22/19 18:45 06/26/19 14:44 06/24/19 21:01 Midazolam HCl (Versed 2mg/2ml vial) 1 mg Q15M PRN IVP For Anxiety 06/26/19 08:00 06/26/19 14:00 Octreotide Acetate 500 mcg/ Sodium Chloride 500 ml @ 25 mls/hr Q20H IV 06/23/19 09:00 07/23/19 08:59 06/25/19 20:19 Ondansetron HCl (Zofran) 4 mg Q1H PRN IVP Nausea & Vomiting 06/26/19 08:00 06/26/19 14:00 Triamcinolone (Kenalog) 1 applic EVERY 12 HOURS TOPIC 06/25/19 15:00 07/25/19 14:59 06/26/19 08:45 Carlos Amaro MD Jun 26, 2019 12:29
--- NOTE | 2019-06-26 13:26 | Immediate Post-Op Evaluation ---
Immediate Post-Op Evalulation Immediate Post-Op Evalulation Procedure: egd w/bx Date of Evaluation: Jun 26, 2019 Time of Evaluation: 11:12 Blood Products: none Estimated Blood Loss: negligible Blood Pressure Systolic: 117 Blood Pressure Diastolic: 75 Pulse Rate: 97 Respiratory Rate: 20 O2 Sat by Pulse Oximetry: 100 Temperature (Fahrenheit): 98.6 Pain Score (1-10): 0 Nausea: No Vomiting: No Complications none Patient Status: awake, reacts, patent, ventilated Hydration Status: adequate Drug: Ann-Marie Russo MD Jun 26, 2019 13:26
--- NOTE | 2019-06-26 13:26 | 48 Hour Post Anesthesia Eval ---
Post Anesthesia Evaluation Procedure: egd w/bx Date of Evaluation: Jun 26, 2019 Time of Evaluation: 11:14 Blood Pressure Systolic: 117 0: 75 Pulse Rate: 95 Respiratory Rate: 20 Temperature (Fahrenheit): 98.6 O2 Sat by Pulse Oximetry: 100 Airway: patent Nausea: No Vomiting: No Pain Intensity: 0 Hydration Status: adequate Cardiopulmonary Status: stable Mental Status/LOC: patient returned to baseline Post-Anesthesia Complications: none Follow-up care needed: N/A Ann-Marie Banegas MD Jun 26, 2019 13:26
[2019-06-26 16:00] VITALS: BP 130/72
[2019-06-26] MEDS: Octreotide Acetate 500 MCG in Sodium Chloride 499 ML IV SCH (16:12)
[2019-06-26] MEDS ORDERED: NS 500ML ONE (16:14)
[2019-06-26] MEDS ORDERED: NS 275ml ONE ×2 (16:14→16:17)
[2019-06-26] MEDS ORDERED: Tubing Blood Filter IV ONE (16:17)
--- NOTE | 2019-06-26 16:57 | Critical Care Progress Note ---
Assessment/Plan Assessment/Plan chronic respiratory failure multifocal pneumonia hypoxemia sepsis leukocytosis hyponatremia ARF trach GT severe PCM chronic encephalopathy possible colitis PLAN await clearance vent support as is- no wean and keep on AC monitor acid base and adjust iv antibiotics noted monitor imaging for change off load and monitor skin exam all care reviewed in detail monitor for seizures as prior close follow up of all parameters dc to subacute soon-once cleared by consultants impression, plan, and exam edited and reviewed in detail care discussed with hand painter - Subjective Interval Events: care noted vent reviewed seen earlier prognosis poor ROS Limited/Unobtainable: Yes Condition: unchanged EKG Rhythm: Sinus Rhythm Residuals: minimal Tube Feeding Tolerated: yes I&O: Intake and Output 06/25/19 06/26/19 19:00 07:00 Intake Total 750 ml 517.08 ml Output Total 800 ml Balance -50 ml 517.08 ml Free Water 150 ml 50 ml IV Total 267.08 ml Tube Feeding 600 ml 200 ml Output Urine Total 800 ml # Bowel Movements 3 1 Critical Care - Objective Last 24 Hour Vital Signs Date Time Temp Pulse Resp B/P (MAP) Pulse Ox O2 Delivery O2 Flow Rate FiO2 06/26/19 16:00 98.3 98 20 130/72 99 Mechanical Ventilator 60 06/26/19 16:00 100 06/26/19 16:00 96 06/26/19 16:00 Mechanical Ventilator 06/26/19 15:03 97 27 100 06/26/19 13:06 99 31 100 06/26/19 12:00 98.6 95 20 117/75 99 Mechanical Ventilator 60 06/26/19 12:00 97 06/26/19 12:00 Mechanical Ventilator 06/26/19 12:00 100 06/26/19 11:19 77 27 100 06/26/19 09:22 73 25 100 06/26/19 08:00 100 06/26/19 08:00 101 06/26/19 08:00 97.8 95 29 133/72 99 Mechanical Ventilator 60 06/26/19 08:00 Mechanical Ventilator 06/26/19 07:13 71 27 100 06/26/19 05:10 78 34 100 06/26/19 04:00 60 06/26/19 04:00 74 06/26/19 04:00 98.7 96 37 115/78 96 Mechanical Ventilator 60 06/26/19 04:00 Mechanical Ventilator 06/26/19 03:14 104 36 100 06/26/19 02:26 68 06/26/19 02:26 98 06/26/19 01:27 101 33 100 06/26/19 00:00 97.7 100 36 116/68 96 Mechanical Ventilator 60 06/26/19 00:00 Mechanical Ventilator 06/26/19 00:00 85 06/25/19 23:00 98 31 100 06/25/19 21:00 102 36 100 06/25/19 20:00 60 06/25/19 20:00 97.5 101 39 120/63 98 Mechanical Ventilator 60 06/25/19 20:00 Mechanical Ventilator 06/25/19 19:34 96 06/25/19 18:45 98 34 100 06/25/19 17:05 101 37 100 Labs: Labs Test 06/24/19 04:00 06/25/19 03:00 06/26/19 03:20 White Blood Count 16.7 K/UL (4.8-10.8) 16.1 K/UL (4.8-10.8) 14.5 K/UL (4.8-10.8) Red Blood Count 3.13 M/UL (4.70-6.10) 3.18 M/UL (4.70-6.10) 3.23 M/UL (4.70-6.10) Hemoglobin 9.1 G/DL (14.2-18.0) 9.4 G/DL (14.2-18.0) 9.4 G/DL (14.2-18.0) Hematocrit 27.7 % (42.0-52.0) 28.4 % (42.0-52.0) 28.8 % (42.0-52.0) Mean Corpuscular Volume 88 FL (80-99) 89 FL (80-99) 89 FL (80-99) Mean Corpuscular Hemoglobin 29.3 PG (27.0-31.0) 29.7 PG (27.0-31.0) 29.3 PG (27.0-31.0) Mean Corpuscular Hemoglobin Concent 33.1 G/DL (32.0-36.0) 33.2 G/DL (32.0-36.0) 32.8 G/DL (32.0-36.0) Red Cell Distribution Width 16.0 % (11.6-14.8) 16.3 % (11.6-14.8) 16.6 % (11.6-14.8) Platelet Count 135 K/UL (150-450) 166 K/UL (150-450) 208 K/UL (150-450) Mean Platelet Volume 7.3 FL (6.5-10.1) 7.2 FL (6.5-10.1) 7.8 FL (6.5-10.1) Neutrophils (%) (Auto) 79.1 % (45.0-75.0) 70.8 % (45.0-75.0) 74.6 % (45.0-75.0) Lymphocytes (%) (Auto) 14.7 % (20.0-45.0) 20.6 % (20.0-45.0) 16.7 % (20.0-45.0) Monocytes (%) (Auto) 3.8 % (1.0-10.0) 5.1 % (1.0-10.0) 5.1 % (1.0-10.0) Eosinophils (%) (Auto) 2.1 % (0.0-3.0) 3.1 % (0.0-3.0) 3.1 % (0.0-3.0) Basophils (%) (Auto) 0.3 % (0.0-2.0) 0.5 % (0.0-2.0) 0.6 % (0.0-2.0) Erythrocyte Sedimentation Rate 88 MM/HR (0-20) Prothrombin Time 11.7 SEC (9.30-11.50) Prothromb Time International Ratio 1.1 (0.9-1.1) Activated Partial Thromboplast Time 27 SEC (23-33) Sodium Level 144 MMOL/L (136-145) 144 MMOL/L (136-145) 143 MMOL/L (136-145) Potassium Level 4.2 MMOL/L (3.5-5.1) 4.2 MMOL/L (3.5-5.1) 4.4 MMOL/L (3.5-5.1) Chloride Level 112 MMOL/L (98-107) 112 MMOL/L (98-107) 109 MMOL/L (98-107) Carbon Dioxide Level 27 MMOL/L (21-32) 28 MMOL/L (21-32) 28 MMOL/L (21-32) Anion Gap 5 mmol/L (5-15) 4 mmol/L (5-15) 6 mmol/L (5-15) Blood Urea Nitrogen 13 mg/dL (7-18) 13 mg/dL (7-18) 13 mg/dL (7-18) Creatinine 0.8 MG/DL (0.55-1.30) 0.8 MG/DL (0.55-1.30) 0.7 MG/DL (0.55-1.30) Estimat Glomerular Filtration Rate mL/min (>60) mL/min (>60) mL/min (>60) Glucose Level 199 MG/DL (74-106) 153 MG/DL (74-106) 151 MG/DL (74-106) Calcium Level 7.8 MG/DL (8.5-10.1) 7.8 MG/DL (8.5-10.1) 8.1 MG/DL (8.5-10.1) Magnesium Level 1.7 MG/DL (1.8-2.4) 1.8 MG/DL (1.8-2.4) Total Bilirubin 0.3 MG/DL (0.2-1.0) 0.4 MG/DL (0.2-1.0) 0.4 MG/DL (0.2-1.0) Aspartate Amino Transf (AST/SGOT) 25 U/L (15-37) 18 U/L (15-37) 17 U/L (15-37) Alanine Aminotransferase (ALT/SGPT) 17 U/L (12-78) 16 U/L (12-78) 14 U/L (12-78) Alkaline Phosphatase 111 U/L (46-116) 101 U/L (46-116) 101 U/L (46-116) C-Reactive Protein, Quantitative 9.0 mg/dL (0.00-0.90) Total Protein 6.5 G/DL (6.4-8.2) 6.6 G/DL (6.4-8.2) 6.9 G/DL (6.4-8.2) Albumin 1.5 G/DL (3.4-5.0) 1.5 G/DL (3.4-5.0) 1.5 G/DL (3.4-5.0) Globulin 5.0 g/dL 5.1 g/dL 5.4 g/dL Albumin/Globulin Ratio 0.3 (1.0-2.7) 0.3 (1.0-2.7) 0.3 (1.0-2.7) Amylase Level 82 U/L (25-115) Lipase 228 U/L (73-393) Pro-B-Type Natriuretic Peptide 7367 pg/mL (0-125) 5677 pg/mL (0-125) Objective: WDWN trach and vent noted anasarca reduced breath sounds bilaterally with scattered rhonchi [id number] without MRG NABS nontender no HSM; GT; no distention no CCE nonfocal poor LOC skin exam reviewed reviewed and examined Accucheck: 209 Bakari Montanez MD Jun 26, 2019 16:57
[2019-06-26] MEDS: Dyna-Hex 2% Top Sol 2oz TOPIC SCH (19:30)
[2019-06-26 20:00] VITALS: BP 132/83
--- NOTE | 2019-06-26 21:15 | Operative Note - Dictated ---
DATE OF OPERATION: 06/26/2019 GASTROENTEROLOGY PROCEDURE REPORT PROCEDURE: Upper gastrointestinal endoscopy with biopsy. SURGEON: Manolo Okeefe M.D. ANESTHESIA: Ann-Marie Ferrara M.D. PRE-ENDOSCOPIC DIAGNOSIS: Upper gastrointestinal bleeding. POST-ENDOSCOPIC DIAGNOSES: 1. Nonerosive erythematous mid body gastritis, status post biopsy. 2. No evidence of esophageal varices. 3. Status post gastrostomy tube as expected. DESCRIPTION OF PROCEDURE: The procedure, its risks, indications, alternatives, and possible complications were explained to the patient's family and informed consent was obtained. The patient was then sedated. A diagnostic upper endoscope was introduced into oropharynx and advanced to the duodenum. The endoscope was then gradually withdrawn and the mucosa examined carefully. Examination of the upper gastrointestinal mucosa showed above-listed findings. Biopsies of the midbody were sent to pathology for review. The endoscope was removed. The patient left to recovery in stable condition. RECOMMENDATIONS: 1. Resume tube feeding. 2. Follow up biopsy results. 3. Monitor CBC. Manolo Okeefe M.D. DR: TRINA JOB#: [id number] CC:
[2019-06-27] VITALS: BP 136/80
--- NOTE | 2019-06-27 | Progress Note ---
DATE: 06/26/2019 CARDIOLOGY PROGRESS NOTE SUBJECTIVE: The patient remains on ventilator support. No new seizures. Some twitching of the face. On antiseizure therapy. Monitored rhythm is sinus. Blood pressure is stable off pressors. OBJECTIVE: VITAL SIGNS: Blood pressure 130/72, pulse 96, respirations 20, and afebrile. LUNGS: With few rhonchi. Thin secretions from trach tube. HEART: Regular rhythm and rate. Normal S1, S2 with a fourth heart sound. ABDOMEN: Soft with G-tube. EXTREMITIES: No edema. PICC line entry site clean and dry. IMAGING: Chest x-ray yesterday revealed interstitial infiltrates and airway disease essentially unchanged. LABORATORY DATA: White count of 14 and hemoglobin 9.4. Potassium 4.4. BUN 13 and creatinine 0.7. Magnesium 1.8. Pro-natriuretic peptide 5600. Albumin 1.5. IMPRESSION: Slow progress, but improving. PLAN: 1. Additional diuresis. 2. Other therapies without change. 3. Discharge planning in progress. Sea [place] M.D. DR: DESMOND JOB#: [id number] CC:
[2019-06-27 04:00] VITALS: BP 142/75
[2019-06-27] MEDS: NovoLOG Insulin Flexpen SUBQ SCH ×4 (06:07→23:51)
[2019-06-27 08:00] VITALS: BP 101/61
--- NOTE | 2019-06-27 08:03 | Pulmonology Progress Note ---
Assessment/Plan Assessment/Plan Pulmonary Progress Note Assessment/Plan chronic respiratory failure multifocal pneumonia hypoxemia sepsis leukocytosis hyponatremia ARF trach GT severe PCM chronic encephalopathy possible colitis PLAN monitor labs vent support as is- no wean and keep on AC monitor acid base and adjust iv antibiotics as necessary monitor imaging for change monitor effusion monitor cultures off load and monitor skin exam all care reviewed in detail monitor for seizures as prior close follow up of all parameters dc to subacute soon- once wbc trending further downwards impression, plan, and exam edited and reviewed in detail care discussed with RN Subjective Interval Events: care noted and reviewed on vent poor LOC all reviewed ROS Limited/Unobtainable: Yes Condition: critical EKG Rhythm: Sinus Rhythm Residuals: minimal Tube Feeding Tolerated: yes Objective Vital Signs Noted Labs: noted Imaging Noted: Objective: WDWN trach and vent noted anasarca reduced breath sounds bilaterally with scattered rhonchi [id number] without MRG NABS nontender no HSM; GT; no distention no CCE nonfocal poor LOC skin exam reviewed reviewed and examined Subjective ROS Limited/Unobtainable: No Allergies: Coded Allergies: No Known Allergies (Unverified , 07/04/18) Objective Last 24 Hour Vital Signs Date Time Temp Pulse Resp B/P (MAP) Pulse Ox O2 Delivery O2 Flow Rate FiO2 06/27/19 06:33 72 28 100 06/27/19 05:44 106 31 100 06/27/19 04:00 100 06/27/19 04:00 Mechanical Ventilator 06/27/19 04:00 98.8 100 22 142/75 100 Mechanical Ventilator 60 06/27/19 04:00 98 06/27/19 03:33 94 21 100 06/27/19 01:35 108 25 100 06/27/19 00:00 Mechanical Ventilator 06/27/19 00:00 99.7 104 24 136/80 100 Mechanical Ventilator 60 06/26/19 23:43 104 06/26/19 22:31 110 22 100 06/26/19 21:10 105 20 100 06/26/19 20:00 100 06/26/19 20:00 Mechanical Ventilator 06/26/19 20:00 99.1 114 31 132/83 98 Mechanical Ventilator 60 06/26/19 19:24 106 06/26/19 18:55 106 27 100 06/26/19 17:05 99 30 100 06/26/19 17:03 103 30 99 Mechanical Ventilator 100 10/17/19 16:00 98.3 98 20 130/72 99 Mechanical Ventilator 60 06/26/19 16:00 100 06/26/19 16:00 96 06/26/19 16:00 Mechanical Ventilator 06/26/19 15:03 97 27 100 06/26/19 13:06 99 31 100 06/26/19 12:00 98.6 95 20 117/75 99 Mechanical Ventilator 60 06/26/19 12:00 97 06/26/19 12:00 Mechanical Ventilator 06/26/19 12:00 100 06/26/19 11:19 77 27 100 06/26/19 09:22 73 25 100 Intake and Output 06/26/19 06/27/19 19:00 07:00 Intake Total 400 ml 550 ml Output Total 2075 ml 1800 ml Balance -1675 ml -1250 ml Tube Feeding 400 ml 550 ml Output Urine Total 2075 ml 1800 ml # Bowel Movements 3 1 Current Medications Medications (Trade) Dose Ordered Sig/Derrick Route PRN Reason Start Time Stop Time Status Last Admin Dose Admin Ceftriaxone Sodium 1 gm/ Sodium Chloride 55 ml @ 110 mls/hr DAILY IVPB 06/24/19 09:00 06/28/19 08:59 06/26/19 08:44 Chlorhexidine Gluconate (Gwendolyn-Hex 2%) 1 applic DAILY@2000 TOPIC 06/25/19 20:00 07/25/19 19:59 06/26/19 19:30 Dextrose (Dextrose 50%) 25 ml Q30M PRN IV Hypoglycemia 06/22/19 17:30 07/17/19 07:59 Dextrose (Dextrose 50%) 50 ml Q30M PRN IV Hypoglycemia 06/22/19 17:30 07/17/19 07:59 Insulin Aspart (NovoLOG) Q6HR SUBQ 06/23/19 12:00 07/22/19 17:44 06/27/19 06:07 Lansoprazole (Prevacid) 30 mg DAILY GT 06/23/19 09:00 07/23/19 08:59 06/26/19 08:44 Levetiracetam (Keppra) 1,000 mg Q12HR GT 06/22/19 21:00 07/19/19 20:59 06/26/19 20:58 Octreotide Acetate 500 mcg/ Sodium Chloride 500 ml @ 25 mls/hr Q20H IV 06/23/19 09:00 07/23/19 08:59 06/26/19 16:12 Triamcinolone (Kenalog) 1 applic EVERY 12 HOURS TOPIC 06/25/19 15:00 07/25/19 14:59 06/26/19 20:58 Sea Nieto MD Jun 27, 2019 08:03
[2019-06-27] MEDS: levETIRAcetam 500mg/5ml Liquid GT SCH ×2 (08:15→20:32)
[2019-06-27] MEDS: Triamcinolone 0.1% oint TOPIC SCH ×2 (08:15→20:32)
[2019-06-27] MEDS: cefTRIAXone 1 GM in NS 55 ML IVPB SCH (08:16)
--- NOTE | 2019-06-27 08:22 | General Progress Note ---
Assessment/Plan Problem List: (1) GIB (gastrointestinal bleeding) ICD Codes: K92.2 - Gastrointestinal hemorrhage, unspecified SNOMED: 73350347 (2) Anemia ICD Codes: D64.9 - Anemia, unspecified SNOMED: 160240102 Qualifiers: Qualified Codes: D64.9 - Anemia, unspecified (3) Hyponatremia ICD Codes: E87.1 - Hypo-osmolality and hyponatremia SNOMED: 93967705 (4) Renal insufficiency ICD Codes: N28.9 - Disorder of kidney and ureter, unspecified; R65.20 - Severe sepsis without septic shock SNOMED: 195867079, 270056336 (5) Pneumonia ICD Codes: J18.9 - Pneumonia, unspecified organism SNOMED: 863969302, 520132479 Qualifiers: Qualified Codes: J18.9 - Pneumonia, unspecified organism (6) Severe sepsis ICD Codes: A41.9 - Sepsis, unspecified organism; R65.20 - Severe sepsis without septic shock SNOMED: 66430077 (7) Decubitus skin ulcer ICD Codes: L89.90 - Pressure ulcer of unspecified site, unspecified stage SNOMED: 423906106 (8) Leukocytosis ICD Codes: D72.829 - Elevated white blood cell count, unspecified SNOMED: 296842693, 565228734 (9) Hyperglycemia ICD Codes: R73.9 - Hyperglycemia, unspecified SNOMED: 13393908 (10) Hypothermia ICD Codes: T68.XXXA - Hypothermia, initial encounter SNOMED: 211722527 Qualifiers: Qualified Codes: T68.XXXA - Hypothermia, initial encounter Status: stable, unchanged Assessment/Plan: cont current rx monitor off pressors iv abx per id follow up sputum cultures PPI rx vent support resp rx suctioning as needed try to wean fio2 monitor cxr poor prognosis d/w son. Subjective ROS Limited/Unobtainable: No Constitutional: Reports: malaise, weakness HEENT: Reports: no symptoms Cardiovascular: Reports: no symptoms Respiratory: Reports: cough Gastrointestinal/Abdominal: Reports: difficulty swallowing Genitourinary: Reports: no symptoms Neurologic/Psychiatric: Reports: pre-existing deficit, seizure Endocrine: Reports: no symptoms Hematologic/Lymphatic: Reports: anemia Allergies: Coded Allergies: No Known Allergies (Unverified , 07/04/18) Subjective no change. remains on 100% fio2. desaturates to high 80s on 60%. cxr still with diffuse infiltrates. not improving. repeat sputum cultures sent. no results yet Objective Last 24 Hour Vital Signs Date Time Temp Pulse Resp B/P (MAP) Pulse Ox O2 Delivery O2 Flow Rate FiO2 06/27/19 08:00 Mechanical Ventilator 06/27/19 06:33 72 28 100 06/27/19 05:44 106 31 100 06/27/19 04:00 100 06/27/19 04:00 Mechanical Ventilator 06/27/19 04:00 98.8 100 22 142/75 100 Mechanical Ventilator 60 06/27/19 04:00 98 06/27/19 03:33 94 21 100 06/27/19 01:35 108 25 100 06/27/19 00:00 Mechanical Ventilator 06/27/19 00:00 99.7 104 24 136/80 100 Mechanical Ventilator 60 06/26/19 23:43 104 06/26/19 22:31 110 22 100 06/26/19 21:10 105 20 100 06/26/19 20:00 100 06/26/19 20:00 Mechanical Ventilator 06/26/19 20:00 99.1 114 31 132/83 98 Mechanical Ventilator 60 06/26/19 19:24 106 06/26/19 18:55 106 27 100 06/26/19 17:05 99 30 100 06/26/19 17:03 103 30 99 Mechanical Ventilator 100 06/26/19 16:00 98.3 98 20 130/72 99 Mechanical Ventilator 60 06/26/19 16:00 100 06/26/19 16:00 96 06/26/19 16:00 Mechanical Ventilator 06/26/19 15:03 97 27 100 06/26/19 13:06 99 31 100 06/26/19 12:00 98.6 95 20 117/75 99 Mechanical Ventilator 60 06/26/19 12:00 97 06/26/19 12:00 Mechanical Ventilator 06/26/19 12:00 100 06/26/19 11:19 77 27 100 06/26/19 09:22 73 25 100 Intake and Output 06/26/19 06/27/19 19:00 07:00 Intake Total 400 ml 550 ml Output Total 2075 ml 1800 ml Balance -1675 ml -1250 ml Tube Feeding 400 ml 550 ml Output Urine Total 2075 ml 1800 ml # Bowel Movements 3 1 Height (Feet): 5 Height (Inches): 5.00 Weight (Pounds): 214 Objective General Appearance: WD/WN, lethargic Neck: supple Cardiovascular: regular rhythm Respiratory/Chest: chest wall non-tender, lungs clear, normal breath sounds, no respiratory distress, no accessory muscle use Abdomen: normal bowel sounds, non tender, soft, no organomegaly, no mass Edema: mild edema Neurologic: disoriented, unresponsive, aphasia Chano Galeana MD Jun 27, 2019 08:22
[2019-06-27 12:00] VITALS: BP 109/61
--- NOTE | 2019-06-27 12:31 | Infectious Diseases Prog Note ---
Assessment/Plan Assessment/Plan A 1. Proteus & Serratia pneumonia 2. shock, resolved 3. cirrhosis 4.Ventilatory dependent respiratory failure 5. 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 Anemia 8. Thrombocytopenia 9. Gastritis P 1. continue Rocephin X 1 day 2. poor prognosis Subjective ROS Limited/Unobtainable: Yes Allergies: Coded Allergies: No Known Allergies (Unverified , 07/04/18) Objective Vital Signs Last 24 Hour Vital Signs Date Time Temp Pulse Resp B/P (MAP) Pulse Ox O2 Delivery O2 Flow Rate FiO2 06/27/19 12:04 100 06/27/19 12:00 Mechanical Ventilator 06/27/19 12:00 97.8 76 22 109/61 (77) 100 06/27/19 10:56 95 20 100 06/27/19 10:55 97 20 100 06/27/19 10:42 76 25 100 06/27/19 08:45 78 22 100 06/27/19 08:00 Mechanical Ventilator 06/27/19 08:00 100 06/27/19 08:00 98.8 74 28 101/61 (74) 100 06/27/19 07:40 78 06/27/19 06:33 72 28 100 06/27/19 05:44 106 31 100 06/27/19 04:00 100 06/27/19 04:00 Mechanical Ventilator 06/27/19 04:00 98.8 100 22 142/75 100 Mechanical Ventilator 60 06/27/19 04:00 98 06/27/19 03:33 94 21 100 06/27/19 01:35 108 25 100 06/27/19 00:00 Mechanical Ventilator 06/27/19 00:00 99.7 104 24 136/80 100 Mechanical Ventilator 60 06/26/19 23:43 104 06/26/19 22:31 110 22 100 06/26/19 21:10 105 20 100 06/26/19 20:00 100 06/26/19 20:00 Mechanical Ventilator 06/26/19 20:00 99.1 114 31 132/83 98 Mechanical Ventilator 60 06/26/19 19:24 106 06/26/19 18:55 106 27 100 06/26/19 17:05 99 30 100 06/26/19 17:03 103 30 99 Mechanical Ventilator 100 06/26/19 16:00 98.3 98 20 130/72 99 Mechanical Ventilator 60 06/26/19 16:00 100 06/26/19 16:00 96 06/26/19 16:00 Mechanical Ventilator 06/26/19 15:03 97 27 100 06/26/19 13:06 99 31 100 Height (Feet): 5 Height (Inches): 5.00 Weight (Pounds): 214 HEENT: status post trach Respiratory/Chest: lungs clear, other - on ventilator Cardiovascular: normal rate, other - PICC line Abdomen: soft, non tender, other - GT feeding Extremities: other Neurologic/Psychiatric: aphasia, other - face twiching movement Current Medications Medications (Trade) Dose Ordered Sig/Derrick Route PRN Reason Start Time Stop Time Status Last Admin Dose Admin Ceftriaxone Sodium 1 gm/ Sodium Chloride 55 ml @ 110 mls/hr DAILY IVPB 06/24/19 09:00 06/28/19 23:59 06/27/19 08:16 Chlorhexidine Gluconate (Gwendolyn-Hex 2%) 1 applic DAILY@2000 TOPIC 06/25/19 20:00 07/25/19 19:59 06/26/19 19:30 Dextrose (Dextrose 50%) 25 ml Q30M PRN IV Hypoglycemia 06/22/19 17:30 07/17/19 07:59 Dextrose (Dextrose 50%) 50 ml Q30M PRN IV Hypoglycemia 06/22/19 17:30 07/17/19 07:59 Insulin Aspart (NovoLOG) Q6HR SUBQ 06/23/19 12:00 07/22/19 17:44 06/27/19 11:54 Lansoprazole (Prevacid) 30 mg DAILY GT 06/23/19 09:00 07/23/19 08:59 06/27/19 08:15 Levetiracetam (Keppra) 1,000 mg Q12HR GT 06/22/19 21:00 07/19/19 20:59 06/27/19 08:15 Octreotide Acetate 500 mcg/ Sodium Chloride 500 ml @ 25 mls/hr Q20H IV 06/23/19 09:00 07/23/19 08:59 06/26/19 16:12 Triamcinolone (Kenalog) 1 applic EVERY 12 HOURS TOPIC 06/25/19 15:00 07/25/19 14:59 06/27/19 08:15 Carlos Amaro MD Jun 27, 2019 12:31
[2019-06-27] MEDS: Octreotide Acetate 500 MCG in Sodium Chloride 499 ML IV SCH (13:18)
[2019-06-27 16:00] VITALS: BP 128/72
--- NOTE | 2019-06-27 17:07 | Surgery Progress Note ---
Surgery Progress Note Subjective Additional Comments no acute events comfortable Objective Last 24 Hour Vital Signs Date Time Temp Pulse Resp B/P (MAP) Pulse Ox O2 Delivery O2 Flow Rate FiO2 06/27/19 17:02 70 22 100 06/27/19 16:00 98.3 78 27 128/72 (90) 100 06/27/19 16:00 Mechanical Ventilator 06/27/19 16:00 100 06/27/19 15:55 77 06/27/19 14:30 100 25 100 06/27/19 12:48 81 24 100 06/27/19 12:04 100 06/27/19 12:00 Mechanical Ventilator 06/27/19 12:00 97.8 76 22 109/61 (77) 100 06/27/19 11:40 68 06/27/19 10:56 95 20 100 06/27/19 10:55 97 20 100 06/27/19 10:42 76 25 100 06/27/19 08:45 78 22 100 06/27/19 08:00 Mechanical Ventilator 06/27/19 08:00 100 06/27/19 08:00 98.8 74 28 101/61 (74) 100 06/27/19 07:40 78 06/27/19 06:33 72 28 100 06/27/19 05:44 106 31 100 06/27/19 04:00 100 06/27/19 04:00 Mechanical Ventilator 06/27/19 04:00 98.8 100 22 142/75 100 Mechanical Ventilator 60 06/27/19 04:00 98 06/27/19 03:33 94 21 100 06/27/19 01:35 108 25 100 06/27/19 00:00 Mechanical Ventilator 06/27/19 00:00 99.7 104 24 136/80 100 Mechanical Ventilator 60 06/26/19 23:43 104 06/26/19 22:31 110 22 100 06/26/19 21:10 105 20 100 06/26/19 20:00 100 06/26/19 20:00 Mechanical Ventilator 06/26/19 20:00 99.1 114 31 132/83 98 Mechanical Ventilator 60 06/26/19 19:24 106 06/26/19 18:55 106 27 100 I&O Intake and Output 06/26/19 06/27/19 18:59 06:59 Intake Total 375 ml 600 ml Output Total 2075 ml 1800 ml Balance -1700 ml -1200 ml IV Total 25 ml Tube Feeding 350 ml 600 ml Output Urine Total 2075 ml 1800 ml # Bowel Movements 3 1 Dressing: saturated Wound: clean Cardiovascular: RSR Respiratory: clear Abdomen: soft, non-tender, present bowel sounds Extremities: no cyanosis Plan Problems: (1) Leukocytosis (2) Decubitus skin ulcer Assessment & Plan: Pt presented on admission with multiple pressure injuries. Resolving pressure injury posterior neck under collar of trach. Base of wound has mostly pink epithelial with scattered small partial thickness wounds (L)2cm x (W)1.6cm. Tracheal stoma noted to have denuded area R side of stoma.. Resolving full thickness sacral pressure injury L sacrum (L)2.5cm x (W)1cm x (D) 0.2cm.Shallowater granulation at base of wound . Inferior but in close proximity to L sacral wound ,pt noted to have darker skin tone with scattered areas that are fluctuant and partially opened with small amt of sanguineous exudate noted (L) 9cm x (W)11.5cm. Resolving pressure injury noted to base of scrotum . Base of wound pink and dry (L)1cm x (W)0.8cm. Unstageable pressure injury noted to R heel extending into plantar aspect of R heel.At plantar aspect of heel soft necrosis noted that is oozing small amt brown purulent exudate(L)3cm x (W)3.5cm. Surrounding the area of necrosis, wound is black with fluctuance and marginal erythema along edges. Wound is malodorous.(L)8cm x (W)9.5cm. L heel is boggy with non-blanching erythema. Tx.Plan: Apply Cavilon Skin Barrier to posterior neck. Cover with Optifoam drsg. Change every 3 days and prn. Apply Moisture Barrier Paste to sacrum. Cover with Optifoam drsg. Change every 3days and prn. Apply Moisture Barrier Paste to Scrotum with each incontinence care. Apply Betadine to R heel . Cover with ABD pad and wrap with kerlix Daily and prn. Apply Cavilon Skin Barrier to R heel. Cover with Optifoam drsg. Change every 7 days and prn. APM/LARISSA Mattress overlay. Reposition at least every 2hours or as tolerated. Off-load heels with pillow. (3) Severe sepsis Assessment & Plan: Leukocytosis, lactic acidosis, hyperkalemia, hyponatremia. - improved Severe sepsis - recovering IV antibiotics as per infectious disease Trend labs US abd noted picc placed and midline removed given dislodged Wound care as above We will follow with recommendations Thank you for this consultation Abdoul Lucas Jun 27, 2019 17:07
--- NOTE | 2019-06-27 17:30 | Electroencephalogram ---
DATE OF PROCEDURE: 06/19/2019 EEG REPORT DATE OF TRACIN06/19/2019 REQUESTING PHYSICIAN: Chano Galeana M.D. HISTORY: This EEG was performed on a 74-year-old gentleman with a history of a seizure disorder, acute myocardial infarction, sepsis, and respiratory failure. The patient has had a significant alteration in his mental state and thus this EEG was performed to evaluate the patient for ongoing ictal or interictal phenomena. TECHNICAL NOTE: This EEG was performed on a [employer] with electrodes placed on the scalp according to the International 10-20 system. Nesty-eu-yvixn and [id number] montages were used. Large parts of EEG were marred by the EMG and electrode artifact. The EEG was performed while the patient was in a poorly responsive state. OBSERVATIONS: In the poorly responsive state, the background activity consisted of 2-3 Hz delta and 4-5 Hz theta activity. Large parts of the EEG were marred by the EMG and electrode artifact. No definite focal abnormalities or epileptiform discharges were seen. The patient was having twitching movements of his eyes and face throughout the tracing with no EEG correlate. IMPRESSION: This is an abnormal EEG characterized by slowing of the background in the delta and theta range, with no significant reactivity. COMMENT: This study is consistent with a moderately severe encephalopathy. The facial and eye movements do not correlate with interictal or ictal phenomena. Clinical correlation is recommended. Obinna Corado M.D., M.S.P.H. DR: SREEKANTH JOB#: [id number] NEHEMIAH
--- NOTE | 2019-06-27 18:37 | General Progress Note ---
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 Objective Last 24 Hour Vital Signs Date Time Temp Pulse Resp B/P (MAP) Pulse Ox O2 Delivery O2 Flow Rate FiO2 06/27/19 17:02 70 22 100 06/27/19 16:00 98.3 78 27 128/72 (90) 100 06/27/19 16:00 Mechanical Ventilator 06/27/19 16:00 100 06/27/19 15:55 77 06/27/19 14:30 100 25 100 06/27/19 12:48 81 24 100 06/27/19 12:04 100 06/27/19 12:00 Mechanical Ventilator 06/27/19 12:00 97.8 76 22 109/61 (77) 100 06/27/19 11:40 68 06/27/19 10:56 95 20 100 06/27/19 10:55 97 20 100 06/27/19 10:42 76 25 100 06/27/19 08:45 78 22 100 06/27/19 08:00 Mechanical Ventilator 06/27/19 08:00 100 06/27/19 08:00 98.8 74 28 101/61 (74) 100 06/27/19 07:40 78 06/27/19 06:33 72 28 100 06/27/19 05:44 106 31 100 06/27/19 04:00 100 06/27/19 04:00 Mechanical Ventilator 06/27/19 04:00 98.8 100 22 142/75 100 Mechanical Ventilator 60 06/27/19 04:00 98 06/27/19 03:33 94 21 100 06/27/19 01:35 108 25 100 06/27/19 00:00 Mechanical Ventilator 06/27/19 00:00 99.7 104 24 136/80 100 Mechanical Ventilator 60 06/26/19 23:43 104 06/26/19 22:31 110 22 100 06/26/19 21:10 105 20 100 06/26/19 20:00 100 06/26/19 20:00 Mechanical Ventilator 06/26/19 20:00 99.1 114 31 132/83 98 Mechanical Ventilator 60 06/26/19 19:24 106 06/26/19 18:55 106 27 100 Intake and Output 06/26/19 06/27/19 18:59 06:59 Intake Total 375 ml 600 ml Output Total 2075 ml 1800 ml Balance -1700 ml -1200 ml IV Total 25 ml Tube Feeding 350 ml 600 ml Output Urine Total 2075 ml 1800 ml # Bowel Movements 3 1 Height (Feet): 5 Height (Inches): 5.00 Weight (Pounds): 214 Objective Debilitated AA man unresponsive NCAT (+) trach coarse BS RR abd soft, (+) GT no edema (+) OBS, contracted, non-verbal Manolo Okeefe MD Jun 27, 2019 18:37
[2019-06-27 20:00] VITALS: BP 118/66
[2019-06-27] MEDS: Dyna-Hex 2% Top Sol 2oz TOPIC SCH (20:32)
[2019-06-28] VITALS: BP 118/69
[2019-06-28] MEDS ORDERED: LORazepam Inj 2mg/ml 1ml IV ONE (00:15)
--- NOTE | 2019-06-28 03:45 | Progress Note ---
DATE: 06/27/2019 CARDIOLOGY PROGRESS NOTE SUBJECTIVE: The patient remains on ventilator support with diffuse pulmonary infiltrates and worsening hypoxia. He remains off pressors. He has had seizures. OBJECTIVE: VITAL SIGNS: Blood pressure 142/75, pulse 100, respiratory rate 22, afebrile, T-max 99.7. LUNGS: Bilateral rales, decreasing trach secretions. HEART: Regular rhythm and rate. Normal S1, S2 with a fourth heart sound. ABDOMEN: Soft. EXTREMITIES: No edema. IMPRESSION: 1. Doing poorly, remains critical and guarded. 2. Respiratory failure. 3. Healthcare-acquired pneumonia. 4. Hypoxia. 5. Severe protein-calorie malnutrition. 6. Seizure disorder. 7. Acute on chronic diastolic congestive heart failure. 8. Recovered hypothermia and shock. PLAN: 1. Increase dose of antiseizure therapy. 2. Ventilator support and antimicrobials. 3. Protein supplements by feeding tube. 4. Periodic diuresis based on clinical parameters. 5. DVT and stress ulcer prophylaxis. [place] M.D. DR: CARO JOB#: [id number] CC:
[2019-06-28 04:00] VITALS: BP 123/77
[2019-06-28] MEDS: NovoLOG Insulin Flexpen SUBQ SCH ×3 (05:56→18:02)
[2019-06-28 06:13] LABS: BASOPHILS % (AUTO) 0.5 % (0.0-2.0); EOSINOPHILS % (AUTO) 3.4 % (0.0-3.0); HEMATOCRIT 28.3 % (42.0-52.0); LYMPHOCYTES % (AUTO) 21.3 % (20.0-45.0); MEAN CORPUSCULAR VOLUME 89 FL (80-99); MONOCYTES % (AUTO) 5.4 % (1.0-10.0); NEUTROPHILS % (AUTO) 69.4 % (45.0-75.0); PLATELET COUNT 259 K/UL (150-450); RED BLOOD COUNT 3.17 M/UL (4.70-6.10)
[2019-06-28 06:53] LABS: ALANINE AMINOTRANSFERASE 14 U/L (12-78); ALBUMIN 1.5 G/DL (3.4-5.0); ALBUMIN/GLOBULIN RATIO 0.3 (1.0-2.7); ALKALINE PHOSPHATASE 93 U/L (46-116); ANION GAP 5 mmol/L (5-15); ASPARTATE AMINO TRANSFERASE 21 U/L (15-37); BILIRUBIN,TOTAL 0.4 MG/DL (0.2-1.0); BLOOD UREA NITROGEN 13 mg/dL (7-18); CALCIUM 8.2 MG/DL (8.5-10.1); CARBON DIOXIDE 32 MMOL/L (21-32); CHLORIDE 106 MMOL/L (98-107); CREATININE 0.8 MG/DL (0.55-1.30); POTASSIUM 4.1 MMOL/L (3.5-5.1); SODIUM 143 MMOL/L (136-145)
[2019-06-28 08:00] VITALS: BP 143/88
[2019-06-28] MEDS: levETIRAcetam 500mg/5ml Liquid GT SCH ×2 (08:28→21:06)
[2019-06-28] MEDS: Triamcinolone 0.1% oint TOPIC SCH ×2 (08:28→21:06)
[2019-06-28] MEDS: cefTRIAXone 1 GM in NS 55 ML IVPB SCH (08:28)
--- NOTE | 2019-06-28 08:34 | General Progress Note ---
Assessment/Plan Problem List: (1) GIB (gastrointestinal bleeding) ICD Codes: K92.2 - Gastrointestinal hemorrhage, unspecified SNOMED: 06760546 (2) Anemia ICD Codes: D64.9 - Anemia, unspecified SNOMED: 080332608 Qualifiers: Qualified Codes: D64.9 - Anemia, unspecified (3) Hyponatremia ICD Codes: E87.1 - Hypo-osmolality and hyponatremia SNOMED: 67487856 (4) Renal insufficiency ICD Codes: N28.9 - Disorder of kidney and ureter, unspecified; R65.20 - Severe sepsis without septic shock SNOMED: 794588348, 853072175 (5) Pneumonia ICD Codes: J18.9 - Pneumonia, unspecified organism SNOMED: 268061095, 725052185 Qualifiers: Qualified Codes: J18.9 - Pneumonia, unspecified organism (6) Severe sepsis ICD Codes: A41.9 - Sepsis, unspecified organism; R65.20 - Severe sepsis without septic shock SNOMED: 22287905 (7) Decubitus skin ulcer ICD Codes: L89.90 - Pressure ulcer of unspecified site, unspecified stage SNOMED: 506953438 (8) Leukocytosis ICD Codes: D72.829 - Elevated white blood cell count, unspecified SNOMED: 943345745, 565018313 (9) Hyperglycemia ICD Codes: R73.9 - Hyperglycemia, unspecified SNOMED: 09386134 (10) Hypothermia ICD Codes: T68.XXXA - Hypothermia, initial encounter SNOMED: 144134590 Qualifiers: Qualified Codes: T68.XXXA - Hypothermia, initial encounter Status: stable, unchanged Assessment/Plan: cont current rx monitor off pressors iv abx per id follow up sputum cultures monitor cxr lasix PPI rx vent support resp rx suctioning as needed try to wean fio2 monitor cxr poor prognosis d/w son. Subjective Constitutional: Reports: malaise, weakness HEENT: Reports: no symptoms Cardiovascular: Reports: no symptoms Respiratory: Reports: cough, shortness of breath, sputum Gastrointestinal/Abdominal: Reports: no symptoms Genitourinary: Reports: no symptoms Neurologic/Psychiatric: Reports: pre-existing deficit, seizure Endocrine: Reports: no symptoms Hematologic/Lymphatic: Reports: anemia Allergies: Coded Allergies: No Known Allergies (Unverified , 10/25/18) All Systems: reviewed and negative except above Subjective no change. remains on 100% fio2. desaturates to high 80s on 60%. cxr still with diffuse infiltrates. not improving. repeat sputum cultures showing GNR. Objective Last 24 Hour Vital Signs Date Time Temp Pulse Resp B/P (MAP) Pulse Ox O2 Delivery O2 Flow Rate FiO2 06/28/19 08:00 98.1 72 20 143/88 (106) 100 06/28/19 08:00 100 06/28/19 08:00 Mechanical Ventilator 06/28/19 07:23 81 22 100 06/28/19 05:20 71 27 100 06/28/19 04:00 98.6 68 24 123/77 (92) 100 06/28/19 04:00 100 06/28/19 04:00 Mechanical Ventilator 06/28/19 03:34 92 06/28/19 03:00 86 27 100 06/28/19 01:15 71 24 100 06/28/19 00:00 98.8 81 26 118/69 (85) 95 06/28/19 00:00 Mechanical Ventilator 06/27/19 23:49 88 06/27/19 23:15 76 25 100 06/27/19 21:10 72 24 100 06/27/19 20:00 100 06/27/19 20:00 99.2 73 28 118/66 (83) 99 06/27/19 20:00 Mechanical Ventilator 06/27/19 19:47 67 06/27/19 19:25 68 25 100 06/27/19 17:02 70 22 100 06/27/19 16:00 98.3 78 27 128/72 (90) 100 06/27/19 16:00 Mechanical Ventilator 06/27/19 16:00 100 06/27/19 15:55 77 06/27/19 14:30 100 25 100 06/27/19 12:48 81 24 100 06/27/19 12:04 100 06/27/19 12:00 Mechanical Ventilator 06/27/19 12:00 97.8 76 22 109/61 (77) 100 06/27/19 11:40 68 06/27/19 10:56 95 20 100 06/27/19 10:55 97 20 100 06/27/19 10:42 76 25 100 06/27/19 08:45 78 22 100 Intake and Output 06/27/19 06/28/19 19:00 07:00 Intake Total 989.08 ml 550 ml Output Total 350 ml 1500 ml Balance 639.08 ml -950 ml Free Water 50 ml IV Total 339.08 ml Tube Feeding 600 ml 550 ml Output Urine Total 350 ml 1500 ml Laboratory Tests 06/28/19 03:12: White Blood Count 12.0H, Red Blood Count 3.17L, Hemoglobin 9.0L, Hematocrit 28.3L, Mean Corpuscular Volume 89, Mean Corpuscular Hemoglobin 28.5, Mean Corpuscular Hemoglobin Concent 31.9L, Red Cell Distribution Width 16.0H, Platelet Count 259, Mean Platelet Volume 6.8, Neutrophils (%) (Auto) 69.4, Lymphocytes (%) (Auto) 21.3, Monocytes (%) (Auto) 5.4, Eosinophils (%) (Auto) 3.4H, Basophils (%) (Auto) 0.5, Sodium Level 143, Potassium Level 4.1, Chloride Level 106, Carbon Dioxide Level 32, Anion Gap 5, Blood Urea Nitrogen 13, Creatinine 0.8, Estimat Glomerular Filtration Rate , Glucose Level 203H, Calcium Level 8.2L, Total Bilirubin 0.4, Aspartate Amino Transf (AST/SGOT) 21, Alanine Aminotransferase (ALT/SGPT) 14, Alkaline Phosphatase 93, Pro-B-Type Natriuretic Peptide 3189H, Total Protein 7.0, Albumin 1.5L, Globulin 5.5, Albumin/Globulin Ratio 0.3L Height (Feet): 5 Height (Inches): 5.00 Weight (Pounds): 213 Objective General Appearance: WD/WN, lethargic Neck: supple Cardiovascular: regular rhythm Respiratory/Chest: chest wall non-tender, lungs clear, normal breath sounds, no respiratory distress, no accessory muscle use Abdomen: normal bowel sounds, non tender, soft, no organomegaly, no mass Edema: mild edema Neurologic: disoriented, unresponsive, aphasia Chano Galeana MD Jun 28, 2019 08:34
--- NOTE | 2019-06-28 10:37 | Surgery Progress Note ---
Surgery Progress Note Subjective Additional Comments No acute events. Leukocytosis trending down. Labs stable. No nausea vomiting fever chills Objective Last 24 Hour Vital Signs Date Time Temp Pulse Resp B/P (MAP) Pulse Ox O2 Delivery O2 Flow Rate FiO2 06/28/19 08:57 68 20 100 06/28/19 08:00 98.1 72 20 143/88 (106) 100 06/28/19 08:00 100 06/28/19 08:00 Mechanical Ventilator 06/28/19 07:23 81 22 100 06/28/19 05:20 71 27 100 06/28/19 04:00 98.6 68 24 123/77 (92) 100 06/28/19 04:00 100 06/28/19 04:00 Mechanical Ventilator 06/28/19 03:34 92 06/28/19 03:00 86 27 100 06/28/19 01:15 71 24 100 06/28/19 00:00 98.8 81 26 118/69 (85) 95 06/28/19 00:00 Mechanical Ventilator 06/27/19 23:49 88 06/27/19 23:15 76 25 100 06/27/19 21:10 72 24 100 06/27/19 20:00 100 06/27/19 20:00 99.2 73 28 118/66 (83) 99 06/27/19 20:00 Mechanical Ventilator 06/27/19 19:47 67 06/27/19 19:25 68 25 100 06/27/19 17:02 70 22 100 06/27/19 16:00 98.3 78 27 128/72 (90) 100 06/27/19 16:00 Mechanical Ventilator 06/27/19 16:00 100 06/27/19 15:55 77 06/27/19 14:30 100 25 100 06/27/19 12:48 81 24 100 06/27/19 12:04 100 06/27/19 12:00 Mechanical Ventilator 06/27/19 12:00 97.8 76 22 109/61 (77) 100 06/27/19 11:40 68 06/27/19 10:56 95 20 100 06/27/19 10:55 97 20 100 06/27/19 10:42 76 25 100 I&O Intake and Output 06/27/19 06/28/19 19:00 07:00 Intake Total 989.08 ml 550 ml Output Total 350 ml 1500 ml Balance 639.08 ml -950 ml Free Water 50 ml IV Total 339.08 ml Tube Feeding 600 ml 550 ml Output Urine Total 350 ml 1500 ml Dressing: saturated Wound: clean Cardiovascular: RSR Respiratory: clear Abdomen: soft, non-tender, present bowel sounds Extremities: no tenderness, no cyanosis Laboratory Tests Test 06/28/19 03:12 White Blood Count 12.0 K/UL (4.8-10.8) H Red Blood Count 3.17 M/UL (4.70-6.10) L Hemoglobin 9.0 G/DL (14.2-18.0) L Hematocrit 28.3 % (42.0-52.0) L Mean Corpuscular Volume 89 FL (80-99) Mean Corpuscular Hemoglobin 28.5 PG (27.0-31.0) Mean Corpuscular Hemoglobin Concent 31.9 G/DL (32.0-36.0) L Red Cell Distribution Width 16.0 % (11.6-14.8) H Platelet Count 259 K/UL (150-450) Mean Platelet Volume 6.8 FL (6.5-10.1) Neutrophils (%) (Auto) 69.4 % (45.0-75.0) Lymphocytes (%) (Auto) 21.3 % (20.0-45.0) Monocytes (%) (Auto) 5.4 % (1.0-10.0) Eosinophils (%) (Auto) 3.4 % (0.0-3.0) H Basophils (%) (Auto) 0.5 % (0.0-2.0) Sodium Level 143 MMOL/L (136-145) Potassium Level 4.1 MMOL/L (3.5-5.1) Chloride Level 106 MMOL/L (98-107) Carbon Dioxide Level 32 MMOL/L (21-32) Anion Gap 5 mmol/L (5-15) Blood Urea Nitrogen 13 mg/dL (7-18) Creatinine 0.8 MG/DL (0.55-1.30) Estimat Glomerular Filtration Rate mL/min (>60) Glucose Level 203 MG/DL (74-106) H Calcium Level 8.2 MG/DL (8.5-10.1) L Total Bilirubin 0.4 MG/DL (0.2-1.0) Aspartate Amino Transf (AST/SGOT) 21 U/L (15-37) Alanine Aminotransferase (ALT/SGPT) 14 U/L (12-78) Alkaline Phosphatase 93 U/L (46-116) Pro-B-Type Natriuretic Peptide 3189 pg/mL (0-125) H Total Protein 7.0 G/DL (6.4-8.2) Albumin 1.5 G/DL (3.4-5.0) L Globulin 5.5 g/dL Albumin/Globulin Ratio 0.3 (1.0-2.7) L Plan Problems: (1) Leukocytosis (2) Decubitus skin ulcer Assessment & Plan: Pt presented on admission with multiple pressure injuries. Resolving pressure injury posterior neck under collar of trach. Base of wound has mostly pink epithelial with scattered small partial thickness wounds (L)2cm x (W)1.6cm. Tracheal stoma noted to have denuded area R side of stoma.. Resolving full thickness sacral pressure injury L sacrum (L)2.5cm x (W)1cm x (D) 0.2cm.Millry granulation at base of wound . Inferior but in close proximity to L sacral wound ,pt noted to have darker skin tone with scattered areas that are fluctuant and partially opened with small amt of sanguineous exudate noted (L) 9cm x (W)11.5cm. Resolving pressure injury noted to base of scrotum . Base of wound pink and dry (L)1cm x (W)0.8cm. Unstageable pressure injury noted to R heel extending into plantar aspect of R heel.At plantar aspect of heel soft necrosis noted that is oozing small amt brown purulent exudate(L)3cm x (W)3.5cm. Surrounding the area of necrosis, wound is black with fluctuance and marginal erythema along edges. Wound is malodorous.(L)8cm x (W)9.5cm. L heel is boggy with non-blanching erythema. Tx.Plan: Apply Cavilon Skin Barrier to posterior neck. Cover with Optifoam drsg. Change every 3 days and prn. Apply Moisture Barrier Paste to sacrum. Cover with Optifoam drsg. Change every 3days and prn. Apply Moisture Barrier Paste to Scrotum with each incontinence care. Apply Betadine to R heel . Cover with ABD pad and wrap with kerlix Daily and prn. Apply Cavilon Skin Barrier to R heel. Cover with Optifoam drsg. Change every 7 days and prn. APM/LARISSA Mattress overlay. Reposition at least every 2hours or as tolerated. Off-load heels with pillow. (3) Severe sepsis Assessment & Plan: Leukocytosis, lactic acidosis, hyperkalemia, hyponatremia. - improved Severe sepsis - recovering IV antibiotics as per infectious disease Trend labs US abd noted picc placed and midline removed given dislodged Wound care as above We will follow with recommendations Thank you for this consultation Abdoul Lucas Jun 28, 2019 10:37
--- NOTE | 2019-06-28 10:50 | Critical Care Progress Note ---
Assessment/Plan Assessment/Plan chronic respiratory failure multifocal pneumonia hypoxemia sepsis leukocytosis hyponatremia ARF trach GT severe PCM chronic encephalopathy possible colitis PLAN vent support as is- no wean and keep on AC monitor acid base and adjust iv antibiotics noted and reviewed monitor imaging off load and monitor skin exam all care reviewed in detail monitor for seizures close follow up of all parameters dc to subacute once all cleared impression, plan, and exam edited and reviewed in detail care discussed with tool machinist - Subjective Interval Events: care noted and reviewed on vent poor LOC ROS Limited/Unobtainable: Yes Condition: critical EKG Rhythm: Sinus Rhythm Residuals: minimal Tube Feeding Tolerated: yes I&O: Intake and Output 06/27/19 06/28/19 19:00 07:00 Intake Total 989.08 ml 550 ml Output Total 350 ml 1500 ml Balance 639.08 ml -950 ml Free Water 50 ml IV Total 339.08 ml Tube Feeding 600 ml 550 ml Output Urine Total 350 ml 1500 ml Critical Care - Objective Last 24 Hour Vital Signs Date Time Temp Pulse Resp B/P (MAP) Pulse Ox O2 Delivery O2 Flow Rate FiO2 06/28/19 08:57 68 20 100 06/28/19 08:00 98.1 72 20 143/88 (106) 100 06/28/19 08:00 100 06/28/19 08:00 Mechanical Ventilator 06/28/19 07:23 81 22 100 06/28/19 05:20 71 27 100 06/28/19 04:00 98.6 68 24 123/77 (92) 100 06/28/19 04:00 100 06/28/19 04:00 Mechanical Ventilator 06/28/19 03:34 92 06/28/19 03:00 86 27 100 06/28/19 01:15 71 24 100 06/28/19 00:00 98.8 81 26 118/69 (85) 95 06/28/19 00:00 Mechanical Ventilator 06/27/19 23:49 88 06/27/19 23:15 76 25 100 06/27/19 21:10 72 24 100 06/27/19 20:00 100 06/27/19 20:00 99.2 73 28 118/66 (83) 99 06/27/19 20:00 Mechanical Ventilator 06/27/19 19:47 67 06/27/19 19:25 68 25 100 06/27/19 17:02 70 22 100 06/27/19 16:00 98.3 78 27 128/72 (90) 100 06/27/19 16:00 Mechanical Ventilator 06/27/19 16:00 100 06/27/19 15:55 77 06/27/19 14:30 100 25 100 06/27/19 12:48 81 24 100 06/27/19 12:04 100 06/27/19 12:00 Mechanical Ventilator 06/27/19 12:00 97.8 76 22 109/61 (77) 100 06/27/19 11:40 68 06/27/19 10:56 95 20 100 06/27/19 10:55 97 20 100 06/27/19 10:42 76 25 100 Labs: Labs Test 06/26/19 03:20 06/28/19 03:12 White Blood Count 14.5 K/UL (4.8-10.8) 12.0 K/UL (4.8-10.8) Red Blood Count 3.23 M/UL (4.70-6.10) 3.17 M/UL (4.70-6.10) Hemoglobin 9.4 G/DL (14.2-18.0) 9.0 G/DL (14.2-18.0) Hematocrit 28.8 % (42.0-52.0) 28.3 % (42.0-52.0) Mean Corpuscular Volume 89 FL (80-99) 89 FL (80-99) Mean Corpuscular Hemoglobin 29.3 PG (27.0-31.0) 28.5 PG (27.0-31.0) Mean Corpuscular Hemoglobin Concent 32.8 G/DL (32.0-36.0) 31.9 G/DL (32.0-36.0) Red Cell Distribution Width 16.6 % (11.6-14.8) 16.0 % (11.6-14.8) Platelet Count 208 K/UL (150-450) 259 K/UL (150-450) Mean Platelet Volume 7.8 FL (6.5-10.1) 6.8 FL (6.5-10.1) Neutrophils (%) (Auto) 74.6 % (45.0-75.0) 69.4 % (45.0-75.0) Lymphocytes (%) (Auto) 16.7 % (20.0-45.0) 21.3 % (20.0-45.0) Monocytes (%) (Auto) 5.1 % (1.0-10.0) 5.4 % (1.0-10.0) Eosinophils (%) (Auto) 3.1 % (0.0-3.0) 3.4 % (0.0-3.0) Basophils (%) (Auto) 0.6 % (0.0-2.0) 0.5 % (0.0-2.0) Sodium Level 143 MMOL/L (136-145) 143 MMOL/L (136-145) Potassium Level 4.4 MMOL/L (3.5-5.1) 4.1 MMOL/L (3.5-5.1) Chloride Level 109 MMOL/L (98-107) 106 MMOL/L (98-107) Carbon Dioxide Level 28 MMOL/L (21-32) 32 MMOL/L (21-32) Anion Gap 6 mmol/L (5-15) 5 mmol/L (5-15) Blood Urea Nitrogen 13 mg/dL (7-18) 13 mg/dL (7-18) Creatinine 0.7 MG/DL (0.55-1.30) 0.8 MG/DL (0.55-1.30) Estimat Glomerular Filtration Rate mL/min (>60) mL/min (>60) Glucose Level 151 MG/DL (74-106) 203 MG/DL (74-106) Calcium Level 8.1 MG/DL (8.5-10.1) 8.2 MG/DL (8.5-10.1) Magnesium Level 1.8 MG/DL (1.8-2.4) Total Bilirubin 0.4 MG/DL (0.2-1.0) 0.4 MG/DL (0.2-1.0) Aspartate Amino Transf (AST/SGOT) 17 U/L (15-37) 21 U/L (15-37) Alanine Aminotransferase (ALT/SGPT) 14 U/L (12-78) 14 U/L (12-78) Alkaline Phosphatase 101 U/L (46-116) 93 U/L (46-116) Pro-B-Type Natriuretic Peptide 5677 pg/mL (0-125) 3189 pg/mL (0-125) Total Protein 6.9 G/DL (6.4-8.2) 7.0 G/DL (6.4-8.2) Albumin 1.5 G/DL (3.4-5.0) 1.5 G/DL (3.4-5.0) Globulin 5.4 g/dL 5.5 g/dL Albumin/Globulin Ratio 0.3 (1.0-2.7) 0.3 (1.0-2.7) Objective: WDWN trach and vent noted anasarca reduced breath sounds bilaterally with scattered rhonchi [id number] without MRG NABS nontender no HSM; GT; no distention no CCE nonfocal poor LOC skin exam reviewed reviewed and examined Micro: Microbiology Date/Time Source Procedure Growth Status 06/26/19 13:40 Sputum Gram Stain - Final Resulted 06/26/19 13:40 Sputum Culture - Preliminary Gram Negative Bacillus 1 Gram Negative Bacillus 2 Resulted Accucheck: 200 Bakari Montanez MD Jun 28, 2019 10:50
--- NOTE | 2019-06-28 11:04 | Diagnostic Imaging Report ---
EXAM: XR Chest, 1 View CLINICAL HISTORY: COUGH TECHNIQUE: Frontal view of the chest. COMPARISON: Chest x-ray, 06 25 19 FINDINGS: Lungs: Diffuse bilateral airspace opacities, slightly improved in the right lung and left upper lobe and slightly worsening left mid to left lower lung. Pleural space: Left lung base opacity may be worsening pleural effusion. Probable small right pleural effusion about the same. No pneumothorax. Heart: Heart size upper limits normal. Mediastinum: Unremarkable. Bones joints: Unremarkable. Tubes, lines and devices: Interval placement of a left PICC line tip at the cavoatrial junction. Tracheostomy tube. Interval removal of the right IJ catheter. IMPRESSION: 1. Diffuse bilateral airspace opacities, slightly improved in the right lung and left upper lobe and slightly worsening left mid to left lower lung. 2. Left lung base opacity may be worsening pleural effusion. Probable small right pleural effusion about the same. 3. Interval placement of a left PICC line tip at the cavoatrial junction.
[2019-06-28 12:00] VITALS: BP 141/67
[2019-06-28] MEDS ORDERED: NS 275ml ONE ×2 (15:24→16:16)
--- NOTE | 2019-06-28 15:58 | Infectious Diseases Prog Note ---
Assessment/Plan Assessment/Plan A 1. Proteus & Serratia pneumonia 2. shock, resolved 3. cirrhosis 4.Ventilatory dependent respiratory failure 5. 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 Anemia 8. Thrombocytopenia 9. Gastritis P 1. Discontinue Rocephin 2. poor prognosis Subjective ROS Limited/Unobtainable: Yes Constitutional: Denies: fever Allergies: Coded Allergies: No Known Allergies (Unverified , 07/04/18) Objective Vital Signs Last 24 Hour Vital Signs Date Time Temp Pulse Resp B/P (MAP) Pulse Ox O2 Delivery O2 Flow Rate FiO2 06/28/19 15:17 67 26 100 06/28/19 12:55 85 24 100 06/28/19 12:00 100 06/28/19 12:00 98.4 75 18 141/67 (91) 100 06/28/19 12:00 Mechanical Ventilator 06/28/19 11:23 80 06/28/19 10:49 84 25 100 06/28/19 08:57 68 20 100 06/28/19 08:00 98.1 72 20 143/88 (106) 100 06/28/19 08:00 100 06/28/19 08:00 Mechanical Ventilator 06/28/19 07:38 70 06/28/19 07:23 81 22 100 06/28/19 05:20 71 27 100 06/28/19 04:00 98.6 68 24 123/77 (92) 100 06/28/19 04:00 100 06/28/19 04:00 Mechanical Ventilator 06/28/19 03:34 92 06/28/19 03:00 86 27 100 06/28/19 01:15 71 24 100 06/28/19 00:00 98.8 81 26 118/69 (85) 95 06/28/19 00:00 Mechanical Ventilator 06/27/19 23:49 88 06/27/19 23:15 76 25 100 06/27/19 21:10 72 24 100 06/27/19 20:00 100 06/27/19 20:00 99.2 73 28 118/66 (83) 99 06/27/19 20:00 Mechanical Ventilator 06/27/19 19:47 67 06/27/19 19:25 68 25 100 06/27/19 17:02 70 22 100 06/27/19 16:00 98.3 78 27 128/72 (90) 100 06/27/19 16:00 Mechanical Ventilator 06/27/19 16:00 100 Height (Feet): 5 Height (Inches): 5.00 Weight (Pounds): 213 HEENT: status post trach Respiratory/Chest: lungs clear, other - on ventilator Cardiovascular: normal rate, other - left arm PICC line Abdomen: soft, non tender, other - GT feding Extremities: other - generalized edema Neurologic/Psychiatric: aphasia Microbiology Date/Time Source Procedure Growth Status 06/26/19 13:40 Sputum Gram Stain - Final Resulted 06/26/19 13:40 Sputum Culture - Preliminary Gram Negative Bacillus 1 Gram Negative Bacillus 2 Resulted Laboratory Tests Test 06/28/19 03:12 White Blood Count 12.0 K/UL (4.8-10.8) H Red Blood Count 3.17 M/UL (4.70-6.10) L Hemoglobin 9.0 G/DL (14.2-18.0) L Hematocrit 28.3 % (42.0-52.0) L Mean Corpuscular Volume 89 FL (80-99) Mean Corpuscular Hemoglobin 28.5 PG (27.0-31.0) Mean Corpuscular Hemoglobin Concent 31.9 G/DL (32.0-36.0) L Red Cell Distribution Width 16.0 % (11.6-14.8) H Platelet Count 259 K/UL (150-450) Mean Platelet Volume 6.8 FL (6.5-10.1) Neutrophils (%) (Auto) 69.4 % (45.0-75.0) Lymphocytes (%) (Auto) 21.3 % (20.0-45.0) Monocytes (%) (Auto) 5.4 % (1.0-10.0) Eosinophils (%) (Auto) 3.4 % (0.0-3.0) H Basophils (%) (Auto) 0.5 % (0.0-2.0) Sodium Level 143 MMOL/L (136-145) Potassium Level 4.1 MMOL/L (3.5-5.1) Chloride Level 106 MMOL/L (98-107) Carbon Dioxide Level 32 MMOL/L (21-32) Anion Gap 5 mmol/L (5-15) Blood Urea Nitrogen 13 mg/dL (7-18) Creatinine 0.8 MG/DL (0.55-1.30) Estimat Glomerular Filtration Rate mL/min (>60) Glucose Level 203 MG/DL (74-106) H Calcium Level 8.2 MG/DL (8.5-10.1) L Total Bilirubin 0.4 MG/DL (0.2-1.0) Aspartate Amino Transf (AST/SGOT) 21 U/L (15-37) Alanine Aminotransferase (ALT/SGPT) 14 U/L (12-78) Alkaline Phosphatase 93 U/L (46-116) Pro-B-Type Natriuretic Peptide 3189 pg/mL (0-125) H Total Protein 7.0 G/DL (6.4-8.2) Albumin 1.5 G/DL (3.4-5.0) L Globulin 5.5 g/dL Albumin/Globulin Ratio 0.3 (1.0-2.7) L Current Medications Medications (Trade) Dose Ordered Sig/Derrick Route PRN Reason Start Time Stop Time Status Last Admin Dose Admin Ceftriaxone Sodium 1 gm/ Sodium Chloride 55 ml @ 110 mls/hr DAILY IVPB 06/24/19 09:00 06/28/19 23:59 06/28/19 08:28 Chlorhexidine Gluconate (Gwendolyn-Hex 2%) 1 applic DAILY@2000 TOPIC 06/25/19 20:00 07/25/19 19:59 06/27/19 20:32 Dextrose (Dextrose 50%) 25 ml Q30M PRN IV Hypoglycemia 06/22/19 17:30 07/17/19 07:59 Dextrose (Dextrose 50%) 50 ml Q30M PRN IV Hypoglycemia 06/22/19 17:30 07/17/19 07:59 Insulin Aspart (NovoLOG) Q6HR SUBQ 06/23/19 12:00 07/22/19 17:44 06/28/19 12:50 Lansoprazole (Prevacid) 30 mg DAILY GT 06/23/19 09:00 07/23/19 08:59 06/28/19 08:29 Levetiracetam (Keppra) 1,000 mg Q12HR GT 06/22/19 21:00 07/19/19 20:59 06/28/19 08:28 Triamcinolone (Kenalog) 1 applic EVERY 12 HOURS TOPIC 06/25/19 15:00 07/25/19 14:59 06/28/19 08:28 Carlos Amaro MD Jun 28, 2019 15:58
[2019-06-28 16:00] VITALS: BP 134/78
[2019-06-28] MEDS ORDERED: Tubing IV Secondary IV ONE (16:16)
[2019-06-28] MEDS ORDERED: NS 500ML ONE (16:16)
[2019-06-28 20:00] VITALS: BP 128/70
--- NOTE | 2019-06-28 20:09 | General Progress Note ---
Assessment/Plan Status: stable, unchanged Assessment/Plan: Assessment - Recent melena/heme (+) stools --> EGD showed gastritis, no varix - Anemia - Hepatitis C positive - Chronic liver disease with thrombocytopenia, possibly portal HTN - Resp failure - s/p trach - dysphagia - s/p PEG - Anoxic encephalopathy, non communicative - bed bound, contracted - poor Px Recommendations - continue TF - PPI - monitor CBC - Elevate HOB - Vent care, frequent suction Subjective Allergies: Coded Allergies: No Known Allergies (Unverified , 07/04/18) Subjective no events on TF loud ronchi non communicative Objective Last 24 Hour Vital Signs Date Time Temp Pulse Resp B/P (MAP) Pulse Ox O2 Delivery O2 Flow Rate FiO2 06/28/19 19:06 78 28 100 80 06/28/19 19:00 80 06/28/19 17:04 74 28 100 06/28/19 16:00 100 06/28/19 16:00 99 06/28/19 16:00 Mechanical Ventilator 06/28/19 16:00 98.5 68 20 134/78 (96) 100 06/28/19 15:17 67 26 100 06/28/19 12:55 85 24 100 06/28/19 12:00 100 06/28/19 12:00 98.4 75 18 141/67 (91) 100 06/28/19 12:00 Mechanical Ventilator 06/28/19 11:23 80 06/28/19 10:49 84 25 100 06/28/19 08:57 68 20 100 06/28/19 08:00 98.1 72 20 143/88 (106) 100 06/28/19 08:00 100 06/28/19 08:00 Mechanical Ventilator 06/28/19 07:38 70 06/28/19 07:23 81 22 100 06/28/19 05:20 71 27 100 06/28/19 04:00 98.6 68 24 123/77 (92) 100 06/28/19 04:00 100 06/28/19 04:00 Mechanical Ventilator 06/28/19 03:34 92 06/28/19 03:00 86 27 100 06/28/19 01:15 71 24 100 06/28/19 00:00 98.8 81 26 118/69 (85) 95 06/28/19 00:00 Mechanical Ventilator 06/27/19 23:49 88 06/27/19 23:15 76 25 100 06/27/19 21:10 72 24 100 Intake and Output 06/27/19 06/28/19 18:59 06:59 Intake Total 1014.08 ml 600 ml Output Total 1850 ml Balance 1014.08 ml -1250 ml Free Water 50 ml IV Total 364.08 ml Tube Feeding 600 ml 600 ml Output Urine Total 1850 ml Laboratory Tests 06/28/19 03:12: White Blood Count 12.0H, Red Blood Count 3.17L, Hemoglobin 9.0L, Hematocrit 28.3L, Mean Corpuscular Volume 89, Mean Corpuscular Hemoglobin 28.5, Mean Corpuscular Hemoglobin Concent 31.9L, Red Cell Distribution Width 16.0H, Platelet Count 259, Mean Platelet Volume 6.8, Neutrophils (%) (Auto) 69.4, Lymphocytes (%) (Auto) 21.3, Monocytes (%) (Auto) 5.4, Eosinophils (%) (Auto) 3.4H, Basophils (%) (Auto) 0.5, Sodium Level 143, Potassium Level 4.1, Chloride Level 106, Carbon Dioxide Level 32, Anion Gap 5, Blood Urea Nitrogen 13, Creatinine 0.8, Estimat Glomerular Filtration Rate , Glucose Level 203H, Calcium Level 8.2L, Total Bilirubin 0.4, Aspartate Amino Transf (AST/SGOT) 21, Alanine Aminotransferase (ALT/SGPT) 14, Alkaline Phosphatase 93, Pro-B-Type Natriuretic Peptide 3189H, Total Protein 7.0, Albumin 1.5L, Globulin 5.5, Albumin/Globulin Ratio 0.3L Height (Feet): 5 Height (Inches): 5.00 Weight (Pounds): 213 Objective Debilitated AA man unresponsive NCAT (+) trach coarse BS RR abd soft, (+) GT no edema (+) OBS, contracted, non-verbal Manolo Okeefe MD Jun 28, 2019 20:09
[2019-06-28] MEDS: Dyna-Hex 2% Top Sol 2oz TOPIC SCH (21:06)
[2019-06-28] MEDS ORDERED: Acetaminophen 650mg/20.3ml GT PRN (21:15)
--- NOTE | 2019-06-28 21:15 | Progress Note ---
DATE: 06/28/2019 CARDIOLOGY PROGRESS NOTE SUBJECTIVE: The patient remains on ventilator support. He is off pressors. Oxygen needs remain elevated. Secretions from endotracheal tube are significant. Monitored rhythm is sinus with nonsustained ectopy. Recent chest x-ray reveals increasing infiltrates. OBJECTIVE: VITAL SIGNS: Blood pressure 143/88, pulse 72, respirations 20, and afebrile. LUNGS: Bilateral breath sounds. Rales and rhonchi. HEART: Regular rhythm and rate. Normal S1, S2. No new murmur. ABDOMEN: Soft. G-tube intact. EXTREMITIES: No edema. LABORATORY DATA: White count 12 and hemoglobin 9. Sodium 143, potassium 4.1, bicarb 32, BUN 13, and creatinine 0.8. Pro-natriuretic peptide down to 3100. Glucose 203. Albumin 1.5. IMPRESSION: 1. Volume status improved with diuresis. 2. Poor peripheral access. The patient has a PICC line. 3. Persistent pleural effusion on the left. 4. Acute on chronic diastolic congestive heart failure. 5. Recovered shock and sepsis with hypothermia. 6. Persisting respiratory failure. PLAN: 1. Antibiotics. 2. Respiratory hygiene. 3. Continue diuresis efforts. Weaning efforts. 4. Antimicrobials per Infectious Disease business system consultant. 5. Discharge planning to follow. 6. Presently with poor prognosis. 7. Thoracentesis to be considered. [place] M.D. DR: DESMOND JOB#: [id number] CC:
[2019-06-29] VITALS: BP 112/70
[2019-06-29] MEDS: NovoLOG Insulin Flexpen SUBQ SCH ×5 (00:47→23:44)
--- NOTE | 2019-06-29 03:45 | Progress Note ---
DATE: 06/29/2019 SUBJECTIVE: The patient had temperature spike last night. He was given Tylenol. He remains on ventilator support. Blood pressure is stable. He is not on pressors. OBJECTIVE: VITAL SIGNS: Blood pressure 112/70, heart rate up to 108 earlier and now 60, respiratory rate 20, and afebrile, T-max 100.5. LUNGS: Coarse breath sounds. Thin yellow secretions from the trach. CARDIAC: Regular rhythm and rate. Normal S1 and S2 with no new murmur. ABDOMEN: Soft with G-tube. EXTREMITIES: Reveal no edema. IMPRESSION: 1. Respiratory failure. 2. Sepsis with recovered shock and hypothermia. 3. Acute on chronic diastolic congestive heart failure, improving with diuresis. 4. Nonsustained ventricular ectopy. 5. Seizure disorder. PLAN: 1. Ventilator support. Wean as able. 2. Reculture of sputum. 3. Respiratory hygiene. 4. Antimicrobials per Infectious Disease hospice consultant. 5. Periodic diuresis based on clinical parameters. 6. Trend natriuretic peptide assay. 7. Remains at high risk with poor prognosis. [place] M.D. DR: VAIBHAV JOB#: [id number] CC:
[2019-06-29 04:00] VITALS: BP 100/64
[2019-06-29 05:20] LABS: BASOPHILS % (AUTO) 0.6 % (0.0-2.0); EOSINOPHILS % (AUTO) 4.2 % (0.0-3.0); HEMATOCRIT 28.5 % (42.0-52.0); HEMOGLOBIN 9.1 G/DL (14.2-18.0); LYMPHOCYTES % (AUTO) 20.6 % (20.0-45.0); MEAN CORPUSCULAR VOLUME 89 FL (80-99); MONOCYTES % (AUTO) 6.7 % (1.0-10.0); PLATELET COUNT 275 K/UL (150-450); RED BLOOD COUNT 3.21 M/UL (4.70-6.10); WHITE BLOOD COUNT 9.7 K/UL (4.8-10.8)
[2019-06-29 06:12] LABS: ALANINE AMINOTRANSFERASE 17 U/L (12-78); ALBUMIN 1.5 G/DL (3.4-5.0); ALBUMIN/GLOBULIN RATIO 0.3 (1.0-2.7); ALKALINE PHOSPHATASE 83 U/L (46-116); ANION GAP 2 mmol/L (5-15); ASPARTATE AMINO TRANSFERASE 18 U/L (15-37); BILIRUBIN,TOTAL 0.4 MG/DL (0.2-1.0); BLOOD UREA NITROGEN 12 mg/dL (7-18); CALCIUM 8.3 MG/DL (8.5-10.1); CARBON DIOXIDE 36 MMOL/L (21-32); CHLORIDE 103 MMOL/L (98-107); CREATININE 0.8 MG/DL (0.55-1.30); POTASSIUM 3.6 MMOL/L (3.5-5.1); SODIUM 141 MMOL/L (136-145)
--- NOTE | 2019-06-29 07:41 | Critical Care Progress Note ---
Assessment/Plan Assessment/Plan chronic respiratory failure multifocal pneumonia hypoxemia sepsis leukocytosis hyponatremia ARF trach GT severe PCM chronic encephalopathy possible colitis ? pulmonary edema PLAN vent support as is- no wean and keep on AC monitor acid base and adjust iv antibiotics and cultures reviewed monitor imaging- not improved off load and monitor skin exam all care reviewed in detail monitor for seizures full code prognosis very poor close follow up of all parameters dc to subacute once all cleared impression, plan, and exam edited and reviewed in detail care discussed with president & founder - Subjective Interval Events: imaging not improved care noted on vent overall same ROS Limited/Unobtainable: Yes Condition: unchanged EKG Rhythm: Sinus Rhythm Residuals: minimal Tube Feeding Tolerated: yes I&O: Intake and Output 06/28/19 06/29/19 19:00 07:00 Intake Total 755 ml 760 ml Output Total 2300 ml 500 ml Balance -1545 ml 260 ml Free Water 200 ml IV Total 55 ml Tube Feeding 600 ml 500 ml Other 100 ml 60 ml Output Urine Total 2300 ml 500 ml # Bowel Movements 1 Critical Care - Objective CXR: diffuse infiltrates Last 24 Hour Vital Signs Date Time Temp Pulse Resp B/P (MAP) Pulse Ox O2 Delivery O2 Flow Rate FiO2 06/29/19 07:19 72 26 50 06/29/19 05:15 67 20 50 06/29/19 04:00 61 06/29/19 04:00 50 06/29/19 04:00 98.5 61 20 100/64 (76) 100 06/29/19 04:00 Mechanical Ventilator 06/29/19 03:00 64 26 50 06/29/19 01:00 65 20 50 06/29/19 00:00 59 06/29/19 00:00 60 06/29/19 00:00 98.8 60 20 112/70 (84) 100 06/29/19 00:00 Mechanical Ventilator 06/28/19 22:43 108 30 60 06/28/19 21:45 99.0 06/28/19 21:01 92 25 70 06/28/19 21:00 70 06/28/19 20:00 100.5 89 20 128/70 (89) 100 06/28/19 20:00 91 06/28/19 20:00 Mechanical Ventilator 06/28/19 19:06 78 28 100 80 06/28/19 19:00 80 06/28/19 17:04 74 28 100 06/28/19 16:00 100 06/28/19 16:00 99 06/28/19 16:00 Mechanical Ventilator 06/28/19 16:00 98.5 68 20 134/78 (96) 100 06/28/19 15:17 67 26 100 06/28/19 12:55 85 24 100 06/28/19 12:00 100 06/28/19 12:00 98.4 75 18 141/67 (91) 100 06/28/19 12:00 Mechanical Ventilator 06/28/19 11:23 80 06/28/19 10:49 84 25 100 06/28/19 08:57 68 20 100 06/28/19 08:00 98.1 72 20 143/88 (106) 100 06/28/19 08:00 100 06/28/19 08:00 Mechanical Ventilator Labs: Labs Test 06/28/19 03:12 06/29/19 03:00 White Blood Count 12.0 K/UL (4.8-10.8) 9.7 K/UL (4.8-10.8) Red Blood Count 3.17 M/UL (4.70-6.10) 3.21 M/UL (4.70-6.10) Hemoglobin 9.0 G/DL (14.2-18.0) 9.1 G/DL (14.2-18.0) Hematocrit 28.3 % (42.0-52.0) 28.5 % (42.0-52.0) Mean Corpuscular Volume 89 FL (80-99) 89 FL (80-99) Mean Corpuscular Hemoglobin 28.5 PG (27.0-31.0) 28.4 PG (27.0-31.0) Mean Corpuscular Hemoglobin Concent 31.9 G/DL (32.0-36.0) 32.0 G/DL (32.0-36.0) Red Cell Distribution Width 16.0 % (11.6-14.8) 16.0 % (11.6-14.8) Platelet Count 259 K/UL (150-450) 275 K/UL (150-450) Mean Platelet Volume 6.8 FL (6.5-10.1) 7.0 FL (6.5-10.1) Neutrophils (%) (Auto) 69.4 % (45.0-75.0) 68.0 % (45.0-75.0) Lymphocytes (%) (Auto) 21.3 % (20.0-45.0) 20.6 % (20.0-45.0) Monocytes (%) (Auto) 5.4 % (1.0-10.0) 6.7 % (1.0-10.0) Eosinophils (%) (Auto) 3.4 % (0.0-3.0) 4.2 % (0.0-3.0) Basophils (%) (Auto) 0.5 % (0.0-2.0) 0.6 % (0.0-2.0) Sodium Level 143 MMOL/L (136-145) 141 MMOL/L (136-145) Potassium Level 4.1 MMOL/L (3.5-5.1) 3.6 MMOL/L (3.5-5.1) Chloride Level 106 MMOL/L (98-107) 103 MMOL/L (98-107) Carbon Dioxide Level 32 MMOL/L (21-32) 36 MMOL/L (21-32) Anion Gap 5 mmol/L (5-15) 2 mmol/L (5-15) Blood Urea Nitrogen 13 mg/dL (7-18) 12 mg/dL (7-18) Creatinine 0.8 MG/DL (0.55-1.30) 0.8 MG/DL (0.55-1.30) Estimat Glomerular Filtration Rate mL/min (>60) mL/min (>60) Glucose Level 203 MG/DL (74-106) 211 MG/DL (74-106) Calcium Level 8.2 MG/DL (8.5-10.1) 8.3 MG/DL (8.5-10.1) Total Bilirubin 0.4 MG/DL (0.2-1.0) 0.4 MG/DL (0.2-1.0) Aspartate Amino Transf (AST/SGOT) 21 U/L (15-37) 18 U/L (15-37) Alanine Aminotransferase (ALT/SGPT) 14 U/L (12-78) 17 U/L (12-78) Alkaline Phosphatase 93 U/L (46-116) 83 U/L (46-116) Pro-B-Type Natriuretic Peptide 3189 pg/mL (0-125) Total Protein 7.0 G/DL (6.4-8.2) 7.0 G/DL (6.4-8.2) Albumin 1.5 G/DL (3.4-5.0) 1.5 G/DL (3.4-5.0) Globulin 5.5 g/dL 5.5 g/dL Albumin/Globulin Ratio 0.3 (1.0-2.7) 0.3 (1.0-2.7) Magnesium Level 1.7 MG/DL (1.8-2.4) Objective: WDWN trach and vent noted anasarca reduced breath sounds bilaterally with scattered rhonchi and overall same [id number] without MRG NABS nontender no HSM; GT; no distention no CC some edema nonfocal poor LOC skin exam reviewed reviewed and examined Micro: Microbiology Date/Time Source Procedure Growth Status 06/26/19 13:40 Sputum Gram Stain - Final Resulted 06/26/19 13:40 Sputum Culture - Preliminary Pseudomonas Aeruginosa Acinetobacter Baumannii Complx Resulted Accucheck: 211 Bakari Montanez MD Jun 29, 2019 07:41
[2019-06-29 08:00] VITALS: BP 140/80
[2019-06-29] MEDS: levETIRAcetam 500mg/5ml Liquid GT SCH ×2 (09:02→20:02)
[2019-06-29] MEDS: Triamcinolone 0.1% oint TOPIC SCH ×2 (09:03→20:03)
--- NOTE | 2019-06-29 10:10 | General Progress Note ---
Assessment/Plan Problem List: (1) GIB (gastrointestinal bleeding) ICD Codes: K92.2 - Gastrointestinal hemorrhage, unspecified SNOMED: 67068453 (2) Anemia ICD Codes: D64.9 - Anemia, unspecified SNOMED: 399104013 Qualifiers: Qualified Codes: D64.9 - Anemia, unspecified (3) Hyponatremia ICD Codes: E87.1 - Hypo-osmolality and hyponatremia SNOMED: 12794401 (4) Renal insufficiency ICD Codes: N28.9 - Disorder of kidney and ureter, unspecified; R65.20 - Severe sepsis without septic shock SNOMED: 686412916, 170665848 (5) Pneumonia ICD Codes: J18.9 - Pneumonia, unspecified organism SNOMED: 583432413, 481246226 Qualifiers: Qualified Codes: J18.9 - Pneumonia, unspecified organism (6) Severe sepsis ICD Codes: A41.9 - Sepsis, unspecified organism; R65.20 - Severe sepsis without septic shock SNOMED: 61921362 (7) Decubitus skin ulcer ICD Codes: L89.90 - Pressure ulcer of unspecified site, unspecified stage SNOMED: 766587546 (8) Leukocytosis ICD Codes: D72.829 - Elevated white blood cell count, unspecified SNOMED: 490408545, 577211460 (9) Hyperglycemia ICD Codes: R73.9 - Hyperglycemia, unspecified SNOMED: 27272992 (10) Hypothermia ICD Codes: T68.XXXA - Hypothermia, initial encounter SNOMED: 457446292 Qualifiers: Qualified Codes: T68.XXXA - Hypothermia, initial encounter Status: stable, unchanged Assessment/Plan: cont current rx monitor off pressors iv abx per id follow up sputum cultures monitor cxr lasix PPI rx vent support resp rx suctioning as needed try to wean fio2 monitor cxr poor prognosis d/c planning Subjective ROS Limited/Unobtainable: Yes Constitutional: Reports: malaise, weakness HEENT: Reports: no symptoms Cardiovascular: Reports: edema Respiratory: Reports: shortness of breath, sputum Gastrointestinal/Abdominal: Reports: difficulty swallowing Genitourinary: Reports: no symptoms Neurologic/Psychiatric: Reports: pre-existing deficit, seizure Endocrine: Reports: no symptoms Hematologic/Lymphatic: Reports: anemia Allergies: Coded Allergies: No Known Allergies (Unverified , 07/04/18) All Systems: reviewed and negative except above Subjective no change. decreased o2 requirements. no real change. no fever or chills. labs improving. no szs. facial twitching but EEG negative Objective Last 24 Hour Vital Signs Date Time Temp Pulse Resp B/P (MAP) Pulse Ox O2 Delivery O2 Flow Rate FiO2 06/29/19 08:34 61 18 50 06/29/19 08:00 97.9 61 18 140/80 (100) 99 06/29/19 08:00 30 06/29/19 07:19 72 26 50 06/29/19 05:15 67 20 50 06/29/19 04:00 61 06/29/19 04:00 50 06/29/19 04:00 98.5 61 20 100/64 (76) 100 06/29/19 04:00 Mechanical Ventilator 06/29/19 03:00 64 26 50 06/29/19 01:00 65 20 50 06/29/19 00:00 59 06/29/19 00:00 60 06/29/19 00:00 98.8 60 20 112/70 (84) 100 06/29/19 00:00 Mechanical Ventilator 06/28/19 22:43 108 30 60 06/28/19 21:45 99.0 06/28/19 21:01 92 25 70 06/28/19 21:00 70 06/28/19 20:00 100.5 89 20 128/70 (89) 100 06/28/19 20:00 91 06/28/19 20:00 Mechanical Ventilator 06/28/19 19:06 78 28 100 80 06/28/19 19:00 80 06/28/19 17:04 74 28 100 06/28/19 16:00 100 06/28/19 16:00 99 06/28/19 16:00 Mechanical Ventilator 06/28/19 16:00 98.5 68 20 134/78 (96) 100 06/28/19 15:17 67 26 100 06/28/19 12:55 85 24 100 06/28/19 12:00 100 06/28/19 12:00 98.4 75 18 141/67 (91) 100 06/28/19 12:00 Mechanical Ventilator 06/28/19 11:23 80 06/28/19 10:49 84 25 100 Intake and Output 06/28/19 06/29/19 19:00 07:00 Intake Total 755 ml 760 ml Output Total 2300 ml 500 ml Balance -1545 ml 260 ml Free Water 200 ml IV Total 55 ml Tube Feeding 600 ml 500 ml Other 100 ml 60 ml Output Urine Total 2300 ml 500 ml # Bowel Movements 1 Laboratory Tests 06/29/19 03:00: White Blood Count 9.7, Red Blood Count 3.21L, Hemoglobin 9.1L, Hematocrit 28.5L , Mean Corpuscular Volume 89, Mean Corpuscular Hemoglobin 28.4, Mean Corpuscular Hemoglobin Concent 32.0, Red Cell Distribution Width 16.0H, Platelet Count 275, Mean Platelet Volume 7.0, Neutrophils (%) (Auto) 68.0, Lymphocytes (%) (Auto) 20.6, Monocytes (%) (Auto) 6.7, Eosinophils (%) (Auto) 4.2H, Basophils (%) (Auto) 0.6, Sodium Level 141, Potassium Level 3.6, Chloride Level 103, Carbon Dioxide Level 36H, Anion Gap 2L, Blood Urea Nitrogen 12, Creatinine 0.8, Estimat Glomerular Filtration Rate , Glucose Level 211H, Calcium Level 8.3L, Magnesium Level 1.7L, Total Bilirubin 0.4, Aspartate Amino Transf (AST/SGOT) 18, Alanine Aminotransferase (ALT/SGPT) 17, Alkaline Phosphatase 83, Total Protein 7.0, Albumin 1.5L, Globulin 5.5, Albumin/Globulin Ratio 0.3L Height (Feet): 5 Height (Inches): 5.00 Weight (Pounds): 211 Objective General Appearance: WD/WN, lethargic Neck: supple Cardiovascular: regular rhythm Respiratory/Chest: chest wall non-tender, lungs clear, normal breath sounds, no respiratory distress, no accessory muscle use Abdomen: normal bowel sounds, non tender, soft, no organomegaly, no mass Edema: mild edema Neurologic: disoriented, unresponsive, aphasia Chano Galeana MD Jun 29, 2019 10:10
[2019-06-29 12:00] VITALS: BP 121/93
[2019-06-29] MEDS ORDERED: NS 275ml ONE (15:17)
[2019-06-29 16:00] VITALS: BP 118/67
--- NOTE | 2019-06-29 16:02 | Surgery Progress Note ---
Surgery Progress Note Subjective Additional Comments leukocytosis resolved labs improved exam stable d/c planning Objective Last 24 Hour Vital Signs Date Time Temp Pulse Resp B/P (MAP) Pulse Ox O2 Delivery O2 Flow Rate FiO2 06/29/19 15:30 69 21 40 06/29/19 13:21 65 22 40 06/29/19 12:00 30 06/29/19 12:00 63 06/29/19 12:00 97.6 67 20 121/93 (102) 100 06/29/19 12:00 Mechanical Ventilator 06/29/19 11:10 60 16 50 06/29/19 08:34 61 18 50 06/29/19 08:00 Mechanical Ventilator 06/29/19 08:00 97.9 61 18 140/80 (100) 99 06/29/19 08:00 59 06/29/19 08:00 30 06/29/19 07:19 72 26 50 06/29/19 05:15 67 20 50 06/29/19 04:00 61 06/29/19 04:00 50 06/29/19 04:00 98.5 61 20 100/64 (76) 100 06/29/19 04:00 Mechanical Ventilator 06/29/19 03:00 64 26 50 06/29/19 01:00 65 20 50 06/29/19 00:00 59 06/29/19 00:00 60 06/29/19 00:00 98.8 60 20 112/70 (84) 100 06/29/19 00:00 Mechanical Ventilator 06/28/19 22:43 108 30 60 06/28/19 21:45 99.0 06/28/19 21:01 92 25 70 06/28/19 21:00 70 06/28/19 20:00 100.5 89 20 128/70 (89) 100 06/28/19 20:00 91 06/28/19 20:00 Mechanical Ventilator 06/28/19 19:06 78 28 100 80 06/28/19 19:00 80 06/28/19 17:04 74 28 100 I&O Intake and Output 06/28/19 06/29/19 19:00 07:00 Intake Total 755 ml 760 ml Output Total 2300 ml 500 ml Balance -1545 ml 260 ml Free Water 200 ml IV Total 55 ml Tube Feeding 600 ml 500 ml Other 100 ml 60 ml Output Urine Total 2300 ml 500 ml # Bowel Movements 1 Dressing: saturated Wound: clean Cardiovascular: RSR Respiratory: clear Abdomen: soft, non-tender, present bowel sounds Extremities: no cyanosis, other Laboratory Tests Test 06/29/19 03:00 White Blood Count 9.7 K/UL (4.8-10.8) Red Blood Count 3.21 M/UL (4.70-6.10) L Hemoglobin 9.1 G/DL (14.2-18.0) L Hematocrit 28.5 % (42.0-52.0) L Mean Corpuscular Volume 89 FL (80-99) Mean Corpuscular Hemoglobin 28.4 PG (27.0-31.0) Mean Corpuscular Hemoglobin Concent 32.0 G/DL (32.0-36.0) Red Cell Distribution Width 16.0 % (11.6-14.8) H Platelet Count 275 K/UL (150-450) Mean Platelet Volume 7.0 FL (6.5-10.1) Neutrophils (%) (Auto) 68.0 % (45.0-75.0) Lymphocytes (%) (Auto) 20.6 % (20.0-45.0) Monocytes (%) (Auto) 6.7 % (1.0-10.0) Eosinophils (%) (Auto) 4.2 % (0.0-3.0) H Basophils (%) (Auto) 0.6 % (0.0-2.0) Sodium Level 141 MMOL/L (136-145) Potassium Level 3.6 MMOL/L (3.5-5.1) Chloride Level 103 MMOL/L (98-107) Carbon Dioxide Level 36 MMOL/L (21-32) H Anion Gap 2 mmol/L (5-15) L Blood Urea Nitrogen 12 mg/dL (7-18) Creatinine 0.8 MG/DL (0.55-1.30) Estimat Glomerular Filtration Rate mL/min (>60) Glucose Level 211 MG/DL (74-106) H Calcium Level 8.3 MG/DL (8.5-10.1) L Magnesium Level 1.7 MG/DL (1.8-2.4) L Total Bilirubin 0.4 MG/DL (0.2-1.0) Aspartate Amino Transf (AST/SGOT) 18 U/L (15-37) Alanine Aminotransferase (ALT/SGPT) 17 U/L (12-78) Alkaline Phosphatase 83 U/L (46-116) Total Protein 7.0 G/DL (6.4-8.2) Albumin 1.5 G/DL (3.4-5.0) L Globulin 5.5 g/dL Albumin/Globulin Ratio 0.3 (1.0-2.7) L Plan Problems: (1) Leukocytosis (2) Decubitus skin ulcer Assessment & Plan: Pt presented on admission with multiple pressure injuries. Resolving pressure injury posterior neck under collar of trach. Base of wound has mostly pink epithelial with scattered small partial thickness wounds (L)2cm x (W)1.6cm. Tracheal stoma noted to have denuded area R side of stoma.. Resolving full thickness sacral pressure injury L sacrum (L)2.5cm x (W)1cm x (D) 0.2cm.Ruby granulation at base of wound . Inferior but in close proximity to L sacral wound ,pt noted to have darker skin tone with scattered areas that are fluctuant and partially opened with small amt of sanguineous exudate noted (L) 9cm x (W)11.5cm. Resolving pressure injury noted to base of scrotum . Base of wound pink and dry (L)1cm x (W)0.8cm. Unstageable pressure injury noted to R heel extending into plantar aspect of R heel.At plantar aspect of heel soft necrosis noted that is oozing small amt brown purulent exudate(L)3cm x (W)3.5cm. Surrounding the area of necrosis, wound is black with fluctuance and marginal erythema along edges. Wound is malodorous.(L)8cm x (W)9.5cm. L heel is boggy with non-blanching erythema. Tx.Plan: Apply Cavilon Skin Barrier to posterior neck. Cover with Optifoam drsg. Change every 3 days and prn. Apply Moisture Barrier Paste to sacrum. Cover with Optifoam drsg. Change every 3days and prn. Apply Moisture Barrier Paste to Scrotum with each incontinence care. Apply Betadine to R heel . Cover with ABD pad and wrap with kerlix Daily and prn. Apply Cavilon Skin Barrier to R heel. Cover with Optifoam drsg. Change every 7 days and prn. APM/LARISSA Mattress overlay. Reposition at least every 2hours or as tolerated. Off-load heels with pillow. (3) Severe sepsis Assessment & Plan: Leukocytosis, lactic acidosis, hyperkalemia, hyponatremia. - improved Severe sepsis - recovering IV antibiotics as per infectious disease Trend labs US abd noted picc placed and midline removed given dislodged Wound care as above We will follow with recommendations Thank you for this consultation Additional Comments d/c planning improved Abdoul Lucas Jun 29, 2019 16:02
--- NOTE | 2019-06-29 16:31 | General Progress Note ---
Assessment/Plan Status: stable, unchanged Assessment/Plan: Assessment - Recent melena/heme (+) stools --> EGD showed gastritis, no varix - Anemia - Hepatitis C positive - Chronic liver disease with thrombocytopenia, possibly portal HTN - Resp failure - s/p trach - dysphagia - s/p PEG - Anoxic encephalopathy, non communicative - bed bound, contracted - poor Px Recommendations - continue TF - PPI - monitor CBC - Elevate HOB - Vent care, frequent suction Subjective Allergies: Coded Allergies: No Known Allergies (Unverified , 07/04/18) Subjective no events on TF - held this am for residuals loud ronchi Objective Last 24 Hour Vital Signs Date Time Temp Pulse Resp B/P (MAP) Pulse Ox O2 Delivery O2 Flow Rate FiO2 06/29/19 15:30 69 21 40 06/29/19 13:21 65 22 40 06/29/19 12:00 30 06/29/19 12:00 63 06/29/19 12:00 97.6 67 20 121/93 (102) 100 06/29/19 12:00 Mechanical Ventilator 06/29/19 11:10 60 16 50 06/29/19 08:34 61 18 50 06/29/19 08:00 Mechanical Ventilator 06/29/19 08:00 97.9 61 18 140/80 (100) 99 06/29/19 08:00 59 06/29/19 08:00 30 06/29/19 07:19 72 26 50 06/29/19 05:15 67 20 50 06/29/19 04:00 61 06/29/19 04:00 50 06/29/19 04:00 98.5 61 20 100/64 (76) 100 06/29/19 04:00 Mechanical Ventilator 06/29/19 03:00 64 26 50 06/29/19 01:00 65 20 50 06/29/19 00:00 59 06/29/19 00:00 60 06/29/19 00:00 98.8 60 20 112/70 (84) 100 06/29/19 00:00 Mechanical Ventilator 06/28/19 22:43 108 30 60 06/28/19 21:45 99.0 06/28/19 21:01 92 25 70 06/28/19 21:00 70 06/28/19 20:00 100.5 89 20 128/70 (89) 100 06/28/19 20:00 91 06/28/19 20:00 Mechanical Ventilator 06/28/19 19:06 78 28 100 80 06/28/19 19:00 80 06/28/19 17:04 74 28 100 Intake and Output 06/28/19 06/29/19 19:00 07:00 Intake Total 755 ml 760 ml Output Total 2300 ml 500 ml Balance -1545 ml 260 ml Free Water 200 ml IV Total 55 ml Tube Feeding 600 ml 500 ml Other 100 ml 60 ml Output Urine Total 2300 ml 500 ml # Bowel Movements 1 Laboratory Tests 06/29/19 03:00: White Blood Count 9.7, Red Blood Count 3.21L, Hemoglobin 9.1L, Hematocrit 28.5L , Mean Corpuscular Volume 89, Mean Corpuscular Hemoglobin 28.4, Mean Corpuscular Hemoglobin Concent 32.0, Red Cell Distribution Width 16.0H, Platelet Count 275, Mean Platelet Volume 7.0, Neutrophils (%) (Auto) 68.0, Lymphocytes (%) (Auto) 20.6, Monocytes (%) (Auto) 6.7, Eosinophils (%) (Auto) 4.2H, Basophils (%) (Auto) 0.6, Sodium Level 141, Potassium Level 3.6, Chloride Level 103, Carbon Dioxide Level 36H, Anion Gap 2L, Blood Urea Nitrogen 12, Creatinine 0.8, Estimat Glomerular Filtration Rate , Glucose Level 211H, Calcium Level 8.3L, Magnesium Level 1.7L, Total Bilirubin 0.4, Aspartate Amino Transf (AST/SGOT) 18, Alanine Aminotransferase (ALT/SGPT) 17, Alkaline Phosphatase 83, Total Protein 7.0, Albumin 1.5L, Globulin 5.5, Albumin/Globulin Ratio 0.3L Height (Feet): 5 Height (Inches): 5.00 Weight (Pounds): 211 Objective Debilitated AA man unresponsive NCAT (+) trach coarse BS RR abd soft, (+) GT no edema (+) OBS, contracted, non-verbal Manolo Okeefe MD Jun 29, 2019 16:31
[2019-06-29 20:00] VITALS: BP 110/76
[2019-06-29] MEDS: Dyna-Hex 2% Top Sol 2oz TOPIC SCH (20:02)
[2019-06-30] VITALS: BP 121/69
[2019-06-30 04:00] VITALS: BP 104/54
[2019-06-30] MEDS: NovoLOG Insulin Flexpen SUBQ SCH ×2 (05:33→12:23)
[2019-06-30 08:00] VITALS: BP 114/74
--- NOTE | 2019-06-30 08:03 | General Progress Note ---
Assessment/Plan Status: stable, unchanged Assessment/Plan: Assessment - Recent melena/heme (+) stools --> EGD showed gastritis, no varix - Anemia - Hepatitis C positive - Chronic liver disease with thrombocytopenia, possibly portal HTN - Resp failure - s/p trach - dysphagia - s/p PEG - Anoxic encephalopathy, non communicative - bed bound, contracted - poor Px Recommendations - continue TF - PPI - monitor CBC - Elevate HOB - Vent care, frequent suction Subjective Allergies: Coded Allergies: No Known Allergies (Unverified , 07/04/18) Subjective no events non communicative loud ronchi Objective Last 24 Hour Vital Signs Date Time Temp Pulse Resp B/P (MAP) Pulse Ox O2 Delivery O2 Flow Rate FiO2 06/30/19 07:26 88 20 40 06/30/19 05:30 84 25 40 06/30/19 04:00 98.1 90 20 104/54 (71) 99 06/30/19 04:00 30 06/30/19 04:00 Mechanical Ventilator 06/30/19 03:36 94 06/30/19 03:30 85 26 40 06/30/19 01:24 89 22 40 06/30/19 00:00 98.1 95 19 121/69 (86) 99 06/30/19 00:00 Mechanical Ventilator 06/30/19 00:00 30 06/29/19 23:32 92 06/29/19 23:22 80 28 40 06/29/19 20:35 83 27 40 06/29/19 20:21 83 06/29/19 20:00 Mechanical Ventilator 06/29/19 20:00 30 06/29/19 20:00 98.6 81 18 110/76 (87) 99 06/29/19 19:30 92 36 40 06/29/19 17:09 71 20 40 06/29/19 16:00 97.7 68 18 118/67 (84) 97 06/29/19 16:00 Mechanical Ventilator 06/29/19 16:00 73 06/29/19 16:00 30 06/29/19 15:30 69 21 40 06/29/19 13:21 65 22 40 06/29/19 12:00 30 06/29/19 12:00 63 06/29/19 12:00 97.6 67 20 121/93 (102) 100 06/29/19 12:00 Mechanical Ventilator 06/29/19 11:10 60 16 50 06/29/19 08:34 61 18 50 Intake and Output 06/29/19 06/30/19 19:00 07:00 Intake Total 600 ml 660 ml Output Total 925 ml 560 ml Balance -325 ml 100 ml Free Water 110 ml IV Total 200 ml Tube Feeding 400 ml 550 ml Output Urine Total 925 ml 560 ml Height (Feet): 5 Height (Inches): 5.00 Weight (Pounds): 213 Objective Debilitated AA man unresponsive NCAT (+) trach coarse BS RR abd soft, (+) GT no edema (+) OBS, contracted, non-verbal Manolo Okeefe MD Jun 30, 2019 08:03
[2019-06-30] MEDS: levETIRAcetam 500mg/5ml Liquid GT SCH (08:06)
[2019-06-30] MEDS: Triamcinolone 0.1% oint TOPIC SCH (08:07)
--- NOTE | 2019-06-30 08:25 | Critical Care Progress Note ---
Assessment/Plan Assessment/Plan chronic respiratory failure multifocal pneumonia hypoxemia sepsis leukocytosis hyponatremia ARF trach GT severe PCM chronic encephalopathy possible colitis ? pulmonary edema PLAN vent support as is- no wean and keep on AC monitor acid base and adjust iv antibiotics and cultures reviewed monitor imaging- not improved; check today off load and monitor skin exam all care reviewed in detail monitor for seizures and adjust full code prognosis very poor close follow up of all parameters dc to subacute once all cleared difficult to stabilize impression, plan, and exam edited and reviewed in detail care discussed with public health dentist - Subjective Interval Events: still overall same doing poorly on vent care noted ROS Limited/Unobtainable: Yes Condition: unchanged EKG Rhythm: Sinus Rhythm Residuals: minimal Tube Feeding Tolerated: yes I&O: Intake and Output 06/29/19 06/30/19 19:00 07:00 Intake Total 600 ml 660 ml Output Total 925 ml 560 ml Balance -325 ml 100 ml Free Water 110 ml IV Total 200 ml Tube Feeding 400 ml 550 ml Output Urine Total 925 ml 560 ml Critical Care - Objective Last 24 Hour Vital Signs Date Time Temp Pulse Resp B/P (MAP) Pulse Ox O2 Delivery O2 Flow Rate FiO2 06/30/19 07:26 88 20 40 06/30/19 05:30 84 25 40 06/30/19 04:00 98.1 90 20 104/54 (71) 99 06/30/19 04:00 30 06/30/19 04:00 Mechanical Ventilator 06/30/19 03:36 94 06/30/19 03:30 85 26 40 06/30/19 01:24 89 22 40 06/30/19 00:00 98.1 95 19 121/69 (86) 99 06/30/19 00:00 Mechanical Ventilator 06/30/19 00:00 30 06/29/19 23:32 92 06/29/19 23:22 80 28 40 06/29/19 20:35 83 27 40 06/29/19 20:21 83 06/29/19 20:00 Mechanical Ventilator 06/29/19 20:00 30 06/29/19 20:00 98.6 81 18 110/76 (87) 99 06/29/19 19:30 92 36 40 06/29/19 17:09 71 20 40 06/29/19 16:00 97.7 68 18 118/67 (84) 97 06/29/19 16:00 Mechanical Ventilator 06/29/19 16:00 73 06/29/19 16:00 30 06/29/19 15:30 69 21 40 06/29/19 13:21 65 22 40 06/29/19 12:00 30 06/29/19 12:00 63 06/29/19 12:00 97.6 67 20 121/93 (102) 100 06/29/19 12:00 Mechanical Ventilator 06/29/19 11:10 60 16 50 06/29/19 08:34 61 18 50 Objective: WDWN trach and vent noted anasarca reduced breath sounds bilaterally with scattered rhonchi and overall same [id number] without MRG NABS nontender no HSM; GT; no distention no CC some edema nonfocal poor LOC skin exam reviewed reviewed and examined Accucheck: 248 Bakari Montanez MD Jun 30, 2019 08:25
--- NOTE | 2019-06-30 08:28 | General Progress Note ---
Assessment/Plan Problem List: (1) GIB (gastrointestinal bleeding) ICD Codes: K92.2 - Gastrointestinal hemorrhage, unspecified SNOMED: 51141823 (2) Anemia ICD Codes: D64.9 - Anemia, unspecified SNOMED: 739317216 Qualifiers: Qualified Codes: D64.9 - Anemia, unspecified (3) Hyponatremia ICD Codes: E87.1 - Hypo-osmolality and hyponatremia SNOMED: 05521041 (4) Renal insufficiency ICD Codes: N28.9 - Disorder of kidney and ureter, unspecified; R65.20 - Severe sepsis without septic shock SNOMED: 606815014, 361095116 (5) Pneumonia ICD Codes: J18.9 - Pneumonia, unspecified organism SNOMED: 790095968, 691430279 Qualifiers: Qualified Codes: J18.9 - Pneumonia, unspecified organism (6) Severe sepsis ICD Codes: A41.9 - Sepsis, unspecified organism; R65.20 - Severe sepsis without septic shock SNOMED: 15798753 (7) Decubitus skin ulcer ICD Codes: L89.90 - Pressure ulcer of unspecified site, unspecified stage SNOMED: 367159530 (8) Leukocytosis ICD Codes: D72.829 - Elevated white blood cell count, unspecified SNOMED: 006787193, 861041823 (9) Hyperglycemia ICD Codes: R73.9 - Hyperglycemia, unspecified SNOMED: 64051360 (10) Hypothermia ICD Codes: T68.XXXA - Hypothermia, initial encounter SNOMED: 011967877 Qualifiers: Qualified Codes: T68.XXXA - Hypothermia, initial encounter Status: stable, unchanged Assessment/Plan: cont current rx monitor off pressors iv abx per id monitor cxr lasix PPI rx vent support resp rx suctioning as needed try to wean fio2 monitor cxr poor prognosis d/c planning Subjective ROS Limited/Unobtainable: Yes Constitutional: Reports: malaise, weakness HEENT: Reports: no symptoms Cardiovascular: Reports: no symptoms Respiratory: Reports: shortness of breath, sputum Gastrointestinal/Abdominal: Reports: no symptoms Genitourinary: Reports: no symptoms Neurologic/Psychiatric: Reports: pre-existing deficit, seizure Endocrine: Reports: no symptoms Hematologic/Lymphatic: Reports: no symptoms Allergies: Coded Allergies: No Known Allergies (Unverified , 07/04/18) All Systems: reviewed and negative except above Subjective no events. stable on the vent. now on 40%fio2 overall improved. Objective Last 24 Hour Vital Signs Date Time Temp Pulse Resp B/P (MAP) Pulse Ox O2 Delivery O2 Flow Rate FiO2 06/30/19 07:26 88 20 40 06/30/19 05:30 84 25 40 06/30/19 04:00 98.1 90 20 104/54 (71) 99 06/30/19 04:00 30 06/30/19 04:00 Mechanical Ventilator 06/30/19 03:36 94 06/30/19 03:30 85 26 40 06/30/19 01:24 89 22 40 06/30/19 00:00 98.1 95 19 121/69 (86) 99 06/30/19 00:00 Mechanical Ventilator 06/30/19 00:00 30 06/29/19 23:32 92 06/29/19 23:22 80 28 40 06/29/19 20:35 83 27 40 06/29/19 20:21 83 06/29/19 20:00 Mechanical Ventilator 06/29/19 20:00 30 06/29/19 20:00 98.6 81 18 110/76 (87) 99 06/29/19 19:30 92 36 40 06/29/19 17:09 71 20 40 06/29/19 16:00 97.7 68 18 118/67 (84) 97 06/29/19 16:00 Mechanical Ventilator 06/29/19 16:00 73 06/29/19 16:00 30 06/29/19 15:30 69 21 40 06/29/19 13:21 65 22 40 06/29/19 12:00 30 06/29/19 12:00 63 06/29/19 12:00 97.6 67 20 121/93 (102) 100 06/29/19 12:00 Mechanical Ventilator 06/29/19 11:10 60 16 50 06/29/19 08:34 61 18 50 Intake and Output 06/29/19 06/30/19 19:00 07:00 Intake Total 600 ml 660 ml Output Total 925 ml 560 ml Balance -325 ml 100 ml Free Water 110 ml IV Total 200 ml Tube Feeding 400 ml 550 ml Output Urine Total 925 ml 560 ml Height (Feet): 5 Height (Inches): 5.00 Weight (Pounds): 213 Objective General Appearance: WD/WN, lethargic Neck: supple Cardiovascular: regular rhythm Respiratory/Chest: chest wall non-tender, lungs clear, normal breath sounds, no respiratory distress, no accessory muscle use Abdomen: normal bowel sounds, non tender, soft, no organomegaly, no mass Edema: mild edema Neurologic: disoriented, unresponsive, aphasia Chano Galeana MD Jun 30, 2019 08:28
[2019-06-30 10:16] LABS: BASOPHILS % (AUTO) 1.1 % (0.0-2.0); EOSINOPHILS % (AUTO) 4.6 % (0.0-3.0); HEMOGLOBIN 8.6 G/DL (14.2-18.0); LYMPHOCYTES % (AUTO) 29.5 % (20.0-45.0); MEAN CORPUSCULAR VOLUME 87 FL (80-99); MONOCYTES % (AUTO) 6.8 % (1.0-10.0); NEUTROPHILS % (AUTO) 58.1 % (45.0-75.0); PLATELET COUNT 290 K/UL (150-450); RED CELL DISTRIBUTION WIDTH 15.7 % (11.6-14.8); WHITE BLOOD COUNT 7.6 K/UL (4.8-10.8)
[2019-06-30 10:23] LABS: ALANINE AMINOTRANSFERASE 19 U/L (12-78); ALBUMIN 1.5 G/DL (3.4-5.0); ALBUMIN/GLOBULIN RATIO 0.3 (1.0-2.7); ALKALINE PHOSPHATASE 84 U/L (46-116); ANION GAP 2 mmol/L (5-15); ASPARTATE AMINO TRANSFERASE 17 U/L (15-37); BILIRUBIN,TOTAL 0.4 MG/DL (0.2-1.0); BLOOD UREA NITROGEN 10 mg/dL (7-18); CALCIUM 7.9 MG/DL (8.5-10.1); CARBON DIOXIDE 35 MMOL/L (21-32); CHLORIDE 102 MMOL/L (98-107); CREATININE 0.7 MG/DL (0.55-1.30); SODIUM 139 MMOL/L (136-145)
--- NOTE | 2019-06-30 11:05 | Infectious Diseases Prog Note ---
"Assessment/Plan Assessment/Plan antibiotics : none A 1. pseudomonas | acenitobacter pneumonia 2. shock resolved 3. cirrhosis 4. respiratory failure 5. seizures 6. leucocytosis improving P 1. start inhaled colistin 2. will follow up cultures Subjective ROS Limited/Unobtainable: Yes Allergies: Coded Allergies: No Known Allergies (Unverified , 07/04/18) Objective Vital Signs Last 24 Hour Vital Signs Date Time Temp Pulse Resp B/P (MAP) Pulse Ox O2 Delivery O2 Flow Rate FiO2 06/30/19 10:54 87 19 40 06/30/19 09:01 86 19 40 06/30/19 08:00 30 06/30/19 08:00 Mechanical Ventilator 06/30/19 08:00 97.5 88 20 114/74 (87) 95 06/30/19 07:26 88 20 40 06/30/19 05:30 84 25 40 06/30/19 04:00 98.1 90 20 104/54 (71) 99 06/30/19 04:00 30 06/30/19 04:00 Mechanical Ventilator 06/30/19 03:36 94 06/30/19 03:30 85 26 40 06/30/19 01:24 89 22 40 06/30/19 00:00 98.1 95 19 121/69 (86) 99 06/30/19 00:00 Mechanical Ventilator 06/30/19 00:00 30 06/29/19 23:32 92 06/29/19 23:22 80 28 40 06/29/19 20:35 83 27 40 06/29/19 20:21 83 06/29/19 20:00 Mechanical Ventilator 06/29/19 20:00 30 06/29/19 20:00 98.6 81 18 110/76 (87) 99 06/29/19 19:30 92 36 40 06/29/19 17:09 71 20 40 06/29/19 16:00 97.7 68 18 118/67 (84) 97 06/29/19 16:00 Mechanical Ventilator 06/29/19 16:00 73 06/29/19 16:00 30 06/29/19 15:30 69 21 40 06/29/19 13:21 65 22 40 06/29/19 12:00 30 06/29/19 12:00 63 06/29/19 12:00 97.6 67 20 121/93 (102) 100 06/29/19 12:00 Mechanical Ventilator 06/29/19 11:10 60 16 50 Height (Feet): 5 Height (Inches): 5.00 Weight (Pounds): 213 HEENT: status post trach Respiratory/Chest: lungs clear Cardiovascular: normal rate, regular rhythm, no gallop/murmur Abdomen: soft, non tender, other - GT Extremities: other - + edema, left arm PICC Laboratory Tests Test 06/30/19 09:40 White Blood Count 7.6 K/UL (4.8-10.8) Red Blood Count 3.10 M/UL (4.70-6.10) L Hemoglobin 8.6 G/DL (14.2-18.0) L Hematocrit 27.0 % (42.0-52.0) L Mean Corpuscular Volume 87 FL (80-99) Mean Corpuscular Hemoglobin 27.9 PG (27.0-31.0) Mean Corpuscular Hemoglobin Concent 32.0 G/DL (32.0-36.0) Red Cell Distribution Width 15.7 % (11.6-14.8) H Platelet Count 290 K/UL (150-450) Mean Platelet Volume 6.7 FL (6.5-10.1) Neutrophils (%) (Auto) 58.1 % (45.0-75.0) Lymphocytes (%) (Auto) 29.5 % (20.0-45.0) Monocytes (%) (Auto) 6.8 % (1.0-10.0) Eosinophils (%) (Auto) 4.6 % (0.0-3.0) H Basophils (%) (Auto) 1.1 % (0.0-2.0) Sodium Level 139 MMOL/L (136-145) Potassium Level 4.0 MMOL/L (3.5-5.1) Chloride Level 102 MMOL/L (98-107) Carbon Dioxide Level 35 MMOL/L (21-32) H Anion Gap 2 mmol/L (5-15) L Blood Urea Nitrogen 10 mg/dL (7-18) Creatinine 0.7 MG/DL (0.55-1.30) Estimat Glomerular Filtration Rate mL/min (>60) Glucose Level 252 MG/DL (74-106) H Calcium Level 7.9 MG/DL (8.5-10.1) L Total Bilirubin 0.4 MG/DL (0.2-1.0) Aspartate Amino Transf (AST/SGOT) 17 U/L (15-37) Alanine Aminotransferase (ALT/SGPT) 19 U/L (12-78) Alkaline Phosphatase 84 U/L (46-116) Total Protein 7.3 G/DL (6.4-8.2) Albumin 1.5 G/DL (3.4-5.0) L Globulin 5.8 g/dL Albumin/Globulin Ratio 0.3 (1.0-2.7) L Current Medications Medications (Trade) Dose Ordered Sig/Derrick Route PRN Reason Start Time Stop Time Status Last Admin Dose Admin Acetaminophen (Tylenol) 650 mg Q6H PRN GT MILD PAIN/TEMP > 100.5 06/28/19 21:15 07/28/19 21:14 06/28/19 21:15 Chlorhexidine Gluconate (Gwendolyn-Hex 2%) 1 applic DAILY@2000 TOPIC 06/25/19 20:00 07/25/19 19:59 06/29/19 20:02 Dextrose (Dextrose 50%) 25 ml Q30M PRN IV Hypoglycemia 06/22/19 17:30 07/17/19 07:59 Dextrose (Dextrose 50%) 50 ml Q30M PRN IV Hypoglycemia 06/22/19 17:30 07/17/19 07:59 Insulin Aspart (NovoLOG) Q6HR SUBQ 06/23/19 12:00 07/22/19 17:44 06/30/19 05:33 Lansoprazole (Prevacid) 30 mg DAILY GT 06/23/19 09:00 07/23/19 08:59 06/30/19 08:06 Levetiracetam (Keppra) 1,000 mg Q12HR GT 06/22/19 21:00 07/19/19 20:59 06/30/19 08:06 Triamcinolone (Kenalog) 1 applic EVERY 12 HOURS TOPIC 06/25/19 15:00 07/25/19 14:59 06/30/19 08:07 Rosalinda Guerrero MD Jun 30, 2019 11:05"
--- NOTE | 2019-06-30 11:14 | Surgery Progress Note ---
Surgery Progress Note Subjective Additional Comments Afebrile, hemodynamically stable, labs improved. No acute events. Exam stable Objective Last 24 Hour Vital Signs Date Time Temp Pulse Resp B/P (MAP) Pulse Ox O2 Delivery O2 Flow Rate FiO2 06/30/19 10:54 87 19 40 06/30/19 09:01 86 19 40 06/30/19 08:00 30 06/30/19 08:00 Mechanical Ventilator 06/30/19 08:00 97.5 88 20 114/74 (87) 95 06/30/19 07:26 88 20 40 06/30/19 05:30 84 25 40 06/30/19 04:00 98.1 90 20 104/54 (71) 99 06/30/19 04:00 30 06/30/19 04:00 Mechanical Ventilator 06/30/19 03:36 94 06/30/19 03:30 85 26 40 06/30/19 01:24 89 22 40 06/30/19 00:00 98.1 95 19 121/69 (86) 99 06/30/19 00:00 Mechanical Ventilator 06/30/19 00:00 30 06/29/19 23:32 92 06/29/19 23:22 80 28 40 06/29/19 20:35 83 27 40 06/29/19 20:21 83 06/29/19 20:00 Mechanical Ventilator 06/29/19 20:00 30 06/29/19 20:00 98.6 81 18 110/76 (87) 99 06/29/19 19:30 92 36 40 06/29/19 17:09 71 20 40 06/29/19 16:00 97.7 68 18 118/67 (84) 97 06/29/19 16:00 Mechanical Ventilator 06/29/19 16:00 73 06/29/19 16:00 30 06/29/19 15:30 69 21 40 06/29/19 13:21 65 22 40 06/29/19 12:00 30 06/29/19 12:00 63 06/29/19 12:00 97.6 67 20 121/93 (102) 100 06/29/19 12:00 Mechanical Ventilator I&O Intake and Output 06/29/19 06/30/19 19:00 07:00 Intake Total 600 ml 660 ml Output Total 925 ml 560 ml Balance -325 ml 100 ml Free Water 110 ml IV Total 200 ml Tube Feeding 400 ml 550 ml Output Urine Total 925 ml 560 ml Dressing: saturated Wound: clean Cardiovascular: RSR Respiratory: clear, decreased breath sounds Abdomen: soft, present bowel sounds, non-distended Extremities: no tenderness, no cyanosis, other Laboratory Tests Test 06/30/19 09:40 White Blood Count 7.6 K/UL (4.8-10.8) Red Blood Count 3.10 M/UL (4.70-6.10) L Hemoglobin 8.6 G/DL (14.2-18.0) L Hematocrit 27.0 % (42.0-52.0) L Mean Corpuscular Volume 87 FL (80-99) Mean Corpuscular Hemoglobin 27.9 PG (27.0-31.0) Mean Corpuscular Hemoglobin Concent 32.0 G/DL (32.0-36.0) Red Cell Distribution Width 15.7 % (11.6-14.8) H Platelet Count 290 K/UL (150-450) Mean Platelet Volume 6.7 FL (6.5-10.1) Neutrophils (%) (Auto) 58.1 % (45.0-75.0) Lymphocytes (%) (Auto) 29.5 % (20.0-45.0) Monocytes (%) (Auto) 6.8 % (1.0-10.0) Eosinophils (%) (Auto) 4.6 % (0.0-3.0) H Basophils (%) (Auto) 1.1 % (0.0-2.0) Sodium Level 139 MMOL/L (136-145) Potassium Level 4.0 MMOL/L (3.5-5.1) Chloride Level 102 MMOL/L (98-107) Carbon Dioxide Level 35 MMOL/L (21-32) H Anion Gap 2 mmol/L (5-15) L Blood Urea Nitrogen 10 mg/dL (7-18) Creatinine 0.7 MG/DL (0.55-1.30) Estimat Glomerular Filtration Rate mL/min (>60) Glucose Level 252 MG/DL (74-106) H Calcium Level 7.9 MG/DL (8.5-10.1) L Total Bilirubin 0.4 MG/DL (0.2-1.0) Aspartate Amino Transf (AST/SGOT) 17 U/L (15-37) Alanine Aminotransferase (ALT/SGPT) 19 U/L (12-78) Alkaline Phosphatase 84 U/L (46-116) Total Protein 7.3 G/DL (6.4-8.2) Albumin 1.5 G/DL (3.4-5.0) L Globulin 5.8 g/dL Albumin/Globulin Ratio 0.3 (1.0-2.7) L Plan Problems: (1) Leukocytosis (2) Decubitus skin ulcer Assessment & Plan: Pt presented on admission with multiple pressure injuries. Resolving pressure injury posterior neck under collar of trach. Base of wound has mostly pink epithelial with scattered small partial thickness wounds (L)2cm x (W)1.6cm. Tracheal stoma noted to have denuded area R side of stoma.. Resolving full thickness sacral pressure injury L sacrum (L)2.5cm x (W)1cm x (D) 0.2cm.[place] granulation at base of wound . Inferior but in close proximity to L sacral wound ,pt noted to have darker skin tone with scattered areas that are fluctuant and partially opened with small amt of sanguineous exudate noted (L) 9cm x (W)11.5cm. Resolving pressure injury noted to base of scrotum . Base of wound pink and dry (L)1cm x (W)0.8cm. Unstageable pressure injury noted to R heel extending into plantar aspect of R heel.At plantar aspect of heel soft necrosis noted that is oozing small amt brown purulent exudate(L)3cm x (W)3.5cm. Surrounding the area of necrosis, wound is black with fluctuance and marginal erythema along edges. Wound is malodorous.(L)8cm x (W)9.5cm. L heel is boggy with non-blanching erythema. Tx.Plan: Apply Cavilon Skin Barrier to posterior neck. Cover with Optifoam drsg. Change every 3 days and prn. Apply Moisture Barrier Paste to sacrum. Cover with Optifoam drsg. Change every 3days and prn. Apply Moisture Barrier Paste to Scrotum with each incontinence care. Apply Betadine to R heel . Cover with ABD pad and wrap with kerlix Daily and prn. Apply Cavilon Skin Barrier to R heel. Cover with Optifoam drsg. Change every 7 days and prn. APM/ALRISSA Mattress overlay. Reposition at least every 2hours or as tolerated. Off-load heels with pillow. (3) Severe sepsis Assessment & Plan: Leukocytosis, lactic acidosis, hyperkalemia, hyponatremia. - improved Severe sepsis - recovering IV antibiotics as per infectious disease Trend labs US abd noted picc placed and midline removed given dislodged Wound care as above Discharge planning We will follow with recommendations Thank you for this consultation Abdoul Lucas Jun 30, 2019 11:14
--- NOTE | 2019-06-30 11:49 | Diagnostic Imaging Report ---
Indication: Shortness of breath Technique: One view of the chest Comparison: 06/28/2019 Findings: Extensive and diffuse interstitial and airspace disease persists, may be slightly improved on the left, unchanged on the right. Tracheostomy remains. Left arm PICC again demonstrated Impression: Persistent and extensive diffuse interstitial disease, perhaps slightly improved on the left over 2 days
[2019-06-30] MEDS ORDERED: NS 275ml ONE (13:59)
[2019-06-30] MEDS ORDERED: Tubing IV Secondary IV ONE (13:59)
[2019-06-30] MEDS ORDERED: Colistin for inhalation INH SCH (22:00)
--- NOTE | 2019-07-01 10:12 | Discharge Summary ---
Discharge Summary Discharge Summary _ DATE OF ADMISSION: 06/16/2019 DATE OF DISCHARGE: 06/30/2019 DISCHARGED BY: Dr. Galeana REASON FOR ADMISSION: [] 74 years old male, resident of alf facility, with past medical history of hypertension, seizure disorder, chronic respiratory failure, ventilator dependent , tracheostomy status, diabetes mellitus, heart failure, was brought from the alf facility for evaluation. Patient was noted to be hypothermic and hypotensive. Patient nonverbal and obtunded, and was unable to provide any history. Vital signs revealed hypotension with blood pressure 80/42 and hypothermia. Laboratory work-up revealed leukocytosis WBC 16.1, hemoglobin 7.4, hematocrit 22.7, platelet count 75. Sodium 109, potassium 6.2. BUN 67, creatinine 1.4. Glucose 284. Lactic acid 1.3. AST 41, ALT 35, alkaline phosphatase 171. Troponin negative. CK 90. EKG revealed sinus rhythm, No acute ischemic changes. Albumin 1.7. Urinalysis revealed +1 leukocyte esterase, no pyuria and few bacteria. Chest x-ray demonstrated fairly extensive bilateral mid and upper lung infiltrates. Retrocardiac consolidation as well. Patient started on septic protocol with fluid resuscitation and empiric antibiotic after being pancultured. Hyperkalemia was treated. Warming fluids and bear hugger applied. Blood pressure did not respond to fluid resuscitation. Central line was placed by emergency department physician. Patient started on Levophed drip. Patient subsequently admitted to ICU for further management CONSULTANTS: heavy coil winder Dr. Madison pulmonary Dr. Montanez ID specialist Dr. Guerrero GI specialist Dr. Okeefe layboy tender Dr. Deras [facility] COURSE: Patient admitted to ICU. Warming measures continued. Patient was on aggressive fluid resuscitation. Patient started on empiric antibiotic as per ID specialist recommendation. Patient was on pressor/ Levophed . Hemodynamic status was closely monitored with goal to keep mean arterial blood pressure above 65. Lime Burner closely followed. Patient was able to be weaned from pressors soon. Ventilator support and tracheostomy care provided. Baseline ABG was stable on current settings. Bronchodilator therapy provided as needed. Patient was suctioned as needed . Sputum culture revealed Proteus and Serratia. Blood cultures were negative. Repeated sputum culture revealed Pseudomonas and Acinetobacter MDR . Antibiotic regimen optimized as per ID specialist recommendation , based on culture. After completing IV antibiotics, patient was on inhaled Colistin. Follow-up chest x-ray revealed some improvement in bilateral infiltrates. Echocardiogram revealed preserved ejection fraction 55 to 60% with no evidence of wall motion abnormalities. Mild left ventricular hypertrophy. Evidence of pleural effusion. Right ventricular systolic pressure of 20. When hemodynamic status stabilized, IV fluids rate decreased to maintenance dose and then stopped. Patient received spot diuretic. Congestive heart failure improved. Chest x-ray showed some improvement , and pro BNP from 7367 down to 3189. GI specialist followed. Patient noted to have a dark stools , indicative of probable gastrointestinal bleeding. Stool for occult blood x1 was positive. Patient also had thrombocytopenia. Patient started on Sandostatin drip. Proton pump inhibitor was provided. Tube feedings was hold. Patient subsequently undergone upper endoscopy with biopsy, which revealed nonerosive erythematous mid body gastritis , status psot biopsy. No evidence of esophageal varices. At the time of this dictation biopsy results still pending. Tube feeding resumed. Tube feeding formula with goal rate and protein supplements implemented in plan of care as per endoscopy registered nurse recommendation. Aspiration/reflux precautions were maintained. Patient was able to tolerate tube feeding. Hemoglobin and hematocrit were closely monitored with goal to keep hemoglobin above 7. Prior to discharge hemoglobin 8.6 , hematocrit 27. Platelet count stabilized. Hepatitis panel was positive for hepatitis C. Abdominal ultrasound revealed no evidence of gallstones. Mildly ectatic common bile duct. Bilateral pleural effusion. Liver demonstrated normal echogenicity , no focal abnormality. Portal vein and hepatic veins patent. Municipal [employer] Judge closely follow. Renal parameters and electrolytes were closely monitored, electrolytes corrected as needed, and nephrotoxins were avoided. Hyponatremia work-up was initiated. Patient was continued initially on IV fluids. IV fluids rate later decreased and further IV fluids discontinued . Prior to discharge sodium 139. BUN 10 and creatinine 0.7. Seizure precaution maintained. Keppra continued. No evidence of seizure activity while in the hospital. Blood sugar was managed with sliding scale of insulin. EEG showed moderate to severe encephalopathy . Patient presented with multiply pressure injury , present on admission. Wound care provided as per surgeon recommendation. Continue with recommended wound care at the facility. Supportive care provided. Bowel regimen instituted. Pain management addressed as needed. Patient clinically stabilized and was ready for transfer back to alf facility for continuation of care FINAL DIAGNOSES: Sepsis with septic shock -resolved Pneumonia , healthcare acquired Chronic respiratory failure, ventilator dependent with , tracheostomy status Hypothermia -resolved Acute kidney injury- resolved Encephalopathy, moderate to severe Hyponatremia-resolved Stool OB positive, probably GI bleeding Status post EGD with gastritis Hepatitis C Cirrhosis Seizure disorder Anemia Thrombocytopenia-resolved Acute on chronic diastolic congestive heart failure -improved Dysphagia, status post PEG Anoxic encephalopathy Bedbound ,contracted Severe protein calorie malnutrition Multiply pressure injury, present on admission DISCHARGE MEDICATIONS: See Medication Reconciliation list. DISCHARGE INSTRUCTIONS: Patient was discharged to the alf facility. Follow up with medical doctor at the facility. I have been assigned to dictate discharge summary for this account. I was not involved in the patient's management. Sanjuana Rdz NP Jul 01, 2019 10:12
== END 2019-06-30 14:00 | DRG 870 ==
LOC: EDBD 16:42 → EDBEDREQ 16:57 → EMR 17:13 → ICU 17:17 → EDBEDREQ 18:27 → 2W 06-22 16:50
PROC: 5A1955Z Respiratory Ventilation, Greater than 96 Consecutive Hours (ICD-10-PCS; principal; 2019-06-16)
PROC: 05HM33Z Insertion of Infusion Device into Right Internal Jugular Vein, Percutaneous Approach (ICD-10-PCS; principal; 2019-06-16)
PROC: 0DD68ZX Extraction of Stomach, Via Natural or Artificial Opening Endoscopic, Diagnostic (ICD-10-PCS; 2019-06-26)
PROC: B548ZZA Ultrasonography of Superior Vena Cava, Guidance (ICD-10-PCS; 2019-06-26)
PROC: 02HV33Z Insertion of Infusion Device into Superior Vena Cava, Percutaneous Approach (ICD-10-PCS; 2019-06-26)
PROC: 05PYX3Z Removal of Infusion Device from Upper Vein, External Approach (ICD-10-PCS; 2019-06-26)
DX: A41.9 Sepsis, unspecified organism (principal); E43 Unspecified severe protein-calorie malnutrition; R65.21 Severe sepsis with septic shock; J15.1 Pneumonia due to Pseudomonas; G93.41 Metabolic encephalopathy; I50.33 Acute on chronic diastolic (congestive) heart failure; E87.1 Hypo-osmolality and hyponatremia; J96.11 Chronic respiratory failure with hypoxia; E87.2 Acidosis; G93.1 Anoxic brain damage, not elsewhere classified; J44.0 Chronic obstructive pulmonary disease with (acute) lower respiratory infection; N17.9 Acute kidney failure, unspecified; K92.1 Melena; Z99.11 Dependence on respirator [ventilator] status; E86.0 Dehydration; Z93.0 Tracheostomy status; Z93.1 Gastrostomy status; K74.60 Unspecified cirrhosis of liver; G40.909 Epilepsy, unspecified, not intractable, without status epilepticus; Z86.73 Personal history of transient ischemic attack (TIA), and cerebral infarction without residual deficits; D64.9 Anemia, unspecified; R68.0 Hypothermia, not associated with low environmental temperature; E87.5 Hyperkalemia; I11.0 Hypertensive heart disease with heart failure; D69.6 Thrombocytopenia, unspecified; L89.159 Pressure ulcer of sacral region, unspecified stage; L89.619 Pressure ulcer of right heel, unspecified stage; Z68.35 Body mass index [BMI] 35.0-35.9, adult; K29.70 Gastritis, unspecified, without bleeding; E11.65 Type 2 diabetes mellitus with hyperglycemia; R13.10 Dysphagia, unspecified; Z74.01 Bed confinement status; E83.42 Hypomagnesemia; I51.3 Intracardiac thrombosis, not elsewhere classified
CPT/HCPCS: 36415; 36569; 36600; 71045; 74018; 76700; 76937; 80048; 80053; 80202; 81003; 82140; 82150; 82270; 82533; 82550; 82553; 82803; 82962; 83605; 83690; 83735; 83880; 83935; 84132; 84443; 84484; 85007; 85025; 85610; 85651; 85730; 86140; 86705; 86709; 86713; 86738; 86803; 86850; 86900; 86901; 86920; 87040; 87070; 87081; 87181; 87205; 87340; 93005; 93306; 94002; 94003; 94150; 94664; 95819; 96361; 96365; 96368; 96375; 99291; J1165; J1815; J8499

== ENCOUNTER 2020-07-28 12:02 | Inpatient (IN) | payer MEDICARE, MEDICAID ==
[~2020-07-28] VITALS: Ht 180.3 cm; Wt 81.6 kg
[2020-07-28] VITALS (11 sets, daily range): BP systolic 91–127; BP diastolic 51–88
[~2020-07-28 12:02] MED LIST changes: +DECLOMYCIN150 MG GT; +FLORASTOR250 MG GT; +JANUVIA25 MG GT; +LISINOPRIL20 MG GT
--- NOTE | 2020-07-28 12:05 | NUR ---
ED Nurse Note: Pt KATIA LEDESMA ALS unit from [facility] d/t oxygen desaturation to 90% on trach/vent. Pt 92% on [address] Montanez reporting abnormal lung sounds. Pt's AOx0, non-verbal, on trach, GT noted on L upper abdomen, assessed with distention; pt was placed on bed, RT at bedside, ABG taken, initial skin assessment performed, skin intact noted. Rectal temp taken with 97F. Will continue to monitor pt.
--- NOTE | 2020-07-28 12:10 | NUR ---
ED Nurse Note: VENT SETTINGS: ACVC 16 TV 500 FIO2 100% PEEP 5 PORTEX 8
--- NOTE | 2020-07-28 12:23 | Emergency Room Report ---
History of Present Illness General Chief Complaint: Dyspnea/Respdistress Source: EMS Present Illness HPI 75-year-old male history of chronic respiratory failure with tracheostomy on chronic ventilator, NG tube, alert and oriented x0 and unresponsive at his baseline, full code, here with increased oxygen requirement. According to senior living report the patient appeared short of breath and was requiring incre ased oxygen flow on his ventilator. Patient's doctor examined the patient said that he had new abnormal breath sounds. Patient is alert and oriented x0 and unresponsive at his baseline and unable to provide any further history. Allergies: Coded Allergies: No Known Allergies (Unverified , 07/04/18) COVID-19 Screening Contact w/high risk pt: No Experienced COVID-19 symptoms?: Yes COVID-19 Testing performed HAND SAMPLE MAKER: Yes COVID-19 Screening: Negative COVID-19 COVID-19 Testing Source: 07/21 Nursing Documentation-[facility] Past Medical History: No History, Except For Hx Hypertension: Yes Hx COPD: Yes Hx Diabetes: Yes Hx Cancer: No Hx Neurological Problems: Yes - muscle weakness Hx Dementia: Yes Hx Encephalitis: Yes Hx Seizures: Yes Hx Epilepsy: Yes Review of Systems All Other Systems: negative except mentioned in HPI Physical Exam Vital Signs Date Time Temp Pulse Resp B/P (MAP) Pulse Ox O2 Delivery O2 Flow Rate FiO2 07/28/20 11:55 62 20 109/72 (84) 96 Trach Collar 15.0 Sp02 EP Interpretation: reviewed General Appearance: other - Appears chronically ill Head: normocephalic, atraumatic Eyes: bilateral eye normal inspection, bilateral eye PERRL ENT: no angioedema, other - Tracheostomy in place without any surrounding erythema or induration Neck: supple/symm/no masses Respiratory: other - Mechanical breath sounds and rales in all lung murray Cardiovascular #1: regular rate, rhythm, no edema Cardiovascular #2: 2+ carotid (R), 2+ carotid (L), 2+ radial (R), 2+ radial (L), 2+ dorsalis pedis (R), 2+ dorsalis pedis (L) Gastrointestinal: normal bowel sounds, no guarding, other - Diffusely distended abdomen. G-tube in place without any surrounding erythema or induration or drainage Rectal: deferred Genitourinary: normal inspection, no CVA tenderness Musculoskeletal: other - Diffuse contractures. Nonmobile at baseline Neurologic: other - Unresponsive, rhythmic facial drooping at his baseline, wandering eye movements. Does not respond to pain Psychiatric: other - Alert and oriented x0 and unresponsive at baseline Medical Decision Making Diagnostic Impression: Primary Impression: Pneumonia Additional Impressions: Sepsis Free intraperitoneal air Perforated abdominal viscus ER Course Laboratory Tests Test 07/28/20 12:00 07/28/20 12:48 07/28/20 12:50 White Blood Count 12.0 K/UL (4.8-10.8) H Red Blood Count 3.36 M/UL (4.70-6.10) L Hemoglobin 9.0 G/DL (14.2-18.0) L Hematocrit 29.8 % (42.0-52.0) L Mean Corpuscular Volume 89 FL (80-99) Mean Corpuscular Hemoglobin 26.9 PG (27.0-31.0) L Mean Corpuscular Hemoglobin Concent 30.3 G/DL (32.0-36.0) L Red Cell Distribution Width 19.8 % (11.6-14.8) H Platelet Count 203 K/UL (150-450) Mean Platelet Volume 10.0 FL (6.5-10.1) Neutrophils (%) (Auto) 74.5 % (45.0-75.0) Lymphocytes (%) (Auto) 15.4 % (20.0-45.0) L Monocytes (%) (Auto) 8.0 % (1.0-10.0) Eosinophils (%) (Auto) 1.8 % (0.0-3.0) Basophils (%) (Auto) 0.4 % (0.0-2.0) Arterial Blood pH 7.412 (7.350-7.450) Arterial Blood Partial Pressure CO2 41.7 mmHg (35.0-45.0) Arterial Blood Partial Pressure O2 115.2 mmHg (75.0-100.0) H Arterial Blood HCO3 26.0 mmol/L (22.0-26.0) Arterial Blood Oxygen Saturation 98.7 % (95-100) Arterial Blood Base Excess 1.2 (-2-2) Balta Test Positive D-Dimer 1.88 mg/L FEU (0.00-0.49) H Urine Color Pale yellow Urine Appearance Clear Urine pH 5 (4.5-8.0) Urine Specific [place] 1.010 (1.005-1.035) Urine Protein Negative (NEGATIVE) Urine Glucose (UA) Negative (NEGATIVE) Urine Ketones Negative (NEGATIVE) Urine Blood Negative (NEGATIVE) Urine Nitrite Negative (NEGATIVE) Urine Bilirubin Negative (NEGATIVE) Urine Urobilinogen Normal MG/DL (0.0-1.0) Urine Leukocyte Esterase 1+ (NEGATIVE) H Urine RBC 0 /HPF (0 - 0) Urine WBC 10-15 /HPF (0 - 0) H Urine Squamous Epithelial Cells None /LPF (NONE/OCC) Urine Bacteria Few /HPF (NONE) Sodium Level 123 MMOL/L (136-145) L Potassium Level 5.1 MMOL/L (3.5-5.1) Chloride Level 90 MMOL/L (98-107) L Carbon Dioxide Level 27 MMOL/L (21-32) Anion Gap 6 mmol/L (5-15) Blood Urea Nitrogen 37 mg/dL (7-18) H Creatinine 1.3 MG/DL (0.55-1.30) Estimated Glomerular Filtration Rate > 60 mL/min (>60) Glucose Level 134 MG/DL (74-106) H Lactic Acid Level 2.00 mmol/L (0.4-2.0) Calcium Level 9.3 MG/DL (8.5-10.1) Magnesium Level 2.6 MG/DL (1.8-2.4) H Ferritin 143 NG/ML (8-388) Total Bilirubin 0.3 MG/DL (0.2-1.0) Aspartate Amino Transferase (AST) 25 U/L (15-37) Alanine Aminotransferase (ALT) 24 U/L (12-78) Alkaline Phosphatase 134 U/L (46-116) H Lactate Dehydrogenase 340 U/L (81-234) H Total Creatine Kinase 81 U/L (26-308) Creatine Kinase MB 1.6 NG/ML (0.0-3.6) Creatine Kinase MB Relative Index 1.9 Troponin I 0.000 ng/mL (0.000-0.056) C-Reactive Protein, Quantitative 39.2 mg/dL (0.00-0.90) H Pro-B-Type Natriuretic Peptide 1294 pg/mL (0-125) H Total Protein 9.3 G/DL (6.4-8.2) H Albumin 2.0 G/DL (3.4-5.0) L Globulin 7.3 g/dL Albumin/Globulin Ratio 0.3 (1.0-2.7) L Microbiology Date/Time Source Procedure Growth Status 07/28/20 12:50 Nasopharynx SARS-CoV-2 RdRp Gene Assay - Final Complete 07/28/20 12:50 Nasal Nares - Final Complete 07/28/20 12:50 Nasal Nares - Final Complete Chest x-ray: Diffuse pulmonary infiltrates. Free air under the right hemidiaphragm. No bony abnormalities EKG: NSR, intervals WNL. No ectopy. Rate 61 bpm. T wave inversions in lead aVL Rhythm strip: patient monitored for arrhythmias - no malignant dysrhythmias, runs of PVCs, nor pauses noted Total critical care time: Approximately 45 minutes Due to a high probability of clinically significant, life threatening de terioration, the patient required the highest level of preparedness to intervene emergently and I personally spent this critical care time directly and personally managing the patient. This critical care time included obtaining a history, examining the patient, pulse oximetry, ordering and reviewing studies, ordering treatments, evaluating response to treatment and updating management plan as needed, frequent reassessment and discussion with other providers as well as arranging for ultimate disposition. This critical to care time was performed to assess and manage the high probability of life-threatening deterioration that could result in multiorgan failure. This critical care time is separate from the separately billable procedures and treating other patients. 75-year-old male alert and oriented x0 baseline and unresponsive at baseline here with increased oxygen requirement and distended abdomen. Chest x-ray revealed diffuse pulmonary infiltrates and free air under the diaphragm. The patient had normal vital signs in the emergency department on the ventilator. I spoke with the patient's primary provider and I spoke with Dr. Lucas who will follow up CT results. Patient was given vancomycin and Zosyn. Blood cultures drawn. Given a 30 cc/kg fluid bolus. Patient will go to the intensive care unit. Signed out to oncoming physician Dr. Martin. Last Vital Signs Date Time Temp Pulse Resp B/P (MAP) Pulse Ox O2 Delivery O2 Flow Rate FiO2 07/28/20 11:55 62 20 109/72 (84) 96 Trach Collar 15.0 Rik Delgado M.D. Jul 28, 2020 12:23
--- NOTE | 2020-07-28 12:51 | NUR ---
ED Nurse Note: x-ray at bedside done.
[2020-07-28 13:01] LABS: BASOPHILS % (AUTO) 0.4 % (0.0-2.0); EOSINOPHILS % (AUTO) 1.8 % (0.0-3.0); HEMATOCRIT 29.8 % (42.0-52.0); LYMPHOCYTES % (AUTO) 15.4 % (20.0-45.0); MEAN CORPUSCULAR VOLUME 89 FL (80-99); NEUTROPHILS % (AUTO) 74.5 % (45.0-75.0); PLATELET COUNT 203 K/UL (150-450); RED BLOOD COUNT 3.36 M/UL (4.70-6.10); RED CELL DISTRIBUTION WIDTH 19.8 % (11.6-14.8)
[2020-07-28 13:03] LABS: APPEARANCE,URINE CLEAR; BILIRUBIN, URINE NEGATIVE (NEGATIVE); COLOR,URINE PALE YELLOW; GLUCOSE, URINE (UA) NEGATIVE (NEGATIVE); KETONES,URINE NEGATIVE (NEGATIVE); LEUKOCYTE ESTERASE ,URINE 1+ (NEGATIVE); NITRITE,URINE NEGATIVE (NEGATIVE); PH,URINE 5 (4.5-8.0); PROTEIN,URINE NEGATIVE (NEGATIVE); UROBILINOGEN,URINE NORMAL MG/DL (0.0-1.0)
[2020-07-28 13:12] LABS: ANION GAP 6 mmol/L (5-15); BLOOD UREA NITROGEN 37 mg/dL (7-18); CALCIUM 9.3 MG/DL (8.5-10.1); CARBON DIOXIDE 27 MMOL/L (21-32); CHLORIDE 90 MMOL/L (98-107); CREATININE 1.3 MG/DL (0.55-1.30); POTASSIUM 5.1 MMOL/L (3.5-5.1); SODIUM 123 MMOL/L (136-145)
[2020-07-28 13:27] LABS: ALANINE AMINOTRANSFERASE 24 U/L (12-78); ALBUMIN/GLOBULIN RATIO 0.3 (1.0-2.7); ALKALINE PHOSPHATASE 134 U/L (46-116); ASPARTATE AMINO TRANSFERASE 25 U/L (15-37); BILIRUBIN,TOTAL 0.3 MG/DL (0.2-1.0); CKMB 1.6 NG/ML (0.0-3.6); CREATINE KINASE 81 U/L (26-308)
[2020-07-28] MEDS ORDERED: Piperacillin/Tazobactam 3.375 GM in NS 110 ML IVPB ONE (14:00)
[2020-07-28] MEDS ORDERED: Vancomycin 1 GM in NS 275 ML IVPB ONE (14:00)
[2020-07-28] MEDS ORDERED: Omnipaque-300 100ml vial INJ PRN (14:00)
--- NOTE | 2020-07-28 15:39 | Consultation ---
History of Present Illness General Date patient seen: Jul 28, 2020 Reason for Hospitalization: Dyspnea/Respdistress Present Illness HPI 75-year-old male history of chronic respiratory failure with tracheostomy on chronic ventilator, NG tube, alert and oriented x0 and unresponsive at his baseline, full code, here with increased oxygen requirement. According to [facility] report the patient appeared short of breath and was requiring increased oxygen flow on his ventilator. Patient's doctor examined the patient said that he had new abnormal breath sounds. Patient is alert and oriented x0 and unresponsive at his baseline and unable to provide any further history. In ED had a chest x-ray concerning for possible pneumoperitoneum. Surgical divine assist with care. Patient seen in the emergency department urgently patient evaluate chart reviewed. CT scan was ordered and upon going to the CT scan patient began desaturating again with trach cuff leak. Patient was brought upstairs to the emergency room and again trach repaired and patient sat back down for CT. Allergies: Coded Allergies: No Known Allergies (Unverified , 07/04/18) COVID-19 Screening Contact w/high risk pt: No Experienced COVID-19 symptoms?: Yes Coronavirus symptoms experienc: Shortness of Breath Medication History Scheduled Lansoprazole* (Lansoprazole*), 30 MG GT DAILY, (Reported) Levetiracetam (Keppra), 500 MG GT Q12HR Saccharomyces Boulardii (Florastor*), 250 MG GT TWICE A DAY, (Reported) Patient History Limited by: medical condition History Provided By: Medical Record, PMD Healthcare decision maker Resuscitation status Advanced Directive on File Past Medical/Surgical History Past Medical/Surgical History: (1) Hyperglycemia (2) Decubitus skin ulcer (3) Leukocytosis (4) GIB (gastrointestinal bleeding) (5) POPPY (acute kidney injury) (6) Sepsis (7) Pneumonia (8) Free intraperitoneal air (9) Perforated abdominal viscus Review of Systems Review of Symptoms General ROS: no weight loss or fever Psychological ROS: no depression or mood changes, no memory loss Ophthalmic ROS: no visual changes or eye irritation ENT ROS: no nasal congestion, hearing loss, dizziness Allergy and Immunology ROS: no allergic symptoms or urticaria Hematological and Lymphatic ROS: no swollen glands, unusual bleeding or bruising Endocrine ROS: no polyuria, polydipsia, weight changes, temperature intolerance Respiratory ROS: no cough, shortness of breath, or wheezing Cardiovascular ROS: no chest pain or dyspnea on exertion Gastrointestinal ROS: denies abdominal pain, bright red blood in stool. Musculoskeletal ROS: no myalgias or arthralgias Neurological ROS: no TIA or stroke symptoms Dermatological ROS: no new or changing skin lesions, rashes or pruritis unable to obtain given medical condition Physical Exam Physical Exam General appearance: mild distress, appears stated age Head: Normocephalic, without obvious abnormality, atraumatic Eyes: conjunctivae/corneas clear. PERRL, EOM's intact. Fundi benign Throat: Lips, mucosa, and tongue normal. Teeth and gums normal Neck: supple, symmetrical, trachea midline, no adenopathy, thyroid: not enlarged, symmetric, no tenderness/mass/nodules, no carotid bruit and no JVD trach Lungs: decreased to auscultation bilaterally Heart: regular rate and rhythm, S1, S2 normal, no murmur, click, rub or gallop Abdomen: soft, non-tender. Bowel sounds normal. No masses, no organomegaly. ft Extremities: extremities normal, atraumatic, no cyanosis or edema Pulses: 2+ and symmetric Skin: Skin see below Neurologic: Grossly normal Last 24 Hour Vital Signs Date Time Temp Pulse Resp B/P (MAP) Pulse Ox O2 Delivery O2 Flow Rate FiO2 07/28/20 13:04 61 36 100 07/28/20 13:02 62 31 100 Mechanical Ventilator 65.0 100 07/28/20 12:17 87 28 100 07/28/20 12:05 62 20 Trach Collar 15.0 07/28/20 12:05 97.0 20 109/72 96 Trach Collar 15.0 07/28/20 11:55 62 20 109/72 (84) 96 Trach Collar 15.0 Laboratory Tests Test 07/28/20 12:00 07/28/20 12:48 07/28/20 12:50 White Blood Count 12.0 K/UL (4.8-10.8) H Red Blood Count 3.36 M/UL (4.70-6.10) L Hemoglobin 9.0 G/DL (14.2-18.0) L Hematocrit 29.8 % (42.0-52.0) L Mean Corpuscular Volume 89 FL (80-99) Mean Corpuscular Hemoglobin 26.9 PG (27.0-31.0) L Mean Corpuscular Hemoglobin Concent 30.3 G/DL (32.0-36.0) L Red Cell Distribution Width 19.8 % (11.6-14.8) H Platelet Count 203 K/UL (150-450) Mean Platelet Volume 10.0 FL (6.5-10.1) Neutrophils (%) (Auto) 74.5 % (45.0-75.0) Lymphocytes (%) (Auto) 15.4 % (20.0-45.0) L Monocytes (%) (Auto) 8.0 % (1.0-10.0) Eosinophils (%) (Auto) 1.8 % (0.0-3.0) Basophils (%) (Auto) 0.4 % (0.0-2.0) Arterial Blood pH 7.412 (7.350-7.450) Arterial Blood Partial Pressure CO2 41.7 mmHg (35.0-45.0) Arterial Blood Partial Pressure O2 115.2 mmHg (75.0-100.0) H Arterial Blood HCO3 26.0 mmol/L (22.0-26.0) Arterial Blood Oxygen Saturation 98.7 % (95-100) Arterial Blood Base Excess 1.2 (-2-2) Balta Test Positive D-Dimer 1.88 mg/L FEU (0.00-0.49) H Urine Color Pale yellow Urine Appearance Clear Urine pH 5 (4.5-8.0) Urine Specific Hostetter 1.010 (1.005-1.035) Urine Protein Negative (NEGATIVE) Urine Glucose (UA) Negative (NEGATIVE) Urine Ketones Negative (NEGATIVE) Urine Blood Negative (NEGATIVE) Urine Nitrite Negative (NEGATIVE) Urine Bilirubin Negative (NEGATIVE) Urine Urobilinogen Normal MG/DL (0.0-1.0) Urine Leukocyte Esterase 1+ (NEGATIVE) H Urine RBC 0 /HPF (0 - 0) Urine WBC 10-15 /HPF (0 - 0) H Urine Squamous Epithelial Cells None /LPF (NONE/OCC) Urine Bacteria Few /HPF (NONE) Sodium Level 123 MMOL/L (136-145) L Potassium Level 5.1 MMOL/L (3.5-5.1) Chloride Level 90 MMOL/L (98-107) L Carbon Dioxide Level 27 MMOL/L (21-32) Anion Gap 6 mmol/L (5-15) Blood Urea Nitrogen 37 mg/dL (7-18) H Creatinine 1.3 MG/DL (0.55-1.30) Estimat Glomerular Filtration Rate > 60 mL/min (>60) Glucose Level 134 MG/DL (74-106) H Lactic Acid Level 2.00 mmol/L (0.4-2.0) Calcium Level 9.3 MG/DL (8.5-10.1) Magnesium Level 2.6 MG/DL (1.8-2.4) H Ferritin 143 NG/ML (8-388) Total Bilirubin 0.3 MG/DL (0.2-1.0) Aspartate Amino Transf (AST/SGOT) 25 U/L (15-37) Alanine Aminotransferase (ALT/SGPT) 24 U/L (12-78) Alkaline Phosphatase 134 U/L (46-116) H Lactate Dehydrogenase 340 U/L (81-234) H Total Creatine Kinase 81 U/L (26-308) Creatine Kinase MB 1.6 NG/ML (0.0-3.6) Creatine Kinase MB Relative Index 1.9 Troponin I 0.000 ng/mL (0.000-0.056) C-Reactive Protein, Quantitative 39.2 mg/dL (0.00-0.90) H Pro-B-Type Natriuretic Peptide 1294 pg/mL (0-125) H Total Protein 9.3 G/DL (6.4-8.2) H Albumin 2.0 G/DL (3.4-5.0) L Globulin 7.3 g/dL Albumin/Globulin Ratio 0.3 (1.0-2.7) L Microbiology Date/Time Source Procedure Growth Status 07/28/20 12:50 Nasopharynx SARS-CoV-2 RdRp Gene Assay - Final Complete 07/28/20 12:50 Nasal Nares - Final Complete 07/28/20 12:50 Nasal Nares - Final Complete Height (Feet): 5 Height (Inches): 11.00 Weight (Pounds): 200 Medications Current Medications Medications (Trade) Dose Ordered Sig/Derrick Route PRN Reason Start Time Stop Time Status Last Admin Dose Admin Iohexol (OMNIPAQUE-300 100ml) 100 ml NOW PRN INJ Radiology Procedure 07/28/20 14:00 07/30/20 13:59 Assessment/Plan Problem List: (1) Sepsis Assessment & Plan: 75M. cxr with possible free air. ct done and noted. abd distended. exam limited leukocytosis abnormal labs improving with fluids trach malfunction now improved on vent support cont current care will monitor and follow with recs ABDOMEN: Liver: Unremarkable. Gallbladder and bile ducts: Unremarkable. No calcified stones. Pancreas: Unremarkable. Spleen: Unremarkable. Adrenals: Unremarkable. Kidneys and ureters: Unremarkable. No hydronephrosis. Stomach and bowel: Mildly thickened sigmoid colon which may be underdistention, chronic, colitis, versus lesion. Colonic air-distention which may be ileus. No bowel obstruction or diverticulitis. PELVIS: Appendix: No findings to suggest acute appendicitis. Bladder: Thickened bladder which may be chronic, cystitis, versus lesion. Vera catheter in the bladder. Reproductive: Unremarkable as visualized. ABDOMEN and PELVIS: Intraperitoneal space: No free air. Bones/joints: No acute fracture. Soft tissues: Unremarkable. Vasculature: Unremarkable. Lymph nodes: Unremarkable. Tubes, lines and devices: Gastrostomy tube in the stomach. IMPRESSION: 1. Mildly thickened sigmoid colon which may be underdistention, chronic, colitis, versus lesion. Colonic air-distention which may be ileus. No bowel obstruction or diverticulitis. 2. Thickened bladder which may be chronic, cystitis, versus lesion. 3. Bibasilar infiltrates. Small left pleural effusion. ICD Codes: A41.9 - Sepsis, unspecified organism SNOMED: 66496161 (2) Pneumonia ICD Codes: J18.9 - Pneumonia, unspecified organism SNOMED: 035303477 (3) Free intraperitoneal air Assessment & Plan: Apparent lucency underlying the right hemidiaphragm. This may potentially be artifactual. Recommend correlation with CT of the abdomen to exclude the possibility of free peritoneal air, particularly if there is a history of abdominal pain. Extensive interstitial and alveolar infiltrates concerning for multifocal pneumonia. Possibility of underlying chronic interstitial/chronic lung disease and scarring can also be considered. Indwelling tracheostomy tube. ICD Codes: K66.8 - Other specified disorders of peritoneum SNOMED: 87455997 (4) Perforated abdominal viscus Assessment & Plan: CT reviewed no free air artifact on cxr abd distended cannot tell tender given condition will monitor ICD Codes: R19.8 - Other specified symptoms and signs involving the digestive system and abdomen SNOMED: 81353639 (5) Decubitus skin ulcer ICD Codes: L89.90 - Pressure ulcer of unspecified site, unspecified stage SNOMED: 133548738 (6) Hyperglycemia ICD Codes: R73.9 - Hyperglycemia, unspecified SNOMED: 78578529 (7) Leukocytosis ICD Codes: D72.829 - Elevated white blood cell count, unspecified SNOMED: 289421559, 357081096 (8) GIB (gastrointestinal bleeding) ICD Codes: K92.2 - Gastrointestinal hemorrhage, unspecified SNOMED: 33590888 (9) POPPY (acute kidney injury) ICD Codes: N17.9 - Acute kidney failure, unspecified SNOMED: 1268781, 35562352 (10) Dyspnea ICD Codes: R06.00 - Dyspnea, unspecified SNOMED: 791721050 (11) Respiratory distress ICD Codes: R06.03 - Acute respiratory distress SNOMED: 590688052 Abdoul Lucas Jul 28, 2020 15:39
--- NOTE | 2020-07-28 15:50 | NUR ---
ED Nurse Note: x-ray at bedside for cxr
--- NOTE | 2020-07-28 16:25 | Diagnostic Imaging Report ---
Indication: Shortness of breath Technique: XRAY Chest 1v Comparison: 07/28/2020, 12:47 Findings: There is a questionable lucency under the right hemidiaphragm is not definitively seen currently. There is no significant interval change in extensive interstitial and bilateral alveolar infiltrate. Small left pleural effusion suspected. No appreciable pneumothorax. Tracheostomy tube again noted. Impression: No significant interval change in extensive interstitial and bilateral alveolar densities concerning for multifocal pneumonia. Component of underlying interstitial/fibrotic disease may also be likely.
--- NOTE | 2020-07-28 16:27 | NUR ---
ED Nurse Note: Pt returned to CT via ACLS transport
--- NOTE | 2020-07-28 16:27 | Diagnostic Imaging Report ---
Indication: Shortness of breath Technique: XRAY Chest 1v Comparison: 06/30/2019 Findings: Extensive interstitial and alveolar infiltrates are again seen. There is a tracheostomy tube. Heart size is stable. There is apparent lucency underlying the right hemidiaphragm. No acute osseous abnormality. IMPRESSION: Apparent lucency underlying the right hemidiaphragm. This may potentially be artifactual. Recommend correlation with CT of the abdomen to exclude the possibility of free peritoneal air, particularly if there is a history of abdominal pain. Extensive interstitial and alveolar infiltrates concerning for multifocal pneumonia. Possibility of underlying chronic interstitial/chronic lung disease and scarring can also be considered. Indwelling tracheostomy tube.
[2020-07-28] MEDS ORDERED: Zosyn 3.375gm inj ONE (17:18)
--- NOTE | 2020-07-28 18:40 | Diagnostic Imaging Report ---
EXAM: CT Abdomen and Pelvis With Intravenous Contrast CLINICAL HISTORY: PAIN TECHNIQUE: Axial computed tomography images of the abdomen and pelvis with intravenous contrast. CTDI is 18.3 mGy and DLP is 989.3 mGy-cm. One or more of the following dose reduction techniques were used: automated exposure control, adjustment of the mA and/or kV according to patient size, use of iterative reconstruction technique. COMPARISON: No relevant prior studies available. FINDINGS: Lung bases: Unremarkable. Pleural space: Bibasilar infiltrates. Small left pleural effusion. ABDOMEN: Liver: Unremarkable. Gallbladder and bile ducts: Unremarkable. No calcified stones. Pancreas: Unremarkable. Spleen: Unremarkable. Adrenals: Unremarkable. Kidneys and ureters: Unremarkable. No hydronephrosis. Stomach and bowel: Mildly thickened sigmoid colon which may be underdistention, chronic, colitis, versus lesion. Colonic air-distention which may be ileus. No bowel obstruction or diverticulitis. PELVIS: Appendix: No findings to suggest acute appendicitis. Bladder: Thickened bladder which may be chronic, cystitis, versus lesion. Vera catheter in the bladder. Reproductive: Unremarkable as visualized. ABDOMEN and PELVIS: Intraperitoneal space: No free air. Bones/joints: No acute fracture. Soft tissues: Unremarkable. Vasculature: Unremarkable. Lymph nodes: Unremarkable. Tubes, lines and devices: Gastrostomy tube in the stomach. IMPRESSION: 1. Mildly thickened sigmoid colon which may be underdistention, chronic, colitis, versus lesion. Colonic air-distention which may be ileus. No bowel obstruction or diverticulitis. 2. Thickened bladder which may be chronic, cystitis, versus lesion. 3. Bibasilar infiltrates. Small left pleural effusion.
--- NOTE | 2020-07-28 19:27 | NUR ---
ED Nurse Note: Report given to MANNY Moon in ICU for continuity of care.
--- NOTE | 2020-07-28 19:40 | NUR ---
ED Nurse Note: Pt was transported via acls to ICU under the care of Dr. Montanez, report was given to MANNY Moon in ICU. Pt was transferred on stable condition.
--- NOTE | 2020-07-28 20:26 | NUR ---
TRANSFER TO FLOOR: Patient transferred to ICU at rm 246-c via gurney with teletypesetter monitor accompanied by RN, crop and soil technician and RT. Belongings checked and given to RN. Patient transported safely to bed and endorsed to RN
--- NOTE | 2020-07-28 20:30 | Consultation ---
DATE OF CONSULTATION: 07/28/2020 PULMONARY CONSULTATION REASON FOR CONSULTATION: Respiratory failure, pneumonia. REASON FOR ADMISSION: Seen with possible perforated abdominal viscus. HISTORY OF PRESENT ILLNESS: This is a 75-year-old debilitated male, noted to have significant abdominal distention in the half-way. The patient was transferred for further evaluation. The patient was noted to have significant bilateral pneumonia, also noted to have free air by x-ray. The patient was seen by Surgery for possible evaluation and intervention. The patient was also given antibiotics in the emergency room. The patient is chronically and critically ill at this time, now being admitted to ICU. Patient care discussed and reviewed. The patient is chronically ventilator dependent, tracheostomy dependent, G-tube dependent, and ventilator-bound as well as bed-bound. The patient is unable to give any history. He is nonverbal at this time. The patient is with multiple medical problems. The patient had been fairly stable at the nursing facility for some time, but has become acutely ill and critical. PAST MEDICAL HISTORY: Notable for seizures, chronic respiratory failure, tracheostomy, G-tube, bed-bound state, functional quadriplegic. MEDICATIONS: Reviewed. ALLERGIES: Reviewed. SOCIAL HISTORY: alf patient, resides at [facility]. REVIEW OF SYSTEMS: Unobtainable. FAMILY HISTORY: Not obtainable. PHYSICAL EXAMINATION: GENERAL: An ill-appearing male, chronically ill. VITAL SIGNS: Reviewed, blood pressure 114/71, 82, temperature 97. The patient is on 100% FiO2. Saturation is 100%. HEENT: Negative. Tracheostomy midline. The patient is with chronic tongue protrusion. LUNGS: Coarse breath sounds. CARDIAC: S1, S2. Regular rate and rhythm. ABDOMEN: Distended. Poor bowel sounds. EXTREMITIES: No cyanosis or clubbing. There is mild edema. NEUROLOGIC: Poorly responsive to pain. LABORATORY DATA: Reviewed. White count is 12, hemoglobin 9, platelets 203. Blood gases 7.41/41/115. Chemistry, BUN 27, creatinine 1.3, sodium 123. BNP 1294. Albumin 2. IMPRESSION: Possible perforated viscus, free peritoneal air, probable sepsis, hyponatremia, acute renal failure, chronic respiratory failure, diffuse pneumonia, elevated lactic dehydrogenase, abdominal distention, severe protein-calorie malnutrition, seizure disorder. RECOMMENDATION: NPO. Surgical evaluation. ID followup. Empiric antibiotics. Obtain cultures for blood, urine, sputum, and assess need for surgical exploration. Resume medications and give all medications IV as needed. ICU care and management. Ventilatory support. IV support. We will follow clinically for changes. Bakari Montanez M.D. DR: ADE JOB#: [id number] CC: NEHEMIAH
--- NOTE | 2020-07-28 20:38 | NUR ---
NURSE NOTES: Called and spoke with MD Montanez at this time. Informed him about CT of the abdomen done in ED. Orders received and read back to MD at this time. Will continue to monitor.
--- NOTE | 2020-07-28 20:40 | NUR ---
NURSE NOTES: Informed MD patient is having Tarry stools at this time, no new orders.
--- NOTE | 2020-07-28 21:07 | NUR ---
NURSE NOTES: MD Montanez called back with orders to convert all medications to IV, Continue sliding scale and Protonix IVP per SNF Meds. Orders read back and confirmed by . Will continue to monitor.
[2020-07-28] MEDS: levETIRAcetam 1,000mg/NS100ml 100 ML IVPB SCH (21:34)
[2020-07-28] MEDS ORDERED: levETIRAcetam 1,000mg/NS100ml 100 ML IVPB SCH (22:00)
[2020-07-28] MEDS: Piperacillin/Tazobactam 3.375 GM in NS 110 ML IVPB SCH (22:10)
[2020-07-28] MEDS: Amikacin for Inhalation 2ML INH SCH (23:43)
[2020-07-29] VITALS (24 sets, daily range): BP systolic 85–157; BP diastolic 44–76
--- NOTE | 2020-07-29 | NUR ---
NURSE NOTES: reposition and suction
--- NOTE | 2020-07-29 04:00 | NUR ---
NURSE NOTES: complete bed
[2020-07-29 04:20] LABS: BASOPHILS % (AUTO) 0.3 % (0.0-2.0); EOSINOPHILS % (AUTO) 1.1 % (0.0-3.0); HEMATOCRIT 28.3 % (42.0-52.0); HEMOGLOBIN 8.5 G/DL (14.2-18.0); LYMPHOCYTES % (AUTO) 8.3 % (20.0-45.0); MEAN CORPUSCULAR VOLUME 89 FL (80-99); MONOCYTES % (AUTO) 5.6 % (1.0-10.0); NEUTROPHILS % (AUTO) 84.7 % (45.0-75.0); PLATELET COUNT 220 K/UL (150-450); RED BLOOD COUNT 3.18 M/UL (4.70-6.10); RED CELL DISTRIBUTION WIDTH 19.8 % (11.6-14.8); WHITE BLOOD COUNT 16.3 K/UL (4.8-10.8)
[2020-07-29 04:35] LABS: ANION GAP 6 mmol/L (5-15); BLOOD UREA NITROGEN 24 mg/dL (7-18); CALCIUM 8.7 MG/DL (8.5-10.1); CARBON DIOXIDE 26 MMOL/L (21-32); CHLORIDE 99 MMOL/L (98-107); CREATININE 1.2 MG/DL (0.55-1.30); POTASSIUM 4.5 MMOL/L (3.5-5.1); SODIUM 131 MMOL/L (136-145)
[2020-07-29] MEDS: Vancomycin 500 MG in NS 110 ML IVPB SCH ×2 (05:01→17:46)
[2020-07-29] MEDS: Piperacillin/Tazobactam 3.375 GM in NS 110 ML IVPB SCH ×2 (06:00→10:44)
--- NOTE | 2020-07-29 06:00 | NUR ---
NURSE NOTES: bs 71 no coverage
[2020-07-29] MEDS: NovoLOG Insulin Flexpen SUBQ SCH ×4 (06:30→21:00)
--- NOTE | 2020-07-29 07:20 | NUR ---
NURSE NOTES: RECEIVED REPORT FROM ADRIEN [employer]ST[employer] SUPPORT OF ICU. RECEIVED PT WITH HOB ELEVATED 45 DEGREE OBTUNDED TRACH TO VENT ,TOLERATING WELL CURRENTS VENT SETTINGS,SAT 100% AT THIS TIME. RENDERED TRACH CARE AND ORAL HYGIENE ,LG AMT OF WHITE SECRETIONS NOTED. PT REPOSITIONED IN BED TO PROVIDE COMFORT AND TO PREVENT FURTHER SKIN MAXINE DOWN. DR DEY CAME TO SEE THE PATIENT .PT IS NPO , GT CONNECTED TO INTERMITTENT LOW SUCTIONING, NO DRAINAGE NOTED AT THIS TIME.F/C DRAINING DARK VITALIY URINE COLOR NOTED AT THIS TIME. WILL CONT TO MONITOR.
--- NOTE | 2020-07-29 07:30 | NUR ---
NURSE HAND-OFF REPORT: Latest Vital Signs: Temperature 98.8 , Pulse 102 , B/P 99 /53 , Respiratory Rate 27 , O2 SAT 100 , Mechanical Ventilator, O2 Flow Rate 90.0 . Vital Sign Comment: EKG Rhythm: Sinus Tachycardia Rhythm change?: N MD Notified?: - MD Response: Latest Ackerman Fall Score: 55 Fall Risk: High Risk Safety Measures: Call light Within Reach, Bed Alarm Zone 3, Side Rails Side Rails x3, Bed position Low and Locked. Fall Precautions: Yellow Socks Door Sign Patient Fall Education Report given to nehemias romero using ebar.
--- NOTE | 2020-07-29 08:30 | History and Physical Report ---
DATE OF ADMISSION: 07/28/2020 CHIEF COMPLAINT: Shortness of breath. HISTORY OF PRESENT ILLNESS: The patient is an unfortunate 75-year-old chronic vent dependent male, well known to me from the subacute alf facility. He was transferred with complaints of shortness of breath and hypoxemia. The patient is nonverbal at baseline. He is unable to provide any history. Several days ago, he was seen and he was stable at that time. He has a history of encephalopathy, stroke, seizure disorder, cirrhosis, chronic kidney disease. In the emergency room, the patient was noted to have a white count of 12,000. He had x-ray evidence of diffuse bilateral infiltrates concerning for pneumonia. The patient has been pancultured and is now admitted for further evaluation and care. PAST MEDICAL HISTORY: As above. PAST SURGICAL HISTORY: Includes a trach and a G-tube. CURRENT MEDICATIONS: Reconciled and reviewed. ALLERGIES: None. FAMILY HISTORY: None. SOCIAL HISTORY: There is no known history of tobacco, ethanol, or drugs. REVIEW OF SYSTEMS: Unobtainable as the patient is confused. PHYSICAL EXAMINATION: VITAL SIGNS: Temperature is 97, pulse 62, respirations 20, and blood pressure is 109/72. GENERAL: The patient is well-developed, no apparent distress. HEENT: Head is normocephalic and atraumatic. Sclerae anicteric. Oropharynx clear. NECK: Supple. HEART: Regular rate and rhythm. LUNGS: Significantly scattered rhonchi. ABDOMEN: Soft, distended with diminished sounds. EXTREMITIES: Without clubbing or cyanosis. There is trace edema noted. LABORATORY AND DIAGNOSTIC DATA: White count 12, hemoglobin 9, platelet count of 203. Sodium was 131, potassium was 4.5, creatinine was 1.2. UA showed 10 to 15 wbc's. X-ray showed bilateral infiltrates. CT scan of the abdomen showed mildly thickened sigmoid colon, thickened bladder, bibasilar infiltrates. ASSESSMENT: This is a 75-year-old male with a history of chronic respiratory failure, encephalopathy, seizure disorder, cirrhosis, CKD, admitted with sepsis secondary to pneumonia, UTI. PLAN: 1. Continue vent support, respiratory treatments, pulmonary toilet and suctioning as needed. 2. Broad-spectrum IV antibiotic therapy. Follow up pending cultures. ID, Pulmonary, Cardiology evaluations to be obtained. 3. Continue seizure medications and tube feeds and turn every two hours. 4. DVT and stress ulcer prophylaxis. Chano Galeana M.D. DR: JESI JOB#: [id number] CC:
--- NOTE | 2020-07-29 09:03 | NUR ---
RD ASSESSMENT & RECOMMENDATIONS SEE CARE ACTIVITY FOR COMPLETE ASSESSMENT DAILY ESTIMATED NEEDS: Needs based on Critical care 82kg 22-28 kcals/kg 0757-8057 total kcals 1.25-2 g protein/kg 103-164 g total protein 25-30 mL/kg 3282-3360 total fluid mLs NUTRITION DIAGNOSIS: * Swallowing difficulty R/T respiratory status, dysphagia as evidenced by trach/vent dep, PEG dep. (CURRENT TF: NPO) ENTERAL NUTRITION RECOMMENDATIONS: Glucerna 1.5 @ 55ml/hr x 24 hrs to provide 1320ml, 1980kcal, 109g prot, 1002ml free water * As medically able, rec GLUCERNA 1.5. Start @20ml/hr for 6 hrs, advance as tolerated 10ml/hr q4-6 hrs to goal. * HOB over 30 degrees/ water flush per MD ADDITIONAL RECOMMENDATIONS: * Re-calibrated bedcale wt for accurate CBW * Monitor lytes, replete as needed * Rec wound care eval * Rec bed side BG checks, pt w/ low blood glucose this morning. * Monitor ability to feed . .
[2020-07-29] MEDS: Pantoprazole Inj IVP SCH (09:05)
[2020-07-29] MEDS: levETIRAcetam 1,000mg/NS100ml 100 ML IVPB SCH ×2 (09:09→20:52)
[2020-07-29] MEDS: Amikacin for Inhalation 2ML INH SCH ×2 (10:29→22:38)
[2020-07-29] MEDS: Zoysn 3.37gm in NS 100ML IVPB SCH ×2 (10:44→18:01)
--- NOTE | 2020-07-29 10:51 | NUR ---
SPIN INSTRUCTOR NOTE PT is trach vent dependent and non-verbal. Per chart review, pt presents as A&O 1x. Pt is from [facility]. SW spoke w/ pt's son, Sean Paiz [phone], confirmed that he is the primary bus person dishwasher, and expresses full code for pt. There is no POLST in the chart. Per son, pt does not have POA/AD. No concern/needs expressed by son. Other emergency contact: Carlos Paiz (son) [phone]
--- NOTE | 2020-07-29 11:39 | Critical Care Progress Note ---
Assessment/Plan Assessment/Plan IMPRESSION: ?Possible perforated viscus, possible free peritoneal air, probable sepsis, hyponatremia, acute renal failure, chronic respiratory failure, thickened colon diffuse pneumonia, elevated lactic dehydrogenase, abdominal distention, severe protein-calorie malnutrition, seizure disorder. pneumonia PLAN care noted IV antibiotics respiratory care Ventilatory support SNF meds- IV or SL supportive care suction intermittent, GT no wean oxygen therapy prognosis critical surgical follow up monitor lytes medications/laboratory data/nursing notes/ICU care reviewed in detail note reviewed and edited care discussed with RN and RT ICU time spent >40 minutes Critical Care - Subjective Interval Events: remains critical NPO on suction on antibiotics surgery noted and reviewed Condition: critical EKG Rhythm: Sinus Tachycardia I&O: Intake and Output 07/28/20 07/29/20 19:00 07:00 Intake Total 1082.5 ml Output Total 685 ml Balance 397.5 ml Intake Oral 0 ml IV Total 1082.5 ml Output Urine Total 585 ml Stool Total 100 ml Gastric Drainage Total 0 ml # Bowel Movements 5 Critical Care - Objective Last 24 Hour Vital Signs Date Time Temp Pulse Resp B/P (MAP) Pulse Ox O2 Delivery O2 Flow Rate FiO2 07/29/20 10:00 106 27 109/57 (74) 100 07/29/20 09:00 105 26 103/57 (72) 100 07/29/20 08:00 70.0 07/29/20 08:00 Mechanical Ventilator 90.0 07/29/20 08:00 106 07/29/20 08:00 108 27 106/53 (70) 100 07/29/20 07:52 99.0 112 26 99/54 (69) 100 07/29/20 06:00 102 27 99/53 (68) 100 07/29/20 05:00 102 27 100/56 (71) 100 07/29/20 04:35 107 37 80 07/29/20 04:35 80 07/29/20 04:00 104 07/29/20 04:00 Mechanical Ventilator 90.0 07/29/20 04:00 98.8 102 33 115/59 (77) 99 07/29/20 03:18 91 28 70 07/29/20 03:00 97 32 117/63 (81) 100 07/29/20 02:00 91 29 106/58 (74) 98 07/29/20 01:00 85 24 92/55 (67) 100 07/29/20 00:36 84 23 70 07/29/20 00:00 Mechanical Ventilator 90.0 07/29/20 00:00 70.0 07/29/20 00:00 96.7 80 25 96/55 (69) 98 07/29/20 00:00 88 07/28/20 23:30 78 21 100 Mechanical Ventilator 90 76 16 70 70 07/28/20 23:00 62 19 96/53 (67) 100 07/28/20 22:56 90.0 07/28/20 22:00 69 21 91/51 (64) 100 07/28/20 21:13 62 32 90 07/28/20 21:00 Mechanical Ventilator 90.0 07/28/20 21:00 67 24 110/54 (72) 98 07/28/20 20:28 94.5 80 24 123/88 (100) 92 07/28/20 19:39 97.0 72 23 127/75 99 Mechanical Ventilator 65.0 100 07/28/20 19:30 60 30 90 07/28/20 18:39 97.0 72 23 127/75 99 Mechanical Ventilator 65.0 100 07/28/20 17:30 97.0 78 24 114/73 100 Mechanical Ventilator 65.0 100 07/28/20 16:37 76 35 100 07/28/20 16:00 97.0 83 34 111/64 100 Mechanical Ventilator 65.0 100 07/28/20 15:08 78 33 100 07/28/20 15:00 97.0 85 36 125/67 100 Mechanical Ventilator 65.0 100 07/28/20 14:00 97.0 76 30 114/71 100 Mechanical Ventilator 65.0 100 07/28/20 13:04 61 36 100 07/28/20 13:02 62 31 100 Mechanical Ventilator 65.0 100 07/28/20 13:00 97.0 96 22 125/68 98 Trach Collar 15.0 100 07/28/20 12:17 87 28 100 07/28/20 12:05 62 20 Trach Collar 15.0 07/28/20 12:05 97.0 20 109/72 96 Trach Collar 15.0 07/28/20 11:55 62 20 109/72 (84) 96 Trach Collar 15.0 Labs: Labs Test 07/28/20 12:00 07/28/20 12:48 07/28/20 12:50 07/29/20 03:50 White Blood Count 12.0 K/UL (4.8-10.8) 16.3 K/UL (4.8-10.8) Red Blood Count 3.36 M/UL (4.70-6.10) 3.18 M/UL (4.70-6.10) Hemoglobin 9.0 G/DL (14.2-18.0) 8.5 G/DL (14.2-18.0) Hematocrit 29.8 % (42.0-52.0) 28.3 % (42.0-52.0) Mean Corpuscular Volume 89 FL (80-99) 89 FL (80-99) Mean Corpuscular Hemoglobin 26.9 PG (27.0-31.0) 26.9 PG (27.0-31.0) Mean Corpuscular Hemoglobin Concent 30.3 G/DL (32.0-36.0) 30.2 G/DL (32.0-36.0) Red Cell Distribution Width 19.8 % (11.6-14.8) 19.8 % (11.6-14.8) Platelet Count 203 K/UL (150-450) 220 K/UL (150-450) Mean Platelet Volume 10.0 FL (6.5-10.1) 9.8 FL (6.5-10.1) Neutrophils (%) (Auto) 74.5 % (45.0-75.0) 84.7 % (45.0-75.0) Lymphocytes (%) (Auto) 15.4 % (20.0-45.0) 8.3 % (20.0-45.0) Monocytes (%) (Auto) 8.0 % (1.0-10.0) 5.6 % (1.0-10.0) Eosinophils (%) (Auto) 1.8 % (0.0-3.0) 1.1 % (0.0-3.0) Basophils (%) (Auto) 0.4 % (0.0-2.0) 0.3 % (0.0-2.0) Arterial Blood pH 7.412 (7.350-7.450) Arterial Blood Partial Pressure CO2 41.7 mmHg (35.0-45.0) Arterial Blood Partial Pressure O2 115.2 mmHg (75.0-100.0) Arterial Blood HCO3 26.0 mmol/L (22.0-26.0) Arterial Blood Oxygen Saturation 98.7 % (95-100) Arterial Blood Base Excess 1.2 (-2-2) Balta Test Positive D-Dimer 1.88 mg/L FEU (0.00-0.49) Urine Color Pale yellow Urine Appearance Clear Urine pH 5 (4.5-8.0) Urine Specific [place] 1.010 (1.005-1.035) Urine Protein Negative (NEGATIVE) Urine Glucose (UA) Negative (NEGATIVE) Urine Ketones Negative (NEGATIVE) Urine Blood Negative (NEGATIVE) Urine Nitrite Negative (NEGATIVE) Urine Bilirubin Negative (NEGATIVE) Urine Urobilinogen Normal MG/DL (0.0-1.0) Urine Leukocyte Esterase 1+ (NEGATIVE) Urine RBC 0 /HPF (0 - 0) Urine WBC 10-15 /HPF (0 - 0) Urine Squamous Epithelial Cells None /LPF (NONE/OCC) Urine Bacteria Few /HPF (NONE) Sodium Level 123 MMOL/L (136-145) 131 MMOL/L (136-145) Potassium Level 5.1 MMOL/L (3.5-5.1) 4.5 MMOL/L (3.5-5.1) Chloride Level 90 MMOL/L (98-107) 99 MMOL/L (98-107) Carbon Dioxide Level 27 MMOL/L (21-32) 26 MMOL/L (21-32) Anion Gap 6 mmol/L (5-15) 6 mmol/L (5-15) Blood Urea Nitrogen 37 mg/dL (7-18) 24 mg/dL (7-18) Creatinine 1.3 MG/DL (0.55-1.30) 1.2 MG/DL (0.55-1.30) Estimat Glomerular Filtration Rate > 60 mL/min (>60) > 60 mL/min (>60) Glucose Level 134 MG/DL (74-106) 63 MG/DL (74-106) Lactic Acid Level 2.00 mmol/L (0.4-2.0) 1.00 mmol/L (0.4-2.0) Calcium Level 9.3 MG/DL (8.5-10.1) 8.7 MG/DL (8.5-10.1) Magnesium Level 2.6 MG/DL (1.8-2.4) Ferritin 143 NG/ML (8-388) Total Bilirubin 0.3 MG/DL (0.2-1.0) Aspartate Amino Transf (AST/SGOT) 25 U/L (15-37) Alanine Aminotransferase (ALT/SGPT) 24 U/L (12-78) Alkaline Phosphatase 134 U/L (46-116) Lactate Dehydrogenase 340 U/L (81-234) Total Creatine Kinase 81 U/L (26-308) Creatine Kinase MB 1.6 NG/ML (0.0-3.6) Creatine Kinase MB Relative Index 1.9 Troponin I 0.000 ng/mL (0.000-0.056) C-Reactive Protein, Quantitative 39.2 mg/dL (0.00-0.90) Pro-B-Type Natriuretic Peptide 1294 pg/mL (0-125) Total Protein 9.3 G/DL (6.4-8.2) Albumin 2.0 G/DL (3.4-5.0) Globulin 7.3 g/dL Albumin/Globulin Ratio 0.3 (1.0-2.7) Test 07/29/20 05:53 POC Whole Blood Glucose 71 MG/DL (74-106) Objective: GENERAL: An ill-appearing male, chronically ill. HEENT: Negative. Tracheostomy midline. The patient is with chronic tongue protrusion. LUNGS: Coarse breath sounds. moderate breath sounds CARDIAC: S1, S2. Regular rate and rhythm. ABDOMEN: Distended. Poor bowel sounds. EXTREMITIES: No cyanosis or clubbing. There is mild edema. NEUROLOGIC: Poorly responsive to pain. Micro: Microbiology Date/Time Source Procedure Growth Status 07/28/20 13:20 Rectum Received 07/28/20 12:50 Nasopharynx SARS-CoV-2 RdRp Gene Assay - Final Complete 07/28/20 12:50 Nasal Nares - Final Complete 07/28/20 12:50 Nasal Nares - Final Complete Accucheck: 71 Bakari Montanez MD Jul 29, 2020 11:39
--- NOTE | 2020-07-29 13:03 | NUR ---
RADIOLOGY DEPT, CHEST AND ABDOMEN X-RAYS DONE.-P.DYE
--- NOTE | 2020-07-29 13:17 | Surgery Progress Note ---
Surgery Progress Note Subjective Additional Comments worsening leukocytosis labs reviewed abd distended cxr noted ct reviewed Objective Last 24 Hour Vital Signs Date Time Temp Pulse Resp B/P (MAP) Pulse Ox O2 Delivery O2 Flow Rate FiO2 07/29/20 10:00 106 27 109/57 (74) 100 07/29/20 09:00 105 26 103/57 (72) 100 07/29/20 08:00 70.0 07/29/20 08:00 Mechanical Ventilator 90.0 07/29/20 08:00 106 07/29/20 08:00 108 27 106/53 (70) 100 07/29/20 07:52 99.0 112 26 99/54 (69) 100 07/29/20 06:00 102 27 99/53 (68) 100 07/29/20 05:00 102 27 100/56 (71) 100 07/29/20 04:35 107 37 80 07/29/20 04:35 80 07/29/20 04:00 104 07/29/20 04:00 Mechanical Ventilator 90.0 07/29/20 04:00 98.8 102 33 115/59 (77) 99 07/29/20 03:18 91 28 70 07/29/20 03:00 97 32 117/63 (81) 100 07/29/20 02:00 91 29 106/58 (74) 98 07/29/20 01:00 85 24 92/55 (67) 100 07/29/20 00:36 84 23 70 07/29/20 00:00 Mechanical Ventilator 90.0 07/29/20 00:00 70.0 07/29/20 00:00 96.7 80 25 96/55 (69) 98 07/29/20 00:00 88 07/28/20 23:30 78 21 100 Mechanical Ventilator 90 76 16 70 70 07/28/20 23:00 62 19 96/53 (67) 100 07/28/20 22:56 90.0 07/28/20 22:00 69 21 91/51 (64) 100 07/28/20 21:13 62 32 90 07/28/20 21:00 Mechanical Ventilator 90.0 07/28/20 21:00 67 24 110/54 (72) 98 07/28/20 20:28 94.5 80 24 123/88 (100) 92 07/28/20 19:39 97.0 72 23 127/75 99 Mechanical Ventilator 65.0 100 07/28/20 19:30 60 30 90 07/28/20 18:39 97.0 72 23 127/75 99 Mechanical Ventilator 65.0 100 07/28/20 17:30 97.0 78 24 114/73 100 Mechanical Ventilator 65.0 100 07/28/20 16:37 76 35 100 07/28/20 16:00 97.0 83 34 111/64 100 Mechanical Ventilator 65.0 100 07/28/20 15:08 78 33 100 07/28/20 15:00 97.0 85 36 125/67 100 Mechanical Ventilator 65.0 100 07/28/20 14:00 97.0 76 30 114/71 100 Mechanical Ventilator 65.0 100 I&O Intake and Output 07/28/20 07/29/20 19:00 07:00 Intake Total 1082.5 ml Output Total 685 ml Balance 397.5 ml Intake Oral 0 ml IV Total 1082.5 ml Output Urine Total 585 ml Stool Total 100 ml Gastric Drainage Total 0 ml # Bowel Movements 5 Dressing: saturated Cardiovascular: RSR Respiratory: decreased breath sounds Abdomen: soft, non-tender, present bowel sounds Extremities: no tenderness, no cyanosis Laboratory Tests Test 07/29/20 03:50 07/29/20 05:53 White Blood Count 16.3 K/UL (4.8-10.8) H Red Blood Count 3.18 M/UL (4.70-6.10) L Hemoglobin 8.5 G/DL (14.2-18.0) L Hematocrit 28.3 % (42.0-52.0) L Mean Corpuscular Volume 89 FL (80-99) Mean Corpuscular Hemoglobin 26.9 PG (27.0-31.0) L Mean Corpuscular Hemoglobin Concent 30.2 G/DL (32.0-36.0) L Red Cell Distribution Width 19.8 % (11.6-14.8) H Platelet Count 220 K/UL (150-450) Mean Platelet Volume 9.8 FL (6.5-10.1) Neutrophils (%) (Auto) 84.7 % (45.0-75.0) H Lymphocytes (%) (Auto) 8.3 % (20.0-45.0) L Monocytes (%) (Auto) 5.6 % (1.0-10.0) Eosinophils (%) (Auto) 1.1 % (0.0-3.0) Basophils (%) (Auto) 0.3 % (0.0-2.0) Sodium Level 131 MMOL/L (136-145) L Potassium Level 4.5 MMOL/L (3.5-5.1) Chloride Level 99 MMOL/L (98-107) Carbon Dioxide Level 26 MMOL/L (21-32) Anion Gap 6 mmol/L (5-15) Blood Urea Nitrogen 24 mg/dL (7-18) H Creatinine 1.2 MG/DL (0.55-1.30) Estimat Glomerular Filtration Rate > 60 mL/min (>60) Glucose Level 63 MG/DL (74-106) L Lactic Acid Level 1.00 mmol/L (0.4-2.0) Calcium Level 8.7 MG/DL (8.5-10.1) POC Whole Blood Glucose 71 MG/DL (74-106) L Plan Problems: (1) Sepsis Assessment & Plan: 75M. cxr with possible free air. ct done and noted. abd distended. exam limited leukocytosis abnormal labs improving with fluids trach malfunction now improved on vent support cont current care will monitor and follow with recs ABDOMEN: Liver: Unremarkable. Gallbladder and bile ducts: Unremarkable. No calcified stones. Pancreas: Unremarkable. Spleen: Unremarkable. Adrenals: Unremarkable. Kidneys and ureters: Unremarkable. No hydronephrosis. Stomach and bowel: Mildly thickened sigmoid colon which may be underdistention, chronic, colitis, versus lesion. Colonic air-distention which may be ileus. No bowel obstruction or diverticulitis. PELVIS: Appendix: No findings to suggest acute appendicitis. Bladder: Thickened bladder which may be chronic, cystitis, versus lesion. Vera catheter in the bladder. Reproductive: Unremarkable as visualized. ABDOMEN and PELVIS: Intraperitoneal space: No free air. Bones/joints: No acute fracture. Soft tissues: Unremarkable. Vasculature: Unremarkable. Lymph nodes: Unremarkable. Tubes, lines and devices: Gastrostomy tube in the stomach. IMPRESSION: 1. Mildly thickened sigmoid colon which may be underdistention, chronic, colitis, versus lesion. Colonic air-distention which may be ileus. No bowel obstruction or diverticulitis. 2. Thickened bladder which may be chronic, cystitis, versus lesion. 3. Bibasilar infiltrates. Small left pleural effusion. (2) Pneumonia (3) Free intraperitoneal air Assessment & Plan: Apparent lucency underlying the right hemidiaphragm. This may potentially be artifactual. Recommend correlation with CT of the abdomen to exclude the possibility of free peritoneal air, particularly if there is a history of abdominal pain. Extensive interstitial and alveolar infiltrates concerning for multifocal pneu monia. Possibility of underlying chronic interstitial/chronic lung disease and scarring can also be considered. Indwelling tracheostomy tube. (4) Perforated abdominal viscus Assessment & Plan: CT reviewed no free air artifact on cxr abd distended cannot tell tender given condition will monitor (5) Decubitus skin ulcer (6) Hyperglycemia (7) Leukocytosis (8) GIB (gastrointestinal bleeding) (9) POPPY (acute kidney injury) (10) Dyspnea (11) Respiratory distress Abdoul Lucas Jul 29, 2020 13:17
--- NOTE | 2020-07-29 14:15 | NUR ---
NURSE NOTES:Skin/wound assessment Left side of neck pressure ulcer stage 2 from tracheostomy strap 2.5x1.0x0.3 wound bed pink tissue, small amount serosanguineous drainage Xeroform and Optifoam applied. Sacral area scarring noted but no open wounds skin intact Triad and Optifoam applied.Bilateral heels intact Optifoam applied, pillows to offload and air mattress overlay placed today.
--- NOTE | 2020-07-29 16:45 | Consultation ---
DATE OF CONSULTATION: 07/29/2020 INFECTIOUS DISEASES CONSULTATION This consult is for coverage of Rosalinda Guerrero MD. CONSULTING PHYSICIAN: Carlos Amaro MD PRIMARY ATTENDING PHYSICIAN: Chano Galeana MD REASON FOR CONSULTATION: Pneumonia, sepsis. HISTORY OF PRESENT ILLNESS: This is a 75-year-old male admitted yesterday from a detention facility because of increase in oxygen requirement. The patient has ventilator-dependent respiratory failure and is not source of history. At the time of admission, he had leukocytosis of 12,000, which increased today to 16.3. He developed tachycardia up to 112 in the morning, and was tachypneic with respiratory rate up to 32. PAST MEDICAL HISTORY: COPD, ventilator-dependent respiratory failure, diabetes mellitus, hypertension, dementia, cirrhosis, chronic kidney disease, and functional quadriplegia. PAST SURGICAL HISTORY: Tracheostomy, G-tube placement. ALLERGIES: No known drug allergies. MEDICATIONS: Protonix, insulin, vancomycin, Zosyn, amikacin, inhaler, Tylenol, clonidine, Keppra, and sodium chloride. SOCIAL HISTORY: penitentiary resident. No other history obtainable by the patient. PHYSICAL EXAMINATION: VITAL SIGNS: Temperature 96.7, pulse 91, blood pressure 117/63, O2 saturation 100% on FiO2 of 70%. GENERAL APPEARANCE: Seems to be well developed. HEAD AND NECK: Status post tracheostomy. HEART: Normal rate. He has peripheral line. LUNGS: On ventilator, has coarse sounds. ABDOMEN: Distended. He has G-tube feeding. EXTREMITIES: He has some generalized edema. NEUROLOGIC: Unresponsive. He has twitching movement in face. LABORATORY AND DIAGNOSTIC DATA: WBC 16.3, hemoglobin 8.5, hematocrit 28.3, platelet is 220,000. Sodium 131, potassium 4.5, chloride 99, bicarb 26, BUN 24, creatinine 1.2, blood sugar was 63. Albumin is 2. Chest x-ray showed extensive interstitial and bilateral alveolar densities concerning for multifocal pneumonia. CT scan of the abdomen and pelvis was done that showed thickened sigmoid colon, maybe due to underdistention, chronic colitis, colonic ileus, thickened bladder wall maybe due to chronic cystitis. UA, wbc was 10-15. IMPRESSION: 1. Sepsis with leukocytosis, tachycardia, and tachypnea. 2. Extensive bilateral pneumonia. 3. Thickened bladder wall, may have chronic cystitis. 4. Ventilator-dependent respiratory failure. 5. Diabetes mellitus. 6. Hypertension. 7. Chronic kidney disease 8. Hyponatremia. RECOMMENDATION: Continue vancomycin and Zosyn and hold amikacin. We will order sputum culture. We will follow up the cultures. The patient was seen by surgeon for possible perforated viscus, but CT scan is not very supportive of that diagnosis. At the end of my exam, I thank Dr. Galeana for involving me in the care of this patient. Carlos Amaro M.D. DR: Caitlin JOB#: [id number] CC:
[2020-07-29] MEDS ORDERED: METOPROLOL TART25 MG GT (17:47)
[2020-07-29] MEDS ORDERED: ACETAMINOP160 MG/5 M GT (17:47)
[2020-07-29] MEDS ORDERED: MULTI-DELYN237 ML GT (17:47)
[2020-07-29] MEDS ORDERED: COLACE100 MG GT (17:47)
[2020-07-29] MEDS ORDERED: UTI-STAT L3875 MG/31 GT (17:47)
[2020-07-29] MEDS ORDERED: CATAPRES0.1 MG GT (17:47)
[2020-07-29] MEDS ORDERED: NOVOLIN R100 UNIT/1 SUBQ (17:47)
[2020-07-29] MEDS ORDERED: LANTUS SOL100 UNIT/1 SUBQ (17:47)
[2020-07-29] MEDS ORDERED: PRO-STAT LIQUID30 ML GT (17:47)
[2020-07-29] MEDS ORDERED: VITAMIN C500 MG/11 PO (17:47)
--- NOTE | 2020-07-29 19:00 | NUR ---
NURSE NOTES:PLACED A TELEPHONE CALL TO DR DEY AND MADE AWARE AND NOTIFIED REGARDING PT HAS BLOOD IN URINE. REPORT ENDORSE TO MASHA BRYANT STAFF OF [employer]. WILL CONT TO MONITOR.
--- NOTE | 2020-07-29 19:15 | NUR ---
HAND-OFF: Report given to .MASHA BRYANT.
--- NOTE | 2020-07-29 19:30 | NUR ---
NURSE NOTES: Received pt obtunded,, trache to vent on ac mode,SR on the monitor, BP86/44, afebrile, NPO Gtube to LIS with 0 out abdomen firm and distended, Mds are aware [place] to gravity with dark dilcia yellow urine with blood tinged Dr Galeana made aware by MANNY Almaguer no orders given , Pt with wound on pts back of the neck with optifoam clean and dry . NS at 100ml infusing well per RT hand. Site atraumatic . Pt with 2-3+ edema. on his extremities. Will continue to monitor.
--- NOTE | 2020-07-29 20:15 | NUR ---
NURSE NOTES: Called Dr Galeana and aware md with pts SBP on the 80s. Awaiting for md to call lawrence.
--- NOTE | 2020-07-29 21:15 | NUR ---
NURSE NOTES: Sbp 101/55, SR on the monitor. afebrile.
[2020-07-29] MEDS ORDERED: NS 250 ML IVPB ONE (21:30)
--- NOTE | 2020-07-29 21:30 | NUR ---
NURSE NOTES: Dr Galeana acknowledge and aware with pts low Bp with orders given. Pls see orders.
[2020-07-29] MEDS: Midodrine 10mg tab ORAL SCH (21:53)
--- NOTE | 2020-07-29 22:00 | NUR ---
NURSE NOTES: Pt had x1 soft tarry stool. Cleaned up pt.
[2020-07-30] VITALS (24 sets, daily range): BP systolic 98–128; BP diastolic 50–67
--- NOTE | 2020-07-30 | NUR ---
NURSE NOTES: Sbp maintained at >100 at this time. Suctioned TN tk beige foamy secretions. Repositioned to sides q 2hrs PRN to avoid further skin breakdown.
--- NOTE | 2020-07-30 02:00 | NUR ---
NURSE NOTES: Pt had another foamy stools. Cleaned up pt.
[2020-07-30] MEDS: Zoysn 3.37gm in NS 100ML IVPB SCH ×3 (03:20→17:49)
--- NOTE | 2020-07-30 04:00 | NUR ---
NURSE NOTES: Suctioned tn tk beige secretions moderate in amt. 02 sat >95%
[2020-07-30 05:02] LABS: ANION GAP 7 mmol/L (5-15); BLOOD UREA NITROGEN 19 mg/dL (7-18); CALCIUM 8.3 MG/DL (8.5-10.1); CARBON DIOXIDE 24 MMOL/L (21-32); CHLORIDE 107 MMOL/L (98-107); CREATININE 1.2 MG/DL (0.55-1.30); POTASSIUM 4.7 MMOL/L (3.5-5.1); SODIUM 138 MMOL/L (136-145)
[2020-07-30 05:09] LABS: HEMATOCRIT 22.7 % (42.0-52.0); MEAN CORPUSCULAR VOLUME 90 FL (80-99); PLATELET COUNT 181 K/UL (150-450); RED BLOOD COUNT 2.52 M/UL (4.70-6.10); RED CELL DISTRIBUTION WIDTH 19.7 % (11.6-14.8); WHITE BLOOD COUNT 12.6 K/UL (4.8-10.8)
[2020-07-30 05:26] LABS: HEMOGLOBIN 6.8 G/DL (14.2-18.0)
--- NOTE | 2020-07-30 05:30 | NUR ---
NURSE NOTES: Complete bed bath with bed changed done.
[2020-07-30] MEDS: NovoLOG Insulin Flexpen SUBQ SCH ×4 (06:10→21:00)
--- NOTE | 2020-07-30 06:30 | NUR ---
NURSE NOTES: Dr Galeana was here and aware with low Hgb/HCT, as well as swollen legs and SCD was not placed. Pls see orders.
[2020-07-30] MEDS ORDERED: Heparin1,000 units/500ml Premix(Conc:2 units/ml) IV PRN (06:45)
[2020-07-30] MEDS ORDERED: Lidocaine 1% Plain 30 ml INJ PRN (06:45)
--- NOTE | 2020-07-30 07:27 | NUR ---
NURSE HAND-OFF REPORT: Latest Vital Signs: Temperature 99.0 , Pulse 84 , B/P 98 /52 , Respiratory Rate 25 , O2 SAT 88 , Mechanical Ventilator, O2 Flow Rate 90.0 . Vital Sign Comment: EKG Rhythm: Sinus Rhythm Rhythm change?: N MD Notified?: - MD Response: Latest Ackerman Fall Score: 55 Fall Risk: High Risk Safety Measures: Call light Within Reach, Bed Alarm Zone 3, Side Rails Side Rails x3, Bed position Low and Locked. Fall Precautions: Yellow Socks Yellow Gown Door Sign Report given to .
--- NOTE | 2020-07-30 07:40 | NUR ---
NURSE NOTES: LATE ENTRY: RECEIVED REPORT FROM MASHA William PT IN BED, SIDE LYING POSITION. OBTUNDED WITH FACIAL TWITCHING. NO TRACKING. PUPILS UNABLE TO DETERMINE. RESPONSIVE TO PAIN. FEBRILE 99 AX. SR ON MONITOR. PORTEX 8, SETTINGS: AC16, VT500, FI02 80%, PEEP 5. FOAMY, COPIOUS SECRETIONS. ORAL CARE AND SECRETIONS CLEANED. LUNGS RHONCHI. ABDOMEN DISTENDED. PT NPO. G-TUBE, CONNECTED TO LOW INTERMITTENT SUCTION, MINIMAL OUTPUT, CLEAR, YELLOW DRAINAGE. BOWEL SOUNDS ACTIVE. NO BM AT THIS TIME. [place] IN PLACE. DRAINING URINE. ON P200 MATTRESS. SKIN- SEE ASSESSMENT. IV BILATERAL 20G HANDS, PATENT. EDEMA OF UPPER ON LOWER EXTREMITIES. PT CONTRACTED. NS RUNNING AT 100ML/HR. STANDARD ISOLATION IN PLACE. BED, LOW AND LOCKED. WILL CONTINUE TO MONITOR PT.
--- NOTE | 2020-07-30 08:30 | Critical Care Progress Note ---
Assessment/Plan Assessment/Plan IMPRESSION: ?Possible perforated viscus, possible free peritoneal air, probable sepsis, hyponatremia, acute renal failure, chronic respiratory failure, thickened colon diffuse pneumonia, elevated lactic dehydrogenase, abdominal distention, severe protein-calorie malnutrition, seizure disorder. pneumonia, anemia PLAN care noted transfuse IV antibiotics cultures noted respiratory care Ventilatory support SNF meds- IV or SL for now supportive care suction intermittent, GT..feeds per surgery no wean oxygen therapy prognosis critical surgical follow up monitor lytes and correct medications/laboratory data/nursing notes/ICU care reviewed in detail note reviewed and edited care discussed with RN and RT ICU time spent >40 minutes Critical Care - Subjective Interval Events: remains NPO critical in ICU on vent poorly responsive ROS Limited/Unobtainable: Yes Condition: critical EKG Rhythm: Sinus Rhythm I&O: Intake and Output 07/29/20 07/30/20 19:00 07:00 Intake Total 910 ml 1210.0 ml Output Total 455 ml 530 ml Balance 455 ml 680.0 ml Intake Oral 0 ml 0 ml IV Total 910 ml 1210.0 ml Output Urine Total 455 ml 530 ml Gastric Drainage Total 0 ml 0 ml # Bowel Movements 4 5 Critical Care - Objective Last 24 Hour Vital Signs Date Time Temp Pulse Resp B/P (MAP) Pulse Ox O2 Delivery O2 Flow Rate FiO2 07/30/20 06:00 84 25 98/52 (67) 88 07/30/20 05:12 90 28 80 07/30/20 05:00 81 24 98/55 (69) 100 07/30/20 04:00 90 07/30/20 04:00 80.0 07/30/20 04:00 Mechanical Ventilator 90.0 07/30/20 04:00 99.0 76 23 99/52 (68) 100 07/30/20 03:20 82 25 80 07/30/20 03:00 91 33 126/58 (80) 100 07/30/20 02:00 76 24 107/58 (74) 100 07/30/20 01:20 83 21 80 07/30/20 01:00 82 21 101/53 (69) 100 07/30/20 00:00 Mechanical Ventilator 90.0 07/30/20 00:00 80.0 07/30/20 00:00 84 07/30/20 00:00 99.8 85 20 103/50 (67) 100 07/29/20 23:00 92 28 103/55 (71) 100 07/29/20 22:58 91 23 100 Mechanical Ventilator 80 92 23 80 07/29/20 22:00 93 24 101/55 (70) 100 07/29/20 21:00 98 24 101/53 (69) 100 07/29/20 20:36 84 27 80 07/29/20 20:00 80.0 07/29/20 20:00 99.4 83 26 85/44 (58) 100 07/29/20 20:00 Mechanical Ventilator 90.0 07/29/20 20:00 99 07/29/20 19:18 99 25 80 07/29/20 19:00 100 26 86/45 (59) 99 07/29/20 18:00 100 25 103/47 (65) 100 07/29/20 17:29 100 29 80 07/29/20 17:00 106 26 101/51 (68) 100 07/29/20 17:00 99.0 101 27 97/48 (64) 100 07/29/20 16:09 Mechanical Ventilator 90.0 07/29/20 16:09 98 07/29/20 16:09 70.0 07/29/20 16:00 98 26 87/49 (62) 99 07/29/20 15:15 102 23 80 07/29/20 15:00 101 26 96/54 (68) 99 07/29/20 14:00 102 25 97/53 (68) 100 07/29/20 13:10 106 30 80 07/29/20 13:00 110 26 110/53 (72) 100 07/29/20 12:00 Mechanical Ventilator 90.0 07/29/20 12:00 99.0 107 26 101/55 (70) 100 07/29/20 12:00 107 07/29/20 12:00 70.0 07/29/20 11:00 106 27 95/61 (72) 100 07/29/20 10:39 110 32 100 Mechanical Ventilator 80 107 30 80 07/29/20 10:00 106 27 109/57 (74) 100 07/29/20 09:00 105 26 103/57 (72) 100 Labs: Laboratory Tests 07/29/20 17:01: POC Whole Blood Glucose [Pending] 07/29/20 21:04: POC Whole Blood Glucose 128H 07/30/20 04:00: White Blood Count 12.6H, Red Blood Count 2.52L, Hemoglobin 6.8*L, Hematocrit 22.7L, Mean Corpuscular Volume 90, Mean Corpuscular Hemoglobin 27.1, Mean Corpuscular Hemoglobin Concent 30.0L, Red Cell Distribution Width 19.7H, Platelet Count 181, Mean Platelet Volume 8.5, Neutrophils (%) (Auto) , Lymphocytes (%) (Auto) , Monocytes (%) (Auto) , Eosinophils (%) (Auto) , Basophils (%) (Auto) , Neutrophils % (Manual) [Pending], Lymphocytes % (Manual) [Pending], Platelet Estimate [Pending], Platelet Morphology [Pending], Sodium Level 138, Potassium Level 4.7, Chloride Level 107, Carbon Dioxide Level 24, Anion Gap 7, Blood Urea Nitrogen 19H, Creatinine 1.2, Estimat Glomerular Filtration Rate > 60, Glucose Level 151H, Calcium Level 8.3L, Vancomycin Level Trough 7.2 07/30/20 04:22: POC Whole Blood Glucose 152H Objective: GENERAL: An ill-appearing male, chronically ill. HEENT: Negative. Tracheostomy midline. The patient is with chronic tongue protrusion. LUNGS: Coarse breath sounds. moderate breath sounds CARDIAC: S1, S2. Regular rate and rhythm. ABDOMEN: Distended. Poor bowel sounds. EXTREMITIES: No cyanosis or clubbing. There is mild edema. NEUROLOGIC: Poorly responsive to pain. Micro: Microbiology Date/Time Source Procedure Growth Status 07/28/20 13:20 Rectum Received 07/28/20 13:20 Nasal Nares MRSA Culture - Final NO METHICILLIN RESISTANT STAPH AUREUS... Complete 07/28/20 12:50 Nasopharynx SARS-CoV-2 RdRp Gene Assay - Final Complete 07/28/20 12:50 Nasal Nares - Final Complete 07/28/20 12:50 Nasal Nares - Final Complete 07/28/20 12:50 Blood Blood Culture - Preliminary NO GROWTH AFTER 24 HOURS Resulted 07/28/20 12:40 Blood Blood Culture - Preliminary NO GROWTH AFTER 24 HOURS Resulted Accucheck: 152 Bakari Montanez MD Jul 30, 2020 08:30
--- NOTE | 2020-07-30 08:30 | NUR ---
NURSE NOTES: LATE ENTRY: CALLED PT SON, GANGA MARTINEZ TO WITNESS OVER PHONE CONSENT FOR TRANSFUSION AND PICC. TWO R.N. ALL QUESTIONS ANSWERED.
[2020-07-30] MEDS: levETIRAcetam 1,000mg/NS100ml 100 ML IVPB SCH ×2 (09:06→21:13)
[2020-07-30] MEDS: Midodrine 10mg tab ORAL SCH ×3 (09:07→17:49)
[2020-07-30] MEDS: Pantoprazole Inj IVP SCH (09:07)
[2020-07-30] MEDS ORDERED: NS 275ml ONE (09:35)
--- NOTE | 2020-07-30 09:50 | NUR ---
NURSE NOTES: MD. BRICE HERE TO SEE PT. PLACED ORDER FOR PRBC. PICC ORDER FOR TODAY.
--- NOTE | 2020-07-30 10:00 | NUR ---
NURSE NOTES: LAB HERE TO DRAW BLOOD, TYPE AND CROSS. PT IN NO ACUTE DISTRESS.
[2020-07-30] MEDS: Amikacin for Inhalation 2ML INH SCH (10:14)
--- NOTE | 2020-07-30 10:21 | NUR ---
NURSE NOTES: MD. CONDON HERE TO SEE PT. WAS INFORMED OF WBC 12.6, AX TEMP 99.1. SECRETIONS COPIOUS, CLEAR. WILL HAVE PICC LINE PLACED TODAY.
--- NOTE | 2020-07-30 10:30 | NUR ---
NURSE NOTES: Patient received from Jagruti. Patient stable at this time with no s/sx of pain or distress. SR on steward/stewardess third class. Cardiac sounds benign. Breath sounds diminished. Cardiac sounds benign. Ventilated through trach portex 8 AC 16 500mL 80% P5. RT reinflated cuff at this time. Bowel sounds present with abdominal distention. Generalized edema +2 noted. Pulses palpable from radial. Vera draining light dilcia, clear urine. Fluids infusing through Peripheral IV. Side rails upx2, call light within reach, bed low and locked.
--- NOTE | 2020-07-30 10:34 | Infectious Diseases Prog Note ---
Assessment/Plan Assessment/Plan antibiotics : vancomycin iv, zosyn, inhaled amikacin A 1. gram negative pneumonia COVID 19 negative 2. respiratory failure 3. colitis 4. UTI 5. diabetes mellitus 6. hypertension 7. COPD P 1. continue zosyn 2. d/c iv vancomycin, inhaled amikacin 3. stool for c.diff 4. will follow up cultures Subjective ROS Limited/Unobtainable: Yes Allergies: Coded Allergies: No Known Allergies (Unverified , 07/04/18) Objective Last 24 Hour Vital Signs Date Time Temp Pulse Resp B/P (MAP) Pulse Ox O2 Delivery O2 Flow Rate FiO2 07/30/20 10:00 73 23 113/66 (82) 100 07/30/20 09:10 76 25 80 07/30/20 09:00 73 25 104/54 (71) 100 07/30/20 08:00 80.0 07/30/20 08:00 Mechanical Ventilator 07/30/20 08:00 69 21 103/53 (70) 100 07/30/20 08:00 76 07/30/20 07:20 71 20 80 07/30/20 07:00 99.1 68 19 105/55 (72) 100 07/30/20 06:00 84 25 98/52 (67) 88 07/30/20 05:12 90 28 80 07/30/20 05:00 81 24 98/55 (69) 100 07/30/20 04:00 90 07/30/20 04:00 80.0 07/30/20 04:00 Mechanical Ventilator 90.0 07/30/20 04:00 99.0 76 23 99/52 (68) 100 07/30/20 03:20 82 25 80 07/30/20 03:00 91 33 126/58 (80) 100 07/30/20 02:00 76 24 107/58 (74) 100 07/30/20 01:20 83 21 80 07/30/20 01:00 82 21 101/53 (69) 100 07/30/20 00:00 Mechanical Ventilator 90.0 07/30/20 00:00 80.0 07/30/20 00:00 84 07/30/20 00:00 99.8 85 20 103/50 (67) 100 07/29/20 23:00 92 28 103/55 (71) 100 07/29/20 22:58 91 23 100 Mechanical Ventilator 80 92 23 80 07/29/20 22:00 93 24 101/55 (70) 100 07/29/20 21:00 98 24 101/53 (69) 100 07/29/20 20:36 84 27 80 07/29/20 20:00 80.0 07/29/20 20:00 99.4 83 26 85/44 (58) 100 07/29/20 20:00 Mechanical Ventilator 90.0 07/29/20 20:00 99 07/29/20 19:18 99 25 80 07/29/20 19:00 100 26 86/45 (59) 99 07/29/20 18:00 100 25 103/47 (65) 100 07/29/20 17:29 100 29 80 07/29/20 17:00 106 26 101/51 (68) 100 07/29/20 17:00 99.0 101 27 97/48 (64) 100 07/29/20 16:09 Mechanical Ventilator 90.0 07/29/20 16:09 98 07/29/20 16:09 70.0 07/29/20 16:00 98 26 87/49 (62) 99 07/29/20 15:15 102 23 80 07/29/20 15:00 101 26 96/54 (68) 99 07/29/20 14:00 102 25 97/53 (68) 100 07/29/20 13:10 106 30 80 07/29/20 13:00 110 26 110/53 (72) 100 07/29/20 12:00 Mechanical Ventilator 90.0 07/29/20 12:00 99.0 107 26 101/55 (70) 100 07/29/20 12:00 107 07/29/20 12:00 70.0 07/29/20 11:00 106 27 95/61 (72) 100 07/29/20 10:39 110 32 100 Mechanical Ventilator 80 107 30 80 Height (Feet): 5 Height (Inches): 11.00 Weight (Pounds): 180 HEENT: status post trach Respiratory/Chest: lungs clear Cardiovascular: normal rate, regular rhythm, no gallop/murmur Abdomen: soft, non tender, other - GT Extremities: other - + edema bilaterally Microbiology Date/Time Source Procedure Growth Status 07/29/20 19:00 Sputum Gram Stain Pending Resulted 07/29/20 19:00 Sputum Culture - Preliminary Gram Negative Bacillus 1 Resulted 07/28/20 13:20 Rectum Received 07/28/20 13:20 Nasal Nares MRSA Culture - Final NO METHICILLIN RESISTANT STAPH AUREUS... Complete 07/28/20 12:50 Nasopharynx SARS-CoV-2 RdRp Gene Assay - Final Complete 07/28/20 12:50 Nasal Nares - Final Complete 07/28/20 12:50 Nasal Nares - Final Complete 07/28/20 12:50 Blood Blood Culture - Preliminary NO GROWTH AFTER 24 HOURS Resulted 07/28/20 12:40 Blood Blood Culture - Preliminary NO GROWTH AFTER 24 HOURS Resulted Laboratory Tests Test 07/29/20 17:01 07/29/20 21:04 07/30/20 04:00 07/30/20 04:22 POC Whole Blood Glucose Pending 128 MG/DL (74-106) H 152 MG/DL (74-106) H White Blood Count 12.6 K/UL (4.8-10.8) H Red Blood Count 2.52 M/UL (4.70-6.10) L Hemoglobin 6.8 G/DL (14.2-18.0) *L Hematocrit 22.7 % (42.0-52.0) L Mean Corpuscular Volume 90 FL (80-99) Mean Corpuscular Hemoglobin 27.1 PG (27.0-31.0) Mean Corpuscular Hemoglobin Concent 30.0 G/DL (32.0-36.0) L Red Cell Distribution Width 19.7 % (11.6-14.8) H Platelet Count 181 K/UL (150-450) Mean Platelet Volume 8.5 FL (6.5-10.1) Neutrophils (%) (Auto) % (45.0-75.0) Lymphocytes (%) (Auto) % (20.0-45.0) Monocytes (%) (Auto) % (1.0-10.0) Eosinophils (%) (Auto) % (0.0-3.0) Basophils (%) (Auto) % (0.0-2.0) Differential Total Cells Counted 100 Neutrophils % (Manual) 75 % (45-75) Lymphocytes % (Manual) 14 % (20-45) L Monocytes % (Manual) 10 % (1-10) Eosinophils % (Manual) 1 % (0-3) Basophils % (Manual) 0 % (0-2) Band Neutrophils 0 % (0-8) Platelet Estimate Adequate Platelet Morphology Normal Hypochromasia 1+ Anisocytosis 2+ Sodium Level 138 MMOL/L (136-145) Potassium Level 4.7 MMOL/L (3.5-5.1) Chloride Level 107 MMOL/L (98-107) Carbon Dioxide Level 24 MMOL/L (21-32) Anion Gap 7 mmol/L (5-15) Blood Urea Nitrogen 19 mg/dL (7-18) H Creatinine 1.2 MG/DL (0.55-1.30) Estimat Glomerular Filtration Rate > 60 mL/min (>60) Glucose Level 151 MG/DL (74-106) H Calcium Level 8.3 MG/DL (8.5-10.1) L Vancomycin Level Trough 7.2 ug/mL (5.0-12.0) Current Medications Medications (Trade) Dose Ordered Sig/Derrick Route PRN Reason Start Time Stop Time Status Last Admin Dose Admin Acetaminophen (Tylenol) 650 mg Q4H PRN RECTAL Mild Pain (Pain Scale 1-3) 07/28/20 21:15 08/27/20 21:14 Amikacin Sulfate (Amikin) 500 mg Q12HR@ INH 07/28/20 22:00 08/04/20 21:59 07/30/20 10:14 Chlorhexidine Gluconate (Gwendolyn-Hex 2%) 1 applic DAILY@1999 TOPIC 07/30/20 20:00 10/28/20 19:59 Clonidine HCl (Catapres Tab) 0.1 mg Q4H PRN ORAL For High Blood Pressure 07/28/20 21:15 10/26/20 21:14 Dextrose (Dextrose 50%) 25 ml Q30M PRN IV Hypoglycemia 07/28/20 21:15 10/26/20 21:14 Dextrose (Dextrose 50%) 50 ml Q30M PRN IV Hypoglycemia 07/28/20 21:15 10/26/20 21:14 Heparin Sodium/ Sodium Chloride (Heparin 1000 units/500ml Premix) 1,000 unit ONCE PRN IV PICC line placement 07/30/20 06:45 08/01/20 06:44 Insulin Aspart (NovoLOG) BEFORE MEALS AND HS SUBQ 07/29/20 06:30 10/27/20 06:29 Iohexol (OMNIPAQUE-300 100ml) 100 ml NOW PRN INJ Radiology Procedure 07/28/20 14:00 07/30/20 13:59 Levetiracetam 100 ml @ 400 mls/hr Q12HR IVPB 07/28/20 21:15 10/26/20 21:14 07/30/20 09:06 Lidocaine HCl (Xylocaine 1% 30ml) 30 ml ONCE PRN INJ PICC line 07/30/20 06:45 08/01/20 06:44 Midodrine (Pro-Amatine) 10 mg THREE TIMES A DAY ORAL 07/29/20 21:30 10/27/20 21:29 07/30/20 09:07 Pantoprazole (Protonix) 40 mg DAILY IVP 07/29/20 09:00 08/28/20 08:59 07/30/20 09:07 Piperacillin Sod/ Tazobactam Sod 3.375 gm/Sodium Chloride 110 ml @ 27.5 mls/hr Q8H IVPB 07/29/20 11:00 08/05/20 04:59 07/30/20 03:20 Sodium Chloride 1,000 ml @ 100 mls/hr Q10H IV 07/28/20 21:00 08/27/20 20:59 07/30/20 03:18 Vancomycin HCl (Vanco pharmacy to dose) 1 ea DAILY PRN MISC Per rx protocol 07/28/20 21:00 08/27/20 20:59 Vancomycin HCl 1.5 gm/Sodium Chloride 275 ml @ 137.5 mls/ hr Q24H IVPB 07/30/20 08:00 08/04/20 07:59 07/30/20 09:06 Rosalinda Guerrero MD Jul 30, 2020 10:34
--- NOTE | 2020-07-30 10:59 | NUR ---
NURSE HAND-OFF REPORT: Latest Vital Signs: Temperature 99.3 , Pulse 70 , B/P 110 /54 , Respiratory Rate 24 , O2 SAT 100 , Mechanical Ventilator, O2 Flow Rate 80.0 . Vital Sign Comment: EKG Rhythm: Sinus Bradycardia Rhythm change?: N MD Notified?: - MD Response: Latest Ackerman Fall Score: 50 Fall Risk: High Risk Safety Measures: Call light Within Reach, Bed Alarm Zone 3, Side Rails Side Rails x2, Bed position Low and Locked. Fall Precautions: Yellow Socks Report given to .BEAR William ENDORSED PRBC'S, AND F/U WITH PICC LINE.
--- NOTE | 2020-07-30 12:20 | NUR ---
NURSE NOTES: Patient asymptomatic after 15min of blood transfusing. VSS. Oral care performed. Copious amount of clear oral secretions noted.
--- NOTE | 2020-07-30 14:04 | Pre-Procedure Note/Attestation ---
Pre-Procedure Note/Attestation Complete Prior to Procedure Planned Procedure: not applicable Procedure Narrative: picc line Indications for Procedure Pre-Operative Diagnosis: need iv access Attestation infomred consent obtained by primary team Jose Watson M.D. Jul 30, 2020 14:04
--- NOTE | 2020-07-30 14:49 | NUR ---
NURSE NOTES: Patient fed. Ate about 25% saturating well throughout meal. Drank one juice. ABG obtained by RT. Addendum: 07/30/20 at 1451 by BEAR BRANTLEY RN DISREGARD. DOCUMENTATION FOR DIFFERENT PATIENT
--- NOTE | 2020-07-30 15:17 | General Progress Note ---
Subjective ROS Limited/Unobtainable: Yes Constitutional: Reports: malaise, weakness HEENT: Reports: no symptoms Cardiovascular: Reports: edema Respiratory: Reports: shortness of breath, sputum Gastrointestinal/Abdominal: Reports: difficulty swallowing Genitourinary: Reports: no symptoms Neurologic/Psychiatric: Reports: pre-existing deficit, seizure Endocrine: Reports: no symptoms Hematologic/Lymphatic: Reports: anemia Allergies: Coded Allergies: No Known Allergies (Unverified , 07/04/18) All Systems: reviewed and negative except above Subjective Hypotensive overnight. Discussed with night RN. Blood pressures improved after IV fluid bolus and albumin infusion. No reports of bleeding. Has poor IV access. May possibly need pressors. Poorly responsive at baseline. Objective Last 24 Hour Vital Signs Date Time Temp Pulse Resp B/P (MAP) Pulse Ox O2 Delivery O2 Flow Rate FiO2 07/30/20 12:20 99.7 73 24 122/60 (80) 100 07/30/20 12:00 Mechanical Ventilator 07/30/20 12:00 80.0 07/30/20 12:00 99.0 74 25 118/57 (77) 100 07/30/20 11:56 70 07/30/20 10:35 76 19 100 Mechanical Ventilator 80 78 20 80 07/30/20 10:00 73 23 113/66 (82) 100 07/30/20 09:10 76 25 80 07/30/20 09:00 73 25 104/54 (71) 100 07/30/20 08:00 80.0 07/30/20 08:00 Mechanical Ventilator 07/30/20 08:00 69 21 103/53 (70) 100 07/30/20 08:00 76 07/30/20 07:20 71 20 80 07/30/20 07:00 99.1 68 19 105/55 (72) 100 07/30/20 06:00 84 25 98/52 (67) 88 07/30/20 05:12 90 28 80 07/30/20 05:00 81 24 98/55 (69) 100 07/30/20 04:00 90 07/30/20 04:00 80.0 07/30/20 04:00 Mechanical Ventilator 90.0 07/30/20 04:00 99.0 76 23 99/52 (68) 100 07/30/20 03:20 82 25 80 07/30/20 03:00 91 33 126/58 (80) 100 07/30/20 02:00 76 24 107/58 (74) 100 07/30/20 01:20 83 21 80 07/30/20 01:00 82 21 101/53 (69) 100 07/30/20 00:00 Mechanical Ventilator 90.0 07/30/20 00:00 80.0 07/30/20 00:00 84 07/30/20 00:00 99.8 85 20 103/50 (67) 100 07/29/20 23:00 92 28 103/55 (71) 100 07/29/20 22:58 91 23 100 Mechanical Ventilator 80 92 23 80 07/29/20 22:00 93 24 101/55 (70) 100 07/29/20 21:00 98 24 101/53 (69) 100 07/29/20 20:36 84 27 80 07/29/20 20:00 80.0 07/29/20 20:00 99.4 83 26 85/44 (58) 100 07/29/20 20:00 Mechanical Ventilator 90.0 07/29/20 20:00 99 07/29/20 19:18 99 25 80 07/29/20 19:00 100 26 86/45 (59) 99 07/29/20 18:00 100 25 103/47 (65) 100 07/29/20 17:29 100 29 80 07/29/20 17:00 106 26 101/51 (68) 100 07/29/20 17:00 99.0 101 27 97/48 (64) 100 07/29/20 16:09 Mechanical Ventilator 90.0 07/29/20 16:09 98 07/29/20 16:09 70.0 07/29/20 16:00 98 26 87/49 (62) 99 07/29/20 15:15 102 23 80 l Intake and Output 07/29/20 07/30/20 19:00 07:00 Intake Total 910 ml 1310.0 ml Output Total 455 ml 530 ml Balance 455 ml 780.0 ml Intake Oral 0 ml 0 ml IV Total 910 ml 1310.0 ml Output Urine Total 455 ml 530 ml Gastric Drainage Total 0 ml 0 ml # Bowel Movements 4 5 Laboratory Tests 07/29/20 17:01: POC Whole Blood Glucose [Pending] 07/29/20 21:04: POC Whole Blood Glucose 128H 07/30/20 04:00: White Blood Count 12.6H, Red Blood Count 2.52L, Hemoglobin 6.8*L, Hematocrit 22.7L, Mean Corpuscular Volume 90, Mean Corpuscular Hemoglobin 27.1, Mean Corpuscular Hemoglobin Concent 30.0L, Red Cell Distribution Width 19.7H, Platelet Count 181, Mean Platelet Volume 8.5, Neutrophils (%) (Auto) , Lym phocytes (%) (Auto) , Monocytes (%) (Auto) , Eosinophils (%) (Auto) , Basophils (%) (Auto) , Differential Total Cells Counted 100, Neutrophils % (Manual) 75, Lymphocytes % (Manual) 14L, Monocytes % (Manual) 10, Eosinophils % (Manual) 1, Basophils % (Manual) 0, Band Neutrophils 0, Platelet Estimate Adequate, Platelet Morphology Normal, Hypochromasia 1+, Anisocytosis 2+, Sodium Level 138, Potassium Level 4.7, Chloride Level 107, Carbon Dioxide Level 24, Anion Gap 7, Blood Urea Nitrogen 19H, Creatinine 1.2, Estimat Glomerular Filtration Rate > 60, Glucose Level 151H, Calcium Level 8.3L, Vancomycin Level Trough 7.2 07/30/20 04:22: POC Whole Blood Glucose 152H Height (Feet): 5 Height (Inches): 11.00 Weight (Pounds): 180 General Appearance: WD/WN, alert, lethargic, confused EENT: PERRL/EOMI Neck: non-tender, normal alignment Cardiovascular: normal rate, regular rhythm Respiratory/Chest: chest wall non-tender, lungs clear, normal breath sounds, no respiratory distress, no accessory muscle use Abdomen: normal bowel sounds, non tender, soft, no organomegaly, no mass Edema: mild edema Neurologic: disoriented, unresponsive, aphasia Assessment/Plan Problem List: (1) Sepsis ICD Codes: A41.9 - Sepsis, unspecified organism SNOMED: 42763835 (2) Pneumonia ICD Codes: J18.9 - Pneumonia, unspecified organism SNOMED: 291631238 (3) Leukocytosis ICD Codes: D72.829 - Elevated white blood cell count, unspecified SNOMED: 376088554, 420192892 (4) POPPY (acute kidney injury) ICD Codes: N17.9 - Acute kidney failure, unspecified SNOMED: 9447742, 37879411 (5) Dyspnea ICD Codes: R06.00 - Dyspnea, unspecified SNOMED: 062478476 (6) Respiratory distress ICD Codes: R06.03 - Acute respiratory distress SNOMED: 396414517 Status: stable, not improved Assessment/Plan: IV fluids and boluses as needed Continue broad-spectrum IV antibiotics PICC line for antibiotics, IV fluids and possibly pressors Monitor H&H Transfuse as needed PPI treatment Stool for occult blood Continue vent support Breathing treatments and suctioning as needed Monitor electrolytes Turn every 2 hours Continue seizure treatment Tube feeds Chano Galeana MD Jul 30, 2020 15:17
--- NOTE | 2020-07-30 15:45 | NUR ---
NURSE NOTES: Second unit of blood hung. No s/sx of distress. No evidence of adverse reaction. VSS.
--- NOTE | 2020-07-30 16:03 | NUR ---
RADIOLOGY NOTE: RIGHT UPPER EXTREMITY PICC LINE PLACEMENT BY DR. JUAREZ AT 1350 HRS. FA
--- NOTE | 2020-07-30 16:16 | Diagnostic Imaging Report ---
Indications: Needs long-term IV access Technique: Procedure performed at bedside. Procedural timeout performed. Ultrasound confirms patent compressible right basilic vein. Total sterile technique, including sterile probe cover and sterile gel, sterile gloves, hand hygiene, hat, mask,, sterile gown, large sterile drape, and preparation with 2% chlorhexidine utilized. Local anesthesia with 1% lidocaine. Under real-time ultrasound guidance, puncture vein using 21-gauge needle, passage 0.018 guidewire, exchange for 5 Irish peel-away sheath. 4 Irish dual-lumen power PICC cut to 30 cm. It was inserted through the peel-away sheath. Peel-away sheath and guidewire removed. Catheter fixed to the skin. Both catheter ports aspirated and flushed. Patient tolerated procedure well, without immediate complication. Followup chest x-ray obtained, documents catheter tip position at the SVC. Extensive interstitial and alveolar densities are increased in the left lung. There is a small left pleural effusion which is new compared to prior exam. Tracheostomy again noted.. IMPRESSION: Successful bedside placement of PICC under sonographic guidance, as described above.
--- NOTE | 2020-07-30 16:40 | Cardiology Report ---
APPROVED REPORT EKG Measurement Heart [id number] <Conclusion> Normal sinus rhythm Inferior infarct, age undetermined Abnormal ECG
--- NOTE | 2020-07-30 16:48 | Surgery Progress Note ---
Surgery Progress Note Subjective Additional Comments leukocytosis improved anemia prbc today picc bobbi planned hypotensive intermittently abd stable Objective Last 24 Hour Vital Signs Date Time Temp Pulse Resp B/P (MAP) Pulse Ox O2 Delivery O2 Flow Rate FiO2 07/30/20 15:10 61 23 80 07/30/20 15:00 98.6 56 21 114/54 (74) 100 07/30/20 14:00 60 23 110/55 (73) 100 07/30/20 13:20 88 20 80 07/30/20 13:00 58 21 125/65 (85) 100 07/30/20 12:20 99.7 73 24 122/60 (80) 100 07/30/20 12:00 Mechanical Ventilator 07/30/20 12:00 80.0 07/30/20 12:00 99.0 74 25 118/57 (77) 100 07/30/20 11:56 70 07/30/20 10:35 76 19 100 Mechanical Ventilator 80 78 20 80 07/30/20 10:00 73 23 113/66 (82) 100 07/30/20 09:10 76 25 80 07/30/20 09:00 73 25 104/54 (71) 100 07/30/20 08:00 80.0 07/30/20 08:00 Mechanical Ventilator 07/30/20 08:00 69 21 103/53 (70) 100 07/30/20 08:00 76 07/30/20 07:20 71 20 80 07/30/20 07:00 99.1 68 19 105/55 (72) 100 07/30/20 06:00 84 25 98/52 (67) 88 07/30/20 05:12 90 28 80 07/30/20 05:00 81 24 98/55 (69) 100 07/30/20 04:00 90 07/30/20 04:00 80.0 07/30/20 04:00 Mechanical Ventilator 90.0 07/30/20 04:00 99.0 76 23 99/52 (68) 100 07/30/20 03:20 82 25 80 07/30/20 03:00 91 33 126/58 (80) 100 07/30/20 02:00 76 24 107/58 (74) 100 07/30/20 01:20 83 21 80 07/30/20 01:00 82 21 101/53 (69) 100 07/30/20 00:00 Mechanical Ventilator 90.0 07/30/20 00:00 80.0 07/30/20 00:00 84 07/30/20 00:00 99.8 85 20 103/50 (67) 100 07/29/20 23:00 92 28 103/55 (71) 100 07/29/20 22:58 91 23 100 Mechanical Ventilator 80 92 23 80 07/29/20 22:00 93 24 101/55 (70) 100 07/29/20 21:00 98 24 101/53 (69) 100 07/29/20 20:36 84 27 80 07/29/20 20:00 80.0 07/29/20 20:00 99.4 83 26 85/44 (58) 100 07/29/20 20:00 Mechanical Ventilator 90.0 07/29/20 20:00 99 07/29/20 19:18 99 25 80 07/29/20 19:00 100 26 86/45 (59) 99 07/29/20 18:00 100 25 103/47 (65) 100 07/29/20 17:29 100 29 80 07/29/20 17:00 106 26 101/51 (68) 100 07/29/20 17:00 99.0 101 27 97/48 (64) 100 I&O Intake and Output 07/29/20 07/30/20 19:00 07:00 Intake Total 910 ml 1310.0 ml Output Total 455 ml 530 ml Balance 455 ml 780.0 ml Intake Oral 0 ml 0 ml IV Total 910 ml 1310.0 ml Output Urine Total 455 ml 530 ml Gastric Drainage Total 0 ml 0 ml # Bowel Movements 4 5 Cardiovascular: RSR Respiratory: clear, decreased breath sounds Abdomen: soft, distended, decreased bowel sounds Extremities: no tenderness, no cyanosis Laboratory Tests Test 07/29/20 17:01 07/29/20 21:04 07/30/20 04:00 07/30/20 04:22 POC Whole Blood Glucose Pending 128 MG/DL (74-106) H 152 MG/DL (74-106) H White Blood Count 12.6 K/UL (4.8-10.8) H Red Blood Count 2.52 M/UL (4.70-6.10) L Hemoglobin 6.8 G/DL (14.2-18.0) *L Hematocrit 22.7 % (42.0-52.0) L Mean Corpuscular Volume 90 FL (80-99) Mean Corpuscular Hemoglobin 27.1 PG (27.0-31.0) Mean Corpuscular Hemoglobin Concent 30.0 G/DL (32.0-36.0) L Red Cell Distribution Width 19.7 % (11.6-14.8) H Platelet Count 181 K/UL (150-450) Mean Platelet Volume 8.5 FL (6.5-10.1) Neutrophils (%) (Auto) % (45.0-75.0) Lymphocytes (%) (Auto) % (20.0-45.0) Monocytes (%) (Auto) % (1.0-10.0) Eosinophils (%) (Auto) % (0.0-3.0) Basophils (%) (Auto) % (0.0-2.0) Differential Total Cells Counted 100 Neutrophils % (Manual) 75 % (45-75) Lymphocytes % (Manual) 14 % (20-45) L Monocytes % (Manual) 10 % (1-10) Eosinophils % (Manual) 1 % (0-3) Basophils % (Manual) 0 % (0-2) Band Neutrophils 0 % (0-8) Platelet Estimate Adequate Platelet Morphology Normal Hypochromasia 1+ Anisocytosis 2+ Sodium Level 138 MMOL/L (136-145) Potassium Level 4.7 MMOL/L (3.5-5.1) Chloride Level 107 MMOL/L (98-107) Carbon Dioxide Level 24 MMOL/L (21-32) Anion Gap 7 mmol/L (5-15) Blood Urea Nitrogen 19 mg/dL (7-18) H Creatinine 1.2 MG/DL (0.55-1.30) Estimat Glomerular Filtration Rate > 60 mL/min (>60) Glucose Level 151 MG/DL (74-106) H Calcium Level 8.3 MG/DL (8.5-10.1) L Vancomycin Level Trough 7.2 ug/mL (5.0-12.0) Plan Problems: (1) Sepsis Assessment & Plan: 75M. cxr with possible free air. ct done and noted. abd distended. exam limited leukocytosis abnormal labs improving with fluids trach malfunction now improved on vent support cont current care will monitor and follow with recs PICC line trend labs transfuse prbc prn ABDOMEN: Liver: Unremarkable. Gallbladder and bile ducts: Unremarkable. No calcified stones. Pancreas: Unremarkable. Spleen: Unremarkable. Adrenals: Unremarkable. Kidneys and ureters: Unremarkable. No hydronephrosis. Stomach and bowel: Mildly thickened sigmoid colon which may be underdistention, chronic, colitis, versus lesion. Colonic air-distention which may be ileus. No bowel obstruction or diverticulitis. PELVIS: Appendix: No findings to suggest acute appendicitis. Bladder: Thickened bladder which may be chronic, cystitis, versus lesion. Vera catheter in the bladder. Reproductive: Unremarkable as visualized. ABDOMEN and PELVIS: Intraperitoneal space: No free air. Bones/joints: No acute fracture. Soft tissues: Unremarkable. Vasculature: Unremarkable. Lymph nodes: Unremarkable. Tubes, lines and devices: Gastrostomy tube in the stomach. IMPRESSION: 1. Mildly thickened sigmoid colon which may be underdistention, chronic, colitis, versus lesion. Colonic air-distention which may be ileus. No bowel obstruction or diverticulitis. 2. Thickened bladder which may be chronic, cystitis, versus lesion. 3. Bibasilar infiltrates. Small left pleural effusion. (2) Pneumonia (3) Free intraperitoneal air Assessment & Plan: Apparent lucency underlying the right hemidiaphragm. This may potentially be artifactual. Recommend correlation with CT of the abdomen to exclude the possibility of free peritoneal air, particularly if there is a history of abdominal pain. Extensive interstitial and alveolar infiltrates concerning for multifocal pneumonia. Possibility of underlying chronic interstitial/chronic lung disease and scarring can also be considered. Indwelling tracheostomy tube. (4) Perforated abdominal viscus Assessment & Plan: CT reviewed no free air artifact on cxr abd distended cannot tell tender given condition will monitor (5) Decubitus skin ulcer (6) Hyperglycemia (7) Leukocytosis (8) GIB (gastrointestinal bleeding) (9) POPPY (acute kidney injury) (10) Dyspnea (11) Respiratory distress Abdoul Lucas Jul 30, 2020 16:48
[2020-07-30] MEDS: D5NS 1,000 ML IV SCH (17:49)
--- NOTE | 2020-07-30 18:00 | NUR ---
NURSE NOTES: 2nd unit transfused. Fluids started and Zosyn hung through ZOE PICC.
--- NOTE | 2020-07-30 19:30 | NUR ---
NURSE NOTES: Received report from Kiara BRYANT.
--- NOTE | 2020-07-30 19:35 | NUR ---
NURSE HAND-OFF REPORT: Latest Vital Signs: Temperature 99.3 , Pulse 70 , B/P 110 /54 , Respiratory Rate 24 , O2 SAT 100 , Mechanical Ventilator, O2 Flow Rate 80.0 . Vital Sign Comment: STABLE EKG Rhythm: Sinus Bradycardia Rhythm change?: N MD Notified?: - MD Response: Latest Ackerman Fall Score: 50 Fall Risk: High Risk Safety Measures: Call light Within Reach, Bed Alarm Zone 3, Side Rails Side Rails x2, Bed position Low and Locked. Fall Precautions: Yellow Socks Report given to Noni BRYANT. Plan of care endorsed. 2 units of blood transfused. CBC scheduled for 8pm. Stool collected.
--- NOTE | 2020-07-30 19:47 | Diagnostic Imaging Report ---
EXAM: XR Abdomen, 2 Views CLINICAL HISTORY: F/U TECHNIQUE: Frontal view of the abdomen/pelvis with upright view of the abdomen. COMPARISON: CT abdomen pelvis 07/28/2020 FINDINGS: Intraperitoneal space: No free air. Gastrointestinal tract: Prominent colonic loops again seen throughout the abdomen ileus similar appearance to comparison CT. This could represent ileus. Bones/joints: Lumbosacral spondylosis. IMPRESSION: Prominent colonic loops again seen throughout the abdomen ileus similar appearance to comparison CT. This could represent ileus.
--- NOTE | 2020-07-30 19:59 | Diagnostic Imaging Report ---
EXAM: XR Chest, 1 View CLINICAL HISTORY: SOB TECHNIQUE: Frontal view of the chest. COMPARISON: 07/28/2020 FINDINGS: Lungs: Unchanged extensive bilateral pulmonary consolidations likely represent multifocal pneumonia, noncardiogenic pulmonary edema, or potentially ARDS. Low lung volumes with bronchovascular crowding. Similar mild retrocardiac atelectasis without or with consolidation. Pleural space: Unremarkable. No pneumothorax. Heart: Unremarkable. No cardiomegaly. Mediastinum: Unremarkable. Bones/joints: No acute abnormality Tubes, lines and devices: Unchanged tracheostomy. IMPRESSION: 1. Unchanged tracheostomy. 2. Unchanged extensive bilateral pulmonary consolidations likely represent multifocal pneumonia, noncardiogenic pulmonary edema, or potentially ARDS. 3. Low lung volumes with bronchovascular crowding. 4. Similar mild retrocardiac atelectasis without or with consolidation.
--- NOTE | 2020-07-30 20:00 | NUR ---
NURSE NOTES: Patient in bed obtunded. trach to vent fi02 80% satting 100%. HOB elevated. RT reinflated cuff at this time. no s/s of acute distress noted.NPO. GT intact connected to low intermittent suction no gastric output noted at this time. Bowel sounds present with abdominal distention. Generalized edema +2 noted. Pulses palpable from radial. SB to SR on plate cleaner HR 56-66. Vera draining light dilcia, clear urine. Right upper arm PICC line intact, dressing clean and dry. call light within reach, bed low and locked. Seizure precaution maintained and observed. frequent oral suctioned provided. will continue plan of care.
[2020-07-30 20:31] LABS: BASOPHILS % (AUTO) 0.8 % (0.0-2.0); EOSINOPHILS % (AUTO) 1.8 % (0.0-3.0); HEMATOCRIT 28.5 % (42.0-52.0); LYMPHOCYTES % (AUTO) 11.5 % (20.0-45.0); MEAN CORPUSCULAR VOLUME 88 FL (80-99); MONOCYTES % (AUTO) 7.8 % (1.0-10.0); NEUTROPHILS % (AUTO) 78.1 % (45.0-75.0); PLATELET COUNT 184 K/UL (150-450); RED BLOOD COUNT 3.22 M/UL (4.70-6.10); RED CELL DISTRIBUTION WIDTH 18.5 % (11.6-14.8); WHITE BLOOD COUNT 13.8 K/UL (4.8-10.8)
[2020-07-30] MEDS: Dyna-Hex 2% Top Sol 2oz TOPIC SCH (21:12)
--- NOTE | 2020-07-30 21:24 | NUR ---
NURSE NOTES: Dr. Montanez made aware of Patients trach leaks again per Dr. Montanez call Dr. Lucas.will call Dr. Lucas.
--- NOTE | 2020-07-30 21:26 | NUR ---
NURSE NOTES: Dr. Lucas made aware of patient Trach leaks again Per Dr. Lucas he will change it in the morning.Charge nurse aware.
--- NOTE | 2020-07-30 23:20 | NUR ---
NURSE NOTES: Patient in bed obtunded. trach to vent fi02 80% satting 100%. HOB elevated. RT reinflated cuff at this time. no s/s of acute distress noted.NPO. GT intact connected to low intermittent suction no gastric output noted at this time. Bowel sounds present with abdominal distention. Generalized edema +2 noted. Pulses palpable from radial. SB on environmental monitoring specialist HR 50-66. Vera draining light dilcia, clear urine. Right upper arm PICC line intact, dressing clean and dry. call light within reach, bed low and locked. Seizure precaution maintained and observed. frequent oral suctioned provided. will continue plan of care.
[2020-07-31] VITALS (24 sets, daily range): BP systolic 114–136; BP diastolic 55–74
--- NOTE | 2020-07-31 01:20 | NUR ---
NURSE NOTES: No s/s of hypo/hyperglycemia. frequent visual checks continued.
[2020-07-31] MEDS: Zoysn 3.37gm in NS 100ML IVPB SCH (02:05)
--- NOTE | 2020-07-31 03:20 | NUR ---
NURSE NOTES: Bed bath given tolerated well.
--- NOTE | 2020-07-31 05:20 | NUR ---
NURSE NOTES: Patient in bed obtunded. trach to vent fi02 80% satting 100%. HOB elevated. RT reinflated cuff at this time. no s/s of acute distress noted.NPO. GT intact connected to low intermittent suction no gastric output noted at this time. Bowel sounds present with abdominal distention. Generalized edema +2 noted. Pulses palpable from radial. SB on background investigator HR 52-60. Vera draining light dilcia, clear urine. Right upper arm PICC line intact, dressing clean and dry. call light within reach, bed low and locked. Seizure precaution maintained and observed. frequent oral suctioned provided. will continue plan of care.
[2020-07-31 06:01] LABS: BASOPHILS % (AUTO) 0.4 % (0.0-2.0); EOSINOPHILS % (AUTO) 1.8 % (0.0-3.0); HEMATOCRIT 31.4 % (42.0-52.0); HEMOGLOBIN 9.7 G/DL (14.2-18.0); LYMPHOCYTES % (AUTO) 11.3 % (20.0-45.0); MEAN CORPUSCULAR VOLUME 92 FL (80-99); MONOCYTES % (AUTO) 7.9 % (1.0-10.0); NEUTROPHILS % (AUTO) 78.5 % (45.0-75.0); PLATELET COUNT 191 K/UL (150-450); RED BLOOD COUNT 3.41 M/UL (4.70-6.10); RED CELL DISTRIBUTION WIDTH 18.2 % (11.6-14.8); WHITE BLOOD COUNT 13.5 K/UL (4.8-10.8)
[2020-07-31] MEDS: NovoLOG Insulin Flexpen SUBQ SCH ×4 (06:30→21:29)
[2020-07-31 06:55] LABS: ANION GAP 6 mmol/L (5-15); BLOOD UREA NITROGEN 16 mg/dL (7-18); CALCIUM 8.4 MG/DL (8.5-10.1); CARBON DIOXIDE 24 MMOL/L (21-32); CHLORIDE 109 MMOL/L (98-107); CREATININE 0.9 MG/DL (0.55-1.30); POTASSIUM 4.5 MMOL/L (3.5-5.1); SODIUM 139 MMOL/L (136-145)
--- NOTE | 2020-07-31 07:20 | NUR ---
NURSE NOTES: Received patient from MANNY Cheney. Patient is observed bedside. Patient is contracted in all four extremities. Patient does respond to name however, this is an intermittent response. Patient primarily has an upward gaze with facial twitching. Pupils are 3mm BL with very sluggish reactions to light. Patient does not follow any commands however does respond to stimulus. Patient does not appear in any acute distress and is without facial grimacing. Patient is being monitored on the groundwater monitoring technician. VS HR 55 BP 124/65 RR 20 SPO2 100%. Patient is currently trach to vent with the following: Portex 8.0 AC 16 TV 500 FIO2 800% +5. Trach is scheduled to be changed this morning 2/2 leak. Upon auscultation, rhonchi is heard throughout. Patient is with copious oral secretions. Oral care was performed and patient was suctioned. Patient is with GT that was initially connect to low intermittent suction however, there is no stomach content therefore, GT has been clamped and LIS order has been dc'd. Belly sounds were auscultated and 3 of 4 quadrants were heard. Patient's belly is distended however, noted to be improved per report given that patient is with suspected ileus. Patient is with a Vera catheter that is draining cloudy yellow urine to gravity. meatal care was performed. Patient is with ZOE running D5NS @ 30 ml/hr, all ports are patent. Safety precautions are in place with bed locked in the lowest position, padded side rails for sz precautions, call light within reach. Will continue to monitor and carry out MD orders.
--- NOTE | 2020-07-31 08:00 | NUR ---
NURSE NOTES: Dr Montanez assessed patient bedside. Reported the facial twitching. Per MD, that is NL for patient. Also, can DC lower intermittent suction per MD and clamp the GT per MD. Also notified MD that trach will be changed today by Dr. Lucas. Will con't to monitor.
--- NOTE | 2020-07-31 09:27 | Critical Care Progress Note ---
Assessment/Plan Assessment/Plan IMPRESSION: ?Possible perforated viscus, possible free peritoneal air, probable sepsis, hyponatremia, acute renal failure, chronic respiratory failure, thickened colon diffuse pneumonia, elevated lactic dehydrogenase, abdominal distention, severe protein-calorie malnutrition, seizure disorder. pneumonia, anemia PLAN care noted monitor acid base transfuse as needed IV antibiotics cultures noted respiratory care Ventilatory support SNF meds- IV or SL for now supportive care monitor for seizures suction intermittent, GT..feeds per surgery no wean oxygen therapy prognosis critical surgical follow up monitor lytes and correct medications/laboratory data/nursing notes/ICU care reviewed in detail note reviewed and edited care discussed with RN and RT ICU time spent >40 minutes Critical Care - Subjective Interval Events: trach leak noted GT to suction on Vent ICU care reviewed ROS Limited/Unobtainable: Yes Condition: critical EKG Rhythm: Sinus Rhythm I&O: Intake and Output 07/30/20 07/31/20 19:00 07:00 Intake Total 1095.0 ml 952.5 ml Output Total 380 ml 255 ml Balance 715.0 ml 697.5 ml IV Total 1095.0 ml 952.5 ml Output Urine Total 380 ml 255 ml # Bowel Movements 1 2 Critical Care - Objective Last 24 Hour Vital Signs Date Time Temp Pulse Resp B/P (MAP) Pulse Ox O2 Delivery O2 Flow Rate FiO2 07/31/20 07:00 52 20 124/65 (84) 100 07/31/20 06:38 54 23 80 07/31/20 06:00 61 22 120/64 (82) 100 07/31/20 05:00 54 22 132/55 (80) 100 07/31/20 04:00 Mechanical Ventilator 07/31/20 04:00 80.0 07/31/20 04:00 98.0 59 22 125/74 (91) 100 07/31/20 04:00 55 07/31/20 03:46 56 22 80 07/31/20 03:00 83 31 114/61 (78) 100 07/31/20 02:00 56 24 121/70 (87) 100 07/31/20 01:00 52 23 123/62 (82) 100 07/31/20 00:00 52 07/31/20 00:00 Mechanical Ventilator 07/31/20 00:00 99.0 53 23 116/63 (80) 100 11/21/20 00:00 80.0 07/30/20 23:00 54 23 80 07/30/20 23:00 53 24 115/62 (79) 100 07/30/20 22:00 55 24 113/62 (79) 100 07/30/20 21:00 63 27 128/67 (87) 100 07/30/20 20:00 99.4 54 19 100/54 (69) 100 07/30/20 20:00 68 07/30/20 20:00 80.0 07/30/20 20:00 Mechanical Ventilator 07/30/20 19:23 70 24 80 07/30/20 19:00 69 26 110/54 (72) 100 07/30/20 18:00 99.3 61 116/60 (78) 97 07/30/20 17:10 57 26 80 07/30/20 17:00 58 118/58 (78) 100 07/30/20 16:02 60 07/30/20 16:00 115/57 (76) 100 07/30/20 16:00 80.0 07/30/20 16:00 Mechanical Ventilator 07/30/20 15:10 61 23 80 07/30/20 15:00 98.6 56 21 114/54 (74) 100 07/30/20 14:00 60 23 110/55 (73) 100 07/30/20 13:20 88 20 80 07/30/20 13:00 58 21 125/65 (85) 100 07/30/20 12:20 99.7 73 24 122/60 (80) 100 07/30/20 12:00 Mechanical Ventilator 07/30/20 12:00 80.0 07/30/20 12:00 99.0 74 25 118/57 (77) 100 07/30/20 11:56 70 07/30/20 10:35 76 19 100 Mechanical Ventilator 80 78 20 80 07/30/20 10:00 73 23 113/66 (82) 100 Labs: Labs Test 07/28/20 12:00 07/28/20 12:48 07/28/20 12:50 07/29/20 03:50 White Blood Count 12.0 K/UL (4.8-10.8) 16.3 K/UL (4.8-10.8) Red Blood Count 3.36 M/UL (4.70-6.10) 3.18 M/UL (4.70-6.10) Hemoglobin 9.0 G/DL (14.2-18.0) 8.5 G/DL (14.2-18.0) Hematocrit 29.8 % (42.0-52.0) 28.3 % (42.0-52.0) Mean Corpuscular Volume 89 FL (80-99) 89 FL (80-99) Mean Corpuscular Hemoglobin 26.9 PG (27.0-31.0) 26.9 PG (27.0-31.0) Mean Corpuscular Hemoglobin Concent 30.3 G/DL (32.0-36.0) 30.2 G/DL (32.0-36.0) Red Cell Distribution Width 19.8 % (11.6-14.8) 19.8 % (11.6-14.8) Platelet Count 203 K/UL (150-450) 220 K/UL (150-450) Mean Platelet Volume 10.0 FL (6.5-10.1) 9.8 FL (6.5-10.1) Neutrophils (%) (Auto) 74.5 % (45.0-75.0) 84.7 % (45.0-75.0) Lymphocytes (%) (Auto) 15.4 % (20.0-45.0) 8.3 % (20.0-45.0) Monocytes (%) (Auto) 8.0 % (1.0-10.0) 5.6 % (1.0-10.0) Eosinophils (%) (Auto) 1.8 % (0.0-3.0) 1.1 % (0.0-3.0) Basophils (%) (Auto) 0.4 % (0.0-2.0) 0.3 % (0.0-2.0) Arterial Blood pH 7.412 (7.350-7.450) Arterial Blood Partial Pressure CO2 41.7 mmHg (35.0-45.0) Arterial Blood Partial Pressure O2 115.2 mmHg (75.0-100.0) Arterial Blood HCO3 26.0 mmol/L (22.0-26.0) Arterial Blood Oxygen Saturation 98.7 % (95-100) Arterial Blood Base Excess 1.2 (-2-2) Balta Test Positive D-Dimer 1.88 mg/L FEU (0.00-0.49) Urine Color Pale yellow Urine Appearance Clear Urine pH 5 (4.5-8.0) Urine Specific [place] 1.010 (1.005-1.035) Urine Protein Negative (NEGATIVE) Urine Glucose (UA) Negative (NEGATIVE) Urine Ketones Negative (NEGATIVE) Urine Blood Negative (NEGATIVE) Urine Nitrite Negative (NEGATIVE) Urine Bilirubin Negative (NEGATIVE) Urine Urobilinogen Normal MG/DL (0.0-1.0) Urine Leukocyte Esterase 1+ (NEGATIVE) Urine RBC 0 /HPF (0 - 0) Urine WBC 10-15 /HPF (0 - 0) Urine Squamous Epithelial Cells None /LPF (NONE/OCC) Urine Bacteria Few /HPF (NONE) Sodium Level 123 MMOL/L (136-145) 131 MMOL/L (136-145) Potassium Level 5.1 MMOL/L (3.5-5.1) 4.5 MMOL/L (3.5-5.1) Chloride Level 90 MMOL/L (98-107) 99 MMOL/L (98-107) Carbon Dioxide Level 27 MMOL/L (21-32) 26 MMOL/L (21-32) Anion Gap 6 mmol/L (5-15) 6 mmol/L (5-15) Blood Urea Nitrogen 37 mg/dL (7-18) 24 mg/dL (7-18) Creatinine 1.3 MG/DL (0.55-1.30) 1.2 MG/DL (0.55-1.30) Estimat Glomerular Filtration Rate > 60 mL/min (>60) > 60 mL/min (>60) Glucose Level 134 MG/DL (74-106) 63 MG/DL (74-106) Lactic Acid Level 2.00 mmol/L (0.4-2.0) 1.00 mmol/L (0.4-2.0) Calcium Level 9.3 MG/DL (8.5-10.1) 8.7 MG/DL (8.5-10.1) Magnesium Level 2.6 MG/DL (1.8-2.4) Ferritin 143 NG/ML (8-388) Total Bilirubin 0.3 MG/DL (0.2-1.0) Aspartate Amino Transf (AST/SGOT) 25 U/L (15-37) Alanine Aminotransferase (ALT/SGPT) 24 U/L (12-78) Alkaline Phosphatase 134 U/L (46-116) Lactate Dehydrogenase 340 U/L (81-234) Total Creatine Kinase 81 U/L (26-308) Creatine Kinase MB 1.6 NG/ML (0.0-3.6) Creatine Kinase MB Relative Index 1.9 Troponin I 0.000 ng/mL (0.000-0.056) C-Reactive Protein, Quantitative 39.2 mg/dL (0.00-0.90) Pro-B-Type Natriuretic Peptide 1294 pg/mL (0-125) Total Protein 9.3 G/DL (6.4-8.2) Albumin 2.0 G/DL (3.4-5.0) Globulin 7.3 g/dL Albumin/Globulin Ratio 0.3 (1.0-2.7) Test 07/29/20 05:53 07/29/20 17:01 07/29/20 21:04 07/30/20 04:00 POC Whole Blood Glucose 71 MG/DL (74-106) 128 MG/DL (74-106) White Blood Count 12.6 K/UL (4.8-10.8) Red Blood Count 2.52 M/UL (4.70-6.10) Hemoglobin 6.8 G/DL (14.2-18.0) Hematocrit 22.7 % (42.0-52.0) Mean Corpuscular Volume 90 FL (80-99) Mean Corpuscular Hemoglobin 27.1 PG (27.0-31.0) Mean Corpuscular Hemoglobin Concent 30.0 G/DL (32.0-36.0) Red Cell Distribution Width 19.7 % (11.6-14.8) Platelet Count 181 K/UL (150-450) Mean Platelet Volume 8.5 FL (6.5-10.1) Neutrophils (%) (Auto) % (45.0-75.0) Lymphocytes (%) (Auto) % (20.0-45.0) Monocytes (%) (Auto) % (1.0-10.0) Eosinophils (%) (Auto) % (0.0-3.0) Basophils (%) (Auto) % (0.0-2.0) Differential Total Cells Counted 100 Neutrophils % (Manual) 75 % (45-75) Lymphocytes % (Manual) 14 % (20-45) Monocytes % (Manual) 10 % (1-10) Eosinophils % (Manual) 1 % (0-3) Basophils % (Manual) 0 % (0-2) Band Neutrophils 0 % (0-8) Platelet Estimate Adequate Platelet Morphology Normal Hypochromasia 1+ Anisocytosis 2+ Sodium Level 138 MMOL/L (136-145) Potassium Level 4.7 MMOL/L (3.5-5.1) Chloride Level 107 MMOL/L (98-107) Carbon Dioxide Level 24 MMOL/L (21-32) Anion Gap 7 mmol/L (5-15) Blood Urea Nitrogen 19 mg/dL (7-18) Creatinine 1.2 MG/DL (0.55-1.30) Estimat Glomerular Filtration Rate > 60 mL/min (>60) Glucose Level 151 MG/DL (74-106) Calcium Level 8.3 MG/DL (8.5-10.1) Vancomycin Level Trough 7.2 ug/mL (5.0-12.0) Test 07/30/20 04:22 07/30/20 12:23 07/30/20 17:55 07/30/20 18:50 POC Whole Blood Glucose 152 MG/DL (74-106) 151 MG/DL (74-106) Test 07/30/20 20:20 07/30/20 21:10 07/31/20 05:05 White Blood Count 13.8 K/UL (4.8-10.8) 13.5 K/UL (4.8-10.8) Red Blood Count 3.22 M/UL (4.70-6.10) 3.41 M/UL (4.70-6.10) Hemoglobin 9.0 G/DL (14.2-18.0) 9.7 G/DL (14.2-18.0) Hematocrit 28.5 % (42.0-52.0) 31.4 % (42.0-52.0) Mean Corpuscular Volume 88 FL (80-99) 92 FL (80-99) Mean Corpuscular Hemoglobin 28.1 PG (27.0-31.0) 28.4 PG (27.0-31.0) Mean Corpuscular Hemoglobin Concent 31.7 G/DL (32.0-36.0) 30.8 G/DL (32.0-36.0) Red Cell Distribution Width 18.5 % (11.6-14.8) 18.2 % (11.6-14.8) Platelet Count 184 K/UL (150-450) 191 K/UL (150-450) Mean Platelet Volume 6.8 FL (6.5-10.1) 7.9 FL (6.5-10.1) Neutrophils (%) (Auto) 78.1 % (45.0-75.0) 78.5 % (45.0-75.0) Lymphocytes (%) (Auto) 11.5 % (20.0-45.0) 11.3 % (20.0-45.0) Monocytes (%) (Auto) 7.8 % (1.0-10.0) 7.9 % (1.0-10.0) Eosinophils (%) (Auto) 1.8 % (0.0-3.0) 1.8 % (0.0-3.0) Basophils (%) (Auto) 0.8 % (0.0-2.0) 0.4 % (0.0-2.0) Sodium Level 139 MMOL/L (136-145) Potassium Level 4.5 MMOL/L (3.5-5.1) Chloride Level 109 MMOL/L (98-107) Carbon Dioxide Level 24 MMOL/L (21-32) Anion Gap 6 mmol/L (5-15) Blood Urea Nitrogen 16 mg/dL (7-18) Creatinine 0.9 MG/DL (0.55-1.30) Estimat Glomerular Filtration Rate > 60 mL/min (>60) Glucose Level 185 MG/DL (74-106) Calcium Level 8.4 MG/DL (8.5-10.1) Objective: GENERAL: An ill-appearing male, chronically ill. HEENT: Negative. Tracheostomy midline. The patient is with chronic tongue protrusion. LUNGS: Coarse breath sounds. moderate breath sounds CARDIAC: S1, S2. Regular rate and rhythm. ABDOMEN: Distended. Poor bowel sounds. EXTREMITIES: No cyanosis or clubbing. There is mild edema. NEUROLOGIC: Poorly responsive to pain. Micro: Microbiology Date/Time Source Procedure Growth Status 07/30/20 18:50 Stool Clostridium difficile Toxin Assay - Final Complete 07/29/20 19:00 Sputum Gram Stain - Final Resulted 07/29/20 19:00 Sputum Culture - Preliminary Acinetobacter Baumannii Complx Resulted 07/28/20 13:20 Rectum - Final NO CARBAPENEM-RESISTANT ENTEROBACTERI... Complete 07/28/20 13:20 Rectum VRE Culture - Final NO VANCOMYCIN RESISTANT ENTEROCOCCUS ... Complete 07/28/20 13:20 Nasal Nares MRSA Culture - Final NO METHICILLIN RESISTANT STAPH AUREUS... Complete 07/28/20 12:50 Urine,Clean Catch Urine Culture - Preliminary NO GROWTH Resulted 07/28/20 12:50 Nasopharynx SARS-CoV-2 RdRp Gene Assay - Final Complete 07/28/20 12:50 Nasal Nares - Final Complete 07/28/20 12:50 Nasal Nares - Final Complete 07/28/20 12:50 Blood Blood Culture - Preliminary NO GROWTH AFTER 48 HOURS Resulted 07/28/20 12:40 Blood Blood Culture - Preliminary NO GROWTH AFTER 48 HOURS Resulted Accucheck: 137 Bakari Montanez MD Jul 31, 2020 09:27
[2020-07-31] MEDS: levETIRAcetam 1,000mg/NS100ml 100 ML IVPB SCH ×2 (09:41→21:25)
[2020-07-31] MEDS: Midodrine 10mg tab ORAL SCH ×3 (09:42→17:12)
[2020-07-31] MEDS: Pantoprazole Inj IVP SCH (09:43)
--- NOTE | 2020-07-31 09:45 | NUR ---
NURSE NOTES: Patient SB 47-55. Will HOLD Midrodrine to check for improvement of HR. BP 124/62. Patient is maintaining stable BP however SB con't. Will con't to monitor.
--- NOTE | 2020-07-31 10:05 | General Progress Note ---
Subjective ROS Limited/Unobtainable: No Constitutional: Reports: malaise, weakness HEENT: Reports: no symptoms Cardiovascular: Reports: no symptoms Respiratory: Reports: cough, shortness of breath, sputum Gastrointestinal/Abdominal: Reports: difficulty swallowing Genitourinary: Reports: no symptoms Neurologic/Psychiatric: Reports: pre-existing deficit, seizure Endocrine: Reports: no symptoms Hematologic/Lymphatic: Reports: anemia Allergies: Coded Allergies: No Known Allergies (Unverified , 07/04/18) All Systems: reviewed and negative except above Subjective no overnight events. Discussed with night RN. s/p 2 units. no reports of bleeding. stool ob pending. on abx. sputum with acinetobacter Objective Last 24 Hour Vital Signs Date Time Temp Pulse Resp B/P (MAP) Pulse Ox O2 Delivery O2 Flow Rate FiO2 07/31/20 07:00 52 20 124/65 (84) 100 07/31/20 06:38 54 23 80 07/31/20 06:00 61 22 120/64 (82) 100 07/31/20 05:00 54 22 132/55 (80) 100 07/31/20 04:00 Mechanical Ventilator 07/31/20 04:00 80.0 07/31/20 04:00 98.0 59 22 125/74 (91) 100 07/31/20 04:00 55 07/31/20 03:46 56 22 80 07/31/20 03:00 83 31 114/61 (78) 100 07/31/20 02:00 56 24 121/70 (87) 100 07/31/20 01:00 52 23 123/62 (82) 100 07/31/20 00:00 52 07/31/20 00:00 Mechanical Ventilator 07/31/20 00:00 99.0 53 23 116/63 (80) 100 07/31/20 00:00 80.0 07/30/20 23:00 54 23 80 07/30/20 23:00 53 24 115/62 (79) 100 07/30/20 22:00 55 24 113/62 (79) 100 07/30/20 21:00 63 27 128/67 (87) 100 07/30/20 20:00 99.4 54 19 100/54 (69) 100 07/30/20 20:00 68 07/30/20 20:00 80.0 07/30/20 20:00 Mechanical Ventilator 07/30/20 19:23 70 24 80 07/30/20 19:00 69 26 110/54 (72) 100 07/30/20 18:00 99.3 61 116/60 (78) 97 07/30/20 17:10 57 26 80 07/30/20 17:00 58 118/58 (78) 100 07/30/20 16:02 60 07/30/20 16:00 115/57 (76) 100 07/30/20 16:00 80.0 07/30/20 16:00 Mechanical Ventilator 07/30/20 15:10 61 23 80 07/30/20 15:00 98.6 56 21 114/54 (74) 100 07/30/20 14:00 60 23 110/55 (73) 100 07/30/20 13:20 88 20 80 07/30/20 13:00 58 21 125/65 (85) 100 07/30/20 12:20 99.7 73 24 122/60 (80) 100 07/30/20 12:00 Mechanical Ventilator 07/30/20 12:00 80.0 07/30/20 12:00 99.0 74 25 118/57 (77) 100 07/30/20 11:56 70 07/30/20 10:35 76 19 100 Mechanical Ventilator 80 78 20 80 Intake and Output 07/30/20 07/31/20 19:00 07:00 Intake Total 1095.0 ml 952.5 ml Output Total 380 ml 255 ml Balance 715.0 ml 697.5 ml IV Total 1095.0 ml 952.5 ml Output Urine Total 380 ml 255 ml # Bowel Movements 1 2 Laboratory Tests 07/30/20 12:23: POC Whole Blood Glucose 151H 07/30/20 17:55: POC Whole Blood Glucose [Pending] 07/30/20 18:50: Stool Occult Blood [Pending] 07/30/20 20:20: White Blood Count 13.8H, Red Blood Count 3.22L, Hemoglobin 9.0#L, Hematocrit 28.5L, Mean Corpuscular Volume 88, Mean Corpuscular Hemoglobin 28.1, Mean Corpus cular Hemoglobin Concent 31.7L, Red Cell Distribution Width 18.5H, Platelet Count 184, Mean Platelet Volume 6.8, Neutrophils (%) (Auto) 78.1H, Lymphocytes (%) (Auto) 11.5L, Monocytes (%) (Auto) 7.8, Eosinophils (%) (Auto) 1.8, Basophils (%) (Auto) 0.8 07/30/20 21:10: POC Whole Blood Glucose [Pending] 07/31/20 05:05: White Blood Count 13.5H, Red Blood Count 3.41L, Hemoglobin 9.7L, Hematocrit 31.4L, Mean Corpuscular Volume 92, Mean Corpuscular Hemoglobin 28.4, Mean Corpuscular Hemoglobin Concent 30.8L, Red Cell Distribution Width 18.2H, Platel et Count 191, Mean Platelet Volume 7.9, Neutrophils (%) (Auto) 78.5H, Lymphocytes (%) (Auto) 11.3L, Monocytes (%) (Auto) 7.9, Eosinophils (%) (Auto) 1.8, Basophils (%) (Auto) 0.4, Sodium Level 139, Potassium Level 4.5, Chloride Level 109H, Carbon Dioxide Level 24, Anion Gap 6, Blood Urea Nitrogen 16, Creatinine 0.9, Estimat Glomerular Filtration Rate > 60, Glucose Level 185H, Calcium Level 8.4L Height (Feet): 5 Height (Inches): 11.00 Weight (Pounds): 180 General Appearance: WD/WN, alert, confused Neck: supple Cardiovascular: normal rate, regular rhythm Respiratory/Chest: rhonchi - bilaterally Abdomen: normal bowel sounds, non tender, soft, no mass Neurologic: disoriented, aphasia Skin: normal pigmentation Assessment/Plan Problem List: (1) Sepsis ICD Codes: A41.9 - Sepsis, unspecified organism SNOMED: 42300856 (2) Pneumonia ICD Codes: J18.9 - Pneumonia, unspecified organism SNOMED: 446431910 (3) Leukocytosis ICD Codes: D72.829 - Elevated white blood cell count, unspecified SNOMED: 493599407, 730331915 (4) POPPY (acute kidney injury) ICD Codes: N17.9 - Acute kidney failure, unspecified SNOMED: 9944490, 74440101 (5) Dyspnea ICD Codes: R06.00 - Dyspnea, unspecified SNOMED: 131730161 (6) Respiratory distress ICD Codes: R06.03 - Acute respiratory distress SNOMED: 579106114 Status: stable, not improved Assessment/Plan: IV fluids and boluses as needed Continue broad-spectrum IV antibiotics PICC line for antibiotics, IV fluids and possibly pressors Monitor H&H Transfuse as needed PPI treatment Stool for occult blood Continue vent support Breathing treatments and suctioning as needed Monitor electrolytes Turn every 2 hours Continue seizure treatment Tube feeds Chano Galeana MD Jul 31, 2020 10:05
--- NOTE | 2020-07-31 11:40 | Infectious Diseases Prog Note ---
Assessment/Plan Assessment/Plan A 1. Acinetobacter pneumonia COVID 19 negative 2. Ventilator dependent respiratory failure 3. colitis 4. UTI 5. Diabetes mellitus 6. Hypertension 7. COPD P 1. Change Zosyn to Unasyn 2. Negative stool for c.diff 3. will follow up cultures Subjective ROS Limited/Unobtainable: Yes Constitutional: Denies: fever Allergies: Coded Allergies: No Known Allergies (Unverified , 07/04/18) Objective Last 24 Hour Vital Signs Date Time Temp Pulse Resp B/P (MAP) Pulse Ox O2 Delivery O2 Flow Rate FiO2 07/31/20 08:00 80.0 07/31/20 07:00 52 20 124/65 (84) 100 07/31/20 06:38 54 23 80 07/31/20 06:00 61 22 120/64 (82) 100 07/31/20 05:00 54 22 132/55 (80) 100 07/31/20 04:00 Mechanical Ventilator 07/31/20 04:00 80.0 07/31/20 04:00 98.0 59 22 125/74 (91) 100 07/31/20 04:00 55 07/31/20 03:46 56 22 80 07/31/20 03:00 83 31 114/61 (78) 100 07/31/20 02:00 56 24 121/70 (87) 100 07/31/20 01:00 52 23 123/62 (82) 100 07/31/20 00:00 52 07/31/20 00:00 Mechanical Ventilator 07/31/20 00:00 99.0 53 23 116/63 (80) 100 07/31/20 00:00 80.0 07/30/20 23:00 54 23 80 07/30/20 23:00 53 24 115/62 (79) 100 07/30/20 22:00 55 24 113/62 (79) 100 07/30/20 21:00 63 27 128/67 (87) 100 07/30/20 20:00 99.4 54 19 100/54 (69) 100 07/30/20 20:00 68 07/30/20 20:00 80.0 07/30/20 20:00 Mechanical Ventilator 07/30/20 19:23 70 24 80 07/30/20 19:00 69 26 110/54 (72) 100 07/30/20 18:00 99.3 61 116/60 (78) 97 07/30/20 17:10 57 26 80 07/30/20 17:00 58 118/58 (78) 100 07/30/20 16:02 60 07/30/20 16:00 115/57 (76) 100 07/30/20 16:00 80.0 07/30/20 16:00 Mechanical Ventilator 07/30/20 15:10 61 23 80 07/30/20 15:00 98.6 56 21 114/54 (74) 100 07/30/20 14:00 60 23 110/55 (73) 100 07/30/20 13:20 88 20 80 07/30/20 13:00 58 21 125/65 (85) 100 07/30/20 12:20 99.7 73 24 122/60 (80) 100 07/30/20 12:00 Mechanical Ventilator 07/30/20 12:00 80.0 07/30/20 12:00 99.0 74 25 118/57 (77) 100 07/30/20 11:56 70 Height (Feet): 5 Height (Inches): 11.00 Weight (Pounds): 180 HEENT: status post trach Respiratory/Chest: lungs clear, other - on ventilator Cardiovascular: bradycardia, other - R arm PICC line Abdomen: soft, non tender, other - GT feeding Extremities: other - general edema Neurologic/Psychiatric: aphasia, other - twiching movement of tongue Microbiology Date/Time Source Procedure Growth Status 07/30/20 18:50 Stool Clostridium difficile Toxin Assay - Final Complete 07/29/20 19:00 Sputum Gram Stain - Final Resulted 07/29/20 19:00 Sputum Culture - Preliminary Acinetobacter Baumannii Complx Resulted 07/28/20 13:20 Rectum - Final NO CARBAPENEM-RESISTANT ENTEROBACTERI... Complete 07/28/20 13:20 Rectum VRE Culture - Final NO VANCOMYCIN RESISTANT ENTEROCOCCUS ... Complete 07/28/20 13:20 Nasal Nares MRSA Culture - Final NO METHICILLIN RESISTANT STAPH AUREUS... Complete 07/28/20 12:50 Urine,Clean Catch Urine Culture - Preliminary NO GROWTH Resulted 07/28/20 12:50 Nasopharynx SARS-CoV-2 RdRp Gene Assay - Final Complete 07/28/20 12:50 Nasal Nares - Final Complete 07/28/20 12:50 Nasal Nares - Final Complete 07/28/20 12:50 Blood Blood Culture - Preliminary NO GROWTH AFTER 48 HOURS Resulted 07/28/20 12:40 Blood Blood Culture - Preliminary NO GROWTH AFTER 48 HOURS Resulted Laboratory Tests Test 07/30/20 12:23 07/30/20 17:55 07/30/20 18:50 07/30/20 20:20 POC Whole Blood Glucose 151 MG/DL (74-106) H Pending Stool Occult Blood Pending White Blood Count 13.8 K/UL (4.8-10.8) H Red Blood Count 3.22 M/UL (4.70-6.10) L Hemoglobin 9.0 G/DL (14.2-18.0) #L Hematocrit 28.5 % (42.0-52.0) L Mean Corpuscular Volume 88 FL (80-99) Mean Corpuscular Hemoglobin 28.1 PG (27.0-31.0) Mean Corpuscular Hemoglobin Concent 31.7 G/DL (32.0-36.0) L Red Cell Distribution Width 18.5 % (11.6-14.8) H Platelet Count 184 K/UL (150-450) Mean Platelet Volume 6.8 FL (6.5-10.1) Neutrophils (%) (Auto) 78.1 % (45.0-75.0) H Lymphocytes (%) (Auto) 11.5 % (20.0-45.0) L Monocytes (%) (Auto) 7.8 % (1.0-10.0) Eosinophils (%) (Auto) 1.8 % (0.0-3.0) Basophils (%) (Auto) 0.8 % (0.0-2.0) Test 07/30/20 21:10 07/31/20 05:05 POC Whole Blood Glucose Pending White Blood Count 13.5 K/UL (4.8-10.8) H Red Blood Count 3.41 M/UL (4.70-6.10) L Hemoglobin 9.7 G/DL (14.2-18.0) L Hematocrit 31.4 % (42.0-52.0) L Mean Corpuscular Volume 92 FL (80-99) Mean Corpuscular Hemoglobin 28.4 PG (27.0-31.0) Mean Corpuscular Hemoglobin Concent 30.8 G/DL (32.0-36.0) L Red Cell Distribution Width 18.2 % (11.6-14.8) H Platelet Count 191 K/UL (150-450) Mean Platelet Volume 7.9 FL (6.5-10.1) Neutrophils (%) (Auto) 78.5 % (45.0-75.0) H Lymphocytes (%) (Auto) 11.3 % (20.0-45.0) L Monocytes (%) (Auto) 7.9 % (1.0-10.0) Eosinophils (%) (Auto) 1.8 % (0.0-3.0) Basophils (%) (Auto) 0.4 % (0.0-2.0) Sodium Level 139 MMOL/L (136-145) Potassium Level 4.5 MMOL/L (3.5-5.1) Chloride Level 109 MMOL/L (98-107) H Carbon Dioxide Level 24 MMOL/L (21-32) Anion Gap 6 mmol/L (5-15) Blood Urea Nitrogen 16 mg/dL (7-18) Creatinine 0.9 MG/DL (0.55-1.30) Estimat Glomerular Filtration Rate > 60 mL/min (>60) Glucose Level 185 MG/DL (74-106) H Calcium Level 8.4 MG/DL (8.5-10.1) L Current Medications Medications (Trade) Dose Ordered Sig/Derrick Route PRN Reason Start Time Stop Time Status Last Admin Dose Admin Acetaminophen (Tylenol) 650 mg Q4H PRN RECTAL Mild Pain (Pain Scale 1-3) 07/28/20 21:15 08/27/20 21:14 Chlorhexidine Gluconate (Gwendolyn-Hex 2%) 1 applic DAILY@1999 TOPIC 07/30/20 20:00 10/28/20 19:59 07/30/20 21:12 Clonidine HCl (Catapres Tab) 0.1 mg Q4H PRN ORAL For High Blood Pressure 07/28/20 21:15 10/26/20 21:14 Dextrose (Dextrose 50%) 25 ml Q30M PRN IV Hypoglycemia 07/28/20 21:15 10/26/20 21:14 Dextrose (Dextrose 50%) 50 ml Q30M PRN IV Hypoglycemia 07/28/20 21:15 10/26/20 21:14 Dextrose/Sodium Chloride 1,000 ml @ 30 mls/hr Q24H IV 07/30/20 15:45 08/29/20 15:44 07/30/20 17:49 Heparin Sodium/ Sodium Chloride (Heparin 1000 units/500ml Premix) 1,000 unit ONCE PRN IV PICC line placement 07/30/20 06:45 08/01/20 06:44 Insulin Aspart (NovoLOG) BEFORE MEALS AND HS SUBQ 07/29/20 06:30 10/27/20 06:29 Levetiracetam 100 ml @ 400 mls/hr Q12HR IVPB 07/28/20 21:15 10/26/20 21:14 07/31/20 09:41 Lidocaine HCl (Xylocaine 1% 30ml) 30 ml ONCE PRN INJ PICC line 07/30/20 06:45 08/01/20 06:44 Midodrine (Pro-Amatine) 10 mg THREE TIMES A DAY ORAL 07/29/20 21:30 10/27/20 21:29 07/30/20 09:07 Pantoprazole (Protonix) 40 mg DAILY IVP 07/29/20 09:00 08/28/20 08:59 07/31/20 09:43 Piperacillin Sod/ Tazobactam Sod 3.375 gm/Sodium Chloride 110 ml @ 27.5 mls/hr Q8H IVPB 07/29/20 11:00 08/05/20 04:59 07/31/20 02:05 Carlos Amaro MD Jul 31, 2020 11:40
--- NOTE | 2020-07-31 11:57 | Surgery Progress Note ---
Surgery Progress Note Subjective Additional Comments leukocytosis h/h stable no n/v abd exam improved trach leak needs change Objective Last 24 Hour Vital Signs Date Time Temp Pulse Resp B/P (MAP) Pulse Ox O2 Delivery O2 Flow Rate FiO2 07/31/20 08:00 80.0 07/31/20 07:00 52 20 124/65 (84) 100 07/31/20 06:38 54 23 80 07/31/20 06:00 61 22 120/64 (82) 100 07/31/20 05:00 54 22 132/55 (80) 100 07/31/20 04:00 Mechanical Ventilator 07/31/20 04:00 80.0 07/31/20 04:00 98.0 59 22 125/74 (91) 100 07/31/20 04:00 55 07/31/20 03:46 56 22 80 07/31/20 03:00 83 31 114/61 (78) 100 07/31/20 02:00 56 24 121/70 (87) 100 07/31/20 01:00 52 23 123/62 (82) 100 07/31/20 00:00 52 07/31/20 00:00 Mechanical Ventilator 07/31/20 00:00 99.0 53 23 116/63 (80) 100 07/31/20 00:00 80.0 07/30/20 23:00 54 23 80 07/30/20 23:00 53 24 115/62 (79) 100 07/30/20 22:00 55 24 113/62 (79) 100 07/30/20 21:00 63 27 128/67 (87) 100 07/30/20 20:00 99.4 54 19 100/54 (69) 100 07/30/20 20:00 68 07/30/20 20:00 80.0 07/30/20 20:00 Mechanical Ventilator 07/30/20 19:23 70 24 80 07/30/20 19:00 69 26 110/54 (72) 100 07/30/20 18:00 99.3 61 116/60 (78) 97 07/30/20 17:10 57 26 80 07/30/20 17:00 58 118/58 (78) 100 07/30/20 16:02 60 07/30/20 16:00 115/57 (76) 100 07/30/20 16:00 80.0 07/30/20 16:00 Mechanical Ventilator 07/30/20 15:10 61 23 80 07/30/20 15:00 98.6 56 21 114/54 (74) 100 07/30/20 14:00 60 23 110/55 (73) 100 07/30/20 13:20 88 20 80 07/30/20 13:00 58 21 125/65 (85) 100 07/30/20 12:20 99.7 73 24 122/60 (80) 100 07/30/20 12:00 Mechanical Ventilator 07/30/20 12:00 80.0 07/30/20 12:00 99.0 74 25 118/57 (77) 100 I&O Intake and Output 07/30/20 07/31/20 19:00 07:00 Intake Total 1095.0 ml 952.5 ml Output Total 380 ml 255 ml Balance 715.0 ml 697.5 ml IV Total 1095.0 ml 952.5 ml Output Urine Total 380 ml 255 ml # Bowel Movements 1 2 Dressing: saturated Cardiovascular: RSR Respiratory: decreased breath sounds Abdomen: soft, non-tender, present bowel sounds Extremities: no tenderness, no cyanosis Laboratory Tests Test 07/30/20 12:23 07/30/20 17:55 07/30/20 18:50 07/30/20 20:20 POC Whole Blood Glucose 151 MG/DL (74-106) H Pending Stool Occult Blood Pending White Blood Count 13.8 K/UL (4.8-10.8) H Red Blood Count 3.22 M/UL (4.70-6.10) L Hemoglobin 9.0 G/DL (14.2-18.0) #L Hematocrit 28.5 % (42.0-52.0) L Mean Corpuscular Volume 88 FL (80-99) Mean Corpuscular Hemoglobin 28.1 PG (27.0-31.0) Mean Corpuscular Hemoglobin Concent 31.7 G/DL (32.0-36.0) L Red Cell Distribution Width 18.5 % (11.6-14.8) H Platelet Count 184 K/UL (150-450) Mean Platelet Volume 6.8 FL (6.5-10.1) Neutrophils (%) (Auto) 78.1 % (45.0-75.0) H Lymphocytes (%) (Auto) 11.5 % (20.0-45.0) L Monocytes (%) (Auto) 7.8 % (1.0-10.0) Eosinophils (%) (Auto) 1.8 % (0.0-3.0) Basophils (%) (Auto) 0.8 % (0.0-2.0) Test 07/30/20 21:10 07/31/20 05:05 POC Whole Blood Glucose Pending White Blood Count 13.5 K/UL (4.8-10.8) H Red Blood Count 3.41 M/UL (4.70-6.10) L Hemoglobin 9.7 G/DL (14.2-18.0) L Hematocrit 31.4 % (42.0-52.0) L Mean Corpuscular Volume 92 FL (80-99) Mean Corpuscular Hemoglobin 28.4 PG (27.0-31.0) Mean Corpuscular Hemoglobin Concent 30.8 G/DL (32.0-36.0) L Red Cell Distribution Width 18.2 % (11.6-14.8) H Platelet Count 191 K/UL (150-450) Mean Platelet Volume 7.9 FL (6.5-10.1) Neutrophils (%) (Auto) 78.5 % (45.0-75.0) H Lymphocytes (%) (Auto) 11.3 % (20.0-45.0) L Monocytes (%) (Auto) 7.9 % (1.0-10.0) Eosinophils (%) (Auto) 1.8 % (0.0-3.0) Basophils (%) (Auto) 0.4 % (0.0-2.0) Sodium Level 139 MMOL/L (136-145) Potassium Level 4.5 MMOL/L (3.5-5.1) Chloride Level 109 MMOL/L (98-107) H Carbon Dioxide Level 24 MMOL/L (21-32) Anion Gap 6 mmol/L (5-15) Blood Urea Nitrogen 16 mg/dL (7-18) Creatinine 0.9 MG/DL (0.55-1.30) Estimat Glomerular Filtration Rate > 60 mL/min (>60) Glucose Level 185 MG/DL (74-106) H Calcium Level 8.4 MG/DL (8.5-10.1) L Plan Problems: (1) Sepsis Assessment & Plan: 75M. cxr with possible free air. ct done and noted. abd distended. exam limited leukocytosis abnormal labs improving with fluids trach malfunction now improved on vent support cont current care will monitor and follow with recs PICC line trend labs transfuse prbc prn trach leak needs trach change ABDOMEN: Liver: Unremarkable. Gallbladder and bile ducts: Unremarkable. No calcified stones. Pancreas: Unremarkable. Spleen: Unremarkable. Adrenals: Unremarkable. Kidneys and ureters: Unremarkable. No hydronephrosis. Stomach and bowel: Mildly thickened sigmoid colon which may be underdistention, chronic, colitis, versus lesion. Colonic air-distention which may be ileus. No bowel obstruction or diverticulitis. PELVIS: Appendix: No findings to suggest acute appendicitis. Bladder: Thickened bladder which may be chronic, cystitis, versus lesion. Vera catheter in the bladder. Reproductive: Unremarkable as visualized. ABDOMEN and PELVIS: Intraperitoneal space: No free air. Bones/joints: No acute fracture. Soft tissues: Unremarkable. Vasculature: Unremarkable. Lymph nodes: Unremarkable. Tubes, lines and devices: Gastrostomy tube in the stomach. IMPRESSION: 1. Mildly thickened sigmoid colon which may be underdistention, chronic, colitis, versus lesion. Colonic air-distention which may be ileus. No bowel obstruction or diverticulitis. 2. Thickened bladder which may be chronic, cystitis, versus lesion. 3. Bibasilar infiltrates. Small left pleural effusion. (2) Pneumonia (3) Free intraperitoneal air Assessment & Plan: Apparent lucency underlying the right hemidiaphragm. This may potentially be artifactual. Recommend correlation with CT of the abdomen to exclude the possibility of free peritoneal air, particularly if there is a history of abdominal pain. Extensive interstitial and alveolar infiltrates concerning for multifocal pneumonia. Possibility of underlying chronic interstitial/chronic lung disease and scarring can also be considered. Indwelling tracheostomy tube. (4) Perforated abdominal viscus Assessment & Plan: CT reviewed no free air artifact on cxr abd distended cannot tell tender given condition will monitor (5) Decubitus skin ulcer (6) Hyperglycemia (7) Leukocytosis (8) GIB (gastrointestinal bleeding) (9) POPPY (acute kidney injury) (10) Dyspnea (11) Respiratory distress Abdoul Lucas Jul 31, 2020 11:57
--- NOTE | 2020-07-31 12:30 | NUR ---
NURSE NOTES: Dr. Lucas assessed patient bedside. RTs are present. Trach change was performed to Shiley 6.0 without complication. Will continue to monitor.
--- NOTE | 2020-07-31 12:45 | NUR ---
NURSE NOTES: Patient is observed bedside. Patient is resting bedside, patient continues intermittently respond. Patient is with an upward gaze that continues facial twitching. Patient does respond to stimulus. Patient is not any acute distress and is without facial grimacing. Patient is being monitored on the manager monitoring, VSS. SB is improved with the Midrodrine being held. Patient is currently trach to vent with a new Shiley 6.0 that still has a leak however, improved with vent settings of AC 16 TV 500 FIO2 800% +5. Patient requires frequent suctioning 2/2 to copious oral secretions. Oral care was performed. Patient's GT con't to be clamped and being remains NPO. Patient is with a Vera catheter that is draining cloudy yellow urine to gravity. ZOE is running D5NS @ 30 ml/hr, Safety precautions are in place with bed locked in the lowest position, padded side rails for sz precautions. Will continue to monitor and carry out MD orders.
--- NOTE | 2020-07-31 13:00 | NUR ---
NURSE NOTES: Patient previously with SB 47-55s. HELD noon dose of Midodrine for continued improvement of HR. Patient remains 60s-80s. BP 124/61. Patient is maintaining stable BP. Will con't to monitor for possible DC of Midodrine. Will report to MD that HR is much improved. Will continue to monitor.
[2020-07-31] MEDS: D5NS 1,000 ML IV SCH (16:18)
[2020-07-31] MEDS: Unasyn 3gm in NS 110ml IVPB SCH ×2 (16:18→17:28)
--- NOTE | 2020-07-31 17:00 | NUR ---
NURSE NOTES: Report received from MANNY Ortega. Patient opens eyes spontaneously. Does not make eye contact. Non-verbal. Unable to make eye contact. SR on telemetry monitor. Trach to vent. S 6.0 with AC 16, TV 500, FiO2 80%, P 5. O2 sat 100%. Moderate amount of secretion from trach and mouth noted and suctioned. GT in place and kept NPO as ordered. Vera in place draining to dilcia colored cloudy urine. General edema noted. ZOE PICC line patent and asymptomatic. D5NS is running at 30cc/hr. Bed in lowest position. Side rails up x3. Will resume plan of care.
--- NOTE | 2020-07-31 17:02 | NUR ---
NURSE NOTES: Spoke with pharmacist. Will hold 1630 Insulin dose since 1130 dose was given too close to next one at 1620.
--- NOTE | 2020-07-31 17:28 | NUR ---
NURSE NOTES: Spoke with pharmacyNguyen. Will hold 1800 Unasyn since the previous dose was given too close to the next one as pharmacy recommended.
--- NOTE | 2020-07-31 18:53 | NUR ---
NURSE NOTES: Unable to take pictures since camera battery is . Will endorse to shift superintendent. Cleaned and repositioned patient. No BM noted.
--- NOTE | 2020-07-31 19:30 | NUR ---
NURSE NOTES: Received pt obtunded, trache to vent on ac mode, with occ facial twitching, Mds are aware SR on the monitor, Bp stable afebrile. NPO at this time. GT clamped. Abdomen soft but enlargeg with normo active bowel sounds, Pt with generalized 2-3+ edema. nape area with wound covered with optifoam , pls see previous pictures, and sacral excoriation. On P200 matress. ZOE PICC line with current drsg D5NS at 30ml/hr. infusing well. Will continue to monitor.
--- NOTE | 2020-07-31 19:36 | NUR ---
NURSE HAND-OFF REPORT: Latest Vital Signs: Temperature , Pulse 82 , B/P 129 /66 , Respiratory Rate 28 , O2 SAT 100 , Mechanical Ventilator, O2 Flow Rate 80.0 . Vital Sign Comment: Stable EKG Rhythm: Sinus Rhythm Rhythm change?: N MD Notified?: - MD Response: Latest Ackerman Fall Score: 50 Fall Risk: High Risk Safety Measures: Call light Within Reach, Bed Alarm Zone 3, Side Rails Side Rails x3, Bed position Low and Locked. Fall Precautions: Yellow Socks Report given to MANNY Boss.
[2020-07-31] MEDS: Dyna-Hex 2% Top Sol 2oz TOPIC SCH (20:20)
--- NOTE | 2020-07-31 21:30 | NUR ---
NURSE NOTES: Repositioned for comfort and for prevention for further skin breakdown.
--- NOTE | 2020-07-31 22:00 | NUR ---
NURSE NOTES: Suctioned tn tk beige secretions lg in amt. 02 sat 96%
[2020-08-01] VITALS (18 sets, daily range): BP systolic 98–161; BP diastolic 57–74
--- NOTE | 2020-08-01 | NUR ---
NURSE NOTES: Dozing on and off with VSS.
[2020-08-01] MEDS: Unasyn 3gm in NS 110ml IVPB SCH ×4 (00:41→18:05)
--- NOTE | 2020-08-01 01:09 | NUR ---
NURSE NOTES: Reposioned for comfort.
--- NOTE | 2020-08-01 02:00 | NUR ---
NURSE NOTES: Picture taken done with pts wound, posterior neck and left buttocks. Tx applied
--- NOTE | 2020-08-01 03:00 | NUR ---
NURSE NOTES: Complete bed bath with bed changed done.
--- NOTE | 2020-08-01 05:00 | NUR ---
NURSE NOTES: Remained on SB- SR BP stable.
[2020-08-01 05:11] LABS: BASOPHILS % (AUTO) 0.4 % (0.0-2.0); EOSINOPHILS % (AUTO) 1.5 % (0.0-3.0); HEMATOCRIT 33.2 % (42.0-52.0); LYMPHOCYTES % (AUTO) 14.8 % (20.0-45.0); MEAN CORPUSCULAR VOLUME 92 FL (80-99); MONOCYTES % (AUTO) 6.7 % (1.0-10.0); NEUTROPHILS % (AUTO) 76.7 % (45.0-75.0); PLATELET COUNT 205 K/UL (150-450); RED BLOOD COUNT 3.61 M/UL (4.70-6.10); RED CELL DISTRIBUTION WIDTH 18.2 % (11.6-14.8); WHITE BLOOD COUNT 13.3 K/UL (4.8-10.8)
[2020-08-01 05:40] LABS: ALANINE AMINOTRANSFERASE 20 U/L (12-78); ALBUMIN 1.7 G/DL (3.4-5.0); ALBUMIN/GLOBULIN RATIO 0.3 (1.0-2.7); ALKALINE PHOSPHATASE 148 U/L (46-116); ANION GAP 8 mmol/L (5-15); ASPARTATE AMINO TRANSFERASE 21 U/L (15-37); BILIRUBIN,TOTAL 0.4 MG/DL (0.2-1.0); BLOOD UREA NITROGEN 11 mg/dL (7-18); CALCIUM 8.4 MG/DL (8.5-10.1); CARBON DIOXIDE 25 MMOL/L (21-32); CHLORIDE 111 MMOL/L (98-107); CREATININE 0.9 MG/DL (0.55-1.30); POTASSIUM 4.1 MMOL/L (3.5-5.1); SODIUM 144 MMOL/L (136-145)
[2020-08-01] MEDS: NovoLOG Insulin Flexpen SUBQ SCH ×4 (06:05→20:52)
--- NOTE | 2020-08-01 06:30 | NUR ---
NURSE NOTES: Accucheck with coverage . pls see Emar.
--- NOTE | 2020-08-01 07:25 | NUR ---
NURSE HAND-OFF REPORT: Latest Vital Signs: Temperature 98.2 , Pulse 69 , B/P 130 /64 , Respiratory Rate 27 , O2 SAT 100 , Mechanical Ventilator, O2 Flow Rate 80.0 . Vital Sign Comment: EKG Rhythm: Sinus Rhythm Rhythm change?: N MD Notified?: - MD Response: Latest Ackerman Fall Score: 50 Fall Risk: High Risk Safety Measures: Call light Within Reach, Bed Alarm Zone 3, Side Rails Side Rails x3, Bed position Low and Locked. Fall Precautions: Yellow Socks Report given to aidan BRYANT
--- NOTE | 2020-08-01 07:26 | NUR ---
NURSE NOTES: Received bedside report from MANNY Boss. Pt's VSS, afebrile, no signs of distress noted. Pt opens eyes, does not track and does not follow commands. Facial muscle twitching noted, on Keppra IVPB. NSR on the hall monitor, HR between 80-90 bpm. Respirations even and unlabored. Pt trached to vent with shiley #6, vent settings: A/C rate of 16, T/V 500, 80% FiO2, Peep 5, o2 sat between 95-100%. Abd distended but soft to touch, hypoactive bowel sounds noted. Pt NPO. G-tube clamped, no tube feeding or suction at this time. Pt has [place] catheter, draining well, clear yellow urine noted. Skin alterations noted in chart and covered with optifoam. Pt has ZOE PICC, no signs of bleeding or infection noted from site, D5NS running at 30mL/hr. BUE and BLE contractures noted. HOB at 30 degrees. Bed locked and in lowest position. Safety precautions in place. Will continue to monitor.
--- NOTE | 2020-08-01 08:07 | NUR ---
RD ASSESSMENT & RECOMMENDATIONS SEE CARE ACTIVITY FOR COMPLETE ASSESSMENT DAILY ESTIMATED NEEDS: Needs based on Critical care, wound 82kg 22-28 kcals/kg 5931-0342 total kcals 1.25-2 g protein/kg 103-164 g total protein 25-30 mL/kg 0279-7802 total fluid mLs NUTRITION DIAGNOSIS: * Swallowing difficulty R/T respiratory status, dysphagia as evidenced by trach/vent dep, PEG dep. CURRENT TF: NPO ENTERAL NUTRITION RECOMMENDATIONS: Glucerna 1.5 @ 55ml/hr x 24 hrs to provide 1320ml, 1980kcal, 109g prot, 1002ml free water * As medically able, rec GLUCERNA 1.5. Start @20ml/hr for 6 hrs, advance as tolerated 10ml/hr q4-6 hrs to goal. * HOB over 30 degrees/ water flush per MD ADDITIONAL RECOMMENDATIONS: * Re-calibrated bedcale wt for accurate CBW * Monitor lytes, replete as needed * Rec wound care eval -> Stage 2, add MANJIT BID w/ TF's * Rec bed side BG checks, pt w/ low blood glucose this morning. On POC checks + D5. * Monitor ability to feed .
--- NOTE | 2020-08-01 08:57 | General Progress Note ---
Subjective ROS Limited/Unobtainable: No Constitutional: Reports: malaise, weakness HEENT: Reports: no symptoms Cardiovascular: Reports: no symptoms Respiratory: Reports: shortness of breath, sputum Gastrointestinal/Abdominal: Reports: no symptoms Genitourinary: Reports: no symptoms Neurologic/Psychiatric: Reports: pre-existing deficit, seizure Endocrine: Reports: no symptoms Hematologic/Lymphatic: Reports: no symptoms Allergies: Coded Allergies: No Known Allergies (Unverified , 07/04/18) All Systems: reviewed and negative except above Subjective no events. stable on the vent. no fever or chills. no congestion. tolerating feeds. tolerating po Objective Last 24 Hour Vital Signs Date Time Temp Pulse Resp B/P (MAP) Pulse Ox O2 Delivery O2 Flow Rate FiO2 08/01/20 07:20 65 24 80 08/01/20 06:00 69 27 130/64 (86) 100 08/01/20 05:00 56 24 98/69 (79) 100 08/01/20 04:00 80.0 08/01/20 04:00 98.2 71 30 128/63 (84) 100 08/01/20 04:00 59 08/01/20 04:00 Mechanical Ventilator 08/01/20 03:55 86 28 80 08/01/20 03:00 76 28 119/60 (79) 100 08/01/20 02:00 67 27 121/74 (90) 100 08/01/20 01:00 70 27 121/57 (78) 100 08/01/20 00:00 80.0 08/01/20 00:00 Mechanical Ventilator 08/01/20 00:00 99.0 65 24 127/67 (87) 100 08/01/20 00:00 68 07/31/20 23:30 80 28 80 07/31/20 23:00 65 24 122/62 (82) 100 07/31/20 22:00 63 24 136/73 (94) 100 07/31/20 21:00 62 26 121/61 (81) 100 07/31/20 20:00 98.0 91 28 127/67 (87) 96 07/31/20 20:00 80.0 07/31/20 20:00 Mechanical Ventilator 07/31/20 20:00 67 07/31/20 19:26 82 28 80 07/31/20 19:00 89 28 129/66 (87) 100 07/31/20 18:00 88 23 127/60 (82) 100 07/31/20 17:00 Mechanical Ventilator 07/31/20 17:00 83 22 132/62 (85) 100 07/31/20 16:00 Mechanical Ventilator 07/31/20 16:00 98.8 65 23 122/58 (79) 100 07/31/20 16:00 65 07/31/20 15:14 65 22 80 07/31/20 15:00 64 22 122/59 (80) 100 07/31/20 14:00 65 22 120/57 (78) 100 07/31/20 13:00 75 24 122/61 (81) 100 07/31/20 12:30 80.0 07/31/20 12:00 Mechanical Ventilator 07/31/20 12:00 98.2 64 21 124/61 (82) 100 07/31/20 12:00 63 07/31/20 12:00 80.0 07/31/20 11:15 59 19 80 07/31/20 11:00 62 21 127/57 (80) 100 07/31/20 10:00 60 20 124/56 (78) 100 07/31/20 09:00 61 20 124/62 (82) 100 Intake and Output 07/31/20 08/01/20 19:00 07:00 Intake Total 980 ml 330 ml Output Total 540 ml 480 ml Balance 440 ml -150 ml IV Total 980 ml 330 ml Output Urine Total 540 ml 480 ml Laboratory Tests 07/31/20 17:32: POC Whole Blood Glucose [Pending] 07/31/20 21:28: POC Whole Blood Glucose [Pending] 08/01/20 04:00: White Blood Count 13.3H, Red Blood Count 3.61L, Hemoglobin 10.0L, Hematocrit 33.2L, Mean Corpuscular Volume 92, Mean Corpuscular Hemoglobin 27.7, Mean Corpuscular Hemoglobin Concent 30.0L, Red Cell Distribution Width 18.2H, Platelet Count 205, Mean Platelet Volume 7.1, Neutrophils (%) (Auto) 76.7H, Lymphocytes (%) (Auto) 14.8L, Monocytes (%) (Auto) 6.7, Eosinophils (%) (Auto) 1.5, Basophils (%) (Auto) 0.4, Sodium Level 144, Potassium Level 4.1, Chloride Level 111H, Carbon Dioxide Level 25, Anion Gap 8, Blood Urea Nitrogen 11, Creatinine 0.9, Estimat Glomerular Filtration Rate > 60, Glucose Level 164H, Calcium Level 8.4L, Total Bilirubin 0.4, Aspartate Amino Transf (AST/SGOT) 21, Alanine Aminotransferase (ALT/SGPT) 20, Alkaline Phosphatase 148H, Total Protein 7.8, Albumin 1.7L, Globulin 6.1, Albumin/Globulin Ratio 0.3L 08/01/20 05:32: POC Whole Blood Glucose 170H Height (Feet): 5 Height (Inches): 11.00 Weight (Pounds): 180 General Appearance: WD/WN, lethargic, confused EENT: PERRL/EOMI Neck: non-tender, normal alignment Cardiovascular: normal peripheral pulses, normal rate Respiratory/Chest: chest wall non-tender, lungs clear, normal breath sounds, no respiratory distress Abdomen: normal bowel sounds, non tender, soft, no organomegaly Extremities: normal range of motion Neurologic: disoriented, unresponsive, aphasia Skin: normal pigmentation Assessment/Plan Problem List: (1) Sepsis ICD Codes: A41.9 - Sepsis, unspecified organism SNOMED: 16343386 (2) Pneumonia ICD Codes: J18.9 - Pneumonia, unspecified organism SNOMED: 786102476 (3) Leukocytosis ICD Codes: D72.829 - Elevated white blood cell count, unspecified SNOMED: 905079360, 987632527 (4) POPPY (acute kidney injury) ICD Codes: N17.9 - Acute kidney failure, unspecified SNOMED: 9091795, 68535709 (5) Dyspnea ICD Codes: R06.00 - Dyspnea, unspecified SNOMED: 063567196 (6) Respiratory distress ICD Codes: R06.03 - Acute respiratory distress SNOMED: 201333785 Status: stable, not improved Assessment/Plan: IV fluids and boluses as needed Continue broad-spectrum IV antibiotics PICC line for antibiotics, IV fluids and possibly pressors Monitor H&H Transfuse as needed PPI treatment Stool for occult blood Continue vent support Breathing treatments and suctioning as needed Monitor electrolytes Turn every 2 hours Continue seizure treatment Tube feeds Chano Galeana MD Aug 01, 2020 08:57
--- NOTE | 2020-08-01 09:00 | NUR ---
NURSE NOTES: Scheduled medications given per MD order, pt tolerated well. Pt's residual checked, no residual noted. Pt started on Osmolite 1.5 at 10 mL/hr per MD order. Pt's VSS, no signs of distress noted. Will continue to monitor.
--- NOTE | 2020-08-01 09:10 | Diagnostic Imaging Report ---
EXAM: XR Abdomen, 2 Views CLINICAL HISTORY: F/U TECHNIQUE: Frontal view of the abdomen/pelvis with upright view of the abdomen. COMPARISON: Abdominal radiograph July 29, 2020 FINDINGS/IMPRESSION: Decrease in the degree of gaseous distention of the large bowel. No definite small bowel obstruction. No free intraperitoneal air. Left effusion and airspace consolidations, correlate with chest radiograph from July 29, 2020.
[2020-08-01] MEDS: Pantoprazole Inj IVP SCH (09:22)
[2020-08-01] MEDS: levETIRAcetam 1,000mg/NS100ml 100 ML IVPB SCH ×2 (09:23→20:48)
--- NOTE | 2020-08-01 10:21 | Critical Care Progress Note ---
Assessment/Plan Assessment/Plan IMPRESSION: ?Possible perforated viscus, possible free peritoneal air, probable sepsis, hyponatremia, acute renal failure, chronic respiratory failure, thickened colon diffuse pneumonia, elevated lactic dehydrogenase, abdominal distention, severe protein-calorie malnutrition, seizure disorder. pneumonia, anemia PLAN care noted monitor acid base transfuse as needed IV antibiotics cultures noted respiratory care Ventilatory support SNF meds supportive care monitor for seizures advance feeds no wean oxygen therapy prognosis critical surgical follow up monitor lytes and correct medications/laboratory data/nursing notes/ICU care reviewed in detail note reviewed and edited care discussed with RN and RT ICU time spent >40 minutes Critical Care - Subjective Interval Events: started on feeds poor LOC full care in ICU no seizures ROS Limited/Unobtainable: Yes Condition: critical EKG Rhythm: Sinus Rhythm Residuals: minimal Tube Feeding Tolerated: yes I&O: Intake and Output 07/31/20 08/01/20 19:00 07:00 Intake Total 980 ml 330 ml Output Total 540 ml 480 ml Balance 440 ml -150 ml IV Total 980 ml 330 ml Output Urine Total 540 ml 480 ml Critical Care - Objective Last 24 Hour Vital Signs Date Time Temp Pulse Resp B/P (MAP) Pulse Ox O2 Delivery O2 Flow Rate FiO2 08/01/20 07:20 65 24 80 08/01/20 06:00 69 27 130/64 (86) 100 08/01/20 05:00 56 24 98/69 (79) 100 08/01/20 04:00 80.0 08/01/20 04:00 98.2 71 30 128/63 (84) 100 08/01/20 04:00 59 08/01/20 04:00 Mechanical Ventilator 08/01/20 03:55 86 28 80 08/01/20 03:00 76 28 119/60 (79) 100 08/01/20 02:00 67 27 121/74 (90) 100 08/01/20 01:00 70 27 121/57 (78) 100 08/01/20 00:00 80.0 08/01/20 00:00 Mechanical Ventilator 08/01/20 00:00 99.0 65 24 127/67 (87) 100 08/01/20 00:00 68 07/31/20 23:30 80 28 80 07/31/20 23:00 65 24 122/62 (82) 100 07/31/20 22:00 63 24 136/73 (94) 100 07/31/20 21:00 62 26 121/61 (81) 100 07/31/20 20:00 98.0 91 28 127/67 (87) 96 07/31/20 20:00 80.0 07/31/20 20:00 Mechanical Ventilator 07/31/20 20:00 67 07/31/20 19:26 82 28 80 07/31/20 19:00 89 28 129/66 (87) 100 07/31/20 18:00 88 23 127/60 (82) 100 07/31/20 17:00 Mechanical Ventilator 07/31/20 17:00 83 22 132/62 (85) 100 07/31/20 16:00 Mechanical Ventilator 07/31/20 16:00 98.8 65 23 122/58 (79) 100 07/31/20 16:00 65 07/31/20 15:14 65 22 80 07/31/20 15:00 64 22 122/59 (80) 100 07/31/20 14:00 65 22 120/57 (78) 100 07/31/20 13:00 75 24 122/61 (81) 100 07/31/20 12:30 80.0 07/31/20 12:00 Mechanical Ventilator 07/31/20 12:00 98.2 64 21 124/61 (82) 100 07/31/20 12:00 63 07/31/20 12:00 80.0 07/31/20 11:15 59 19 80 07/31/20 11:00 62 21 127/57 (80) 100 Labs: Labs Test 07/29/20 17:01 07/29/20 21:04 07/30/20 04:00 07/30/20 04:22 POC Whole Blood Glucose 128 MG/DL (74-106) 152 MG/DL (74-106) White Blood Count 12.6 K/UL (4.8-10.8) Red Blood Count 2.52 M/UL (4.70-6.10) Hemoglobin 6.8 G/DL (14.2-18.0) Hematocrit 22.7 % (42.0-52.0) Mean Corpuscular Volume 90 FL (80-99) Mean Corpuscular Hemoglobin 27.1 PG (27.0-31.0) Mean Corpuscular Hemoglobin Concent 30.0 G/DL (32.0-36.0) Red Cell Distribution Width 19.7 % (11.6-14.8) Platelet Count 181 K/UL (150-450) Mean Platelet Volume 8.5 FL (6.5-10.1) Neutrophils (%) (Auto) % (45.0-75.0) Lymphocytes (%) (Auto) % (20.0-45.0) Monocytes (%) (Auto) % (1.0-10.0) Eosinophils (%) (Auto) % (0.0-3.0) Basophils (%) (Auto) % (0.0-2.0) Differential Total Cells Counted 100 Neutrophils % (Manual) 75 % (45-75) Lymphocytes % (Manual) 14 % (20-45) Monocytes % (Manual) 10 % (1-10) Eosinophils % (Manual) 1 % (0-3) Basophils % (Manual) 0 % (0-2) Band Neutrophils 0 % (0-8) Platelet Estimate Adequate Platelet Morphology Normal Hypochromasia 1+ Anisocytosis 2+ Sodium Level 138 MMOL/L (136-145) Potassium Level 4.7 MMOL/L (3.5-5.1) Chloride Level 107 MMOL/L (98-107) Carbon Dioxide Level 24 MMOL/L (21-32) Anion Gap 7 mmol/L (5-15) Blood Urea Nitrogen 19 mg/dL (7-18) Creatinine 1.2 MG/DL (0.55-1.30) Estimat Glomerular Filtration Rate > 60 mL/min (>60) Glucose Level 151 MG/DL (74-106) Calcium Level 8.3 MG/DL (8.5-10.1) Vancomycin Level Trough 7.2 ug/mL (5.0-12.0) Test 07/30/20 12:23 07/30/20 17:55 07/30/20 18:50 07/30/20 20:20 POC Whole Blood Glucose 151 MG/DL (74-106) White Blood Count 13.8 K/UL (4.8-10.8) Red Blood Count 3.22 M/UL (4.70-6.10) Hemoglobin 9.0 G/DL (14.2-18.0) Hematocrit 28.5 % (42.0-52.0) Mean Corpuscular Volume 88 FL (80-99) Mean Corpuscular Hemoglobin 28.1 PG (27.0-31.0) Mean Corpuscular Hemoglobin Concent 31.7 G/DL (32.0-36.0) Red Cell Distribution Width 18.5 % (11.6-14.8) Platelet Count 184 K/UL (150-450) Mean Platelet Volume 6.8 FL (6.5-10.1) Neutrophils (%) (Auto) 78.1 % (45.0-75.0) Lymphocytes (%) (Auto) 11.5 % (20.0-45.0) Monocytes (%) (Auto) 7.8 % (1.0-10.0) Eosinophils (%) (Auto) 1.8 % (0.0-3.0) Basophils (%) (Auto) 0.8 % (0.0-2.0) Test 07/30/20 21:10 07/31/20 05:05 07/31/20 17:32 07/31/20 21:28 White Blood Count 13.5 K/UL (4.8-10.8) Red Blood Count 3.41 M/UL (4.70-6.10) Hemoglobin 9.7 G/DL (14.2-18.0) Hematocrit 31.4 % (42.0-52.0) Mean Corpuscular Volume 92 FL (80-99) Mean Corpuscular Hemoglobin 28.4 PG (27.0-31.0) Mean Corpuscular Hemoglobin Concent 30.8 G/DL (32.0-36.0) Red Cell Distribution Width 18.2 % (11.6-14.8) Platelet Count 191 K/UL (150-450) Mean Platelet Volume 7.9 FL (6.5-10.1) Neutrophils (%) (Auto) 78.5 % (45.0-75.0) Lymphocytes (%) (Auto) 11.3 % (20.0-45.0) Monocytes (%) (Auto) 7.9 % (1.0-10.0) Eosinophils (%) (Auto) 1.8 % (0.0-3.0) Basophils (%) (Auto) 0.4 % (0.0-2.0) Sodium Level 139 MMOL/L (136-145) Potassium Level 4.5 MMOL/L (3.5-5.1) Chloride Level 109 MMOL/L (98-107) Carbon Dioxide Level 24 MMOL/L (21-32) Anion Gap 6 mmol/L (5-15) Blood Urea Nitrogen 16 mg/dL (7-18) Creatinine 0.9 MG/DL (0.55-1.30) Estimat Glomerular Filtration Rate > 60 mL/min (>60) Glucose Level 185 MG/DL (74-106) Calcium Level 8.4 MG/DL (8.5-10.1) Test 08/01/20 04:00 08/01/20 05:32 White Blood Count 13.3 K/UL (4.8-10.8) Red Blood Count 3.61 M/UL (4.70-6.10) Hemoglobin 10.0 G/DL (14.2-18.0) Hematocrit 33.2 % (42.0-52.0) Mean Corpuscular Volume 92 FL (80-99) Mean Corpuscular Hemoglobin 27.7 PG (27.0-31.0) Mean Corpuscular Hemoglobin Concent 30.0 G/DL (32.0-36.0) Red Cell Distribution Width 18.2 % (11.6-14.8) Platelet Count 205 K/UL (150-450) Mean Platelet Volume 7.1 FL (6.5-10.1) Neutrophils (%) (Auto) 76.7 % (45.0-75.0) Lymphocytes (%) (Auto) 14.8 % (20.0-45.0) Monocytes (%) (Auto) 6.7 % (1.0-10.0) Eosinophils (%) (Auto) 1.5 % (0.0-3.0) Basophils (%) (Auto) 0.4 % (0.0-2.0) Sodium Level 144 MMOL/L (136-145) Potassium Level 4.1 MMOL/L (3.5-5.1) Chloride Level 111 MMOL/L (98-107) Carbon Dioxide Level 25 MMOL/L (21-32) Anion Gap 8 mmol/L (5-15) Blood Urea Nitrogen 11 mg/dL (7-18) Creatinine 0.9 MG/DL (0.55-1.30) Estimat Glomerular Filtration Rate > 60 mL/min (>60) Glucose Level 164 MG/DL (74-106) Calcium Level 8.4 MG/DL (8.5-10.1) Total Bilirubin 0.4 MG/DL (0.2-1.0) Aspartate Amino Transf (AST/SGOT) 21 U/L (15-37) Alanine Aminotransferase (ALT/SGPT) 20 U/L (12-78) Alkaline Phosphatase 148 U/L (46-116) Total Protein 7.8 G/DL (6.4-8.2) Albumin 1.7 G/DL (3.4-5.0) Globulin 6.1 g/dL Albumin/Globulin Ratio 0.3 (1.0-2.7) POC Whole Blood Glucose 170 MG/DL (74-106) Objective: GENERAL: An ill-appearing male, chronically ill. HEENT: Negative. Tracheostomy midline. The patient is with chronic tongue protrusion. LUNGS: Coarse breath sounds. moderate breath sounds CARDIAC: S1, S2. Regular rate and rhythm. ABDOMEN: Distended. Poor bowel sounds. EXTREMITIES: No cyanosis or clubbing. There is mild edema. NEUROLOGIC: Poorly responsive to pain. Micro: Microbiology Date/Time Source Procedure Growth Status 07/30/20 18:50 Stool Clostridium difficile Toxin Assay - Final Complete 07/29/20 19:00 Sputum Gram Stain - Final Complete 07/29/20 19:00 Sputum Culture - Final Acinetobacter Baumannii Complx Complete Accucheck: 170 Bakari Montanez MD Aug 01, 2020 10:21
--- NOTE | 2020-08-01 11:30 | NUR ---
NURSE NOTES: Pt's blood glucose checked, 169, 3 units given per MD order. Other scheduled medication given, pt tolerated well. VS remain stable. Will continue to monitor.
--- NOTE | 2020-08-01 12:04 | Infectious Diseases Prog Note ---
Assessment/Plan Assessment/Plan antibiotics : unasyn 07.31.20 - A 1. acenitobacter pneumonia COVID 19 negative 2. respiratory failure 3. colitis 4. UTI 5. diabetes mellitus 6. hypertension 7. COPD P 1. continue unasyn 2. will follow up cultures Subjective ROS Limited/Unobtainable: Yes Allergies: Coded Allergies: No Known Allergies (Unverified , 07/04/18) Objective Last 24 Hour Vital Signs Date Time Temp Pulse Resp B/P (MAP) Pulse Ox O2 Delivery O2 Flow Rate FiO2 08/01/20 11:00 73 23 146/65 (92) 100 08/01/20 10:00 76 26 127/60 (82) 100 08/01/20 09:00 80 29 133/65 (87) 99 08/01/20 08:00 98.6 71 25 124/65 (84) 100 08/01/20 07:20 65 24 80 08/01/20 07:00 70 24 126/63 (84) 100 08/01/20 06:00 69 27 130/64 (86) 100 08/01/20 05:00 56 24 98/69 (79) 100 08/01/20 04:00 80.0 08/01/20 04:00 98.2 71 30 128/63 (84) 100 08/01/20 04:00 59 08/01/20 04:00 Mechanical Ventilator 08/01/20 03:55 86 28 80 08/01/20 03:00 76 28 119/60 (79) 100 08/01/20 02:00 67 27 121/74 (90) 100 08/01/20 01:00 70 27 121/57 (78) 100 08/01/20 00:00 80.0 08/01/20 00:00 Mechanical Ventilator 08/01/20 00:00 99.0 65 24 127/67 (87) 100 08/01/20 00:00 68 07/31/20 23:30 80 28 80 07/31/20 23:00 65 24 122/62 (82) 100 07/31/20 22:00 63 24 136/73 (94) 100 07/31/20 21:00 62 26 121/61 (81) 100 07/31/20 20:00 98.0 91 28 127/67 (87) 96 07/31/20 20:00 80.0 07/31/20 20:00 Mechanical Ventilator 07/31/20 20:00 67 07/31/20 19:26 82 28 80 07/31/20 19:00 89 28 129/66 (87) 100 07/31/20 18:00 88 23 127/60 (82) 100 07/31/20 17:00 Mechanical Ventilator 07/31/20 17:00 83 22 132/62 (85) 100 07/31/20 16:00 Mechanical Ventilator 07/31/20 16:00 98.8 65 23 122/58 (79) 100 07/31/20 16:00 65 07/31/20 15:14 65 22 80 07/31/20 15:00 64 22 122/59 (80) 100 07/31/20 14:00 65 22 120/57 (78) 100 07/31/20 13:00 75 24 122/61 (81) 100 07/31/20 12:30 80.0 Height (Feet): 5 Height (Inches): 11.00 Weight (Pounds): 180 HEENT: status post trach Respiratory/Chest: lungs clear Cardiovascular: normal rate, regular rhythm, no gallop/murmur Abdomen: soft, non tender, other - GT Extremities: other - + edema, right arm PICC Microbiology Date/Time Source Procedure Growth Status 07/30/20 18:50 Stool Clostridium difficile Toxin Assay - Final Complete 07/29/20 19:00 Sputum Gram Stain - Final Complete 07/29/20 19:00 Sputum Culture - Final Acinetobacter Baumannii Complx Complete Laboratory Tests Test 07/31/20 17:32 07/31/20 21:28 08/01/20 04:00 08/01/20 05:32 POC Whole Blood Glucose Pending Pending 170 MG/DL (74-106) H White Blood Count 13.3 K/UL (4.8-10.8) H Red Blood Count 3.61 M/UL (4.70-6.10) L Hemoglobin 10.0 G/DL (14.2-18.0) L Hematocrit 33.2 % (42.0-52.0) L Mean Corpuscular Volume 92 FL (80-99) Mean Corpuscular Hemoglobin 27.7 PG (27.0-31.0) Mean Corpuscular Hemoglobin Concent 30.0 G/DL (32.0-36.0) L Red Cell Distribution Width 18.2 % (11.6-14.8) H Platelet Count 205 K/UL (150-450) Mean Platelet Volume 7.1 FL (6.5-10.1) Neutrophils (%) (Auto) 76.7 % (45.0-75.0) H Lymphocytes (%) (Auto) 14.8 % (20.0-45.0) L Monocytes (%) (Auto) 6.7 % (1.0-10.0) Eosinophils (%) (Auto) 1.5 % (0.0-3.0) Basophils (%) (Auto) 0.4 % (0.0-2.0) Sodium Level 144 MMOL/L (136-145) Potassium Level 4.1 MMOL/L (3.5-5.1) Chloride Level 111 MMOL/L (98-107) H Carbon Dioxide Level 25 MMOL/L (21-32) Anion Gap 8 mmol/L (5-15) Blood Urea Nitrogen 11 mg/dL (7-18) Creatinine 0.9 MG/DL (0.55-1.30) Estimat Glomerular Filtration Rate > 60 mL/min (>60) Glucose Level 164 MG/DL (74-106) H Calcium Level 8.4 MG/DL (8.5-10.1) L Total Bilirubin 0.4 MG/DL (0.2-1.0) Aspartate Amino Transf (AST/SGOT) 21 U/L (15-37) Alanine Aminotransferase (ALT/SGPT) 20 U/L (12-78) Alkaline Phosphatase 148 U/L (46-116) H Total Protein 7.8 G/DL (6.4-8.2) Albumin 1.7 G/DL (3.4-5.0) L Globulin 6.1 g/dL Albumin/Globulin Ratio 0.3 (1.0-2.7) L Current Medications Medications (Trade) Dose Ordered Sig/Derrick Route PRN Reason Start Time Stop Time Status Last Admin Dose Admin Acetaminophen (Tylenol) 650 mg Q4H PRN RECTAL Mild Pain (Pain Scale 1-3) 07/28/20 21:15 08/27/20 21:14 Ampicillin Sodium/ Sulbactam Sodium 3 gm/Sodium Chloride 110 ml @ 220 mls/hr Q6HR IVPB 07/31/20 13:00 08/07/20 12:59 08/01/20 05:36 Chlorhexidine Gluconate (Gwendolyn-Hex 2%) 1 applic DAILY@2000 TOPIC 07/30/20 20:00 10/28/20 19:59 07/31/20 20:20 Clonidine HCl (Catapres Tab) 0.1 mg Q4H PRN ORAL For High Blood Pressure 07/28/20 21:15 10/26/20 21:14 Dextrose (Dextrose 50%) 25 ml Q30M PRN IV Hypoglycemia 07/28/20 21:15 10/26/20 21:14 Dextrose (Dextrose 50%) 50 ml Q30M PRN IV Hypoglycemia 07/28/20 21:15 10/26/20 21:14 Dextrose/Sodium Chloride 1,000 ml @ 30 mls/hr Q24H IV 07/30/20 15:45 08/29/20 15:44 07/31/20 16:18 Insulin Aspart (NovoLOG) BEFORE MEALS AND HS SUBQ 07/29/20 06:30 10/27/20 06:29 08/01/20 06:05 Levetiracetam 100 ml @ 400 mls/hr Q12HR IVPB 07/28/20 21:15 10/26/20 21:14 08/01/20 09:23 Pantoprazole (Protonix) 40 mg DAILY IVP 07/29/20 09:00 08/28/20 08:59 08/01/20 09:22 Rosalinda Guerrero MD Aug 01, 2020 12:04
--- NOTE | 2020-08-01 13:45 | NUR ---
NURSE NOTES: Pt's VSS, no signs of distress noted. Respirations even and unlabored. Pt repositioned again. Bed bath and oral care provided. Safety precautions maintained. Will continue to monitor.
--- NOTE | 2020-08-01 15:30 | NUR ---
NURSE NOTES: Cleaned and repositioned patient. No BM noted. Clear thick secretion from trach and mouth noted. Slight face muscle twitching still noted. Oral care done. Afebrile. Will continue to monitor.
[2020-08-01] MEDS: D5NS 1,000 ML IV SCH (16:01)
--- NOTE | 2020-08-01 17:18 | NUR ---
NURSE NOTES: Received report from Ivon BRYANT. Pt. family at bedsides for support.
--- NOTE | 2020-08-01 17:30 | NUR ---
TRANSFER TO FLOOR: Patient transferred to [facility]. Report given to MANNY Kumar No belongings. Medications given to MANNY Kumar. Son at bedside at the time of transfer.
--- NOTE | 2020-08-01 17:55 | Surgery Progress Note ---
Surgery Progress Note Subjective Additional Comments trach changed since beetter volumes no leak now cuff holding no bleeding less drainage lots of secretions Objective Last 24 Hour Vital Signs Date Time Temp Pulse Resp B/P (MAP) Pulse Ox O2 Delivery O2 Flow Rate FiO2 08/01/20 16:10 80 08/01/20 16:00 97.9 74 23 130/66 (87) 100 08/01/20 16:00 80.0 08/01/20 16:00 Mechanical Ventilator 08/01/20 15:00 74 24 136/67 (90) 100 08/01/20 14:00 83 24 161/70 (100) 97 08/01/20 13:00 83 24 142/61 (88) 100 08/01/20 12:10 82 08/01/20 12:00 Mechanical Ventilator 08/01/20 12:00 98.4 81 25 133/64 (87) 100 08/01/20 12:00 80.0 08/01/20 11:00 74 26 80 08/01/20 11:00 73 23 146/65 (92) 100 08/01/20 10:00 76 26 127/60 (82) 100 08/01/20 09:00 80 29 133/65 (87) 99 08/01/20 08:00 98.6 71 25 124/65 (84) 100 08/01/20 08:00 Mechanical Ventilator 08/01/20 08:00 80.0 08/01/20 07:51 79 08/01/20 07:20 65 24 80 08/01/20 07:00 70 24 126/63 (84) 100 08/01/20 06:00 69 27 130/64 (86) 100 08/01/20 05:00 56 24 98/69 (79) 100 08/01/20 04:00 80.0 08/01/20 04:00 98.2 71 30 128/63 (84) 100 08/01/20 04:00 59 08/01/20 04:00 Mechanical Ventilator 08/01/20 03:55 86 28 80 08/01/20 03:00 76 28 119/60 (79) 100 08/01/20 02:00 67 27 121/74 (90) 100 08/01/20 01:00 70 27 121/57 (78) 100 08/01/20 00:00 80.0 08/01/20 00:00 Mechanical Ventilator 08/01/20 00:00 99.0 65 24 127/67 (87) 100 08/01/20 00:00 68 07/31/20 23:30 80 28 80 07/31/20 23:00 65 24 122/62 (82) 100 07/31/20 22:00 63 24 136/73 (94) 100 07/31/20 21:00 62 26 121/61 (81) 100 07/31/20 20:00 98.0 91 28 127/67 (87) 96 07/31/20 20:00 80.0 07/31/20 20:00 Mechanical Ventilator 07/31/20 20:00 67 07/31/20 19:26 82 28 80 07/31/20 19:00 89 28 129/66 (87) 100 07/31/20 18:00 88 23 127/60 (82) 100 I&O Intake and Output 07/31/20 08/01/20 19:00 07:00 Intake Total 980 ml 360 ml Output Total 540 ml 480 ml Balance 440 ml -120 ml IV Total 980 ml 360 ml Output Urine Total 540 ml 480 ml Dressing: saturated Cardiovascular: RSR Respiratory: decreased breath sounds Abdomen: non-tender, present bowel sounds Extremities: no tenderness, no cyanosis Laboratory Tests Test 07/31/20 21:28 08/01/20 04:00 08/01/20 05:32 POC Whole Blood Glucose Pending 170 MG/DL (74-106) H White Blood Count 13.3 K/UL (4.8-10.8) H Red Blood Count 3.61 M/UL (4.70-6.10) L Hemoglobin 10.0 G/DL (14.2-18.0) L Hematocrit 33.2 % (42.0-52.0) L Mean Corpuscular Volume 92 FL (80-99) Mean Corpuscular Hemoglobin 27.7 PG (27.0-31.0) Mean Corpuscular Hemoglobin Concent 30.0 G/DL (32.0-36.0) L Red Cell Distribution Width 18.2 % (11.6-14.8) H Platelet Count 205 K/UL (150-450) Mean Platelet Volume 7.1 FL (6.5-10.1) Neutrophils (%) (Auto) 76.7 % (45.0-75.0) H Lymphocytes (%) (Auto) 14.8 % (20.0-45.0) L Monocytes (%) (Auto) 6.7 % (1.0-10.0) Eosinophils (%) (Auto) 1.5 % (0.0-3.0) Basophils (%) (Auto) 0.4 % (0.0-2.0) Sodium Level 144 MMOL/L (136-145) Potassium Level 4.1 MMOL/L (3.5-5.1) Chloride Level 111 MMOL/L (98-107) H Carbon Dioxide Level 25 MMOL/L (21-32) Anion Gap 8 mmol/L (5-15) Blood Urea Nitrogen 11 mg/dL (7-18) Creatinine 0.9 MG/DL (0.55-1.30) Estimat Glomerular Filtration Rate > 60 mL/min (>60) Glucose Level 164 MG/DL (74-106) H Calcium Level 8.4 MG/DL (8.5-10.1) L Total Bilirubin 0.4 MG/DL (0.2-1.0) Aspartate Amino Transf (AST/SGOT) 21 U/L (15-37) Alanine Aminotransferase (ALT/SGPT) 20 U/L (12-78) Alkaline Phosphatase 148 U/L (46-116) H Total Protein 7.8 G/DL (6.4-8.2) Albumin 1.7 G/DL (3.4-5.0) L Globulin 6.1 g/dL Albumin/Globulin Ratio 0.3 (1.0-2.7) L Plan Problems: (1) Sepsis Assessment & Plan: 75M. cxr with possible free air. ct done and noted. abd distended. exam limited leukocytosis abnormal labs improving with fluids trach malfunction now improved on vent support cont current care will monitor and follow with recs PICC line trend labs transfuse prbc prn trach leak needs trach change ABDOMEN: Liver: Unremarkable. Gallbladder and bile ducts: Unremarkable. No calcified stones. Pancreas: Unremarkable. Spleen: Unremarkable. Adrenals: Unremarkable. Kidneys and ureters: Unremarkable. No hydronephrosis. Stomach and bowel: Mildly thickened sigmoid colon which may be underdistention, chronic, colitis, versus lesion. Colonic air-distention which may be ileus. No bowel obstruction or diverticulitis. PELVIS: Appendix: No findings to suggest acute appendicitis. Bladder: Thickened bladder which may be chronic, cystitis, versus lesion. Vera catheter in the bladder. Reproductive: Unremarkable as visualized. ABDOMEN and PELVIS: Intraperitoneal space: No free air. Bones/joints: No acute fracture. Soft tissues: Unremarkable. Vasculature: Unremarkable. Lymph nodes: Unremarkable. Tubes, lines and devices: Gastrostomy tube in the stomach. IMPRESSION: 1. Mildly thickened sigmoid colon which may be underdistention, chronic, colitis, versus lesion. Colonic air-distention which may be ileus. No bowel obstruction or diverticulitis. 2. Thickened bladder which may be chronic, cystitis, versus lesion. 3. Bibasilar infiltrates. Small left pleural effusion. (2) Pneumonia (3) Free intraperitoneal air Assessment & Plan: Apparent lucency underlying the right hemidiaphragm. This may potentially be artifactual. Recommend correlation with CT of the abdomen to exclude the possibility of free peritoneal air, particularly if there is a history of abdominal pain. Extensive interstitial and alveolar infiltrates concerning for multifocal pneumonia. Possibility of underlying chronic interstitial/chronic lung disease and scarring can also be considered. Indwelling tracheostomy tube. (4) Perforated abdominal viscus Assessment & Plan: CT reviewed no free air artifact on cxr abd distended cannot tell tender given condition will monitor (5) Decubitus skin ulcer (6) Hyperglycemia (7) Leukocytosis (8) GIB (gastrointestinal bleeding) (9) POPPY (acute kidney injury) (10) Dyspnea (11) Respiratory distress Assessment & Plan: trach changed 6f shiley stable now AngeltylerericallaAbdoul Aug 01, 2020 17:55
--- NOTE | 2020-08-01 18:17 | NUR ---
NURSE NOTES: Pt. in bed, obtunded. No sign of distress. On mech. vent with setting AC16/VT500/Fi O2 of 80%/P5. No grimacing noted. F/C in placed patent/intact draining yellow colored urine. HOB elevated at all times. On GTF Osmolite 1.5 at 20cc/hr. Tolerating well. No n/v noted. PICC line at right upper arm patent/intact running D5 1/2 NS at 30cc/hr. Bed in low position, locked. Call light within reach. Will cont. to monitor.
--- NOTE | 2020-08-01 19:10 | NUR ---
NURSE NOTES: Received report from Chato/ MANNY Stone. Pt is lying in bed in semi- niño's position. Pt has facial ticks noted. Contracted on Both upper extrimities. Pt has no signs of distress. Trach to vent with setting as ordered. With Gtube running Osmolite 1.5 at 20 cc. No any signs of pain noted. Bed in lowest position. Call light within reach. Continue to plan of care.
--- NOTE | 2020-08-01 19:17 | NUR ---
NURSE HAND-OFF REPORT: Important Events on Shift: Transferred from ICU to SDU Patient Status: Diet: Pending Orders: Pending Results/Labs: Pending MD notification: Latest Vital Signs: Temperature 97.9 , Pulse 80 , B/P 130 /66 , Respiratory Rate 23 , O2 SAT 100 , Mechanical Ventilator, O2 Flow Rate 80.0 . Vital Sign Comment: EKG Rhythm: Sinus Rhythm Rhythm change?: N MD Notified?: - MD Response: Latest Ackerman Fall Score: 50 Fall Risk: High Risk Safety Measures: Call light Within Reach, Bed Alarm Zone 3, Side Rails Side Rails x3, Bed position Low and Locked. Fall Precautions: Yellow Socks Report given to Princess BRYANT.
[2020-08-01] MEDS: Dyna-Hex 2% Top Sol 2oz TOPIC SCH (20:00)
[2020-08-02] VITALS: BP 132/70
--- NOTE | 2020-08-02 | NUR ---
NURSE NOTES: Seen pt in bed lying in semi- niño's position. Not in apparent respiratory distress, secretions noted orally. Suctioned secretions. Reposition pt per protocol. Continue to plan of care.
[2020-08-02] MEDS: Unasyn 3gm in NS 110ml IVPB SCH ×5 (00:02→23:16)
[2020-08-02] MEDS: Acetaminophen 650 MG SUPP RECTAL PRN (00:11)
--- NOTE | 2020-08-02 03:08 | Cardiology Progress Note ---
Subjective DATE OF SERVICE: Aug 01, 2020 On vent support No hypoxia Tolerating tube feedings Monitor: sinus with occ PAC's Objective Last 24 Hour Vital Signs Date Time Temp Pulse Resp B/P (MAP) Pulse Ox O2 Delivery O2 Flow Rate FiO2 08/02/20 03:00 80 32 60 08/02/20 00:00 80.0 08/01/20 23:07 82 25 60 08/01/20 20:00 Mechanical Ventilator 08/01/20 20:00 64 08/01/20 20:00 Mechanical Ventilator 08/01/20 20:00 80.0 08/01/20 19:32 69 24 60 08/01/20 16:10 80 08/01/20 16:00 97.9 74 23 130/66 (87) 100 08/01/20 16:00 80.0 08/01/20 16:00 Mechanical Ventilator 08/01/20 15:00 74 24 136/67 (90) 100 08/01/20 15:00 63 23 80 08/01/20 14:00 83 24 161/70 (100) 97 08/01/20 13:00 83 24 142/61 (88) 100 08/01/20 12:10 82 08/01/20 12:00 Mechanical Ventilator 08/01/20 12:00 98.4 81 25 133/64 (87) 100 08/01/20 12:00 80.0 08/01/20 11:00 74 26 80 08/01/20 11:00 73 23 146/65 (92) 100 08/01/20 10:00 76 26 127/60 (82) 100 08/01/20 09:00 80 29 133/65 (87) 99 08/01/20 08:00 98.6 71 25 124/65 (84) 100 08/01/20 08:00 Mechanical Ventilator 08/01/20 08:00 80.0 08/01/20 07:51 79 08/01/20 07:20 65 24 80 08/01/20 07:00 70 24 126/63 (84) 100 08/01/20 06:00 69 27 130/64 (86) 100 08/01/20 05:00 56 24 98/69 (79) 100 08/01/20 04:00 80.0 08/01/20 04:00 98.2 71 30 128/63 (84) 100 08/01/20 04:00 59 08/01/20 04:00 Mechanical Ventilator 08/01/20 03:55 86 28 80 ROS: unchanged HEENT: Thin Trach secretions, other - protruding tongue RHYTHM: NSR, PACs LUNGS: left-sided rhonchi CARDIAC: normal rate, regular rhythm, normal S1 and S2 ABDOMEN: normal bowel sounds, non tender, soft, no organomegaly, G-Tube intact EXTREMITIES: normal range of motion, no calf tenderness, trace edema Laboratory Tests Test 08/01/20 04:00 08/01/20 05:32 08/01/20 20:50 White Blood Count 13.3 K/UL (4.8-10.8) H Red Blood Count 3.61 M/UL (4.70-6.10) L Hemoglobin 10.0 G/DL (14.2-18.0) L Hematocrit 33.2 % (42.0-52.0) L Mean Corpuscular Volume 92 FL (80-99) Mean Corpuscular Hemoglobin 27.7 PG (27.0-31.0) Mean Corpuscular Hemoglobin Concent 30.0 G/DL (32.0-36.0) L Red Cell Distribution Width 18.2 % (11.6-14.8) H Platelet Count 205 K/UL (150-450) Mean Platelet Volume 7.1 FL (6.5-10.1) Neutrophils (%) (Auto) 76.7 % (45.0-75.0) H Lymphocytes (%) (Auto) 14.8 % (20.0-45.0) L Monocytes (%) (Auto) 6.7 % (1.0-10.0) Eosinophils (%) (Auto) 1.5 % (0.0-3.0) Basophils (%) (Auto) 0.4 % (0.0-2.0) Sodium Level 144 MMOL/L (136-145) Potassium Level 4.1 MMOL/L (3.5-5.1) Chloride Level 111 MMOL/L (98-107) H Carbon Dioxide Level 25 MMOL/L (21-32) Anion Gap 8 mmol/L (5-15) Blood Urea Nitrogen 11 mg/dL (7-18) Creatinine 0.9 MG/DL (0.55-1.30) Estimat Glomerular Filtration Rate > 60 mL/min (>60) Glucose Level 164 MG/DL (74-106) H Calcium Level 8.4 MG/DL (8.5-10.1) L Total Bilirubin 0.4 MG/DL (0.2-1.0) Aspartate Amino Transf (AST/SGOT) 21 U/L (15-37) Alanine Aminotransferase (ALT/SGPT) 20 U/L (12-78) Alkaline Phosphatase 148 U/L (46-116) H Total Protein 7.8 G/DL (6.4-8.2) Albumin 1.7 G/DL (3.4-5.0) L Globulin 6.1 g/dL Albumin/Globulin Ratio 0.3 (1.0-2.7) L POC Whole Blood Glucose 170 MG/DL (74-106) H 194 MG/DL (74-106) H Microbiology Date/Time Source Procedure Growth Status 07/30/20 18:50 Stool Clostridium difficile Toxin Assay - Final Complete Assessment/Plan Assessment/Plan Sepsis Respiratory failure Chronic encephalopathy Paroxysmal atrial ectopy Anemia Dehydration/hypernatremia Hypokalemia Severe protein/calorie malnutrition Antimicrobials Vent support Protein suppl Free water by IV route Potassium suppl; check Mg++ DVT prophyl [place] MD Aug 02, 2020 03:08
[2020-08-02 04:00] VITALS: BP 122/72
--- NOTE | 2020-08-02 04:15 | NUR ---
NURSE NOTES: NURSE NOTES: Seen pt in bed lying in semi- niño's position. Sponge bath given.Not in apparent respiratory distress, secretions noted orally. Suctioned secretions. Reposition pt per protocol. Continue to plan of care.
[2020-08-02] MEDS: NovoLOG Insulin Flexpen SUBQ SCH ×4 (05:30→23:12)
[2020-08-02 06:24] LABS: BASOPHILS % (AUTO) 0.3 % (0.0-2.0); EOSINOPHILS % (AUTO) 0.8 % (0.0-3.0); HEMATOCRIT 29.1 % (42.0-52.0); HEMOGLOBIN 8.7 G/DL (14.2-18.0); LYMPHOCYTES % (AUTO) 10.5 % (20.0-45.0); MEAN CORPUSCULAR VOLUME 93 FL (80-99); MONOCYTES % (AUTO) 8.7 % (1.0-10.0); NEUTROPHILS % (AUTO) 79.7 % (45.0-75.0); PLATELET COUNT 209 K/UL (150-450); RED BLOOD COUNT 3.12 M/UL (4.70-6.10); RED CELL DISTRIBUTION WIDTH 18.3 % (11.6-14.8); WHITE BLOOD COUNT 14.3 K/UL (4.8-10.8)
[2020-08-02 06:49] LABS: ALANINE AMINOTRANSFERASE 15 U/L (12-78); ALBUMIN 1.4 G/DL (3.4-5.0); ALBUMIN/GLOBULIN RATIO 0.3 (1.0-2.7); ALKALINE PHOSPHATASE 114 U/L (46-116); ANION GAP 8 mmol/L (5-15); ASPARTATE AMINO TRANSFERASE 22 U/L (15-37); BILIRUBIN,TOTAL 0.4 MG/DL (0.2-1.0); BLOOD UREA NITROGEN 8 mg/dL (7-18); CALCIUM 7.3 MG/DL (8.5-10.1); CARBON DIOXIDE 24 MMOL/L (21-32); CHLORIDE 116 MMOL/L (98-107); CREATININE 0.9 MG/DL (0.55-1.30); POTASSIUM 3.3 MMOL/L (3.5-5.1); SODIUM 148 MMOL/L (136-145)
--- NOTE | 2020-08-02 07:29 | NUR ---
NURSE NOTES: Received report from Princess BRYANT. Patient is in bed sleeping. No signs of distress and no facial grimacing noted. Trache-Vent with setting of AC of 16, Vt 500, FiO2 80, PEEP 5, tolerating well. HOB is elevated at all times, in GT feeding Osmolite 1.5 20 cc/hr continuous. Patient is on Vera catheter, patent, intact, and draining yellow urine Addendum: 08/02/20 at 0738 by Taryn Kaur RN NURSE NOTES: Patient has a ZOE PICC line running D5 1/2 NS at 30 mL/hr, patent and intact. Bed is locked, on lowest position, call light within reach. Patient will continue to be monitored.
--- NOTE | 2020-08-02 07:30 | NUR ---
NURSE HAND-OFF REPORT: Important Events on Shift: low grade fever, WBC- 14.3, Hgb 8.7- Draw asked to redraw- LAB aware. Previously picc line draw Patient Status: Stable Diet: Osmolite 1.5 @ 20cc/ hr Pending Orders: None Pending Results/Labs:None Pending MD notification: None Latest Vital Signs: Temperature 97.8 , Pulse 81 , B/P 122 /72 , Respiratory Rate 20 , O2 SAT 95 , Mechanical Ventilator, O2 Flow Rate 80.0 . Vital Sign Comment: low grade fever EKG Rhythm: Sinus Rhythm Rhythm change?: N MD Notified?: - MD Response: Latest Ackerman Fall Score: 60 Fall Risk: High Risk Safety Measures: Call light Within Reach, Bed Alarm Zone 3, Side Rails Side Rails x3, Bed position Low and Locked. Fall Precautions: Yellow Socks Report given to [ZeeRN/ ChaseRN].
[2020-08-02 08:00] VITALS: BP 123/64
[2020-08-02] MEDS ORDERED: Acetaminophen 650mg/20.3ml GT PRN (08:15)
[2020-08-02] MEDS: Pantoprazole Inj IVP SCH (08:41)
[2020-08-02] MEDS: levETIRAcetam 1,000mg/NS100ml 100 ML IVPB SCH ×2 (08:41→21:08)
[2020-08-02 09:04] LABS: BASOPHILS % (AUTO) 0.3 % (0.0-2.0); EOSINOPHILS % (AUTO) 1.1 % (0.0-3.0); HEMATOCRIT 32.8 % (42.0-52.0); HEMOGLOBIN 9.9 G/DL (14.2-18.0); LYMPHOCYTES % (AUTO) 13.6 % (20.0-45.0); MEAN CORPUSCULAR VOLUME 93 FL (80-99); MONOCYTES % (AUTO) 7.5 % (1.0-10.0); NEUTROPHILS % (AUTO) 77.5 % (45.0-75.0); PLATELET COUNT 229 K/UL (150-450); RED BLOOD COUNT 3.52 M/UL (4.70-6.10); RED CELL DISTRIBUTION WIDTH 18.2 % (11.6-14.8); WHITE BLOOD COUNT 16.1 K/UL (4.8-10.8)
[2020-08-02 12:00] VITALS: BP 121/62
--- NOTE | 2020-08-02 12:09 | Critical Care Progress Note ---
Assessment/Plan Assessment/Plan IMPRESSION: ?Possible perforated viscus, possible free peritoneal air, probable sepsis, hyponatremia, acute renal failure, chronic respiratory failure, thickened colon diffuse pneumonia, elevated lactic dehydrogenase, abdominal distention, severe protein-calorie malnutrition, seizure disorder. pneumonia, anemia PLAN care noted monitor acid base transfuse as needed IV antibiotics cultures noted respiratory care Ventilatory support SNF meds supportive care monitor for seizures advance feeds no wean oxygen therapy prognosis critical surgical follow up dc planning soon impression, plan, and exam edited and reviewed in detail care discussed with solar sales manager - Subjective Condition: unchanged EKG Rhythm: Sinus Tachycardia Residuals: minimal Tube Feeding Tolerated: yes I&O: Intake and Output 08/01/20 08/02/20 19:00 07:00 Intake Total 680 ml 1380 ml Output Total 565 ml 450 ml Balance 115 ml 930 ml Free Water 100 ml IV Total 540 ml 1060 ml Tube Feeding 140 ml 220 ml Output Urine Total 565 ml 450 ml Critical Care - Objective Last 24 Hour Vital Signs Date Time Temp Pulse Resp B/P (MAP) Pulse Ox O2 Delivery O2 Flow Rate FiO2 08/02/20 08:02 108 08/02/20 08:00 98.1 76 20 123/64 (83) 95 08/02/20 08:00 80.0 08/02/20 08:00 Mechanical Ventilator 08/02/20 07:03 84 28 60 08/02/20 04:36 81 08/02/20 04:00 97.8 97 20 122/72 (89) 95 08/02/20 04:00 80.0 08/02/20 03:54 81 08/02/20 03:00 80 32 60 08/02/20 00:00 99.3 83 19 132/70 (90) 99 08/02/20 00:00 80.0 08/01/20 23:07 82 25 60 08/01/20 20:00 96.9 83 20 127/61 (83) 98 08/01/20 20:00 Mechanical Ventilator 08/01/20 20:00 64 08/01/20 20:00 Mechanical Ventilator 08/01/20 20:00 80.0 08/01/20 19:32 69 24 60 08/01/20 16:10 80 08/01/20 16:00 97.9 74 23 130/66 (87) 100 08/01/20 16:00 80.0 08/01/20 16:00 Mechanical Ventilator 08/01/20 15:00 74 24 136/67 (90) 100 08/01/20 15:00 63 23 80 08/01/20 14:00 83 24 161/70 (100) 97 08/01/20 13:00 83 24 142/61 (88) 100 08/01/20 12:10 82 Labs: Labs Test 07/30/20 12:23 07/30/20 17:55 07/30/20 18:50 07/30/20 20:20 POC Whole Blood Glucose 151 MG/DL (74-106) Stool Occult Blood Positive (NEGATIVE) White Blood Count 13.8 K/UL (4.8-10.8) Red Blood Count 3.22 M/UL (4.70-6.10) Hemoglobin 9.0 G/DL (14.2-18.0) Hematocrit 28.5 % (42.0-52.0) Mean Corpuscular Volume 88 FL (80-99) Mean Corpuscular Hemoglobin 28.1 PG (27.0-31.0) Mean Corpuscular Hemoglobin Concent 31.7 G/DL (32.0-36.0) Red Cell Distribution Width 18.5 % (11.6-14.8) Platelet Count 184 K/UL (150-450) Mean Platelet Volume 6.8 FL (6.5-10.1) Neutrophils (%) (Auto) 78.1 % (45.0-75.0) Lymphocytes (%) (Auto) 11.5 % (20.0-45.0) Monocytes (%) (Auto) 7.8 % (1.0-10.0) Eosinophils (%) (Auto) 1.8 % (0.0-3.0) Basophils (%) (Auto) 0.8 % (0.0-2.0) Test 07/30/20 21:10 07/31/20 05:05 07/31/20 17:32 07/31/20 21:28 White Blood Count 13.5 K/UL (4.8-10.8) Red Blood Count 3.41 M/UL (4.70-6.10) Hemoglobin 9.7 G/DL (14.2-18.0) Hematocrit 31.4 % (42.0-52.0) Mean Corpuscular Volume 92 FL (80-99) Mean Corpuscular Hemoglobin 28.4 PG (27.0-31.0) Mean Corpuscular Hemoglobin Concent 30.8 G/DL (32.0-36.0) Red Cell Distribution Width 18.2 % (11.6-14.8) Platelet Count 191 K/UL (150-450) Mean Platelet Volume 7.9 FL (6.5-10.1) Neutrophils (%) (Auto) 78.5 % (45.0-75.0) Lymphocytes (%) (Auto) 11.3 % (20.0-45.0) Monocytes (%) (Auto) 7.9 % (1.0-10.0) Eosinophils (%) (Auto) 1.8 % (0.0-3.0) Basophils (%) (Auto) 0.4 % (0.0-2.0) Sodium Level 139 MMOL/L (136-145) Potassium Level 4.5 MMOL/L (3.5-5.1) Chloride Level 109 MMOL/L (98-107) Carbon Dioxide Level 24 MMOL/L (21-32) Anion Gap 6 mmol/L (5-15) Blood Urea Nitrogen 16 mg/dL (7-18) Creatinine 0.9 MG/DL (0.55-1.30) Estimat Glomerular Filtration Rate > 60 mL/min (>60) Glucose Level 185 MG/DL (74-106) Calcium Level 8.4 MG/DL (8.5-10.1) Test 08/01/20 04:00 08/01/20 05:32 08/01/20 20:50 08/02/20 04:00 White Blood Count 13.3 K/UL (4.8-10.8) 14.3 K/UL (4.8-10.8) Red Blood Count 3.61 M/UL (4.70-6.10) 3.12 M/UL (4.70-6.10) Hemoglobin 10.0 G/DL (14.2-18.0) 8.7 G/DL (14.2-18.0) Hematocrit 33.2 % (42.0-52.0) 29.1 % (42.0-52.0) Mean Corpuscular Volume 92 FL (80-99) 93 FL (80-99) Mean Corpuscular Hemoglobin 27.7 PG (27.0-31.0) 28.0 PG (27.0-31.0) Mean Corpuscular Hemoglobin Concent 30.0 G/DL (32.0-36.0) 30.0 G/DL (32.0-36.0) Red Cell Distribution Width 18.2 % (11.6-14.8) 18.3 % (11.6-14.8) Platelet Count 205 K/UL (150-450) 209 K/UL (150-450) Mean Platelet Volume 7.1 FL (6.5-10.1) 7.2 FL (6.5-10.1) Neutrophils (%) (Auto) 76.7 % (45.0-75.0) 79.7 % (45.0-75.0) Lymphocytes (%) (Auto) 14.8 % (20.0-45.0) 10.5 % (20.0-45.0) Monocytes (%) (Auto) 6.7 % (1.0-10.0) 8.7 % (1.0-10.0) Eosinophils (%) (Auto) 1.5 % (0.0-3.0) 0.8 % (0.0-3.0) Basophils (%) (Auto) 0.4 % (0.0-2.0) 0.3 % (0.0-2.0) Sodium Level 144 MMOL/L (136-145) 148 MMOL/L (136-145) Potassium Level 4.1 MMOL/L (3.5-5.1) 3.3 MMOL/L (3.5-5.1) Chloride Level 111 MMOL/L (98-107) 116 MMOL/L (98-107) Carbon Dioxide Level 25 MMOL/L (21-32) 24 MMOL/L (21-32) Anion Gap 8 mmol/L (5-15) 8 mmol/L (5-15) Blood Urea Nitrogen 11 mg/dL (7-18) 8 mg/dL (7-18) Creatinine 0.9 MG/DL (0.55-1.30) 0.9 MG/DL (0.55-1.30) Estimat Glomerular Filtration Rate > 60 mL/min (>60) > 60 mL/min (>60) Glucose Level 164 MG/DL (74-106) 226 MG/DL (74-106) Calcium Level 8.4 MG/DL (8.5-10.1) 7.3 MG/DL (8.5-10.1) Total Bilirubin 0.4 MG/DL (0.2-1.0) 0.4 MG/DL (0.2-1.0) Aspartate Amino Transf (AST/SGOT) 21 U/L (15-37) 22 U/L (15-37) Alanine Aminotransferase (ALT/SGPT) 20 U/L (12-78) 15 U/L (12-78) Alkaline Phosphatase 148 U/L (46-116) 114 U/L (46-116) Total Protein 7.8 G/DL (6.4-8.2) 6.9 G/DL (6.4-8.2) Albumin 1.7 G/DL (3.4-5.0) 1.4 G/DL (3.4-5.0) Globulin 6.1 g/dL 5.5 g/dL Albumin/Globulin Ratio 0.3 (1.0-2.7) 0.3 (1.0-2.7) POC Whole Blood Glucose 170 MG/DL (74-106) 194 MG/DL (74-106) Test 08/02/20 05:27 08/02/20 08:50 08/02/20 11:34 POC Whole Blood Glucose 199 MG/DL (74-106) 213 MG/DL (74-106) White Blood Count 16.1 K/UL (4.8-10.8) Red Blood Count 3.52 M/UL (4.70-6.10) Hemoglobin 9.9 G/DL (14.2-18.0) Hematocrit 32.8 % (42.0-52.0) Mean Corpuscular Volume 93 FL (80-99) Mean Corpuscular Hemoglobin 28.1 PG (27.0-31.0) Mean Corpuscular Hemoglobin Concent 30.2 G/DL (32.0-36.0) Red Cell Distribution Width 18.2 % (11.6-14.8) Platelet Count 229 K/UL (150-450) Mean Platelet Volume 6.9 FL (6.5-10.1) Neutrophils (%) (Auto) 77.5 % (45.0-75.0) Lymphocytes (%) (Auto) 13.6 % (20.0-45.0) Monocytes (%) (Auto) 7.5 % (1.0-10.0) Eosinophils (%) (Auto) 1.1 % (0.0-3.0) Basophils (%) (Auto) 0.3 % (0.0-2.0) Objective: GENERAL: An ill-appearing male, chronically ill. HEENT: Negative. Tracheostomy midline. The patient is with chronic tongue protrusion. LUNGS: Coarse breath sounds. moderate breath sounds CARDIAC: S1, S2. Regular rate and rhythm. ABDOMEN: Distended. Poor bowel sounds. EXTREMITIES: No cyanosis or clubbing. There is mild edema. NEUROLOGIC: Poorly responsive to pain. Micro: Microbiology Date/Time Source Procedure Growth Status 07/30/20 18:50 Stool Clostridium difficile Toxin Assay - Final Complete Accucheck: 213 Bakari Montanez MD Aug 02, 2020 12:09
--- NOTE | 2020-08-02 12:11 | Infectious Diseases Prog Note ---
Assessment/Plan Assessment/Plan antibiotics : unasyn 07.31.20 - A 1. acenitobacter pneumonia COVID 19 negative 2. respiratory failure 3. colitis 4. UTI 5. diabetes mellitus 6. hypertension 7. COPD P 1. continue unasyn 7 more days 2. will follow up cultures Subjective ROS Limited/Unobtainable: Yes Allergies: Coded Allergies: No Known Allergies (Unverified , 07/04/18) Objective Last 24 Hour Vital Signs Date Time Temp Pulse Resp B/P (MAP) Pulse Ox O2 Delivery O2 Flow Rate FiO2 08/02/20 08:02 108 08/02/20 08:00 98.1 76 20 123/64 (83) 95 08/02/20 08:00 80.0 08/02/20 08:00 Mechanical Ventilator 08/02/20 07:03 84 28 60 08/02/20 04:36 81 08/02/20 04:00 97.8 97 20 122/72 (89) 95 08/02/20 04:00 80.0 08/02/20 03:54 81 08/02/20 03:00 80 32 60 08/02/20 00:00 99.3 83 19 132/70 (90) 99 08/02/20 00:00 80.0 08/01/20 23:07 82 25 60 08/01/20 20:00 96.9 83 20 127/61 (83) 98 08/01/20 20:00 Mechanical Ventilator 08/01/20 20:00 64 08/01/20 20:00 Mechanical Ventilator 08/01/20 20:00 80.0 08/01/20 19:32 69 24 60 08/01/20 16:10 80 08/01/20 16:00 97.9 74 23 130/66 (87) 100 08/01/20 16:00 80.0 08/01/20 16:00 Mechanical Ventilator 08/01/20 15:00 74 24 136/67 (90) 100 08/01/20 15:00 63 23 80 08/01/20 14:00 83 24 161/70 (100) 97 08/01/20 13:00 83 24 142/61 (88) 100 Height (Feet): 5 Height (Inches): 11.00 Weight (Pounds): 180 HEENT: status post trach Respiratory/Chest: lungs clear Cardiovascular: normal rate, regular rhythm, no gallop/murmur Abdomen: soft, non tender, other - GT Extremities: other - + edema, right arm PICC Microbiology Date/Time Source Procedure Growth Status 07/30/20 18:50 Stool Clostridium difficile Toxin Assay - Final Complete Laboratory Tests Test 08/01/20 20:50 08/02/20 04:00 08/02/20 05:27 08/02/20 08:50 POC Whole Blood Glucose 194 MG/DL (74-106) H 199 MG/DL (74-106) H White Blood Count 14.3 K/UL (4.8-10.8) H 16.1 K/UL (4.8-10.8) H Red Blood Count 3.12 M/UL (4.70-6.10) L 3.52 M/UL (4.70-6.10) L Hemoglobin 8.7 G/DL (14.2-18.0) L 9.9 G/DL (14.2-18.0) L Hematocrit 29.1 % (42.0-52.0) L 32.8 % (42.0-52.0) L Mean Corpuscular Volume 93 FL (80-99) 93 FL (80-99) Mean Corpuscular Hemoglobin 28.0 PG (27.0-31.0) 28.1 PG (27.0-31.0) Mean Corpuscular Hemoglobin Concent 30.0 G/DL (32.0-36.0) L 30.2 G/DL (32.0-36.0) L Red Cell Distribution Width 18.3 % (11.6-14.8) H 18.2 % (11.6-14.8) H Platelet Count 209 K/UL (150-450) 229 K/UL (150-450) Mean Platelet Volume 7.2 FL (6.5-10.1) 6.9 FL (6.5-10.1) Neutrophils (%) (Auto) 79.7 % (45.0-75.0) H 77.5 % (45.0-75.0) H Lymphocytes (%) (Auto) 10.5 % (20.0-45.0) L 13.6 % (20.0-45.0) L Monocytes (%) (Auto) 8.7 % (1.0-10.0) 7.5 % (1.0-10.0) Eosinophils (%) (Auto) 0.8 % (0.0-3.0) 1.1 % (0.0-3.0) Basophils (%) (Auto) 0.3 % (0.0-2.0) 0.3 % (0.0-2.0) Sodium Level 148 MMOL/L (136-145) H Potassium Level 3.3 MMOL/L (3.5-5.1) L Chloride Level 116 MMOL/L (98-107) H Carbon Dioxide Level 24 MMOL/L (21-32) Anion Gap 8 mmol/L (5-15) Blood Urea Nitrogen 8 mg/dL (7-18) Creatinine 0.9 MG/DL (0.55-1.30) Estimat Glomerular Filtration Rate > 60 mL/min (>60) Glucose Level 226 MG/DL (74-106) H Calcium Level 7.3 MG/DL (8.5-10.1) L Total Bilirubin 0.4 MG/DL (0.2-1.0) Aspartate Amino Transf (AST/SGOT) 22 U/L (15-37) Alanine Aminotransferase (ALT/SGPT) 15 U/L (12-78) Alkaline Phosphatase 114 U/L (46-116) Total Protein 6.9 G/DL (6.4-8.2) Albumin 1.4 G/DL (3.4-5.0) L Globulin 5.5 g/dL Albumin/Globulin Ratio 0.3 (1.0-2.7) L Test 08/02/20 11:34 POC Whole Blood Glucose 213 MG/DL (74-106) H Current Medications Medications (Trade) Dose Ordered Sig/Derrick Route PRN Reason Start Time Stop Time Status Last Admin Dose Admin Acetaminophen (Tylenol) 650 mg Q4H PRN RECTAL Mild Pain (Pain Scale 1-3) 07/28/20 21:15 08/27/20 21:14 08/02/20 00:11 Acetaminophen (Tylenol) 650 mg Q6H PRN GT Temp >100.5 08/02/20 08:15 09/01/20 07:59 Ampicillin Sodium/ Sulbactam Sodium 3 gm/Sodium Chloride 110 ml @ 220 mls/hr Q6HR IVPB 07/31/20 13:00 08/07/20 12:59 08/02/20 11:49 Chlorhexidine Gluconate (Gwendolyn-Hex 2%) 1 applic DAILY@2000 TOPIC 07/30/20 20:00 10/28/20 19:59 08/01/20 20:00 Clonidine HCl (Catapres Tab) 0.1 mg Q4H PRN ORAL For High Blood Pressure 07/28/20 21:15 10/26/20 21:14 Dextrose (Dextrose 50%) 25 ml Q30M PRN IV Hypoglycemia 08/02/20 10:15 10/31/20 10:14 Dextrose (Dextrose 50%) 50 ml Q30M PRN IV Hypoglycemia 08/02/20 10:15 10/31/20 10:14 Dextrose/Sodium Chloride 1,000 ml @ 30 mls/hr Q24H IV 07/30/20 15:45 08/29/20 15:44 08/01/20 16:01 Insulin Aspart (NovoLOG) per nurse, pt now on g-t... Q6HR SUBQ 08/02/20 12:00 10/31/20 11:59 08/02/20 11:41 Levetiracetam 100 ml @ 400 mls/hr Q12HR IVPB 07/28/20 21:15 10/26/20 21:14 08/02/20 08:41 Pantoprazole (Protonix) 40 mg DAILY IVP 07/29/20 09:00 08/28/20 08:59 08/02/20 08:41 Rosalinda Guerrero MD Aug 02, 2020 12:11
--- NOTE | 2020-08-02 13:52 | Surgery Progress Note ---
Surgery Progress Note Subjective Additional Comments leukocytosis anemia trach okay no seizures Objective Last 24 Hour Vital Signs Date Time Temp Pulse Resp B/P (MAP) Pulse Ox O2 Delivery O2 Flow Rate FiO2 08/02/20 12:00 80.0 08/02/20 12:00 96.7 91 18 121/62 (81) 92 08/02/20 12:00 87 08/02/20 10:52 78 26 60 08/02/20 10:46 62 31 100 Mechanical Ventilator 65.0 100 08/02/20 08:02 108 08/02/20 08:00 98.1 76 20 123/64 (83) 95 08/02/20 08:00 80.0 08/02/20 08:00 Mechanical Ventilator 08/02/20 07:03 84 28 60 08/02/20 04:36 81 08/02/20 04:00 97.8 97 20 122/72 (89) 95 08/02/20 04:00 80.0 08/02/20 03:54 81 08/02/20 03:00 80 32 60 08/02/20 00:00 99.3 83 19 132/70 (90) 99 08/02/20 00:00 80.0 08/01/20 23:07 82 25 60 08/01/20 20:00 96.9 83 20 127/61 (83) 98 08/01/20 20:00 Mechanical Ventilator 08/01/20 20:00 64 08/01/20 20:00 Mechanical Ventilator 08/01/20 20:00 80.0 08/01/20 19:32 69 24 60 08/01/20 16:10 80 08/01/20 16:00 97.9 74 23 130/66 (87) 100 08/01/20 16:00 80.0 08/01/20 16:00 Mechanical Ventilator 08/01/20 15:00 74 24 136/67 (90) 100 08/01/20 15:00 63 23 80 08/01/20 14:00 83 24 161/70 (100) 97 I&O Intake and Output 08/01/20 08/02/20 19:00 07:00 Intake Total 680 ml 1410 ml Output Total 565 ml 450 ml Balance 115 ml 960 ml Free Water 100 ml IV Total 540 ml 1090 ml Tube Feeding 140 ml 220 ml Output Urine Total 565 ml 450 ml Dressing: saturated Cardiovascular: RSR Respiratory: decreased breath sounds Abdomen: soft, non-tender, present bowel sounds Extremities: no tenderness, no cyanosis Laboratory Tests Test 08/01/20 20:50 08/02/20 04:00 08/02/20 05:27 08/02/20 08:50 POC Whole Blood Glucose 194 MG/DL (74-106) H 199 MG/DL (74-106) H White Blood Count 14.3 K/UL (4.8-10.8) H 16.1 K/UL (4.8-10.8) H Red Blood Count 3.12 M/UL (4.70-6.10) L 3.52 M/UL (4.70-6.10) L Hemoglobin 8.7 G/DL (14.2-18.0) L 9.9 G/DL (14.2-18.0) L Hematocrit 29.1 % (42.0-52.0) L 32.8 % (42.0-52.0) L Mean Corpuscular Volume 93 FL (80-99) 93 FL (80-99) Mean Corpuscular Hemoglobin 28.0 PG (27.0-31.0) 28.1 PG (27.0-31.0) Mean Corpuscular Hemoglobin Concent 30.0 G/DL (32.0-36.0) L 30.2 G/DL (32.0-36.0) L Red Cell Distribution Width 18.3 % (11.6-14.8) H 18.2 % (11.6-14.8) H Platelet Count 209 K/UL (150-450) 229 K/UL (150-450) Mean Platelet Volume 7.2 FL (6.5-10.1) 6.9 FL (6.5-10.1) Neutrophils (%) (Auto) 79.7 % (45.0-75.0) H 77.5 % (45.0-75.0) H Lymphocytes (%) (Auto) 10.5 % (20.0-45.0) L 13.6 % (20.0-45.0) L Monocytes (%) (Auto) 8.7 % (1.0-10.0) 7.5 % (1.0-10.0) Eosinophils (%) (Auto) 0.8 % (0.0-3.0) 1.1 % (0.0-3.0) Basophils (%) (Auto) 0.3 % (0.0-2.0) 0.3 % (0.0-2.0) Sodium Level 148 MMOL/L (136-145) H Potassium Level 3.3 MMOL/L (3.5-5.1) L Chloride Level 116 MMOL/L (98-107) H Carbon Dioxide Level 24 MMOL/L (21-32) Anion Gap 8 mmol/L (5-15) Blood Urea Nitrogen 8 mg/dL (7-18) Creatinine 0.9 MG/DL (0.55-1.30) Estimat Glomerular Filtration Rate > 60 mL/min (>60) Glucose Level 226 MG/DL (74-106) H Calcium Level 7.3 MG/DL (8.5-10.1) L Total Bilirubin 0.4 MG/DL (0.2-1.0) Aspartate Amino Transf (AST/SGOT) 22 U/L (15-37) Alanine Aminotransferase (ALT/SGPT) 15 U/L (12-78) Alkaline Phosphatase 114 U/L (46-116) Total Protein 6.9 G/DL (6.4-8.2) Albumin 1.4 G/DL (3.4-5.0) L Globulin 5.5 g/dL Albumin/Globulin Ratio 0.3 (1.0-2.7) L Test 08/02/20 11:34 POC Whole Blood Glucose 213 MG/DL (74-106) H Plan Problems: (1) Sepsis Assessment & Plan: 75M. cxr with possible free air. ct done and noted. abd distended. exam limited leukocytosis abnormal labs improving with fluids trach malfunction now improved on vent support cont current care will monitor and follow with recs PICC line trend labs transfuse prbc prn trach leak needs trach change ABDOMEN: Liver: Unremarkable. Gallbladder and bile ducts: Unremarkable. No calcified stones. Pancreas: Unremarkable. Spleen: Unremarkable. Adrenals: Unremarkable. Kidneys and ureters: Unremarkable. No hydronephrosis. Stomach and bowel: Mildly thickened sigmoid colon which may be underdistention, chronic, colitis, versus lesion. Colonic air-distention which may be ileus. No bowel obstruction or diverticulitis. PELVIS: Appendix: No findings to suggest acute appendicitis. Bladder: Thickened bladder which may be chronic, cystitis, versus lesion. Vera catheter in the bladder. Reproductive: Unremarkable as visualized. ABDOMEN and PELVIS: Intraperitoneal space: No free air. Bones/joints: No acute fracture. Soft tissues: Unremarkable. Vasculature: Unremarkable. Lymph nodes: Unremarkable. Tubes, lines and devices: Gastrostomy tube in the stomach. IMPRESSION: 1. Mildly thickened sigmoid colon which may be underdistention, chronic, colitis, versus lesion. Colonic air-distention which may be ileus. No bowel obstruction or diverticulitis. 2. Thickened bladder which may be chronic, cystitis, versus lesion. 3. Bibasilar infiltrates. Small left pleural effusion. (2) Pneumonia (3) Free intraperitoneal air Assessment & Plan: Apparent lucency underlying the right hemidiaphragm. This may potentially be artifactual. Recommend correlation with CT of the abdomen to exclude the possibility of free peritoneal air, particularly if there is a history of abdominal pain. Extensive interstitial and alveolar infiltrates concerning for multifocal pneumonia. Possibility of underlying chronic interstitial/chronic lung disease and scarring can also be considered. Indwelling tracheostomy tube. (4) Perforated abdominal viscus Assessment & Plan: CT reviewed no free air artifact on cxr abd distended cannot tell tender given condition will monitor (5) Decubitus skin ulcer (6) Hyperglycemia (7) Leukocytosis (8) GIB (gastrointestinal bleeding) (9) POPPY (acute kidney injury) (10) Dyspnea (11) Respiratory distress Assessment & Plan: trach changed 6f shiley stable now ShayyAbdoul Aug 02, 2020 13:52
--- NOTE | 2020-08-02 15:10 | NUR ---
NURSE NOTES: Notified Dr. Montanez regarding patient's HR reaching up to 130s. Patient is agitated after being suctioned and fighting the ventilator per RT. Awaiting for doctor's response.
--- NOTE | 2020-08-02 15:12 | NUR ---
CASE MANAGEMENT:REVIEW 08/02/20 SI: SEPSIS. PNA. PERF ABD VISCUS TRACH/VENT/GT DEPENDENT 96.7 91 18 121/62 92% ON VENT W/80% FIO2 WBC+16.1 K-3.3 IS: IV AMPICILLIN Q6HRS IVF@30/HR IV PROTONIX QD IV KEPPRA Q12 : STEP DOWN UNIT DCP: FROM [facility] PLAN: PER SURGEON ~ MONITOR PERFORATION
[2020-08-02] MEDS ORDERED: LORazepam Inj 2mg/ml 1ml IV PRN (15:15)
[2020-08-02] MEDS: D5NS 1,000 ML IV SCH (15:48)
[2020-08-02 16:00] VITALS: BP 128/60
--- NOTE | 2020-08-02 16:32 | General Progress Note ---
Subjective ROS Limited/Unobtainable: Yes Constitutional: Reports: malaise, weakness HEENT: Reports: no symptoms Cardiovascular: Reports: edema Respiratory: Reports: shortness of breath, sputum Gastrointestinal/Abdominal: Reports: difficulty swallowing Genitourinary: Reports: no symptoms Neurologic/Psychiatric: Reports: pre-existing deficit Endocrine: Reports: no symptoms Hematologic/Lymphatic: Reports: anemia Allergies: Coded Allergies: No Known Allergies (Unverified , 07/04/18) All Systems: reviewed and negative except above Subjective no events. stable on the vent. no fever or chills. no congestion. tolerating feeds. tolerating po, facial twitching. on sz rx. Objective Last 24 Hour Vital Signs Date Time Temp Pulse Resp B/P (MAP) Pulse Ox O2 Delivery O2 Flow Rate FiO2 08/02/20 16:00 80.0 08/02/20 15:31 115 28 135/68 94 08/02/20 15:13 116 08/02/20 15:10 80 24 60 08/02/20 12:00 80.0 08/02/20 12:00 96.7 91 18 121/62 (81) 92 08/02/20 12:00 87 08/02/20 10:52 78 26 60 08/02/20 10:46 62 31 100 Mechanical Ventilator 65.0 100 08/02/20 08:02 108 08/02/20 08:00 98.1 76 20 123/64 (83) 95 08/02/20 08:00 80.0 08/02/20 08:00 Mechanical Ventilator 08/02/20 07:03 84 28 60 08/02/20 04:36 81 08/02/20 04:00 97.8 97 20 122/72 (89) 95 08/02/20 04:00 80.0 08/02/20 03:54 81 08/02/20 03:00 80 32 60 08/02/20 00:00 99.3 83 19 132/70 (90) 99 08/02/20 00:00 80.0 08/01/20 23:07 82 25 60 08/01/20 20:00 96.9 83 20 127/61 (83) 98 08/01/20 20:00 Mechanical Ventilator 08/01/20 20:00 64 08/01/20 20:00 Mechanical Ventilator 08/01/20 20:00 80.0 08/01/20 19:32 69 24 60 Intake and Output 08/01/20 08/02/20 19:00 07:00 Intake Total 680 ml 1410 ml Output Total 565 ml 450 ml Balance 115 ml 960 ml Free Water 100 ml IV Total 540 ml 1090 ml Tube Feeding 140 ml 220 ml Output Urine Total 565 ml 450 ml Laboratory Tests 08/01/20 20:50: POC Whole Blood Glucose 194H 08/02/20 04:00: White Blood Count 14.3H, Red Blood Count 3.12L, Hemoglobin 8.7L, Hematocrit 29.1 L, Mean Corpuscular Volume 93, Mean Corpuscular Hemoglobin 28.0, Mean Corpuscular Hemoglobin Concent 30.0L, Red Cell Distribution Width 18.3H, Platelet Count 209, Mean Platelet Volume 7.2, Neutrophils (%) (Auto) 79.7H, Lymphocytes (%) (Auto) 10.5L, Monocytes (%) (Auto) 8.7, Eosinophils (%) (Auto) 0.8, Basophils (%) (Auto) 0.3, Sodium Level 148H, Potassium Level 3.3L, Chloride Level 116H, Carbon Dioxide Level 24, Anion Gap 8, Blood Urea Nitrogen 8, Creatinine 0.9, Estimat Glomerular Filtration Rate > 60, Glucose Level 226H, Calcium Level 7.3L, Total Bilirubin 0.4, Aspartate Amino Transf (AST/SGOT) 22, Alanine Aminotransferase (ALT/SGPT) 15, Alkaline Phosphatase 114, Total Protein 6.9, Albumin 1.4L, Globulin 5.5, Albumin/Globulin Ratio 0.3L 08/02/20 05:27: POC Whole Blood Glucose 199H 08/02/20 08:50: White Blood Count 16.1H, Red Blood Count 3.52L, Hemoglobin 9.9L, Hematocrit 32.8L, Mean Corpuscular Volume 93, Mean Corpuscular Hemoglobin 28.1, Mean Storm uscular Hemoglobin Concent 30.2L, Red Cell Distribution Width 18.2H, Platelet Count 229, Mean Platelet Volume 6.9, Neutrophils (%) (Auto) 77.5H, Lymphocytes (%) (Auto) 13.6L, Monocytes (%) (Auto) 7.5, Eosinophils (%) (Auto) 1.1, Basophils (%) (Auto) 0.3 08/02/20 11:34: POC Whole Blood Glucose 213H Height (Feet): 5 Height (Inches): 11.00 Weight (Pounds): 180 Objective General Appearance: WD/WN, lethargic, confused EENT: PERRL/EOMI Neck: non-tender, normal alignment Cardiovascular: normal peripheral pulses, normal rate Respiratory/Chest: chest wall non-tender, lungs clear, normal breath sounds, no respiratory distress Abdomen: normal bowel sounds, non tender, soft, no organomegaly Extremities: normal range of motion Neurologic: disoriented, unresponsive, aphasia Skin: normal pigmentation Assessment/Plan Problem List: (1) Sepsis ICD Codes: A41.9 - Sepsis, unspecified organism SNOMED: 28830534 (2) Pneumonia ICD Codes: J18.9 - Pneumonia, unspecified organism SNOMED: 559159151 (3) Leukocytosis ICD Codes: D72.829 - Elevated white blood cell count, unspecified SNOMED: 221951926, 033644534 (4) POPPY (acute kidney injury) ICD Codes: N17.9 - Acute kidney failure, unspecified SNOMED: 1671842, 72765463 (5) Dyspnea ICD Codes: R06.00 - Dyspnea, unspecified SNOMED: 113711840 (6) Respiratory distress ICD Codes: R06.03 - Acute respiratory distress SNOMED: 958066010 Status: stable, not improved Assessment/Plan: tube feeds Continue broad-spectrum IV antibiotics per id Monitor H&H Transfuse as needed PPI treatment Stool for occult blood Continue vent support Breathing treatments and suctioning as needed Monitor electrolytes Turn every 2 hours Continue seizure treatment Tube feeds Chano Galeana MD Aug 02, 2020 16:32
--- NOTE | 2020-08-02 19:30 | NUR ---
NURSE HAND-OFF REPORT: Important Events on Shift: Patient's HR increases when he gets suctioned. Ordered Ativan from Doctor. Patient Status: Diet: Pending Orders: Pending Results/Labs: Pending MD notification: Latest Vital Signs: Temperature 98.1 , Pulse 83 , B/P 128 /60 , Respiratory Rate 20 , O2 SAT 96 , Mechanical Ventilator, O2 Flow Rate 80.0 . Vital Sign Comment: EKG Rhythm: Sinus Rhythm Rhythm change?: N MD Notified?: - MD Response: Latest Ackerman Fall Score: 60 Fall Risk: High Risk Safety Measures: Call light Within Reach, Bed Alarm Zone 3, Side Rails Side Rails x3, Bed position Low and Locked. Fall Precautions: Yellow Socks Report given to Maikel RN.
--- NOTE | 2020-08-02 19:35 | NUR ---
NURSE NOTES: Received report from Chris RN. Pt is lying in bed in semi- niño's position, Obtunded. Pt has facial ticks noted. Contracted on Both upper extremities.In no apparent cardiac and respiratory distress noted. Trach to vent with tolerating prescribed settings, and saturating well. With Gtube running Osmolite 1.5 at 20 cc, no residual noted. With [place] catheter intact, patent and draining well, No any signs of pain noted. Safety measures in placed, Bed in lowest position, break engaged and locked. Call light within reach. Continue to plan of care
[2020-08-02 20:00] VITALS: BP 124/69
[2020-08-02] MEDS: Dyna-Hex 2% Top Sol 2oz TOPIC SCH (20:29)
--- NOTE | 2020-08-02 21:00 | NUR ---
NURSE NOTES: noted elevated temp of 102.2.
[2020-08-02] MEDS: Acetaminophen 650mg/20.3ml GT PRN (21:08)
--- NOTE | 2020-08-02 21:08 | NUR ---
NURSE NOTES: Tylenol 650mg given via gtube for elevated temp.
--- NOTE | 2020-08-02 21:38 | NUR ---
NURSE NOTES: Reassessment done temp is still elevated, 101.1 Cooling measures applied. Will continue to monitor.
--- NOTE | 2020-08-03 | NUR ---
NURSE NOTES: Oral care provided. Turned and repositioned pt. Cooling measures reinforced. Will continue to monitor
--- NOTE | 2020-08-03 02:15 | NUR ---
NURSE NOTES: Pt in bed, in no apparent cardiac and respiratory distress noted. Oral care provided, sponge bath given, gown changed, kept cleaned and dry. Cooling measures reinforced . Will continue plan of care and monitor patient
--- NOTE | 2020-08-03 03:05 | NUR ---
RESPIRATORY NOTE: PT REMAINED STABLE ON CMV WITH CURRENT SETTINGS. VENT CIRCUIT IS SECURE AND OUT OF THE WAY. PT SX PRN. AIRWAY IS MIDLINE, SECURE AND PATENT. NO S/S OF RESPIRATORY DISTRESS NOTED AT THIS TIME.
--- NOTE | 2020-08-03 03:16 | Cardiology Progress Note ---
Subjective DATE OF SERVICE: Aug 02, 2020 On vent support No hypoxia Tolerating tube feedings Some facial twitching noted Monitor: sinus with occ PAC's Objective Last 24 Hour Vital Signs Date Time Temp Pulse Resp B/P (MAP) Pulse Ox O2 Delivery O2 Flow Rate FiO2 08/03/20 00:23 92 08/03/20 00:00 80.0 08/02/20 23:10 79 27 60 08/02/20 21:38 101.1 08/02/20 20:00 80.0 08/02/20 20:00 100 08/02/20 20:00 102.2 96 27 124/69 (87) 97 08/02/20 18:55 82 26 60 08/02/20 16:01 83 20 128/60 96 08/02/20 16:00 80.0 08/02/20 16:00 98.1 83 20 128/60 (82) 96 08/02/20 15:31 115 28 135/68 94 08/02/20 15:13 116 08/02/20 15:10 80 24 60 08/02/20 12:00 80.0 08/02/20 12:00 96.7 91 18 121/62 (81) 92 08/02/20 12:00 87 08/02/20 10:52 78 26 60 08/02/20 10:46 62 31 100 Mechanical Ventilator 65.0 100 08/02/20 08:02 108 08/02/20 08:00 98.1 76 20 123/64 (83) 95 08/02/20 08:00 80.0 08/02/20 08:00 Mechanical Ventilator 08/02/20 07:03 84 28 60 08/02/20 04:36 81 08/02/20 04:00 97.8 97 20 122/72 (89) 95 08/02/20 04:00 80.0 08/02/20 03:54 81 ROS: unchanged HEENT: Thin Trach secretions, other - protruding tongue RHYTHM: NSR, PACs LUNGS: left-sided rhonchi CARDIAC: normal rate, regular rhythm, normal S1 and S2 ABDOMEN: normal bowel sounds, non tender, soft, no organomegaly, G-Tube intact EXTREMITIES: normal range of motion, no calf tenderness, trace edema Laboratory Tests Test 08/02/20 04:00 08/02/20 05:27 08/02/20 08:50 08/02/20 11:34 White Blood Count 14.3 K/UL (4.8-10.8) H 16.1 K/UL (4.8-10.8) H Red Blood Count 3.12 M/UL (4.70-6.10) L 3.52 M/UL (4.70-6.10) L Hemoglobin 8.7 G/DL (14.2-18.0) L 9.9 G/DL (14.2-18.0) L Hematocrit 29.1 % (42.0-52.0) L 32.8 % (42.0-52.0) L Mean Corpuscular Volume 93 FL (80-99) 93 FL (80-99) Mean Corpuscular Hemoglobin 28.0 PG (27.0-31.0) 28.1 PG (27.0-31.0) Mean Corpuscular Hemoglobin Concent 30.0 G/DL (32.0-36.0) L 30.2 G/DL (32.0-36.0) L Red Cell Distribution Width 18.3 % (11.6-14.8) H 18.2 % (11.6-14.8) H Platelet Count 209 K/UL (150-450) 229 K/UL (150-450) Mean Platelet Volume 7.2 FL (6.5-10.1) 6.9 FL (6.5-10.1) Neutrophils (%) (Auto) 79.7 % (45.0-75.0) H 77.5 % (45.0-75.0) H Lymphocytes (%) (Auto) 10.5 % (20.0-45.0) L 13.6 % (20.0-45.0) L Monocytes (%) (Auto) 8.7 % (1.0-10.0) 7.5 % (1.0-10.0) Eosinophils (%) (Auto) 0.8 % (0.0-3.0) 1.1 % (0.0-3.0) Basophils (%) (Auto) 0.3 % (0.0-2.0) 0.3 % (0.0-2.0) Sodium Level 148 MMOL/L (136-145) H Potassium Level 3.3 MMOL/L (3.5-5.1) L Chloride Level 116 MMOL/L (98-107) H Carbon Dioxide Level 24 MMOL/L (21-32) Anion Gap 8 mmol/L (5-15) Blood Urea Nitrogen 8 mg/dL (7-18) Creatinine 0.9 MG/DL (0.55-1.30) Estimat Glomerular Filtration Rate > 60 mL/min (>60) Glucose Level 226 MG/DL (74-106) H Calcium Level 7.3 MG/DL (8.5-10.1) L Total Bilirubin 0.4 MG/DL (0.2-1.0) Aspartate Amino Transf (AST/SGOT) 22 U/L (15-37) Alanine Aminotransferase (ALT/SGPT) 15 U/L (12-78) Alkaline Phosphatase 114 U/L (46-116) Total Protein 6.9 G/DL (6.4-8.2) Albumin 1.4 G/DL (3.4-5.0) L Globulin 5.5 g/dL Albumin/Globulin Ratio 0.3 (1.0-2.7) L POC Whole Blood Glucose 199 MG/DL (74-106) H 213 MG/DL (74-106) H Test 08/02/20 17:59 08/02/20 23:10 POC Whole Blood Glucose 159 MG/DL (74-106) H 220 MG/DL (74-106) H Assessment/Plan Assessment/Plan Sepsis Respiratory failure Chronic encephalopathy Paroxysmal atrial ectopy Anemia Dehydration/hypernatremia Hypokalemia Severe protein/calorie malnutrition Antimicrobials Anti-sz medx Vent support Protein suppl Free water by IV route Potassium suppl; check Mg++ DVT prophyl [place] MD Aug 03, 2020 03:16
[2020-08-03 04:00] VITALS: BP 119/62
[2020-08-03] MEDS: Unasyn 3gm in NS 110ml IVPB SCH ×4 (05:07→23:40)
[2020-08-03] MEDS: NovoLOG Insulin Flexpen SUBQ SCH ×4 (05:16→23:49)
[2020-08-03 05:51] LABS: BASOPHILS % (AUTO) 0.5 % (0.0-2.0); EOSINOPHILS % (AUTO) 1.8 % (0.0-3.0); HEMATOCRIT 31.4 % (42.0-52.0); HEMOGLOBIN 9.4 G/DL (14.2-18.0); LYMPHOCYTES % (AUTO) 16.3 % (20.0-45.0); MEAN CORPUSCULAR VOLUME 94 FL (80-99); MONOCYTES % (AUTO) 7.7 % (1.0-10.0); NEUTROPHILS % (AUTO) 73.8 % (45.0-75.0); PLATELET COUNT 239 K/UL (150-450); RED BLOOD COUNT 3.34 M/UL (4.70-6.10); WHITE BLOOD COUNT 16.4 K/UL (4.8-10.8)
[2020-08-03 06:15] LABS: ALANINE AMINOTRANSFERASE 13 U/L (12-78); ALBUMIN 1.5 G/DL (3.4-5.0); ALBUMIN/GLOBULIN RATIO 0.2 (1.0-2.7); ALKALINE PHOSPHATASE 102 U/L (46-116); ASPARTATE AMINO TRANSFERASE 23 U/L (15-37); BILIRUBIN,TOTAL 0.5 MG/DL (0.2-1.0); BLOOD UREA NITROGEN 12 mg/dL (7-18); CALCIUM 7.8 MG/DL (8.5-10.1); CARBON DIOXIDE 27 MMOL/L (21-32); CHLORIDE 115 MMOL/L (98-107); POTASSIUM 3.9 MMOL/L (3.5-5.1); SODIUM 148 MMOL/L (136-145)
--- NOTE | 2020-08-03 07:00 | NUR ---
NURSE NOTES: Received patient from MANNY Sidhu. Patient is in bed, obtunded and contracted. Sinus rhythm on the monitor. Patient is on the ventilator at prescribed settings, tolerating well. Patient has a Gtube and tube feeding running at prescribed settings. Bed is in the lowest position and locked, side rails up x2, call light within easy reach. Will continue plan of care.
--- NOTE | 2020-08-03 07:30 | NUR ---
NURSE HAND-OFF REPORT: Important Events on Shift: Stable Patient Status: Stable Diet: Osmolite 1.5 Pending Orders: Pending Results/Labs: Pending MD notification: Latest Vital Signs: Temperature 99.2 , Pulse 82 , B/P 119 /62 , Respiratory Rate 32 , O2 SAT 98 , Mechanical Ventilator, O2 Flow Rate 80.0 . Vital Sign Comment: EKG Rhythm: Sinus Rhythm Rhythm change?: N MD Notified?: - MD Response: Latest Ackerman Fall Score: 60 Fall Risk: High Risk Safety Measures: Call light Within Reach, Bed Alarm Zone 3, Side Rails Side Rails x3, Bed position Low and Locked. Fall Precautions: Yellow Socks Report given to MANNY [place].
--- NOTE | 2020-08-03 08:19 | General Progress Note ---
Subjective ROS Limited/Unobtainable: No Constitutional: Reports: malaise, weakness HEENT: Reports: no symptoms Cardiovascular: Reports: edema Respiratory: Reports: cough, shortness of breath, sputum Gastrointestinal/Abdominal: Reports: difficulty swallowing Genitourinary: Reports: no symptoms Neurologic/Psychiatric: Reports: pre-existing deficit, seizure Endocrine: Reports: no symptoms Hematologic/Lymphatic: Reports: anemia Allergies: Coded Allergies: No Known Allergies (Unverified , 07/04/18) All Systems: reviewed and negative except above Subjective no events. stable on the vent. no fever or chills. mild secretions. tolerating feeds. tolerating po, facial twitching. on sz rx. previous EEG negative. cultures reviewed. on unasyn Objective Last 24 Hour Vital Signs Date Time Temp Pulse Resp B/P (MAP) Pulse Ox O2 Delivery O2 Flow Rate FiO2 08/03/20 04:01 82 08/03/20 04:00 99.2 80 32 119/62 (81) 98 08/03/20 04:00 80.0 08/03/20 03:05 89 30 60 08/03/20 00:23 92 08/03/20 00:00 80.0 08/02/20 23:10 79 27 60 08/02/20 21:38 101.1 08/02/20 20:00 80.0 08/02/20 20:00 100 08/02/20 20:00 102.2 96 27 124/69 (87) 97 08/02/20 18:55 82 26 60 08/02/20 16:01 83 20 128/60 96 08/02/20 16:00 80.0 08/02/20 16:00 98.1 83 20 128/60 (82) 96 08/02/20 15:31 115 28 135/68 94 08/02/20 15:13 116 08/02/20 15:10 80 24 60 08/02/20 12:00 80.0 08/02/20 12:00 96.7 91 18 121/62 (81) 92 08/02/20 12:00 87 08/02/20 10:52 78 26 60 08/02/20 10:46 62 31 100 Mechanical Ventilator 65.0 100 Intake and Output 08/02/20 08/03/20 19:00 07:00 Intake Total 730 ml 630 ml Output Total 350 ml 300 ml Balance 380 ml 330 ml Free Water 130 ml 200 ml IV Total 360 ml 190 ml Tube Feeding 240 ml 240 ml Output Urine Total 350 ml 300 ml Laboratory Tests 08/02/20 08:50: White Blood Count 16.1H, Red Blood Count 3.52L, Hemoglobin 9.9L, Hematocrit 32.8L, Mean Corpuscular Volume 93, Mean Corpuscular Hemoglobin 28.1, Mean Corpuscular Hemoglobin Concent 30.2L, Red Cell Distribution Width 18.2H, Platelet Count 229, Mean Platelet Volume 6.9, Neutrophils (%) (Auto) 77.5H, Lymphocytes (%) (Auto) 13.6L, Monocytes (%) (Auto) 7.5, Eosinophils (%) (Auto) 1.1, Basophils (%) (Auto) 0.3 08/02/20 11:34: POC Whole Blood Glucose 213H 08/02/20 17:59: POC Whole Blood Glucose 159H 08/02/20 23:10: POC Whole Blood Glucose 220H 08/03/20 04:30: White Blood Count 16.4H, Red Blood Count 3.34L, Hemoglobin 9.4L, Hematocrit 31.4L, Mean Corpuscular Volume 94, Mean Corpuscular Hemoglobin 28.0, Mean Corpuscular Hemoglobin Concent 29.9L, Red Cell Distribution Width 18.0H, Platelet Count 239, Mean Platelet Volume 7.2, Neutrophils (%) (Auto) 73.8, Lymphocytes (%) (Auto) 16.3L, Monocytes (%) (Auto) 7.7, Eosinophils (%) (Auto) 1.8, Basophils (%) (Auto) 0.5, Sodium Level 148H, Potassium Level 3.9, Chloride Level 115H, Carbon Dioxide Level 27, Blood Urea Nitrogen 12, Creatinine 1.0, Estimat Glomerular Filtration Rate > 60, Glucose Level 220H, Calcium Level 7.8L, Magnesium Level 1.6L, Total Bilirubin 0.5, Aspartate Amino Transf (AST/SGOT) 23, Alanine Aminotransferase (ALT/SGPT) 13, Alkaline Phosphatase 102, Pro-B-Type Natriuretic Peptide 54851X, Total Protein 7.5, Albumin 1.5L, Globulin 6.0, Albumin/Globulin Ratio 0.2L 08/03/20 05:12: POC Whole Blood Glucose 215H Height (Feet): 5 Height (Inches): 11.00 Weight (Pounds): 180 Objective General Appearance: WD/WN, lethargic, confused EENT: PERRL/EOMI Neck: non-tender, normal alignment Cardiovascular: normal peripheral pulses, normal rate Respiratory/Chest: chest wall non-tender, lungs clear, normal breath sounds, no respiratory distress Abdomen: normal bowel sounds, non tender, soft, no organomegaly Extremities: normal range of motion Neurologic: disoriented, unresponsive, aphasia Skin: normal pigmentation Assessment/Plan Problem List: (1) Sepsis ICD Codes: A41.9 - Sepsis, unspecified organism SNOMED: 50674708 (2) Pneumonia ICD Codes: J18.9 - Pneumonia, unspecified organism SNOMED: 533936172 (3) Leukocytosis ICD Codes: D72.829 - Elevated white blood cell count, unspecified SNOMED: 082332998, 938159806 (4) POPPY (acute kidney injury) ICD Codes: N17.9 - Acute kidney failure, unspecified SNOMED: 4366130, 03900485 (5) Dyspnea ICD Codes: R06.00 - Dyspnea, unspecified SNOMED: 833054438 (6) Respiratory distress ICD Codes: R06.03 - Acute respiratory distress SNOMED: 127291690 Status: stable, not improved Assessment/Plan: tube feeds. monitor residuals Continue broad-spectrum IV antibiotics per id Monitor H&H Transfuse as needed PPI treatment Continue vent support Breathing treatments and suctioning as needed Monitor electrolytes Turn every 2 hours Continue seizure treatment Chano Galeana MD Aug 03, 2020 08:19
[2020-08-03] MEDS: Pantoprazole Inj IVP SCH (08:22)
[2020-08-03] MEDS: levETIRAcetam 1,000mg/NS100ml 100 ML IVPB SCH ×2 (08:22→20:34)
--- NOTE | 2020-08-03 08:56 | Critical Care Progress Note ---
Assessment/Plan Assessment/Plan IMPRESSION: ?Possible perforated viscus, possible free peritoneal air, probable sepsis, hyponatremia, acute renal failure, chronic respiratory failure, thickened colon diffuse pneumonia, elevated lactic dehydrogenase, abdominal distention, severe protein-calorie malnutrition, seizure disorder. pneumonia, anemia PLAN care noted/ monitor lytes monitor acid base transfuse as needed IV antibiotics cultures noted respiratory care Ventilatory support SNF meds supportive care monitor for seizures advance feeds no wean at present oxygen therapy prognosis critical surgical follow up dc planning soon if cleared by all impression, plan, and exam edited and reviewed in detail care discussed with conservation engineer - Subjective ROS Limited/Unobtainable: Yes Condition: critical EKG Rhythm: Sinus Rhythm Residuals: minimal Tube Feeding Tolerated: yes I&O: Intake and Output 08/02/20 08/03/20 18:59 06:59 Intake Total 730 ml 680 ml Output Total 350 ml 300 ml Balance 380 ml 380 ml Free Water 130 ml 200 ml IV Total 360 ml 220 ml Tube Feeding 240 ml 260 ml Output Urine Total 350 ml 300 ml Critical Care - Objective Last 24 Hour Vital Signs Date Time Temp Pulse Resp B/P (MAP) Pulse Ox O2 Delivery O2 Flow Rate FiO2 08/03/20 07:00 85 32 60 08/03/20 04:01 82 08/03/20 04:00 99.2 80 32 119/62 (81) 98 08/03/20 04:00 80.0 08/03/20 03:05 89 30 60 08/03/20 00:23 92 08/03/20 00:00 80.0 08/02/20 23:10 79 27 60 08/02/20 21:38 101.1 08/02/20 20:00 80.0 08/02/20 20:00 100 08/02/20 20:00 102.2 96 27 124/69 (87) 97 08/02/20 18:55 82 26 60 08/02/20 16:01 83 20 128/60 96 08/02/20 16:00 80.0 08/02/20 16:00 98.1 83 20 128/60 (82) 96 08/02/20 15:31 115 28 135/68 94 08/02/20 15:13 116 08/02/20 15:10 80 24 60 08/02/20 12:00 80.0 08/02/20 12:00 96.7 91 18 121/62 (81) 92 08/02/20 12:00 87 08/02/20 10:52 78 26 60 08/02/20 10:46 62 31 100 Mechanical Ventilator 65.0 100 Objective: GENERAL: An ill-appearing male, chronically ill. HEENT: Negative. Tracheostomy midline. The patient is with chronic tongue protrusion. LUNGS: Coarse breath sounds. moderate breath sounds CARDIAC: S1, S2. Regular rate and rhythm. ABDOMEN: Distended. Poor bowel sounds. EXTREMITIES: No cyanosis or clubbing. There is mild edema. NEUROLOGIC: Poorly responsive to pain. Accucheck: 215 Bakari Montanez MD Aug 03, 2020 08:56
--- NOTE | 2020-08-03 11:06 | Surgery Progress Note ---
Surgery Progress Note Subjective Additional Comments new trach stable wbc noted exam unchanged abd exam stable Objective Last 24 Hour Vital Signs Date Time Temp Pulse Resp B/P (MAP) Pulse Ox O2 Delivery O2 Flow Rate FiO2 08/03/20 07:00 85 32 60 08/03/20 04:01 82 08/03/20 04:00 99.2 80 32 119/62 (81) 98 08/03/20 04:00 80.0 08/03/20 03:05 89 30 60 08/03/20 00:23 92 08/03/20 00:00 80.0 08/02/20 23:10 79 27 60 08/02/20 21:38 101.1 08/02/20 20:00 80.0 08/02/20 20:00 100 08/02/20 20:00 102.2 96 27 124/69 (87) 97 08/02/20 18:55 82 26 60 08/02/20 16:01 83 20 128/60 96 08/02/20 16:00 80.0 08/02/20 16:00 98.1 83 20 128/60 (82) 96 08/02/20 15:31 115 28 135/68 94 08/02/20 15:13 116 08/02/20 15:10 80 24 60 08/02/20 12:00 80.0 08/02/20 12:00 96.7 91 18 121/62 (81) 92 08/02/20 12:00 87 I&O Intake and Output 08/02/20 08/03/20 19:00 07:00 Intake Total 730 ml 630 ml Output Total 350 ml 300 ml Balance 380 ml 330 ml Free Water 130 ml 200 ml IV Total 360 ml 190 ml Tube Feeding 240 ml 240 ml Output Urine Total 350 ml 300 ml Dressing: saturated Cardiovascular: RSR Respiratory: decreased breath sounds Abdomen: distended - less, non-tender, present bowel sounds Extremities: edema, no tenderness, no cyanosis Laboratory Tests Test 08/02/20 11:34 08/02/20 17:59 08/02/20 23:10 08/03/20 04:30 POC Whole Blood Glucose 213 MG/DL (74-106) H 159 MG/DL (74-106) H 220 MG/DL (74-106) H White Blood Count 16.4 K/UL (4.8-10.8) H Red Blood Count 3.34 M/UL (4.70-6.10) L Hemoglobin 9.4 G/DL (14.2-18.0) L Hematocrit 31.4 % (42.0-52.0) L Mean Corpuscular Volume 94 FL (80-99) Mean Corpuscular Hemoglobin 28.0 PG (27.0-31.0) Mean Corpuscular Hemoglobin Concent 29.9 G/DL (32.0-36.0) L Red Cell Distribution Width 18.0 % (11.6-14.8) H Platelet Count 239 K/UL (150-450) Mean Platelet Volume 7.2 FL (6.5-10.1) Neutrophils (%) (Auto) 73.8 % (45.0-75.0) Lymphocytes (%) (Auto) 16.3 % (20.0-45.0) L Monocytes (%) (Auto) 7.7 % (1.0-10.0) Eosinophils (%) (Auto) 1.8 % (0.0-3.0) Basophils (%) (Auto) 0.5 % (0.0-2.0) Sodium Level 148 MMOL/L (136-145) H Potassium Level 3.9 MMOL/L (3.5-5.1) Chloride Level 115 MMOL/L (98-107) H Carbon Dioxide Level 27 MMOL/L (21-32) Blood Urea Nitrogen 12 mg/dL (7-18) Creatinine 1.0 MG/DL (0.55-1.30) Estimat Glomerular Filtration Rate > 60 mL/min (>60) Glucose Level 220 MG/DL (74-106) H Calcium Level 7.8 MG/DL (8.5-10.1) L Magnesium Level 1.6 MG/DL (1.8-2.4) L Total Bilirubin 0.5 MG/DL (0.2-1.0) Aspartate Amino Transf (AST/SGOT) 23 U/L (15-37) Alanine Aminotransferase (ALT/SGPT) 13 U/L (12-78) Alkaline Phosphatase 102 U/L (46-116) Pro-B-Type Natriuretic Peptide 40137 pg/mL (0-125) H Total Protein 7.5 G/DL (6.4-8.2) Albumin 1.5 G/DL (3.4-5.0) L Globulin 6.0 g/dL Albumin/Globulin Ratio 0.2 (1.0-2.7) L Test 08/03/20 05:12 POC Whole Blood Glucose 215 MG/DL (74-106) H Plan Problems: (1) Sepsis Assessment & Plan: 75M. cxr with possible free air. ct done and noted. abd distended. exam limited leukocytosis abnormal labs improving with fluids trach malfunction now improved on vent support cont current care will monitor and follow with recs PICC line trend labs transfuse prbc prn trach leak needs trach change ABDOMEN: Liver: Unremarkable. Gallbladder and bile ducts: Unremarkable. No calcified stones. Pancreas: Unremarkable. Spleen: Unremarkable. Adrenals: Unremarkable. Kidneys and ureters: Unremarkable. No hydronephrosis. Stomach and bowel: Mildly thickened sigmoid colon which may be underdistention, chronic, colitis, versus lesion. Colonic air-distention which may be ileus. No bowel obstruction or diverticulitis. PELVIS: Appendix: No findings to suggest acute appendicitis. Bladder: Thickened bladder which may be chronic, cystitis, versus lesion. Vera catheter in the bladder. Reproductive: Unremarkable as visualized. ABDOMEN and PELVIS: Intraperitoneal space: No free air. Bones/joints: No acute fracture. Soft tissues: Unremarkable. Vasculature: Unremarkable. Lymph nodes: Unremarkable. Tubes, lines and devices: Gastrostomy tube in the stomach. IMPRESSION: 1. Mildly thickened sigmoid colon which may be underdistention, chronic, colitis, versus lesion. Colonic air-distention which may be ileus. No bowel obstruction or diverticulitis. 2. Thickened bladder which may be chronic, cystitis, versus lesion. 3. Bibasilar infiltrates. Small left pleural effusion. (2) Pneumonia (3) Free intraperitoneal air Assessment & Plan: Apparent lucency underlying the right hemidiaphragm. This may potentially be artifactual. Recommend correlation with CT of the abdomen to exclude the possibility of free peritoneal air, particularly if there is a history of abdominal pain. Extensive interstitial and alveolar infiltrates concerning for multifocal pneumonia. Possibility of underlying chronic interstitial/chronic lung disease and scarring can also be considered. Indwelling tracheostomy tube. (4) Perforated abdominal viscus Assessment & Plan: CT reviewed no free air artifact on cxr abd distended cannot tell tender given condition will monitor (5) Decubitus skin ulcer (6) Hyperglycemia (7) Leukocytosis (8) GIB (gastrointestinal bleeding) (9) POPPY (acute kidney injury) (10) Dyspnea (11) Respiratory distress Assessment & Plan: trach asad 6f mark stable now Abdoul Lucas Aug 03, 2020 11:06
--- NOTE | 2020-08-03 11:22 | Infectious Diseases Prog Note ---
Assessment/Plan Assessment/Plan antibiotics : unasyn 07.31.20 - A 1. acenitobacter pneumonia COVID 19 negative 2. respiratory failure 3. colitis 4. UTI 5. diabetes mellitus 6. hypertension 7. COPD P 1. continue unasyn 6 more days 2. will follow up cultures Subjective ROS Limited/Unobtainable: Yes Allergies: Coded Allergies: No Known Allergies (Unverified , 07/04/18) Objective Last 24 Hour Vital Signs Date Time Temp Pulse Resp B/P (MAP) Pulse Ox O2 Delivery O2 Flow Rate FiO2 08/03/20 07:00 85 32 60 08/03/20 04:01 82 08/03/20 04:00 99.2 80 32 119/62 (81) 98 08/03/20 04:00 80.0 08/03/20 03:05 89 30 60 08/03/20 00:23 92 08/03/20 00:00 80.0 08/02/20 23:10 79 27 60 08/02/20 21:38 101.1 08/02/20 20:00 80.0 08/02/20 20:00 100 08/02/20 20:00 102.2 96 27 124/69 (87) 97 08/02/20 18:55 82 26 60 08/02/20 16:01 83 20 128/60 96 08/02/20 16:00 80.0 08/02/20 16:00 98.1 83 20 128/60 (82) 96 08/02/20 15:31 115 28 135/68 94 08/02/20 15:13 116 08/02/20 15:10 80 24 60 08/02/20 12:00 80.0 08/02/20 12:00 96.7 91 18 121/62 (81) 92 08/02/20 12:00 87 Height (Feet): 5 Height (Inches): 11.00 Weight (Pounds): 180 HEENT: status post trach Respiratory/Chest: lungs clear Cardiovascular: normal rate, regular rhythm, no gallop/murmur Abdomen: soft, non tender, other - GT Extremities: other - + edema, right arm PICC Laboratory Tests Test 08/02/20 11:34 08/02/20 17:59 08/02/20 23:10 08/03/20 04:30 POC Whole Blood Glucose 213 MG/DL (74-106) H 159 MG/DL (74-106) H 220 MG/DL (74-106) H White Blood Count 16.4 K/UL (4.8-10.8) H Red Blood Count 3.34 M/UL (4.70-6.10) L Hemoglobin 9.4 G/DL (14.2-18.0) L Hematocrit 31.4 % (42.0-52.0) L Mean Corpuscular Volume 94 FL (80-99) Mean Corpuscular Hemoglobin 28.0 PG (27.0-31.0) Mean Corpuscular Hemoglobin Concent 29.9 G/DL (32.0-36.0) L Red Cell Distribution Width 18.0 % (11.6-14.8) H Platelet Count 239 K/UL (150-450) Mean Platelet Volume 7.2 FL (6.5-10.1) Neutrophils (%) (Auto) 73.8 % (45.0-75.0) Lymphocytes (%) (Auto) 16.3 % (20.0-45.0) L Monocytes (%) (Auto) 7.7 % (1.0-10.0) Eosinophils (%) (Auto) 1.8 % (0.0-3.0) Basophils (%) (Auto) 0.5 % (0.0-2.0) Sodium Level 148 MMOL/L (136-145) H Potassium Level 3.9 MMOL/L (3.5-5.1) Chloride Level 115 MMOL/L (98-107) H Carbon Dioxide Level 27 MMOL/L (21-32) Blood Urea Nitrogen 12 mg/dL (7-18) Creatinine 1.0 MG/DL (0.55-1.30) Estimat Glomerular Filtration Rate > 60 mL/min (>60) Glucose Level 220 MG/DL (74-106) H Calcium Level 7.8 MG/DL (8.5-10.1) L Magnesium Level 1.6 MG/DL (1.8-2.4) L Total Bilirubin 0.5 MG/DL (0.2-1.0) Aspartate Amino Transf (AST/SGOT) 23 U/L (15-37) Alanine Aminotransferase (ALT/SGPT) 13 U/L (12-78) Alkaline Phosphatase 102 U/L (46-116) Pro-B-Type Natriuretic Peptide 76188 pg/mL (0-125) H Total Protein 7.5 G/DL (6.4-8.2) Albumin 1.5 G/DL (3.4-5.0) L Globulin 6.0 g/dL Albumin/Globulin Ratio 0.2 (1.0-2.7) L Test 08/03/20 05:12 POC Whole Blood Glucose 215 MG/DL (74-106) H Current Medications Medications (Trade) Dose Ordered Sig/Derrick Route PRN Reason Start Time Stop Time Status Last Admin Dose Admin Acetaminophen (Tylenol) 650 mg Q4H PRN RECTAL Mild Pain (Pain Scale 1-3) 07/28/20 21:15 08/27/20 21:14 08/02/20 00:11 Acetaminophen (Tylenol) 650 mg Q6H PRN GT Temp >100.5 08/02/20 12:45 09/01/20 12:44 08/02/20 21:08 Ampicillin Sodium/ Sulbactam Sodium 3 gm/Sodium Chloride 110 ml @ 220 mls/hr Q6HR IVPB 07/31/20 13:00 08/07/20 12:59 08/03/20 05:07 Chlorhexidine Gluconate (Gwendolyn-Hex 2%) 1 applic DAILY@2000 TOPIC 07/30/20 20:00 10/28/20 19:59 08/02/20 20:29 Clonidine HCl (Catapres Tab) 0.1 mg Q4H PRN ORAL For High Blood Pressure 07/28/20 21:15 10/26/20 21:14 Dextrose (Dextrose 50%) 25 ml Q30M PRN IV Hypoglycemia 08/02/20 12:45 10/31/20 12:44 Dextrose (Dextrose 50%) 50 ml Q30M PRN IV Hypoglycemia 08/02/20 12:45 10/31/20 12:44 Dextrose/Sodium Chloride 1,000 ml @ 30 mls/hr Q24H IV 07/30/20 15:45 08/29/20 15:44 08/02/20 15:48 Insulin Aspart (NovoLOG) per nurse, pt now on g-t... Q6HR SUBQ 08/02/20 12:00 10/31/20 11:59 08/03/20 05:16 Levetiracetam 100 ml @ 400 mls/hr Q12HR IVPB 07/28/20 21:15 10/26/20 21:14 08/03/20 08:22 Lorazepam (Ativan 2mg/ml 1ml) 1 mg Q3H PRN IV For Anxiety 08/02/20 15:15 08/09/20 15:14 08/02/20 15:31 Pantoprazole (Protonix) 40 mg DAILY IVP 07/29/20 09:00 08/28/20 08:59 08/03/20 08:22 Rosalinda Guerrero MD Aug 03, 2020 11:22
--- NOTE | 2020-08-03 13:25 | NUR ---
RD ASSESSMENT & RECOMMENDATIONS SEE CARE ACTIVITY FOR COMPLETE ASSESSMENT DAILY ESTIMATED NEEDS: Needs based on Critical care, wound 82kg 22-28 kcals/kg 3249-1725 total kcals 1.25-2 g protein/kg 103-164 g total protein 25-30 mL/kg 5743-1458 total fluid mLs NUTRITION DIAGNOSIS: * Swallowing difficulty R/T respiratory status, dysphagia as evidenced by trach/vent dep, PEG dep. (CURRENT TF: Osmolite 1.5 @20 ml/hr) ENTERAL NUTRITION RECOMMENDATIONS: Glucerna 1.5 @ 55ml/hr x 24 hrs to provide 1320ml, 1980kcal, 109g prot, 1002ml free water * As medically able, rec GLUCERNA 1.5. Start @20ml/hr for 6 hrs, advance as tolerated 10ml/hr q4-6 hrs to goal. * HOB over 30 degrees/ water flush per MD ADDITIONAL RECOMMENDATIONS: * Re-calibrated bedcale wt for accurate CBW * Monitor lytes, replete as needed * Rec wound care eval -> Stage 2, add MANJIT BID w/ TF's * Rec bed side BG checks-> now on POC. On POC checks + D5. * Monitor ability to feed- TF started, at low rate * Consider increasing water flushes for hydration vs D5
[2020-08-03 16:54] VITALS: BP 137/83
[2020-08-03] MEDS: D5NS 1,000 ML IV SCH (17:55)
--- NOTE | 2020-08-03 19:20 | NUR ---
NURSE HAND-OFF REPORT: Important Events on Shift: gave antibiotics Patient Status: FULL code Diet: osmolite 1.5 20ml/hr Pending Orders: [] Pending Results/Labs:[] Pending MD notification:[] Latest Vital Signs: Temperature 99.1 , Pulse 100 , B/P 137 /83 , Respiratory Rate 30 , O2 SAT 98 , Mechanical Ventilator, O2 Flow Rate 80.0 . Vital Sign Comment: [] EKG Rhythm: Sinus Rhythm Rhythm change?: N MD Notified?: - MD Response: Latest Ackerman Fall Score: 60 Fall Risk: High Risk Safety Measures: Call light Within Reach, Bed Alarm Zone 3, Side Rails Side Rails x3, Bed position Low and Locked. Fall Precautions: Yellow Socks Report given to MANNY Mills.
--- NOTE | 2020-08-03 19:30 | NUR ---
NURSE NOTES: RECEIVED PATIENT IN BED,OBTUNDED.WITH TRACH TO VENT AT ORDERED SETTINGS WELL TOLERATED.GT FEEDING OF OSMOLITE 1.5 AT 20 CC/HR NO RESIDUAL NOTED,KEPT HOB AT 35 DEGREES.MCLAUGHLIN TO GRAVITY WITH ADEQUATE AMOUNT OF YELLOW URINE.REPOSITIONED FOR COMFORT.VITAL SIGNS STABLE WITH LOW GRADE FEVER 99.0 F,SINUS TACHY 105-110/MIN.MAG LEVEL 1.[address] BRICE WITH ORDER TO GIVE 2 GMS OF MAG IVP,NOTED AND CARRIED .WILL CONTINUE PLAN OF CARE. ORAL CARE AND SUCTIONING DONE.
[2020-08-03 20:00] VITALS: BP 105/59
[2020-08-03] MEDS: Dyna-Hex 2% Top Sol 2oz TOPIC SCH (20:22)
[2020-08-03] MEDS: Acetaminophen 650 MG SUPP RECTAL PRN (21:11)
[2020-08-04 01:31] VITALS: BP 105/59
--- NOTE | 2020-08-04 02:49 | Cardiology Progress Note ---
Subjective DATE OF SERVICE: Aug 03, 2020 On vent support No hypoxia Tolerating tube feedings Some facial twitching noted Monitor: sinus with occ PAC's Objective Last 24 Hour Vital Signs Date Time Temp Pulse Resp B/P (MAP) Pulse Ox O2 Delivery O2 Flow Rate FiO2 08/04/20 01:31 97.1 95 28 105/59 (74) 98 08/04/20 00:00 97 08/04/20 00:00 Mechanical Ventilator 08/03/20 23:50 83 27 60 08/03/20 21:42 99.0 08/03/20 20:00 116 08/03/20 20:00 80.0 08/03/20 20:00 Mechanical Ventilator 08/03/20 20:00 99.0 109 28 105/59 (74) 98 08/03/20 19:04 100 30 60 08/03/20 16:54 99.1 66 31 137/83 (101) 98 08/03/20 16:00 95 08/03/20 16:00 80.0 08/03/20 15:10 94 27 60 08/03/20 12:00 84 08/03/20 12:00 80.0 08/03/20 11:10 100 28 60 08/03/20 08:00 80.0 08/03/20 08:00 93 08/03/20 07:00 85 32 60 08/03/20 04:01 82 08/03/20 04:00 99.2 80 32 119/62 (81) 98 08/03/20 04:00 80.0 08/03/20 03:05 89 30 60 ROS: unchanged HEENT: Thin Trach secretions, other - protruding tongue RHYTHM: NSR, PACs LUNGS: left-sided rhonchi CARDIAC: normal rate, regular rhythm, normal S1 and S2 ABDOMEN: normal bowel sounds, non tender, soft, no organomegaly, G-Tube intact EXTREMITIES: normal range of motion, no calf tenderness, trace edema Laboratory Tests Test 08/03/20 04:30 08/03/20 05:12 08/03/20 11:50 08/03/20 18:10 White Blood Count 16.4 K/UL (4.8-10.8) H Red Blood Count 3.34 M/UL (4.70-6.10) L Hemoglobin 9.4 G/DL (14.2-18.0) L Hematocrit 31.4 % (42.0-52.0) L Mean Corpuscular Volume 94 FL (80-99) Mean Corpuscular Hemoglobin 28.0 PG (27.0-31.0) Mean Corpuscular Hemoglobin Concent 29.9 G/DL (32.0-36.0) L Red Cell Distribution Width 18.0 % (11.6-14.8) H Platelet Count 239 K/UL (150-450) Mean Platelet Volume 7.2 FL (6.5-10.1) Neutrophils (%) (Auto) 73.8 % (45.0-75.0) Lymphocytes (%) (Auto) 16.3 % (20.0-45.0) L Monocytes (%) (Auto) 7.7 % (1.0-10.0) Eosinophils (%) (Auto) 1.8 % (0.0-3.0) Basophils (%) (Auto) 0.5 % (0.0-2.0) Sodium Level 148 MMOL/L (136-145) H Potassium Level 3.9 MMOL/L (3.5-5.1) Chloride Level 115 MMOL/L (98-107) H Carbon Dioxide Level 27 MMOL/L (21-32) Blood Urea Nitrogen 12 mg/dL (7-18) Creatinine 1.0 MG/DL (0.55-1.30) Estimat Glomerular Filtration Rate > 60 mL/min (>60) Glucose Level 220 MG/DL (74-106) H Calcium Level 7.8 MG/DL (8.5-10.1) L Magnesium Level 1.6 MG/DL (1.8-2.4) L Total Bilirubin 0.5 MG/DL (0.2-1.0) Aspartate Amino Transf (AST/SGOT) 23 U/L (15-37) Alanine Aminotransferase (ALT/SGPT) 13 U/L (12-78) Alkaline Phosphatase 102 U/L (46-116) Pro-B-Type Natriuretic Peptide 19959 pg/mL (0-125) H Total Protein 7.5 G/DL (6.4-8.2) Albumin 1.5 G/DL (3.4-5.0) L Globulin 6.0 g/dL Albumin/Globulin Ratio 0.2 (1.0-2.7) L POC Whole Blood Glucose 215 MG/DL (74-106) H 204 MG/DL (74-106) H 221 MG/DL (74-106) H Test 08/03/20 23:39 POC Whole Blood Glucose 239 MG/DL (74-106) H Assessment/Plan Assessment/Plan Sepsis Respiratory failure Chronic encephalopathy Paroxysmal atrial ectopy Anemia Dehydration/hypernatremia Hypokalemia Severe protein/calorie malnutrition Hypomagnesemia Add beta toni Antimicrobials Anti-sz medx Vent support Protein suppl Free water by IV route Potassium suppl; Mg++ repl by IV route DVT prophyl [place] MD Aug 04, 2020 02:49
[2020-08-04] MEDS: Unasyn 3gm in NS 110ml IVPB SCH ×3 (05:33→17:25)
[2020-08-04] MEDS: NovoLOG Insulin Flexpen SUBQ SCH ×3 (05:34→17:42)
[2020-08-04 06:29] LABS: BASOPHILS % (AUTO) 0.3 % (0.0-2.0); EOSINOPHILS % (AUTO) 2.6 % (0.0-3.0); HEMATOCRIT 33.1 % (42.0-52.0); HEMOGLOBIN 9.9 G/DL (14.2-18.0); LYMPHOCYTES % (AUTO) 16.5 % (20.0-45.0); MEAN CORPUSCULAR VOLUME 94 FL (80-99); MONOCYTES % (AUTO) 5.1 % (1.0-10.0); NEUTROPHILS % (AUTO) 75.5 % (45.0-75.0); PLATELET COUNT 269 K/UL (150-450); RED BLOOD COUNT 3.52 M/UL (4.70-6.10); RED CELL DISTRIBUTION WIDTH 18.4 % (11.6-14.8); WHITE BLOOD COUNT 15.6 K/UL (4.8-10.8)
[2020-08-04 06:49] LABS: ALANINE AMINOTRANSFERASE 8 U/L (12-78); ALBUMIN 1.5 G/DL (3.4-5.0); ALBUMIN/GLOBULIN RATIO 0.2 (1.0-2.7); ALKALINE PHOSPHATASE 93 U/L (46-116); ANION GAP 4 mmol/L (5-15); ASPARTATE AMINO TRANSFERASE 19 U/L (15-37); BILIRUBIN,TOTAL 0.3 MG/DL (0.2-1.0); BLOOD UREA NITROGEN 18 mg/dL (7-18); CALCIUM 7.9 MG/DL (8.5-10.1); CARBON DIOXIDE 29 MMOL/L (21-32); CHLORIDE 114 MMOL/L (98-107); CREATININE 0.9 MG/DL (0.55-1.30); POTASSIUM 3.8 MMOL/L (3.5-5.1); SODIUM 147 MMOL/L (136-145)
--- NOTE | 2020-08-04 07:35 | NUR ---
NURSE NOTES: Received report from MANNY Mills. Patient is on bed, no grimacing and no distress noted. Patient is trache-vent S6 with settings of AC16, Vt 500, FiO2 80, PEEP 5, tolerating well. On GT feeding, patent, intact, running Osmolite 1.5 20cc/hr (continuous) with free water flush. Patient has a ZOE PICC line running D5NS at 30cc/hr. Intact, patent, and no signs of infiltration. Bed is on lowest position, locked, side rails up, call light within reach. Patient will continue to be monitored.
--- NOTE | 2020-08-04 07:39 | NUR ---
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 Vital Sign Comment: stable EKG Rhythm: Sinus Rhythm Rhythm change?: N MD Notified?: - MD Response: Latest Ackerman Fall Score: 60 Fall Risk: High Risk Safety Measures: Call light Within Reach, Bed Alarm Zone 3, Side Rails Side Rails x3, Bed position Low and Locked. Fall Precautions: Yellow Socks Report given to MANNY Williamson.
[2020-08-04 08:00] VITALS: BP 152/69
--- NOTE | 2020-08-04 08:48 | General Progress Note ---
Subjective ROS Limited/Unobtainable: Yes Constitutional: Reports: malaise, weakness HEENT: Reports: no symptoms Cardiovascular: Reports: edema Respiratory: Reports: cough, shortness of breath, sputum Gastrointestinal/Abdominal: Reports: difficulty swallowing Genitourinary: Reports: no symptoms Neurologic/Psychiatric: Reports: pre-existing deficit, seizure Endocrine: Reports: no symptoms Hematologic/Lymphatic: Reports: anemia Allergies: Coded Allergies: No Known Allergies (Unverified , 07/04/18) All Systems: reviewed and negative except above Subjective no events. w/o complaints +congestion/secretions. remains on iv abx, poorly responsive and nonverbal at baseline Objective Last 24 Hour Vital Signs Date Time Temp Pulse Resp B/P (MAP) Pulse Ox O2 Delivery O2 Flow Rate FiO2 08/04/20 08:00 Mechanical Ventilator 08/04/20 08:00 80.0 08/04/20 07:05 79 33 60 08/04/20 04:04 Mechanical Ventilator 08/04/20 04:04 88 08/04/20 04:03 80.0 08/04/20 03:20 65 27 60 08/04/20 01:31 97.1 95 28 105/59 (74) 98 08/04/20 00:00 97 08/04/20 00:00 Mechanical Ventilator 08/03/20 23:50 83 27 60 08/03/20 21:42 99.0 08/03/20 20:00 116 08/03/20 20:00 80.0 08/03/20 20:00 Mechanical Ventilator 08/03/20 20:00 99.0 109 28 105/59 (74) 98 08/03/20 19:04 100 30 60 08/03/20 16:54 99.1 66 31 137/83 (101) 98 08/03/20 16:00 95 08/03/20 16:00 80.0 08/03/20 15:10 94 27 60 08/03/20 12:00 84 08/03/20 12:00 80.0 08/03/20 11:10 100 28 60 l Intake and Output 08/03/20 08/04/20 19:00 07:00 Intake Total 1070 ml 1320 ml Output Total 550 ml 400 ml Balance 520 ml 920 ml Free Water 200 ml 300 ml IV Total 390 ml 820 ml Tube Feeding 240 ml 200 ml Other 240 ml Output Urine Total 550 ml 400 ml # Voids 1 Laboratory Tests 08/03/20 11:50: POC Whole Blood Glucose 204H 08/03/20 18:10: POC Whole Blood Glucose 221H 08/03/20 23:39: POC Whole Blood Glucose 239H 08/04/20 04:59: POC Whole Blood Glucose 229H 08/04/20 05:10: White Blood Count 15.6H, Red Blood Count 3.52L, Hemoglobin 9.9L, Hematocrit 33.1L, Mean Corpuscular Volume 94, Mean Corpuscular Hemoglobin 28.2, Mean Corpuscular Hemoglobin Concent 30.0L, Red Cell Distribution Width 18.4H, Platelet Count 269, Mean Platelet Volume 7.2, Neutrophils (%) (Auto) 75.5H, Lymphocytes (%) (Auto) 16.5L, Monocytes (%) (Auto) 5.1, Eosinophils (%) (Auto) 2.6, Basophils (%) (Auto) 0.3, Sodium Level 147H, Potassium Level 3.8, Chloride Level 114H, Carbon Dioxide Level 29, Anion Gap 4L, Blood Urea Nitrogen 18, Creatinine 0.9, Estimat Glomerular Filtration Rate > 60, Glucose Level 267H, Juan Francisco cium Level 7.9L, Magnesium Level 2.3, Total Bilirubin 0.3, Aspartate Amino Transf (AST/SGOT) 19, Alanine Aminotransferase (ALT/SGPT) 8L, Alkaline Phosphatase 93, Pro-B-Type Natriuretic Peptide 6606H, Total Protein 7.9, Albumin 1.5L, Globulin 6.4, Albumin/Globulin Ratio 0.2L Height (Feet): 5 Height (Inches): 11.00 Weight (Pounds): 180 Objective General Appearance: WD/WN, lethargic, confused EENT: PERRL/EOMI Neck: non-tender, normal alignment Cardiovascular: normal peripheral pulses, normal rate Respiratory/Chest: chest wall non-tender, lungs clear, normal breath sounds, no respiratory distress Abdomen: normal bowel sounds, non tender, soft, no organomegaly Extremities: normal range of motion Neurologic: disoriented, unresponsive, aphasia Skin: normal pigmentation Assessment/Plan Problem List: (1) Sepsis ICD Codes: A41.9 - Sepsis, unspecified organism SNOMED: 91315481 (2) Pneumonia ICD Codes: J18.9 - Pneumonia, unspecified organism SNOMED: 274653179 (3) Leukocytosis ICD Codes: D72.829 - Elevated white blood cell count, unspecified SNOMED: 340735722, 270682970 (4) POPPY (acute kidney injury) ICD Codes: N17.9 - Acute kidney failure, unspecified SNOMED: 6647940, 59673504 (5) Dyspnea ICD Codes: R06.00 - Dyspnea, unspecified SNOMED: 360975117 (6) Respiratory distress ICD Codes: R06.03 - Acute respiratory distress SNOMED: 087572020 Status: stable, not improved Assessment/Plan: tube feeds. monitor residuals Continue broad-spectrum IV antibiotics per id Monitor H&H Transfuse as needed PPI treatment Continue vent support Breathing treatments and suctioning as needed Monitor electrolytes Turn every 2 hours Continue seizure treatment Chano Galeana MD Aug 04, 2020 08:48
[2020-08-04] MEDS: levETIRAcetam 1,000mg/NS100ml 100 ML IVPB SCH ×2 (09:00→20:49)
[2020-08-04] MEDS: Pantoprazole Inj IVP SCH (09:01)
--- NOTE | 2020-08-04 10:02 | NUR ---
RADIOLOGY DEPT., ABDOMEN AND CHEST X-RAY DONE.-P.DYE
--- NOTE | 2020-08-04 11:26 | Infectious Diseases Prog Note ---
Assessment/Plan Assessment/Plan antibiotics : unasyn 07.31.20 - A 1. acenitobacter pneumonia COVID 19 negative 2. respiratory failure 3. colitis 4. UTI 5. diabetes mellitus 6. hypertension 7. COPD P 1. continue unasyn 5 more days 2. will follow up cultures Subjective ROS Limited/Unobtainable: Yes Allergies: Coded Allergies: No Known Allergies (Unverified , 07/04/18) Objective Last 24 Hour Vital Signs Date Time Temp Pulse Resp B/P (MAP) Pulse Ox O2 Delivery O2 Flow Rate FiO2 08/04/20 08:00 Mechanical Ventilator 08/04/20 08:00 80.0 08/04/20 07:56 78 08/04/20 07:05 79 33 60 08/04/20 04:04 Mechanical Ventilator 08/04/20 04:04 88 08/04/20 04:03 80.0 08/04/20 03:20 65 27 60 08/04/20 01:31 97.1 95 28 105/59 (74) 98 08/04/20 00:00 97 08/04/20 00:00 Mechanical Ventilator 08/03/20 23:50 83 27 60 08/03/20 21:42 99.0 08/03/20 20:00 116 08/03/20 20:00 80.0 08/03/20 20:00 Mechanical Ventilator 08/03/20 20:00 99.0 109 28 105/59 (74) 98 08/03/20 19:04 100 30 60 08/03/20 16:54 99.1 66 31 137/83 (101) 98 08/03/20 16:00 95 08/03/20 16:00 80.0 08/03/20 15:10 94 27 60 08/03/20 12:00 84 08/03/20 12:00 80.0 Height (Feet): 5 Height (Inches): 11.00 Weight (Pounds): 180 HEENT: status post trach Respiratory/Chest: lungs clear Cardiovascular: normal rate, regular rhythm, no gallop/murmur Abdomen: soft, non tender, other - GT Extremities: other - + edema Laboratory Tests Test 08/03/20 11:50 08/03/20 18:10 08/03/20 23:39 08/04/20 04:59 POC Whole Blood Glucose 204 MG/DL (74-106) H 221 MG/DL (74-106) H 239 MG/DL (74-106) H 229 MG/DL (74-106) H Test 08/04/20 05:10 White Blood Count 15.6 K/UL (4.8-10.8) H Red Blood Count 3.52 M/UL (4.70-6.10) L Hemoglobin 9.9 G/DL (14.2-18.0) L Hematocrit 33.1 % (42.0-52.0) L Mean Corpuscular Volume 94 FL (80-99) Mean Corpuscular Hemoglobin 28.2 PG (27.0-31.0) Mean Corpuscular Hemoglobin Concent 30.0 G/DL (32.0-36.0) L Red Cell Distribution Width 18.4 % (11.6-14.8) H Platelet Count 269 K/UL (150-450) Mean Platelet Volume 7.2 FL (6.5-10.1) Neutrophils (%) (Auto) 75.5 % (45.0-75.0) H Lymphocytes (%) (Auto) 16.5 % (20.0-45.0) L Monocytes (%) (Auto) 5.1 % (1.0-10.0) Eosinophils (%) (Auto) 2.6 % (0.0-3.0) Basophils (%) (Auto) 0.3 % (0.0-2.0) Sodium Level 147 MMOL/L (136-145) H Potassium Level 3.8 MMOL/L (3.5-5.1) Chloride Level 114 MMOL/L (98-107) H Carbon Dioxide Level 29 MMOL/L (21-32) Anion Gap 4 mmol/L (5-15) L Blood Urea Nitrogen 18 mg/dL (7-18) Creatinine 0.9 MG/DL (0.55-1.30) Estimat Glomerular Filtration Rate > 60 mL/min (>60) Glucose Level 267 MG/DL (74-106) H Calcium Level 7.9 MG/DL (8.5-10.1) L Magnesium Level 2.3 MG/DL (1.8-2.4) Total Bilirubin 0.3 MG/DL (0.2-1.0) Aspartate Amino Transf (AST/SGOT) 19 U/L (15-37) Alanine Aminotransferase (ALT/SGPT) 8 U/L (12-78) L Alkaline Phosphatase 93 U/L (46-116) Pro-B-Type Natriuretic Peptide 6606 pg/mL (0-125) H Total Protein 7.9 G/DL (6.4-8.2) Albumin 1.5 G/DL (3.4-5.0) L Globulin 6.4 g/dL Albumin/Globulin Ratio 0.2 (1.0-2.7) L Current Medications Medications (Trade) Dose Ordered Sig/Derrick Route PRN Reason Start Time Stop Time Status Last Admin Dose Admin Acetaminophen (Tylenol) 650 mg Q4H PRN RECTAL Mild Pain (Pain Scale 1-3) 07/28/20 21:15 08/27/20 21:14 08/03/20 21:11 Acetaminophen (Tylenol) 650 mg Q6H PRN GT Temp >100.5 08/02/20 12:45 09/01/20 12:44 08/02/20 21:08 Ampicillin Sodium/ Sulbactam Sodium 3 gm/Sodium Chloride 110 ml @ 220 mls/hr Q6HR IVPB 07/31/20 13:00 08/07/20 12:59 08/04/20 05:33 Chlorhexidine Gluconate (Gwendolyn-Hex 2%) 1 applic DAILY@2000 TOPIC 07/30/20 20:00 10/28/20 19:59 08/03/20 20:22 Clonidine HCl (Catapres Tab) 0.1 mg Q4H PRN ORAL For High Blood Pressure 07/28/20 21:15 10/26/20 21:14 Dextrose (Dextrose 50%) 25 ml Q30M PRN IV Hypoglycemia 08/02/20 12:45 10/31/20 12:44 Dextrose (Dextrose 50%) 50 ml Q30M PRN IV Hypoglycemia 08/02/20 12:45 10/31/20 12:44 Dextrose/Sodium Chloride 1,000 ml @ 30 mls/hr Q24H IV 07/30/20 15:45 08/29/20 15:44 08/03/20 17:55 Insulin Aspart (NovoLOG) per nurse, pt now on g-t... Q6HR SUBQ 08/02/20 12:00 10/31/20 11:59 08/04/20 05:34 Levetiracetam 100 ml @ 400 mls/hr Q12HR IVPB 07/28/20 21:15 10/26/20 21:14 08/04/20 09:00 Lorazepam (Ativan 2mg/ml 1ml) 1 mg Q3H PRN IV For Anxiety 08/02/20 15:15 08/09/20 15:14 08/02/20 15:31 Pantoprazole (Protonix) 40 mg DAILY IVP 07/29/20 09:00 08/28/20 08:59 08/04/20 09:01 Rosalinda Guerrero MD Aug 04, 2020 11:26
[2020-08-04 12:00] VITALS: BP 145/84
[2020-08-04] MEDS ORDERED: Lactulose 20gm/30ml UDC GT SCH (12:45)
--- NOTE | 2020-08-04 14:03 | Critical Care Progress Note ---
Assessment/Plan Assessment/Plan IMPRESSION: ?Possible perforated viscus, possible free peritoneal air, probable sepsis, hyponatremia, acute renal failure, chronic respiratory failure, thickened colon diffuse pneumonia, elevated lactic dehydrogenase, abdominal distention, severe protein-calorie malnutrition, seizure disorder. pneumonia, anemia PLAN care noted/ monitor lytes monitor acid base transfuse as needed IV antibiotics cultures noted respiratory care Ventilatory support SNF meds supportive care monitor for seizures advance feeds no wean at present oxygen therapy prognosis critical surgical follow up dc planning impression, plan, and exam edited and reviewed in detail care discussed with systems software designer - Subjective Condition: critical, unchanged EKG Rhythm: Sinus Rhythm Residuals: minimal Tube Feeding Tolerated: yes I&O: Intake and Output 08/03/20 08/04/20 19:00 07:00 Intake Total 1070 ml 1350 ml Output Total 550 ml 400 ml Balance 520 ml 950 ml Free Water 200 ml 300 ml IV Total 390 ml 850 ml Tube Feeding 240 ml 200 ml Other 240 ml Output Urine Total 550 ml 400 ml # Voids 1 Critical Care - Objective Last 24 Hour Vital Signs Date Time Temp Pulse Resp B/P (MAP) Pulse Ox O2 Delivery O2 Flow Rate FiO2 08/04/20 12:00 80.0 08/04/20 12:00 Mechanical Ventilator 08/04/20 11:57 73 08/04/20 08:00 Mechanical Ventilator 08/04/20 08:00 80.0 08/04/20 07:56 78 08/04/20 07:05 79 33 60 08/04/20 04:04 Mechanical Ventilator 08/04/20 04:04 88 08/04/20 04:03 80.0 08/04/20 03:20 65 27 60 08/04/20 01:31 97.1 95 28 105/59 (74) 98 08/04/20 00:00 97 08/04/20 00:00 Mechanical Ventilator 08/03/20 23:50 83 27 60 08/03/20 21:42 99.0 08/03/20 20:00 116 08/03/20 20:00 80.0 08/03/20 20:00 Mechanical Ventilator 08/03/20 20:00 99.0 109 28 105/59 (74) 98 08/03/20 19:04 100 30 60 08/03/20 16:54 99.1 66 31 137/83 (101) 98 08/03/20 16:00 95 08/03/20 16:00 80.0 08/03/20 15:10 94 27 60 Objective: GENERAL: An ill-appearing male, chronically ill. HEENT: Negative. Tracheostomy midline. The patient is with chronic tongue protrusion. LUNGS: Coarse breath sounds. moderate breath sounds CARDIAC: S1, S2. Regular rate and rhythm. ABDOMEN: Distended. Poor bowel sounds. EXTREMITIES: No cyanosis or clubbing. There is mild edema. NEUROLOGIC: Poorly responsive to pain. Accucheck: 200 Bakari Montanez MD Aug 04, 2020 14:03
--- NOTE | 2020-08-04 15:26 | NUR ---
NURSE NOTES: Dr. Lucas at bed side and informed that today's abdomen xray is taken but no results yet. Dr. Lucas said patient is okay for discharge because patient is tolerating tube feeding.
--- NOTE | 2020-08-04 15:33 | NUR ---
CASE MANAGEMENT:REVIEW 08/04/20 SI: SEPSIS. PNA. PERF ABD VISCUS TRACH/VENT/GT DEPENDENT 97.1 95 28 105/59 98% ON VENT W/60% FIO2 WBC+15.6 IS: IV AMPICILLIN Q6HRS IVF@30/HR IV PROTONIX QD IV KEPPRA Q12 : STEP DOWN UNIT DCP: FROM [facility]
[2020-08-04 16:00] VITALS: BP 144/87
[2020-08-04] MEDS: D5NS 1,000 ML IV SCH (16:12)
--- NOTE | 2020-08-04 16:23 | Diagnostic Imaging Report ---
Indication: Abdominal pain Technique: Supine view of the abdomen Comparison: 08/01/2020 Findings: Bowel gas pattern is unremarkable, similar to the previous study.. There is a gastrostomy. The included lung bases demonstrate extensive parenchymal disease. Impression: No definite acute abdominal process
--- NOTE | 2020-08-04 16:25 | Diagnostic Imaging Report ---
Indication: Cough Technique: One view of the chest Comparison: 07/29/2020 Findings: There is interim worsening of infiltrates in the right lung. There is slight improvement in the left lung. The pleural spaces are grossly clear. The heart size is upper limits normal. Impression: Worsening right but slightly improved left infiltrates, over 6 days
--- NOTE | 2020-08-04 17:15 | NUR ---
*-*DISCHARGE PLANNED*-* PATIENT HAS BEEN ACCEPTED AND WILL BE DISCHARGED BACK TO: [facility] P: [phone] FOR NURSE TO NURSE REPORT ROOM# 215.[facility] SET FOR 6:15PM/ [phone] [phone].
--- NOTE | 2020-08-04 18:00 | NUR ---
NURSE NOTES: Called patient's son/Sean Paiz, informed that patient is gonna be discharge today back to [facility].
--- NOTE | 2020-08-04 18:03 | Surgery Progress Note ---
Surgery Progress Note Subjective Additional Comments wbc improving kub noted cxr noted cont abx d/c planning Objective Last 24 Hour Vital Signs Date Time Temp Pulse Resp B/P (MAP) Pulse Ox O2 Delivery O2 Flow Rate FiO2 08/04/20 16:00 Mechanical Ventilator 08/04/20 16:00 70 08/04/20 15:13 94 08/04/20 15:10 85 35 60 08/04/20 12:00 80.0 08/04/20 12:00 Mechanical Ventilator 08/04/20 11:57 73 08/04/20 11:04 98 37 60 08/04/20 08:00 Mechanical Ventilator 08/04/20 08:00 80.0 08/04/20 07:56 78 08/04/20 07:05 79 33 60 08/04/20 04:04 Mechanical Ventilator 08/04/20 04:04 88 08/04/20 04:03 80.0 08/04/20 03:20 65 27 60 08/04/20 01:31 97.1 95 28 105/59 (74) 98 08/04/20 00:00 97 08/04/20 00:00 Mechanical Ventilator 08/03/20 23:50 83 27 60 08/03/20 21:42 99.0 08/03/20 20:00 116 08/03/20 20:00 80.0 08/03/20 20:00 Mechanical Ventilator 08/03/20 20:00 99.0 109 28 105/59 (74) 98 08/03/20 19:04 100 30 60 I&O Intake and Output 08/03/20 08/04/20 19:00 07:00 Intake Total 1070 ml 1350 ml Output Total 550 ml 400 ml Balance 520 ml 950 ml Free Water 200 ml 300 ml IV Total 390 ml 850 ml Tube Feeding 240 ml 200 ml Other 240 ml Output Urine Total 550 ml 400 ml # Voids 1 Dressing: saturated Cardiovascular: RSR Respiratory: decreased breath sounds Abdomen: soft, non-tender, present bowel sounds Extremities: no tenderness, no cyanosis Laboratory Tests Test 08/03/20 18:10 08/03/20 23:39 08/04/20 04:59 08/04/20 05:10 POC Whole Blood Glucose 221 MG/DL (74-106) H 239 MG/DL (74-106) H 229 MG/DL (74-106) H White Blood Count 15.6 K/UL (4.8-10.8) H Red Blood Count 3.52 M/UL (4.70-6.10) L Hemoglobin 9.9 G/DL (14.2-18.0) L Hematocrit 33.1 % (42.0-52.0) L Mean Corpuscular Volume 94 FL (80-99) Mean Corpuscular Hemoglobin 28.2 PG (27.0-31.0) Mean Corpuscular Hemoglobin Concent 30.0 G/DL (32.0-36.0) L Red Cell Distribution Width 18.4 % (11.6-14.8) H Platelet Count 269 K/UL (150-450) Mean Platelet Volume 7.2 FL (6.5-10.1) Neutrophils (%) (Auto) 75.5 % (45.0-75.0) H Lymphocytes (%) (Auto) 16.5 % (20.0-45.0) L Monocytes (%) (Auto) 5.1 % (1.0-10.0) Eosinophils (%) (Auto) 2.6 % (0.0-3.0) Basophils (%) (Auto) 0.3 % (0.0-2.0) Sodium Level 147 MMOL/L (136-145) H Potassium Level 3.8 MMOL/L (3.5-5.1) Chloride Level 114 MMOL/L (98-107) H Carbon Dioxide Level 29 MMOL/L (21-32) Anion Gap 4 mmol/L (5-15) L Blood Urea Nitrogen 18 mg/dL (7-18) Creatinine 0.9 MG/DL (0.55-1.30) Estimat Glomerular Filtration Rate > 60 mL/min (>60) Glucose Level 267 MG/DL (74-106) H Calcium Level 7.9 MG/DL (8.5-10.1) L Magnesium Level 2.3 MG/DL (1.8-2.4) Total Bilirubin 0.3 MG/DL (0.2-1.0) Aspartate Amino Transf (AST/SGOT) 19 U/L (15-37) Alanine Aminotransferase (ALT/SGPT) 8 U/L (12-78) L Alkaline Phosphatase 93 U/L (46-116) Pro-B-Type Natriuretic Peptide 6606 pg/mL (0-125) H Total Protein 7.9 G/DL (6.4-8.2) Albumin 1.5 G/DL (3.4-5.0) L Globulin 6.4 g/dL Albumin/Globulin Ratio 0.2 (1.0-2.7) L Test 08/04/20 12:06 08/04/20 17:38 POC Whole Blood Glucose Pending Pending Plan Problems: (1) Sepsis Assessment & Plan: 75M. cxr with possible free air. ct done and noted. abd distended. exam limited leukocytosis abnormal labs improving with fluids trach malfunction now improved on vent support cont current care will monitor and follow with recs PICC line trend labs transfuse prbc prn trach leak needs trach change trach changed cxr noted infiltrates labs improving d/c planning cont abx as per ID ABDOMEN: Liver: Unremarkable. Gallbladder and bile ducts: Unremarkable. No calcified stones. Pancreas: Unremarkable. Spleen: Unremarkable. Adrenals: Unremarkable. Kidneys and ureters: Unremarkable. No hydronephrosis. Stomach and bowel: Mildly thickened sigmoid colon which may be underdistention, chronic, colitis, versus lesion. Colonic air-distention which may be ileus. No bowel obstruction or diverticulitis. PELVIS: Appendix: No findings to suggest acute appendicitis. Bladder: Thickened bladder which may be chronic, cystitis, versus lesion. Vera catheter in the bladder. Reproductive: Unremarkable as visualized. ABDOMEN and PELVIS: Intraperitoneal space: No free air. Bones/joints: No acute fracture. Soft tissues: Unremarkable. Vasculature: Unremarkable. Lymph nodes: Unremarkable. Tubes, lines and devices: Gastrostomy tube in the stomach. IMPRESSION: 1. Mildly thickened sigmoid colon which may be underdistention, chronic, colitis, versus lesion. Colonic air-distention which may be ileus. No bowel obstruction or diverticulitis. 2. Thickened bladder which may be chronic, cystitis, versus lesion. 3. Bibasilar infiltrates. Small left pleural effusion. (2) Pneumonia (3) Free intraperitoneal air Assessment & Plan: Apparent lucency underlying the right hemidiaphragm. This may potentially be artifactual. Recommend correlation with CT of the abdomen to exclude the possibility of free peritoneal air, particularly if there is a history of abdominal pain. Extensive interstitial and alveolar infiltrates concerning for multifocal pneumonia. Possibility of underlying chronic interstitial/chronic lung disease and scarring can also be considered. Indwelling tracheostomy tube. (4) Perforated abdominal viscus Assessment & Plan: CT reviewed no free air artifact on cxr abd distended cannot tell tender given condition will monitor (5) Decubitus skin ulcer (6) Hyperglycemia (7) Leukocytosis (8) GIB (gastrointestinal bleeding) (9) POPPY (acute kidney injury) (10) Dyspnea (11) Respiratory distress Assessment & Plan: trach changed 6f mark stable now Abdoul Lucas Aug 04, 2020 18:03
--- NOTE | 2020-08-04 18:30 | NUR ---
NURSE NOTES: Telephone report given to MANNY Paige of [facility]. She said that patient is going to room 210 B. Doctor Lisseth ordered to continue SNF medications, and continue unasyn 3g IV every 6 hours for 5 more days. Last unasyn IV ATB dose given at 1800.
--- NOTE | 2020-08-04 19:25 | NUR ---
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
--- NOTE | 2020-08-04 19:30 | NUR ---
NURSE NOTES: RT TITRATE FIO2 DOWN FROM 70 TO 60%,O2 SATURATION 93-95%,WILL CONTINUE TO MONITOR PATIENT.
[2020-08-04 20:00] VITALS: BP 134/78
[2020-08-04] MEDS: Dyna-Hex 2% Top Sol 2oz TOPIC SCH (20:49)
[2020-08-05] VITALS: BP 137/77
[2020-08-05] MEDS: Unasyn 3gm in NS 110ml IVPB SCH ×4 (00:05→17:51)
[2020-08-05] MEDS: NovoLOG Insulin Flexpen SUBQ SCH ×4 (00:06→17:51)
--- NOTE | 2020-08-05 01:23 | Cardiology Progress Note ---
Subjective DATE OF SERVICE: Aug 04, 2020 On vent support No hypoxia Tolerating tube feedings Monitor: sinus with occ PAC's CXR: (08/04) worsening right infiltr/improved left infiltr Objective Last 24 Hour Vital Signs Date Time Temp Pulse Resp B/P (MAP) Pulse Ox O2 Delivery O2 Flow Rate FiO2 08/05/20 00:00 Mechanical Ventilator 08/05/20 00:00 84 08/05/20 00:00 50 08/05/20 00:00 97.9 101 28 137/77 (97) 95 08/04/20 23:00 55 08/04/20 22:52 72 28 55 08/04/20 20:30 60 08/04/20 20:00 94 08/04/20 20:00 Mechanical Ventilator 08/04/20 20:00 99.1 94 28 134/78 (96) 99 08/04/20 20:00 70 08/04/20 18:59 72 30 70 08/04/20 16:00 Mechanical Ventilator 08/04/20 16:00 70 08/04/20 16:00 97.2 71 28 144/87 (106) 97 08/04/20 15:13 94 08/04/20 15:10 85 35 60 08/04/20 12:00 70 08/04/20 12:00 98.2 76 30 145/84 (104) 98 08/04/20 12:00 Mechanical Ventilator 08/04/20 11:57 73 08/04/20 11:04 98 37 60 08/04/20 08:00 Mechanical Ventilator 08/04/20 08:00 97.7 107 30 152/69 (96) 96 08/04/20 08:00 70 08/04/20 07:56 78 08/04/20 07:05 79 33 60 08/04/20 04:04 Mechanical Ventilator 08/04/20 04:04 88 08/04/20 04:03 80.0 08/04/20 03:20 65 27 60 08/04/20 01:31 97.1 95 28 105/59 (74) 98 ROS: unchanged HEENT: Thin Trach secretions, other - protruding tongue RHYTHM: NSR, PACs LUNGS: left-sided rhonchi CARDIAC: normal rate, regular rhythm, normal S1 and S2 ABDOMEN: normal bowel sounds, non tender, soft, no organomegaly, G-Tube intact EXTREMITIES: normal range of motion, no calf tenderness, trace edema Laboratory Tests Test 08/04/20 04:59 08/04/20 05:10 08/04/20 12:06 08/04/20 17:38 POC Whole Blood Glucose 229 MG/DL (74-106) H Pending Pending White Blood Count 15.6 K/UL (4.8-10.8) H Red Blood Count 3.52 M/UL (4.70-6.10) L Hemoglobin 9.9 G/DL (14.2-18.0) L Hematocrit 33.1 % (42.0-52.0) L Mean Corpuscular Volume 94 FL (80-99) Mean Corpuscular Hemoglobin 28.2 PG (27.0-31.0) Mean Corpuscular Hemoglobin Concent 30.0 G/DL (32.0-36.0) L Red Cell Distribution Width 18.4 % (11.6-14.8) H Platelet Count 269 K/UL (150-450) Mean Platelet Volume 7.2 FL (6.5-10.1) Neutrophils (%) (Auto) 75.5 % (45.0-75.0) H Lymphocytes (%) (Auto) 16.5 % (20.0-45.0) L Monocytes (%) (Auto) 5.1 % (1.0-10.0) Eosinophils (%) (Auto) 2.6 % (0.0-3.0) Basophils (%) (Auto) 0.3 % (0.0-2.0) Sodium Level 147 MMOL/L (136-145) H Potassium Level 3.8 MMOL/L (3.5-5.1) Chloride Level 114 MMOL/L (98-107) H Carbon Dioxide Level 29 MMOL/L (21-32) Anion Gap 4 mmol/L (5-15) L Blood Urea Nitrogen 18 mg/dL (7-18) Creatinine 0.9 MG/DL (0.55-1.30) Estimat Glomerular Filtration Rate > 60 mL/min (>60) Glucose Level 267 MG/DL (74-106) H Calcium Level 7.9 MG/DL (8.5-10.1) L Magnesium Level 2.3 MG/DL (1.8-2.4) Total Bilirubin 0.3 MG/DL (0.2-1.0) Aspartate Amino Transf (AST/SGOT) 19 U/L (15-37) Alanine Aminotransferase (ALT/SGPT) 8 U/L (12-78) L Alkaline Phosphatase 93 U/L (46-116) Pro-B-Type Natriuretic Peptide 6606 pg/mL (0-125) H Total Protein 7.9 G/DL (6.4-8.2) Albumin 1.5 G/DL (3.4-5.0) L Globulin 6.4 g/dL Albumin/Globulin Ratio 0.2 (1.0-2.7) L Test 08/04/20 23:57 POC Whole Blood Glucose 228 MG/DL (74-106) H Assessment/Plan Assessment/Plan Sepsis Respiratory failure Chronic encephalopathy Paroxysmal atrial ectopy Anemia Dehydration/hypernatremia Hypokalemia Severe protein/calorie malnutrition Hypomagnesemia HC assoc PNA Titrate beta toni Antimicrobials Anti-sz medx Vent support Protein suppl Continue free water by IV route Potassium suppl; Mg++ repl by IV route DVT prophyl [place] MD Aug 05, 2020 01:23
[2020-08-05 04:00] VITALS: BP 131/71
[2020-08-05 05:05] LABS: BASOPHILS % (AUTO) 0.6 % (0.0-2.0); EOSINOPHILS % (AUTO) 3.4 % (0.0-3.0); HEMATOCRIT 32.6 % (42.0-52.0); HEMOGLOBIN 9.7 G/DL (14.2-18.0); LYMPHOCYTES % (AUTO) 19.1 % (20.0-45.0); MEAN CORPUSCULAR VOLUME 94 FL (80-99); MONOCYTES % (AUTO) 5.4 % (1.0-10.0); NEUTROPHILS % (AUTO) 71.4 % (45.0-75.0); PLATELET COUNT 294 K/UL (150-450); RED BLOOD COUNT 3.49 M/UL (4.70-6.10); RED CELL DISTRIBUTION WIDTH 18.4 % (11.6-14.8); WHITE BLOOD COUNT 11.3 K/UL (4.8-10.8)
[2020-08-05 05:33] LABS: ALANINE AMINOTRANSFERASE 11 U/L (12-78); ALBUMIN 1.5 G/DL (3.4-5.0); ALBUMIN/GLOBULIN RATIO 0.2 (1.0-2.7); ALKALINE PHOSPHATASE 85 U/L (46-116); ASPARTATE AMINO TRANSFERASE 16 U/L (15-37); BILIRUBIN,TOTAL 0.3 MG/DL (0.2-1.0); BLOOD UREA NITROGEN 17 mg/dL (7-18); CALCIUM 7.7 MG/DL (8.5-10.1); CARBON DIOXIDE 33 MMOL/L (21-32); CHLORIDE 115 MMOL/L (98-107); CREATININE 0.9 MG/DL (0.55-1.30); POTASSIUM 3.6 MMOL/L (3.5-5.1); SODIUM 149 MMOL/L (136-145)
--- NOTE | 2020-08-05 07:50 | NUR ---
NURSE NOTES:Handoff received from MANNY Mills. Patient received awake, resting in bed, patient is obtunded and does not track or seem to follow verbal commands. Patient is on trach to vent with settings: Shiley 6 AC 16, TV 500, FI02 50% and Peep of 5 tolerating well with saturation of 97%. Patient is placed on seizure, aspiration and contact precautions for HX of ESBL, MRSA and VRE and seizure precautions, side rails are padded. Patient has [place] patent and draining to gravity, R upper PICC is running prescribed fluids. book trimmer is on. Wound issues noted. Will follow plan or care.
--- NOTE | 2020-08-05 07:50 | NUR ---
NURSE HAND-OFF REPORT: Important Events on Shift: FI02 TITRATED DOWN TO 50%,WITH SPO2 95% Patient Status: STABLE Diet: GT OSMOLITE 1.5 AT 20 CC/HR Pending Orders:CHEST X-RAY,VENOUS DOPPLER OF BILATERAL LEGS Pending Results/Labs:CBC,BMP Pending MD notification:NONE Latest Vital Signs: Temperature 98.8 , Pulse 74 , B/P 131 /71 , Respiratory Rate 33 , O2 SAT 95 , Mechanical Ventilator, O2 Flow Rate . Vital Sign Comment: EKG Rhythm: Sinus Rhythm Rhythm change?: N MD Notified?: - MD Response: Latest Ackerman Fall Score: 70 Fall Risk: High Risk Safety Measures: Call light Within Reach, Bed Alarm Zone 3, Side Rails Side Rails x3, Bed position Low and Locked. Fall Precautions: Yellow Socks Yellow Gown Door Sign Report given to MANNY ESPINOZA.
--- NOTE | 2020-08-05 07:56 | NUR ---
NURSE NOTES:Dr Galeana rounded on patient, informed him of patient elevated sodium level and that patient is receiving D5NS.
[2020-08-05 08:00] VITALS: BP 135/78
--- NOTE | 2020-08-05 08:21 | General Progress Note ---
Subjective ROS Limited/Unobtainable: No Constitutional: Reports: malaise, weakness HEENT: Reports: no symptoms Cardiovascular: Reports: no symptoms Respiratory: Reports: cough, shortness of breath, sputum Gastrointestinal/Abdominal: Reports: difficulty swallowing Genitourinary: Reports: no symptoms Neurologic/Psychiatric: Reports: pre-existing deficit, seizure Endocrine: Reports: no symptoms Hematologic/Lymphatic: Reports: anemia Allergies: Coded Allergies: No Known Allergies (Unverified , 07/04/18) All Systems: reviewed and negative except above Subjective no events. w/o complaints +congestion/secretions. remains on iv abx, poorly responsive and nonverbal at baseline Na elevated. on ivf. Objective Last 24 Hour Vital Signs Date Time Temp Pulse Resp B/P (MAP) Pulse Ox O2 Delivery O2 Flow Rate FiO2 08/05/20 07:02 71 31 50 08/05/20 04:00 50 08/05/20 04:00 98.8 74 33 131/71 (91) 95 08/05/20 04:00 Mechanical Ventilator 08/05/20 03:27 82 08/05/20 02:34 75 30 50 08/05/20 00:00 Mechanical Ventilator 08/05/20 00:00 84 08/05/20 00:00 50 08/05/20 00:00 97.9 101 28 137/77 (97) 95 08/04/20 23:00 55 08/04/20 22:52 72 28 55 08/04/20 20:30 60 08/04/20 20:00 94 08/04/20 20:00 Mechanical Ventilator 08/04/20 20:00 99.1 94 28 134/78 (96) 99 08/04/20 20:00 70 08/04/20 18:59 72 30 70 08/04/20 16:00 Mechanical Ventilator 08/04/20 16:00 70 08/04/20 16:00 97.2 71 28 144/87 (106) 97 08/04/20 15:13 94 08/04/20 15:10 85 35 60 08/04/20 12:00 70 08/04/20 12:00 98.2 76 30 145/84 (104) 98 08/04/20 12:00 Mechanical Ventilator 08/04/20 11:57 73 08/04/20 11:04 98 37 60 Intake and Output 08/04/20 08/05/20 19:00 07:00 Intake Total 374 ml 970 ml Output Total 400 ml 500 ml Balance -26 ml 470 ml Free Water 240 ml IV Total 354 ml 510 ml Tube Feeding 20 ml 220 ml Output Urine Total 400 ml 500 ml Laboratory Tests 08/04/20 12:06: POC Whole Blood Glucose [Pending] 08/04/20 17:38: POC Whole Blood Glucose [Pending] 08/04/20 23:57: POC Whole Blood Glucose 228H 08/05/20 03:30: White Blood Count 11.3H, Red Blood Count 3.49L, Hemoglobin 9.7L, Hematocrit 32.6L, Mean Corpuscular Volume 94, Mean Corpuscular Hemoglobin 27.7, Mean Corpuscular Hemoglobin Concent 29.6L, Red Cell Distribution Width 18.4H, Platelet Count 294, Mean Platelet Volume 7.4, Neutrophils (%) (Auto) 71.4, Lymphocytes (%) (Auto) 19.1L, Monocytes (%) (Auto) 5.4, Eosinophils (%) (Auto) 3.4H, Basophils (%) (Auto) 0.6, Sodium Level 149H, Potassium Level 3.6, Chloride Level 115H, Carbon Dioxide Level 33H, Blood Urea Nitrogen 17, Creatinine 0.9, Estimat Glomerular Filtration Rate > 60, Glucose Level 230H, Calcium Level 7.7L, Total Bilirubin 0.3, Aspartate Amino Transf (AST/SGOT) 16, Alanine Aminotransferase (ALT/SGPT) 11L, Alkaline Phosphatase 85, Total Protein 7.8, Albumin 1.5L, Globulin 6.3, Albumin/Globulin Ratio 0.2L 08/05/20 06:10: POC Whole Blood Glucose 232H Height (Feet): 5 Height (Inches): 11.00 Weight (Pounds): 180 Objective General Appearance: WD/WN, lethargic, confused EENT: PERRL/EOMI Neck: non-tender, normal alignment Cardiovascular: normal peripheral pulses, normal rate Respiratory/Chest: chest wall non-tender, lungs clear, normal breath sounds, no respiratory distress Abdomen: normal bowel sounds, non tender, soft, no organomegaly Extremities: normal range of motion Neurologic: disoriented, unresponsive, aphasia Skin: normal pigmentation Assessment/Plan Problem List: (1) Sepsis ICD Codes: A41.9 - Sepsis, unspecified organism SNOMED: 94621644 (2) Pneumonia ICD Codes: J18.9 - Pneumonia, unspecified organism SNOMED: 623147871 (3) Leukocytosis ICD Codes: D72.829 - Elevated white blood cell count, unspecified SNOMED: 596039204, 971997122 (4) POPPY (acute kidney injury) ICD Codes: N17.9 - Acute kidney failure, unspecified SNOMED: 4794946, 63300808 (5) Dyspnea ICD Codes: R06.00 - Dyspnea, unspecified SNOMED: 015853667 (6) Respiratory distress ICD Codes: R06.03 - Acute respiratory distress SNOMED: 059988204 Status: stable, not improved Assessment/Plan: tube feeds. monitor residuals dc ivf Continue broad-spectrum IV antibiotics per id Monitor H&H Transfuse as needed PPI treatment Continue vent support Breathing treatments and suctioning as needed Monitor electrolytes Turn every 2 hours Continue seizure treatment Chano Galeana MD Aug 05, 2020 08:21
--- NOTE | 2020-08-05 08:22 | NUR ---
NURSE NOTES:IV fluids discontinued per MD order. Patient sodium is elevated and patient tolerating G tube feeding.
--- NOTE | 2020-08-05 08:45 | Diagnostic Imaging Report ---
EXAM: XR Chest, 1 View CLINICAL HISTORY: SOB TECHNIQUE: Frontal view of the chest. COMPARISON: Chest radiograph August 04, 2020 FINDINGS/IMPRESSION: Midline tracheostomy tube. Extensive bilateral airspace consolidations, consistent with severe multifocal infiltrates/ARDS. Findings are unchanged when compared to yesterday's chest radiograph. No pneumothorax or definite pleural effusion. Cardiomegaly. Calcified aorta.
--- NOTE | 2020-08-05 08:50 | Critical Care Progress Note ---
Assessment/Plan Assessment/Plan IMPRESSION: probable sepsis, hyponatremia, acute renal failure, chronic respiratory failure, thickened colon diffuse pneumonia, elevated lactic dehydrogenase, abdominal distention, severe protein-calorie malnutrition, seizure disorder. pneumonia, anemia, diffuse pulmonary infiltrates PLAN venous US monitor blood sugars care noted/ monitor lytes monitor acid base repeat CXR transfuse as needed IV antibiotics cultures noted respiratory care Ventilatory support SNF meds supportive care monitor for seizures advance feeds no wean at present oxygen therapy prognosis critical surgical follow up dc planning impression, plan, and exam edited and reviewed in detail care discussed with baker head - Subjective Interval Events: remains ill diffuse infiltrates on CXR duplex pending ROS Limited/Unobtainable: Yes Condition: unchanged EKG Rhythm: Sinus Rhythm Residuals: minimal Tube Feeding Tolerated: yes I&O: Intake and Output 08/04/20 08/05/20 19:00 07:00 Intake Total 374 ml 970 ml Output Total 400 ml 500 ml Balance -26 ml 470 ml Free Water 240 ml IV Total 354 ml 510 ml Tube Feeding 20 ml 220 ml Output Urine Total 400 ml 500 ml Critical Care - Objective Last 24 Hour Vital Signs Date Time Temp Pulse Resp B/P (MAP) Pulse Ox O2 Delivery O2 Flow Rate FiO2 08/05/20 08:00 97.5 63 18 135/78 (97) 96 08/05/20 07:02 71 31 50 08/05/20 04:00 50 08/05/20 04:00 98.8 74 33 131/71 (91) 95 08/05/20 04:00 Mechanical Ventilator 08/05/20 03:27 82 08/05/20 02:34 75 30 50 08/05/20 00:00 Mechanical Ventilator 08/05/20 00:00 84 08/05/20 00:00 50 08/05/20 00:00 97.9 101 28 137/77 (97) 95 08/04/20 23:00 55 08/04/20 22:52 72 28 55 08/04/20 20:30 60 08/04/20 20:00 94 08/04/20 20:00 Mechanical Ventilator 08/04/20 20:00 99.1 94 28 134/78 (96) 99 08/04/20 20:00 70 08/04/20 18:59 72 30 70 08/04/20 16:00 Mechanical Ventilator 08/04/20 16:00 70 08/04/20 16:00 97.2 71 28 144/87 (106) 97 08/04/20 15:13 94 08/04/20 15:10 85 35 60 08/04/20 12:00 70 08/04/20 12:00 98.2 76 30 145/84 (104) 98 08/04/20 12:00 Mechanical Ventilator 08/04/20 11:57 73 08/04/20 11:04 98 37 60 Labs: Laboratory Tests 08/04/20 12:06: POC Whole Blood Glucose [Pending] 08/04/20 17:38: POC Whole Blood Glucose [Pending] 08/04/20 23:57: POC Whole Blood Glucose 228H 08/05/20 03:30: White Blood Count 11.3H, Red Blood Count 3.49L, Hemoglobin 9.7L, Hematocrit 32.6L, Mean Corpuscular Volume 94, Mean Corpuscular Hemoglobin 27.7, Mean Corpuscular Hemoglobin Concent 29.6L, Red Cell Distribution Width 18.4H, Platelet Count 294, Mean Platelet Volume 7.4, Neutrophils (%) (Auto) 71.4, Lymphocytes (%) (Auto) 19.1L, Monocytes (%) (Auto) 5.4, Eosinophils (%) (Auto) 3.4H, Basophils (%) (Auto) 0.6, Sodium Level 149H, Potassium Level 3.6, Chloride Level 115H, Carbon Dioxide Level 33H, Blood Urea Nitrogen 17, Creatinine 0.9, Estimat Glomerular Filtration Rate > 60, Glucose Level 230H, Calcium Level 7.7L, Total Bilirubin 0.3, Aspartate Amino Transf (AST/SGOT) 16, Alanine Aminotransfe rase (ALT/SGPT) 11L, Alkaline Phosphatase 85, Total Protein 7.8, Albumin 1.5L, Globulin 6.3, Albumin/Globulin Ratio 0.2L 08/05/20 06:10: POC Whole Blood Glucose 232H Objective: GENERAL: An ill-appearing male, chronically ill. HEENT: Negative. Tracheostomy midline. The patient is with chronic tongue protrusion. LUNGS: Coarse breath sounds. moderate breath sounds CARDIAC: S1, S2. Regular rate and rhythm. ABDOMEN: Distended. Poor bowel sounds. EXTREMITIES: No cyanosis or clubbing. There is mild edema. NEUROLOGIC: Poorly responsive to pain. Accucheck: 239 Ishaaya,Bakari M MD Aug 05, 2020 08:50
[2020-08-05] MEDS: Pantoprazole Inj IVP SCH (09:33)
[2020-08-05] MEDS: levETIRAcetam 1,000mg/NS100ml 100 ML IVPB SCH ×2 (09:34→20:33)
--- NOTE | 2020-08-05 11:31 | NUR ---
RT titrated FI02 down to 40% to try wean patient in anticipation for discharge.
--- NOTE | 2020-08-05 11:33 | Surgery Progress Note ---
Surgery Progress Note Subjective Symptoms: improved, tolerating diet, passing flatus, BM Objective Last 24 Hour Vital Signs Date Time Temp Pulse Resp B/P (MAP) Pulse Ox O2 Delivery O2 Flow Rate FiO2 08/05/20 08:00 Mechanical Ventilator 08/05/20 08:00 50 08/05/20 08:00 97.5 63 18 135/78 (97) 96 08/05/20 08:00 99 08/05/20 07:02 71 31 50 08/05/20 04:00 50 08/05/20 04:00 98.8 74 33 131/71 (91) 95 08/05/20 04:00 Mechanical Ventilator 08/05/20 03:27 82 08/05/20 02:34 75 30 50 08/05/20 00:00 Mechanical Ventilator 08/05/20 00:00 84 08/05/20 00:00 50 08/05/20 00:00 97.9 101 28 137/77 (97) 95 08/04/20 23:00 55 08/04/20 22:52 72 28 55 08/04/20 20:30 60 08/04/20 20:00 94 08/04/20 20:00 Mechanical Ventilator 08/04/20 20:00 99.1 94 28 134/78 (96) 99 08/04/20 20:00 70 08/04/20 18:59 72 30 70 08/04/20 16:00 Mechanical Ventilator 08/04/20 16:00 70 08/04/20 16:00 97.2 71 28 144/87 (106) 97 08/04/20 15:13 94 08/04/20 15:10 85 35 60 08/04/20 12:00 70 08/04/20 12:00 98.2 76 30 145/84 (104) 98 08/04/20 12:00 Mechanical Ventilator 08/04/20 11:57 73 I&O Intake and Output 08/04/20 08/05/20 19:00 07:00 Intake Total 374 ml 970 ml Output Total 400 ml 500 ml Balance -26 ml 470 ml Free Water 240 ml IV Total 354 ml 510 ml Tube Feeding 20 ml 220 ml Output Urine Total 400 ml 500 ml Dressing: saturated Cardiovascular: RSR Respiratory: decreased breath sounds Abdomen: soft, non-tender, present bowel sounds, non-distended Extremities: no edema, no tenderness, no cyanosis Laboratory Tests Test 08/04/20 12:06 08/04/20 17:38 08/04/20 23:57 08/05/20 03:30 POC Whole Blood Glucose Pending Pending 228 MG/DL (74-106) H White Blood Count 11.3 K/UL (4.8-10.8) H Red Blood Count 3.49 M/UL (4.70-6.10) L Hemoglobin 9.7 G/DL (14.2-18.0) L Hematocrit 32.6 % (42.0-52.0) L Mean Corpuscular Volume 94 FL (80-99) Mean Corpuscular Hemoglobin 27.7 PG (27.0-31.0) Mean Corpuscular Hemoglobin Concent 29.6 G/DL (32.0-36.0) L Red Cell Distribution Width 18.4 % (11.6-14.8) H Platelet Count 294 K/UL (150-450) Mean Platelet Volume 7.4 FL (6.5-10.1) Neutrophils (%) (Auto) 71.4 % (45.0-75.0) Lymphocytes (%) (Auto) 19.1 % (20.0-45.0) L Monocytes (%) (Auto) 5.4 % (1.0-10.0) Eosinophils (%) (Auto) 3.4 % (0.0-3.0) H Basophils (%) (Auto) 0.6 % (0.0-2.0) Sodium Level 149 MMOL/L (136-145) H Potassium Level 3.6 MMOL/L (3.5-5.1) Chloride Level 115 MMOL/L (98-107) H Carbon Dioxide Level 33 MMOL/L (21-32) H Blood Urea Nitrogen 17 mg/dL (7-18) Creatinine 0.9 MG/DL (0.55-1.30) Estimat Glomerular Filtration Rate > 60 mL/min (>60) Glucose Level 230 MG/DL (74-106) H Calcium Level 7.7 MG/DL (8.5-10.1) L Total Bilirubin 0.3 MG/DL (0.2-1.0) Aspartate Amino Transf (AST/SGOT) 16 U/L (15-37) Alanine Aminotransferase (ALT/SGPT) 11 U/L (12-78) L Alkaline Phosphatase 85 U/L (46-116) Total Protein 7.8 G/DL (6.4-8.2) Albumin 1.5 G/DL (3.4-5.0) L Globulin 6.3 g/dL Albumin/Globulin Ratio 0.2 (1.0-2.7) L Test 08/05/20 06:10 POC Whole Blood Glucose 232 MG/DL (74-106) H Plan Problems: (1) Sepsis Assessment & Plan: 75M. cxr with possible free air. ct done and noted. abd distended. exam limited leukocytosis abnormal labs improving with fluids trach malfunction now improved on vent support cont current care will monitor and follow with recs PICC line trend labs transfuse prbc prn trach leak needs trach change trach changed cxr noted infiltrates labs improving d/c planning cont abx as per ID ABDOMEN: Liver: Unremarkable. Gallbladder and bile ducts: Unremarkable. No calcified stones. Pancreas: Unremarkable. Spleen: Unremarkable. Adrenals: Unremarkable. Kidneys and ureters: Unremarkable. No hydronephrosis. Stomach and bowel: Mildly thickened sigmoid colon which may be underdistention, chronic, colitis, versus lesion. Colonic air-distention which may be ileus. No bowel obstruction or diverticulitis. PELVIS: Appendix: No findings to suggest acute appendicitis. Bladder: Thickened bladder which may be chronic, cystitis, versus lesion. Vera catheter in the bladder. Reproductive: Unremarkable as visualized. ABDOMEN and PELVIS: Intraperitoneal space: No free air. Bones/joints: No acute fracture. Soft tissues: Unremarkable. Vasculature: Unremarkable. Lymph nodes: Unremarkable. Tubes, lines and devices: Gastrostomy tube in the stomach. IMPRESSION: 1. Mildly thickened sigmoid colon which may be underdistention, chronic, colitis, versus lesion. Colonic air-distention which may be ileus. No bowel obstruction or diverticulitis. 2. Thickened bladder which may be chronic, cystitis, versus lesion. 3. Bibasilar infiltrates. Small left pleural effusion. (2) Pneumonia (3) Free intraperitoneal air Assessment & Plan: Apparent lucency underlying the right hemidiaphragm. This may potentially be artifactual. Recommend correlation with CT of the abdomen to exclude the possibility of free peritoneal air, particularly if there is a history of abdominal pain. Extensive interstitial and alveolar infiltrates concerning for multifocal pneumonia. Possibility of underlying chronic interstitial/chronic lung disease and scarring can also be considered. Indwelling tracheostomy tube. (4) Perforated abdominal viscus Assessment & Plan: CT reviewed no free air artifact on cxr abd distended cannot tell tender given condition will monitor (5) Decubitus skin ulcer (6) Hyperglycemia (7) Leukocytosis (8) GIB (gastrointestinal bleeding) (9) POPPY (acute kidney injury) (10) Dyspnea (11) Respiratory distress Assessment & Plan: trach changed 6f shiley stable now Abdoul Lucas Aug 05, 2020 11:33
[2020-08-05 11:41] VITALS: BP 150/84
--- NOTE | 2020-08-05 11:50 | NUR ---
NURSE NOTES:Patient unable to tolerate FI02 of 40% due to desaturation, RT aware and titrated FI02 up to 50%, patient o2 saturation now 94%.
--- NOTE | 2020-08-05 12:24 | Infectious Diseases Prog Note ---
Assessment/Plan Assessment/Plan A 1. Acinetobacter pneumonia COVID 19 negative 2. Ventilator dependent respiratory failure 3. colitis 4. UTI 5. Diabetes mellitus 6. Hypertension 7. COPD P 1. Continue Unasyn X 4 days 2. Negative stool for c.diff 3. will follow up cultures Subjective ROS Limited/Unobtainable: Yes Constitutional: Denies: fever Allergies: Coded Allergies: No Known Allergies (Unverified , 07/04/18) Objective Last 24 Hour Vital Signs Date Time Temp Pulse Resp B/P (MAP) Pulse Ox O2 Delivery O2 Flow Rate FiO2 08/05/20 12:00 Mechanical Ventilator 08/05/20 12:00 50 08/05/20 11:41 98.0 89 18 150/84 (106) 98 08/05/20 08:00 Mechanical Ventilator 08/05/20 08:00 50 08/05/20 08:00 97.5 63 18 135/78 (97) 96 08/05/20 08:00 99 08/05/20 07:02 71 31 50 08/05/20 04:00 50 08/05/20 04:00 98.8 74 33 131/71 (91) 95 08/05/20 04:00 Mechanical Ventilator 08/05/20 03:27 82 08/05/20 02:34 75 30 50 08/05/20 00:00 Mechanical Ventilator 08/05/20 00:00 84 08/05/20 00:00 50 08/05/20 00:00 97.9 101 28 137/77 (97) 95 08/04/20 23:00 55 08/04/20 22:52 72 28 55 08/04/20 20:30 60 08/04/20 20:00 94 08/04/20 20:00 Mechanical Ventilator 08/04/20 20:00 99.1 94 28 134/78 (96) 99 08/04/20 20:00 70 08/04/20 18:59 72 30 70 08/04/20 16:00 Mechanical Ventilator 08/04/20 16:00 70 08/04/20 16:00 97.2 71 28 144/87 (106) 97 08/04/20 15:13 94 08/04/20 15:10 85 35 60 Height (Feet): 5 Height (Inches): 11.00 Weight (Pounds): 180 HEENT: status post trach Respiratory/Chest: lungs clear, other - on ventilator, FIO2=50% Cardiovascular: normal rate, other - R arm PICC line Extremities: other - edema more in hands Neurologic/Psychiatric: aphasia, other - Twiching of tongue Laboratory Tests Test 08/04/20 17:38 08/04/20 23:57 08/05/20 03:30 08/05/20 06:10 POC Whole Blood Glucose Pending 228 MG/DL (74-106) H 232 MG/DL (74-106) H White Blood Count 11.3 K/UL (4.8-10.8) H Red Blood Count 3.49 M/UL (4.70-6.10) L Hemoglobin 9.7 G/DL (14.2-18.0) L Hematocrit 32.6 % (42.0-52.0) L Mean Corpuscular Volume 94 FL (80-99) Mean Corpuscular Hemoglobin 27.7 PG (27.0-31.0) Mean Corpuscular Hemoglobin Concent 29.6 G/DL (32.0-36.0) L Red Cell Distribution Width 18.4 % (11.6-14.8) H Platelet Count 294 K/UL (150-450) Mean Platelet Volume 7.4 FL (6.5-10.1) Neutrophils (%) (Auto) 71.4 % (45.0-75.0) Lymphocytes (%) (Auto) 19.1 % (20.0-45.0) L Monocytes (%) (Auto) 5.4 % (1.0-10.0) Eosinophils (%) (Auto) 3.4 % (0.0-3.0) H Basophils (%) (Auto) 0.6 % (0.0-2.0) Sodium Level 149 MMOL/L (136-145) H Potassium Level 3.6 MMOL/L (3.5-5.1) Chloride Level 115 MMOL/L (98-107) H Carbon Dioxide Level 33 MMOL/L (21-32) H Blood Urea Nitrogen 17 mg/dL (7-18) Creatinine 0.9 MG/DL (0.55-1.30) Estimat Glomerular Filtration Rate > 60 mL/min (>60) Glucose Level 230 MG/DL (74-106) H Calcium Level 7.7 MG/DL (8.5-10.1) L Total Bilirubin 0.3 MG/DL (0.2-1.0) Aspartate Amino Transf (AST/SGOT) 16 U/L (15-37) Alanine Aminotransferase (ALT/SGPT) 11 U/L (12-78) L Alkaline Phosphatase 85 U/L (46-116) Total Protein 7.8 G/DL (6.4-8.2) Albumin 1.5 G/DL (3.4-5.0) L Globulin 6.3 g/dL Albumin/Globulin Ratio 0.2 (1.0-2.7) L Test 08/05/20 12:12 POC Whole Blood Glucose 226 MG/DL (74-106) H Current Medications Medications (Trade) Dose Ordered Sig/Derrick Route PRN Reason Start Time Stop Time Status Last Admin Dose Admin Acetaminophen (Tylenol) 650 mg Q4H PRN RECTAL Mild Pain (Pain Scale 1-3) 07/28/20 21:15 08/27/20 21:14 08/03/20 21:11 Acetaminophen (Tylenol) 650 mg Q6H PRN GT Temp >100.5 08/02/20 12:45 09/01/20 12:44 08/02/20 21:08 Ampicillin Sodium/ Sulbactam Sodium 3 gm/Sodium Chloride 110 ml @ 220 mls/hr Q6HR IVPB 07/31/20 13:00 08/07/20 12:59 08/05/20 12:18 Chlorhexidine Gluconate (Gwendolyn-Hex 2%) 1 applic DAILY@2000 TOPIC 07/30/20 20:00 10/28/20 19:59 08/04/20 20:49 Clonidine HCl (Catapres Tab) 0.1 mg Q4H PRN ORAL For High Blood Pressure 07/28/20 21:15 10/26/20 21:14 Dextrose (Dextrose 50%) 25 ml Q30M PRN IV Hypoglycemia 08/02/20 12:45 10/31/20 12:44 Dextrose (Dextrose 50%) 50 ml Q30M PRN IV Hypoglycemia 08/02/20 12:45 10/31/20 12:44 Insulin Aspart (NovoLOG) per nurse, pt now on g-t... Q6HR SUBQ 08/02/20 12:00 10/31/20 11:59 08/05/20 12:17 Levetiracetam 100 ml @ 400 mls/hr Q12HR IVPB 07/28/20 21:15 10/26/20 21:14 08/05/20 09:34 Lorazepam (Ativan 2mg/ml 1ml) 1 mg Q3H PRN IV For Anxiety 08/02/20 15:15 08/09/20 15:14 08/02/20 15:31 Pantoprazole (Protonix) 40 mg DAILY IVP 07/29/20 09:00 08/28/20 08:59 08/05/20 09:33 Carlos Amaro MD Aug 05, 2020 12:24
[2020-08-05 16:00] VITALS: BP 144/72
--- NOTE | 2020-08-05 19:29 | NUR ---
NURSE HAND-OFF REPORT: Important Events on Shift: Patient Status: stable Diet: Osmolyte 1.5 @20ML/HR continuous Pending Orders: Venous duplex Pending Results/Labs: Pending MD notification: Latest Vital Signs: Temperature 98.5 , Pulse 87 , B/P 144 /72 , Respiratory Rate 20 , O2 SAT 96 , Mechanical Ventilator, O2 Flow Rate . Vital Sign Comment: EKG Rhythm: Sinus Rhythm Rhythm change?: N MD Notified?: - MD Response: Latest Ackerman Fall Score: 55 Fall Risk: High Risk Safety Measures: Call light Within Reach, Bed Alarm Zone 3, Side Rails Side Rails x3, Bed position Low and Locked. Fall Precautions: Yellow Socks Yellow Gown Door Sign Report given to MANNY Carty.
--- NOTE | 2020-08-05 19:30 | NUR ---
NURSE NOTES: Received report from MANNY Argueta. Pt appears obtunded, non responsive to verbal stimuli. Opens eyes to tactile stimuli. Vitals WNL. Lowgrade temperature of 99.5 axil. 5-lead EKG shows ST at 101 bpm. Pt saturating 100% on vent settings of AC 16, Vt 500, and fiO2 of 50%. Made aware of fiO2 titration in order to discharge patient to [facility]. ZOE PICC patent and intact. G-tube running Osmolite 1.5 at 20 mL with 0 residual. Vera draining well to gravity. Bed kept in lowest and locked position. Bed alarm on. Side rails upx3. Will continue monitoring.
[2020-08-05 20:00] VITALS: BP 141/80
--- NOTE | 2020-08-05 20:00 | NUR ---
NURSE NOTES: RT at bedside. Will attempt to gradually titrate down from 50% to 40% Saturating 98% on FiO2 of 45% Will continue monitoring.
[2020-08-05] MEDS: Dyna-Hex 2% Top Sol 2oz TOPIC SCH (20:33)
[2020-08-05] MEDS ORDERED: Milk of Magnesia 30ml Ud GT PRN (21:45)
--- NOTE | 2020-08-05 22:50 | Cardiology Progress Note ---
Subjective DATE OF SERVICE: Aug 05, 2020 On vent support Tolerating tube feedings; still requiring IVF for free water def Monitor: sinus with occ PAC's CXR: (08/05) extensive bilateral infiltrates. Objective Last 24 Hour Vital Signs Date Time Temp Pulse Resp B/P (MAP) Pulse Ox O2 Delivery O2 Flow Rate FiO2 08/05/20 20:00 50 08/05/20 20:00 Mechanical Ventilator 08/05/20 20:00 99.4 82 20 141/80 (100) 100 08/05/20 19:50 111 31 50 08/05/20 16:30 87 08/05/20 16:00 50 08/05/20 16:00 98.5 95 20 144/72 (96) 96 08/05/20 16:00 Mechanical Ventilator 08/05/20 15:01 104 29 50 08/05/20 12:00 88 08/05/20 12:00 Mechanical Ventilator 08/05/20 12:00 50 08/05/20 11:41 98.0 89 18 150/84 (106) 98 08/05/20 11:07 116 31 50 08/05/20 08:00 Mechanical Ventilator 08/05/20 08:00 50 08/05/20 08:00 97.5 63 18 135/78 (97) 96 08/05/20 08:00 99 08/05/20 07:02 71 31 50 08/05/20 04:00 50 08/05/20 04:00 98.8 74 33 131/71 (91) 95 08/05/20 04:00 Mechanical Ventilator 08/05/20 03:27 82 08/05/20 02:34 75 30 50 08/05/20 00:00 Mechanical Ventilator 08/05/20 00:00 84 08/05/20 00:00 50 08/05/20 00:00 97.9 101 28 137/77 (97) 95 08/04/20 23:00 55 08/04/20 22:52 72 28 55 ROS: unchanged HEENT: Thin Trach secretions, other - protruding tongue RHYTHM: NSR, PACs LUNGS: left-sided rhonchi CARDIAC: normal rate, regular rhythm, normal S1 and S2 ABDOMEN: normal bowel sounds, non tender, soft, no organomegaly, G-Tube intact EXTREMITIES: normal range of motion, no calf tenderness, trace edema Laboratory Tests Test 08/04/20 23:57 08/05/20 03:30 08/05/20 06:10 08/05/20 12:12 POC Whole Blood Glucose 228 MG/DL (74-106) H 232 MG/DL (74-106) H 226 MG/DL (74-106) H White Blood Count 11.3 K/UL (4.8-10.8) H Red Blood Count 3.49 M/UL (4.70-6.10) L Hemoglobin 9.7 G/DL (14.2-18.0) L Hematocrit 32.6 % (42.0-52.0) L Mean Corpuscular Volume 94 FL (80-99) Mean Corpuscular Hemoglobin 27.7 PG (27.0-31.0) Mean Corpuscular Hemoglobin Concent 29.6 G/DL (32.0-36.0) L Red Cell Distribution Width 18.4 % (11.6-14.8) H Platelet Count 294 K/UL (150-450) Mean Platelet Volume 7.4 FL (6.5-10.1) Neutrophils (%) (Auto) 71.4 % (45.0-75.0) Lymphocytes (%) (Auto) 19.1 % (20.0-45.0) L Monocytes (%) (Auto) 5.4 % (1.0-10.0) Eosinophils (%) (Auto) 3.4 % (0.0-3.0) H Basophils (%) (Auto) 0.6 % (0.0-2.0) Sodium Level 149 MMOL/L (136-145) H Potassium Level 3.6 MMOL/L (3.5-5.1) Chloride Level 115 MMOL/L (98-107) H Carbon Dioxide Level 33 MMOL/L (21-32) H Blood Urea Nitrogen 17 mg/dL (7-18) Creatinine 0.9 MG/DL (0.55-1.30) Estimat Glomerular Filtration Rate > 60 mL/min (>60) Glucose Level 230 MG/DL (74-106) H Calcium Level 7.7 MG/DL (8.5-10.1) L Total Bilirubin 0.3 MG/DL (0.2-1.0) Aspartate Amino Transf (AST/SGOT) 16 U/L (15-37) Alanine Aminotransferase (ALT/SGPT) 11 U/L (12-78) L Alkaline Phosphatase 85 U/L (46-116) Total Protein 7.8 G/DL (6.4-8.2) Albumin 1.5 G/DL (3.4-5.0) L Globulin 6.3 g/dL Albumin/Globulin Ratio 0.2 (1.0-2.7) L Assessment/Plan Assessment/Plan Sepsis Respiratory failure Chronic encephalopathy Paroxysmal atrial ectopy Anemia Dehydration/hypernatremia Hypokalemia Severe protein/calorie malnutrition Hypomagnesemia HC assoc PNA CHF, ac/chr diastolic Titrate beta toni Antimicrobials Anti-sz medx Vent support Protein suppl Continue free water by IV route Diuresis Potassium suppl; Mg++ repl by IV route DVT prophyl [place] MD Aug 05, 2020 22:50
[2020-08-06] VITALS: BP 143/86
--- NOTE | 2020-08-06 00:09 | NUR ---
NURSE NOTES: Titrated fiO2 down to 40% from 45% with RTArnold, at bedside Patient is saturating 97%. Suction, oral care, and repositioning provided for patient as needed.
[2020-08-06] MEDS: NovoLOG Insulin Flexpen SUBQ SCH ×4 (00:25→17:32)
[2020-08-06] MEDS: Unasyn 3gm in NS 110ml IVPB SCH ×4 (00:26→17:32)
[2020-08-06 04:00] VITALS: BP 144/90
--- NOTE | 2020-08-06 07:04 | NUR ---
NURSE HAND-OFF REPORT: Important Events on Shift: No changes Patient Status: Stable Diet: Osmolite 1.5 Pending Orders: Pending Results/Labs: Pending MD notification: Latest Vital Signs: Temperature 98.8 , Pulse 102 , B/P 144 /90 , Respiratory Rate 20 , O2 SAT 98 , Mechanical Ventilator, O2 Flow Rate . Vital Sign Comment: WNL EKG Rhythm: Sinus Tachycardia Rhythm change?: N MD Notified?: - MD Response: Latest Ackerman Fall Score: 55 Fall Risk: High Risk Safety Measures: Call light Within Reach, Bed Alarm Zone 1, Side Rails Side Rails x3, Bed position Low and Locked. Fall Precautions: Yellow Socks Yellow Gown Door Sign Report given to .
--- NOTE | 2020-08-06 07:05 | NUR ---
RD ASSESSMENT & RECOMMENDATIONS SEE CARE ACTIVITY FOR COMPLETE ASSESSMENT DAILY ESTIMATED NEEDS: Needs based on Critical care, wound 82kg 22-28 kcals/kg 9001-9113 total kcals 1.25-2 g protein/kg 103-164 g total protein 25-30 mL/kg 0654-3144 total fluid mLs NUTRITION DIAGNOSIS: * Swallowing difficulty R/T respiratory status, dysphagia as evidenced by trach/vent dep, PEG dep. CURRENT TF: Osmolite 1.5 @20 ml/hr ENTERAL NUTRITION RECOMMENDATIONS: Glucerna 1.5 @ 55ml/hr x 24 hrs to provide 1320ml, 1980kcal, 109g prot, 1002ml free water * As medically able, rec GLUCERNA 1.5. Start @25ml/hr for 6 hrs, advance as tolerated 10ml/hr q4-6 hrs to goal. * HOB over 30 degrees/ water flush per MD ADDITIONAL RECOMMENDATIONS: * Re-calibrated bedcale wt for accurate CBW * Monitor lytes, replete as needed * Rec wound care eval -> Stage 2, add Vit C 250mg QD + MANJIT BID * Close BG monitoring: previously w/ hypoglycemic episode, now BGs 200's -> Rec TF change to carb controlled TF * Monitor ability to feed- TF started, at low rate .
--- NOTE | 2020-08-06 07:44 | NUR ---
NURSE NOTES:Handoff received from MANNY Carty. Patient received awake and resting in bed, patient is obtunded and does not track or seem to follow verbal commands. Patient is on trach to vent with settings: Shiley 6 AC 16, TV 500, FI02 45% and Peep of 5 tolerating well with saturation of 98%. Patient is placed on seizure, aspiration and contact precautions for HX of ESBL, MRSA and VRE and seizure precautions, side rails are padded and bed in the low and locked position with call ligth on bed. Patient has [place] patent and draining to gravity, R upper PICC is running prescribed fluids. manager loss prevention is on. Wound issues noted. Will follow plan or care.
[2020-08-06 08:00] VITALS: BP 154/80
[2020-08-06 08:34] LABS: BASOPHILS % (AUTO) 0.9 % (0.0-2.0); EOSINOPHILS % (AUTO) 4.8 % (0.0-3.0); HEMATOCRIT 31.4 % (42.0-52.0); HEMOGLOBIN 9.9 G/DL (14.2-18.0); LYMPHOCYTES % (AUTO) 18.9 % (20.0-45.0); MEAN CORPUSCULAR VOLUME 87 FL (80-99); MONOCYTES % (AUTO) 5.2 % (1.0-10.0); NEUTROPHILS % (AUTO) 70.3 % (45.0-75.0); PLATELET COUNT 342 K/UL (150-450); RED BLOOD COUNT 3.59 M/UL (4.70-6.10); RED CELL DISTRIBUTION WIDTH 18.8 % (11.6-14.8); WHITE BLOOD COUNT 10.8 K/UL (4.8-10.8)
[2020-08-06 08:46] LABS: ALANINE AMINOTRANSFERASE 8 U/L (12-78); ALBUMIN 1.5 G/DL (3.4-5.0); ALBUMIN/GLOBULIN RATIO 0.2 (1.0-2.7); ALKALINE PHOSPHATASE 83 U/L (46-116); ANION GAP 3 mmol/L (5-15); ASPARTATE AMINO TRANSFERASE 18 U/L (15-37); BILIRUBIN,TOTAL 0.4 MG/DL (0.2-1.0); BLOOD UREA NITROGEN 12 mg/dL (7-18); CALCIUM 7.6 MG/DL (8.5-10.1); CARBON DIOXIDE 33 MMOL/L (21-32); CHLORIDE 110 MMOL/L (98-107); POTASSIUM 3.7 MMOL/L (3.5-5.1); SODIUM 146 MMOL/L (136-145)
--- NOTE | 2020-08-06 09:27 | Critical Care Progress Note ---
Assessment/Plan Assessment/Plan IMPRESSION: probable sepsis, hyponatremia, acute renal failure, chronic respiratory failure, thickened colon diffuse pneumonia, elevated lactic dehydrogenase, abdominal distention, severe protein-calorie malnutrition, seizure disorder. pneumonia, anemia, diffuse pulmonary infiltrates PLAN venous US pending monitor blood sugars care noted/ monitor lytes monitor acid base repeat CXR- ordered transfuse as needed IV antibiotics cultures noted respiratory care Ventilatory support SNF meds supportive care monitor for seizures advance feeds no wean at present oxygen therapy prognosis critical surgical follow up dc planning once stable taper oxygen impression, plan, and exam edited and reviewed in detail care discussed with continuity clerk - Subjective Interval Events: remains ill on vent diffuse infiltrates noted ROS Limited/Unobtainable: Yes Condition: critical EKG Rhythm: Sinus Rhythm Residuals: minimal Tube Feeding Tolerated: yes I&O: Intake and Output 08/05/20 08/06/20 19:00 07:00 Intake Total 280 ml 596 ml Output Total 525 ml 1400 ml Balance -245 ml -804 ml Free Water 40 ml 40 ml IV Total 316 ml Tube Feeding 240 ml 240 ml Output Urine Total 525 ml 1400 ml Critical Care - Objective Last 24 Hour Vital Signs Date Time Temp Pulse Resp B/P (MAP) Pulse Ox O2 Delivery O2 Flow Rate FiO2 08/06/20 08:00 45 08/06/20 07:10 70 30 50 08/06/20 04:01 102 08/06/20 04:00 50 08/06/20 04:00 98.8 98 20 144/90 (108) 98 08/06/20 04:00 Mechanical Ventilator 08/06/20 02:50 72 31 50 08/06/20 00:00 50 08/06/20 00:00 99.1 82 20 143/86 (105) 91 08/06/20 00:00 Mechanical Ventilator 08/06/20 00:00 107 08/05/20 23:10 98 26 40 08/05/20 20:05 90 08/05/20 20:00 50 08/05/20 20:00 Mechanical Ventilator 08/05/20 20:00 99.4 82 20 141/80 (100) 100 08/05/20 19:50 111 31 50 08/05/20 16:30 87 08/05/20 16:00 50 08/05/20 16:00 98.5 95 20 144/72 (96) 96 08/05/20 16:00 Mechanical Ventilator 08/05/20 15:01 104 29 50 08/05/20 12:00 88 08/05/20 12:00 Mechanical Ventilator 08/05/20 12:00 50 08/05/20 11:41 98.0 89 18 150/84 (106) 98 08/05/20 11:07 116 31 50 Labs: Laboratory Tests Test 08/05/20 12:12 08/06/20 00:20 08/06/20 05:19 08/06/20 08:05 POC Whole Blood Glucose 226 MG/DL (74-106) H 210 MG/DL (74-106) H 210 MG/DL (74-106) H White Blood Count 10.8 K/UL (4.8-10.8) Red Blood Count 3.59 M/UL (4.70-6.10) L Hemoglobin 9.9 G/DL (14.2-18.0) L Hematocrit 31.4 % (42.0-52.0) L Mean Corpuscular Volume 87 FL (80-99) Mean Corpuscular Hemoglobin 27.5 PG (27.0-31.0) Mean Corpuscular Hemoglobin Concent 31.5 G/DL (32.0-36.0) L Red Cell Distribution Width 18.8 % (11.6-14.8) H Platelet Count 342 K/UL (150-450) Mean Platelet Volume 7.1 FL (6.5-10.1) Neutrophils (%) (Auto) 70.3 % (45.0-75.0) Lymphocytes (%) (Auto) 18.9 % (20.0-45.0) L Monocytes (%) (Auto) 5.2 % (1.0-10.0) Eosinophils (%) (Auto) 4.8 % (0.0-3.0) H Basophils (%) (Auto) 0.9 % (0.0-2.0) Sodium Level 146 MMOL/L (136-145) H Potassium Level 3.7 MMOL/L (3.5-5.1) Chloride Level 110 MMOL/L (98-107) H Carbon Dioxide Level 33 MMOL/L (21-32) H Anion Gap 3 mmol/L (5-15) L Blood Urea Nitrogen 12 mg/dL (7-18) Creatinine 1.0 MG/DL (0.55-1.30) Estimat Glomerular Filtration Rate > 60 mL/min (>60) Glucose Level 253 MG/DL (74-106) H Calcium Level 7.6 MG/DL (8.5-10.1) L Total Bilirubin 0.4 MG/DL (0.2-1.0) Aspartate Amino Transf (AST/SGOT) 18 U/L (15-37) Alanine Aminotransferase (ALT/SGPT) 8 U/L (12-78) L Alkaline Phosphatase 83 U/L (46-116) Total Protein 8.3 G/DL (6.4-8.2) H Albumin 1.5 G/DL (3.4-5.0) L Globulin 6.8 g/dL Albumin/Globulin Ratio 0.2 (1.0-2.7) L Objective: GENERAL: An ill-appearing male, chronically ill. HEENT: Negative. Tracheostomy midline. The patient is with chronic tongue protrusion. LUNGS: Coarse breath sounds. moderate breath sounds CARDIAC: S1, S2. Regular rate and rhythm. ABDOMEN: Distended. Poor bowel sounds. EXTREMITIES: No cyanosis or clubbing. There is mild edema. NEUROLOGIC: Poorly responsive to pain. Accucheck: 210 Bakari Montanez MD Aug 06, 2020 09:27
[2020-08-06] MEDS: Pantoprazole Inj IVP SCH (09:40)
[2020-08-06] MEDS: levETIRAcetam 1,000mg/NS100ml 100 ML IVPB SCH ×2 (09:41→20:16)
--- NOTE | 2020-08-06 10:23 | NUR ---
NURSE NOTES:Called nursing supervisor [facility] house to see if someone can cover for my patients, whilst I take Chencho down for CT scan.
--- NOTE | 2020-08-06 11:10 | NUR ---
NURSE NOTES:Escorted patient down to CT with Respiratory therapist for imaging study.
--- NOTE | 2020-08-06 11:32 | NUR ---
CASE MANAGEMENT:REVIEW 08/06/20 SI: SEPSIS. PNA. PERF ABD VISCUS TRACH/VENT/GT DEPENDENT 98.5 99 20 154/80 100% ON VENT W/45% FIO2 IS: IV AMPICILLIN Q6HRS IV KEPPRA Q12 IV PROTONIX Q12 : STEP DOWN UNIT DCP: FROM [facility]
--- NOTE | 2020-08-06 11:33 | Infectious Diseases Prog Note ---
Assessment/Plan Assessment/Plan antibiotics : unasyn 07.31.20 - A 1. acenitobacter pneumonia COVID 19 negative 2. respiratory failure 3. colitis 4. UTI 5. diabetes mellitus 6. hypertension 7. COPD P 1. continue unasyn 3 more days 2. will follow up cultures Subjective ROS Limited/Unobtainable: Yes Allergies: Coded Allergies: No Known Allergies (Unverified , 07/04/18) Objective Last 24 Hour Vital Signs Date Time Temp Pulse Resp B/P (MAP) Pulse Ox O2 Delivery O2 Flow Rate FiO2 08/06/20 08:00 98.5 99 20 154/80 (104) 100 08/06/20 08:00 87 08/06/20 08:00 Mechanical Ventilator 08/06/20 08:00 45 08/06/20 07:10 70 30 50 08/06/20 04:01 102 08/06/20 04:00 50 08/06/20 04:00 98.8 98 20 144/90 (108) 98 08/06/20 04:00 Mechanical Ventilator 08/06/20 02:50 72 31 50 08/06/20 00:00 50 08/06/20 00:00 99.1 82 20 143/86 (105) 91 08/06/20 00:00 Mechanical Ventilator 08/06/20 00:00 107 08/05/20 23:10 98 26 40 08/05/20 20:05 90 08/05/20 20:00 50 08/05/20 20:00 Mechanical Ventilator 08/05/20 20:00 99.4 82 20 141/80 (100) 100 08/05/20 19:50 111 31 50 08/05/20 16:30 87 08/05/20 16:00 50 08/05/20 16:00 98.5 95 20 144/72 (96) 96 08/05/20 16:00 Mechanical Ventilator 08/05/20 15:01 104 29 50 08/05/20 12:00 88 08/05/20 12:00 Mechanical Ventilator 08/05/20 12:00 50 08/05/20 11:41 98.0 89 18 150/84 (106) 98 Height (Feet): 5 Height (Inches): 11.00 Weight (Pounds): 180 HEENT: status post trach Respiratory/Chest: crackles/rales Cardiovascular: normal rate, regular rhythm, no gallop/murmur Abdomen: soft, non tender, other - GT Extremities: other - + edema Laboratory Tests Test 08/05/20 12:12 08/06/20 00:20 08/06/20 05:19 08/06/20 08:05 POC Whole Blood Glucose 226 MG/DL (74-106) H 210 MG/DL (74-106) H 210 MG/DL (74-106) H White Blood Count 10.8 K/UL (4.8-10.8) Red Blood Count 3.59 M/UL (4.70-6.10) L Hemoglobin 9.9 G/DL (14.2-18.0) L Hematocrit 31.4 % (42.0-52.0) L Mean Corpuscular Volume 87 FL (80-99) Mean Corpuscular Hemoglobin 27.5 PG (27.0-31.0) Mean Corpuscular Hemoglobin Concent 31.5 G/DL (32.0-36.0) L Red Cell Distribution Width 18.8 % (11.6-14.8) H Platelet Count 342 K/UL (150-450) Mean Platelet Volume 7.1 FL (6.5-10.1) Neutrophils (%) (Auto) 70.3 % (45.0-75.0) Lymphocytes (%) (Auto) 18.9 % (20.0-45.0) L Monocytes (%) (Auto) 5.2 % (1.0-10.0) Eosinophils (%) (Auto) 4.8 % (0.0-3.0) H Basophils (%) (Auto) 0.9 % (0.0-2.0) Sodium Level 146 MMOL/L (136-145) H Potassium Level 3.7 MMOL/L (3.5-5.1) Chloride Level 110 MMOL/L (98-107) H Carbon Dioxide Level 33 MMOL/L (21-32) H Anion Gap 3 mmol/L (5-15) L Blood Urea Nitrogen 12 mg/dL (7-18) Creatinine 1.0 MG/DL (0.55-1.30) Estimat Glomerular Filtration Rate > 60 mL/min (>60) Glucose Level 253 MG/DL (74-106) H Calcium Level 7.6 MG/DL (8.5-10.1) L Total Bilirubin 0.4 MG/DL (0.2-1.0) Aspartate Amino Transf (AST/SGOT) 18 U/L (15-37) Alanine Aminotransferase (ALT/SGPT) 8 U/L (12-78) L Alkaline Phosphatase 83 U/L (46-116) Total Protein 8.3 G/DL (6.4-8.2) H Albumin 1.5 G/DL (3.4-5.0) L Globulin 6.8 g/dL Albumin/Globulin Ratio 0.2 (1.0-2.7) L Current Medications Medications (Trade) Dose Ordered Sig/Derrick Route PRN Reason Start Time Stop Time Status Last Admin Dose Admin Acetaminophen (Tylenol) 650 mg Q4H PRN RECTAL Mild Pain (Pain Scale 1-3) 07/28/20 21:15 08/27/20 21:14 08/03/20 21:11 Acetaminophen (Tylenol) 650 mg Q6H PRN GT Temp >100.5 08/02/20 12:45 09/01/20 12:44 08/02/20 21:08 Ampicillin Sodium/ Sulbactam Sodium 3 gm/Sodium Chloride 110 ml @ 220 mls/hr Q6HR IVPB 07/31/20 13:00 08/07/20 12:59 08/06/20 05:23 Chlorhexidine Gluconate (Gwendolyn-Hex 2%) 1 applic DAILY@2000 TOPIC 07/30/20 20:00 10/28/20 19:59 08/05/20 20:33 Clonidine HCl (Catapres Tab) 0.1 mg Q4H PRN ORAL For High Blood Pressure 07/28/20 21:15 10/26/20 21:14 Dextrose (Dextrose 50%) 25 ml Q30M PRN IV Hypoglycemia 08/02/20 12:45 10/31/20 12:44 Dextrose (Dextrose 50%) 50 ml Q30M PRN IV Hypoglycemia 08/02/20 12:45 10/31/20 12:44 Insulin Aspart (NovoLOG) per nurse, pt now on g-t... Q6HR SUBQ 08/02/20 12:00 10/31/20 11:59 08/06/20 05:23 Levetiracetam 100 ml @ 400 mls/hr Q12HR IVPB 07/28/20 21:15 10/26/20 21:14 08/06/20 09:41 Lorazepam (Ativan 2mg/ml 1ml) 1 mg Q3H PRN IV For Anxiety 08/02/20 15:15 08/09/20 15:14 08/02/20 15:31 Magnesium Hydroxide (Mom) 30 ml DAILYPRN PRN GT Constipation 08/05/20 21:45 09/04/20 21:44 08/05/20 22:06 Pantoprazole (Protonix) 40 mg DAILY IVP 07/29/20 09:00 08/28/20 08:59 08/06/20 09:40 Rosalinda Guerrero MD Aug 06, 2020 11:33
[2020-08-06 12:00] VITALS: BP 157/77
--- NOTE | 2020-08-06 12:10 | NUR ---
NURSE NOTES:Patient back on the floor from imaging study.
--- NOTE | 2020-08-06 12:20 | NUR ---
NURSE NOTES:Patient given bed bath and linens changed as patient had BM.
--- NOTE | 2020-08-06 12:30 | NUR ---
NURSE NOTES:New Gtube feeding hung and lines changed.
--- NOTE | 2020-08-06 13:28 | Diagnostic Imaging Report ---
. Indication: Reason For Exam: DVT Technique: Grayscale and duplex images of the bilateral lower extremity veins Comparison: 07/29/2020 Findings: Bilaterally, grayscale and duplex images demonstrate no evidence of intraluminal thrombus. Normal phasic Doppler waveforms, demonstrating normal augmentation response and no evidence of valvular insufficiency. Greater saphenous vein(s) and tibial veins are patent. Normal compressibility. No significant change Impression: Negative for evidence of lower extremity deep venous thrombosis bilaterally
--- NOTE | 2020-08-06 13:59 | Surgery Progress Note ---
Surgery Progress Note Subjective Additional Comments leukocytosis resolving no n/v labs noted cxr reviewed trach stable lots of secretions Objective Last 24 Hour Vital Signs Date Time Temp Pulse Resp B/P (MAP) Pulse Ox O2 Delivery O2 Flow Rate FiO2 08/06/20 12:00 45 08/06/20 12:00 Mechanical Ventilator 08/06/20 12:00 98.2 88 22 157/77 (103) 96 08/06/20 12:00 77 08/06/20 11:15 102 24 40 08/06/20 08:00 98.5 99 20 154/80 (104) 100 08/06/20 08:00 87 08/06/20 08:00 Mechanical Ventilator 08/06/20 08:00 45 08/06/20 07:10 70 30 50 08/06/20 04:01 102 08/06/20 04:00 50 08/06/20 04:00 98.8 98 20 144/90 (108) 98 08/06/20 04:00 Mechanical Ventilator 08/06/20 02:50 72 31 50 08/06/20 00:00 50 08/06/20 00:00 99.1 82 20 143/86 (105) 91 08/06/20 00:00 Mechanical Ventilator 08/06/20 00:00 107 08/05/20 23:10 98 26 40 08/05/20 20:05 90 08/05/20 20:00 50 08/05/20 20:00 Mechanical Ventilator 08/05/20 20:00 99.4 82 20 141/80 (100) 100 08/05/20 19:50 111 31 50 08/05/20 16:30 87 08/05/20 16:00 50 08/05/20 16:00 98.5 95 20 144/72 (96) 96 08/05/20 16:00 Mechanical Ventilator 08/05/20 15:01 104 29 50 I&O Intake and Output 08/05/20 08/06/20 19:00 07:00 Intake Total 280 ml 596 ml Output Total 525 ml 1400 ml Balance -245 ml -804 ml Free Water 40 ml 40 ml IV Total 316 ml Tube Feeding 240 ml 240 ml Output Urine Total 525 ml 1400 ml Dressing: saturated Cardiovascular: RSR Respiratory: decreased breath sounds Abdomen: soft, non-tender, present bowel sounds Extremities: no tenderness, no cyanosis Laboratory Tests Test 08/06/20 00:20 08/06/20 05:19 08/06/20 08:05 08/06/20 12:37 POC Whole Blood Glucose 210 MG/DL (74-106) H 210 MG/DL (74-106) H 214 MG/DL (74-106) H White Blood Count 10.8 K/UL (4.8-10.8) Red Blood Count 3.59 M/UL (4.70-6.10) L Hemoglobin 9.9 G/DL (14.2-18.0) L Hematocrit 31.4 % (42.0-52.0) L Mean Corpuscular Volume 87 FL (80-99) Mean Corpuscular Hemoglobin 27.5 PG (27.0-31.0) Mean Corpuscular Hemoglobin Concent 31.5 G/DL (32.0-36.0) L Red Cell Distribution Width 18.8 % (11.6-14.8) H Platelet Count 342 K/UL (150-450) Mean Platelet Volume 7.1 FL (6.5-10.1) Neutrophils (%) (Auto) 70.3 % (45.0-75.0) Lymphocytes (%) (Auto) 18.9 % (20.0-45.0) L Monocytes (%) (Auto) 5.2 % (1.0-10.0) Eosinophils (%) (Auto) 4.8 % (0.0-3.0) H Basophils (%) (Auto) 0.9 % (0.0-2.0) Sodium Level 146 MMOL/L (136-145) H Potassium Level 3.7 MMOL/L (3.5-5.1) Chloride Level 110 MMOL/L (98-107) H Carbon Dioxide Level 33 MMOL/L (21-32) H Anion Gap 3 mmol/L (5-15) L Blood Urea Nitrogen 12 mg/dL (7-18) Creatinine 1.0 MG/DL (0.55-1.30) Estimat Glomerular Filtration Rate > 60 mL/min (>60) Glucose Level 253 MG/DL (74-106) H Calcium Level 7.6 MG/DL (8.5-10.1) L Total Bilirubin 0.4 MG/DL (0.2-1.0) Aspartate Amino Transf (AST/SGOT) 18 U/L (15-37) Alanine Aminotransferase (ALT/SGPT) 8 U/L (12-78) L Alkaline Phosphatase 83 U/L (46-116) Total Protein 8.3 G/DL (6.4-8.2) H Albumin 1.5 G/DL (3.4-5.0) L Globulin 6.8 g/dL Albumin/Globulin Ratio 0.2 (1.0-2.7) L Plan Problems: (1) Sepsis Assessment & Plan: 75M. cxr with possible free air. ct done and noted. abd distended. exam limited leukocytosis abnormal labs improving with fluids trach malfunction now improved on vent support cont current care will monitor and follow with recs PICC line trend labs transfuse prbc prn trach leak needs trach change trach changed cxr noted infiltrates labs improving d/c planning cont abx as per ID ABDOMEN: Liver: Unremarkable. Gallbladder and bile ducts: Unremarkable. No calcified stones. Pancreas: Unremarkable. Spleen: Unremarkable. Adrenals: Unremarkable. Kidneys and ureters: Unremarkable. No hydronephrosis. Stomach and bowel: Mildly thickened sigmoid colon which may be underdistention, chronic, colitis, versus lesion. Colonic air-distention which may be ileus. No bowel obstruction or diverticulitis. PELVIS: Appendix: No findings to suggest acute appendicitis. Bladder: Thickened bladder which may be chronic, cystitis, versus lesion. Vera catheter in the bladder. Reproductive: Unremarkable as visualized. ABDOMEN and PELVIS: Intraperitoneal space: No free air. Bones/joints: No acute fracture. Soft tissues: Unremarkable. Vasculature: Unremarkable. Lymph nodes: Unremarkable. Tubes, lines and devices: Gastrostomy tube in the stomach. IMPRESSION: 1. Mildly thickened sigmoid colon which may be underdistention, chronic, colitis, versus lesion. Colonic air-distention which may be ileus. No bowel obstruction or diverticulitis. 2. Thickened bladder which may be chronic, cystitis, versus lesion. 3. Bibasilar infiltrates. Small left pleural effusion. (2) Pneumonia (3) Free intraperitoneal air Assessment & Plan: Apparent lucency underlying the right hemidiaphragm. This may potentially be artifactual. Recommend correlation with CT of the abdomen to exclude the possibility of free peritoneal air, particularly if there is a history of abdominal pain. Extensive interstitial and alveolar infiltrates concerning for multifocal pneumonia. Possibility of underlying chronic interstitial/chronic lung disease and scarring can also be considered. Indwelling tracheostomy tube. (4) Perforated abdominal viscus Assessment & Plan: CT reviewed no free air artifact on cxr abd distended cannot tell tender given condition will monitor (5) Decubitus skin ulcer (6) Hyperglycemia (7) Leukocytosis (8) GIB (gastrointestinal bleeding) (9) POPPY (acute kidney injury) (10) Dyspnea (11) Respiratory distress Assessment & Plan: trach changed 6f shiley stable now Abdoul Lucas Aug 06, 2020 13:59
--- NOTE | 2020-08-06 15:40 | NUR ---
NURSE NOTES:Patient desatting to 86% notified RT who titrated FI02 up to 60% patient now saturating at 100%.
[2020-08-06 16:00] VITALS: BP 164/82
--- NOTE | 2020-08-06 16:10 | Diagnostic Imaging Report ---
Clinical Indication: Shortness of breath Technique: Spiral acquisitions obtained through the chest. No IV contrast utilized, reason not stated. Multiplanar reconstructions generated. Total dose length product 569 mGycm. CTDIvol(s) 13 mGy. Dose reduction achieved using automated exposure control Comparison: none Findings: There is a tracheostomy which appears appropriately positioned. There are bilateral moderate to large pleural effusions. There is extensive parenchymal disease involving the right upper lobe and right lower lobe. Some of this has a possible honeycomb appearance, versus intralobular septal thickening in areas of air-trapping. There are other areas of denser consolidation noted. A calcified granuloma is seen in the superior segment of the right lower lobe. Dense consolidation is seen involving much of the left upper lobe. There is considerable volume loss of the left lower lobe, partly due to cardiomegaly and probably due to the pleural effusions. The heart is mildly enlarged. There is no pericardial effusion. The main pulmonary artery is dilated, measuring 4 cm in diameter. Calcified granulomatous lymph nodes are seen in the right pulmonary hilum and subcarinal region. No mediastinal or hilar mass or adenopathy is demonstrated. No axillary or chest wall mass or adenopathy. There is unilateral gynecomastia on the left. There is a right arm PICC, tip in the mid superior vena cava. There is some edema of the left chest wall and upper abdominal wall. The included upper abdominal viscera demonstrate a gastrostomy tube in place. Impression: Bilateral moderate to large pleural effusions Extensive bilateral parenchymal disease. This may indicate pulmonary edema, bilateral pneumonia, and there may be a significant chronic component as well Evidence of old granulomatous disease within the right lung and hilar and mediastinal lymph nodes Cardiomegaly Dilated main pulmonary artery, likely indicative of pulmonary arterial hypertension Left gynecomastia. PIC The CT scanner at [facility] is accredited by the [employer] and the scans are performed using protocols designed to limit radiation exposure to as low as reasonably achievable to attain images of sufficient resolution adequate for diagnostic evaluation.
--- NOTE | 2020-08-06 19:28 | NUR ---
NURSE HAND-OFF REPORT: Important Events on Shift: Patient Status: stable Diet: Osmolyte 1.5@ 20ML/HR Pending Orders: Pending Results/Labs: Pending MD notification: Latest Vital Signs: Temperature 98.3 , Pulse 89 , B/P 164 /82 , Respiratory Rate 25 , O2 SAT 99 , Mechanical Ventilator, O2 Flow Rate . Vital Sign Comment: EKG Rhythm: Sinus Tachycardia Rhythm change?: N MD Notified?: - MD Response: Latest Ackerman Fall Score: 70 Fall Risk: High Risk Safety Measures: Call light Within Reach, Bed Alarm Zone 1, Side Rails Side Rails x3, Bed position Low and Locked. Fall Precautions: Yellow Socks Yellow Gown Door Sign Report given to MANNY Zapata.
[2020-08-06 20:00] VITALS: BP 166/82
--- NOTE | 2020-08-06 20:00 | NUR ---
NURSE NOTES: Patient received awake and resting in bed, patient is obtunded and does not track or seem to follow verbal commands. Patient is on trach to vent with settings: Shiley 6 AC 16, TV 500, FI02 60% and Peep of 5 tolerating well with saturation of 98%. Patient is placed on seizure, aspiration and contact precautions for HX of ESBL, MRSA and VRE and seizure precautions, side rails are padded and bed in the low and locked position with call ligth on bed. Patient has wor[place]ton patent and draining to gravity, R upper PICC is running prescribed fluids. 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 Wound issues noted. Will follow plan or care.
[2020-08-06] MEDS: Dyna-Hex 2% Top Sol 2oz TOPIC SCH (20:16)
[2020-08-07] VITALS (7 sets, daily range): BP systolic 128–143; BP diastolic 71–81
--- NOTE | 2020-08-07 | NUR ---
NURSE NOTES: Patient given oral care and was repositioned, tapering FiO2 to maintain SpO2 above 94%. Currently FiO2 is at 40% with SpO2 at 95%, patient tolerating well. Accucheck noted to be 252, insulin coverage given. Patient remains afebrile at this time, ROM performed. NAD noted. Patient suctioned. Will continue to monitor.
[2020-08-07] MEDS: Unasyn 3gm in NS 110ml IVPB SCH ×5 (00:05→23:34)
[2020-08-07] MEDS: NovoLOG Insulin Flexpen SUBQ SCH ×5 (00:06→23:37)
--- NOTE | 2020-08-07 01:50 | Cardiology Progress Note ---
Subjective DATE OF SERVICE: Jul 31, 2020 On vent support S/P 2 units of PRBC's Monitor: sinus with occ PAC's CXR: (07/29) extensive bilateral infiltrates c/w ARDS Objective 122/59 64 22 Afebrile ROS: unchanged HEENT: Thin Trach secretions, other - protruding tongue RHYTHM: NSR, PACs LUNGS: left-sided rhonchi CARDIAC: normal rate, regular rhythm, normal S1 and S2 ABDOMEN: normal bowel sounds, non tender, soft, no organomegaly, G-Tube intact EXTREMITIES: normal range of motion, no calf tenderness, trace edema WBC 13.5 Hb 9.7 Assessment/Plan Assessment/Plan Sepsis Respiratory failure Chronic encephalopathy Paroxysmal atrial ectopy Anemia - s/p 2 units PRBC's Dehydration/hypernatremia Hypokalemia Severe protein/calorie malnutrition Hypomagnesemia HC assoc PNA CHF, ac/chr diastolic Titrate beta toni Antimicrobials Anti-sz medx Vent support Protein suppl Continue free water by IV route Diuresis based on volume status; trend BNP. Stool OB; monitor hemoglobin DVT prophyl Sea Madison MD Aug 07, 2020 01:50
--- NOTE | 2020-08-07 01:57 | Cardiology Progress Note ---
Subjective DATE OF SERVICE: Aug 06, 2020 On vent support Tolerates feeding without residuals Monitor: sinus with occ PAC's Objective Last 24 Hour Vital Signs Date Time Temp Pulse Resp B/P (MAP) Pulse Ox O2 Delivery O2 Flow Rate FiO2 08/07/20 00:00 84 08/07/20 00:00 Mechanical Ventilator 08/06/20 22:55 70 22 40 08/06/20 20:00 50 08/06/20 20:00 Mechanical Ventilator 08/06/20 20:00 74 08/06/20 20:00 99.1 95 20 166/82 (110) 98 08/06/20 19:17 89 25 40 08/06/20 17:37 164/82 08/06/20 16:00 98.3 110 17 164/82 (109) 99 08/06/20 16:00 103 08/06/20 15:52 60 08/06/20 15:51 Mechanical Ventilator 08/06/20 15:15 88 28 40 08/06/20 12:00 45 08/06/20 12:00 Mechanical Ventilator 08/06/20 12:00 98.2 88 22 157/77 (103) 96 08/06/20 12:00 77 08/06/20 11:15 102 24 40 08/06/20 08:00 98.5 99 20 154/80 (104) 100 08/06/20 08:00 87 08/06/20 08:00 Mechanical Ventilator 08/06/20 08:00 45 08/06/20 07:10 70 30 50 08/06/20 04:01 102 08/06/20 04:00 50 08/06/20 04:00 98.8 98 20 144/90 (108) 98 08/06/20 04:00 Mechanical Ventilator 08/06/20 02:50 72 31 50 ROS: unchanged HEENT: Thin Trach secretions, other - protruding tongue RHYTHM: NSR, PACs LUNGS: left-sided rhonchi CARDIAC: normal rate, regular rhythm, normal S1 and S2 ABDOMEN: normal bowel sounds, non tender, soft, no organomegaly, G-Tube intact EXTREMITIES: normal range of motion, no calf tenderness, trace edema Laboratory Tests Test 08/06/20 05:19 08/06/20 08:05 08/06/20 12:37 08/06/20 17:29 POC Whole Blood Glucose 210 MG/DL (74-106) H 214 MG/DL (74-106) H 213 MG/DL (74-106) H White Blood Count 10.8 K/UL (4.8-10.8) Red Blood Count 3.59 M/UL (4.70-6.10) L Hemoglobin 9.9 G/DL (14.2-18.0) L Hematocrit 31.4 % (42.0-52.0) L Mean Corpuscular Volume 87 FL (80-99) Mean Corpuscular Hemoglobin 27.5 PG (27.0-31.0) Mean Corpuscular Hemoglobin Concent 31.5 G/DL (32.0-36.0) L Red Cell Distribution Width 18.8 % (11.6-14.8) H Platelet Count 342 K/UL (150-450) Mean Platelet Volume 7.1 FL (6.5-10.1) Neutrophils (%) (Auto) 70.3 % (45.0-75.0) Lymphocytes (%) (Auto) 18.9 % (20.0-45.0) L Monocytes (%) (Auto) 5.2 % (1.0-10.0) Eosinophils (%) (Auto) 4.8 % (0.0-3.0) H Basophils (%) (Auto) 0.9 % (0.0-2.0) Sodium Level 146 MMOL/L (136-145) H Potassium Level 3.7 MMOL/L (3.5-5.1) Chloride Level 110 MMOL/L (98-107) H Carbon Dioxide Level 33 MMOL/L (21-32) H Anion Gap 3 mmol/L (5-15) L Blood Urea Nitrogen 12 mg/dL (7-18) Creatinine 1.0 MG/DL (0.55-1.30) Estimat Glomerular Filtration Rate > 60 mL/min (>60) Glucose Level 253 MG/DL (74-106) H Calcium Level 7.6 MG/DL (8.5-10.1) L Total Bilirubin 0.4 MG/DL (0.2-1.0) Aspartate Amino Transf (AST/SGOT) 18 U/L (15-37) Alanine Aminotransferase (ALT/SGPT) 8 U/L (12-78) L Alkaline Phosphatase 83 U/L (46-116) Total Protein 8.3 G/DL (6.4-8.2) H Albumin 1.5 G/DL (3.4-5.0) L Globulin 6.8 g/dL Albumin/Globulin Ratio 0.2 (1.0-2.7) L Test 08/07/20 00:04 POC Whole Blood Glucose Pending Assessment/Plan Assessment/Plan Sepsis Respiratory failure Chronic encephalopathy Paroxysmal atrial ectopy Anemia - s/p 2 units PRBC's Dehydration/hypernatremia Hypokalemia Severe protein/calorie malnutrition Hypomagnesemia HC assoc PNA CHF, ac/chr diastolic Titrate beta toni Antimicrobials Anti-sz medx Vent support Protein suppl Continue free water by IV route DVT prophyl Sea Madison MD Aug 07, 2020 01:57
--- NOTE | 2020-08-07 04:00 | NUR ---
NURSE NOTES: Patient given sponge and and oral care performed. Wound care dressings performed. Patient has been abled to taper fio2 down to 35% with saturations at 96%. Blood drawn and sent to lab. Remains afebrile.
--- NOTE | 2020-08-07 07:04 | NUR ---
HAND-OFF: Report given to Migue Wheeler RN.
--- NOTE | 2020-08-07 07:14 | NUR ---
NURSE NOTES: Received report from MANNY Gonzales. Patient is resting in bed, in stable condition. No s/sx of SOB, breathing is even and unlabored, on vent settings as ordered. Patient is nonverbal, observed no presence of pain or discomfort at this time. Bed is in lowest position, brakes engaged. Call light is kept within easy reach. Will continue to monitor patient.
[2020-08-07 08:00] LABS: ANION GAP 5 mmol/L (5-15); BLOOD UREA NITROGEN 13 mg/dL (7-18); CALCIUM 7.6 MG/DL (8.5-10.1); CARBON DIOXIDE 31 MMOL/L (21-32); CHLORIDE 110 MMOL/L (98-107); CREATININE 1.1 MG/DL (0.55-1.30); POTASSIUM 3.5 MMOL/L (3.5-5.1); SODIUM 146 MMOL/L (136-145)
[2020-08-07] MEDS: levETIRAcetam 1,000mg/NS100ml 100 ML IVPB SCH ×2 (08:05→20:00)
[2020-08-07] MEDS: Pantoprazole Inj IVP SCH (08:05)
--- NOTE | 2020-08-07 11:55 | Pulmonology Progress Note ---
Subjective ROS Limited/Unobtainable: Yes Constitutional: Denies: fever Allergies: Coded Allergies: No Known Allergies (Unverified , 07/04/18) All Systems: reviewed and negative except above Objective Last 24 Hour Vital Signs Date Time Temp Pulse Resp B/P (MAP) Pulse Ox O2 Delivery O2 Flow Rate FiO2 08/07/20 08:00 84 08/07/20 08:00 97.9 69 20 137/81 (99) 93 08/07/20 08:00 Mechanical Ventilator 08/07/20 08:00 35 08/07/20 07:13 64 24 35 08/07/20 04:00 Mechanical Ventilator 08/07/20 04:00 97.9 75 24 143/73 (96) 93 08/07/20 04:00 94 08/07/20 04:00 35 08/07/20 03:34 77 24 35 08/07/20 00:00 84 08/07/20 00:00 40 08/07/20 00:00 99.4 95 26 143/73 (96) 94 08/07/20 00:00 Mechanical Ventilator 08/06/20 22:55 70 22 40 08/06/20 20:00 50 08/06/20 20:00 Mechanical Ventilator 08/06/20 20:00 74 08/06/20 20:00 99.1 95 20 166/82 (110) 98 08/06/20 19:17 89 25 40 08/06/20 17:37 164/82 08/06/20 16:00 98.3 110 17 164/82 (109) 99 08/06/20 16:00 103 08/06/20 15:52 60 08/06/20 15:51 Mechanical Ventilator 08/06/20 15:15 88 28 40 08/06/20 12:00 45 08/06/20 12:00 Mechanical Ventilator 08/06/20 12:00 98.2 88 22 157/77 (103) 96 08/06/20 12:00 77 Intake and Output 08/06/20 08/07/20 19:00 07:00 Intake Total 460 ml 990 ml Output Total 1800 ml Balance 460 ml -810 ml Free Water 240 ml 300 ml IV Total 430 ml Tube Feeding 220 ml 260 ml Output Urine Total 1800 ml # Bowel Movements 1 Laboratory Tests 08/06/20 12:37: POC Whole Blood Glucose 214H 08/06/20 17:29: POC Whole Blood Glucose 213H 08/07/20 00:04: POC Whole Blood Glucose [Pending] 08/07/20 05:38: POC Whole Blood Glucose [Pending] 08/07/20 06:00: Sodium Level 146H, Potassium Level 3.5, Chloride Level 110H, Carbon Dioxide Level 31, Anion Gap 5, Blood Urea Nitrogen 13, Creatinine 1.1, Estimat Glomerular Filtration Rate > 60, Glucose Level 186H, Calcium Level 7.6L Current Medications Medications (Trade) Dose Ordered Sig/Derrick Route PRN Reason Start Time Stop Time Status Last Admin Dose Admin Acetaminophen (Tylenol) 650 mg Q4H PRN RECTAL Mild Pain (Pain Scale 1-3) 07/28/20 21:15 08/27/20 21:14 08/03/20 21:11 Acetaminophen (Tylenol) 650 mg Q6H PRN GT Temp >100.5 08/02/20 12:45 09/01/20 12:44 08/02/20 21:08 Ampicillin Sodium/ Sulbactam Sodium 3 gm/Sodium Chloride 110 ml @ 220 mls/hr Q6HR IVPB 07/31/20 13:00 08/10/20 12:59 08/07/20 05:59 Chlorhexidine Gluconate (Gwendolyn-Hex 2%) 1 applic DAILY@2000 TOPIC 07/30/20 20:00 10/28/20 19:59 08/06/20 20:16 Clonidine HCl (Catapres Tab) 0.1 mg Q4H PRN ORAL For High Blood Pressure 07/28/20 21:15 10/26/20 21:14 08/06/20 17:37 Dextrose (Dextrose 50%) 25 ml Q30M PRN IV Hypoglycemia 08/02/20 12:45 10/31/20 12:44 Dextrose (Dextrose 50%) 50 ml Q30M PRN IV Hypoglycemia 08/02/20 12:45 10/31/20 12:44 Insulin Aspart (NovoLOG) per nurse, pt now on g-t... Q6HR SUBQ 08/02/20 12:00 10/31/20 11:59 08/07/20 06:06 Levetiracetam 100 ml @ 400 mls/hr Q12HR IVPB 07/28/20 21:15 10/26/20 21:14 08/07/20 08:05 Lorazepam (Ativan 2mg/ml 1ml) 1 mg Q3H PRN IV For Anxiety 08/02/20 15:15 08/09/20 15:14 08/02/20 15:31 Magnesium Hydroxide (Mom) 30 ml DAILYPRN PRN GT Constipation 08/05/20 21:45 09/04/20 21:44 08/05/20 22:06 Pantoprazole (Protonix) 40 mg DAILY IVP 07/29/20 09:00 08/28/20 08:59 08/07/20 08:05 Assessment/Plan Assessment/Plan Progress Note Assessment/Plan Assessment/Plan IMPRESSION: probable sepsis, hyponatremia, acute renal failure, chronic respiratory failure, thickened colon diffuse pneumonia, elevated lactic dehydrogenase, abdominal distention, severe protein-calorie malnutrition, seizure disorder. 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 HEENT: Negative. Tracheostomy midline. The patient is with chronic tongue protrusion. LUNGS: Coarse breath sounds. moderate breath sounds CARDIAC: S1, S2. Regular rate and rhythm. ABDOMEN: Distended. Poor bowel sounds. EXTREMITIES: No cyanosis or clubbing. There is mild edema. NEUROLOGIC: Poorly responsive to pain. Sea Nieto MD Aug 07, 2020 11:55
--- NOTE | 2020-08-07 12:46 | General Progress Note ---
Subjective ROS Limited/Unobtainable: No Constitutional: Reports: malaise, weakness HEENT: Reports: no symptoms Cardiovascular: Reports: no symptoms Respiratory: Reports: cough, shortness of breath Gastrointestinal/Abdominal: Reports: difficulty swallowing Genitourinary: Reports: no symptoms Neurologic/Psychiatric: Reports: pre-existing deficit, seizure Endocrine: Reports: no symptoms Hematologic/Lymphatic: Reports: no symptoms Allergies: Coded Allergies: No Known Allergies (Unverified , 07/04/18) All Systems: reviewed and negative except above Subjective no events. stable on the vent. on iv abx. CT noted- bárbara pleural effusions and infiltrates. labs stable. no fevers. tolerating feeds. Objective Last 24 Hour Vital Signs Date Time Temp Pulse Resp B/P (MAP) Pulse Ox O2 Delivery O2 Flow Rate FiO2 08/07/20 11:57 99.2 98 20 131/71 (91) 94 08/07/20 11:08 62 22 35 08/07/20 08:00 84 08/07/20 08:00 97.9 69 20 137/81 (99) 93 08/07/20 08:00 Mechanical Ventilator 08/07/20 08:00 35 08/07/20 07:13 64 24 35 08/07/20 04:00 Mechanical Ventilator 08/07/20 04:00 97.9 75 24 143/73 (96) 93 08/07/20 04:00 94 08/07/20 04:00 35 08/07/20 03:34 77 24 35 08/07/20 00:00 84 08/07/20 00:00 40 08/07/20 00:00 99.4 95 26 143/73 (96) 94 08/07/20 00:00 Mechanical Ventilator 08/06/20 22:55 70 22 40 08/06/20 20:00 50 08/06/20 20:00 Mechanical Ventilator 08/06/20 20:00 74 08/06/20 20:00 99.1 95 20 166/82 (110) 98 08/06/20 19:17 89 25 40 08/06/20 17:37 164/82 08/06/20 16:00 98.3 110 17 164/82 (109) 99 08/06/20 16:00 103 08/06/20 15:52 60 08/06/20 15:51 Mechanical Ventilator 08/06/20 15:15 88 28 40 Intake and Output 08/06/20 08/07/20 19:00 07:00 Intake Total 460 ml 990 ml Output Total 1800 ml Balance 460 ml -810 ml Free Water 240 ml 300 ml IV Total 430 ml Tube Feeding 220 ml 260 ml Output Urine Total 1800 ml # Bowel Movements 1 Laboratory Tests 08/06/20 17:29: POC Whole Blood Glucose 213H 08/07/20 00:04: POC Whole Blood Glucose [Pending] 08/07/20 05:38: POC Whole Blood Glucose [Pending] 08/07/20 06:00: Sodium Level 146H, Potassium Level 3.5, Chloride Level 110H, Carbon Dioxide Level 31, Anion Gap 5, Blood Urea Nitrogen 13, Creatinine 1.1, Estimat Glomerular Filtration Rate > 60, Glucose Level 186H, Calcium Level 7.6L 08/07/20 12:02: POC Whole Blood Glucose 218H Height (Feet): 5 Height (Inches): 11.00 Weight (Pounds): 180 Objective General Appearance: WD/WN, lethargic, confused EENT: PERRL/EOMI Neck: non-tender, normal alignment Cardiovascular: normal peripheral pulses, normal rate Respiratory/Chest: chest wall non-tender, lungs clear, normal breath sounds, no respiratory distress Abdomen: normal bowel sounds, non tender, soft, no organomegaly Extremities: normal range of motion Neurologic: disoriented, unresponsive, aphasia Skin: normal pigmentation Assessment/Plan Problem List: (1) Sepsis ICD Codes: A41.9 - Sepsis, unspecified organism SNOMED: 03528019 (2) Pneumonia ICD Codes: J18.9 - Pneumonia, unspecified organism SNOMED: 103105604 (3) Leukocytosis ICD Codes: D72.829 - Elevated white blood cell count, unspecified SNOMED: 952948939, 750048831 (4) POPPY (acute kidney injury) ICD Codes: N17.9 - Acute kidney failure, unspecified SNOMED: 9642673, 42306432 (5) Dyspnea ICD Codes: R06.00 - Dyspnea, unspecified SNOMED: 910288133 (6) Respiratory distress ICD Codes: R06.03 - Acute respiratory distress SNOMED: 390057876 Status: stable, not improved Assessment/Plan: tube feeds. 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
[2020-08-07] MEDS ORDERED: Tubing IV Secondary IV ONE ×2 (13:25→22:16)
[2020-08-07] MEDS ORDERED: NS 500ML ONE (13:25)
[2020-08-07] MEDS ORDERED: NS 275ml ONE ×2 (13:25→22:16)
[2020-08-07] MEDS ORDERED: D5NS 1000ml IV ONE (13:25)
--- NOTE | 2020-08-07 14:42 | Surgery Progress Note ---
Surgery Progress Note Subjective Symptoms: improved, tolerating diet, passing flatus Objective Last 24 Hour Vital Signs Date Time Temp Pulse Resp B/P (MAP) Pulse Ox O2 Delivery O2 Flow Rate FiO2 08/07/20 12:00 35 08/07/20 12:00 81 08/07/20 12:00 Mechanical Ventilator 08/07/20 11:57 99.2 98 20 131/71 (91) 94 08/07/20 11:08 62 22 35 08/07/20 08:00 84 08/07/20 08:00 97.9 69 20 137/81 (99) 93 08/07/20 08:00 Mechanical Ventilator 08/07/20 08:00 35 08/07/20 07:13 64 24 35 08/07/20 04:00 Mechanical Ventilator 08/07/20 04:00 97.9 75 24 143/73 (96) 93 08/07/20 04:00 94 08/07/20 04:00 35 08/07/20 03:34 77 24 35 08/07/20 00:00 84 08/07/20 00:00 40 08/07/20 00:00 99.4 95 26 143/73 (96) 94 08/07/20 00:00 Mechanical Ventilator 08/06/20 22:55 70 22 40 08/06/20 20:00 50 08/06/20 20:00 Mechanical Ventilator 08/06/20 20:00 74 08/06/20 20:00 99.1 95 20 166/82 (110) 98 08/06/20 19:17 89 25 40 08/06/20 17:37 164/82 08/06/20 16:00 98.3 110 17 164/82 (109) 99 08/06/20 16:00 103 08/06/20 15:52 60 08/06/20 15:51 Mechanical Ventilator 08/06/20 15:15 88 28 40 I&O Intake and Output 08/06/20 08/07/20 19:00 07:00 Intake Total 460 ml 990 ml Output Total 1800 ml Balance 460 ml -810 ml Free Water 240 ml 300 ml IV Total 430 ml Tube Feeding 220 ml 260 ml Output Urine Total 1800 ml # Bowel Movements 1 Dressing: saturated Cardiovascular: RSR Respiratory: decreased breath sounds Abdomen: non-tender, present bowel sounds Extremities: no edema, no tenderness, no cyanosis Laboratory Tests Test 08/06/20 17:29 08/07/20 00:04 08/07/20 05:38 08/07/20 06:00 POC Whole Blood Glucose 213 MG/DL (74-106) H Pending Pending Sodium Level 146 MMOL/L (136-145) H Potassium Level 3.5 MMOL/L (3.5-5.1) Chloride Level 110 MMOL/L (98-107) H Carbon Dioxide Level 31 MMOL/L (21-32) Anion Gap 5 mmol/L (5-15) Blood Urea Nitrogen 13 mg/dL (7-18) Creatinine 1.1 MG/DL (0.55-1.30) Estimat Glomerular Filtration Rate > 60 mL/min (>60) Glucose Level 186 MG/DL (74-106) H Calcium Level 7.6 MG/DL (8.5-10.1) L Test 08/07/20 12:02 POC Whole Blood Glucose 218 MG/DL (74-106) H Plan Problems: (1) Sepsis Assessment & Plan: 75M. cxr with possible free air. ct done and noted. abd distended. exam limited leukocytosis abnormal labs improving with fluids trach malfunction now improved on vent support cont current care will monitor and follow with recs PICC line trend labs transfuse prbc prn trach leak needs trach change trach changed cxr noted infiltrates labs improving d/c planning cont abx as per ID ABDOMEN: Liver: Unremarkable. Gallbladder and bile ducts: Unremarkable. No calcified stones. Pancreas: Unremarkable. Spleen: Unremarkable. Adrenals: Unremarkable. Kidneys and ureters: Unremarkable. No hydronephrosis. Stomach and bowel: Mildly thickened sigmoid colon which may be underdistention, chronic, colitis, versus lesion. Colonic air-distention which may be ileus. No bowel obstruction or diverticulitis. PELVIS: Appendix: No findings to suggest acute appendicitis. Bladder: Thickened bladder which may be chronic, cystitis, versus lesion. Vera catheter in the bladder. Reproductive: Unremarkable as visualized. ABDOMEN and PELVIS: Intraperitoneal space: No free air. Bones/joints: No acute fracture. Soft tissues: Unremarkable. Vasculature: Unremarkable. Lymph nodes: Unremarkable. Tubes, lines and devices: Gastrostomy tube in the stomach. IMPRESSION: 1. Mildly thickened sigmoid colon which may be underdistention, chronic, colitis, versus lesion. Colonic air-distention which may be ileus. No bowel obstruction or diverticulitis. 2. Thickened bladder which may be chronic, cystitis, versus lesion. 3. Bibasilar infiltrates. Small left pleural effusion. There is a tracheostomy which appears appropriately positioned. There are bilateral moderate to large pleural effusions. There is extensive parenchymal d isease involving the right upper lobe and right lower lobe. Some of this has a possible honeycomb appearance, versus intralobular septal thickening in areas of air- trapping. There are other areas of denser consolidation noted. A calcified granuloma is seen in the superior segment of the right lower lobe. Dense consolidation is seen involving much of the left upper lobe. There is considerable volume loss of the left lower lobe, partly due to cardiomegaly and probably due to the pleural effusions. The heart is mildly enlarged. There is no pericardial effusion. The main pulmonary artery is dilated, measuring 4 cm in diameter. Calcified granulomatous lymph nodes are seen in the right pulmonary hilum and subcarinal region. No mediastinal or hilar mass or adenopathy is demonstrated. No axillary or chest wall mass or adenopathy. There is unilateral gynecomastia on the left. There is a right arm PICC, tip in the mid superior vena cava. There is some edema of the left chest wall and upper abdominal wall. The included upper abdominal viscera demonstrate a gastrostomy tube in place. Impression: Bilateral moderate to large pleural effusions Extensive bilateral parenchymal disease. This may indicate pulmonary edema, bilateral pneumonia, and there may be a significant chronic component as well Evidence of old granulomatous disease within the right lung and hilar and mediastinal lymph nodes Cardiomegaly Dilated main pulmonary artery, likely indicative of pulmonary arterial hypertension (2) Pneumonia (3) Free intraperitoneal air Assessment & Plan: Apparent lucency underlying the right hemidiaphragm. This may potentially be artifactual. Recommend correlation with CT of the abdomen to exclude the possibility of free peritoneal air, particularly if there is a history of abdominal pain. Extensive interstitial and alveolar infiltrates concerning for multifocal pneumonia. Possibility of underlying chronic interstitial/chronic lung disease and scarring can also be considered. Indwelling tracheostomy tube. (4) Perforated abdominal viscus Assessment & Plan: CT reviewed no free air artifact on cxr abd distended cannot tell tender given condition will monitor (5) Decubitus skin ulcer (6) Hyperglycemia (7) Leukocytosis (8) GIB (gastrointestinal bleeding) (9) POPPY (acute kidney injury) (10) Dyspnea (11) Respiratory distress Assessment & Plan: trach changed 6f mark stable now Abdoul Lucas Aug 07, 2020 14:42
--- NOTE | 2020-08-07 16:38 | Infectious Diseases Prog Note ---
Assessment/Plan Assessment/Plan A 1. Acinetobacter pneumonia COVID 19 negative 2. Ventilator dependent respiratory failure 3. colitis 4. UTI 5. Diabetes mellitus 6. Hypertension 7. COPD P 1. Continue Unasyn X 2 days 2. Negative stool for c.difficile 3. will follow up cultures Subjective ROS Limited/Unobtainable: Yes Constitutional: Denies: fever Allergies: Coded Allergies: No Known Allergies (Unverified , 07/04/18) Objective Last 24 Hour Vital Signs Date Time Temp Pulse Resp B/P (MAP) Pulse Ox O2 Delivery O2 Flow Rate FiO2 08/07/20 15:27 90 25 35 08/07/20 12:00 35 08/07/20 12:00 81 08/07/20 12:00 Mechanical Ventilator 08/07/20 11:57 99.2 98 20 131/71 (91) 94 08/07/20 11:08 62 22 35 08/07/20 08:00 84 08/07/20 08:00 97.9 69 20 137/81 (99) 93 08/07/20 08:00 Mechanical Ventilator 08/07/20 08:00 35 08/07/20 07:13 64 24 35 08/07/20 04:00 Mechanical Ventilator 08/07/20 04:00 97.9 75 24 143/73 (96) 93 08/07/20 04:00 94 08/07/20 04:00 35 08/07/20 03:34 77 24 35 08/07/20 00:00 84 08/07/20 00:00 40 08/07/20 00:00 99.4 95 26 143/73 (96) 94 08/07/20 00:00 Mechanical Ventilator 08/06/20 22:55 70 22 40 08/06/20 20:00 50 08/06/20 20:00 Mechanical Ventilator 08/06/20 20:00 74 08/06/20 20:00 99.1 95 20 166/82 (110) 98 08/06/20 19:17 89 25 40 08/06/20 17:37 164/82 Height (Feet): 5 Height (Inches): 11.00 Weight (Pounds): 180 HEENT: status post trach Respiratory/Chest: rhonchi - bilaterally, other - on ventilator Cardiovascular: normal rate, other - R arm PICC line Abdomen: other - GTfeeding Extremities: other - edema Neurologic/Psychiatric: aphasia, other - constant tongue movement Laboratory Tests Test 08/06/20 17:29 08/07/20 00:04 08/07/20 05:38 08/07/20 06:00 POC Whole Blood Glucose 213 MG/DL (74-106) H Pending Pending Sodium Level 146 MMOL/L (136-145) H Potassium Level 3.5 MMOL/L (3.5-5.1) Chloride Level 110 MMOL/L (98-107) H Carbon Dioxide Level 31 MMOL/L (21-32) Anion Gap 5 mmol/L (5-15) Blood Urea Nitrogen 13 mg/dL (7-18) Creatinine 1.1 MG/DL (0.55-1.30) Estimat Glomerular Filtration Rate > 60 mL/min (>60) Glucose Level 186 MG/DL (74-106) H Calcium Level 7.6 MG/DL (8.5-10.1) L Test 08/07/20 12:02 POC Whole Blood Glucose 218 MG/DL (74-106) H Current Medications Medications (Trade) Dose Ordered Sig/Derrick Route PRN Reason Start Time Stop Time Status Last Admin Dose Admin Acetaminophen (Tylenol) 650 mg Q4H PRN RECTAL Mild Pain (Pain Scale 1-3) 07/28/20 21:15 08/27/20 21:14 08/03/20 21:11 Acetaminophen (Tylenol) 650 mg Q6H PRN GT Temp >100.5 08/02/20 12:45 09/01/20 12:44 08/02/20 21:08 Ampicillin Sodium/ Sulbactam Sodium 3 gm/Sodium Chloride 110 ml @ 220 mls/hr Q6HR IVPB 07/31/20 13:00 08/10/20 12:59 08/07/20 12:12 Chlorhexidine Gluconate (Gwendolyn-Hex 2%) 1 applic DAILY@2000 TOPIC 07/30/20 20:00 10/28/20 19:59 08/06/20 20:16 Clonidine HCl (Catapres Tab) 0.1 mg Q4H PRN ORAL For High Blood Pressure 07/28/20 21:15 10/26/20 21:14 08/06/20 17:37 Dextrose (Dextrose 50%) 25 ml Q30M PRN IV Hypoglycemia 08/02/20 12:45 10/31/20 12:44 Dextrose (Dextrose 50%) 50 ml Q30M PRN IV Hypoglycemia 08/02/20 12:45 10/31/20 12:44 Insulin Aspart (NovoLOG) per nurse, pt now on g-t... Q6HR SUBQ 08/02/20 12:00 10/31/20 11:59 08/07/20 12:13 Levetiracetam 100 ml @ 400 mls/hr Q12HR IVPB 07/28/20 21:15 10/26/20 21:14 08/07/20 08:05 Lorazepam (Ativan 2mg/ml 1ml) 1 mg Q3H PRN IV For Anxiety 08/02/20 15:15 08/09/20 15:14 08/02/20 15:31 Magnesium Hydroxide (Mom) 30 ml DAILYPRN PRN GT Constipation 08/05/20 21:45 09/04/20 21:44 08/05/20 22:06 Pantoprazole (Protonix) 40 mg DAILY IVP 07/29/20 09:00 08/28/20 08:59 08/07/20 08:05 Carlos Amaro MD Aug 07, 2020 16:38
--- NOTE | 2020-08-07 19:09 | NUR ---
NURSE NOTES: received report from MANNY Camarena, pt. in bed obtunded, no signs or symptoms of acute distress noted, bed alarm on, side rails up x's3 and safety brakes engaged, bed alarm on, safety brakes engaged, pt. appears to be tolerating current vent settings well- AC 16, TV 500, Fio2 at 35% and peep 5- no distress noted, pt. has G tube running Osmolite at 20cc/hr- no residual noted, pt. appears clean and dry, Vera intact and draining to gravity, repositioned and turned pt., aspiration and skin precautions observed, ZOE PICC running TKO- safety measures continued, will continue with plan of care. Addendum: 08/07/20 at 1946 by GENEVA ALEX RN RN side rails padded for seizure precautions- no seizure activity noted upon assessment.
--- NOTE | 2020-08-07 19:16 | NUR ---
NURSE HAND-OFF REPORT: Important Events on Shift: Patient Status: Stable Diet: Osmolite 1.5 20 ml/hr Pending Orders: None Pending Results/Labs:None Pending MD notification:None Latest Vital Signs: Temperature 98.2 , Pulse 73 , B/P 138 /81 , Respiratory Rate 23 , O2 SAT 96 , Mechanical Ventilator, O2 Flow Rate . Vital Sign Comment: Stable EKG Rhythm: Sinus Rhythm Rhythm change?: N MD Notified?: - MD Response: Latest Ackerman Fall Score: 70 Fall Risk: High Risk Safety Measures: Call light Within Reach, Bed Alarm Zone 1, Side Rails Side Rails x3, Bed position Low and Locked. Fall Precautions: Yellow Socks Yellow Gown Door Sign Report given to MANNY Bower.
[2020-08-07] MEDS: Dyna-Hex 2% Top Sol 2oz TOPIC SCH (19:58)
--- NOTE | 2020-08-07 20:24 | NUR ---
HAND-OFF: Report given to Teresita Rn, pt. remains stable- no distress noted.
--- NOTE | 2020-08-07 20:25 | NUR ---
NURSE NOTES: Received patient from Cheli BRYANT . No respiratory distress noted with current vent settings-AC 16 TV500 Fio2 35% PEEP 5, O2 sat 97-98%. no s/s of pain at this time. Tolerating GTF well with running Osmolite 1.5 at 20 cc/hr . no residual. Keep HOB elevated. F/C in place draining well to gravity.will continue plan of care.
--- NOTE | 2020-08-08 01:00 | NUR ---
NURSE NOTES: sponge bath with CHG given. no acute distress noted. SR on the monitor. vs stable. Afebrile.
--- NOTE | 2020-08-08 02:01 | Cardiology Progress Note ---
Subjective DATE OF SERVICE: Aug 07, 2020 On vent support Tolerates feeding without residuals Monitor: sinus with occ PAC's CXR: bilateral infiltrates and effusions Objective Last 24 Hour Vital Signs Date Time Temp Pulse Resp B/P (MAP) Pulse Ox O2 Delivery O2 Flow Rate FiO2 08/08/20 00:00 35 08/08/20 00:00 72 08/07/20 23:59 Mechanical Ventilator 08/07/20 23:53 97.9 71 24 128/75 (92) 97 08/07/20 22:38 75 22 35 08/07/20 20:00 97.3 66 20 137/76 (96) 97 08/07/20 20:00 Mechanical Ventilator 08/07/20 20:00 35 08/07/20 20:00 71 08/07/20 19:14 73 23 35 08/07/20 16:00 Mechanical Ventilator 08/07/20 16:00 98.2 70 20 138/81 (100) 96 08/07/20 16:00 35 08/07/20 16:00 70 08/07/20 15:27 90 25 35 08/07/20 12:00 35 08/07/20 12:00 81 08/07/20 12:00 Mechanical Ventilator 08/07/20 11:57 99.2 98 20 131/71 (91) 94 08/07/20 11:08 62 22 35 08/07/20 08:00 84 08/07/20 08:00 97.9 69 20 137/81 (99) 93 08/07/20 08:00 Mechanical Ventilator 08/07/20 08:00 35 08/07/20 07:13 64 24 35 08/07/20 04:00 Mechanical Ventilator 08/07/20 04:00 97.9 75 24 143/73 (96) 93 08/07/20 04:00 94 08/07/20 04:00 35 08/07/20 03:34 77 24 35 ROS: unchanged HEENT: Thin Trach secretions, other - protruding tongue RHYTHM: NSR, PACs LUNGS: left-sided rhonchi CARDIAC: normal rate, regular rhythm, normal S1 and S2 ABDOMEN: normal bowel sounds, non tender, soft, no organomegaly, G-Tube intact EXTREMITIES: normal range of motion, no calf tenderness, trace edema Laboratory Tests Test 08/07/20 05:38 08/07/20 06:00 08/07/20 12:02 08/07/20 17:01 POC Whole Blood Glucose Pending 218 MG/DL (74-106) H 207 MG/DL (74-106) H Sodium Level 146 MMOL/L (136-145) H Potassium Level 3.5 MMOL/L (3.5-5.1) Chloride Level 110 MMOL/L (98-107) H Carbon Dioxide Level 31 MMOL/L (21-32) Anion Gap 5 mmol/L (5-15) Blood Urea Nitrogen 13 mg/dL (7-18) Creatinine 1.1 MG/DL (0.55-1.30) Estimat Glomerular Filtration Rate > 60 mL/min (>60) Glucose Level 186 MG/DL (74-106) H Calcium Level 7.6 MG/DL (8.5-10.1) L Test 08/07/20 23:32 POC Whole Blood Glucose 229 MG/DL (74-106) H Assessment/Plan Assessment/Plan Sepsis Respiratory failure Chronic encephalopathy Paroxysmal atrial ectopy Anemia - s/p 2 units PRBC's Dehydration/hypernatremia Hypokalemia Severe protein/calorie malnutrition Hypomagnesemia HC assoc PNA CHF, ac/chr diastolic Pleural effusions Titrate beta toni Antimicrobials Anti-sz medx Vent support Protein suppl Continue free water by IV route; diuresis once free water deficit corrected. DVT prophyl [place] MD Aug 08, 2020 02:01
--- NOTE | 2020-08-08 03:30 | NUR ---
NURSE NOTES: Turned and repositioned. vss. Afebrile. o2 sat 97-100%.no s/s of pain.suctioned with white thick secretions via trach and mouth. oral care done.
[2020-08-08 04:00] VITALS: BP 135/72
[2020-08-08] MEDS: Unasyn 3gm in NS 110ml IVPB SCH ×3 (05:33→17:40)
[2020-08-08] MEDS: NovoLOG Insulin Flexpen SUBQ SCH ×3 (05:47→17:42)
[2020-08-08 06:55] LABS: ANION GAP 4 mmol/L (5-15); BLOOD UREA NITROGEN 11 mg/dL (7-18); CALCIUM 7.4 MG/DL (8.5-10.1); CARBON DIOXIDE 30 MMOL/L (21-32); CHLORIDE 108 MMOL/L (98-107); CREATININE 1.1 MG/DL (0.55-1.30); POTASSIUM 3.4 MMOL/L (3.5-5.1); SODIUM 142 MMOL/L (136-145)
--- NOTE | 2020-08-08 07:30 | NUR ---
NURSE HAND-OFF REPORT: Important Events on Shift:N Patient Status: table Diet:GTF with Osmolite 1.5 at 20cc/hr without residual Pending Orders: N Pending Results/Labs:N Pending MD notification:N Latest Vital Signs: Temperature 97.9 , Pulse 74 , B/P 135 /72 , Respiratory Rate 22 , O2 SAT 98 , Mechanical Ventilator, O2 Flow Rate . Vital Sign Comment: EKG Rhythm: Sinus Rhythm Rhythm change?: N MD Notified?: - MD Response: Latest Ackerman Fall Score: 70 Fall Risk: High Risk Safety Measures: Call light Within Reach, Bed Alarm Zone 1, Side Rails Side Rails x3, Bed position Low and Locked. Fall Precautions: Yellow Socks Yellow Gown Door Sign Report given to Rocio Koch RN.
--- NOTE | 2020-08-08 07:35 | NUR ---
NURSE NOTES: Report received from Teresita Gaston RN.Pt asleep noted no resp distress with trach tube to vent,ordered vent settings tolerated,GTF Osmolite 1.5 at 20 ml/hr,no residual noted,Vera cath draining yellow urine,skin warm and dry with pressure ulcer to Lt buttock,,IV site to ZOE PICC line intact,,SR up x2 HOB elevated bed locked in lowest position,will continue with plans of care.
[2020-08-08 08:00] VITALS: BP 132/74
[2020-08-08] MEDS: levETIRAcetam 1,000mg/NS100ml 100 ML IVPB SCH ×2 (08:39→21:15)
[2020-08-08] MEDS: Pantoprazole Inj IVP SCH (08:39)
--- NOTE | 2020-08-08 10:00 | NUR ---
NURSE NOTES: Oral care done,oral/tracheal secretions suctioned ,pt with large amount of oral secretions,pt turned and repositioned .
--- NOTE | 2020-08-08 11:30 | General Progress Note ---
Subjective ROS Limited/Unobtainable: No Constitutional: Reports: malaise, weakness HEENT: Reports: no symptoms Cardiovascular: Reports: edema Respiratory: Reports: cough, shortness of breath Gastrointestinal/Abdominal: Reports: difficulty swallowing Genitourinary: Reports: no symptoms Neurologic/Psychiatric: Reports: pre-existing deficit, seizure Endocrine: Reports: no symptoms Hematologic/Lymphatic: Reports: anemia Allergies: Coded Allergies: No Known Allergies (Unverified , 07/04/18) All Systems: reviewed and negative except above Subjective no events. stable on the vent. on iv abx. CT noted- bárbara pleural effusions and infiltrates. labs stable. no fevers. tolerating feeds. seems more congested Objective Last 24 Hour Vital Signs Date Time Temp Pulse Resp B/P (MAP) Pulse Ox O2 Delivery O2 Flow Rate FiO2 08/08/20 08:00 73 08/08/20 08:00 35 08/08/20 08:00 99.1 88 20 132/74 (93) 99 08/08/20 08:00 Mechanical Ventilator 08/08/20 07:00 74 22 35 08/08/20 04:00 Mechanical Ventilator 08/08/20 04:00 71 08/08/20 04:00 35 08/08/20 04:00 97.9 86 22 135/72 (93) 98 08/08/20 03:29 73 24 35 08/08/20 00:00 35 08/08/20 00:00 72 08/07/20 23:59 Mechanical Ventilator 08/07/20 23:53 97.9 71 24 128/75 (92) 97 08/07/20 22:38 75 22 35 08/07/20 20:00 97.3 66 20 137/76 (96) 97 08/07/20 20:00 Mechanical Ventilator 08/07/20 20:00 35 08/07/20 20:00 71 08/07/20 19:14 73 23 35 08/07/20 16:00 Mechanical Ventilator 08/07/20 16:00 98.2 70 20 138/81 (100) 96 08/07/20 16:00 35 08/07/20 16:00 70 08/07/20 15:27 90 25 35 08/07/20 12:00 35 08/07/20 12:00 81 08/07/20 12:00 Mechanical Ventilator 08/07/20 11:57 99.2 98 20 131/71 (91) 94 Intake and Output 0 08/07/20 08/08/20 19:00 07:00 Intake Total 730 ml 660 ml Output Total 900 ml 600 ml Balance -170 ml 60 ml Free Water 300 ml 200 ml IV Total 210 ml 220 ml Tube Feeding 220 ml 240 ml Output Urine Total 900 ml 600 ml # Bowel Movements 1 1 Laboratory Tests 08/07/20 12:02: POC Whole Blood Glucose 218H 08/07/20 17:01: POC Whole Blood Glucose 207H 08/07/20 23:32: POC Whole Blood Glucose 229H 08/08/20 05:20: Sodium Level 142, Potassium Level 3.4L, Chloride Level 108H, Carbon Dioxide Level 30, Anion Gap 4L, Blood Urea Nitrogen 11, Creatinine 1.1, Estimat Glomerular Filtration Rate > 60, Glucose Level 243H, Calcium Level 7.4L, Magnesium Level 1.9 08/08/20 05:22: POC Whole Blood Glucose 233H Height (Feet): 5 Height (Inches): 11.00 Weight (Pounds): 180 Objective General Appearance: WD/WN, lethargic, confused EENT: PERRL/EOMI Neck: non-tender, normal alignment Cardiovascular: normal peripheral pulses, normal rate Respiratory/Chest: chest wall non-tender, lungs clear, normal breath sounds, no respiratory distress Abdomen: normal bowel sounds, non tender, soft, no organomegaly Extremities: normal range of motion Neurologic: disoriented, unresponsive, aphasia Skin: normal pigmentation Assessment/Plan Problem List: (1) Sepsis ICD Codes: A41.9 - Sepsis, unspecified organism SNOMED: 06334628 (2) Pneumonia ICD Codes: J18.9 - Pneumonia, unspecified organism SNOMED: 411845854 (3) Leukocytosis ICD Codes: D72.829 - Elevated white blood cell count, unspecified SNOMED: 108553225, 216207499 (4) POPPY (acute kidney injury) ICD Codes: N17.9 - Acute kidney failure, unspecified SNOMED: 8664245, 59344825 (5) Dyspnea ICD Codes: R06.00 - Dyspnea, unspecified SNOMED: 942474187 (6) Respiratory distress ICD Codes: R06.03 - Acute respiratory distress SNOMED: 247636018 Status: stable, not improved Assessment/Plan: tube feeds. 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
[2020-08-08] MEDS: Acetaminophen 650mg/20.3ml GT PRN (11:46)
[2020-08-08 12:00] VITALS: BP 130/64
--- NOTE | 2020-08-08 12:00 | NUR ---
NURSE NOTES: Pt febrile T100.4 ax,given Tylenol 650 mg per GT ,cold compress applied to forehead and bilat armpits.will continue to monitor pt's temp.
--- NOTE | 2020-08-08 14:45 | Surgery Progress Note ---
Surgery Progress Note Subjective Symptoms: improved, tolerating diet, passing flatus Objective Last 24 Hour Vital Signs Date Time Temp Pulse Resp B/P (MAP) Pulse Ox O2 Delivery O2 Flow Rate FiO2 08/08/20 12:30 99.0 08/08/20 12:16 99.0 08/08/20 12:00 100.4 86 20 130/64 (86) 99 08/08/20 12:00 Mechanical Ventilator 08/08/20 12:00 35 08/08/20 12:00 86 08/08/20 11:20 78 30 35 08/08/20 08:00 73 08/08/20 08:00 35 08/08/20 08:00 99.1 88 20 132/74 (93) 99 08/08/20 08:00 Mechanical Ventilator 08/08/20 07:00 74 22 35 08/08/20 04:00 Mechanical Ventilator 08/08/20 04:00 71 08/08/20 04:00 35 08/08/20 04:00 97.9 86 22 135/72 (93) 98 08/08/20 03:29 73 24 35 08/08/20 00:00 35 08/08/20 00:00 72 08/07/20 23:59 Mechanical Ventilator 08/07/20 23:53 97.9 71 24 128/75 (92) 97 08/07/20 22:38 75 22 35 08/07/20 20:00 97.3 66 20 137/76 (96) 97 08/07/20 20:00 Mechanical Ventilator 08/07/20 20:00 35 08/07/20 20:00 71 08/07/20 19:14 73 23 35 08/07/20 16:00 Mechanical Ventilator 08/07/20 16:00 98.2 70 20 138/81 (100) 96 08/07/20 16:00 35 08/07/20 16:00 70 08/07/20 15:27 90 25 35 I&O Intake and Output 08/07/20 08/08/20 19:00 07:00 Intake Total 730 ml 660 ml Output Total 900 ml 600 ml Balance -170 ml 60 ml Free Water 300 ml 200 ml IV Total 210 ml 220 ml Tube Feeding 220 ml 240 ml Output Urine Total 900 ml 600 ml # Bowel Movements 1 1 Cardiovascular: RSR Respiratory: decreased breath sounds Abdomen: soft, non-tender, present bowel sounds Extremities: no tenderness, no cyanosis Laboratory Tests Test 08/07/20 17:01 08/07/20 23:32 08/08/20 05:20 08/08/20 05:22 POC Whole Blood Glucose 207 MG/DL (74-106) H 229 MG/DL (74-106) H 233 MG/DL (74-106) H Sodium Level 142 MMOL/L (136-145) Potassium Level 3.4 MMOL/L (3.5-5.1) L Chloride Level 108 MMOL/L (98-107) H Carbon Dioxide Level 30 MMOL/L (21-32) Anion Gap 4 mmol/L (5-15) L Blood Urea Nitrogen 11 mg/dL (7-18) Creatinine 1.1 MG/DL (0.55-1.30) Estimat Glomerular Filtration Rate > 60 mL/min (>60) Glucose Level 243 MG/DL (74-106) H Calcium Level 7.4 MG/DL (8.5-10.1) L Magnesium Level 1.9 MG/DL (1.8-2.4) Test 08/08/20 11:41 POC Whole Blood Glucose Pending Plan Problems: (1) Sepsis Assessment & Plan: 75M. cxr with possible free air. ct done and noted. abd distended. exam limited leukocytosis abnormal labs improving with fluids trach malfunction now improved on vent support cont current care will monitor and follow with recs PICC line trend labs transfuse prbc prn trach leak needs trach change trach changed cxr noted infiltrates labs improving d/c planning cont abx as per ID ABDOMEN: Liver: Unremarkable. Gallbladder and bile ducts: Unremarkable. No calcified stones. Pancreas: Unremarkable. Spleen: Unremarkable. Adrenals: Unremarkable. Kidneys and ureters: Unremarkable. No hydronephrosis. Stomach and bowel: Mildly thickened sigmoid colon which may be underdistention, chronic, colitis, versus lesion. Colonic air-distention which may be ileus. No bowel obstruction or diverticulitis. PELVIS: Appendix: No findings to suggest acute appendicitis. Bladder: Thickened bladder which may be chronic, cystitis, versus lesion. Vera catheter in the bladder. Reproductive: Unremarkable as visualized. ABDOMEN and PELVIS: Intraperitoneal space: No free air. Bones/joints: No acute fracture. Soft tissues: Unremarkable. Vasculature: Unremarkable. Lymph nodes: Unremarkable. Tubes, lines and devices: Gastrostomy tube in the stomach. IMPRESSION: 1. Mildly thickened sigmoid colon which may be underdistention, chronic, colitis, versus lesion. Colonic air-distention which may be ileus. No bowel obstruction or diverticulitis. 2. Thickened bladder which may be chronic, cystitis, versus lesion. 3. Bibasilar infiltrates. Small left pleural effusion. There is a tracheostomy which appears appropriately positioned. There are bilateral moderate to large pleural effusions. There is extensive parenchymal disease involving the right upper lobe and right lower lobe. Some of this has a possible honeycomb appearance, versus intralobular septal thickening in areas of air- trapping. There are other areas of denser consolidation noted. A calcified granuloma is seen in the superior segment of the right lower lobe. Dense consolidation is seen i nvolving much of the left upper lobe. There is considerable volume loss of the left lower lobe, partly due to cardiomegaly and probably due to the pleural effusions. The heart is mildly enlarged. There is no pericardial effusion. The main pulmonary artery is dilated, measuring 4 cm in diameter. Calcified granulomatous lymph nodes are seen in the right pulmonary hilum and subcarinal region. No mediastinal or hilar mass or adenopathy is demonstrated. No axillary or chest wall mass or adenopathy. There is unilateral gynecomastia on the left. There is a right arm PICC, tip in the mid superior vena cava. There is some edema of the left chest wall and upper abdominal wall. The included upper abdominal viscera demonstrate a gastrostomy tube in place. Impression: Bilateral moderate to large pleural effusions Extensive bilateral parenchymal disease. This may indicate pulmonary edema, bilateral pneumonia, and there may be a significant chronic component as well Evidence of old granulomatous disease within the right lung and hilar and mediastinal lymph nodes Cardiomegaly Dilated main pulmonary artery, likely indicative of pulmonary arterial hypertension (2) Pneumonia (3) Free intraperitoneal air Assessment & Plan: Apparent lucency underlying the right hemidiaphragm. This may potentially be artifactual. Recommend correlation with CT of the abdomen to exclude the possibility of free peritoneal air, particularly if there is a history of abdominal pain. Extensive interstitial and alveolar infiltrates concerning for multifocal pneumonia. Possibility of underlying chronic interstitial/chronic lung disease and scarring can also be considered. Indwelling tracheostomy tube. (4) Perforated abdominal viscus Assessment & Plan: CT reviewed no free air artifact on cxr abd distended cannot tell tender given condition will monitor (5) Decubitus skin ulcer (6) Hyperglycemia (7) Leukocytosis (8) GIB (gastrointestinal bleeding) (9) POPPY (acute kidney injury) (10) Dyspnea (11) Respiratory distress Assessment & Plan: trach changed 6f mark stable now Abdoul Lucas Aug 08, 2020 14:45
--- NOTE | 2020-08-08 15:00 | NUR ---
NURSE NOTES: Pt stable no resp distress presented during the shift ,pt's fever down to T99.0.
--- NOTE | 2020-08-08 15:33 | Pulmonology Progress Note ---
Subjective ROS Limited/Unobtainable: No Constitutional: Denies: fever Allergies: Coded Allergies: No Known Allergies (Unverified , 07/04/18) All Systems: reviewed and negative except above Objective Last 24 Hour Vital Signs Date Time Temp Pulse Resp B/P (MAP) Pulse Ox O2 Delivery O2 Flow Rate FiO2 08/08/20 12:30 99.0 08/08/20 12:16 99.0 08/08/20 12:00 100.4 86 20 130/64 (86) 99 08/08/20 12:00 Mechanical Ventilator 08/08/20 12:00 35 08/08/20 12:00 86 08/08/20 11:20 78 30 35 08/08/20 08:00 73 08/08/20 08:00 35 08/08/20 08:00 99.1 88 20 132/74 (93) 99 08/08/20 08:00 Mechanical Ventilator 08/08/20 07:00 74 22 35 08/08/20 04:00 Mechanical Ventilator 08/08/20 04:00 71 08/08/20 04:00 35 08/08/20 04:00 97.9 86 22 135/72 (93) 98 08/08/20 03:29 73 24 35 08/08/20 00:00 35 08/08/20 00:00 72 08/07/20 23:59 Mechanical Ventilator 08/07/20 23:53 97.9 71 24 128/75 (92) 97 08/07/20 22:38 75 22 35 08/07/20 20:00 97.3 66 20 137/76 (96) 97 08/07/20 20:00 Mechanical Ventilator 08/07/20 20:00 35 08/07/20 20:00 71 08/07/20 19:14 73 23 35 08/07/20 16:00 Mechanical Ventilator 08/07/20 16:00 98.2 70 20 138/81 (100) 96 08/07/20 16:00 35 08/07/20 16:00 70 Intake and Output 08/07/20 08/08/20 19:00 07:00 Intake Total 730 ml 660 ml Output Total 900 ml 600 ml Balance -170 ml 60 ml Free Water 300 ml 200 ml IV Total 210 ml 220 ml Tube Feeding 220 ml 240 ml Output Urine Total 900 ml 600 ml # Bowel Movements 1 1 Laboratory Tests 08/07/20 17:01: POC Whole Blood Glucose 207H 08/07/20 23:32: POC Whole Blood Glucose 229H 08/08/20 05:20: Sodium Level 142, Potassium Level 3.4L, Chloride Level 108H, Carbon Dioxide Level 30, Anion Gap 4L, Blood Urea Nitrogen 11, Creatinine 1.1, Estimat Glomerular Filtration Rate > 60, Glucose Level 243H, Calcium Level 7.4L, Magnesium Level 1.9 08/08/20 05:22: POC Whole Blood Glucose 233H 08/08/20 11:41: POC Whole Blood Glucose [Pending] Current Medications Medications (Trade) Dose Ordered Sig/Derrick Route PRN Reason Start Time Stop Time Status Last Admin Dose Admin Acetaminophen (Tylenol) 650 mg Q4H PRN RECTAL Mild Pain (Pain Scale 1-3) 07/28/20 21:15 08/27/20 21:14 08/03/20 21:11 Acetaminophen (Tylenol) 650 mg Q6H PRN GT Temp >100.5 08/02/20 12:45 09/01/20 12:44 08/08/20 11:46 Ampicillin Sodium/ Sulbactam Sodium 3 gm/Sodium Chloride 110 ml @ 220 mls/hr Q6HR IVPB 07/31/20 13:00 08/10/20 12:59 08/08/20 11:51 Chlorhexidine Gluconate (Gwendolyn-Hex 2%) 1 applic DAILY@2000 TOPIC 07/30/20 20:00 10/28/20 19:59 08/07/20 19:58 Clonidine HCl (Catapres Tab) 0.1 mg Q4H PRN ORAL For High Blood Pressure 07/28/20 21:15 10/26/20 21:14 08/06/20 17:37 Dextrose (Dextrose 50%) 25 ml Q30M PRN IV Hypoglycemia 08/02/20 12:45 10/31/20 12:44 Dextrose (Dextrose 50%) 50 ml Q30M PRN IV Hypoglycemia 08/02/20 12:45 10/31/20 12:44 Furosemide (Lasix) 40 mg DAILY IV 08/08/20 11:30 09/07/20 11:29 08/08/20 11:51 Insulin Aspart (NovoLOG) per nurse, pt now on g-t... Q6HR SUBQ 08/02/20 12:00 10/31/20 11:59 08/08/20 11:53 Levetiracetam 100 ml @ 400 mls/hr Q12HR IVPB 07/28/20 21:15 10/26/20 21:14 08/08/20 08:39 Lorazepam (Ativan 2mg/ml 1ml) 1 mg Q3H PRN IV For Anxiety 08/02/20 15:15 08/09/20 15:14 08/02/20 15:31 Magnesium Hydroxide (Mom) 30 ml DAILYPRN PRN GT Constipation 08/05/20 21:45 09/04/20 21:44 08/05/20 22:06 Pantoprazole (Protonix) 40 mg DAILY IVP 07/29/20 09:00 08/28/20 08:59 08/08/20 08:39 Potassium Chloride (K-Dur) 40 meq ONCE ORAL 08/08/20 13:45 08/08/20 16:00 08/08/20 13:52 Assessment/Plan Assessment/Plan Progress Note Assessment/Plan Assessment/Plan IMPRESSION: probable sepsis, hyponatremia, acute renal failure, chronic respiratory failure, thickened colon diffuse pneumonia, elevated lactic dehydrogenase, abdominal distention, severe protein-calorie malnutrition, seizure disorder. pneumonia, anemia, diffuse pulmonary infiltrates PLAN venous US negative monitor blood sugars care noted/ monitor lytes- k supplemented today monitor acid base repeat CXR- ordered transfuse as needed IV antibiotics cultures noted respiratory care Ventilatory support SNF meds supportive care monitor for seizures advance feeds no wean at present oxygen therapy prognosis critical surgical follow up dc planning once stable taper oxygen impression, plan, and exam edited and reviewed in detail care discussed with RN Subjective Interval Events: remains ill on vent diffuse infiltrates noted ROS Limited/Unobtainable: Yes Condition: critical EKG Rhythm: Sinus Rhythm Residuals: minimal Tube Feeding Tolerated: yes Objective: Vital Signs noted Laboratory Tests noted Objective: GENERAL: An ill-appearing male, chronically ill. HEENT: Negative. Tracheostomy midline. The patient is with chronic tongue protrusion. LUNGS: Coarse breath sounds. moderate breath sounds CARDIAC: S1, S2. Regular rate and rhythm. ABDOMEN: Distended. Poor bowel sounds. EXTREMITIES: No cyanosis or clubbing. There is mild edema. NEUROLOGIC: Poorly responsive to pain. Sea Nieto MD Aug 08, 2020 15:33
[2020-08-08 16:00] VITALS: BP 129/67
--- NOTE | 2020-08-08 18:23 | NUR ---
NURSE NOTES: no change in pt's status,still with low grade fever T99.0,bed bath given,turned and repositioned.
--- NOTE | 2020-08-08 19:10 | NUR ---
NURSE HAND-OFF REPORT: Important Events on Shift:N/A Patient Status: stable Diet: N/A Pending Orders: N/A Pending Results/Labs:N/A Pending MD notification: Latest Vital Signs: Temperature 99.0 , Pulse 78 , B/P 129 /67 , Respiratory Rate 18 , O2 SAT 99 , Mechanical Ventilator, O2 Flow Rate . Vital Sign Comment: EKG Rhythm: Sinus Rhythm Rhythm change?: N MD Notified?: - MD Response: Latest Ackerman Fall Score: 70 Fall Risk: High Risk Safety Measures: Call light Within Reach, Bed Alarm Zone 1, Side Rails Side Rails x3, Bed position Low and Locked. Fall Precautions: Yellow Socks Yellow Gown Door Sign Report given to Teresita Gaston RN..
--- NOTE | 2020-08-08 19:20 | NUR ---
NURSE NOTES: Received patient from JAYLIN BRYANT . No respiratory distress noted with current vent settings-AC 16 TV500 Fio2 35% PEEP 5, O2 sat 97-100%. no s/s of pain at this time. Tolerating GTF well with running Osmolite 1.5 at 20 cc/hr without residual. Keep HOB elevated. F/C in place draining well to gravity.will continue plan of care.
[2020-08-08 20:00] VITALS: BP 134/68
[2020-08-08] MEDS ORDERED: Acetaminophen 650mg/20.3ml NG PRN (20:30)
[2020-08-08] MEDS: Dyna-Hex 2% Top Sol 2oz TOPIC SCH (21:14)
[2020-08-09] VITALS: BP 119/62
[2020-08-09] MEDS: Unasyn 3gm in NS 110ml IVPB SCH ×3 (00:13→12:09)
[2020-08-09] MEDS: NovoLOG Insulin Flexpen SUBQ SCH ×4 (00:14→17:47)
--- NOTE | 2020-08-09 00:30 | NUR ---
NURSE NOTES: Patient asleep in bed with no acute distress.Tolerating GTF well without residual. Keep HOB elevated.vss. Afebrile. SR on monitor.
--- NOTE | 2020-08-09 01:20 | Cardiology Progress Note ---
Subjective DATE OF SERVICE: Jul 29, 2020 On vent support Thick secretions Monitor: sinus tachycardia with occ PAC's CXR: bilateral infiltrates and effusions Objective 109/57 106 27 T 99.0 ROS: unchanged HEENT: Thin Trach secretions, other - protruding tongue RHYTHM: NSR, ST, PACs LUNGS: left-sided rhonchi CARDIAC: normal rate, regular rhythm, normal S1 and S2 ABDOMEN: normal bowel sounds, non tender, soft, no organomegaly, G-Tube intact EXTREMITIES: normal range of motion, no calf tenderness, trace edema Assessment/Plan Assessment/Plan Sepsis Possible perf viscous Respiratory failure Chronic encephalopathy Paroxysmal atrial ectopy Sinus tachycardia Anemia Dehydration/hypernatremia Hypokalemia Severe protein/calorie malnutrition Hypomagnesemia HC assoc PNA CHF, ac/chr diastolic Pleural effusions Surgical follow-up Add beta toni with stabilized BP. Antimicrobials Anti-sz medx Vent support Protein suppl Continue free water by IV route. DVT prophyl Sea Madison MD Aug 09, 2020 01:20
--- NOTE | 2020-08-09 01:25 | Cardiology Progress Note ---
Subjective DATE OF SERVICE: Aug 08, 2020 On vent support Increasingly congested Monitor: sinus tachycardia with occ PAC's CXR: bilateral infiltrates and effusions Objective Last 24 Hour Vital Signs Date Time Temp Pulse Resp B/P (MAP) Pulse Ox O2 Delivery O2 Flow Rate FiO2 08/09/20 00:00 98.6 69 27 119/62 (81) 98 08/09/20 00:00 72 08/09/20 00:00 35 08/08/20 23:25 Mechanical Ventilator 08/08/20 22:51 73 24 35 08/08/20 20:00 35 08/08/20 20:00 76 08/08/20 20:00 99.3 70 32 134/68 (90) 100 08/08/20 19:31 86 18 35 08/08/20 16:09 Mechanical Ventilator 08/08/20 16:05 35 08/08/20 16:00 99.0 79 18 129/67 (87) 99 08/08/20 16:00 78 08/08/20 15:14 93 26 35 08/08/20 12:30 99.0 08/08/20 12:16 99.0 08/08/20 12:00 100.4 86 20 130/64 (86) 99 08/08/20 12:00 Mechanical Ventilator 08/08/20 12:00 35 08/08/20 12:00 86 08/08/20 11:20 78 30 35 08/08/20 08:00 73 08/08/20 08:00 35 08/08/20 08:00 99.1 88 20 132/74 (93) 99 08/08/20 08:00 Mechanical Ventilator 08/08/20 07:00 74 22 35 08/08/20 04:00 Mechanical Ventilator 08/08/20 04:00 71 08/08/20 04:00 35 08/08/20 04:00 97.9 86 22 135/72 (93) 98 08/08/20 03:29 73 24 35 ROS: unchanged HEENT: Thin Trach secretions, other - protruding tongue RHYTHM: NSR, ST, PACs LUNGS: left-sided rhonchi CARDIAC: normal rate, regular rhythm, normal S1 and S2 ABDOMEN: normal bowel sounds, non tender, soft, no organomegaly, G-Tube intact EXTREMITIES: normal range of motion, no calf tenderness, trace edema Laboratory Tests Test 08/08/20 05:20 08/08/20 05:22 08/08/20 11:41 08/08/20 17:04 Sodium Level 142 MMOL/L (136-145) Potassium Level 3.4 MMOL/L (3.5-5.1) L Chloride Level 108 MMOL/L (98-107) H Carbon Dioxide Level 30 MMOL/L (21-32) Anion Gap 4 mmol/L (5-15) L Blood Urea Nitrogen 11 mg/dL (7-18) Creatinine 1.1 MG/DL (0.55-1.30) Estimat Glomerular Filtration Rate > 60 mL/min (>60) Glucose Level 243 MG/DL (74-106) H Calcium Level 7.4 MG/DL (8.5-10.1) L Magnesium Level 1.9 MG/DL (1.8-2.4) POC Whole Blood Glucose 233 MG/DL (74-106) H Pending 202 MG/DL (74-106) H Test 08/09/20 00:11 POC Whole Blood Glucose 234 MG/DL (74-106) H Assessment/Plan Assessment/Plan Sepsis Possible perf viscous Respiratory failure Chronic encephalopathy Paroxysmal atrial ectopy Sinus tachycardia Anemia Dehydration/hypernatremia Hypokalemia Severe protein/calorie malnutrition Hypomagnesemia HC assoc PNA CHF, ac/chr diastolic Pleural effusions Diuresis; trend BNP Titrate beta toni. Antimicrobials Anti-sz medx Vent support Protein suppl DVT prophyl Sea Madison MD Aug 09, 2020 01:25
--- NOTE | 2020-08-09 01:49 | NUR ---
NURSE NOTES: Turned and repositioned.No s/s of pain at this time.Suctioned with white thick secretions via trach and oral.oral care given.
--- NOTE | 2020-08-09 02:00 | Consultation ---
DATE OF CONSULTATION: 07/28/2020 CARDIOLOGY CONSULTATION CONSULTING PHYSICIAN: Sea Madison MD REQUESTING PHYSICIAN: Chano Galeana MD REASON FOR CONSULTATION: Evaluation for congestive heart failure in the setting of respiratory failure. HISTORY OF PRESENT ILLNESS: This is a 75-year-old ventilator-dependent patient, who resides at a subacute nursing facility. He was transferred to the emergency room with respiratory distress and hypoxia. He was noted in the emergency room to have an elevated natriuretic peptide assay as well as an abnormal chest radiograph that revealed bilateral infiltrates versus edema. Historical data is not obtainable from the patient and review of records was undertaken. PAST MEDICAL HISTORY: Chronic encephalopathy, cerebrovascular disease with history of cerebrovascular accident, seizure disorder, chronic liver disease with cirrhosis, chronic kidney disease, hypertension, and COPD. ALLERGIES: None. MEDICATIONS: Reviewed. FAMILY HISTORY: Noncontributory. SOCIAL HISTORY: Not obtainable. REVIEW OF SYSTEMS: Cannot be reliably obtained. PHYSICAL EXAMINATION: VITAL SIGNS: Blood pressure 114/71, heart rate 82, respiratory rate 20, and afebrile. HEAD AND NECK: Tracheostomy site with thin secretions. Tongue protruding. LUNGS: With coarse breath sounds and rhonchi. CARDIAC: Regular rhythm and rate. Normal S1, S2 with no appreciable murmur. ABDOMEN: Distended. G-tube is intact. EXTREMITIES: There is mild dependent edema. NEUROLOGIC: The patient is nonresponsive. LABORATORY AND DIAGNOSTIC DATA: ABG, pH 7.41, pCO2 of 41, and pO2 of 115. White count 12, hemoglobin 9. EKG, sinus rhythm, inferior infarction of indeterminate age. Sodium 123, potassium 5.1, chloride 90, bicarb 27, BUN 37, creatinine 1.3, glucose 134. Pro-natriuretic peptide 1294. Troponin is zero. Lactic acid 2. Imaging study revealed possible air under the diaphragm. IMPRESSION: Possible abdominal sepsis, chronic respiratory failure with trach, healthcare-associated pneumonia, acute diastolic congestive heart failure, acute kidney injury, hyponatremia, hypochloremia, severe protein-calorie malnutrition, and cerebrovascular disease with baseline encephalopathy. PLAN: Ventilator support. Antimicrobials. Address oxygen delivery. DVT prophylaxis. Hold diuresis. Monitor volume status and acid-base parameters closely. We will follow. Trend natriuretic peptide essay to assist with management. Sea Madison M.D. DR: Abigail JOB#: [id number] CC:
--- NOTE | 2020-08-09 03:00 | NUR ---
NURSE NOTES: Performed sponge bath using CHG.Had BM and changed sacral dressing.stable on current vent settings. o2 sat 96-99%. no s/s of pain .Tolerating GTF well. Keep HOB elevated.
[2020-08-09 04:00] VITALS: BP 136/72
[2020-08-09 05:42] LABS: BASOPHILS % (AUTO) 0.7 % (0.0-2.0); EOSINOPHILS % (AUTO) 7.5 % (0.0-3.0); HEMATOCRIT 26.7 % (42.0-52.0); MEAN CORPUSCULAR VOLUME 83 FL (80-99); MONOCYTES % (AUTO) 4.9 % (1.0-10.0); PLATELET COUNT 338 K/UL (150-450); RED BLOOD COUNT 3.22 M/UL (4.70-6.10); RED CELL DISTRIBUTION WIDTH 19.3 % (11.6-14.8); WHITE BLOOD COUNT 10.4 K/UL (4.8-10.8)
[2020-08-09 06:18] LABS: ALANINE AMINOTRANSFERASE 11 U/L (12-78); ALBUMIN 1.6 G/DL (3.4-5.0); ALBUMIN/GLOBULIN RATIO 0.2 (1.0-2.7); ALKALINE PHOSPHATASE 77 U/L (46-116); ANION GAP 4 mmol/L (5-15); ASPARTATE AMINO TRANSFERASE 26 U/L (15-37); BILIRUBIN,TOTAL 0.3 MG/DL (0.2-1.0); BLOOD UREA NITROGEN 12 mg/dL (7-18); CALCIUM 7.4 MG/DL (8.5-10.1); CARBON DIOXIDE 30 MMOL/L (21-32); CHLORIDE 108 MMOL/L (98-107); POTASSIUM 3.3 MMOL/L (3.5-5.1); SODIUM 142 MMOL/L (136-145)
--- NOTE | 2020-08-09 07:44 | NUR ---
NURSE HAND-OFF REPORT: Important Events on Shift:N Patient Status: stable Diet: GTF with Osmolite 1.5 at 20cc/hr without residual Pending Orders: n Pending Results/Labs:n Pending MD notification:n Latest Vital Signs: Temperature 98.1 , Pulse 90 , B/P 136 /72 , Respiratory Rate 30 , O2 SAT 98 , Mechanical Ventilator, O2 Flow Rate . Vital Sign Comment:stable EKG Rhythm: Sinus Rhythm Rhythm change?: N MD Notified?: - MD Response: Latest Ackerman Fall Score: 70 Fall Risk: High Risk Safety Measures: Call light Within Reach, Bed Alarm Zone 1, Side Rails Side Rails x3, Bed position Low and Locked. Fall Precautions: Yellow Socks Yellow Gown Door Sign Report given to Rocio Yoder RN.
--- NOTE | 2020-08-09 07:45 | NUR ---
NURSE NOTES: Report received from Teresita Gaston RN.Pt asleep ,afebrile,noted no resp distress,with trach tube to vent ,ordered vent settings tolerated, no signs of pain or discomfort,SR on the monitor,GTF Osmolite 1.5 at 20 ml/hr,no residual noted,Vera cath draining yellow urine,skin warm and dry IV site to ZOE PICC line intact,SR up x2 HOB elevated bed lock in lowest position will continue with plans of care..
[2020-08-09 08:00] VITALS: BP 143/71
--- NOTE | 2020-08-09 08:00 | NUR ---
NURSE NOTES: Dr Montanez at bedside updated re pt's status,K level 3.3 K supplement ordered.
[2020-08-09] MEDS: Pantoprazole Inj IVP SCH (08:45)
[2020-08-09] MEDS: levETIRAcetam 1,000mg/NS100ml 100 ML IVPB SCH ×2 (08:46→21:08)
--- NOTE | 2020-08-09 08:46 | Critical Care Progress Note ---
Assessment/Plan Assessment/Plan IMPRESSION: probable sepsis, hyponatremia, acute renal failure, chronic respiratory failure, thickened colon diffuse pneumonia, elevated lactic dehydrogenase, abdominal distention, severe protein-calorie malnutrition, seizure disorder. pneumonia, anemia, diffuse pulmonary infiltrates with bilateral pleural effusions, likely 3rd spacing PLAN tap monitor blood sugars care noted/ monitor lytes monitor acid base repeat CXR- after tap transfuse as needed IV antibiotics cultures noted respiratory care Ventilatory support SNF meds supportive care monitor for seizures advance feeds no wean planned oxygen therapy prognosis critical surgical follow up dc planning taper oxygen impression, plan, and exam edited and reviewed in detail care discussed with electronics manufacturer - Subjective Interval Events: CT chest reviewed low K on vent increased RR ROS Limited/Unobtainable: Yes Condition: critical EKG Rhythm: Sinus Rhythm Residuals: minimal Tube Feeding Tolerated: yes I&O: Intake and Output 08/08/20 08/09/20 19:00 07:00 Intake Total 620 ml 860 ml Output Total 1400 ml 500 ml Balance -780 ml 360 ml Free Water 200 ml 300 ml IV Total 320 ml Tube Feeding 240 ml 240 ml Other 180 ml Output Urine Total 1400 ml 500 ml # Bowel Movements 2 Critical Care - Objective Last 24 Hour Vital Signs Date Time Temp Pulse Resp B/P (MAP) Pulse Ox O2 Delivery O2 Flow Rate FiO2 08/09/20 04:00 90 08/09/20 04:00 35 08/09/20 04:00 98.1 65 30 136/72 (93) 98 08/09/20 04:00 Mechanical Ventilator 08/09/20 03:45 79 29 35 08/09/20 00:00 98.6 69 27 119/62 (81) 98 08/09/20 00:00 72 08/09/20 00:00 35 08/08/20 23:25 Mechanical Ventilator 08/08/20 22:51 73 24 35 08/08/20 20:00 35 08/08/20 20:00 76 08/08/20 20:00 99.3 70 32 134/68 (90) 100 08/08/20 19:31 86 18 35 08/08/20 16:09 Mechanical Ventilator 08/08/20 16:05 35 08/08/20 16:00 99.0 79 18 129/67 (87) 99 08/08/20 16:00 78 08/08/20 15:14 93 26 35 08/08/20 12:30 99.0 08/08/20 12:16 99.0 08/08/20 12:00 100.4 86 20 130/64 (86) 99 08/08/20 12:00 Mechanical Ventilator 08/08/20 12:00 35 08/08/20 12:00 86 08/08/20 11:20 78 30 35 Labs: Laboratory Tests 08/08/20 11:41: POC Whole Blood Glucose [Pending] 08/08/20 17:04: POC Whole Blood Glucose 202H 08/09/20 00:11: POC Whole Blood Glucose 234H 08/09/20 03:30: White Blood Count 10.4, Red Blood Count 3.22L, Hemoglobin 9.0L, Hematocrit 26.7L , Mean Corpuscular Volume 83, Mean Corpuscular Hemoglobin 27.9, Mean Corpuscular Hemoglobin Concent 33.7, Red Cell Distribution Width 19.3H, Platelet Count 338, Mean Platelet Volume 8.1, Neutrophils (%) (Auto) 63.0, Lymphocytes (%) (Auto) 24.0, Monocytes (%) (Auto) 4.9, Eosinophils (%) (Auto) 7.5H, Basophils (%) (Auto) 0.7, Sodium Level 142, Potassium Level 3.3L, Chloride Level 108H, Carbon Dioxide Level 30, Anion Gap 4L, Blood Urea Nitrogen 12, Creatinine 1.0, Estimat Glomerular Filtration Rate > 60, Glucose Level 192H, Calcium Level 7.4L, Magnesium Level 2.0, Total Bilirubin 0.3, Aspartate Amino Transf (AST/SGOT) 26, Alanine Aminotransferase (ALT/SGPT) 11L, Alkaline Phosphatase 77, Pro-B-Type Natriuretic Peptide 2194H, Total Protein 8.4H, Albumin 1.6L, Globulin 6.8, Albumin/Globulin Ratio 0.2L 08/09/20 05:27: POC Whole Blood Glucose 221H Objective: GENERAL: An ill-appearing male, chronically ill. HEENT: Negative. Tracheostomy midline. The patient is with chronic tongue protrusion. LUNGS: Coarse breath sounds. moderate breath sounds CARDIAC: S1, S2. Regular rate and rhythm. ABDOMEN: Distended. Poor bowel sounds. EXTREMITIES: No cyanosis or clubbing. There is mild edema. NEUROLOGIC: Poorly responsive to pain. Accucheck: 221 Bakari Montanez MD Aug 09, 2020 08:46
--- NOTE | 2020-08-09 10:00 | NUR ---
NURSE NOTES: Pt turned and repositioned,kept dry and clean,oral secretions suctioned frequently, noted with large amount of oral secretions.
--- NOTE | 2020-08-09 11:20 | Infectious Diseases Prog Note ---
Assessment/Plan Assessment/Plan antibiotics : unasyn 07.31.20 - A 1. acenitobacter pneumonia s/p rx COVID 19 negative 2. respiratory failure 3. colitis 4. UTI 5. diabetes mellitus 6. hypertension 7. COPD P 1. d/c unasyn 2. observe off antibiotics Subjective ROS Limited/Unobtainable: Yes Allergies: Coded Allergies: No Known Allergies (Unverified , 07/04/18) Objective Last 24 Hour Vital Signs Date Time Temp Pulse Resp B/P (MAP) Pulse Ox O2 Delivery O2 Flow Rate FiO2 08/09/20 08:00 82 08/09/20 08:00 35 08/09/20 08:00 Mechanical Ventilator 08/09/20 08:00 98.4 66 20 143/71 (95) 95 08/09/20 07:15 66 17 35 08/09/20 04:00 90 08/09/20 04:00 35 08/09/20 04:00 98.1 65 30 136/72 (93) 98 08/09/20 04:00 Mechanical Ventilator 08/09/20 03:45 79 29 35 08/09/20 00:00 98.6 69 27 119/62 (81) 98 08/09/20 00:00 72 08/09/20 00:00 35 08/08/20 23:25 Mechanical Ventilator 08/08/20 22:51 73 24 35 08/08/20 20:00 35 08/08/20 20:00 76 08/08/20 20:00 99.3 70 32 134/68 (90) 100 08/08/20 19:31 86 18 35 08/08/20 16:09 Mechanical Ventilator 08/08/20 16:05 35 08/08/20 16:00 99.0 79 18 129/67 (87) 99 08/08/20 16:00 78 08/08/20 15:14 93 26 35 08/08/20 12:30 99.0 08/08/20 12:16 99.0 08/08/20 12:00 100.4 86 20 130/64 (86) 99 08/08/20 12:00 Mechanical Ventilator 08/08/20 12:00 35 08/08/20 12:00 86 08/08/20 11:20 78 30 35 Height (Feet): 5 Height (Inches): 11.00 Weight (Pounds): 180 HEENT: status post trach Respiratory/Chest: lungs clear Cardiovascular: normal rate, regular rhythm, no gallop/murmur Abdomen: soft, non tender, other - GT Extremities: other - + edema, right arm PICC Laboratory Tests Test 08/08/20 11:41 08/08/20 17:04 08/09/20 00:11 08/09/20 03:30 POC Whole Blood Glucose Pending 202 MG/DL (74-106) H 234 MG/DL (74-106) H White Blood Count 10.4 K/UL (4.8-10.8) Red Blood Count 3.22 M/UL (4.70-6.10) L Hemoglobin 9.0 G/DL (14.2-18.0) L Hematocrit 26.7 % (42.0-52.0) L Mean Corpuscular Volume 83 FL (80-99) Mean Corpuscular Hemoglobin 27.9 PG (27.0-31.0) Mean Corpuscular Hemoglobin Concent 33.7 G/DL (32.0-36.0) Red Cell Distribution Width 19.3 % (11.6-14.8) H Platelet Count 338 K/UL (150-450) Mean Platelet Volume 8.1 FL (6.5-10.1) Neutrophils (%) (Auto) 63.0 % (45.0-75.0) Lymphocytes (%) (Auto) 24.0 % (20.0-45.0) Monocytes (%) (Auto) 4.9 % (1.0-10.0) Eosinophils (%) (Auto) 7.5 % (0.0-3.0) H Basophils (%) (Auto) 0.7 % (0.0-2.0) Sodium Level 142 MMOL/L (136-145) Potassium Level 3.3 MMOL/L (3.5-5.1) L Chloride Level 108 MMOL/L (98-107) H Carbon Dioxide Level 30 MMOL/L (21-32) Anion Gap 4 mmol/L (5-15) L Blood Urea Nitrogen 12 mg/dL (7-18) Creatinine 1.0 MG/DL (0.55-1.30) Estimat Glomerular Filtration Rate > 60 mL/min (>60) Glucose Level 192 MG/DL (74-106) H Calcium Level 7.4 MG/DL (8.5-10.1) L Magnesium Level 2.0 MG/DL (1.8-2.4) Total Bilirubin 0.3 MG/DL (0.2-1.0) Aspartate Amino Transf (AST/SGOT) 26 U/L (15-37) Alanine Aminotransferase (ALT/SGPT) 11 U/L (12-78) L Alkaline Phosphatase 77 U/L (46-116) Pro-B-Type Natriuretic Peptide 2194 pg/mL (0-125) H Total Protein 8.4 G/DL (6.4-8.2) H Albumin 1.6 G/DL (3.4-5.0) L Globulin 6.8 g/dL Albumin/Globulin Ratio 0.2 (1.0-2.7) L Test 08/09/20 05:27 POC Whole Blood Glucose 221 MG/DL (74-106) H Current Medications Medications (Trade) Dose Ordered Sig/Derrick Route PRN Reason Start Time Stop Time Status Last Admin Dose Admin Acetaminophen (Tylenol) 650 mg Q4H PRN NG For Pain 08/08/20 20:30 09/07/20 20:29 08/08/20 21:16 Acetaminophen (Tylenol) 650 mg Q4H PRN RECTAL Mild Pain (Pain Scale 1-3) 07/28/20 21:15 08/27/20 21:14 08/03/20 21:11 Acetaminophen (Tylenol) 650 mg Q6H PRN GT Temp >100.5 08/02/20 12:45 09/01/20 12:44 08/08/20 11:46 Ampicillin Sodium/ Sulbactam Sodium 3 gm/Sodium Chloride 110 ml @ 220 mls/hr Q6HR IVPB 07/31/20 13:00 08/10/20 12:59 08/09/20 05:30 Chlorhexidine Gluconate (Gwendolyn-Hex 2%) 1 applic DAILY@2000 TOPIC 07/30/20 20:00 10/28/20 19:59 08/08/20 21:14 Clonidine HCl (Catapres Tab) 0.1 mg Q4H PRN ORAL For High Blood Pressure 07/28/20 21:15 10/26/20 21:14 08/06/20 17:37 Dextrose (Dextrose 50%) 25 ml Q30M PRN IV Hypoglycemia 08/02/20 12:45 10/31/20 12:44 Dextrose (Dextrose 50%) 50 ml Q30M PRN IV Hypoglycemia 08/02/20 12:45 10/31/20 12:44 Furosemide (Lasix) 40 mg DAILY IV 08/08/20 11:30 09/07/20 11:29 08/09/20 08:44 Insulin Aspart (NovoLOG) per nurse, pt now on g-t... Q6HR SUBQ 08/02/20 12:00 10/31/20 11:59 08/09/20 05:32 Levetiracetam 100 ml @ 400 mls/hr Q12HR IVPB 07/28/20 21:15 10/26/20 21:14 08/09/20 08:46 Lorazepam (Ativan 2mg/ml 1ml) 1 mg Q3H PRN IV For Anxiety 08/02/20 15:15 08/09/20 15:14 08/02/20 15:31 Magnesium Hydroxide (Mom) 30 ml DAILYPRN PRN GT Constipation 08/05/20 21:45 09/04/20 21:44 08/05/20 22:06 Pantoprazole (Protonix) 40 mg DAILY IVP 07/29/20 09:00 08/28/20 08:59 08/09/20 08:45 Rosalinda Guerrero MD Aug 09, 2020 11:20
[2020-08-09 11:42] LABS: INR 1.1 (0.9-1.1)
[2020-08-09 12:00] VITALS: BP 143/74
--- NOTE | 2020-08-09 13:00 | NUR ---
NURSE NOTES: Pt started on a new tube feeding Glucerna 1.5 at 50 ml/hr per recommendation of Boat Master Karyn.
--- NOTE | 2020-08-09 13:04 | NUR ---
RD ASSESSMENT & RECOMMENDATIONS SEE CARE ACTIVITY FOR COMPLETE ASSESSMENT DAILY ESTIMATED NEEDS: Needs based on Critical care, wound CONTAINER COORDINATOR TF 82kg 20-28 kcals/kg 8319-7447 total kcals 1.25-2 g protein/kg 103-164 g total protein 25-30 mL/kg 3961-1652 total fluid mLs NUTRITION DIAGNOSIS: * Swallowing difficulty R/T respiratory status, dysphagia as evidenced by trach/vent dep, PEG dep. CURRENT TF: Osmolite 1.5 @20 ml/hr ENTERAL NUTRITION RECOMMENDATIONS: Glucerna 1.5 @ 50ml/hr x 24 hrs + Prosource 1pkt QD to provide 1200ml, 1800kcal, 99g +11g prot, 911ml free water * As medically able, rec GLUCERNA 1.5. Start @20ml/hr for 6 hrs, advance as tolerated 10ml/hr q4-6 hrs to goal. * Once TF well tolerated at goal, add Prosource 1pkt QD to meet est protein needs * HOB over 30 degrees/ water flush per MD ADDITIONAL RECOMMENDATIONS: * Re-calibrated bedcale wt for accurate CBW * Monitor lytes closely krystle w/ Lasix, replete as needed * Rec wound care eval -> Stage 2, add Vit C 250mg QD + MANJIT BID * Close BG monitoring: previously w/ hypoglycemic episode, now BGs 200's -> Rec TF change to carb controlled TF * TF rec as above .
--- NOTE | 2020-08-09 13:09 | Surgery Progress Note ---
Surgery Progress Note Subjective Additional Comments tf at 20cc please advance to goal wean O2 exam stable Objective Last 24 Hour Vital Signs Date Time Temp Pulse Resp B/P (MAP) Pulse Ox O2 Delivery O2 Flow Rate FiO2 08/09/20 12:00 Mechanical Ventilator 08/09/20 12:00 69 08/09/20 12:00 97.9 69 22 143/74 (97) 97 08/09/20 12:00 35 08/09/20 11:10 68 20 35 08/09/20 08:00 82 08/09/20 08:00 35 08/09/20 08:00 Mechanical Ventilator 08/09/20 08:00 98.4 66 20 143/71 (95) 95 08/09/20 07:15 66 17 35 08/09/20 04:00 90 08/09/20 04:00 35 08/09/20 04:00 98.1 65 30 136/72 (93) 98 08/09/20 04:00 Mechanical Ventilator 08/09/20 03:45 79 29 35 08/09/20 00:00 98.6 69 27 119/62 (81) 98 08/09/20 00:00 72 08/09/20 00:00 35 08/08/20 23:25 Mechanical Ventilator 08/08/20 22:51 73 24 35 08/08/20 20:00 35 08/08/20 20:00 76 08/08/20 20:00 99.3 70 32 134/68 (90) 100 08/08/20 19:31 86 18 35 08/08/20 16:09 Mechanical Ventilator 08/08/20 16:05 35 08/08/20 16:00 99.0 79 18 129/67 (87) 99 08/08/20 16:00 78 08/08/20 15:14 93 26 35 I&O Intake and Output 08/08/20 08/09/20 19:00 07:00 Intake Total 620 ml 860 ml Output Total 1400 ml 500 ml Balance -780 ml 360 ml Free Water 200 ml 300 ml IV Total 320 ml Tube Feeding 240 ml 240 ml Other 180 ml Output Urine Total 1400 ml 500 ml # Bowel Movements 2 Dressing: saturated Cardiovascular: RSR Respiratory: decreased breath sounds Abdomen: non-tender, present bowel sounds Extremities: no edema, no tenderness, no cyanosis Laboratory Tests Test 08/08/20 17:04 08/09/20 00:11 08/09/20 03:30 08/09/20 05:27 POC Whole Blood Glucose 202 MG/DL (74-106) H 234 MG/DL (74-106) H 221 MG/DL (74-106) H White Blood Count 10.4 K/UL (4.8-10.8) Red Blood Count 3.22 M/UL (4.70-6.10) L Hemoglobin 9.0 G/DL (14.2-18.0) L Hematocrit 26.7 % (42.0-52.0) L Mean Corpuscular Volume 83 FL (80-99) Mean Corpuscular Hemoglobin 27.9 PG (27.0-31.0) Mean Corpuscular Hemoglobin Concent 33.7 G/DL (32.0-36.0) Red Cell Distribution Width 19.3 % (11.6-14.8) H Platelet Count 338 K/UL (150-450) Mean Platelet Volume 8.1 FL (6.5-10.1) Neutrophils (%) (Auto) 63.0 % (45.0-75.0) Lymphocytes (%) (Auto) 24.0 % (20.0-45.0) Monocytes (%) (Auto) 4.9 % (1.0-10.0) Eosinophils (%) (Auto) 7.5 % (0.0-3.0) H Basophils (%) (Auto) 0.7 % (0.0-2.0) Sodium Level 142 MMOL/L (136-145) Potassium Level 3.3 MMOL/L (3.5-5.1) L Chloride Level 108 MMOL/L (98-107) H Carbon Dioxide Level 30 MMOL/L (21-32) Anion Gap 4 mmol/L (5-15) L Blood Urea Nitrogen 12 mg/dL (7-18) Creatinine 1.0 MG/DL (0.55-1.30) Estimat Glomerular Filtration Rate > 60 mL/min (>60) Glucose Level 192 MG/DL (74-106) H Calcium Level 7.4 MG/DL (8.5-10.1) L Magnesium Level 2.0 MG/DL (1.8-2.4) Total Bilirubin 0.3 MG/DL (0.2-1.0) Aspartate Amino Transf (AST/SGOT) 26 U/L (15-37) Alanine Aminotransferase (ALT/SGPT) 11 U/L (12-78) L Alkaline Phosphatase 77 U/L (46-116) Pro-B-Type Natriuretic Peptide 2194 pg/mL (0-125) H Total Protein 8.4 G/DL (6.4-8.2) H Albumin 1.6 G/DL (3.4-5.0) L Globulin 6.8 g/dL Albumin/Globulin Ratio 0.2 (1.0-2.7) L Test 08/09/20 11:20 08/09/20 12:10 Prothrombin Time 12.3 SEC (9.30-11.50) H Prothromb Time International Ratio 1.1 (0.9-1.1) Activated Partial Thromboplast Time 28 SEC (23-33) POC Whole Blood Glucose 213 MG/DL (74-106) H Plan Problems: (1) Sepsis Assessment & Plan: 75M. cxr with possible free air. ct done and noted. abd distended. exam limited leukocytosis abnormal labs improving with fluids trach malfunction now improved on vent support cont current care will monitor and follow with recs PICC line trend labs transfuse prbc prn trach leak needs trach change trach changed cxr noted infiltrates labs improving d/c planning cont abx as per ID ABDOMEN: Liver: Unremarkable. Gallbladder and bile ducts: Unremarkable. No calcified stones. Pancreas: Unremarkable. Spleen: Unremarkable. Adrenals: Unremarkable. Kidneys and ureters: Unremarkable. No hydronephrosis. Stomach and bowel: Mildly thickened sigmoid colon which may be underdistention, chronic, colitis, versus lesion. Colonic air-distention which may be ileus. No bowel obstruction or diverticulitis. PELVIS: Appendix: No findings to suggest acute appendicitis. Bladder: Thickened bladder which may be chronic, cystitis, versus lesion. Vera catheter in the bladder. Reproductive: Unremarkable as visualized. ABDOMEN and PELVIS: Intraperitoneal space: No free air. Bones/joints: No acute fracture. Soft tissues: Unremarkable. Vasculature: Unremarkable. Lymph nodes: Unremarkable. Tubes, lines and devices: Gastrostomy tube in the stomach. IMPRESSION: 1. Mildly thickened sigmoid colon which may be underdistention, chronic, colitis, versus lesion. Colonic air-distention which may be ileus. No bowel obstruction or diverticulitis. 2. Thickened bladder which may be chronic, cystitis, versus lesion. 3. Bibasilar infiltrates. Small left pleural effusion. There is a tracheostomy which appears appropriately positioned. There are bilateral moderate to large pleural effusions. There is extensive parenchymal disease involving the right upper lobe and right lower lobe. Some of this has a possible honeycomb appearance, versus intralobular septal thickening in areas of air- trapping. There are other areas of denser consolidation noted. A calcified granuloma is seen in the superior segment of the right lower lobe. Dense consolidation is seen involving much of the left upper lobe. There is considerable volume loss of the left lower lobe, partly due to cardiomegaly and probably due to the pleural effusions. The heart is mildly enlarged. There is no pericardial effusion. The main pulmonary artery is dilated, measuring 4 cm in diameter. Calcified granulomatous lymph nodes are seen in the right pulmonary hilum and subcarinal region. No mediastinal or hilar mass or adenopathy is demonstrated. No axillary or chest wall mass or adenopathy. There is unilateral gynecomastia on the left. There is a right arm PICC, tip in the mid superior vena cava. There is some edema of the left chest wall and upper abdominal wall. The included upper abdominal viscera demonstrate a gastrostomy tube in place. Impression: Bilateral moderate to large pleural effusions Extensive bilateral parenchymal disease. This may indicate pulmonary edema, bilateral pneumonia, and there may be a significant chronic component as well Evidence of old granulomatous disease within the right lung and hilar and mediastinal lymph nodes Cardiomegaly Dilated main pulmonary artery, likely indicative of pulmonary arterial hypertension DAILY ESTIMATED NEEDS: Needs based on Critical care, wound HEAD OF ART TF 82kg 20-28 kcals/kg 6953-5493 total kcals 1.25-2 g protein/kg 103-164 g total protein 25-30 mL/kg 1867-0250 total fluid mLs NUTRITION DIAGNOSIS: * Swallowing difficulty R/T respiratory status, dysphagia as evidenced by trach/vent dep, PEG dep. CURRENT TF: Osmolite 1.5 @20 ml/hr ENTERAL NUTRITION RECOMMENDATIONS: Glucerna 1.5 @ 50ml/hr x 24 hrs + Prosource 1pkt QD to provide 1200ml, 1800kcal, 99g +11g prot, 911ml free water * As medically able, rec GLUCERNA 1.5. Start @20ml/hr for 6 hrs, advance as tolerated 10ml/hr q4-6 hrs to goal. * Once TF well tolerated at goal, add Prosource 1pkt QD to meet est protein needs * HOB over 30 degrees/ water flush per MD ADDITIONAL RECOMMENDATIONS: * Re-calibrated bedcale wt for accurate CBW * Monitor lytes closely krystle w/ Lasix, replete as needed * Rec wound care eval -> Stage 2, add Vit C 250mg QD + MANJIT BID * Close BG monitoring: previously w/ hypoglycemic episode, now BGs 200's -> Rec TF change to carb controlled TF * TF rec as above . (2) Pneumonia (3) Free intraperitoneal air Assessment & Plan: Apparent lucency underlying the right hemidiaphragm. This may potentially be artifactual. Recommend correlation with CT of the abdomen to exclude the possibility of free peritoneal air, particularly if there is a history of abdominal pain. Extensive interstitial and alveolar infiltrates concerning for multifocal pneumonia. Possibility of underlying chronic interstitial/chronic lung disease and scarring can also be considered. Indwelling tracheostomy tube. (4) Perforated abdominal viscus Assessment & Plan: CT reviewed no free air artifact on cxr abd distended cannot tell tender given condition will monitor (5) Decubitus skin ulcer (6) Hyperglycemia (7) Leukocytosis (8) GIB (gastrointestinal bleeding) (9) POPPY (acute kidney injury) (10) Dyspnea (11) Respiratory distress Assessment & Plan: trach changed 6f shiley stable now Abdoul Lucas Aug 09, 2020 13:09
--- NOTE | 2020-08-09 13:11 | NUR ---
CASE MANAGEMENT:REVIEW 08/09/20 SI: SEPSIS. PNA. BILATERAL MOD-LG PLEURAL EFF. TRACH/VENT 98.4 66 20 143/71 95% ON VENT SUPPORT W/35% FIO2 H/H-9.0/26.7 K-3.3 BNP+2194 IS: IV KEPPRA Q12 IV LASIX QD VIT C GT BID : STEP DOWN UNIT DCP: FROM [facility] PLAN: THORACENTESIS
[2020-08-09 16:00] VITALS: BP 139/73
--- NOTE | 2020-08-09 16:20 | General Progress Note ---
Subjective ROS Limited/Unobtainable: Yes Constitutional: Reports: malaise, weakness HEENT: Reports: no symptoms Cardiovascular: Reports: edema Allergies: Coded Allergies: No Known Allergies (Unverified , 07/04/18) Subjective no events. stable on the vent. on iv abx. CT noted- bárbara pleural effusions and infiltrates. labs stable. no fevers. tolerating feeds. seems more congested. on lasix. tap ordered by pulm Objective Last 24 Hour Vital Signs Date Time Temp Pulse Resp B/P (MAP) Pulse Ox O2 Delivery O2 Flow Rate FiO2 08/09/20 12:00 Mechanical Ventilator 08/09/20 12:00 69 08/09/20 12:00 97.9 69 22 143/74 (97) 97 08/09/20 12:00 35 08/09/20 11:10 68 20 35 08/09/20 08:00 82 08/09/20 08:00 35 08/09/20 08:00 Mechanical Ventilator 08/09/20 08:00 98.4 66 20 143/71 (95) 95 08/09/20 07:15 66 17 35 08/09/20 04:00 90 08/09/20 04:00 35 08/09/20 04:00 98.1 65 30 136/72 (93) 98 08/09/20 04:00 Mechanical Ventilator 08/09/20 03:45 79 29 35 08/09/20 00:00 98.6 69 27 119/62 (81) 98 08/09/20 00:00 72 08/09/20 00:00 35 08/08/20 23:25 Mechanical Ventilator 08/08/20 22:51 73 24 35 08/08/20 20:00 35 08/08/20 20:00 76 08/08/20 20:00 99.3 70 32 134/68 (90) 100 08/08/20 19:31 86 18 35 Intake and Output 08/08/20 08/09/20 19:00 07:00 Intake Total 620 ml 860 ml Output Total 1400 ml 500 ml Balance -780 ml 360 ml Free Water 200 ml 300 ml IV Total 320 ml Tube Feeding 240 ml 240 ml Other 180 ml Output Urine Total 1400 ml 500 ml # Bowel Movements 2 Laboratory Tests 08/08/20 17:04: POC Whole Blood Glucose 202H 11/30/20 00:11: POC Whole Blood Glucose 234H 08/09/20 03:30: White Blood Count 10.4, Red Blood Count 3.22L, Hemoglobin 9.0L, Hematocrit 26.7L , Mean Corpuscular Volume 83, Mean Corpuscular Hemoglobin 27.9, Mean Corpuscular Hemoglobin Concent 33.7, Red Cell Distribution Width 19.3H, Platelet Count 338, Mean Platelet Volume 8.1, Neutrophils (%) (Auto) 63.0, Lymphocytes (%) (Auto) 24.0, Monocytes (%) (Auto) 4.9, Eosinophils (%) (Auto) 7.5H, Basophils (%) (Auto ) 0.7, Sodium Level 142, Potassium Level 3.3L, Chloride Level 108H, Carbon Dioxide Level 30, Anion Gap 4L, Blood Urea Nitrogen 12, Creatinine 1.0, Estimat Glomerular Filtration Rate > 60, Glucose Level 192H, Calcium Level 7.4L, Magnesium Level 2.0, Total Bilirubin 0.3, Aspartate Amino Transf (AST/SGOT) 26, Alanine Aminotransferase (ALT/SGPT) 11L, Alkaline Phosphatase 77, Pro-B-Type Natriuretic Peptide 2194H, Total Protein 8.4H, Albumin 1.6L, Globulin 6.8, Albumin/Globulin Ratio 0.2L 08/09/20 05:27: POC Whole Blood Glucose 221H 08/09/20 11:20: Prothrombin Time 12.3H, Prothromb Time International Ratio 1.1, Activated Partial Thromboplast Time 28 08/09/20 12:10: POC Whole Blood Glucose 213H Height (Feet): 5 Height (Inches): 11.00 Weight (Pounds): 180 Objective General Appearance: WD/WN, lethargic, confused EENT: PERRL/EOMI Neck: non-tender, normal alignment Cardiovascular: normal peripheral pulses, normal rate Respiratory/Chest: chest wall non-tender, lungs clear, normal breath sounds, no respiratory distress Abdomen: normal bowel sounds, non tender, soft, no organomegaly Extremities: normal range of motion Neurologic: disoriented, unresponsive, aphasia Skin: normal pigmentation Assessment/Plan Problem List: (1) Sepsis ICD Codes: A41.9 - Sepsis, unspecified organism SNOMED: 04269739 (2) Pneumonia ICD Codes: J18.9 - Pneumonia, unspecified organism SNOMED: 004063278 (3) Leukocytosis ICD Codes: D72.829 - Elevated white blood cell count, unspecified SNOMED: 881351534, 953529727 (4) POPPY (acute kidney injury) ICD Codes: N17.9 - Acute kidney failure, unspecified SNOMED: 9202535, 49864113 (5) Dyspnea ICD Codes: R06.00 - Dyspnea, unspecified SNOMED: 768051344 (6) Respiratory distress ICD Codes: R06.03 - Acute respiratory distress SNOMED: 025679234 Status: stable, not improved Assessment/Plan: tube feeds. monitor residuals off ivf iv lasix thoracentesis iv abx per id tube feeds monitor residuals vent resp rx suctioning sz rx poor halfway prognosis Chano Galeana MD Aug 09, 2020 16:20
[2020-08-09] MEDS: Ascorbic Acid 500mg tab ORAL SCH (17:45)
--- NOTE | 2020-08-09 19:00 | NUR ---
NURSE HAND-OFF REPORT: Important Events on Shift:N/A Patient Status: N/A Diet: Glucerna 1.5 4m ml/hr GT Pending Orders: N/A Pending Results/Labs:N/A Pending MD notification:N/A Latest Vital Signs: Temperature 98.1 , Pulse 67 , B/P 139 /73 , Respiratory Rate 19 , O2 SAT 96 , Mechanical Ventilator, O2 Flow Rate . Vital Sign Comment: stable EKG Rhythm: Sinus Rhythm Rhythm change?: N MD Notified?: - MD Response: Latest Ackerman Fall Score: 70 Fall Risk: High Risk Safety Measures: Call light Within Reach, Bed Alarm Zone 1, Side Rails Side Rails x3, Bed position Low and Locked. Fall Precautions: Yellow Socks Yellow Gown Door Sign Report given to Lina Trivedi RN.
--- NOTE | 2020-08-09 19:20 | NUR ---
RESPIRATORY NOTE: PT RECEIVED STABLE ON CMV WITH CURRENT SETTINGS: 16, 500, 35%, +5. ALARMS ON AND AUDIBLE. VENT CIRCUIT AND SX SECURE AND OUT OF THE WAY. NO S/S OF RESPIRATORY DISTRESS NOTED AT THIS TIME. WILL CONTINUE TO MONITOR.
--- NOTE | 2020-08-09 19:30 | NUR ---
NURSE NOTES: RECEIVED PATIENT FROM MANNY MOSQUEDA.WITH TRACH TO VENT AT ORDERED SETTINGS WELL TOLERATED.SECRETIONS LARGE THICK WHITE,SUCTIONED ,ORAL CARE RENDERED.GT WITH GLUCERNA 1.5 @ 40 CC/HR,NO RESIDUALS INCREASED RATE TO 50 ML/HR.KEPT HOB AT 35 DEGREES.REPOSITIONED FOR COMFORT WOUND DRESSING DRY AND INTACT. SR ON THE MONITOR.WILL CONTINUE TO MONITOR PTS CONDITION
[2020-08-09 20:00] VITALS: BP 139/73
[2020-08-09] MEDS: Dyna-Hex 2% Top Sol 2oz TOPIC SCH (20:00)
[2020-08-10] VITALS: BP 139/59
[2020-08-10] MEDS: NovoLOG Insulin Flexpen SUBQ SCH ×5 (00:26→23:10)
--- NOTE | 2020-08-10 01:32 | Cardiology Progress Note ---
Subjective DATE OF SERVICE: Aug 09, 2020 On vent support Remains congested; continues to receive diuresis, and awaiting pleural tap. Monitor: sinus tachycardia with occ PAC's CXR: bilateral infiltrates and effusions Objective Last 24 Hour Vital Signs Date Time Temp Pulse Resp B/P (MAP) Pulse Ox O2 Delivery O2 Flow Rate FiO2 08/09/20 23:00 89 36 35 08/09/20 20:01 35 08/09/20 20:00 95 08/09/20 20:00 98.1 68 19 139/73 (95) 96 08/09/20 20:00 Mechanical Ventilator 08/09/20 19:20 73 22 35 08/09/20 16:00 67 08/09/20 16:00 35 08/09/20 16:00 98.1 68 19 139/73 (95) 96 08/09/20 16:00 Mechanical Ventilator 08/09/20 15:10 71 26 35 08/09/20 12:00 Mechanical Ventilator 08/09/20 12:00 69 08/09/20 12:00 97.9 69 22 143/74 (97) 97 08/09/20 12:00 35 08/09/20 11:10 68 20 35 08/09/20 08:00 82 08/09/20 08:00 35 08/09/20 08:00 Mechanical Ventilator 08/09/20 08:00 98.4 66 20 143/71 (95) 95 08/09/20 07:15 66 17 35 08/09/20 04:00 90 08/09/20 04:00 35 08/09/20 04:00 98.1 65 30 136/72 (93) 98 08/09/20 04:00 Mechanical Ventilator 08/09/20 03:45 79 29 35 ROS: unchanged HEENT: Thin Trach secretions, other - protruding tongue RHYTHM: NSR, ST, PACs LUNGS: diminished breath sounds - bilat, left-sided rhonchi CARDIAC: normal rate, regular rhythm, normal S1 and S2 ABDOMEN: normal bowel sounds, non tender, soft, no organomegaly, G-Tube intact EXTREMITIES: normal range of motion, no calf tenderness, trace edema Laboratory Tests Test 08/09/20 03:30 08/09/20 05:27 08/09/20 11:20 08/09/20 12:10 White Blood Count 10.4 K/UL (4.8-10.8) Red Blood Count 3.22 M/UL (4.70-6.10) L Hemoglobin 9.0 G/DL (14.2-18.0) L Hematocrit 26.7 % (42.0-52.0) L Mean Corpuscular Volume 83 FL (80-99) Mean Corpuscular Hemoglobin 27.9 PG (27.0-31.0) Mean Corpuscular Hemoglobin Concent 33.7 G/DL (32.0-36.0) Red Cell Distribution Width 19.3 % (11.6-14.8) H Platelet Count 338 K/UL (150-450) Mean Platelet Volume 8.1 FL (6.5-10.1) Neutrophils (%) (Auto) 63.0 % (45.0-75.0) Lymphocytes (%) (Auto) 24.0 % (20.0-45.0) Monocytes (%) (Auto) 4.9 % (1.0-10.0) Eosinophils (%) (Auto) 7.5 % (0.0-3.0) H Basophils (%) (Auto) 0.7 % (0.0-2.0) Sodium Level 142 MMOL/L (136-145) Potassium Level 3.3 MMOL/L (3.5-5.1) L Chloride Level 108 MMOL/L (98-107) H Carbon Dioxide Level 30 MMOL/L (21-32) Anion Gap 4 mmol/L (5-15) L Blood Urea Nitrogen 12 mg/dL (7-18) Creatinine 1.0 MG/DL (0.55-1.30) Estimat Glomerular Filtration Rate > 60 mL/min (>60) Glucose Level 192 MG/DL (74-106) H Calcium Level 7.4 MG/DL (8.5-10.1) L Magnesium Level 2.0 MG/DL (1.8-2.4) Total Bilirubin 0.3 MG/DL (0.2-1.0) Aspartate Amino Transf (AST/SGOT) 26 U/L (15-37) Alanine Aminotransferase (ALT/SGPT) 11 U/L (12-78) L Alkaline Phosphatase 77 U/L (46-116) Pro-B-Type Natriuretic Peptide 2194 pg/mL (0-125) H Total Protein 8.4 G/DL (6.4-8.2) H Albumin 1.6 G/DL (3.4-5.0) L Globulin 6.8 g/dL Albumin/Globulin Ratio 0.2 (1.0-2.7) L POC Whole Blood Glucose 221 MG/DL (74-106) H 213 MG/DL (74-106) H Prothrombin Time 12.3 SEC (9.30-11.50) H Prothromb Time International Ratio 1.1 (0.9-1.1) Activated Partial Thromboplast Time 28 SEC (23-33) Test 08/09/20 17:45 08/10/20 00:22 POC Whole Blood Glucose 194 MG/DL (74-106) H 209 MG/DL (74-106) H Assessment/Plan Assessment/Plan Sepsis Possible perf viscous Respiratory failure Chronic encephalopathy Paroxysmal atrial ectopy Sinus tachycardia Anemia Dehydration/hypernatremia Hypokalemia Severe protein/calorie malnutrition Hypomagnesemia HC assoc PNA CHF, ac/chr diastolic Pleural effusions Diuresis; trend BNP Therapeutic thorocentesis Titrate beta toni. Antimicrobials Anti-sz medx Vent support Protein suppl DVT prophyl [place] MD Aug 10, 2020 01:32
[2020-08-10 04:15] VITALS: BP 141/71
[2020-08-10 06:29] LABS: BASOPHILS % (AUTO) 0.6 % (0.0-2.0); HEMATOCRIT 27.4 % (42.0-52.0); HEMOGLOBIN 9.1 G/DL (14.2-18.0); LYMPHOCYTES % (AUTO) 24.6 % (20.0-45.0); MEAN CORPUSCULAR VOLUME 83 FL (80-99); MONOCYTES % (AUTO) 4.9 % (1.0-10.0); NEUTROPHILS % (AUTO) 60.8 % (45.0-75.0); PLATELET COUNT 339 K/UL (150-450); RED BLOOD COUNT 3.29 M/UL (4.70-6.10); RED CELL DISTRIBUTION WIDTH 19.3 % (11.6-14.8); WHITE BLOOD COUNT 9.7 K/UL (4.8-10.8)
[2020-08-10 06:59] LABS: ALANINE AMINOTRANSFERASE 13 U/L (12-78); ALBUMIN 1.6 G/DL (3.4-5.0); ALBUMIN/GLOBULIN RATIO 0.2 (1.0-2.7); ALKALINE PHOSPHATASE 84 U/L (46-116); ANION GAP 6 mmol/L (5-15); ASPARTATE AMINO TRANSFERASE 26 U/L (15-37); BILIRUBIN,TOTAL 0.3 MG/DL (0.2-1.0); BLOOD UREA NITROGEN 15 mg/dL (7-18); CALCIUM 7.6 MG/DL (8.5-10.1); CARBON DIOXIDE 28 MMOL/L (21-32); CHLORIDE 106 MMOL/L (98-107); CREATININE 1.1 MG/DL (0.55-1.30); POTASSIUM 3.8 MMOL/L (3.5-5.1); SODIUM 140 MMOL/L (136-145)
--- NOTE | 2020-08-10 07:20 | NUR ---
NURSE NOTES: Received report from MANNY Mills. Patient is sleeping with no signs of respiratory or cardiac distress noted. HR of 65 on quality assurance monitor body. Large amount of secretions suctioned. Tolerating trach to vent settings: Shiley 6, AC 16, TV 500, FIO2 35, PEEP 5. GTF running Glucerna 1.5 @ 50ml/hr- tolerating well. Vera catheter intact and draining to gravity. Fall and aspiration precautions noted. Bed in lowest position, side rails up, HOB elevated. Will continue to monitor. Will continue plan of care.
--- NOTE | 2020-08-10 07:23 | Critical Care Progress Note ---
Assessment/Plan Assessment/Plan IMPRESSION: probable sepsis, hyponatremia, acute renal failure, chronic respiratory failure, thickened colon diffuse pneumonia, elevated lactic dehydrogenase, abdominal distention, severe protein-calorie malnutrition, seizure disorder. pneumonia, anemia, diffuse pulmonary infiltrates with bilateral pleural effusions, likely 3rd spacing PLAN tap pending monitor blood sugars repeat CXR- after tap IV antibiotics respiratory care Ventilatory support SNF meds supportive care monitor for seizures monitor residuals no wean planned oxygen therapy prognosis critical dc planning taper oxygen as able impression, plan, and exam edited and reviewed in detail care discussed with cooperer - Subjective ROS Limited/Unobtainable: Yes Condition: unchanged EKG Rhythm: Sinus Rhythm Residuals: minimal Tube Feeding Tolerated: yes I&O: Intake and Output 08/09/20 08/10/20 19:00 07:00 Intake Total 740 ml 50 ml Output Total 1300 ml 400 ml Balance -560 ml -350 ml Free Water 200 ml Tube Feeding 300 ml 50 ml Other 240 ml Output Urine Total 1300 ml 400 ml Critical Care - Objective Last 24 Hour Vital Signs Date Time Temp Pulse Resp B/P (MAP) Pulse Ox O2 Delivery O2 Flow Rate FiO2 08/10/20 04:15 98.2 80 20 141/71 (94) 98 08/10/20 04:11 72 08/10/20 04:11 35 08/10/20 03:20 73 22 35 08/10/20 02:00 Mechanical Ventilator 08/10/20 00:00 98.2 87 30 139/59 (85) 96 08/09/20 23:00 89 36 35 08/09/20 20:01 35 08/09/20 20:00 95 08/09/20 20:00 98.1 68 19 139/73 (95) 96 08/09/20 20:00 Mechanical Ventilator 08/09/20 19:20 73 22 35 08/09/20 16:00 67 08/09/20 16:00 35 08/09/20 16:00 98.1 68 19 139/73 (95) 96 08/09/20 16:00 Mechanical Ventilator 08/09/20 15:10 71 26 35 08/09/20 12:00 Mechanical Ventilator 08/09/20 12:00 69 08/09/20 12:00 97.9 69 22 143/74 (97) 97 08/09/20 12:00 35 08/09/20 11:10 68 20 35 08/09/20 08:00 82 08/09/20 08:00 35 08/09/20 08:00 Mechanical Ventilator 08/09/20 08:00 98.4 66 20 143/71 (95) 95 Labs: Laboratory Tests 08/09/20 11:20: Prothrombin Time 12.3H, Prothromb Time International Ratio 1.1, Activated Partial Thromboplast Time 28 08/09/20 12:10: POC Whole Blood Glucose 213H 08/09/20 17:45: POC Whole Blood Glucose 194H 08/10/20 00:22: POC Whole Blood Glucose 209H 08/10/20 05:40: POC Whole Blood Glucose 212H 08/10/20 06:00: White Blood Count 9.7, Red Blood Count 3.29L, Hemoglobin 9.1L, Hematocrit 27.4L, Mean Corpuscular Volume 83, Mean Corpuscular Hemoglobin 27.7, Mean Corpuscular Hemoglobin Concent 33.2, Red Cell Distribution Width 19.3H, Platelet Count 339, Mean Platelet Volume 8.4, Neutrophils (%) (Auto) 60.8, Lymphocytes (%) (Auto) 24.6, Monocytes (%) (Auto) 4.9, Eosinophils (%) (Auto) 9.0H, Basophils (%) (Auto) 0.6, Sodium Level 140, Potassium Level 3.8, Chloride Level 106, Carbon Dioxide Level 28, Anion Gap 6, Blood Urea Nitrogen 15, Creatinine 1.1, Estimat Glomerular Filtration Rate > 60, Glucose Level 227H, Calcium Level 7.6L, Magnes ium Level 1.9, Total Bilirubin 0.3, Aspartate Amino Transf (AST/SGOT) 26, Alanine Aminotransferase (ALT/SGPT) 13, Alkaline Phosphatase 84, Total Protein 8.5H, Albumin 1.6L, Globulin 6.9, Albumin/Globulin Ratio 0.2L Objective: GENERAL: An ill-appearing male, chronically ill. HEENT: Negative. Tracheostomy midline. The patient is with chronic tongue protrusion. LUNGS: Coarse breath sounds. moderate breath sounds CARDIAC: S1, S2. Regular rate and rhythm. ABDOMEN: Distended. Poor bowel sounds. EXTREMITIES: No cyanosis or clubbing. There is mild edema. NEUROLOGIC: Poorly responsive to pain. Accucheck: 212 Bakari Montanez MD Aug 10, 2020 07:23
[2020-08-10 07:42] VITALS: BP 152/76
--- NOTE | 2020-08-10 07:59 | NUR ---
NURSE HAND-OFF REPORT: Important Events on Shift:none Patient Status: stable Diet: glucerna 1.5 @ 50 cc/hr Pending Orders: Pending Results/Labs cbc bmp Pending MD notification:no Latest Vital Signs: Temperature 97.9 , Pulse 65 , B/P 152 /76 , Respiratory Rate 22 , O2 SAT 100 , Mechanical Ventilator, O2 Flow Rate . Vital Sign Comment: stable EKG Rhythm: Sinus Rhythm Rhythm change?: N MD Notified?: - MD Response: Latest Ackerman Fall Score: 70 Fall Risk: High Risk Safety Measures: Call light Within Reach, Bed Alarm Zone 1, Side Rails Side Rails x3, Bed position Low and Locked. Fall Precautions: Yellow Socks Yellow Gown Door Sign Report given to Zac.
--- NOTE | 2020-08-10 09:00 | NUR ---
NURSE NOTES: Dr Montanez at bedside,updated re pt;s status,DCPafter Thoracentesis tomorrow.
[2020-08-10] MEDS: Ascorbic Acid 500mg tab ORAL SCH (09:05)
[2020-08-10] MEDS: Pantoprazole Inj IVP SCH (09:06)
[2020-08-10] MEDS: levETIRAcetam 1,000mg/NS100ml 100 ML IVPB SCH ×2 (09:06→20:31)
--- NOTE | 2020-08-10 09:18 | General Progress Note ---
Subjective ROS Limited/Unobtainable: No Constitutional: Reports: malaise, weakness HEENT: Reports: no symptoms Cardiovascular: Reports: no symptoms Respiratory: Reports: cough, shortness of breath, sputum Gastrointestinal/Abdominal: Reports: difficulty swallowing Genitourinary: Reports: no symptoms Neurologic/Psychiatric: Reports: pre-existing deficit, seizure Endocrine: Reports: no symptoms Hematologic/Lymphatic: Reports: anemia Allergies: Coded Allergies: No Known Allergies (Unverified , 07/04/18) All Systems: reviewed and negative except above Subjective no events. no real change. congested. remains on the vent. poorly responsive, tolerating feed. no reports of szs. Objective Last 24 Hour Vital Signs Date Time Temp Pulse Resp B/P (MAP) Pulse Ox O2 Delivery O2 Flow Rate FiO2 08/10/20 07:52 71 08/10/20 07:42 97.9 65 22 152/76 (101) 100 08/10/20 04:15 98.2 80 20 141/71 (94) 98 08/10/20 04:11 72 08/10/20 04:11 35 08/10/20 03:20 73 22 35 08/10/20 02:00 Mechanical Ventilator 08/10/20 00:00 98.2 87 30 139/59 (85) 96 08/09/20 23:00 89 36 35 08/09/20 20:01 35 08/09/20 20:00 95 08/09/20 20:00 98.1 68 19 139/73 (95) 96 08/09/20 20:00 Mechanical Ventilator 08/09/20 19:20 73 22 35 08/09/20 16:00 67 08/09/20 16:00 35 08/09/20 16:00 98.1 68 19 139/73 (95) 96 08/09/20 16:00 Mechanical Ventilator 08/09/20 15:10 71 26 35 08/09/20 12:00 Mechanical Ventilator 08/09/20 12:00 69 08/09/20 12:00 97.9 69 22 143/74 (97) 97 08/09/20 12:00 35 08/09/20 11:10 68 20 35 Intake and Output 08/09/20 08/10/20 19:00 07:00 Intake Total 740 ml 720 ml Output Total 1300 ml 400 ml Balance -560 ml 320 ml Free Water 200 ml 120 ml IV Total 100 ml Tube Feeding 300 ml 500 ml Other 240 ml Output Urine Total 1300 ml 400 ml Laboratory Tests 08/09/20 11:20: Prothrombin Time 12.3H, Prothromb Time International Ratio 1.1, Activated Partial Thromboplast Time 28 08/09/20 12:10: POC Whole Blood Glucose 213H 08/09/20 17:45: POC Whole Blood Glucose 194H 08/10/20 00:22: POC Whole Blood Glucose 209H 08/10/20 05:40: POC Whole Blood Glucose 212H 08/10/20 06:00: White Blood Count 9.7, Red Blood Count 3.29L, Hemoglobin 9.1L, Hematocrit 27.4L, Mean Corpuscular Volume 83, Mean Corpuscular Hemoglobin 27.7, Mean Corpuscular Hemoglobin Concent 33.2, Red Cell Distribution Width 19.3H, Platelet Count 339, Mean Platelet Volume 8.4, Neutrophils (%) (Auto) 60.8, Lymphocytes (%) (Auto) 24.6, Monocytes (%) (Auto) 4.9, Eosinophils (%) (Auto) 9.0H, Basophils (%) (Auto) 0.6, Sodium Level 140, Potassium Level 3.8, Chloride Level 106, Carbon Dioxide Level 28, Anion Gap 6, Blood Urea Nitrogen 15, Creatinine 1.1, Estimat Glomerular Filtration Rate > 60, Glucose Level 227H, Calcium Level 7.6L, Magnesium Level 1.9, Total Bilirubin 0.3, Aspartate Amino Transf (AST/SGOT) 26, Alanine Aminotransferase (ALT/SGPT) 13, Alkaline Phosphatase 84, Total Protein 8.5H, Albumin 1.6L, Globulin 6.9, Albumin/Globulin Ratio 0.2L Height (Feet): 5 Height (Inches): 11.00 Weight (Pounds): 180 Objective General Appearance: WD/WN, lethargic, confused EENT: PERRL/EOMI Neck: non-tender, normal alignment Cardiovascular: normal peripheral pulses, normal rate Respiratory/Chest: chest wall non-tender, lungs clear, normal breath sounds, no respiratory distress Abdomen: normal bowel sounds, non tender, soft, no organomegaly Extremities: normal range of motion Neurologic: disoriented, unresponsive, aphasia Skin: normal pigmentation Assessment/Plan Problem List: (1) Sepsis ICD Codes: A41.9 - Sepsis, unspecified organism SNOMED: 44493953 (2) Pneumonia ICD Codes: J18.9 - Pneumonia, unspecified organism SNOMED: 796159438 (3) Leukocytosis ICD Codes: D72.829 - Elevated white blood cell count, unspecified SNOMED: 002696618, 224384771 (4) POPPY (acute kidney injury) ICD Codes: N17.9 - Acute kidney failure, unspecified SNOMED: 7806819, 41836395 (5) Dyspnea ICD Codes: R06.00 - Dyspnea, unspecified SNOMED: 093300273 (6) Respiratory distress ICD Codes: R06.03 - Acute respiratory distress SNOMED: 834014769 Status: stable, not improved Assessment/Plan: tube feeds. 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
--- NOTE | 2020-08-10 11:16 | Infectious Diseases Prog Note ---
Assessment/Plan Assessment/Plan antibiotics : none A 1. acenitobacter pneumonia s/p rx COVID 19 negative 2. respiratory failure 3. colitis 4. UTI 5. diabetes mellitus 6. hypertension 7. COPD P 1. observe off antibiotics Subjective ROS Limited/Unobtainable: Yes Allergies: Coded Allergies: No Known Allergies (Unverified , 07/04/18) Objective Last 24 Hour Vital Signs Date Time Temp Pulse Resp B/P (MAP) Pulse Ox O2 Delivery O2 Flow Rate FiO2 08/10/20 08:00 35 08/10/20 07:52 71 08/10/20 07:42 97.9 65 22 152/76 (101) 100 08/10/20 04:15 98.2 80 20 141/71 (94) 98 08/10/20 04:11 72 08/10/20 04:11 35 08/10/20 03:20 73 22 35 08/10/20 02:00 Mechanical Ventilator 08/10/20 00:00 98.2 87 30 139/59 (85) 96 08/09/20 23:00 89 36 35 08/09/20 20:01 35 08/09/20 20:00 95 08/09/20 20:00 98.1 68 19 139/73 (95) 96 08/09/20 20:00 Mechanical Ventilator 08/09/20 19:20 73 22 35 08/09/20 16:00 67 08/09/20 16:00 35 08/09/20 16:00 98.1 68 19 139/73 (95) 96 08/09/20 16:00 Mechanical Ventilator 08/09/20 15:10 71 26 35 08/09/20 12:00 Mechanical Ventilator 08/09/20 12:00 69 08/09/20 12:00 97.9 69 22 143/74 (97) 97 08/09/20 12:00 35 08/09/20 11:10 68 20 35 Height (Feet): 5 Height (Inches): 11.00 Weight (Pounds): 180 Respiratory/Chest: lungs clear Cardiovascular: normal rate, regular rhythm, no gallop/murmur Abdomen: soft, non tender, other - GT Extremities: other - + edema, right arm PICC Laboratory Tests Test 08/09/20 11:20 08/09/20 12:10 08/09/20 17:45 08/10/20 00:22 Prothrombin Time 12.3 SEC (9.30-11.50) H Prothromb Time International Ratio 1.1 (0.9-1.1) Activated Partial Thromboplast Time 28 SEC (23-33) POC Whole Blood Glucose 213 MG/DL (74-106) H 194 MG/DL (74-106) H 209 MG/DL (74-106) H Test 08/10/20 05:40 08/10/20 06:00 POC Whole Blood Glucose 212 MG/DL (74-106) H White Blood Count 9.7 K/UL (4.8-10.8) Red Blood Count 3.29 M/UL (4.70-6.10) L Hemoglobin 9.1 G/DL (14.2-18.0) L Hematocrit 27.4 % (42.0-52.0) L Mean Corpuscular Volume 83 FL (80-99) Mean Corpuscular Hemoglobin 27.7 PG (27.0-31.0) Mean Corpuscular Hemoglobin Concent 33.2 G/DL (32.0-36.0) Red Cell Distribution Width 19.3 % (11.6-14.8) H Platelet Count 339 K/UL (150-450) Mean Platelet Volume 8.4 FL (6.5-10.1) Neutrophils (%) (Auto) 60.8 % (45.0-75.0) Lymphocytes (%) (Auto) 24.6 % (20.0-45.0) Monocytes (%) (Auto) 4.9 % (1.0-10.0) Eosinophils (%) (Auto) 9.0 % (0.0-3.0) H Basophils (%) (Auto) 0.6 % (0.0-2.0) Sodium Level 140 MMOL/L (136-145) Potassium Level 3.8 MMOL/L (3.5-5.1) Chloride Level 106 MMOL/L (98-107) Carbon Dioxide Level 28 MMOL/L (21-32) Anion Gap 6 mmol/L (5-15) Blood Urea Nitrogen 15 mg/dL (7-18) Creatinine 1.1 MG/DL (0.55-1.30) Estimat Glomerular Filtration Rate > 60 mL/min (>60) Glucose Level 227 MG/DL (74-106) H Calcium Level 7.6 MG/DL (8.5-10.1) L Magnesium Level 1.9 MG/DL (1.8-2.4) Total Bilirubin 0.3 MG/DL (0.2-1.0) Aspartate Amino Transf (AST/SGOT) 26 U/L (15-37) Alanine Aminotransferase (ALT/SGPT) 13 U/L (12-78) Alkaline Phosphatase 84 U/L (46-116) Total Protein 8.5 G/DL (6.4-8.2) H Albumin 1.6 G/DL (3.4-5.0) L Globulin 6.9 g/dL Albumin/Globulin Ratio 0.2 (1.0-2.7) L Current Medications Medications (Trade) Dose Ordered Sig/Derrick Route PRN Reason Start Time Stop Time Status Last Admin Dose Admin Acetaminophen (Tylenol) 650 mg Q4H PRN NG For Pain 08/08/20 20:30 09/07/20 20:29 08/08/20 21:16 Acetaminophen (Tylenol) 650 mg Q4H PRN RECTAL Mild Pain (Pain Scale 1-3) 07/28/20 21:15 08/27/20 21:14 08/03/20 21:11 Acetaminophen (Tylenol) 650 mg Q6H PRN GT Temp >100.5 08/02/20 12:45 09/01/20 12:44 08/08/20 11:46 Ascorbic Acid (Vitamin C) 250 mg TWICE A DAY ORAL 08/09/20 18:00 09/08/20 17:59 08/10/20 09:05 Chlorhexidine Gluconate (Gwendolyn-Hex 2%) 1 applic DAILY@1999 TOPIC 07/30/20 20:00 10/28/20 19:59 08/09/20 20:00 Clonidine HCl (Catapres Tab) 0.1 mg Q4H PRN ORAL For High Blood Pressure 07/28/20 21:15 10/26/20 21:14 08/06/20 17:37 Dextrose (Dextrose 50%) 25 ml Q30M PRN IV Hypoglycemia 08/02/20 12:45 10/31/20 12:44 Dextrose (Dextrose 50%) 50 ml Q30M PRN IV Hypoglycemia 08/02/20 12:45 10/31/20 12:44 Furosemide (Lasix) 40 mg DAILY IV 08/08/20 11:30 09/07/20 11:29 08/10/20 09:05 Insulin Aspart (NovoLOG) per nurse, pt now on g-t... Q6HR SUBQ 08/02/20 12:00 10/31/20 11:59 08/10/20 06:05 Levetiracetam 100 ml @ 400 mls/hr Q12HR IVPB 07/28/20 21:15 10/26/20 21:14 08/10/20 09:06 Magnesium Hydroxide (Mom) 30 ml DAILYPRN PRN GT Constipation 08/05/20 21:45 09/04/20 21:44 08/05/20 22:06 Pantoprazole (Protonix) 40 mg DAILY IVP 07/29/20 09:00 08/28/20 08:59 08/10/20 09:06 Rosalinda Guerrero MD Aug 10, 2020 11:16
[2020-08-10 12:00] VITALS: BP 120/77
--- NOTE | 2020-08-10 12:00 | NUR ---
NURSE NOTES: oral /tracheal secretions suctioned freq,pt with large amount of secretions.
--- NOTE | 2020-08-10 13:17 | NUR ---
DISCHARGE PLANNING THORACENTESIS EXPECTED TO BE DONE TOMORROW NOW THAT CONSENT HAS BEEN SIGNED
--- NOTE | 2020-08-10 14:59 | NUR ---
NURSE NOTES: Pulled up and repositioned,turned to sides,
--- NOTE | 2020-08-10 15:59 | Surgery Progress Note ---
Surgery Progress Note Subjective Symptoms: improved, tolerating diet, passing flatus, BM Objective Last 24 Hour Vital Signs Date Time Temp Pulse Resp B/P (MAP) Pulse Ox O2 Delivery O2 Flow Rate FiO2 08/10/20 12:00 71 08/10/20 12:00 98.1 68 20 120/77 (91) 98 08/10/20 12:00 35 08/10/20 11:12 72 24 35 08/10/20 08:00 35 08/10/20 07:52 71 08/10/20 07:42 97.9 65 22 152/76 (101) 100 08/10/20 07:23 66 18 35 08/10/20 04:15 98.2 80 20 141/71 (94) 98 08/10/20 04:11 72 08/10/20 04:11 35 08/10/20 03:20 73 22 35 08/10/20 02:00 Mechanical Ventilator 08/10/20 00:00 98.2 87 30 139/59 (85) 96 08/09/20 23:00 89 36 35 08/09/20 20:01 35 08/09/20 20:00 95 08/09/20 20:00 98.1 68 19 139/73 (95) 96 08/09/20 20:00 Mechanical Ventilator 08/09/20 19:20 73 22 35 08/09/20 16:00 67 08/09/20 16:00 35 08/09/20 16:00 98.1 68 19 139/73 (95) 96 08/09/20 16:00 Mechanical Ventilator I&O Intake and Output 08/09/20 08/10/20 18:59 06:59 Intake Total 720 ml 710 ml Output Total 500 ml 1700 ml Balance 220 ml -990 ml Free Water 200 ml 120 ml IV Total 100 ml Tube Feeding 280 ml 490 ml Other 240 ml Output Urine Total 500 ml 1700 ml # Bowel Movements 1 Dressing: saturated Cardiovascular: RSR Respiratory: decreased breath sounds Abdomen: non-tender, present bowel sounds, non-distended Extremities: no edema, no tenderness, no cyanosis Laboratory Tests Test 08/09/20 17:45 08/10/20 00:22 08/10/20 05:40 08/10/20 06:00 POC Whole Blood Glucose 194 MG/DL (74-106) H 209 MG/DL (74-106) H 212 MG/DL (74-106) H White Blood Count 9.7 K/UL (4.8-10.8) Red Blood Count 3.29 M/UL (4.70-6.10) L Hemoglobin 9.1 G/DL (14.2-18.0) L Hematocrit 27.4 % (42.0-52.0) L Mean Corpuscular Volume 83 FL (80-99) Mean Corpuscular Hemoglobin 27.7 PG (27.0-31.0) Mean Corpuscular Hemoglobin Concent 33.2 G/DL (32.0-36.0) Red Cell Distribution Width 19.3 % (11.6-14.8) H Platelet Count 339 K/UL (150-450) Mean Platelet Volume 8.4 FL (6.5-10.1) Neutrophils (%) (Auto) 60.8 % (45.0-75.0) Lymphocytes (%) (Auto) 24.6 % (20.0-45.0) Monocytes (%) (Auto) 4.9 % (1.0-10.0) Eosinophils (%) (Auto) 9.0 % (0.0-3.0) H Basophils (%) (Auto) 0.6 % (0.0-2.0) Sodium Level 140 MMOL/L (136-145) Potassium Level 3.8 MMOL/L (3.5-5.1) Chloride Level 106 MMOL/L (98-107) Carbon Dioxide Level 28 MMOL/L (21-32) Anion Gap 6 mmol/L (5-15) Blood Urea Nitrogen 15 mg/dL (7-18) Creatinine 1.1 MG/DL (0.55-1.30) Estimat Glomerular Filtration Rate > 60 mL/min (>60) Glucose Level 227 MG/DL (74-106) H Calcium Level 7.6 MG/DL (8.5-10.1) L Magnesium Level 1.9 MG/DL (1.8-2.4) Total Bilirubin 0.3 MG/DL (0.2-1.0) Aspartate Amino Transf (AST/SGOT) 26 U/L (15-37) Alanine Aminotransferase (ALT/SGPT) 13 U/L (12-78) Alkaline Phosphatase 84 U/L (46-116) Total Protein 8.5 G/DL (6.4-8.2) H Albumin 1.6 G/DL (3.4-5.0) L Globulin 6.9 g/dL Albumin/Globulin Ratio 0.2 (1.0-2.7) L Test 08/10/20 11:22 POC Whole Blood Glucose 226 MG/DL (74-106) H Plan Problems: (1) Sepsis Assessment & Plan: 75M. cxr with possible free air. ct done and noted. abd distended. exam limited leukocytosis abnormal labs improving with fluids trach malfunction now improved on vent support cont current care will monitor and follow with recs PICC line trend labs transfuse prbc prn trach leak needs trach change trach changed cxr noted infiltrates labs improving d/c planning cont abx as per ID ABDOMEN: Liver: Unremarkable. Gallbladder and bile ducts: Unremarkable. No calcified stones. Pancreas: Unremarkable. Spleen: Unremarkable. Adrenals: Unremarkable. Kidneys and ureters: Unremarkable. No hydronephrosis. Stomach and bowel: Mildly thickened sigmoid colon which may be underdistention, chronic, colitis, versus lesion. Colonic air-distention which may be ileus. No bowel obstruction or diverticulitis. PELVIS: Appendix: No findings to suggest acute appendicitis. Bladder: Thickened bladder which may be chronic, cystitis, versus lesion. Vera catheter in the bladder. Reproductive: Unremarkable as visualized. ABDOMEN and PELVIS: Intraperitoneal space: No free air. Bones/joints: No acute fracture. Soft tissues: Unremarkable. Vasculature: Unremarkable. Lymph nodes: Unremarkable. Tubes, lines and devices: Gastrostomy tube in the stomach. IMPRESSION: 1. Mildly thickened sigmoid colon which may be underdistention, chronic, colitis, versus lesion. Colonic air-distention which may be ileus. No bowel obstruction or diverticulitis. 2. Thickened bladder which may be chronic, cystitis, versus lesion. 3. Bibasilar infiltrates. Small left pleural effusion. There is a tracheostomy which appears appropriately positioned. There are bilateral moderate to large pleural effusions. There is extensive parenchymal disease involving the right upper lobe and right lower lobe. Some of this has a possible honeycomb appearance, versus intralobular septal thickening in areas of air- trapping. There are other areas of denser consolidation noted. A calcified granuloma is seen in the superior segment of the right lower lobe. Dense consolidation is seen involving much of the left upper lobe. There is considerable volume loss of the left lower lobe, partly due to cardiomegaly and probably due to the pleural effusions. The heart is mildly enlarged. There is no pericardial effusion. The main pulmonary artery is dilated, measuring 4 cm in diameter. Calcified granulomatous lymph nodes are seen in the right pulmonary hilum and subcarinal region. No mediastinal or hilar mass or adenopathy is demonstrated. No axillary or chest wall mass or adenopathy. There is unilateral gynecomastia on the left. There is a right arm PICC, tip in the mid superior vena cava. There is some edema of the left chest wall and upper abdominal wall. The included upper abdominal viscera demonstrate a gastrostomy tube in place. Impression: Bilateral moderate to large pleural effusions Extensive bilateral parenchymal disease. This may indicate pulmonary edema, bilateral pneumonia, and there may be a significant chronic component as well Evidence of old granulomatous disease within the right lung and hilar and mediastinal lymph nodes Cardiomegaly Dilated main pulmonary artery, likely indicative of pulmonary arterial hypertension DAILY ESTIMATED NEEDS: Needs based on Critical care, wound INDEPENDENT VIDEO [employer]ODUCER TF 82kg 20-28 kcals/kg 8282-8336 total kcals 1.25-2 g protein/kg 103-164 g total protein 25-30 mL/kg 9076-4801 total fluid mLs NUTRITION DIAGNOSIS: * Swallowing difficulty R/T respiratory status, dysphagia as evidenced by trach/vent dep, PEG dep. CURRENT TF: Osmolite 1.5 @20 ml/hr ENTERAL NUTRITION RECOMMENDATIONS: Glucerna 1.5 @ 50ml/hr x 24 hrs + Prosource 1pkt QD to provide 1200ml, 1800kcal, 99g +11g prot, 911ml free water * As medically able, rec GLUCERNA 1.5. Start @20ml/hr for 6 hrs, advance as tolerated 10ml/hr q4-6 hrs to goal. * Once TF well tolerated at goal, add Prosource 1pkt QD to meet est protein needs * HOB over 30 degrees/ water flush per MD ADDITIONAL RECOMMENDATIONS: * Re-calibrated bedcale wt for accurate CBW * Monitor lytes closely krystle w/ Lasix, replete as needed * Rec wound care eval -> Stage 2, add Vit C 250mg QD + MANJIT BID * Close BG monitoring: previously w/ hypoglycemic episode, now BGs 200's -> Rec TF change to carb controlled TF * TF rec as above . (2) Pneumonia (3) Free intraperitoneal air Assessment & Plan: Apparent lucency underlying the right hemidiaphragm. This may potentially be artifactual. Recommend correlation with CT of the abdomen to exclude the possibility of free peritoneal air, particularly if there is a history of abdominal pain. Extensive interstitial and alveolar infiltrates concerning for multifocal pneumonia. Possibility of underlying chronic interstitial/chronic lung disease and scarring can also be considered. Indwelling tracheostomy tube. (4) Perforated abdominal viscus Assessment & Plan: CT reviewed no free air artifact on cxr abd distended cannot tell tender given condition will monitor (5) Decubitus skin ulcer (6) Hyperglycemia (7) Leukocytosis (8) GIB (gastrointestinal bleeding) (9) POPPY (acute kidney injury) (10) Dyspnea (11) Respiratory distress Assessment & Plan: trach changed 6f mark stable now Abdoul Lucas Aug 10, 2020 15:58
[2020-08-10 16:00] VITALS: BP 149/88
[2020-08-10] MEDS: Ascorbic Acid 500mg tab GT SCH (17:50)
--- NOTE | 2020-08-10 18:00 | NUR ---
NURSE NOTES: Pt stable no resp distress presented during the shift .
--- NOTE | 2020-08-10 19:10 | NUR ---
NURSE HAND-OFF REPORT: Important Events on Shift:N/A Patient Status: N/A Diet: Glucerna 1.5 at 50 ml/hr GT Pending Orders: N/A Pending Results/Labs:N/AN/A Pending MD notification:N/A Latest Vital Signs: Temperature 98.4 , Pulse 83 , B/P 149 /88 , Respiratory Rate 28 , O2 SAT 98 , Mechanical Ventilator, O2 Flow Rate . Vital Sign Comment: stable EKG Rhythm: Sinus Rhythm Rhythm change?: N MD Notified?: - MD Response: Latest Ackerman Fall Score: 70 Fall Risk: High Risk Safety Measures: Call light Within Reach, Bed Alarm Zone 1, Side Rails Side Rails x3, Bed position Low and Locked. Fall Precautions: Yellow Socks Yellow Gown Door Sign Report given to JOSE Nunez RN..
--- NOTE | 2020-08-10 19:15 | NUR ---
NURSE NOTES: Received report from MANNY Koch. PT asleep in bed, obtunded, responds to deep tactile stimulation,afebrile and has no respiratory distress noted.vent to trache shiley 6, AC 16, tidal volume 500, Fi O2 35%, Peep 5 saturating at 100%. On Glucerna 1.5 at 50cc/hr via GT intact, infusing well without any sediments or residuals. With right upper arm PICC Line intact, patent and asymptomatic. dressing is dry and clean also. With FC to UB draining well with dilcia yellow urine. Needs were attended. Bed rails are up and padded. bed wheels are locked. Continue plan of care
[2020-08-10 20:00] VITALS: BP 126/70
[2020-08-10] MEDS: Dyna-Hex 2% Top Sol 2oz TOPIC SCH (20:31)
[2020-08-11] VITALS: BP 123/67
[2020-08-11 04:00] VITALS: BP 134/75
[2020-08-11] MEDS: NovoLOG Insulin Flexpen SUBQ SCH ×4 (05:30→23:08)
--- NOTE | 2020-08-11 07:10 | NUR ---
NURSE HAND-OFF REPORT: Important Events on Shift: low grade temp Patient Status: stable Diet: Glucerna at 50cc/hr Pending Orders: Thoracentesis Pending Results/Labs:n Pending MD notification:n Latest Vital Signs: Temperature 99.5 , Pulse 96 , B/P 134 /75 , Respiratory Rate 19 , O2 SAT 98 , Mechanical Ventilator, O2 Flow Rate . Vital Sign Comment: n EKG Rhythm: Sinus Rhythm Rhythm change?: N MD Notified?: - MD Response: Latest Ackerman Fall Score: 70 Fall Risk: High Risk Safety Measures: Call light Within Reach, Bed Alarm Zone 1, Side Rails Side Rails x3, Bed position Low and Locked. Fall Precautions: Yellow Socks Yellow Gown Door Sign Report given to Migue Gongora RN/ MANNY Stone.
--- NOTE | 2020-08-11 07:40 | NUR ---
NURSE NOTES: Received report from MANNY GARCIA. Patient is on bed, no signs of grimacing and distress noted. Patient is on vent-trach S6 with setting of AC16, Vt 500, FiO2 35%, PEEP 5, tolerating well. Patient is has a GT patent, intact, and running feedings Glucerna 1.5 50cc/hr, patient is tolerating the feeding well. patient has a R UA PICC line 2 lumen, patent, intact, no signs of infiltration. On [place] catheter patent, intact, draining light dilcia uriner. HOB is elevated, bed is locked, on lowest position, side rails up, side rails padded (for seizure precaution), and call light within reach. Patient will continue to be monitored.
[2020-08-11 07:53] VITALS: BP 116/71
[2020-08-11] MEDS: levETIRAcetam 1,000mg/NS100ml 100 ML IVPB SCH (08:14)
[2020-08-11] MEDS: Ascorbic Acid 500mg tab GT SCH ×2 (08:15→17:22)
--- NOTE | 2020-08-11 09:20 | Critical Care Progress Note ---
Assessment/Plan Assessment/Plan IMPRESSION: probable sepsis, hyponatremia, acute renal failure, chronic respiratory failure, thickened colon diffuse pneumonia, elevated lactic dehydrogenase, abdominal distention, severe protein-calorie malnutrition, seizure disorder. pneumonia, anemia, diffuse pulmonary infiltrates with bilateral pleural effusions, likely 3rd spacing PLAN tap for today monitor blood sugars repeat CXR- after tap IV antibiotics respiratory care Ventilatory support SNF meds supportive care monitor for seizures monitor residuals no wean planned oxygen therapy prognosis critical dc planning if able taper oxygen as able impression, plan, and exam edited and reviewed in detail care discussed with pot reliner - Subjective Interval Events: care noted on vent ROS Limited/Unobtainable: Yes Condition: critical EKG Rhythm: Sinus Rhythm I&O: Intake and Output 08/10/20 08/11/20 19:00 07:00 Intake Total 890 ml 950 ml Output Total 1900 ml 900 ml Balance -1010 ml 50 ml Free Water 100 ml 250 ml IV Total 100 ml Tube Feeding 550 ml 600 ml Other 240 ml Output Urine Total 1900 ml 900 ml Critical Care - Objective Last 24 Hour Vital Signs Date Time Temp Pulse Resp B/P (MAP) Pulse Ox O2 Delivery O2 Flow Rate FiO2 08/11/20 08:00 30 08/11/20 08:00 79 08/11/20 08:00 Mechanical Ventilator 08/11/20 07:53 99.5 82 19 116/71 (86) 97 08/11/20 07:22 76 20 35 08/11/20 04:00 35 08/11/20 04:00 Mechanical Ventilator 08/11/20 04:00 96 08/11/20 04:00 99.5 74 19 134/75 (94) 98 08/11/20 03:14 78 20 35 08/11/20 00:07 80 08/11/20 00:00 99.9 74 19 123/67 (85) 98 08/11/20 00:00 Mechanical Ventilator 08/11/20 00:00 35 08/10/20 22:22 77 29 35 08/10/20 20:00 Mechanical Ventilator 08/10/20 20:00 35 08/10/20 20:00 98.2 78 19 126/70 (88) 98 08/10/20 19:50 77 08/10/20 19:12 83 28 35 08/10/20 16:00 35 08/10/20 16:00 80 08/10/20 16:00 98.4 80 19 149/88 (108) 98 08/10/20 15:22 72 21 35 08/10/20 12:00 71 08/10/20 12:00 98.1 68 20 120/77 (91) 98 08/10/20 12:00 35 08/10/20 11:12 72 24 35 Labs: Labs Test 08/08/20 11:41 08/08/20 17:04 08/09/20 00:11 08/09/20 03:30 POC Whole Blood Glucose 202 MG/DL (74-106) 234 MG/DL (74-106) White Blood Count 10.4 K/UL (4.8-10.8) Red Blood Count 3.22 M/UL (4.70-6.10) Hemoglobin 9.0 G/DL (14.2-18.0) Hematocrit 26.7 % (42.0-52.0) Mean Corpuscular Volume 83 FL (80-99) Mean Corpuscular Hemoglobin 27.9 PG (27.0-31.0) Mean Corpuscular Hemoglobin Concent 33.7 G/DL (32.0-36.0) Red Cell Distribution Width 19.3 % (11.6-14.8) Platelet Count 338 K/UL (150-450) Mean Platelet Volume 8.1 FL (6.5-10.1) Neutrophils (%) (Auto) 63.0 % (45.0-75.0) Lymphocytes (%) (Auto) 24.0 % (20.0-45.0) Monocytes (%) (Auto) 4.9 % (1.0-10.0) Eosinophils (%) (Auto) 7.5 % (0.0-3.0) Basophils (%) (Auto) 0.7 % (0.0-2.0) Sodium Level 142 MMOL/L (136-145) Potassium Level 3.3 MMOL/L (3.5-5.1) Chloride Level 108 MMOL/L (98-107) Carbon Dioxide Level 30 MMOL/L (21-32) Anion Gap 4 mmol/L (5-15) Blood Urea Nitrogen 12 mg/dL (7-18) Creatinine 1.0 MG/DL (0.55-1.30) Estimat Glomerular Filtration Rate > 60 mL/min (>60) Glucose Level 192 MG/DL (74-106) Calcium Level 7.4 MG/DL (8.5-10.1) Magnesium Level 2.0 MG/DL (1.8-2.4) Total Bilirubin 0.3 MG/DL (0.2-1.0) Aspartate Amino Transf (AST/SGOT) 26 U/L (15-37) Alanine Aminotransferase (ALT/SGPT) 11 U/L (12-78) Alkaline Phosphatase 77 U/L (46-116) Pro-B-Type Natriuretic Peptide 2194 pg/mL (0-125) Total Protein 8.4 G/DL (6.4-8.2) Albumin 1.6 G/DL (3.4-5.0) Globulin 6.8 g/dL Albumin/Globulin Ratio 0.2 (1.0-2.7) Test 08/09/20 05:27 08/09/20 11:20 08/09/20 12:10 08/09/20 17:45 POC Whole Blood Glucose 221 MG/DL (74-106) 213 MG/DL (74-106) 194 MG/DL (74-106) Prothrombin Time 12.3 SEC (9.30-11.50) Prothromb Time International Ratio 1.1 (0.9-1.1) Activated Partial Thromboplast Time 28 SEC (23-33) Test 08/10/20 00:22 08/10/20 05:40 08/10/20 06:00 08/10/20 11:22 POC Whole Blood Glucose 209 MG/DL (74-106) 212 MG/DL (74-106) 226 MG/DL (74-106) White Blood Count 9.7 K/UL (4.8-10.8) Red Blood Count 3.29 M/UL (4.70-6.10) Hemoglobin 9.1 G/DL (14.2-18.0) Hematocrit 27.4 % (42.0-52.0) Mean Corpuscular Volume 83 FL (80-99) Mean Corpuscular Hemoglobin 27.7 PG (27.0-31.0) Mean Corpuscular Hemoglobin Concent 33.2 G/DL (32.0-36.0) Red Cell Distribution Width 19.3 % (11.6-14.8) Platelet Count 339 K/UL (150-450) Mean Platelet Volume 8.4 FL (6.5-10.1) Neutrophils (%) (Auto) 60.8 % (45.0-75.0) Lymphocytes (%) (Auto) 24.6 % (20.0-45.0) Monocytes (%) (Auto) 4.9 % (1.0-10.0) Eosinophils (%) (Auto) 9.0 % (0.0-3.0) Basophils (%) (Auto) 0.6 % (0.0-2.0) Sodium Level 140 MMOL/L (136-145) Potassium Level 3.8 MMOL/L (3.5-5.1) Chloride Level 106 MMOL/L (98-107) Carbon Dioxide Level 28 MMOL/L (21-32) Anion Gap 6 mmol/L (5-15) Blood Urea Nitrogen 15 mg/dL (7-18) Creatinine 1.1 MG/DL (0.55-1.30) Estimat Glomerular Filtration Rate > 60 mL/min (>60) Glucose Level 227 MG/DL (74-106) Calcium Level 7.6 MG/DL (8.5-10.1) Magnesium Level 1.9 MG/DL (1.8-2.4) Total Bilirubin 0.3 MG/DL (0.2-1.0) Aspartate Amino Transf (AST/SGOT) 26 U/L (15-37) Alanine Aminotransferase (ALT/SGPT) 13 U/L (12-78) Alkaline Phosphatase 84 U/L (46-116) Total Protein 8.5 G/DL (6.4-8.2) Albumin 1.6 G/DL (3.4-5.0) Globulin 6.9 g/dL Albumin/Globulin Ratio 0.2 (1.0-2.7) Test 08/10/20 17:58 08/10/20 23:07 08/11/20 05:29 POC Whole Blood Glucose 247 MG/DL (74-106) 217 MG/DL (74-106) 267 MG/DL (74-106) Objective: GENERAL: An ill-appearing male, chronically ill. HEENT: Negative. Tracheostomy midline. The patient is with chronic tongue protrusion. LUNGS: Coarse breath sounds. moderate breath sounds CARDIAC: S1, S2. Regular rate and rhythm. ABDOMEN: Distended. Poor bowel sounds. EXTREMITIES: No cyanosis or clubbing. There is mild edema. NEUROLOGIC: Poorly responsive to pain. Accucheck: 267 Bakari Montanez MD Aug 11, 2020 09:20
--- NOTE | 2020-08-11 10:00 | NUR ---
NURSE NOTES: Obtained telephone consent for ultrasound aspiration injection thoracentesis, ordered by Dr. Montanez, spoke with son Sean Paiz . MANNY Zamudio second witness. Consent placed in chart. Will continue to monitor patient.
--- NOTE | 2020-08-11 11:47 | Infectious Diseases Prog Note ---
Assessment/Plan Assessment/Plan antibiotics : none A 1. acenitobacter pneumonia s/p rx COVID 19 negative 2. respiratory failure 3. colitis 4. UTI 5. diabetes mellitus 6. hypertension 7. COPD P 1. observe off antibiotics Subjective ROS Limited/Unobtainable: Yes Allergies: Coded Allergies: No Known Allergies (Unverified , 07/04/18) Objective Last 24 Hour Vital Signs Date Time Temp Pulse Resp B/P (MAP) Pulse Ox O2 Delivery O2 Flow Rate FiO2 08/11/20 08:00 30 08/11/20 08:00 79 08/11/20 08:00 Mechanical Ventilator 08/11/20 07:53 99.5 82 19 116/71 (86) 97 08/11/20 07:22 76 20 35 08/11/20 04:00 35 08/11/20 04:00 Mechanical Ventilator 08/11/20 04:00 96 08/11/20 04:00 99.5 74 19 134/75 (94) 98 08/11/20 03:14 78 20 35 08/11/20 00:07 80 08/11/20 00:00 99.9 74 19 123/67 (85) 98 08/11/20 00:00 Mechanical Ventilator 08/11/20 00:00 35 08/10/20 22:22 77 29 35 08/10/20 20:00 Mechanical Ventilator 08/10/20 20:00 35 08/10/20 20:00 98.2 78 19 126/70 (88) 98 08/10/20 19:50 77 08/10/20 19:12 83 28 35 08/10/20 16:00 35 08/10/20 16:00 80 08/10/20 16:00 98.4 80 19 149/88 (108) 98 08/10/20 15:22 72 21 35 08/10/20 12:00 71 08/10/20 12:00 98.1 68 20 120/77 (91) 98 08/10/20 12:00 35 Height (Feet): 5 Height (Inches): 11.00 Weight (Pounds): 180 HEENT: status post trach Respiratory/Chest: lungs clear Cardiovascular: normal rate, regular rhythm, no gallop/murmur Abdomen: soft, non tender, other - GT Extremities: other - + edema, right arm PICC Laboratory Tests Test 08/10/20 17:58 08/10/20 23:07 08/11/20 05:29 08/11/20 11:05 POC Whole Blood Glucose 247 MG/DL (74-106) H 217 MG/DL (74-106) H 267 MG/DL (74-106) H 210 MG/DL (74-106) H Current Medications Medications (Trade) Dose Ordered Sig/Derrick Route PRN Reason Start Time Stop Time Status Last Admin Dose Admin Acetaminophen (Tylenol) 650 mg Q4H PRN NG For Pain 08/08/20 20:30 09/07/20 20:29 08/08/20 21:16 Acetaminophen (Tylenol) 650 mg Q4H PRN RECTAL Mild Pain (Pain Scale 1-3) 07/28/20 21:15 08/27/20 21:14 08/03/20 21:11 Acetaminophen (Tylenol) 650 mg Q6H PRN GT Temp >100.5 08/02/20 12:45 09/01/20 12:44 08/08/20 11:46 Ascorbic Acid (Vitamin C) 250 mg TWICE A DAY GT 08/10/20 18:00 09/08/20 17:59 08/11/20 08:15 Chlorhexidine Gluconate (Gwendolyn-Hex 2%) 1 applic DAILY@1999 TOPIC 07/30/20 20:00 10/28/20 19:59 08/10/20 20:31 Clonidine HCl (Catapres Tab) 0.1 mg Q4H PRN GT For High Blood Pressure 08/10/20 13:15 10/26/20 21:14 Dextrose (Dextrose 50%) 25 ml Q30M PRN IV Hypoglycemia 08/02/20 12:45 10/31/20 12:44 Dextrose (Dextrose 50%) 50 ml Q30M PRN IV Hypoglycemia 08/02/20 12:45 10/31/20 12:44 Furosemide (Lasix) 40 mg DAILY IV 08/08/20 11:30 09/07/20 11:29 08/11/20 08:15 Insulin Aspart (NovoLOG) per nurse, pt now on g-t... Q6HR SUBQ 08/02/20 12:00 10/31/20 11:59 08/11/20 11:36 Lansoprazole (Prevacid) 30 mg DAILY GT 08/11/20 09:00 09/10/20 08:59 08/11/20 08:15 Levetiracetam 100 ml @ 400 mls/hr Q12HR IVPB 07/28/20 21:15 10/26/20 21:14 08/11/20 08:14 Magnesium Hydroxide (Mom) 30 ml DAILYPRN PRN GT Constipation 08/05/20 21:45 09/04/20 21:44 08/05/20 22:06 Rosalinda Guerrero MD Aug 11, 2020 11:47
[2020-08-11 12:00] VITALS: BP 127/70
--- NOTE | 2020-08-11 12:00 | NUR ---
NURSE NOTES: Per Dr. Montanez, send body fluids from thoracentesis for culture and gram stain. Order entered, noted, and carried out. Will continue to monitor patient.
--- NOTE | 2020-08-11 14:59 | General Progress Note ---
Subjective ROS Limited/Unobtainable: Yes Constitutional: Reports: malaise, weakness HEENT: Reports: no symptoms Cardiovascular: Reports: edema Respiratory: Reports: cough, shortness of breath, sputum Gastrointestinal/Abdominal: Reports: difficulty swallowing, nausea Genitourinary: Reports: no symptoms Neurologic/Psychiatric: Reports: pre-existing deficit, seizure Endocrine: Reports: no symptoms Hematologic/Lymphatic: Reports: anemia Allergies: Coded Allergies: No Known Allergies (Unverified , 07/04/18) All Systems: reviewed and negative except above Subjective no events. no real change. less congested. remains on the vent. poorly responsive, tolerating feed. no reports of szs. awaiting tap Objective Last 24 Hour Vital Signs Date Time Temp Pulse Resp B/P (MAP) Pulse Ox O2 Delivery O2 Flow Rate FiO2 08/11/20 12:00 99 08/11/20 12:00 Mechanical Ventilator 08/11/20 12:00 30 08/11/20 12:00 98.8 84 26 127/70 (89) 97 08/11/20 10:53 79 20 35 08/11/20 08:00 30 08/11/20 08:00 79 08/11/20 08:00 Mechanical Ventilator 08/11/20 07:53 99.5 82 19 116/71 (86) 97 08/11/20 07:22 76 20 35 08/11/20 04:00 35 08/11/20 04:00 Mechanical Ventilator 08/11/20 04:00 96 08/11/20 04:00 99.5 74 19 134/75 (94) 98 08/11/20 03:14 78 20 35 08/11/20 00:07 80 08/11/20 00:00 99.9 74 19 123/67 (85) 98 08/11/20 00:00 Mechanical Ventilator 08/11/20 00:00 35 08/10/20 22:22 77 29 35 08/10/20 20:00 Mechanical Ventilator 08/10/20 20:00 35 08/10/20 20:00 98.2 78 19 126/70 (88) 98 08/10/20 19:50 77 08/10/20 19:12 83 28 35 08/10/20 16:00 35 08/10/20 16:00 80 08/10/20 16:00 98.4 80 19 149/88 (108) 98 08/10/20 15:22 72 21 35 Intake and Output 08/10/20 08/11/20 19:00 07:00 Intake Total 890 ml 950 ml Output Total 1900 ml 900 ml Balance -1010 ml 50 ml Free Water 100 ml 250 ml IV Total 100 ml Tube Feeding 550 ml 600 ml Other 240 ml Output Urine Total 1900 ml 900 ml Laboratory Tests 08/10/20 17:58: POC Whole Blood Glucose 247H 08/10/20 23:07: POC Whole Blood Glucose 217H 08/11/20 05:29: POC Whole Blood Glucose 267H 08/11/20 11:05: POC Whole Blood Glucose 210H Height (Feet): 5 Height (Inches): 11.00 Weight (Pounds): 180 Objective General Appearance: WD/WN, lethargic, confused EENT: PERRL/EOMI Neck: non-tender, normal alignment Cardiovascular: normal peripheral pulses, normal rate Respiratory/Chest: chest wall non-tender, lungs clear, normal breath sounds, no respiratory distress Abdomen: normal bowel sounds, non tender, soft, no organomegaly Extremities: normal range of motion Neurologic: disoriented, unresponsive, aphasia Skin: normal pigmentation Assessment/Plan Problem List: (1) Sepsis ICD Codes: A41.9 - Sepsis, unspecified organism SNOMED: 82337992 (2) Pneumonia ICD Codes: J18.9 - Pneumonia, unspecified organism SNOMED: 128116398 (3) Leukocytosis ICD Codes: D72.829 - Elevated white blood cell count, unspecified SNOMED: 738788869, 905997304 (4) POPPY (acute kidney injury) ICD Codes: N17.9 - Acute kidney failure, unspecified SNOMED: 4863511, 06527068 (5) Dyspnea ICD Codes: R06.00 - Dyspnea, unspecified SNOMED: 661794219 (6) Respiratory distress ICD Codes: R06.03 - Acute respiratory distress SNOMED: 313730277 Status: stable, not improved Assessment/Plan: tube feeds. monitor residuals off ivf iv lasix thoracentesis today monitor off abx tube feeds monitor residuals vent resp rx suctioning sz rx poor alf prognosis Chano Galeana MD Aug 11, 2020 14:59
[2020-08-11 15:40] VITALS: BP 137/83
--- NOTE | 2020-08-11 15:43 | NUR ---
NURSE NOTES: Per glass installer technician, 650 ml was aspirated from left side from thoracentesis. body fluid sample sent to microbiology for culture. Noted. VS: 137/83, HR 78 bpm, 21 RR, Temp 98.2F axillary. Will continue to monitor patient.
--- NOTE | 2020-08-11 15:43 | NUR ---
CASE MANAGEMENT:REVIEW 08/11/20 SI: SEPSIS. PNA. BILATERAL PLEURAL EFF. TRACH/VENT 99.5 82 26 127/70 97% ON VENT SUPPORT W/35% FIO2 GLUCOSE+210 IS: IV KEPPRA Q12 IV LASIX QD VIT C GT BID : STEP DOWN UNIT DCP: FROM [facility] PLAN: THORACENTESIS ~ CULTURE FLUID CHEST XRAY
--- NOTE | 2020-08-11 16:32 | Pre-Procedure Note/Attestation ---
Pre-Procedure Note/Attestation Complete Prior to Procedure Planned Procedure: left Procedure Narrative: THoracentesis Indications for Procedure Pre-Operative Diagnosis: pleural effusion Attestation I attest that I discussed the nature of the procedure; its benefits; risks and complications; and alternatives (and the risks and benefits of such alternatives), prior to the procedure, with the patient (or the patient's legal service representative). I attest that, if there was a reasonable possibility of needing a blood nash sfusion, the patient (or the patient's legal service representative) was given the [facility] standardized written summary, pursuant to the Jeromy Xavier Blood Safety Act ([place] Health and Safety Code # 1645, as amended). I attest that I re-evaluated the patient just prior to the surgery and that there has been no change in the patient's H&P, except as documented below: Discussed by phone with pt's. Chaitanya Bain MD Aug 11, 2020 16:32
--- NOTE | 2020-08-11 16:33 | Brief Operative Note ---
Immediate Post Operative Note Operative Note Pre-op Diagnosis: pleural effusion Procedure: Thoracentesis Post-op Diagnosis: same as pre-op Anesthesia: local Specimen: none Complications: none Fluids: none Implant(s) used?: No Chaitanya Sheppard MD Aug 11, 2020 16:33
--- NOTE | 2020-08-11 17:26 | NUR ---
NURSE NOTES: Per kami Gonzalez to change Levetiracetem 1,000 mg IV Q12HR to Levetiracetem 1,000 mg G-tube Q12HR. Order entered, noted and carried out. Will continue to monitor patient.
--- NOTE | 2020-08-11 17:36 | Diagnostic Imaging Report ---
Indications: Pleural effusion Technique: Ultrasound used to localize optimal puncture site. Sterile prepping and draping left chest. Local anesthesia with 1% lidocaine. Under real-time ultrasound guidance, puncture pleural space using thoracentesis needle. Stylet removed. Catheter placed to vacuum bottle suction. Total 650 milliliters of fluid aspirated. Patient tolerated procedure well, without immediate complication. Findings: Followup sonography demonstrates complete resolution of pleural fluid. Impression: Successful ultrasound-guided thoracentesis, yielding 650 milliliters of fluid
--- NOTE | 2020-08-11 18:06 | Diagnostic Imaging Report ---
Indication: Postthoracentesis, cough Technique: One view of the chest Comparison: 08/05/2020 Findings: Bilateral right greater than left infiltrates appear unchanged. There is no pneumothorax. There is no residual pleural fluid. Tracheostomy again demonstrated. Right arm PICC again demonstrated Impression: No evidence of pneumothorax, status post thoracentesis Stable bilateral infiltrates
--- NOTE | 2020-08-11 18:51 | Surgery Progress Note ---
Surgery Progress Note Subjective Additional Comments tap this am comfortable o2 improved no n/v labs noted Objective Last 24 Hour Vital Signs Date Time Temp Pulse Resp B/P (MAP) Pulse Ox O2 Delivery O2 Flow Rate FiO2 08/11/20 16:00 80 08/11/20 16:00 Mechanical Ventilator 08/11/20 16:00 30 08/11/20 15:40 98.2 78 22 137/83 (101) 96 08/11/20 15:30 78 22 35 08/11/20 12:00 99 08/11/20 12:00 Mechanical Ventilator 08/11/20 12:00 30 08/11/20 12:00 98.8 84 26 127/70 (89) 97 08/11/20 10:53 79 20 35 08/11/20 08:00 30 08/11/20 08:00 79 08/11/20 08:00 Mechanical Ventilator 08/11/20 07:53 99.5 82 19 116/71 (86) 97 08/11/20 07:22 76 20 35 08/11/20 04:00 35 08/11/20 04:00 Mechanical Ventilator 08/11/20 04:00 96 08/11/20 04:00 99.5 74 19 134/75 (94) 98 08/11/20 03:14 78 20 35 08/11/20 00:07 80 08/11/20 00:00 99.9 74 19 123/67 (85) 98 08/11/20 00:00 Mechanical Ventilator 08/11/20 00:00 35 08/10/20 22:22 77 29 35 08/10/20 20:00 Mechanical Ventilator 08/10/20 20:00 35 08/10/20 20:00 98.2 78 19 126/70 (88) 98 08/10/20 19:50 77 08/10/20 19:12 83 28 35 I&O Intake and Output 0 08/10/20 08/11/20 19:00 07:00 Intake Total 890 ml 950 ml Output Total 1900 ml 900 ml Balance -1010 ml 50 ml Free Water 100 ml 250 ml IV Total 100 ml Tube Feeding 550 ml 600 ml Other 240 ml Output Urine Total 1900 ml 900 ml Dressing: saturated Cardiovascular: RSR Respiratory: decreased breath sounds Abdomen: distended, non-tender, present bowel sounds, decreased bowel sounds Extremities: no tenderness, no cyanosis Laboratory Tests Test 08/10/20 23:07 08/11/20 05:29 08/11/20 11:05 08/11/20 17:04 POC Whole Blood Glucose 217 MG/DL (74-106) H 267 MG/DL (74-106) H 210 MG/DL (74-106) H 224 MG/DL (74-106) H Plan Problems: (1) Sepsis Assessment & Plan: 75M. cxr with possible free air. ct done and noted. abd distended. exam limited leukocytosis abnormal labs improving with fluids trach malfunction now improved on vent support cont current care will monitor and follow with recs PICC line trend labs transfuse prbc prn trach leak needs trach change trach changed cxr noted infiltrates labs improving d/c planning cont abx as per ID ABDOMEN: Liver: Unremarkable. Gallbladder and bile ducts: Unremarkable. No calcified stones. Pancreas: Unremarkable. Spleen: Unremarkable. Adrenals: Unremarkable. Kidneys and ureters: Unremarkable. No hydronephrosis. Stomach and bowel: Mildly thickened sigmoid colon which may be underdistention, chronic, colitis, versus lesion. Colonic air-distention which may be ileus. No bowel obstruction or diverticulitis. PELVIS: Appendix: No findings to suggest acute appendicitis. Bladder: Thickened bladder which may be chronic, cystitis, versus lesion. Vera catheter in the bladder. Reproductive: Unremarkable as visualized. ABDOMEN and PELVIS: Intraperitoneal space: No free air. Bones/joints: No acute fracture. Soft tissues: Unremarkable. Vasculature: Unremarkable. Lymph nodes: Unremarkable. Tubes, lines and devices: Gastrostomy tube in the stomach. IMPRESSION: 1. Mildly thickened sigmoid colon which may be underdistention, chronic, colitis, versus lesion. Colonic air-distention which may be ileus. No bowel obstruction or diverticulitis. 2. Thickened bladder which may be chronic, cystitis, versus lesion. 3. Bibasilar infiltrates. Small left pleural effusion. There is a tracheostomy which appears appropriately positioned. There are bilateral moderate to large pleural effusions. There is extensive parenchymal disease involving the right upper lobe and right lower lobe. Some of this has a possible honeycomb appearance, versus intralobular septal thickening in areas of air- trapping. There are other areas of denser consolidation noted. A calcified granuloma is seen in the superior segment of the right lower lobe. Dense consolidation is seen involving much of the left upper lobe. There is considerable volume loss of the left lower lobe, partly due to cardiomegaly and probably due to the pleural effusions. The heart is mildly enlarged. There is no pericardial effusion. The main pulmonary artery is dilated, measuring 4 cm in diameter. Calcified granulomatous lymph nodes are seen in the right pulmonary hilum and subcarinal region. No mediastinal or hilar mass or adenopathy is demonstrated. No axillary or chest wall mass or adenopathy. There is unilateral gynecomastia on the left. There is a right arm PICC, tip in the mid superior vena cava. There is some edema of the left chest wall and upper abdominal wall. The included upper abdominal viscera demonstrate a gastrostomy tube in place. Impression: Bilateral moderate to large pleural effusions Extensive bilateral parenchymal disease. This may indicate pulmonary edema, bilateral pneumonia, and there may be a significant chronic component as well Evidence of old granulomatous disease within the right lung and hilar and mediastinal lymph nodes Cardiomegaly Dilated main pulmonary artery, likely indicative of pulmonary arterial hypertension DAILY ESTIMATED NEEDS: Needs based on Critical care, wound [employer]TE[employer] TF 82kg 20-28 kcals/kg 3215-1308 total kcals 1.25-2 g protein/kg 103-164 g total protein 25-30 mL/kg 6575-9602 total fluid mLs NUTRITION DIAGNOSIS: * Swallowing difficulty R/T respiratory status, dysphagia as evidenced by trach/vent dep, PEG dep. CURRENT TF: Osmolite 1.5 @20 ml/hr ENTERAL NUTRITION RECOMMENDATIONS: Glucerna 1.5 @ 50ml/hr x 24 hrs + Prosource 1pkt QD to provide 1200ml, 1800kcal, 99g +11g prot, 911ml free water * As medically able, rec GLUCERNA 1.5. Start @20ml/hr for 6 hrs, advance as tolerated 10ml/hr q4-6 hrs to goal. * Once TF well tolerated at goal, add Prosource 1pkt QD to meet est protein needs * HOB over 30 degrees/ water flush per MD ADDITIONAL RECOMMENDATIONS: * Re-calibrated bedcale wt for accurate CBW * Monitor lytes closely krystle w/ Lasix, replete as needed * Rec wound care eval -> Stage 2, add Vit C 250mg QD + MANJIT BID * Close BG monitoring: previously w/ hypoglycemic episode, now BGs 200's -> Rec TF change to carb controlled TF * TF rec as above . (2) Pneumonia (3) Free intraperitoneal air Assessment & Plan: Apparent lucency underlying the right hemidiaphragm. This may potentially be artifactual. Recommend correlation with CT of the abdomen to exclude the possibility of free peritoneal air, particularly if there is a history of abdominal pain. Extensive interstitial and alveolar infiltrates concerning for multifocal pneumonia. Possibility of underlying chronic interstitial/chronic lung disease and scarring can also be considered. Indwelling tracheostomy tube. (4) Perforated abdominal viscus Assessment & Plan: CT reviewed no free air artifact on cxr abd distended cannot tell tender given condition will monitor (5) Decubitus skin ulcer (6) Hyperglycemia (7) Leukocytosis (8) GIB (gastrointestinal bleeding) (9) POPPY (acute kidney injury) (10) Dyspnea (11) Respiratory distress Assessment & Plan: trach changed 6f shiley stable now Ultrasound used to localize optimal puncture site. Sterile prepping and draping left chest. Local anesthesia with 1% lidocaine. Under real-time ultrasound guidance, puncture pleural space using thoracentesis needle. Stylet removed. Catheter placed to vacuum bottle suction. Total 650 milliliters of fluid aspirated. Patient tolerated procedure well, without immediate complication. Findings: Followup sonography demonstrates complete resolution of pleural fluid. Impression: Successful ultrasound-guided thoracentesis, yielding 650 milliliters of fluid Abdoul Lucas Aug 11, 2020 18:51
--- NOTE | 2020-08-11 19:08 | NUR ---
NURSE HAND-OFF REPORT: Important Events on Shift: Patient Status: Stable Diet: Glucerna 1.5 50 ml/hr Pending Orders: None Pending Results/Labs:None Pending MD notification:None Latest Vital Signs: Temperature 98.2 , Pulse 80 , B/P 137 /83 , Respiratory Rate 19 , O2 SAT 96 , Mechanical Ventilator, O2 Flow Rate . Vital Sign Comment: Stable EKG Rhythm: Sinus Rhythm Rhythm change?: N MD Notified?: - MD Response: Latest Ackerman Fall Score: 70 Fall Risk: High Risk Safety Measures: Call light Within Reach, Bed Alarm Zone 1, Side Rails Side Rails x3, Bed position Low and Locked. Fall Precautions: Yellow Socks Yellow Gown Door Sign Report given to MANNY Bower.
--- NOTE | 2020-08-11 19:17 | NUR ---
NURSE NOTES: received report from Migue Gongora RN, pt. in bed obtunded, no signs or symptoms of acute distress noted, bed alarm on, side rails up x's3 and safety brakes engaged, safety brakes engaged, pt. appears to be tolerating current vent settings well- AC 16, TV 500, Fio2 at 35% and peep 5- no distress noted, pt. has G tube running Glucerna 1.5 at 50cc/hr- no residual noted, pt. appears clean and dry, Vera intact and draining to gravity, repositioned and turned pt., aspiration and skin precautions observed, ZOE PICC running TKO- intact and patent. Side rails padded for seizure precautions- no seizure activity noted, safety measures continued, will continue with plan of care.
[2020-08-11 20:00] VITALS: BP 110/74
[2020-08-11] MEDS: Dyna-Hex 2% Top Sol 2oz TOPIC SCH (20:09)
[2020-08-11] MEDS: levETIRAcetam 500mg/5ml Liquid GT SCH (20:10)
[2020-08-11] MEDS: Acetaminophen 650mg/20.3ml GT PRN (20:10)
[2020-08-12] VITALS: BP 112/67
[2020-08-12] MEDS: Acetaminophen 650mg/20.3ml GT PRN ×2 (02:52→17:13)
--- NOTE | 2020-08-12 02:59 | Cardiology Progress Note ---
Subjective DATE OF SERVICE: Aug 11, 2020 On vent support s/p thorocentesis with fluid removal. Remains congested; continues to receive diuresis. Monitor: sinus tachycardia with occ PAC's CXR: bilateral infiltrates and effusions Objective Last 24 Hour Vital Signs Date Time Temp Pulse Resp B/P (MAP) Pulse Ox O2 Delivery O2 Flow Rate FiO2 08/12/20 00:00 98.6 73 22 112/67 (82) 99 08/12/20 00:00 Mechanical Ventilator 08/12/20 00:00 30 08/11/20 23:27 79 08/11/20 23:08 78 19 35 08/11/20 20:40 99.2 08/11/20 20:00 Mechanical Ventilator 08/11/20 20:00 100.1 76 22 110/74 (86) 97 08/11/20 20:00 30 08/11/20 19:04 78 08/11/20 19:02 80 19 35 08/11/20 16:00 80 08/11/20 16:00 Mechanical Ventilator 08/11/20 16:00 30 08/11/20 15:40 98.2 78 22 137/83 (101) 96 08/11/20 15:30 78 22 35 08/11/20 12:00 99 08/11/20 12:00 Mechanical Ventilator 08/11/20 12:00 30 08/11/20 12:00 98.8 84 26 127/70 (89) 97 08/11/20 10:53 79 20 35 08/11/20 08:00 30 08/11/20 08:00 79 08/11/20 08:00 Mechanical Ventilator 08/11/20 07:53 99.5 82 19 116/71 (86) 97 08/11/20 07:22 76 20 35 08/11/20 04:00 35 08/11/20 04:00 Mechanical Ventilator 08/11/20 04:00 96 08/11/20 04:00 99.5 74 19 134/75 (94) 98 08/11/20 03:14 78 20 35 ROS: unchanged HEENT: Thin Trach secretions, other - protruding tongue RHYTHM: NSR, ST, PACs LUNGS: diminished breath sounds - bilat, left-sided rhonchi CARDIAC: normal rate, regular rhythm, normal S1 and S2 ABDOMEN: normal bowel sounds, non tender, soft, no organomegaly, G-Tube intact EXTREMITIES: normal range of motion, no calf tenderness, trace edema Laboratory Tests Test 08/11/20 05:29 08/11/20 11:05 08/11/20 17:04 08/11/20 22:54 POC Whole Blood Glucose 267 MG/DL (74-106) H 210 MG/DL (74-106) H 224 MG/DL (74-106) H Pending Assessment/Plan Assessment/Plan Sepsis Possible perf viscous Respiratory failure Chronic encephalopathy Paroxysmal atrial ectopy Sinus tachycardia Anemia Dehydration/hypernatremia Hypokalemia Severe protein/calorie malnutrition Hypomagnesemia HC assoc PNA CHF, ac/chr diastolic Pleural effusions - s/p thorocentesis Diuresis; trend BNP Titrate beta toni. Antimicrobials Anti-sz medx Vent support Protein suppl DVT prophyl [place] MD Aug 12, 2020 02:59
--- NOTE | 2020-08-12 03:00 | NUR ---
NURSE NOTES: cooling measures provided as pt. has a temp and Tylenol administered- per eMAR protocol. Bed bath given, linens changed, oral care provided, repositioned and turned pt.- pt. appears to be sating well on current vent settings at 100%- no distress noted, pt. appears to be resting comfortably- aspiration and skin precautions observed, will continue to monitor pt. and with plan of care.
[2020-08-12 03:53] VITALS: BP 119/67
--- NOTE | 2020-08-12 05:08 | NUR ---
NURSE NOTES: during repositioning noted- g tube out at bedside- message left for DR. Esqueda-awaiting for call back from doctor- pt. remains stable,will continue to monitor pt.
[2020-08-12] MEDS: NovoLOG Insulin Flexpen SUBQ SCH ×3 (05:27→17:45)
--- NOTE | 2020-08-12 06:32 | NUR ---
NURSE NOTES: per Dr. Esqueda to insert Vera in area where G tube came out- orders carried out.
--- NOTE | 2020-08-12 07:04 | NUR ---
NURSE HAND-OFF REPORT: Important Events on Shift:g tube out at bedside/ fever Patient Status: fair Diet: Glucerna 1.5- held due to g tube out Pending Orders: Pending Results/Labs: Pending MD notification: Latest Vital Signs: Temperature 99.1 , Pulse 78 , B/P 119 /67 , Respiratory Rate 20 , O2 SAT 99 , Mechanical Ventilator, O2 Flow Rate . Vital Sign Comment: EKG Rhythm: Sinus Rhythm Rhythm change?: N MD Notified?: - MD Response: Latest Ackerman Fall Score: 70 Fall Risk: High Risk Safety Measures: Call light Within Reach, Bed Alarm Zone 1, Side Rails Side Rails x3, Bed position Low and Locked. Fall Precautions: Yellow Socks Yellow Gown Door Sign Report given to Migue Whelan, aware to f/u on any abnormal am labs and G tube insertion with MD.
--- NOTE | 2020-08-12 07:50 | NUR ---
NURSE NOTES: Received report from MANNY Bower. Pt is asleep. Appears to be in no respiratory/cardiac distress. telemetry monitor shows SR. Pt trach to vent, shiley 8, AAC 16, Tv 500, FiO2 30%, PEEP 5, SpO2 98%. GT was removed during night, glucerna 1.5 50cc/hr currently on hold. Vera draining well to gravity. R UA PICC intact and asymptomatic. Last dressing change of 08/08 noted. HOB elevated, side rails x3 and padded, bed locked and in lowest position, bed alarm on, call light within reach. Will continue plan of care. Will continue to monitor.
[2020-08-12 08:00] VITALS: BP 124/71
[2020-08-12] MEDS: Ascorbic Acid 500mg tab GT SCH ×2 (08:17→17:04)
[2020-08-12] MEDS: levETIRAcetam 500mg/5ml Liquid GT SCH ×2 (08:18→20:24)
--- NOTE | 2020-08-12 09:59 | Infectious Diseases Prog Note ---
Assessment/Plan Assessment/Plan A 1. Acinetobacter pneumonia treated COVID 19 negative 2. Ventilator dependent respiratory failure 3. colitis 4. UTI 5. Diabetes mellitus 6. Hypertension 7. COPD P 1. Observe off of antibiotic Subjective ROS Limited/Unobtainable: Yes Allergies: Coded Allergies: No Known Allergies (Unverified , 07/04/18) Objective Last 24 Hour Vital Signs Date Time Temp Pulse Resp B/P (MAP) Pulse Ox O2 Delivery O2 Flow Rate FiO2 08/12/20 08:00 30 08/12/20 08:00 Mechanical Ventilator 08/12/20 08:00 99.0 79 20 124/71 (88) 99 08/12/20 07:49 80 08/12/20 07:21 82 20 35 08/12/20 04:00 Mechanical Ventilator 08/12/20 04:00 30 08/12/20 03:53 99.1 78 20 119/67 (84) 99 08/12/20 03:31 87 08/12/20 03:22 99.4 08/12/20 03:10 84 23 35 08/12/20 00:00 98.6 73 22 112/67 (82) 99 08/12/20 00:00 Mechanical Ventilator 08/12/20 00:00 30 08/11/20 23:27 79 08/11/20 23:08 78 19 35 08/11/20 20:40 99.2 08/11/20 20:00 Mechanical Ventilator 08/11/20 20:00 100.1 76 22 110/74 (86) 97 08/11/20 20:00 30 08/11/20 19:04 78 08/11/20 19:02 80 19 35 08/11/20 16:00 80 08/11/20 16:00 Mechanical Ventilator 08/11/20 16:00 30 08/11/20 15:40 98.2 78 22 137/83 (101) 96 08/11/20 15:30 78 22 35 08/11/20 12:00 99 08/11/20 12:00 Mechanical Ventilator 08/11/20 12:00 30 08/11/20 12:00 98.8 84 26 127/70 (89) 97 08/11/20 10:53 79 20 35 Height (Feet): 5 Height (Inches): 11.00 Weight (Pounds): 180 HEENT: status post trach Respiratory/Chest: rhonchi - bilaterally, other - on ventilator Cardiovascular: normal rate, other - R arm PICC line Abdomen: soft, non tender, other - GT feeding Extremities: no edema Neurologic/Psychiatric: other - twiching movement of tongue Laboratory Tests Test 08/11/20 11:05 08/11/20 17:04 08/11/20 22:54 08/12/20 04:43 POC Whole Blood Glucose 210 MG/DL (74-106) H 224 MG/DL (74-106) H Pending 290 MG/DL (74-106) H Current Medications Medications (Trade) Dose Ordered Sig/Derrick Route PRN Reason Start Time Stop Time Status Last Admin Dose Admin Acetaminophen (Tylenol) 650 mg Q4H PRN NG For Pain 08/08/20 20:30 09/07/20 20:29 08/08/20 21:16 Acetaminophen (Tylenol) 650 mg Q4H PRN RECTAL Mild Pain (Pain Scale 1-3) 07/28/20 21:15 08/27/20 21:14 08/03/20 21:11 Acetaminophen (Tylenol) 650 mg Q6H PRN GT Temp >100.5 08/02/20 12:45 09/01/20 12:44 08/12/20 02:52 Ascorbic Acid (Vitamin C) 250 mg TWICE A DAY GT 08/10/20 18:00 09/08/20 17:59 08/11/20 17:22 Chlorhexidine Gluconate (Gwendolyn-Hex 2%) 1 applic DAILY@1999 TOPIC 07/30/20 20:00 10/28/20 19:59 08/11/20 20:09 Clonidine HCl (Catapres Tab) 0.1 mg Q4H PRN GT For High Blood Pressure 08/10/20 13:15 10/26/20 21:14 Dextrose (Dextrose 50%) 25 ml Q30M PRN IV Hypoglycemia 08/02/20 12:45 10/31/20 12:44 Dextrose (Dextrose 50%) 50 ml Q30M PRN IV Hypoglycemia 08/02/20 12:45 10/31/20 12:44 Furosemide (Lasix) 40 mg DAILY IV 08/08/20 11:30 09/07/20 11:29 08/12/20 08:17 Insulin Aspart (NovoLOG) per nurse, pt now on g-t... Q6HR SUBQ 08/02/20 12:00 10/31/20 11:59 08/12/20 05:27 Lansoprazole (Prevacid) 30 mg DAILY GT 08/11/20 09:00 09/10/20 08:59 08/11/20 08:15 Levetiracetam (Keppra) 1,000 mg Q12HR GT 08/11/20 21:00 09/10/20 20:59 08/11/20 20:10 Magnesium Hydroxide (Mom) 30 ml DAILYPRN PRN GT Constipation 08/05/20 21:45 09/04/20 21:44 08/05/20 22:06 Carlos Amaro MD Aug 12, 2020 09:59
--- NOTE | 2020-08-12 10:00 | NUR ---
NURSE NOTES: Ms. Rdz, PSYCH NURSE at nurse station, informed PSYCH NURSE patient is on Bipap now per Dr. Levin and ABG will be redrawn at 1100 hours. Ms. Rdz acknowledged. Also informed Ms. Rdz patient is on NGT now and inquired if okay to give medications while patient is on Bipap. Ms. Rdz acknowledged and informed this nurse okay to give medications while patient is on BIPAP. Ms. Rdz deferred tube feeding orders to Dr. Esqueda. Noted. Will continue to monitor patient. Addendum: 08/12/20 at 1003 by DENISE ACE RN NURSE NOTES: Correction: Above nurse note for different patient. Please disregard.
--- NOTE | 2020-08-12 10:02 | Critical Care Progress Note ---
Assessment/Plan Assessment/Plan IMPRESSION: probable sepsis, hyponatremia, acute renal failure, chronic respiratory failure, thickened colon diffuse pneumonia, elevated lactic dehydrogenase, abdominal distention, severe protein-calorie malnutrition, seizure disorder. pneumonia, anemia, diffuse pulmonary infiltrates with bilateral pleural effusions, likely 3rd spacing PLAN tap completed monitor blood sugars and adjust repeat CXR- noted IV antibiotics per ID respiratory care Ventilatory support SNF meds supportive care monitor for seizures monitor residuals dc to snf for now impression, plan, and exam edited and reviewed in detail care discussed with driver engineer - Subjective ROS Limited/Unobtainable: Yes Condition: unchanged EKG Rhythm: Sinus Rhythm Residuals: minimal Tube Feeding Tolerated: yes I&O: Intake and Output 08/11/20 08/12/20 19:00 07:00 Intake Total 800 ml 600 ml Output Total 1200 ml 375 ml Balance -400 ml 225 ml Free Water 200 ml 100 ml IV Total 100 ml Tube Feeding 500 ml 500 ml Output Urine Total 1200 ml 375 ml # Bowel Movements 1 Critical Care - Objective Last 24 Hour Vital Signs Date Time Temp Pulse Resp B/P (MAP) Pulse Ox O2 Delivery O2 Flow Rate FiO2 08/12/20 08:00 30 08/12/20 08:00 Mechanical Ventilator 08/12/20 08:00 99.0 79 20 124/71 (88) 99 08/12/20 07:49 80 08/12/20 07:21 82 20 35 08/12/20 04:00 Mechanical Ventilator 08/12/20 04:00 30 08/12/20 03:53 99.1 78 20 119/67 (84) 99 08/12/20 03:31 87 08/12/20 03:22 99.4 08/12/20 03:10 84 23 35 08/12/20 00:00 98.6 73 22 112/67 (82) 99 08/12/20 00:00 Mechanical Ventilator 08/12/20 00:00 30 08/11/20 23:27 79 08/11/20 23:08 78 19 35 08/11/20 20:40 99.2 08/11/20 20:00 Mechanical Ventilator 08/11/20 20:00 100.1 76 22 110/74 (86) 97 08/11/20 20:00 30 08/11/20 19:04 78 08/11/20 19:02 80 19 35 12/2/20 16:00 80 08/11/20 16:00 Mechanical Ventilator 08/11/20 16:00 30 08/11/20 15:40 98.2 78 22 137/83 (101) 96 08/11/20 15:30 78 22 35 08/11/20 12:00 99 08/11/20 12:00 Mechanical Ventilator 08/11/20 12:00 30 08/11/20 12:00 98.8 84 26 127/70 (89) 97 08/11/20 10:53 79 20 35 Objective: GENERAL: An ill-appearing male, chronically ill. HEENT: Negative. Tracheostomy midline. The patient is with chronic tongue protrusion. LUNGS: Coarse breath sounds. moderate breath sounds CARDIAC: S1, S2. Regular rate and rhythm. ABDOMEN: Distended. Poor bowel sounds. EXTREMITIES: No cyanosis or clubbing. There is mild edema. NEUROLOGIC: Poorly responsive to pain. Accucheck: 290 Bakari Montanez MD Aug 12, 2020 10:02
--- NOTE | 2020-08-12 10:20 | NUR ---
NURSE NOTES: Patient noted with discharge order from Dr. Montanez. Contacted and informed Dr. Montanez that patient's G-tube "came out" last night per night nurse report. Dr. Montanez was made aware that Dr. Esqueda will come in today to insert G-tube. Dr. Montanez acknowledged and ordered to hold discharge at this time. Noted. Will continue to monitor patient.
--- NOTE | 2020-08-12 11:04 | Surgery Progress Note ---
Surgery Progress Note Subjective Additional Comments no acute events comfortable stable on support no n/v labs noted Objective Last 24 Hour Vital Signs Date Time Temp Pulse Resp B/P (MAP) Pulse Ox O2 Delivery O2 Flow Rate FiO2 08/12/20 08:00 30 08/12/20 08:00 Mechanical Ventilator 08/12/20 08:00 99.0 79 20 124/71 (88) 99 08/12/20 07:49 80 08/12/20 07:21 82 20 35 08/12/20 04:00 Mechanical Ventilator 08/12/20 04:00 30 08/12/20 03:53 99.1 78 20 119/67 (84) 99 08/12/20 03:31 87 08/12/20 03:22 99.4 08/12/20 03:10 84 23 35 08/12/20 00:00 98.6 73 22 112/67 (82) 99 08/12/20 00:00 Mechanical Ventilator 08/12/20 00:00 30 08/11/20 23:27 79 08/11/20 23:08 78 19 35 08/11/20 20:40 99.2 08/11/20 20:00 Mechanical Ventilator 08/11/20 20:00 100.1 76 22 110/74 (86) 97 08/11/20 20:00 30 08/11/20 19:04 78 08/11/20 19:02 80 19 35 08/11/20 16:00 80 08/11/20 16:00 Mechanical Ventilator 08/11/20 16:00 30 08/11/20 15:40 98.2 78 22 137/83 (101) 96 08/11/20 15:30 78 22 35 08/11/20 12:00 99 08/11/20 12:00 Mechanical Ventilator 08/11/20 12:00 30 08/11/20 12:00 98.8 84 26 127/70 (89) 97 I&O Intake and Output 08/11/20 08/12/20 19:00 07:00 Intake Total 800 ml 600 ml Output Total 1200 ml 375 ml Balance -400 ml 225 ml Free Water 200 ml 100 ml IV Total 100 ml Tube Feeding 500 ml 500 ml Output Urine Total 1200 ml 375 ml # Bowel Movements 1 Dressing: saturated Cardiovascular: RSR Respiratory: decreased breath sounds Abdomen: non-tender, present bowel sounds Extremities: no tenderness, no cyanosis Laboratory Tests Test 12/2/20 11:05 08/11/20 17:04 08/11/20 22:54 08/12/20 04:43 POC Whole Blood Glucose 210 MG/DL (74-106) H 224 MG/DL (74-106) H Pending 290 MG/DL (74-106) H Plan Problems: (1) Sepsis Assessment & Plan: 75M. cxr with possible free air. ct done and noted. abd distended. exam limited leukocytosis abnormal labs improving with fluids trach malfunction now improved on vent support cont current care will monitor and follow with recs PICC line trend labs transfuse prbc prn trach leak needs trach change trach changed cxr noted infiltrates labs improving d/c planning cont abx as per ID ABDOMEN: Liver: Unremarkable. Gallbladder and bile ducts: Unremarkable. No calcified stones. Pancreas: Unremarkable. Spleen: Unremarkable. Adrenals: Unremarkable. Kidneys and ureters: Unremarkable. No hydronephrosis. Stomach and bowel: Mildly thickened sigmoid colon which may be underdistention, chronic, colitis, versus lesion. Colonic air-distention which may be ileus. No bowel obstruction or diverticulitis. PELVIS: Appendix: No findings to suggest acute appendicitis. Bladder: Thickened bladder which may be chronic, cystitis, versus lesion. Vera catheter in the bladder. Reproductive: Unremarkable as visualized. ABDOMEN and PELVIS: Intraperitoneal space: No free air. Bones/joints: No acute fracture. Soft tissues: Unremarkable. Vasculature: Unremarkable. Lymph nodes: Unremarkable. Tubes, lines and devices: Gastrostomy tube in the stomach. IMPRESSION: 1. Mildly thickened sigmoid colon which may be underdistention, chronic, colitis, versus lesion. Colonic air-distention which may be ileus. No bowel obstruction or diverticulitis. 2. Thickened bladder which may be chronic, cystitis, versus lesion. 3. Bibasilar infiltrates. Small left pleural effusion. There is a tracheostomy which appears appropriately positioned. There are bilateral moderate to large pleural effusions. There is extensive parenchymal disease involving the right upper lobe and right lower lobe. Some of this has a possible honeycomb appearance, versus intralobular septal thickening in areas of air- trapping. There are other areas of denser consolidation noted. A calcified granuloma is seen in the superior segment of the right lower lobe. Dense consolidation is seen involving much of the left upper lobe. There is considerable volume loss of the left lower lobe, partly due to cardiomegaly and probably due to the pleural effusions. The heart is mildly enlarged. There is no pericardial effusion. The main pulmonary artery is dilated, measuring 4 cm in diameter. Calcified granulomatous lymph nodes are seen in the right pulmonary hilum and subcarinal region. No mediastinal or hilar mass or adenopathy is demonstrated. No axillary or chest wall mass or adenopathy. There is unilateral gynecomastia on the left. There is a right arm PICC, tip in the mid superior vena cava. There is some edema of the left chest wall and upper abdominal wall. The included upper abdominal viscera demonstrate a gastrostomy tube in place. Impression: Bilateral moderate to large pleural effusions Extensive bilateral parenchymal disease. This may indicate pulmonary edema, bilateral pneumonia, and there may be a significant chronic component as well Evidence of old granulomatous disease within the right lung and hilar and mediastinal lymph nodes Cardiomegaly Dilated main pulmonary artery, likely indicative of pulmonary arterial hypertension DAILY ESTIMATED NEEDS: Needs based on Critical care, wound [employer] TF 82kg 20-28 kcals/kg 3181-5893 total kcals 1.25-2 g protein/kg 103-164 g total protein 25-30 mL/kg 7949-7943 total fluid mLs NUTRITION DIAGNOSIS: * Swallowing difficulty R/T respiratory status, dysphagia as evidenced by trach/vent dep, PEG dep. CURRENT TF: Osmolite 1.5 @20 ml/hr ENTERAL NUTRITION RECOMMENDATIONS: Glucerna 1.5 @ 50ml/hr x 24 hrs + Prosource 1pkt QD to provide 1200ml, 1800kcal, 99g +11g prot, 911ml free water * As medically able, rec GLUCERNA 1.5. Start @20ml/hr for 6 hrs, advance as tolerated 10ml/hr q4-6 hrs to goal. * Once TF well tolerated at goal, add Prosource 1pkt QD to meet est protein needs * HOB over 30 degrees/ water flush per MD ADDITIONAL RECOMMENDATIONS: * Re-calibrated bedcale wt for accurate CBW * Monitor lytes closely krystle w/ Lasix, replete as needed * Rec wound care eval -> Stage 2, add Vit C 250mg QD + MANJIT BID * Close BG monitoring: previously w/ hypoglycemic episode, now BGs 200's -> Rec TF change to carb controlled TF * TF rec as above . (2) Pneumonia (3) Free intraperitoneal air Assessment & Plan: Apparent lucency underlying the right hemidiaphragm. This may potentially be artifactual. Recommend correlation with CT of the abdomen to exclude the possibility of free peritoneal air, particularly if there is a history of abdominal pain. Extensive interstitial and alveolar infiltrates concerning for multifocal pneumonia. Possibility of underlying chronic interstitial/chronic lung disease and scarring can also be considered. Indwelling tracheostomy tube. (4) Perforated abdominal viscus Assessment & Plan: CT reviewed no free air artifact on cxr abd distended cannot tell tender given condition will monitor (5) Decubitus skin ulcer (6) Hyperglycemia (7) Leukocytosis (8) GIB (gastrointestinal bleeding) (9) POPPY (acute kidney injury) (10) Dyspnea (11) Respiratory distress Assessment & Plan: trach changed 6f shiley stable now Ultrasound used to localize optimal puncture site. Sterile prepping and draping left chest. Local anesthesia with 1% lidocaine. Under real-time ultrasound guidance, puncture pleural space using thoracentesis needle. Stylet removed. Catheter placed to vacuum bottle suction. Total 650 milliliters of fluid aspirated. Patient tolerated procedure well, without immediate complication. Findings: Followup sonography demonstrates complete resolution of pleural fluid. Impression: Successful ultrasound-guided thoracentesis, yielding 650 milliliters of fluid Abdoul Lucas Aug 12, 2020 11:04
[2020-08-12 12:00] VITALS: BP 131/80
--- NOTE | 2020-08-12 13:30 | NUR ---
NURSE NOTES: Dr. Esqueda called nurse station and informed this nurse they will come in to insert G-tube. Noted.
--- NOTE | 2020-08-12 13:51 | NUR ---
NURSE NOTES: Dr. Adela Amaro at nurse station made aware that patient is having temperature of 100.2 F and is currently 99.5 F. Patient noted with discharge order, inquired if patient okay to be discharged. Dr. Adela Amaro acknowledged and stated okay to discharge. Noted. Will continue as directed.
--- NOTE | 2020-08-12 14:09 | NUR ---
*-*DISCHARGE PLANNING*-* PATIENT HAS BEEN ACCEPTED AND WILL BE DISCHARGE TO: [facility] P: [phone] FOR NURSE TO NURSE REPORT ROOM# 217.B [facility] WILL CALL [phone]
--- NOTE | 2020-08-12 14:11 | NUR ---
DISCHARGE PLANNED PATIENT HAS BEEN ACCEPTED BACK TO [facility] ROOM 208-C DISCHARGE PLANNED [facility] WILL ARRANGE TRANSPORTATION FOR [address]
[2020-08-12] MEDS ORDERED: NS 275ml ONE ×2 (14:54→15:04)
[2020-08-12] MEDS ORDERED: D5NS 1000ml IV ONE (15:04)
--- NOTE | 2020-08-12 15:27 | NUR ---
NURSE NOTES: Spoke with Dr. Amaro regarding pt's low grade temperature of 100.6. Cooling measures were initiated and temperature decreased to 100.4. Received orders for CXR. Notified Dr of no abx since 08/11. Dr. Russell; will contact Dr. Montanez for further discharge instructions.
--- NOTE | 2020-08-12 15:29 | NUR ---
NURSE NOTES: Called Dr. Montanez and notified him of pt's low grade fever and Dr. Amaro's new orders for CXR. Ordered to hold off on discharge. Noted and will carry out.
--- NOTE | 2020-08-12 16:24 | General Progress Note ---
Subjective ROS Limited/Unobtainable: No Allergies: Coded Allergies: No Known Allergies (Unverified , 07/04/18) Objective Last 24 Hour Vital Signs Date Time Temp Pulse Resp B/P (MAP) Pulse Ox O2 Delivery O2 Flow Rate FiO2 08/12/20 12:00 30 08/12/20 12:00 Mechanical Ventilator 08/12/20 12:00 85 08/12/20 12:00 99.6 78 20 131/80 (97) 99 08/12/20 11:28 79 20 35 08/12/20 08:00 30 08/12/20 08:00 Mechanical Ventilator 08/12/20 08:00 99.0 79 20 124/71 (88) 99 08/12/20 07:49 80 08/12/20 07:21 82 20 35 08/12/20 04:00 Mechanical Ventilator 08/12/20 04:00 30 08/12/20 03:53 99.1 78 20 119/67 (84) 99 08/12/20 03:31 87 08/12/20 03:22 99.4 08/12/20 03:10 84 23 35 08/12/20 00:00 98.6 73 22 112/67 (82) 99 08/12/20 00:00 Mechanical Ventilator 08/12/20 00:00 30 08/11/20 23:27 79 08/11/20 23:08 78 19 35 08/11/20 20:40 99.2 08/11/20 20:00 Mechanical Ventilator 08/11/20 20:00 100.1 76 22 110/74 (86) 97 08/11/20 20:00 30 08/11/20 19:04 78 08/11/20 19:02 80 19 35 Intake and Output 08/11/20 08/12/20 19:00 07:00 Intake Total 800 ml 600 ml Output Total 1200 ml 375 ml Balance -400 ml 225 ml Free Water 200 ml 100 ml IV Total 100 ml Tube Feeding 500 ml 500 ml Output Urine Total 1200 ml 375 ml # Bowel Movements 1 Laboratory Tests 08/11/20 17:04: POC Whole Blood Glucose 224H 08/11/20 22:54: POC Whole Blood Glucose [Pending] 08/12/20 04:43: POC Whole Blood Glucose 290H 08/12/20 11:18: POC Whole Blood Glucose 250H Height (Feet): 5 Height (Inches): 11.00 Weight (Pounds): 180 General Appearance: no apparent distress EENT: normal ENT inspection Neck: supple Cardiovascular: normal rate Respiratory/Chest: decreased breath sounds Abdomen: normal bowel sounds, non tender, soft, no organomegaly Extremities: non-tender Assessment/Plan Problem List: (1) Respiratory distress ICD Codes: R06.03 - Acute respiratory distress SNOMED: 886584124 (2) Dyspnea ICD Codes: R06.00 - Dyspnea, unspecified SNOMED: 681929760 (3) POPPY (acute kidney injury) ICD Codes: N17.9 - Acute kidney failure, unspecified SNOMED: 6453912, 21706245 (4) GIB (gastrointestinal bleeding) ICD Codes: K92.2 - Gastrointestinal hemorrhage, unspecified SNOMED: 04704504 (5) Hyperglycemia ICD Codes: R73.9 - Hyperglycemia, unspecified SNOMED: 81066158 (6) Decubitus skin ulcer ICD Codes: L89.90 - Pressure ulcer of unspecified site, unspecified stage SNOMED: 311122699 Status: stable, not improved Assessment/Plan: GT changed at the bedside ok to use GT GTF will Edgar Coleman MD Aug 12, 2020 16:24
--- NOTE | 2020-08-12 16:30 | NUR ---
NURSE NOTES: Dr. Esqueda seen and examined patient at bedside. Inserted 20 croatian G-tube at bedside. Per Dr. Esqueda no x-ray needed, may begin tube feeding, may administer medications through G-tube, patient may be discharged. Noted. Will continue to monitor patient.
--- NOTE | 2020-08-12 16:45 | Diagnostic Imaging Report ---
Indication: Cough Technique: One view of the chest Comparison: 08/11/2020 Findings: Bilateral interstitial and airspace infiltrates are unchanged. Tracheostomy and PICC are again demonstrated. Small right pleural effusion is unchanged. Impression: Unchanged, over one day, findings as above.
--- NOTE | 2020-08-12 17:01 | NUR ---
NURSE NOTES: Alerted by Mahad motion picture camera lens technician, that pt's HR went to 140's for [address] Madison and alerted him of the issue. Pt's HR is back down to 86, and BP is 125/72. No orders received; will continue to monitor. Will continue plan of care.
--- NOTE | 2020-08-12 17:11 | General Progress Note ---
Subjective ROS Limited/Unobtainable: Yes Constitutional: Reports: fever, malaise, weakness HEENT: Reports: no symptoms Cardiovascular: Reports: edema Respiratory: Reports: cough, shortness of breath, sputum Gastrointestinal/Abdominal: Reports: difficulty swallowing Genitourinary: Reports: no symptoms Neurologic/Psychiatric: Reports: pre-existing deficit, seizure Endocrine: Reports: no symptoms Hematologic/Lymphatic: Reports: anemia Allergies: Coded Allergies: No Known Allergies (Unverified , 07/04/18) All Systems: reviewed and negative except above Subjective s/p tap. low grade fevers. stil congested. Objective Last 24 Hour Vital Signs Date Time Temp Pulse Resp B/P (MAP) Pulse Ox O2 Delivery O2 Flow Rate FiO2 08/12/20 15:45 82 21 35 08/12/20 12:00 30 08/12/20 12:00 Mechanical Ventilator 08/12/20 12:00 85 08/12/20 12:00 99.6 78 20 131/80 (97) 99 08/12/20 11:28 79 20 35 08/12/20 08:00 30 08/12/20 08:00 Mechanical Ventilator 08/12/20 08:00 99.0 79 20 124/71 (88) 99 08/12/20 07:49 80 08/12/20 07:21 82 20 35 08/12/20 04:00 Mechanical Ventilator 08/12/20 04:00 30 08/12/20 03:53 99.1 78 20 119/67 (84) 99 08/12/20 03:31 87 08/12/20 03:22 99.4 08/12/20 03:10 84 23 35 08/12/20 00:00 98.6 73 22 112/67 (82) 99 08/12/20 00:00 Mechanical Ventilator 08/12/20 00:00 30 08/11/20 23:27 79 08/11/20 23:08 78 19 35 08/11/20 20:40 99.2 08/11/20 20:00 Mechanical Ventilator 08/11/20 20:00 100.1 76 22 110/74 (86) 97 08/11/20 20:00 30 08/11/20 19:04 78 08/11/20 19:02 80 19 35 Intake and Output 08/11/20 08/12/20 19:00 07:00 Intake Total 800 ml 600 ml Output Total 1200 ml 375 ml Balance -400 ml 225 ml Free Water 200 ml 100 ml IV Total 100 ml Tube Feeding 500 ml 500 ml Output Urine Total 1200 ml 375 ml # Bowel Movements 1 Laboratory Tests 08/11/20 17:04: POC Whole Blood Glucose 224H 08/11/20 22:54: POC Whole Blood Glucose [Pending] 08/12/20 04:43: POC Whole Blood Glucose 290H 08/12/20 11:18: POC Whole Blood Glucose 250H Height (Feet): 5 Height (Inches): 11.00 Weight (Pounds): 180 Objective General Appearance: WD/WN, lethargic, confused EENT: PERRL/EOMI Neck: non-tender, normal alignment Cardiovascular: normal peripheral pulses, normal rate Respiratory/Chest: chest wall non-tender, lungs clear, normal breath sounds, no respiratory distress Abdomen: normal bowel sounds, non tender, soft, no organomegaly Extremities: normal range of motion Neurologic: disoriented, unresponsive, aphasia Skin: normal pigmentation Assessment/Plan Problem List: (1) Sepsis ICD Codes: A41.9 - Sepsis, unspecified organism SNOMED: 54263511 (2) Pneumonia ICD Codes: J18.9 - Pneumonia, unspecified organism SNOMED: 021127445 (3) Leukocytosis ICD Codes: D72.829 - Elevated white blood cell count, unspecified SNOMED: 238804588, 911744294 (4) POPPY (acute kidney injury) ICD Codes: N17.9 - Acute kidney failure, unspecified SNOMED: 3608585, 49202792 (5) Dyspnea ICD Codes: R06.00 - Dyspnea, unspecified SNOMED: 518399291 (6) Respiratory distress ICD Codes: R06.03 - Acute respiratory distress SNOMED: 656283221 Status: stable, not improved Assessment/Plan: tube feeds. 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
--- NOTE | 2020-08-12 19:18 | NUR ---
NURSE HAND-OFF REPORT: Important Events on Shift:[Low grade fever, discharge held] Patient Status: [Stable] Diet: [GT Glucerna 1.5 50cc/hr] Pending Orders: [NA] Pending Results/Labs:[NA] Pending MD notification:[NA] Latest Vital Signs: Temperature 100.0 , Pulse 137 , B/P 131 /80 , Respiratory Rate 21 , O2 SAT 99 , Mechanical Ventilator, O2 Flow Rate . Vital Sign Comment: [NA] EKG Rhythm: Sinus Tachycardia Rhythm change?: Jessika BROWN Notified?: Jessika Noonan MD Response: No New Orders Received Latest Ackerman Fall Score: 70 Fall Risk: High Risk Safety Measures: Call light Within Reach, Bed Alarm Zone 1, Side Rails Side Rails x3, Bed position Low and Locked. Fall Precautions: Yellow Socks Yellow Gown Door Sign Report given to [MANNY Monahan].
--- NOTE | 2020-08-12 19:52 | NUR ---
NURSE NOTES: Report received from MANNY Camarena. Observed pt lying in the bed, obtunded. SR on lunchroom monitor. Trach to vent, Shiley 6, AC 16, TV 500, FIO2 30%, PEEP 5, tolerating. S/P PEG today, intact, running Glucerna 1.5 at 50cc/hr. F/C intact and draining. ZOE double lumen, intact, TKO. Bed in the lowest position. Side rails up x3. Will continue to monitor.
[2020-08-12 20:00] VITALS: BP 130/61
[2020-08-12] MEDS: Dyna-Hex 2% Top Sol 2oz TOPIC SCH (20:24)
--- NOTE | 2020-08-12 23:56 | Cardiology Progress Note ---
Subjective DATE OF SERVICE: Aug 12, 2020 On vent support s/p thorocentesis 08/11/20, with fluid removal. Remains congested; continues to receive diuresis. Monitor: sinus tachycardia with occ PAC's CXR: bilateral infiltrates and effusions Objective Last 24 Hour Vital Signs Date Time Temp Pulse Resp B/P (MAP) Pulse Ox O2 Delivery O2 Flow Rate FiO2 08/12/20 23:03 104 17 30 08/12/20 20:00 98.2 93 20 130/61 (84) 96 08/12/20 20:00 30 08/12/20 20:00 Mechanical Ventilator 08/12/20 19:30 103 18 30 08/12/20 19:25 101 08/12/20 17:43 100.0 08/12/20 16:44 137 08/12/20 16:00 30 08/12/20 16:00 Mechanical Ventilator 08/12/20 15:48 91 08/12/20 15:45 82 21 35 08/12/20 15:30 100.6 08/12/20 12:00 30 08/12/20 12:00 Mechanical Ventilator 08/12/20 12:00 85 08/12/20 12:00 99.6 78 20 131/80 (97) 99 08/12/20 11:28 79 20 35 08/12/20 08:00 30 08/12/20 08:00 Mechanical Ventilator 08/12/20 08:00 99.0 79 20 124/71 (88) 99 08/12/20 07:49 80 08/12/20 07:21 82 20 35 08/12/20 04:00 Mechanical Ventilator 08/12/20 04:00 30 08/12/20 03:53 99.1 78 20 119/67 (84) 99 08/12/20 03:31 87 08/12/20 03:22 99.4 08/12/20 03:10 84 23 35 08/12/20 00:00 98.6 73 22 112/67 (82) 99 08/12/20 00:00 Mechanical Ventilator 08/12/20 00:00 30 ROS: unchanged HEENT: Thin Trach secretions, other - protruding tongue RHYTHM: NSR, ST, PACs LUNGS: diminished breath sounds - bilat, left-sided rhonchi CARDIAC: normal rate, regular rhythm, normal S1 and S2 ABDOMEN: normal bowel sounds, non tender, soft, no organomegaly, G-Tube intact EXTREMITIES: normal range of motion, no calf tenderness, trace edema Laboratory Tests Test 08/12/20 04:43 08/12/20 11:18 08/12/20 17:44 POC Whole Blood Glucose 290 MG/DL (74-106) H 250 MG/DL (74-106) H 238 MG/DL (74-106) H Microbiology Date/Time Source Procedure Growth Status 08/12/20 12:00 Nasopharynx SARS-CoV-2 RdRp Gene Assay - Final Complete 08/11/20 14:30 Thoracic Fluid Gram Stain - Final Resulted 08/11/20 14:30 Thoracic Fluid Body Fluid Culture - Preliminary NO GROWTH Resulted Assessment/Plan Assessment/Plan Sepsis Possible perf viscous Respiratory failure Chronic encephalopathy Paroxysmal atrial ectopy Sinus tachycardia Anemia Dehydration/hypernatremia Hypokalemia Severe protein/calorie malnutrition Hypomagnesemia HC assoc PNA CHF, ac/chr diastolic Pleural effusions - s/p thorocentesis Diuresis; trend BNP Titrate beta toni. Antimicrobials Anti-sz medx Vent support Protein suppl DVT prophyl Sea Madison MD Aug 12, 2020 23:56
[2020-08-13] VITALS: BP 128/77
[2020-08-13] MEDS: NovoLOG Insulin Flexpen SUBQ SCH ×3 (00:20→12:00)
[2020-08-13] MEDS: Acetaminophen 650mg/20.3ml GT PRN ×2 (00:22→08:25)
--- NOTE | 2020-08-13 01:25 | NUR ---
NURSE NOTES: No acute distress noted at this time. SR noted. Tolerating vent setting. Tolerating feeding, running at 30cc/hr at this time, goal is 50cc/hr noted. Reposition done. Oral care given. Will continue to monitor.
[2020-08-13 04:00] VITALS: BP 139/81
--- NOTE | 2020-08-13 07:15 | NUR ---
NURSE NOTES: Received report from MANNY Monahan. Pt is asleep, obtunded. Appears to be in no respiratory/cardiac distress. SpO2 98% on shiley 6, AC 16, TV 500, FiO2 30%, PEEP 5. radiation monitor shows SR with PACS. GT running glucerna 1.5 50 cc/hr. GT is non-draining and intact. Skin issues noted. R UA PICC double lumen intact and asymptomatic. Last dressing change of 08/08/20 noted. Pt is contracted. Fall, aspiration, and seizure precaution noted and reinforced. HOB elevated, side rails x3 and padded, call light within reach, bed alarms on, bed locked and in lowest position. Will continue to monitor. Will continue plan of care.
--- NOTE | 2020-08-13 07:18 | NUR ---
NURSE HAND-OFF REPORT: Important Events on Shift: Low grade fever of 99.5 Patient Status: No acute distress noted. Diet: Glucerna 1.5 at 40cc, goal is 50cc/hr Pending Orders: [] Pending Results/Labs:[] Pending MD notification:[] Latest Vital Signs: Temperature 98.4 , Pulse 89 , B/P 139 /81 , Respiratory Rate 19 , O2 SAT 99 , Mechanical Ventilator, O2 Flow Rate . Vital Sign Comment: [] EKG Rhythm: Sinus Rhythm Rhythm change?: N Notified?: Jessika Noonan MD Response: No New Orders Received Latest Ackerman Fall Score: 70 Fall Risk: High Risk Safety Measures: Call light Within Reach, Bed Alarm Zone 1, Side Rails Side Rails x3, Bed position Low and Locked. Fall Precautions: Yellow Socks Yellow Gown Door Sign Report given to MANNY Camarena.
[2020-08-13 08:00] VITALS: BP 134/75
[2020-08-13] MEDS: levETIRAcetam 500mg/5ml Liquid GT SCH (08:04)
[2020-08-13] MEDS: Ascorbic Acid 500mg tab GT SCH (08:04)
--- NOTE | 2020-08-13 08:30 | NUR ---
NURSE NOTES: Pt exhibiting low grade fever of 99.5. Tylenol 650mg PRN given, cooling measures on. Will reassess at 0900.
[2020-08-13] MEDS ORDERED: Furosemide 40mg tab GT SCH (09:00)
--- NOTE | 2020-08-13 09:01 | NUR ---
NURSE NOTES: Pt's temp 99.1 post Tylenol 650mg. Cooling measures still on.
[2020-08-13] MEDS ORDERED: NS 275ml ONE ×2 (09:49→13:29)
--- NOTE | 2020-08-13 10:39 | General Progress Note ---
Subjective ROS Limited/Unobtainable: No Allergies: Coded Allergies: No Known Allergies (Unverified , 07/04/18) Objective Last 24 Hour Vital Signs Date Time Temp Pulse Resp B/P (MAP) Pulse Ox O2 Delivery O2 Flow Rate FiO2 08/13/20 09:00 99.1 08/13/20 08:00 30 08/13/20 08:00 99.0 95 19 134/75 (94) 99 08/13/20 08:00 Mechanical Ventilator 08/13/20 07:42 105 08/13/20 07:12 94 17 30 08/13/20 04:00 81 08/13/20 04:00 30 08/13/20 04:00 Mechanical Ventilator 08/13/20 04:00 98.4 89 19 139/81 (100) 99 08/13/20 03:30 102 25 30 08/13/20 00:00 72 08/13/20 00:00 30 08/13/20 00:00 98.4 84 19 128/77 (94) 100 08/13/20 00:00 Mechanical Ventilator 08/12/20 23:03 104 17 30 08/12/20 20:00 98.2 93 20 130/61 (84) 96 08/12/20 20:00 30 08/12/20 20:00 Mechanical Ventilator 08/12/20 19:30 103 18 30 08/12/20 19:25 101 08/12/20 17:43 100.0 08/12/20 16:44 137 08/12/20 16:00 30 08/12/20 16:00 Mechanical Ventilator 08/12/20 15:48 91 08/12/20 15:45 82 21 35 08/12/20 15:30 100.6 08/12/20 12:00 30 08/12/20 12:00 Mechanical Ventilator 08/12/20 12:00 85 08/12/20 12:00 99.6 78 20 131/80 (97) 99 08/12/20 11:28 79 20 35 Intake and Output 08/12/20 08/13/20 19:00 07:00 Intake Total 20 ml 540 ml Output Total 950 ml 1500 ml Balance -930 ml -960 ml Free Water 200 ml Tube Feeding 20 ml 340 ml Output Urine Total 950 ml 1500 ml # Bowel Movements 7 3 Laboratory Tests 08/12/20 11:18: POC Whole Blood Glucose 250H 08/12/20 17:44: POC Whole Blood Glucose 238H 08/13/20 05:22: POC Whole Blood Glucose 250H Height (Feet): 5 Height (Inches): 11.00 Weight (Pounds): 180 General Appearance: no apparent distress EENT: normal ENT inspection Neck: supple Cardiovascular: normal rate Respiratory/Chest: decreased breath sounds Abdomen: normal bowel sounds, non tender, soft Extremities: non-tender Assessment/Plan Problem List: (1) Respiratory distress ICD Codes: R06.03 - Acute respiratory distress SNOMED: 931073942 (2) Dyspnea ICD Codes: R06.00 - Dyspnea, unspecified SNOMED: 253115796 (3) POPPY (acute kidney injury) ICD Codes: N17.9 - Acute kidney failure, unspecified SNOMED: 9572048, 76845033 (4) GIB (gastrointestinal bleeding) ICD Codes: K92.2 - Gastrointestinal hemorrhage, unspecified SNOMED: 82940928 (5) Hyperglycemia ICD Codes: R73.9 - Hyperglycemia, unspecified SNOMED: 77021219 (6) Decubitus skin ulcer ICD Codes: L89.90 - Pressure ulcer of unspecified site, unspecified stage SNOMED: 429941383 Status: stable, not improved Assessment/Plan: GT changed at the bedside yesterday ok to use GT GTF will Edgar Coleman MD Aug 13, 2020 10:39
--- NOTE | 2020-08-13 10:56 | NUR ---
NURSE NOTES: Dr. Guerrero at nurse station made aware that patient had fever of 100.6 F last night and has been having low grade fevers. Last temperature 99.[address] Guerrero acknowledged and informed this nurse patient is okay to discharge to SNF with low grade fever, no antibiotics needed. Noted.
--- NOTE | 2020-08-13 11:04 | NUR ---
*-*DISCHARGE PLANNED*-* PATIENT HAS BEEN ACCEPTED AND WILL BE DISCHARGE BACK TO: [facility] P: [phone] FOR NURSE TO NURSE REPORT ROOM# 217.[facility] SET FOR 12:30PM [id number] S/W PATIENTS SON MICHELLE SCHULER, WHO IS IN AGREEMENT WITH DISCHARGE PLAN.
--- NOTE | 2020-08-13 11:25 | Infectious Diseases Prog Note ---
Assessment/Plan Assessment/Plan antibiotics : none A 1. acenitobacter pneumonia s/p rx COVID 19 negative 2. respiratory failure 3. colitis 4. UTI 5. diabetes mellitus 6. hypertension 7. COPD P 1. observe off antibiotics Subjective ROS Limited/Unobtainable: Yes Allergies: Coded Allergies: No Known Allergies (Unverified , 07/04/18) Objective Last 24 Hour Vital Signs Date Time Temp Pulse Resp B/P (MAP) Pulse Ox O2 Delivery O2 Flow Rate FiO2 08/13/20 09:00 99.1 08/13/20 08:00 30 08/13/20 08:00 99.0 95 19 134/75 (94) 99 08/13/20 08:00 Mechanical Ventilator 08/13/20 07:42 105 08/13/20 07:12 94 17 30 08/13/20 04:00 81 08/13/20 04:00 30 08/13/20 04:00 Mechanical Ventilator 08/13/20 04:00 98.4 89 19 139/81 (100) 99 08/13/20 03:30 102 25 30 08/13/20 00:00 72 08/13/20 00:00 30 08/13/20 00:00 98.4 84 19 128/77 (94) 100 08/13/20 00:00 Mechanical Ventilator 08/12/20 23:03 104 17 30 08/12/20 20:00 98.2 93 20 130/61 (84) 96 08/12/20 20:00 30 08/12/20 20:00 Mechanical Ventilator 08/12/20 19:30 103 18 30 08/12/20 19:25 101 08/12/20 17:43 100.0 08/12/20 16:44 137 08/12/20 16:00 30 08/12/20 16:00 Mechanical Ventilator 08/12/20 15:48 91 08/12/20 15:45 82 21 35 08/12/20 15:30 100.6 08/12/20 12:00 30 08/12/20 12:00 Mechanical Ventilator 08/12/20 12:00 85 08/12/20 12:00 99.6 78 20 131/80 (97) 99 08/12/20 11:28 79 20 35 Height (Feet): 5 Height (Inches): 11.00 Weight (Pounds): 180 HEENT: status post trach Respiratory/Chest: lungs clear Cardiovascular: normal rate, regular rhythm, no gallop/murmur Abdomen: soft, non tender, other - GT Extremities: other - + edema, right arm PICC Microbiology Date/Time Source Procedure Growth Status 08/12/20 12:00 Nasopharynx SARS-CoV-2 RdRp Gene Assay - Final Complete 08/11/20 14:30 Thoracic Fluid Gram Stain - Final Resulted 08/11/20 14:30 Thoracic Fluid Body Fluid Culture - Preliminary NO GROWTH AFTER 24 HOURS Resulted Laboratory Tests Test 08/12/20 17:44 08/13/20 05:22 POC Whole Blood Glucose 238 MG/DL (74-106) H 250 MG/DL (74-106) H Current Medications Medications (Trade) Dose Ordered Sig/Derrick Route PRN Reason Start Time Stop Time Status Last Admin Dose Admin Acetaminophen (Tylenol) 650 mg Q4H PRN NG For Pain 08/08/20 20:30 09/07/20 20:29 08/08/20 21:16 Acetaminophen (Tylenol) 650 mg Q4H PRN RECTAL Mild Pain (Pain Scale 1-3) 07/28/20 21:15 08/27/20 21:14 08/03/20 21:11 Acetaminophen (Tylenol) 650 mg Q6H PRN GT Temp >100.5 08/02/20 12:45 09/01/20 12:44 08/13/20 08:25 Ascorbic Acid (Vitamin C) 250 mg TWICE A DAY GT 08/10/20 18:00 09/08/20 17:59 08/13/20 08:04 Chlorhexidine Gluconate (Gwendolyn-Hex 2%) 1 applic DAILY@1999 TOPIC 07/30/20 20:00 10/28/20 19:59 08/12/20 20:24 Clonidine HCl (Catapres Tab) 0.1 mg Q4H PRN GT For High Blood Pressure 08/10/20 13:15 10/26/20 21:14 Dextrose (Dextrose 50%) 25 ml Q30M PRN IV Hypoglycemia 08/02/20 12:45 10/31/20 12:44 Dextrose (Dextrose 50%) 50 ml Q30M PRN IV Hypoglycemia 08/02/20 12:45 10/31/20 12:44 Furosemide (Lasix) 40 mg DAILY GT 08/13/20 09:00 09/12/20 08:59 08/13/20 08:04 Insulin Aspart (NovoLOG) per nurse, pt now on g-t... Q6HR SUBQ 08/02/20 12:00 10/31/20 11:59 08/13/20 05:38 Lansoprazole (Prevacid) 30 mg DAILY GT 08/11/20 09:00 09/10/20 08:59 08/13/20 08:04 Levetiracetam (Keppra) 1,000 mg Q12HR GT 08/11/20 21:00 09/10/20 20:59 08/13/20 08:04 Magnesium Hydroxide (Mom) 30 ml DAILYPRN PRN GT Constipation 08/05/20 21:45 09/04/20 21:44 08/05/20 22:06 Rosalinda Guerrero MD Aug 13, 2020 11:25
--- NOTE | 2020-08-13 11:40 | NUR ---
NURSE NOTES: Called [facility] and gave report to MANNY Goddard. Informed MANNY Goddard that patient noted with temperature of 99.[address] Guerrero is aware and patient is okay to be discharged with no antibiotics. MANNY Goddard acknowledged. Noted. Will continue to monitor patient.
--- NOTE | 2020-08-13 11:52 | NUR ---
NURSE NOTES: Per Dr. Montanez, discharge patient with right upper arm double lumen PICC. Noted.
[2020-08-13 12:00] VITALS: BP 119/77
--- NOTE | 2020-08-13 12:16 | Critical Care Progress Note ---
Assessment/Plan Assessment/Plan IMPRESSION: probable sepsis, hyponatremia, acute renal failure, chronic respiratory failure, thickened colon diffuse pneumonia, elevated lactic dehydrogenase, abdominal distention, severe protein-calorie malnutrition, seizure disorder. pneumonia, anemia, diffuse pulmonary infiltrates with bilateral pleural effusions, likely 3rd spacing PLAN repeat CXR- noted IV antibiotics per ID respiratory care Ventilatory support SNF meds supportive care monitor for seizures monitor residuals dc to snf and complete antibiotics impression, plan, and exam edited and reviewed in detail care discussed with personal care worker - Subjective Interval Events: cleared by ID care noted low grade fevers ROS Limited/Unobtainable: Yes Condition: stable EKG Rhythm: Sinus Rhythm Residuals: minimal Tube Feeding Tolerated: yes I&O: Intake and Output 08/12/20 08/13/20 19:00 07:00 Intake Total 20 ml 540 ml Output Total 950 ml 1500 ml Balance -930 ml -960 ml Free Water 200 ml Tube Feeding 20 ml 340 ml Output Urine Total 950 ml 1500 ml # Bowel Movements 7 3 Critical Care - Objective Last 24 Hour Vital Signs Date Time Temp Pulse Resp B/P (MAP) Pulse Ox O2 Delivery O2 Flow Rate FiO2 08/13/20 11:20 84 17 30 08/13/20 09:00 99.1 08/13/20 08:00 30 08/13/20 08:00 99.0 95 19 134/75 (94) 99 08/13/20 08:00 Mechanical Ventilator 08/13/20 07:42 105 08/13/20 07:12 94 17 30 08/13/20 04:00 81 08/13/20 04:00 30 08/13/20 04:00 Mechanical Ventilator 08/13/20 04:00 98.4 89 19 139/81 (100) 99 08/13/20 03:30 102 25 30 08/13/20 00:00 72 08/13/20 00:00 30 08/13/20 00:00 98.4 84 19 128/77 (94) 100 08/13/20 00:00 Mechanical Ventilator 08/12/20 23:03 104 17 30 08/12/20 20:00 98.2 93 20 130/61 (84) 96 08/12/20 20:00 30 08/12/20 20:00 Mechanical Ventilator 08/12/20 19:30 103 18 30 08/12/20 19:25 101 08/12/20 17:43 100.0 08/12/20 16:44 137 08/12/20 16:00 30 08/12/20 16:00 Mechanical Ventilator 08/12/20 15:48 91 08/12/20 15:45 82 21 35 08/12/20 15:30 100.6 Labs: Laboratory Tests 08/12/20 17:44: POC Whole Blood Glucose 238H 08/13/20 05:22: POC Whole Blood Glucose 250H Objective: GENERAL: An ill-appearing male, chronically ill. HEENT: Negative. Tracheostomy midline. The patient is with chronic tongue protrusion. LUNGS: Coarse breath sounds. moderate breath sounds CARDIAC: S1, S2. Regular rate and rhythm. ABDOMEN: Distended. Poor bowel sounds. EXTREMITIES: No cyanosis or clubbing. There is mild edema. NEUROLOGIC: Poorly responsive to pain. Micro: Microbiology Date/Time Source Procedure Growth Status 08/12/20 12:00 Nasopharynx SARS-CoV-2 RdRp Gene Assay - Final Complete 08/11/20 14:30 Thoracic Fluid Gram Stain - Final Resulted 08/11/20 14:30 Thoracic Fluid Body Fluid Culture - Preliminary NO GROWTH AFTER 24 HOURS Resulted Accucheck: 250 Bakari Montanez MD Aug 13, 2020 12:16
--- NOTE | 2020-08-13 13:13 | Cardiology Progress Note ---
Subjective DATE OF SERVICE: Aug 13, 2020 On vent support s/p thorocentesis 08/11/20, with fluid removal. No longer with congestion; secretions minimal. Monitor: sinus tachycardia with occ PAC's Objective Last 24 Hour Vital Signs Date Time Temp Pulse Resp B/P (MAP) Pulse Ox O2 Delivery O2 Flow Rate FiO2 08/13/20 12:00 30 08/13/20 12:00 Mechanical Ventilator 08/13/20 12:00 98.1 67 18 119/77 (91) 99 08/13/20 11:42 75 08/13/20 11:20 84 17 30 08/13/20 09:00 99.1 08/13/20 08:00 30 08/13/20 08:00 99.0 95 19 134/75 (94) 99 08/13/20 08:00 Mechanical Ventilator 08/13/20 07:42 105 08/13/20 07:12 94 17 30 08/13/20 04:00 81 08/13/20 04:00 30 08/13/20 04:00 Mechanical Ventilator 08/13/20 04:00 98.4 89 19 139/81 (100) 99 08/13/20 03:30 102 25 30 08/13/20 00:00 72 08/13/20 00:00 30 08/13/20 00:00 98.4 84 19 128/77 (94) 100 08/13/20 00:00 Mechanical Ventilator 08/12/20 23:03 104 17 30 08/12/20 20:00 98.2 93 20 130/61 (84) 96 08/12/20 20:00 30 08/12/20 20:00 Mechanical Ventilator 08/12/20 19:30 103 18 30 08/12/20 19:25 101 08/12/20 17:43 100.0 08/12/20 16:44 137 08/12/20 16:00 30 08/12/20 16:00 Mechanical Ventilator 08/12/20 15:48 91 08/12/20 15:45 82 21 35 08/12/20 15:30 100.6 ROS: unchanged HEENT: Thin Trach secretions, other - protruding tongue RHYTHM: NSR, ST, PACs LUNGS: diminished breath sounds - bilat, left-sided rhonchi CARDIAC: normal rate, regular rhythm, normal S1 and S2 ABDOMEN: normal bowel sounds, non tender, soft, no organomegaly, G-Tube intact EXTREMITIES: normal range of motion, no calf tenderness, trace edema Laboratory Tests Test 08/12/20 17:44 08/13/20 05:22 08/13/20 12:40 POC Whole Blood Glucose 238 MG/DL (74-106) H 250 MG/DL (74-106) H 277 MG/DL (74-106) H Microbiology Date/Time Source Procedure Growth Status 08/12/20 12:00 Nasopharynx SARS-CoV-2 RdRp Gene Assay - Final Complete 08/11/20 14:30 Thoracic Fluid Gram Stain - Final Resulted 08/11/20 14:30 Thoracic Fluid Body Fluid Culture - Preliminary NO GROWTH AFTER 24 HOURS Resulted Assessment/Plan Assessment/Plan Sepsis Possible perf viscous Respiratory failure Chronic encephalopathy Paroxysmal atrial ectopy Sinus tachycardia Anemia Dehydration/hypernatremia Hypokalemia Severe protein/calorie malnutrition Hypomagnesemia HC assoc PNA CHF, ac/chr diastolic now compensated Pleural effusions - s/p thorocentesis Maintenance dose diuretic Continue current dose beta toni. Antimicrobials Anti-sz medx Vent support Protein suppl Meds reviewed for transfer to subacute level of care Sea aMdison MD Aug 13, 2020 13:13
--- NOTE | 2020-08-13 13:30 | NUR ---
NURSE NOTES: Pt left via ambulance to [facility] with 2 senior software manager and 1 nurse. Pt left with [place] and R UA double lumen PICC. Vital signs stable. Report given to nurse. Rupesh, in [facility] received report.
--- NOTE | 2020-08-15 18:32 | Discharge Summary ---
Discharge Summary Discharge Summary _ DATE OF ADMISSION: 07/28/2020 DATE OF DISCHARGE: 08/13/2020 DISCHARGED BY: Dr. Cam Montanez CONSULTANTS: Dr. Sea Guerrero BRIEF HOSPITAL COURSE: Patient is an unfortunate 70-year-old male with chronic vent dependence, from subacute group home facility. He was transferred due to complaints of shortness of breath and hypoxemia. Patient was nonverbal at baseline patient he was unable to provide any history. He has history of encephalopathy, stroke, seizure, cirrhosis, chronic kidney disease. In the emergency room, he was noted to have elevated white count of 12,000. He had x-ray evidence of diffuse bila teral infiltrates concerning for pneumonia. He was pancultured and was admitted for further evaluation and care. He had a chest x-ray concerning for possible pneumoperitoneum. Surgeon was immediately consulted. CT scan was ordered and upon going to the CT, patient started to desaturate with trach cuff leak. Patient was then brought back to the emergency room for trach repair and was sent back for imaging. CAT scan of the abdomen showed lucency underlying the right hemidiaphragm. Extensive interstitial and alveolar infiltrates concerning for multifocal pneumonia. Patient was placed on n.p.o. He was started empirically on ant ibiotics. He was continued on vent support. G-tube was placed on intermittent suction. ID was consulted. Patient developed tachycardia and was tachypneic. He was given vancomycin and Zosyn. Amikacin was placed on hold. He was hypotensive. Blood pressure improved after IV fluid bolus and albumin infusion. He had poor IV access and a PICC line was inserted. Hemoglobin dropped to 6.8. He was given 2 units packed cell transfusion. There were no reports of bleeding. Sputum culture showed growth of acinetobacter. Antibiotic was changed to Unasyn. He was noted to have trach leak. Tracheostomy tube was changed. He had some facial twitching noted. He was continued on anti-seizure medication. Previous EEG was negative. WBC was improving. KUB showed unremarkable gas pattern. He was tolerating feeding. Chest CT showed bilateral moderate to large pleural effusion. He underwent successful ultrasound-guided thoracentesis of the left chest yielding 650 mL fluid. Patient was less congested. He continued to receive diuresis. Thoracentesis culture did not isolate any growth. He was observed off antibiotics. G-tube was changed at bedside. He was eventually cleared for discharge back to [facility]. FINAL DIAGNOSES: Sepsis Possible perforated viscus Respiratory failure Chronic encephalopathy Paroxysmal atrial ectopy Sinus tachycardia Anemia Dehydration/hypernatremia Hypokalemia Hyponatremia Urinary tract infection Diabetes mellitus Hypertension COPD Colitis Severe protein calorie malnutrition Hypomagnesemia Healthcare associated pneumonia/acinetobacter pneumonia CHF acute on chronic diastolic, now compensated Bilateral pleural effusion status post left lung thoracentesis. DISPOSITION: DC to subacute facility. DISCHARGE MEDICATIONS: Refer to Discharge Medication List. I have been assigned to complete a discharge summary on this account, I was not involved with the patient's management.--IAN Gonzalez Jacqueline Robles NP Aug 15, 2020 18:32
== END 2020-08-13 13:30 | DRG 870 ==
LOC: EDBD 12:02 → EMR 13:23 → EDBEDREQSVC 13:48 → EDBEDREQ 13:48 → ICU 14:18 → EDBEDREQ 15:44 → ICU 20:20 → 2W 08-01 17:20
PROC: 5A1955Z Respiratory Ventilation, Greater than 96 Consecutive Hours (ICD-10-PCS; principal; 2020-07-28)
PROC: 3E0G76Z Introduction of Nutritional Substance into Upper GI, Via Natural or Artificial Opening (ICD-10-PCS; principal; 2020-07-28)
PROC: 30233N1 Transfusion of Nonautologous Red Blood Cells into Peripheral Vein, Percutaneous Approach (ICD-10-PCS; 2020-07-30)
PROC: 02HV33Z Insertion of Infusion Device into Superior Vena Cava, Percutaneous Approach (ICD-10-PCS; 2020-07-30)
PROC: B548ZZA Ultrasonography of Superior Vena Cava, Guidance (ICD-10-PCS; 2020-07-30)
PROC: 0W9B3ZZ Drainage of Left Pleural Cavity, Percutaneous Approach (ICD-10-PCS; 2020-08-11)
PROC: 0D20XUZ Change Feeding Device in Upper Intestinal Tract, External Approach (ICD-10-PCS; 2020-08-12)
PROC: 0B21XFZ Change Tracheostomy Device in Trachea, External Approach (ICD-10-PCS; 2020-08-12)
DX: A41.9 Sepsis, unspecified organism (principal); L89.893 Pressure ulcer of other site, stage 3; E43 Unspecified severe protein-calorie malnutrition; I50.33 Acute on chronic diastolic (congestive) heart failure; J15.6 Pneumonia due to other Gram-negative bacteria; R53.2 Functional quadriplegia; N17.9 Acute kidney failure, unspecified; J96.10 Chronic respiratory failure, unspecified whether with hypoxia or hypercapnia; I13.0 Hypertensive heart and chronic kidney disease with heart failure and stage 1 through stage 4 chronic kidney disease, or unspecified chronic kidney disease; J44.0 Chronic obstructive pulmonary disease with (acute) lower respiratory infection; J90 Pleural effusion, not elsewhere classified; N39.0 Urinary tract infection, site not specified; G93.49 Other encephalopathy; K92.2 Gastrointestinal hemorrhage, unspecified; E87.1 Hypo-osmolality and hyponatremia; E87.0 Hyperosmolality and hypernatremia; R65.20 Severe sepsis without septic shock; L89.150 Pressure ulcer of sacral region, unstageable; L89.322 Pressure ulcer of left buttock, stage 2; Z93.0 Tracheostomy status; I95.9 Hypotension, unspecified; E11.22 Type 2 diabetes mellitus with diabetic chronic kidney disease; L89.611 Pressure ulcer of right heel, stage 1; E11.65 Type 2 diabetes mellitus with hyperglycemia; L89.896 Pressure-induced deep tissue damage of other site; Z93.1 Gastrostomy status; E83.42 Hypomagnesemia; R14.0 Abdominal distension (gaseous); G40.909 Epilepsy, unspecified, not intractable, without status epilepticus; F03.90 Unspecified dementia, unspecified severity, without behavioral disturbance, psychotic disturbance, mood disturbance, and anxiety; D64.9 Anemia, unspecified; R00.1 Bradycardia, unspecified; E86.0 Dehydration; E87.6 Hypokalemia; I49.1 Atrial premature depolarization; K74.60 Unspecified cirrhosis of liver; Z68.25 Body mass index [BMI] 25.0-25.9, adult; N18.9 Chronic kidney disease, unspecified; Y95 Nosocomial condition; M62.81 Muscle weakness (generalized); Z20.828 Contact with and (suspected) exposure to other viral communicable diseases; K52.9 Noninfective gastroenteritis and colitis, unspecified; K14.8 Other diseases of tongue; Z86.73 Personal history of transient ischemic attack (TIA), and cerebral infarction without residual deficits; Z74.01 Bed confinement status
CPT/HCPCS: 36415; 36569; 71045; 71250; 74018; 74177; 76937; 76942; 80048; 80053; 80202; 81003; 82270; 82550; 82553; 82728; 82803; 82962; 83605; 83615; 83735; 83880; 84484; 85007; 85025; 85379; 85610; 85730; 86140; 86710; 86850; 86900; 86901; 86920; 87040; 87070; 87081; 87086; 87181; 87205; 87324; 93005; 93970; 94002; 94003; 94664; 96361; 96365; 96368; 99291; J1815; J7030; J8499; U0002